=== PATIENT | male | born 1950 | race Caucasian/White ===

== ENCOUNTER 2016-09-13 04:58 | Emergency (ER) | payer OTHER, MEDICARE ==
[2016-09-13 05:02] VITALS: BP 128/96; PULSE 81; TEMP 97.4; BMI 25.8
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
== END 2016-09-13 05:11 | disposition home or self-care (01) ==
LOC: FER 04:58
DX: S61.215A Laceration without foreign body of left ring finger without damage to nail, initial encounter (principal); W26.0XXA Contact with knife, initial encounter; Y93.89 Activity, other specified; Y92.9 Unspecified place or not applicable
CPT/HCPCS: 99282-25

== ENCOUNTER 2017-02-18 16:05 | Emergency (ER) | payer OTHER, MEDICARE ==
--- NOTE | 2017-02-18 16:10 | PDOC ---
Attending Attestation - Resident Resident Name: Sophia Callahan - ED Attending Attestation I have performed the following: I have examined & evaluated the patient, The case was reviewed & discussed with the resident, I agree w/resident's findings & plan, Exceptions are as noted - HPI HPI: The patient is a 66 yo M HTN, HLD, ADHD, recurrent pneumonia, asthma, sciatica, L4 disc herniation, substance abuse (opioids) clean for 8 years who presents with pain radiating from his left lower back down to his L foot. Patient states he was performing side bending exercises with 45 lb resistance on 6 days ago. He states he woke up next morning with pain radiating down his leg to his foot. Patient states the pain is extremely similar to his previous Dx of sciatica. Patient also endorses paresthesias in his legs bilaterally. Patient states he saw a pain management doctor who gave them scripts for a L hip xray and MRI. Patient denies chest pain, palpitations and lightheadedness. Patient denies nausea, vomiting, diarrhea and abdominal pain. Patient denies fevers and chills. Social Hx: Former opioid abuser. Clean for 8 years. - Physicial Exam PE: GENERAL: Well developed, well nourished. Awake and alert. No acute distress. HEENT: Normocephalic, atraumatic. PERRLA, EOMI. No conjunctival pallor. Sclera are non- icteric. Moist mucous membranes. Oropharynx is clear. NECK: Supple. Full ROM. No JVD. Carotid pulses 2+ and symmetric, without bruits. No thyromegaly. No lymphadenopathy. CARDIOVASCULAR: Regular rate and rhythm. No murmurs, rubs, or gallops. Distal pulses are 2+ and symmetric. PULMONARY: No evidence of respiratory distress. Lungs clear to auscultation bilaterally. No wheezing, rales or rhonchi. ABDOMINAL: Soft. Non-tender. Non-distended. No rebound or guarding. No organomegaly. Normoactive bowel sounds. MUSCULOSKELETAL Normal range of motion at all joints. No point tenderness of lumbosacral spine. No inflammatory changes. No demonstrable sensory or motor deficits to LE but there is subjective tingling in the distribution of L4L5. No bony deformities or tenderness. No CVA tenderness. EXTREMITIES: No cyanosis. No clubbing. No edema. No calf tenderness. SKIN: Warm and dry. Normal capillary refill. No rashes. No jaundice. NEUROLOGICAL: No gross focal neurological deficits. PSYCHIATRIC: Cooperative. Good eye contact. Appropriate mood and affect. - Medical Decision Making Documentation prepared by Mary Lim, acting as certified medical assistant for Blake Fu MD/. <Mary Lim - Last Filed: 02/18/17 17:00> - HPI HPI: 02/18/17 17:12 - Medical Decision Making 02/18/17 17:12 Patient with symptoms of recurrent lumbar disc disease L4-L5. No demonstrable neurologic deficits. Prescribed analgesics and muscle relaxants, with follow-up orthopedic community living specialist. Pain is improved after medication, and he is adequately ambulatory with his at discharge to follow-up as directed. <Blake Motta - Last Filed: 02/18/17 17:14>
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
[2017-02-18] MEDS ORDERED: KETOROLAC TROMETHAMINE 60 MG/2 ML VIAL IVPUSH ONE (16:38)
[2017-02-18] MEDS ORDERED: KETOROLAC TROMETHAMINE 60 MG/2 ML VIAL IM ONE (16:39)
[2017-02-18] MEDS ORDERED: CYCLOBENZAPRINE HCL 10 MG TABLET (FP) PO ONE ×2 (16:41)
[2017-02-18] MEDS ORDERED: CYCLOBENZAPRINE HCL 10 MG TABLET (FP) ONE (16:43)
[2017-02-18] MEDS ORDERED: KETOROLAC TROMETHAMINE 60 MG/2 ML VIAL ONE (16:43)
[2017-02-18 17:02] VITALS: BP 116/81; PULSE 75; TEMP 98; BMI 24.7
== END 2017-02-18 17:48 | disposition home or self-care (01) ==
LOC: FER 16:05
PROC: 3E0233Z Introduction of Anti-inflammatory into Muscle, Percutaneous Approach (ICD-10-PCS; principal; 2017-02-18)
PROC: 3E0333Z Introduction of Anti-inflammatory into Peripheral Vein, Percutaneous Approach (ICD-10-PCS; 2017-02-18)
DX: M54.32 Sciatica, left side (principal); F90.9 Attention-deficit hyperactivity disorder, unspecified type; Z87.01 Personal history of pneumonia (recurrent); E78.5 Hyperlipidemia, unspecified; I10 Essential (primary) hypertension
CPT/HCPCS: 96372; 96374; 99283-25

== ENCOUNTER 2017-03-21 22:18 | Emergency (ER) | payer OTHER, MEDICARE ==
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
[2017-03-21 22:26] VITALS: BP 135/85; PULSE 95; TEMP 98.2; BMI 26.6
== END 2017-03-21 22:35 | disposition home or self-care (01) ==
LOC: FER 22:18
DX: Z76.0 Encounter for issue of repeat prescription (principal); J44.9 Chronic obstructive pulmonary disease, unspecified; K21.9 Gastro-esophageal reflux disease without esophagitis; I10 Essential (primary) hypertension; E78.00 Pure hypercholesterolemia, unspecified; F90.9 Attention-deficit hyperactivity disorder, unspecified type; Z87.820 Personal history of traumatic brain injury
CPT/HCPCS: 99281-25

== ENCOUNTER 2017-06-15 14:55 | Emergency (ER) | payer OTHER ==
[2017-06-15 15:06] VITALS: BP 110/76; PULSE 87; BMI 25.2
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
[2017-06-15 15:37] LABS: BASOPHIL 0.5 % (0-2.0); EOSINOPHIL 2.8 % (0-4.5); MCH 29.6 pg (25.7-33.7); MCHC 32.8 g/dl (32.0-35.9); MEAN CELL VOLUME 90.4 fl (80-96); MEAN PLT VOLUME 9.5 fl (7.5-11.1); NEUTROPHILS 73.7 % (42.8-82.8); PLATELET COUNT 262 K/MM3 (134-434); RDW 14.4 % (11.9-15.9); WHITE BLOOD COUNT 10.9 K/mm3 (4.0-10.0)
[2017-06-15 15:45] LABS: ALBUMIN 3.9 g/dl (3.4-5.0); ALK PHOS 86 U/L (45-117); ANION GAP 6 (8-16); BILIRUBIN,TOTAL 0.2 mg/dL (0.2-1.0); CALCIUM 9.5 mg/dL (8.5-10.1); CO2 29 mmol/L (21-32); CREATININE 1.2 mg/dL (0.7-1.3); GLUCOSE,RANDOM 134 mg/dL (74-106); SGOT/AST 30 U/L (15-37); SGPT/ALT 48 U/L (12-78); TOT PROT 7.7 g/dl (6.4-8.2)
[2017-06-15 15:55] LABS: INR 1.07 (0.82-1.09); PROTHROMBIN TIME (PATIENT) 12.1 SEC (9.98-11.88)
[2017-06-15 15:58] LABS: ACTIVATED PTT 33.1 SECONDS (26.9-34.4)
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
== END 2017-06-15 18:53 | disposition home or self-care (01) ==
LOC: JER 14:55
CPT/HCPCS: 36415; 70450-TC; 73070-TC-RT; 80053; 85025; 85610; 85730; 99281-25

== ENCOUNTER 2017-08-19 22:21 | Emergency (ER) | payer OTHER, MEDICARE ==
[2017-08-19 22:27] VITALS: BP 112/58; PULSE 72; TEMP 97.6; BMI 28.0
[2017-08-19] MEDS ORDERED: ACETAMINOPHEN 500 MG TABLET (FP) PO ONE (22:27)
--- NOTE | 2017-08-19 22:28 | PDOC ---
History of Present Illness - General Chief Complaint: Injury Stated Complaint: S/P FALL HIT HEAD Time Seen by Provider: 08/19/17 22:22 History Source: Patient Exam Limitations: No Limitations - History of Present Illness Initial Comments: 08/19/17 22:29 This is a 66-year-old male who has history of chronic back pain, hypertension, high cholesterol, and concussions in the past. Patient said that he was carrying some groceries into his house when he slipped on some wet grass and fell hitting the back of his head on the ground. Patient did not pass out. Patient complaining of headache to the back but said he did take some tramadol for the headache. Patient denies any nausea. Patient said he had some blurry vision at the time immediately after the fall. Patient denies any extremity injuries or pain. PAST MEDICAL HISTORY: no significant history PAST SURGICAL HISTORY: no significant history FAMILY HISTORY: no pertinant history SOCIAL HISTORY: Pt lives with family and is employed. MEDICATIONS: reviewed ALLERGIES: As per nursing notes Review of Systems General: No fevers or chills, no weakness, no weight loss HEENT: No change in vision. No sore throat,. No ear pain CardioVascular: No chest pain or shortness of breath Respiratory:No cough, or wheezing. Gastrointestinal: no nausea, vomitting, diarrhea or constipation, No rectal bleeding Genitourinary: No dysuria, hematuria, or frequency Musculoskeletal: No joint or muscle pain or swelling Neurologic: No headache, vertigo, dizziness or loss of consciousness Psychiatric: nor depression Skin: No rashes or easy bruising Endocrine: no increased thirst or abnormal weight change Allergic: no skin or latex allergy All other systems reviewed and normal Exam: General: Well-nourished well-developed individual, no acute distress HEENT: Throat: Normal, tonsils normal, no erythema or exudate Neck: Supple, no meningeal signs, no lymphadenopathy Head posterior occiput there is no palpable contusion or tenderness Cervical spine: There is no tenderness on palpation of the spinous processes there is full range of motion without pain Eyes::Pupils equal reactive and round, extraocular motion intact Chest: Nontender to palpation Cardiac: S1-S2 normal, regular rate and rhythm, no murmurs rubs or gallops Respiratory: Lungs clear to auscultation bilateral Abdomen: Soft, nondistended, normal bowel sounds, nontender to palpation diffusely Extremities: Warm, dry, no cyanosis, clubbing, or edema Skin: No rashes Neuro: Alert and oriented x3, CN II - XII intact, nonfocal exam with normal strength, normal sensation, normal reflexes, normal gait, Psych: Normal mood and affect Medical decision making this is a 66-year-old male who slipped and fell hitting the back of his head on the ground. Patient did not pass out but does have some nausea and will obtain a CAT scan to rule out any intracranial pathology given his age We'll reassess and follow up on the results of the CAT scan 08/19/17 23:[address] normal no acute pathology, vision remains without complaints, headache is improved and patient expressed that he wants to go home as soon as possible Assessment and plan: This is 66-year-old male who slipped and fell hitting his head. Patient had a head CT that was normal. Patient had no other evidence of any other injuries including no cervical spine injury or extremity injuries. Patient given head injury discharge instructions and discharged home. Past History - Past Medical History Allergies/Adverse Reactions: Allergies Allergy/AdvReac Type Severity Reaction Status Date / Time lamotrigine [From Lamictal] Allergy Intermediate Verified 06/15/17 15:06 nickel Allergy Verified 06/15/17 15:06 trazodone Allergy Verified 06/15/17 15:06 gatifloxacin [From Tequin] AdvReac Intermediate DIARRHEA Verified 06/15/17 15:06 quetiapine fumarate AdvReac Intermediate DIZZINESS, Verified 06/15/17 15:06 [From Seroquel] NIGHTMARES zolpidem tartrate AdvReac Mild DEPRESSION, Verified 06/15/17 15:06 [From Ambien] DISORIENTED Home Medications: Ambulatory Orders Amlodipine Besylate [Norvasc -] 10 mg PO DAILY 12/24/11 Aspirin [Ecotrin] 325 mg PO DAILY 06/07/16 Acetaminophen [Tylenol .Regular Strength -] 650 mg PO Q4H PRN #0 tablet Docusate Sodium [Colace -] 100 mg PO TID capsule 06/10/16 Cyclobenzaprine HCl [Flexeril -] 5 mg PO TID PRN #30 tablet 02/18/17 Ibuprofen 800 mg PO TID #30 tablet 02/18/17 Tramadol HCl 50 mg PO TID PRN #30 tablet MDD 150 MG 02/18/17 Lorazepam [Ativan] 2 mg PO TID #5 tablet MDD 3 03/21/17 Diclofenac Sodium [Voltaren] 2 gm TP QID PRN #100 gel..gram. 06/15/17 Anemia: No Asthma: Yes Cancer: No Cardiac Disorders: No CVA: No COPD: Yes CHF: No Dementia: No Diabetes: No GI Disorders: Yes (GERD) Disorders: No HTN: Yes Hypercholesterolemia: Yes Liver Disease: No Psychiatric Problems: Yes (ADHD, PANIC ATTACKS) Seizures: No Thyroid Disease: No - Surgical History Abdominal Surgery: No Appendectomy: No Cardiac Surgery: No Cholecystectomy: No Lung Surgery: No Neurologic Surgery: No Orthopedic Surgery: Yes (LT SHOULDER SX) - Immunization History Immunization Up to Date: Yes - Suicide/Smoking/Psychosocial Hx Smoking Status: No Smoking History: Unknown if ever smoked Have you smoked in the past 12 months: No Number of Cigarettes Smoked Daily: 0 'Breaking Loose' booklet given: 06/07/16 Hx Alcohol Use: No Drug/Substance Use Hx: No Substance Use Type: None Hx Substance Use Treatment: No *DC/Admit/Observation/Transfer Diagnosis at time of Disposition: Head injury Qualifiers: Encounter type: initial encounter Qualified Code(s): S09.90XA - Unspecified injury of head, initial encounter Fall Qualifiers: Encounter type: initial encounter Qualified Code(s): W19.XXXA - Unspecified fall, initial encounter - Discharge Dispostion Disposition: HOME Condition at time of disposition: Good - Referrals Referrals: Richy Castro MD [Primary Care Provider] - - Patient Instructions Printed Discharge Instructions: DI for Closed Head Injury Additional Instructions: Tylenol as needed for pain 2 extra strength tablets every 4-6 hours Return to the emergency department immediately with ANY new, persistent or worsening symptoms. Continue any medications as previously prescribed by your physician. You should follow up with your primary doctor as soon as possible regarding today's emergency department visit. . Please make sure your doctor reviews the results of your emergency evaluation. Thank you for coming to the Emergency Department today for your care. It was a pleasure to see you today. Please note that your evaluation is INCOMPLETE until you follow-up with your doctor. Someone should check on you once tonight during the night. You should be arousable to your Normal level of arousability for that time of the night. If you have been vomiting, have had a seizure, or you are unable to be aroused or the person checking on you is concerned that there has been a change in your mental status they should call 911 and have you brought back to the emergency department. - Post Discharge Activity
[2017-08-19] MEDS ORDERED: ACETAMINOPHEN 325 MG TABLET (FP) ONE (22:30)
== END 2017-08-19 23:13 | disposition home or self-care (01) ==
LOC: FER 22:21
DX: S09.90XA Unspecified injury of head, initial encounter (principal); W18.39XA Other fall on same level, initial encounter; Y93.89 Activity, other specified; Y92.008 Other place in unspecified non-institutional (private) residence as the place of occurrence of the external cause; F90.9 Attention-deficit hyperactivity disorder, unspecified type; I10 Essential (primary) hypertension; E78.00 Pure hypercholesterolemia, unspecified; K21.9 Gastro-esophageal reflux disease without esophagitis; J45.909 Unspecified asthma, uncomplicated
CPT/HCPCS: 70450-TC; 99282-25

== ENCOUNTER 2017-11-14 15:46 | Emergency (ER) | payer OTHER, MEDICARE ==
[2017-11-14 16:23] VITALS: BP 130/70; PULSE 70; TEMP 98.7; BMI 25.7
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
[2017-11-14 18:18] LABS: BASO % 0.2 % (0-2.0); EOS % 0.1 % (0-4.5); HEMATOCRIT 45.1 % (35.4-49); LYMPH % 9.5 % (8-40); MCH 29.8 pg (25.7-33.7); MCHC 33.3 g/dl (32.0-35.9); MEAN CELL VOLUME 89.6 fl (80-96); MEAN PLT VOLUME 9.6 fl (7.5-11.1); NEUT % 85.2 % (42.8-82.8); PLATELET COUNT 273 K/MM3 (134-434); RBC 5.03 M/mm3 (4.00-5.60); RDW 13.3 % (11.9-15.9)
[2017-11-14 18:19] LABS: ALK PHOS 75 U/L (32-92); ANION GAP 8 (8-16); BLOOD UREA NITROGEN 17 mg/dl (7-18); CALCIUM 9.2 mg/dl (8.4-10.2); CHLORIDE 102 mmol/L (98-107); CO2 26 mmol/L (22-28); GLUCOSE,RANDOM 102 mg/dl (74-106); POTASSIUM 3.7 mmol/L (3.5-5.1); SGOT/AST 35 U/L (10-42); SGPT/ALT 31 U/L (10-40); SODIUM 136 mmol/L (136-145); TOT PROT 7.3 g/dl (6.4-8.3)
[2017-11-14 18:47] LABS: BILIRUBIN,TOTAL < 0.5 mg/dl (0.2-1.0)
[2017-11-14] MEDS ORDERED: AZITHROMYCIN 250 MG TABLET PO ONE (18:51)
[2017-11-14] MEDS ORDERED: AZITHROMYCIN 250 MG TABLET ONE (18:56)
--- NOTE | 2017-11-15 08:36 | EKG ---
Test Reason : Blood Pressure : / mmHG Vent. Rate : 061 BPM Atrial Rate : 061 BPM P-R Int : 144 ms QRS Dur : 096 ms QT Int : 430 ms P-R-T Axes : 069 004 045 degrees QTc Int : 432 ms NORMAL SINUS RHYTHM POSSIBLE LEFT ATRIAL ENLARGEMENT POSSIBLE INFERIOR INFARCT (CITED ON OR BEFORE 07-JUN-2008) ABNORMAL ECG WHEN COMPARED WITH ECG OF 07-JUN-2008 16:20, MINIMAL CRITERIA FOR ANTERIOR INFARCT ARE NO LONGER PRESENT Confirmed by ALPESH DAY, FELICIA ([id number]) on 11/15/2017 8:36:08 AM Referred By: MOE Confirmed By:FELICIA BETTS MD
== END 2017-11-14 19:06 | disposition home or self-care (01) ==
LOC: FER 15:46
DX: J44.9 Chronic obstructive pulmonary disease, unspecified (principal); J20.9 Acute bronchitis, unspecified
CPT/HCPCS: 36415; 71046-TC-FY; 80053; 84484; 85025; 93005; 99282-25

== ENCOUNTER 2018-09-06 12:39 | Inpatient (IN) | payer OTHER ==
--- NOTE | 2018-09-06 13:06 | PDOC ---
History of Present Illness - General Chief Complaint: Shortness of Breath Stated Complaint: SHORT OF BREATH Time Seen by Provider: 09/06/18 12:41 - History of Present Illness Initial Comments: 09/06/18 13:16 67yo M hx HTN, HL, TBI, asthma/bronchiectasis on albuterol and advair p/w 2 days of SOB, lightheadness, rapid breathing, productive cough of yellow sputum, and anxiety. Pt also states he had 1 episode of blood in his sputum today prompting him to come to the ED. Also reports 1 day of fever with tmax of 102. Denies CP, headache, focal weakness/numbness, abd pain, LE edema, N/V/D. Pt concerned he has PNA. Past History - Past Medical History Allergies/Adverse Reactions: Allergies Allergy/AdvReac Type Severity Reaction Status Date / Time lamotrigine [From Lamictal] Allergy Intermediate Verified 11/14/17 16:04 nickel Allergy Verified 11/14/17 16:04 trazodone Allergy Verified 11/14/17 16:04 gatifloxacin [From Tequin] AdvReac Intermediate DIARRHEA Verified 11/14/17 16:04 quetiapine fumarate AdvReac Intermediate DIZZINESS, Verified 11/14/17 16:03 [From Seroquel] NIGHTMARES zolpidem tartrate AdvReac Mild DEPRESSION, Verified 11/14/17 16:03 [From Ambien] DISORIENTED Home Medications: Ambulatory Orders Amlodipine Besylate [Norvasc -] 10 mg PO DAILY 12/24/11 Tramadol HCl 50 mg PO TID PRN #30 tablet MDD 150 MG 02/18/17 Aspirin 81 mg PO DAILY 11/14/17 Aspirin/Acetaminophen/Caffeine [Excedrin Migraine Caplet] 1 each PO PRN Azithromycin [Zithromax 250mg Tablets -] 250 mg PO DAILY #4 tablet 11/14/17 Clonidine HCl 0.2 mg PO QID 11/14/17 Dextroamphetamine/Amphetamine [Adderall 10 mg Tablet] 30 mg PO TID 11/14/17 Lorazepam [Ativan] 4 mg PO TID MDD 3 11/14/17 Anemia: No Asthma: Yes Cancer: No Cardiac Disorders: No CVA: No COPD: Yes CHF: No Dementia: No Diabetes: No GI Disorders: Yes (GERD) Disorders: No HTN: Yes Hypercholesterolemia: Yes Liver Disease: No Psychiatric Problems: Yes (ADD) Seizures: No Thyroid Disease: No - Surgical History Abdominal Surgery: No Appendectomy: No Cardiac Surgery: No Cholecystectomy: No Lung Surgery: No Neurologic Surgery: No Orthopedic Surgery: Yes (LT SHOULDER SX) - Immunization History Immunization Up to Date: Yes - Suicide/Smoking/Psychosocial Hx Smoking Status: No Smoking History: Never smoked Have you smoked in the past 12 months: No Number of Cigarettes Smoked Daily: 0 'Breaking Loose' booklet given: 06/07/16 Hx Alcohol Use: No Drug/Substance Use Hx: No Substance Use Type: None Hx Substance Use Treatment: No Review of Systems - Review of Systems Comments:: 09/06/18 14:03 GENERAL/CONSTITUTIONAL: +fever and chills. No weakness. HEAD, EYES, EARS, NOSE AND THROAT: No change in vision. No ear pain or discharge. No sore throat. GASTROINTESTINAL: No nausea, vomiting, diarrhea or constipation. GENITOURINARY: No dysuria, frequency, or change in urination. CARDIOVASCULAR: No chest pain, +shortness of breath. RESPIRATORY: +cough, hemoptysis. No wheezing MUSCULOSKELETAL: No joint or muscle swelling or pain. No neck or back pain. SKIN: No rash NEUROLOGIC: No headache, vertigo, loss of consciousness, or change in strength/ sensation. ENDOCRINE: No increased thirst. No abnormal weight change. HEMATOLOGIC/LYMPHATIC: No anemia, easy bleeding, or history of blood clots. ALLERGIC/IMMUNOLOGIC: No hives or skin allergy. *Physical Exam - Vital Signs Last Vital Signs Temp Pulse Resp BP Pulse Ox 99.5 F 110 H 40 H 155/76 100 09/06/18 12:40 09/06/18 12:40 09/06/18 12:40 09/06/18 12:40 09/06/18 12:40 - Physical Exam Comments: 09/06/18 14:05 GENERAL: Awake, alert, and fully oriented, in mild respiratory distress speaking in 3-4 word sentences EYES: PERRLA, EOMI, sclera anicteric, conjunctiva clear ENT: Nares patent, oropharynx clear without exudates. Moist mucosa LUNGS: +crackles b/l R>L, +subcostal retractions, tachypneic to 30 HEART: Regular rate and rhythm, normal S1 and S2, no murmurs, rubs or gallops ABDOMEN: Soft, nontender, normoactive bowel sounds. No guarding, no rebound. No masses : rectal temp 101 EXTREMITIES: Normal range of motion, no edema. No cords, erythema, or tenderness NEUROLOGICAL: Normal speech, cranial nerves intact, equal strength and sensation b/l, normal gait SKIN: Warm, Dry, normal turgor, no rashes or lesions noted. Moderate Sedation - Procedure Monitoring Vital Signs: Procedure Monitoring Vital Signs Temperature 99.5 F 09/06/18 12:40 Pulse Rate 110 H 09/06/18 12:40 Respiratory Rate 40 H 09/06/18 12:40 Blood Pressure 155/76 09/06/18 12:40 O2 Sat by Pulse Oximetry (%) 100 09/06/18 12:40 Heart Score/ECG Review #1 09/06/18 14:09 Twelve-lead EKG was performed and reviewed by me. Twelve-lead EKG was performed and reviewed by me. Normal sinus rhythm, rate 96. Normal axis. Wavy baseline but no ARIELA seen ED Treatment Course - LABORATORY CBC & Chemistry Diagram: 09/06/18 01:26 09/06/18 13:54 Medical Decision Making - Critical Care Time Total Critical Care Time (minutes): 60 Critical Care Statement: The care of this patient involved high complexity decision making to prevent further life threatening deterioration of the patient 's condition and/or to evaluate & treat vital organ system(s) failure or risk of failure. - Medical Decision Making 09/06/18 14:10 67yo M w MMP including asthma/bronchiectasis presents to the ED with SOB, hemoptysis, fever. Vitals with fever 101, tachypnea, hypoxia 87%. Exam with fair air movement with minimal wheezing, and b/l R>L crackles. Will put pt on bipap, treat with duonebs, steroids, CAP coverage. Plan to check labs, ABG as well. 09/06/18 17:29 ABG wnl (was done before bipap) Pt much more comfortable after 3 hours on bipap, states SOB improved and requests dinner pt weaned off bipap now to NC O2 sat 90-93%, RR 20 eating dinner Case discussed wtih Dr. Chapin, pt admitted to in tele Case discussed in detail with admitting physician including history, physical exam and ancillary studies. Admitting physician has assumed care for the patient, will follow all pending diagnostics and will complete the evaluation and treatment. *DC/Admit/Observation/Transfer Diagnosis at time of Disposition: Pneumonia, SOB (shortness of breath), Productive cough - Discharge Dispostion Condition at time of disposition: Stable Decision to Admit order: Yes - Referrals Referrals: Bhupinder Gonzalez MD [Staff Physician] - - Patient Instructions - Post Discharge Activity - Attestations Physician Attestion: 09/06/18 17:31 I, Dr. Karolina Yanez MD, attest that this document has been prepared under my direction and personally reviewed by me in its entirety. I further attest, that it accurately reflects all work, treatment, procedures and medical decision -making performed by me.
[2018-09-06] MEDS ORDERED: CEFTRIAXONE 1,000 MG in DEXTROSE 5%-WATER - 50 ML IVPB ONE (13:58)
[2018-09-06] MEDS ORDERED: AZITHROMYCIN IVPB 500 MG in DEXTROSE 5%-WATER - 250 ML IVPB ONE (13:59)
[2018-09-06] MEDS ORDERED: cefTRIAXone SODIUM 1 GM VIAL ONE (14:08)
[2018-09-06] MEDS ORDERED: methylPREDNISolone NA SUCC 125 MG/2 ML VIAL ONE (14:12)
[2018-09-06] MEDS ORDERED: ALBUTEROL SO4 2.5/IPRATROPIUM 0.5 INH SOL 3 ML VIAL.NEB. NEB ONE ×2 (14:13→14:40)
[2018-09-06] MEDS ORDERED: ACETAMINOPHEN 1000 MG/100 ML VIAL (NON FORMULARY) IVPB ONE (14:20)
[2018-09-06] MEDS ORDERED: ACETAMINOPHEN INJECTION 100 ML IVPB ONE (14:27)
[2018-09-06 14:30] LABS: ALBUMIN 3.4 g/dl (3.4-5.0); ALK PHOS 73 U/L (45-117); ANION GAP 12 MMOL/L (8-16); BILIRUBIN,TOTAL 0.9 mg/dl (0.2-1); BLOOD UREA NITROGEN 12 mg/dl (7-18); CALCIUM 8.7 mg/dl (8.5-10); CHLORIDE 105 mmol/L (98-107); CO2 21 mmol/L (21-32); GLUCOSE,RANDOM 120 mg/dl (74-106); POTASSIUM 3.8 mmol/L (3.5-5.1); SGOT/AST 53 U/L (15-37); SGPT/ALT 44 U/L (13-61); SODIUM 138 mmol/L (136-145); TOT PROT 7.1 g/dl (6.4-8.2)
[2018-09-06 14:36] LABS: BASO % 0.4 % (0-2.0); EOS % 1.2 % (0-4.5); HEMOGLOBIN 11.8 GM/dl (11.7-16.9); LYMPH % 9.8 % (8-40); MEAN CELL VOLUME 84.4 fl (80-96); MEAN PLT VOLUME 9.3 fl (7.5-11.1); MONO % 7.8 % (3.8-10.2); NEUT % 80.8 % (42.8-82.8); PLATELET COUNT 272 K/MM3 (134-434); RBC 4.38 M/mm3 (4.00-5.60); RDW 13.3 % (11.9-15.9); WHITE BLOOD COUNT 9.8 K/mm3 (4.0-10.8)
[2018-09-06] MEDS ORDERED: methylPREDNISolone NA SUCC 125 MG/2 ML VIAL IVPB ONE (14:40)
[2018-09-06] MEDS ORDERED: AZITHROMYCIN 500 MG VIAL IVPB ONE (14:47)
[2018-09-06 16:21] LABS: ARTERIAL BLD GAS O2 SATURATION 99.2 % (90-98.9); ARTERIAL BLOOD GAS BASE EXCESS -1.8 meq/l (-2-2); ARTERIAL BLOOD GAS PCO2 29.2 mmHg (35-45); ARTERIAL BLOOD GAS pH 7.47 (7.35-7.45)
[2018-09-06 16:25] LABS: PH,URINE 8.5 (4.5-8); URINE APPEARANCE Clear; URINE BILIRUBIN Negative (NEGATIVE); URINE COLOR Yellow; URINE GLUCOSE (UA) Negative (NEGATIVE); URINE KETONE Negative (NEGATIVE); URINE LEUK ESTERASE Negative (NEGATIVE); URINE NITRITE Negative (NEGATIVE); URINE PROTEIN Negative (NEGATIVE); URINE UROBILINOGEN 0.2 (0.2-1.0)
[2018-09-06 18:28] VITALS: BMI 26.9
[2018-09-06] MEDS: ACETAMINOPHEN 325 MG TABLET (FP) PO PRN (19:10)
[2018-09-06] MEDS ORDERED: ACETAMINOPHEN 325 MG TABLET (FP) PO PRN (19:53)
[2018-09-06] MEDS ORDERED: ACETAMINOPHEN PO PRN (19:57)
[2018-09-06] MEDS ORDERED: traMADol HCL 50 MG TABLET PO PRN (19:57)
[2018-09-06] MEDS ORDERED: ACETAMINOPHEN 325 MG TABLET (FP) ONE (19:59)
[2018-09-06] MEDS ORDERED: DOXEPIN HCL 25 MG CAPSULE PO SCH ×2 (20:00→22:00)
[2018-09-06] MEDS ORDERED: BUDESONIDE/FORMETEROL FUMARATE 160/4.5 mcg INHALER IH SCH (20:00)
[2018-09-06] MEDS: ALBUTEROL SO4 0.083% IH SOL 2.5 MG/3 ML VIAL.NEB. NEB PRN (20:10)
[2018-09-06] MEDS: methylPREDNISolone NA SUCC 40 MG/1 ML VIAL IVPUSH SCH (20:13)
--- NOTE | 2018-09-06 20:25 | HP ---
CHIEF COMPLAINT: worsening shortness of breath and cough for 2 days HISTORY OF PRESENT ILLNESS: This is a 67 year old male with history significant for traumatic brain injury, attention deficit disorder(on adderal), asthma/bronchiectasis (on albuterol and advair), hypertension(on amlodipine) and hyperlipidemia who presents with 2 days of SOB, productive cough of yellow sputum, lightheadedness and anxiety. Pt also reported he had 1 episode of bloody sputum and fever with temperature maximum of 102. He denied chest pain, headache, focal weakness/numbness, abdominal pain ,nausea, vomiting or diarrhea. In the ER he had wheezing and crackles. He was treated with duonebulizers , IV antibiotics with one dosage of IV Azithromycin 500 mg , ceftriaxone 1 gm and methylprednisolone 125 mg. He had a normal ABG, initially was placed on a bipap machine and weaned off. Labs notable for a normal WBC and lactic acid level, BNP 2157. Influenzae A and B were negative. He was admitted for further medical management. Recent Travel:Denies PAST MEDICAL HISTORY: TBI Attention deficit disorder Asthma/bronchiectasis Hypertension Hyperlipidemia Anxiety PAST SURGICAL HISTORY:tonsillectomy, left rotator cuff surgery Social History: Smoking: denies Alcohol:denies Drugs: denies Family History:noncontributory Allergies lamotrigine [From Lamictal] Allergy (Intermediate, Verified 11/14/17 16:04) nickel Allergy (Verified 11/14/17 16:04) trazodone Allergy (Verified 11/14/17 16:04) HALLUCINATIONS gatifloxacin [From Tequin] Adverse Reaction (Intermediate, Verified 11/14/17 16: 04) DIARRHEA quetiapine fumarate [From Seroquel] Adverse Reaction (Intermediate, Verified 16:03) DIZZINESS, NIGHTMARES zolpidem tartrate [From Ambien] Adverse Reaction (Mild, Verified 11/14/17 16:03) DEPRESSION, DISORIENTED HOME MEDICATIONS: Home Medications Medication Instructions Recorded Amlodipine Besylate [Norvasc -] 10 mg PO DAILY 12/24/11 Tramadol HCl 50 mg PO TID PRN #30 tablet MDD 02/18/17 150 MG Aspirin 81 mg PO DAILY 11/14/17 Aspirin/Acetaminophen/Caffeine 1 each PO PRN 11/14/17 [Excedrin Migraine Caplet] Azithromycin [Zithromax 250mg 250 mg PO DAILY #4 tablet 04/21/18 Tablets -] Clonidine HCl 0.2 mg PO QID 11/14/17 Dextroamphetamine/Amphetamine 30 mg PO TID 11/14/17 [Adderall 10 mg Tablet] Lorazepam [Ativan] 4 mg PO TID MDD 3 11/14/17 Acetaminophen 8 Hour 650 mg PO TID PRN 09/06/18 REVIEW OF SYSTEMS CONSTITUTIONAL: Absent: fever, chills, diaphoresis, generalized weakness, malaise, loss of appetite, weight change HEENT: Absent: rhinorrhea, nasal congestion, throat pain, throat swelling, difficulty swallowing, mouth swelling, ear pain, eye pain, visual changes CARDIOVASCULAR: Absent: chest pain, syncope, palpitations, irregular heart rate, lightheadedness , peripheral edema RESPIRATORY: Absent: cough, shortness of breath, dyspnea with exertion, orthopnea, wheezing, stridor, hemoptysis(one episode) GASTROINTESTINAL: Absent: abdominal pain, abdominal distension, nausea, vomiting, diarrhea, constipation, melena, hematochezia GENITOURINARY: Absent: dysuria, frequency, urgency, hesitancy, hematuria, flank pain, genital pain MUSCULOSKELETAL: Absent: myalgia, arthralgia, joint swelling, back pain, neck pain SKIN: Absent: rash, itching, pallor HEMATOLOGIC/IMMUNOLOGIC: Absent: easy bleeding, easy bruising, lymphadenopathy, frequent infections ENDOCRINE: Absent: unexplained weight gain, unexplained weight loss, heat intolerance, cold intolerance NEUROLOGIC: Absent: headache, focal weakness or paresthesias, dizziness, unsteady gait, seizure, mental status changes, bladder or bowel incontinence PSYCHIATRIC: Absent: anxiety, depression, suicidal or homicidal ideation, hallucinations. PHYSICAL EXAMINATION Vital Signs - 24 hr 09/06/18 09/06/18 09/06/18 12:40 13:00 13:50 Temperature 99.5 F 101 F H Pulse Rate 110 H 102 H Pulse Rate [ Apical] Respiratory 40 H Rate Blood Pressure 155/76 Blood Pressure [Arm] O2 Sat by Pulse 100 94 L 87 L Oximetry (%) 09/06/18 09/06/18 09/06/18 14:05 14:51 14:52 Temperature Pulse Rate 89 Pulse Rate [ 91 H Apical] Respiratory 23 H Rate Blood Pressure Blood Pressure 114/84 [Arm] O2 Sat by Pulse 100 100 Oximetry (%) 09/06/18 09/06/18 09/06/18 14:55 15:00 16:03 Temperature Pulse Rate 96 H Pulse Rate [ 86 85 Apical] Respiratory 26 H 22 H Rate Blood Pressure Blood Pressure 134/70 119/73 [Arm] O2 Sat by Pulse 100 100 100 Oximetry (%) 09/06/18 09/06/18 09/06/18 17:15 18:19 18:24 Temperature 98.1 F 97.8 F Pulse Rate 92 H 93 H Pulse Rate [ 94 H Apical] Respiratory 22 H 19 20 Rate Blood Pressure 112/82 128/57 L Blood Pressure 102/86 [Arm] O2 Sat by Pulse 100 88 L Oximetry (%) GENERAL: awake, alert and oriented to person place and time, anxious HEAD: normal with no signs of trauma EYES: pupils equal, round and reactive to light EARS, NOSE, THROAT: ears normal, nares patent NECK: normal range of motion supple LUNGS: breath sounds equal, no wheezing, no rales, no use of accessory muscles HEART: Regular rate and rhythm, normal S1 and S2 without murmur, rub or gallop ABDOMEN: soft, nontender, not distended, normoactive bowel sounds, no guarding, no rebound, no masses MUSCULOSKELETAL: normal range of motion at all joints UPPER EXTREMITIES: 2+ pulses, warm, well-perfused LOWER EXTREMITIES: 2+ pulses, warm, well-perfused 1 + edema present bilaterally NEUROLOGICAL: no neuro focal deficits PSYCHIATRIC: cooperative, anxious, does not give good eye contact SKIN: warm, dry, normal turgor, no rashes or lesions noted, normal capillary refill Laboratory Results - last 24 hr 09/06/18 09/06/18 09/06/18 01:26 01:45 13:54 WBC 9.8 RBC 4.38 Hgb 11.8 Hct 37.0 MCV 84.4 MCH 27.0 MCHC 32.0 RDW 13.3 Plt Count 272 MPV 9.3 Absolute Neuts (auto) 7.9 Neutrophils % 80.8 Lymphocytes % 9.8 D Monocytes % 7.8 Eosinophils % 1.2 Basophils % 0.4 Anticoagulation Therapy Puncture Site ABG pH ABG pCO2 at Pt Temp ABG pO2 at Pt Temp ABG HCO3 ABG O2 Sat (Measured) ABG O2 Content ABG Base Excess Umer Test O2 Delivery Device Oxygen Flow Rate Vent Mode Vent Rate Mechanical Rate Pressure Support Vent Sodium 138 Potassium 3.8 Chloride 105 Carbon Dioxide 21 Anion Gap 12 BUN 12 Creatinine 1.0 Creat Clearance w eGFR > 60 Random Glucose 120 H Lactic Acid Calcium 8.7 Magnesium 2.1 Total Bilirubin 0.9 AST 53 H ALT 44 Alkaline Phosphatase 73 Troponin I B-Natriuretic Peptide Total Protein 7.1 Albumin 3.4 Urine Color Urine Appearance Urine pH Ur Specific [place] Urine Protein Urine Glucose (UA) Urine Ketones Urine Blood Urine Nitrite Urine Bilirubin Urine Urobilinogen Ur Leukocyte Esterase Influenza A (Rapid) Influenza B (Rapid) 09/06/18 09/06/18 09/06/18 13:54 13:54 14:04 WBC RBC Hgb Hct MCV MCH MCHC RDW Plt Count MPV Absolute Neuts (auto) Neutrophils % Lymphocytes % Monocytes % Eosinophils % Basophils % Anticoagulation Therapy Puncture Site ABG pH ABG pCO2 at Pt Temp ABG pO2 at Pt Temp ABG HCO3 ABG O2 Sat (Measured) ABG O2 Content ABG Base Excess Umer Test O2 Delivery Device Oxygen Flow Rate Vent Mode Vent Rate Mechanical Rate Pressure Support Vent Sodium Potassium Chloride Carbon Dioxide Anion Gap BUN Creatinine Creat Clearance w eGFR Random Glucose Lactic Acid 1.2 Calcium Magnesium Total Bilirubin AST ALT Alkaline Phosphatase Troponin I 0.04 B-Natriuretic Peptide 2157.3 H Total Protein Albumin Urine Color Urine Appearance Urine pH Ur Specific [place] Urine Protein Urine Glucose (UA) Urine Ketones Urine Blood Urine Nitrite Urine Bilirubin Urine Urobilinogen Ur Leukocyte Esterase Influenza A (Rapid) Influenza B (Rapid) 09/06/18 09/06/18 09/06/18 14:20 14:20 16:02 WBC RBC Hgb Hct MCV MCH MCHC RDW Plt Count MPV Absolute Neuts (auto) Neutrophils % Lymphocytes % Monocytes % Eosinophils % Basophils % Anticoagulation Therapy No Result Required. Puncture Site No Result Required. ABG pH 7.47 H ABG pCO2 at Pt Temp 29.2 L ABG pO2 at Pt Temp 184.0 H* ABG HCO3 20.7 L ABG O2 Sat (Measured) 99.2 H ABG O2 Content 15.3 ABG Base Excess -1.8 Umer Test No Result Required. O2 Delivery Device No Result Required. Oxygen Flow Rate No Result Required. Vent Mode No Result Required. Vent Rate No Result Required. Mechanical Rate No Result Required. Pressure Support Vent No Result Required. Sodium Potassium Chloride Carbon Dioxide Anion Gap BUN Creatinine Creat Clearance w eGFR Random Glucose Lactic Acid Calcium Magnesium Total Bilirubin AST ALT Alkaline Phosphatase Troponin I B-Natriuretic Peptide Total Protein Albumin Urine Color Yellow Urine Appearance Clear Urine pH 8.5 H D Ur Specific [place] 1.020 Urine Protein Negative Urine Glucose (UA) Negative Urine Ketones Negative Urine Blood Negative Urine Nitrite Negative Urine Bilirubin Negative Urine Urobilinogen 0.2 Ur Leukocyte Esterase Negative Influenza A (Rapid) Negative Influenza B (Rapid) Negative 09/06/18 18:15 WBC RBC Hgb Hct MCV MCH MCHC RDW Plt Count MPV Absolute Neuts (auto) Neutrophils % Lymphocytes % Monocytes % Eosinophils % Basophils % Anticoagulation Therapy Puncture Site ABG pH ABG pCO2 at Pt Temp ABG pO2 at Pt Temp ABG HCO3 ABG O2 Sat (Measured) ABG O2 Content ABG Base Excess [place]mer Test O2 Delivery Device Oxygen Flow Rate Vent Mode Vent Rate Mechanical Rate Pressure Support Vent Sodium Potassium Chloride Carbon Dioxide Anion Gap BUN Creatinine Creat Clearance w eGFR Random Glucose Lactic Acid 1.1 Calcium Magnesium Total Bilirubin AST ALT Alkaline Phosphatase Troponin I B-Natriuretic Peptide Total Protein Albumin Urine Color Urine Appearance Urine pH Ur Specific [place] Urine Protein Urine Glucose (UA) Urine Ketones Urine Blood Urine Nitrite Urine Bilirubin Urine Urobilinogen Ur Leukocyte Esterase Influenza A (Rapid) Influenza B (Rapid) ASSESSMENT/PLAN: Mr. Cowart is a 67 year old male with history significant for traumatic brain injury, attention deficit disorder, asthma/bronchiectasis, hypertension and hyperlipidemia who presents with 2 days of SOB, productive cough of yellow sputum, one episode of hemoptysis, lightheadedness, anxiety and fever. Pneumonia Patient has been febrile. He was treated with one dosage of IV azithromycin and ceftriaxone. WBC and lactic acid are normal. Blood and sputum cultures are pending. Continue with IV Azithromycin. Pulmonary (Dr. Murray) and ID (Dr. Leonardo) are consulted for further evaluation and recommendations. Asthma Exacerbation Patient refusing BIPAP, continue with oxygen therapy by nasal canula 3 L, oxygen saturation at 93%, no tachycardia. Continue with IV methyprednisolone and albuterol nebulaizers q6hr. Pulmonary consulted. Elevated BNP Patient has bilateral lower extremity. On exam he has no JVD or rales. CXR shows no pleural efussion. Will check echocardiogram. Cardiology consulted. Hypertension Controlled.Continue with amlodipine and clonidine. Hyperlipidemia Continue with statin therapy. FEN Low sodium diet, monitor electrolytes. DVT Lovenox ordered. Visit type - Emergency Visit Emergency Visit: Yes ED Registration Date: 09/06/18 Care time: The patient presented to the Emergency Department on the above date and was hospitalized for further evaluation of their emergent condition. - New Patient This patient is new to me today: Yes Date on this admission: 09/07/18 - Critical Care Critical Care patient: No
[2018-09-06] MEDS ORDERED: LORazepam 1 MG TABLET PO PRN (21:33)
[2018-09-06] MEDS ORDERED: LORazepam 0.5 MG TABLET ONE (21:51)
[2018-09-06] MEDS: cloNIDine HCL 0.1 MG TABLET PO SCH (21:54)
[2018-09-06] MEDS: ATORVASTATIN CA 20 MG TABLET (FP) PO SCH (21:55)
[2018-09-06] MEDS ORDERED: HEPARIN NA (PORCINE) 5,000 UNITS/ML 1ML VIAL SQ SCH (22:00)
[2018-09-06] MEDS ORDERED: PATIENT'S OWN MEDICATION (NON-FORMULARY) (Dextroamphetamine/Amphetamine [Adderall 10 Mg Ta PO SCH (22:00)
[2018-09-06] MEDS ORDERED: LORAZEPAM 4 MG PO SCH (22:00)
[2018-09-06] MEDS ORDERED: PATIENT'S OWN MEDICATION (NON-FORMULARY) (Clonidine Hcl [Clonidine Hcl] 0.2 MG) PO SCH (22:00)
--- NOTE | 2018-09-06 22:02 | CON.CARD ---
Consult - History of Present Illness History of Present Illness: 67yo M hx HTN, HL, TBI, asthma/bronchiectasis on albuterol and advair p/w 2 days of SOB, lightheadness, rapid breathing, productive cough of yellow sputum, and anxiety. Pt also states he had 1 episode of blood in his sputum today prompting him to come to the ED. Also reports 1 day of fever with tmax of 102. Denies CP, headache, focal weakness/numbness, abd pain, LE edema, N/V/D. Pt concerned he has PNA. - Alcohol/Substance Use Hx Alcohol Use: No - Smoking History Smoking history: Never smoked Have you smoked in the past 12 months: No Aproximately how many cigarettes per day: 0 Home Medications - Allergies Allergies/Adverse Reactions: Allergies Allergy/AdvReac Type Severity Reaction Status Date / Time lamotrigine [From Lamictal] Allergy Intermediate Verified 11/14/17 16:04 nickel Allergy Verified 11/14/17 16:04 trazodone Allergy Verified 11/14/17 16:04 alprazolam [From Xanax] AdvReac Intermediate Verified 09/07/18 00:34 gatifloxacin [From Tequin] AdvReac Intermediate DIARRHEA Verified 11/14/17 16:04 quetiapine fumarate AdvReac Intermediate DIZZINESS, Verified 11/14/17 16:03 [From Seroquel] NIGHTMARES zolpidem tartrate AdvReac Mild DEPRESSION, Verified 11/14/17 16:03 [From Ambien] DISORIENTED - Home Medications Home Medications: Ambulatory Orders Amlodipine Besylate [Norvasc -] 10 mg PO DAILY 12/24/11 Tramadol HCl 50 mg PO TID PRN #30 tablet MDD 150 MG 02/18/17 Aspirin 81 mg PO DAILY 11/14/17 Aspirin/Acetaminophen/Caffeine [Excedrin Migraine Caplet] 1 each PO PRN Azithromycin [Zithromax 250mg Tablets -] 250 mg PO DAILY #4 tablet 11/14/17 Clonidine HCl 0.2 mg PO QID 11/14/17 Dextroamphetamine/Amphetamine [Adderall 10 mg Tablet] 30 mg PO TID 11/14/17 Lorazepam [Ativan] 4 mg PO TID MDD 3 11/14/17 Acetaminophen 8 Hour 650 mg PO TID PRN 09/06/18 Vital Signs: Vital Signs Temperature 97.8 F 09/06/18 18:24 Pulse Rate 93 H 09/06/18 18:24 Respiratory Rate 20 09/06/18 20:36 Blood Pressure 128/57 L 09/06/18 18:24 O2 Sat by Pulse Oximetry (%) 88 L 09/06/18 18:24 Constitutional: Yes: Well Nourished, No Distress, Calm Eyes: Yes: WNL, Conjunctiva Clear, EOM Intact HENT: Yes: WNL, Atraumatic, Normocephalic Neck: Yes: WNL, Supple, Trachea Midline Respiratory: Yes: WNL, Regular, CTA Bilaterally Gastrointestinal: Yes: WNL, Normal Bowel Sounds Renal/: Yes: WNL Cardiovascular: Yes: WNL, Regular Rate and Rhythm Musculoskeletal: Yes: WNL Extremities: Yes: WNL Integumentary: Yes: WNL Neurological: Yes: WNL, Alert, Oriented ...Motor Strength: WNL Psychiatric: Yes: WNL, Alert, Oriented - Other Data Labs, Other Data: CBC, BMP 09/06/18 01:26 09/06/18 13:54 Troponin, BNP 09/06/18 09/06/18 13:54 13:54 Troponin I 0.04 B-Natriuretic Peptide 2157.3 H Troponin, BNP 09/06/18 09/06/18 13:54 13:54 Troponin I 0.04 B-Natriuretic Peptide 2157.3 H Imaging - Results EKG: Image Reviewed Assessment/Plan Problems (1) Hemoptysis Assessment/Plan: Pt says he noticed blood at times in phlegm. Code(s): R04.2 - HEMOPTYSIS (2) Pneumonia Code(s): J18.9 - PNEUMONIA, UNSPECIFIED ORGANISM Qualifiers: (3) COPD with acute bronchitis Assessment/Plan: f/u with military analyst. Code(s): J44.0 - CHRONIC OBSTRUCTIVE PULMON DISEASE W ACUTE LOWER RESP INFCT (4) Head injury Code(s): S09.90XA - UNSPECIFIED INJURY OF HEAD, INITIAL ENCOUNTER Qualifiers: Encounter type: initial encounter Qualified Code(s): S09.90XA - Unspecified injury of head, initial encounter (5) Adult ADHD (attention deficit hyperactivity disorder) Code(s): F90.0 - ATTN-DEFCT HYPERACTIVITY DISORDER, PREDOM INATTENTIVE TYPE (6) Bronchiectasis Assessment/Plan: by hx; increasing bilateral interstitial changes on CTs f/u with military analyst. Code(s): J47.9 - BRONCHIECTASIS, UNCOMPLICATED (7) Hyperlipidemia Assessment/Plan: f/u lipid profile; presently on atorvastatin 20 mg daily. Code(s): E78.5 - HYPERLIPIDEMIA, UNSPECIFIED (8) Hypertension Assessment/Plan: on clonidine and amlodipine. F/u ECHO for LVF, wall thickness, cavity sizes, valve status. Code(s): I10 - ESSENTIAL (PRIMARY) HYPERTENSION (9) [place] cardiac risk >20% in next 10 years Assessment/Plan: Pt denies ever having had a stress test or coronary angiogram. Coronary artery evaluation when stable (may be done as outpatient). Code(s): Z91.89 - OTH PERSONAL RISK FACTORS, NOT ELSEWHERE CLASSIFIED (10) CHF (congestive heart failure) Assessment/Plan: elevated BNP; continued dyspnea and cough. F/u ECHO for LVEF. Code(s): I50.9 - HEART FAILURE, UNSPECIFIED (11) Hiatal hernia Assessment/Plan: moderate (CT scan). Code(s): K44.9 - DIAPHRAGMATIC HERNIA WITHOUT OBSTRUCTION OR GANGRENE
[2018-09-06] MEDS: BUDESONIDE/FORMETEROL FUMARATE 160/4.5 mcg INHALER IH SCH (22:37)
[2018-09-06] MEDS: traMADol HCL 50 MG TABLET PO PRN (23:09)
[2018-09-06] MEDS ORDERED: ALPRAZolam 0.25 MG TABLET PO PRN (23:16)
[2018-09-07] MEDS ORDERED: LORazepam 0.5 MG TABLET PO PRN (01:19)
[2018-09-07] MEDS ORDERED: TEMAZEPAM 15 MG CAPSULE PO SCH (01:30)
[2018-09-07] MEDS ORDERED: LORazepam 0.5 MG TABLET PO ONE (01:36)
[2018-09-07] MEDS: methylPREDNISolone NA SUCC 40 MG/1 ML VIAL IVPUSH SCH ×4 (02:20→22:04)
[2018-09-07] MEDS: ACETAMINOPHEN 325 MG TABLET (FP) PO PRN ×3 (05:45→18:40)
[2018-09-07] MEDS: traMADol HCL 50 MG TABLET PO PRN (06:47)
[2018-09-07 08:03] LABS: BASO % 0.1 % (0-2.0); HEMATOCRIT 34.4 % (35.4-49); LYMPH % 9.5 % (8-40); MCH 27.1 pg (25.7-33.7); MEAN CELL VOLUME 84.6 fl (80-96); MEAN PLT VOLUME 9.2 fl (7.5-11.1); MONO % 1.6 % (3.8-10.2); NEUT % 88.8 % (42.8-82.8); PLATELET COUNT 257 K/MM3 (134-434); RBC 4.07 M/mm3 (4.00-5.60); RDW 13.3 % (11.9-15.9); WHITE BLOOD COUNT 8.6 K/mm3 (4.0-10.8)
[2018-09-07 08:11] LABS: ANION GAP 9 MMOL/L (8-16); BLOOD UREA NITROGEN 17 mg/dl (7-18); CALCIUM 8.3 mg/dl (8.5-10); CHLORIDE 106 mmol/L (98-107); CO2 22 mmol/L (21-32); CREATININE 0.9 mg/dl (0.55-1.3); GLUCOSE,RANDOM 153 mg/dl (74-106); MAGNESIUM 2.1 mg/dL (1.8-2.4); PHOSPHOROUS 2.7 mg/dl (2.5-4.9); POTASSIUM 3.9 mmol/L (3.5-5.1); SODIUM 137 mmol/L (136-145)
[2018-09-07] MEDS ORDERED: PT OWN MED DRAWER 7, Y5N ONE (09:13)
[2018-09-07] MEDS: cloNIDine HCL 0.1 MG TABLET PO SCH ×4 (09:30→22:08)
[2018-09-07] MEDS: guaiFENesin/D-METHORPHAN HB 10 ML UNIT-DOSE CUPS PO PRN ×3 (09:30→22:41)
[2018-09-07] MEDS: BUDESONIDE/FORMETEROL FUMARATE 160/4.5 mcg INHALER IH SCH ×3 (09:31→22:27)
[2018-09-07] MEDS: ALBUTEROL SO4 0.083% IH SOL 2.5 MG/3 ML VIAL.NEB. NEB PRN (09:52)
[2018-09-07] MEDS ORDERED: PATIENT'S OWN MEDICATION (NON-FORMULARY) (Simvastatin [Simvastatin] 40 MG) PO SCH (10:00)
[2018-09-07] MEDS ORDERED: amLODIPine BESYLATE 10 MG TABLET (FP) PO SCH (10:00)
[2018-09-07] MEDS ORDERED: ENOXAPARIN NA (PORCINE) 40 MG/0.4 ML DISP.SYRIN SQ SCH (10:00)
[2018-09-07] MEDS ORDERED: AZITHROMYCIN IVPB 250 MG in DEXTROSE 5%-WATER - 250 ML IVPB SCH (10:00)
[2018-09-07] MEDS ORDERED: ASPIRIN 81 MG CHEWABLE TABLETS PO SCH (10:00)
--- NOTE | 2018-09-07 10:09 | PN ---
Progress Note (short form) - Note Progress Note: PULMONARY CONSULTATION DICTATED 09/07/18 IMP PNEUMONIA SUPERIMPOSED ON CHRONIC LUNG DISEASE ASTHMA/BRONCHIECTASIS/ILD SUPPLEMENTAL O2 HEMOPTYSIS TRAUMATIC BRAIN INJURY HTN HLD ATTENTION DEFICIT DISORDER PLAN IV ABX INHALED BROCHODILATORS STEROIDS QUANTIFY HEMOPTYSIS CULTURES LEGIONELLA URINARY ANTIGEN F/U CHEST X-RAYS DR SEO Problem List - Problems (1) Hemoptysis Code(s): R04.2 - HEMOPTYSIS (2) Pneumonia Code(s): J18.9 - PNEUMONIA, UNSPECIFIED ORGANISM Qualifiers: (3) Productive cough Code(s): R05 - COUGH (4) SOB (shortness of breath) Code(s): R06.02 - SHORTNESS OF BREATH (5) Head injury Code(s): S09.90XA - UNSPECIFIED INJURY OF HEAD, INITIAL ENCOUNTER Qualifiers: Encounter type: initial encounter Qualified Code(s): S09.90XA - Unspecified injury of head, initial encounter (6) Adult ADHD (attention deficit hyperactivity disorder) Code(s): F90.0 - ATTN-DEFCT HYPERACTIVITY DISORDER, PREDOM INATTENTIVE TYPE (7) Bronchiectasis Code(s): J47.9 - BRONCHIECTASIS, UNCOMPLICATED (8) Hyperlipidemia Code(s): E78.5 - HYPERLIPIDEMIA, UNSPECIFIED (9) Hypertension Code(s): I10 - ESSENTIAL (PRIMARY) HYPERTENSION
--- NOTE | 2018-09-07 11:11 | PN ---
Progress Note, Physician Chief Complaint: Pt A&Ox3; still with paroxysms of cough, dyspnea. History of Present Illness: This is a 67 year old white male with PMHx traumatic brain injury, attention deficit disorder(on adderal), asthma/bronchiectasis (on albuterol and advair), hypertension (on amlodipine) and hyperlipidemia who presents with 2 days of SOB , productive cough of yellow sputum, lightheadedness and anxiety. Pt also reported he had 1 episode of bloody sputum and fever with temperature maximum of 102. He denied chest pain, headache, focal weakness/numbness, abdominal pain ,nausea, vomiting or diarrhea. In the ER he had wheezing and crackles. He was treated with duonebulizers , IV antibiotics with one dosage of IV Azithromycin 500 mg , ceftriaxone 1 gm and methylprednisolone 125 mg. He had a normal ABG, initially was placed on a bipap machine and weaned off. Labs notable for a normal WBC and lactic acid level, BNP 2157. Influenzae A and B were negative. He was admitted for further medical management. Pt denies cigarettes. 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 - Current Medication List Current Medications: Active Medications Acetaminophen (Tylenol -) 650 mg PO Q8H PRN PRN Reason: FEVER Last Admin: 09/07/18 05:45 Dose: 650 mg Albuterol Sulfate (Ventolin 0.083% Nebulizer Soln -) 1 amp NEB Q6H PRN PRN Reason: SHORT OF BREATH/WHEEZING Last Admin: 09/07/18 09:52 Dose: 1 amp Amlodipine Besylate (Norvasc -) 10 mg PO DAILY [facility] Last Admin: 09/07/18 09:30 Dose: 10 mg Aspirin (Asa -) 81 mg PO DAILY [facility] Last Admin: 09/07/18 09:30 Dose: 81 mg Atorvastatin Calcium (Lipitor -) 20 mg PO HS [facility] Last Admin: 09/06/18 21:55 Dose: 20 mg Budesonide/Formoterol Fumarate (Symbicort 160/4.5mcg -) 2 puff IH BID [facility] Last Admin: 09/07/18 09:31 Dose: 2 puff Clonidine (Catapres -) 0.2 mg PO QID [facility] Last Admin: 09/07/18 09:30 Dose: 0.2 mg Doxepin HCl (Sinequan -) 75 mg PO HS [facility] Last Admin: 09/06/18 22:38 Dose: 75 mg Enoxaparin Sodium (Lovenox -) 40 mg SQ DAILY [facility] Last Admin: 09/07/18 09:31 Dose: 40 mg Guaifenesin (Robitussin Dm -) 10 ml PO Q4H PRN PRN Reason: COUGH Last Admin: 09/07/18 09:30 Dose: 10 ml Azithromycin 250 mg/ Dextrose 250 mls @ 250 mls/hr IVPB DAILY [facility] Last Admin: 09/07/18 09:31 Dose: 250 mls/hr Lorazepam (Ativan -) 1 mg PO Q8H PRN PRN Reason: ANXIETY Methylprednisolone Sodium Succinate (Solu-Medrol -) 60 mg IVPUSH Q6H-IV [facility] Last Admin: 09/07/18 09:30 Dose: 60 mg Tramadol HCl (Ultram -) 50 mg PO Q8H PRN PRN Reason: BACK PAIN Last Admin: 09/07/18 06:47 Dose: 50 mg - Objective Vital Signs: Vital Signs Temperature 98.5 F 09/07/18 09:26 Pulse Rate 97 H 09/07/18 09:26 Respiratory Rate 20 09/07/18 09:26 Blood Pressure 137/64 09/07/18 09:26 O2 Sat by Pulse Oximetry (%) 93 L 09/07/18 06:00 Constitutional: Yes: Well Nourished Eyes: Yes: WNL HENT: Yes: WNL Neck: Yes: WNL Cardiovascular: Yes: Regular Rate and Rhythm, S1, S2 Respiratory: Yes: Diminished Gastrointestinal: Yes: Soft ...Rectal Exam: Yes: Deferred Genitourinary: Yes: Anuria Breast(s): Yes: WNL Musculoskeletal: Yes: WNL Extremities: Yes: WNL Edema: No Peripheral Pulses WNL: Yes Integumentary: Yes: Venous Stasis Changes Neurological: Yes: WNL Psychiatric: Yes: WNL Labs: CBC, BMP 09/07/18 07:15 09/07/18 07:15 Abnormal Lab Results 09/07/18 09/07/18 07:15 07:15 Hgb 11.0 L Hct 34.4 L Neutrophils % 88.8 H Monocytes % 1.6 L Random Glucose 153 H Calcium 8.3 L - ....Imaging Chest X-ray: Image Reviewed (IS infiltrates) Cat Scan: Image Reviewed (more extensive bilateral interstitial changes) Ultrasound: Pending EKG: Image Reviewed Problem List - Problems (1) Hemoptysis Assessment/Plan: Pt says he noticed blood at times in phlegm. Code(s): R04.2 - HEMOPTYSIS (2) Pneumonia Code(s): J18.9 - PNEUMONIA, UNSPECIFIED ORGANISM Qualifiers: (3) COPD with acute bronchitis Assessment/Plan: f/u with psychic reader. Code(s): J44.0 - CHRONIC OBSTRUCTIVE PULMON DISEASE W ACUTE LOWER RESP INFCT (4) Head injury Code(s): S09.90XA - UNSPECIFIED INJURY OF HEAD, INITIAL ENCOUNTER Qualifiers: Encounter type: initial encounter Qualified Code(s): S09.90XA - Unspecified injury of head, initial encounter (5) Adult ADHD (attention deficit hyperactivity disorder) Code(s): F90.0 - ATTN-DEFCT HYPERACTIVITY DISORDER, PREDOM INATTENTIVE TYPE (6) Bronchiectasis Assessment/Plan: by hx; increasing bilateral interstitial changes on CTs f/u with psychic reader. Code(s): J47.9 - BRONCHIECTASIS, UNCOMPLICATED (7) Hyperlipidemia Assessment/Plan: f/u lipid profile; presently on atorvastatin 20 mg daily. Code(s): E78.5 - HYPERLIPIDEMIA, UNSPECIFIED (8) Hypertension Assessment/Plan: on clonidine and amlodipine. F/u ECHO for LVF, wall thickness, cavity sizes, valve status. Code(s): I10 - ESSENTIAL (PRIMARY) HYPERTENSION (9) [place] cardiac risk >20% in next 10 years Assessment/Plan: Pt denies ever having had a stress test or coronary angiogram. Coronary artery evaluation when stable (may be done as outpatient). Code(s): Z91.89 - OTH PERSONAL RISK FACTORS, NOT ELSEWHERE CLASSIFIED (10) CHF (congestive heart failure) Assessment/Plan: elevated BNP; continued dyspnea and cough. F/u ECHO for LVEF. Code(s): I50.9 - HEART FAILURE, UNSPECIFIED (11) Hiatal hernia Assessment/Plan: moderate (CT scan). Code(s): K44.9 - DIAPHRAGMATIC HERNIA WITHOUT OBSTRUCTION OR GANGRENE
--- NOTE | 2018-09-07 11:20 | PN ---
"Physical Exam: SUBJECTIVE: Patient seen and examined at bedside. Receiving nebulizer, feels SOB. OBJECTIVE: Vital Signs Period Temp Pulse Resp BP Sys/Walter Pulse Ox Last 24 Hr 97.8 F-101 F 85-110 19-40 102-160/49-86 87-100 GENERAL: The patient is awake, alert, and fully oriented. LUNGS: Coarse breath sounds, scattered expiratory wheezing HEART: Regular rate and rhythm, S1, S2 ABDOMEN: Soft, nontender, nondistended EXTREMITIES: 2+ pulses, warm, well-perfused, no edema. NEUROLOGICAL: Cranial nerves II through XII grossly intact. Normal speech, gait not observed. Laboratory Results - last 24 hr 09/06/18 09/06/18 09/06/18 01:26 01:45 13:54 WBC 9.8 RBC 4.38 Hgb 11.8 Hct 37.0 MCV 84.4 MCH 27.0 MCHC 32.0 RDW 13.3 Plt Count 272 MPV 9.3 Absolute Neuts (auto) 7.9 Neutrophils % 80.8 Lymphocytes % 9.8 D Monocytes % 7.8 Eosinophils % 1.2 Basophils % 0.4 Anticoagulation Therapy Puncture Site ABG pH ABG pCO2 at Pt Temp ABG pO2 at Pt Temp ABG HCO3 ABG O2 Sat (Measured) ABG O2 Content ABG Base Excess Umer Test O2 Delivery Device Oxygen Flow Rate Vent Mode Vent Rate Mechanical Rate Pressure Support Vent Sodium 138 Potassium 3.8 Chloride 105 Carbon Dioxide 21 Anion Gap 12 BUN 12 Creatinine 1.0 Creat Clearance w eGFR > 60 Random Glucose 120 H Lactic Acid Calcium 8.7 Phosphorus Magnesium 2.1 Total Bilirubin 0.9 AST 53 H ALT 44 Alkaline Phosphatase 73 Troponin I B-Natriuretic Peptide Total Protein 7.1 Albumin 3.4 Urine Color Urine Appearance Urine pH Ur Specific Leslie Urine Protein Urine Glucose (UA) Urine Ketones Urine Blood Urine Nitrite Urine Bilirubin Urine Urobilinogen Ur Leukocyte Esterase Influenza A (Rapid) Influenza B (Rapid) 09/06/18 09/06/18 09/06/18 13:54 13:54 14:04 WBC RBC Hgb Hct MCV MCH MCHC RDW Plt Count MPV Absolute Neuts (auto) Neutrophils % Lymphocytes % Monocytes % Eosinophils % Basophils % Anticoagulation Therapy Puncture Site ABG pH ABG pCO2 at Pt Temp ABG pO2 at Pt Temp ABG HCO3 ABG O2 Sat (Measured) ABG O2 Content ABG Base Excess Umer Test O2 Delivery Device Oxygen Flow Rate Vent Mode Vent Rate Mechanical Rate Pressure Support Vent Sodium Potassium Chloride Carbon Dioxide Anion Gap BUN Creatinine Creat Clearance w eGFR Random Glucose Lactic Acid 1.2 Calcium Phosphorus Magnesium Total Bilirubin AST ALT Alkaline Phosphatase Troponin I 0.04 B-Natriuretic Peptide 2157.3 H Total Protein Albumin Urine Color Urine Appearance Urine pH Ur Specific Leslie Urine Protein Urine Glucose (UA) Urine Ketones Urine Blood Urine Nitrite Urine Bilirubin Urine Urobilinogen Ur Leukocyte Esterase Influenza A (Rapid) Influenza B (Rapid) 09/06/18 09/06/18 09/06/18 14:20 14:20 16:02 WBC RBC Hgb Hct MCV MCH MCHC RDW Plt Count MPV Absolute Neuts (auto) Neutrophils % Lymphocytes % Monocytes % Eosinophils % Basophils % Anticoagulation Therapy No Result Required. Puncture Site No Result Required. ABG pH 7.47 H ABG pCO2 at Pt Temp 29.2 L ABG pO2 at Pt Temp 184.0 H* ABG HCO3 20.7 L ABG O2 Sat (Measured) 99.2 H ABG O2 Content 15.3 ABG Base Excess -1.8 Umer Test No Result Required. O2 Delivery Device No Result Required. Oxygen Flow Rate No Result Required. Vent Mode No Result Required. Vent Rate No Result Required. Mechanical Rate No Result Required. Pressure Support Vent No Result Required. Sodium Potassium Chloride Carbon Dioxide Anion Gap BUN Creatinine Creat Clearance w eGFR Random Glucose Lactic Acid Calcium Phosphorus Magnesium Total Bilirubin AST ALT Alkaline Phosphatase Troponin I B-Natriuretic Peptide Total Protein Albumin Urine Color Yellow Urine Appearance Clear Urine pH 8.5 H D Ur Specific Leslie 1.020 Urine Protein Negative Urine Glucose (UA) Negative Urine Ketones Negative Urine Blood Negative Urine Nitrite Negative Urine Bilirubin Negative Urine Urobilinogen 0.2 Ur Leukocyte Esterase Negative Influenza A (Rapid) Negative Influenza B (Rapid) Negative 09/06/18 09/07/18 09/07/18 18:15 07:15 07:15 WBC 8.6 RBC 4.07 Hgb 11.0 L Hct 34.4 L MCV 84.6 MCH 27.1 MCHC 32.0 RDW 13.3 Plt Count 257 MPV 9.2 Absolute Neuts (auto) 7.7 Neutrophils % 88.8 H Lymphocytes % 9.5 Monocytes % 1.6 L Eosinophils % 0.0 D Basophils % 0.1 Anticoagulation Therapy Puncture Site ABG pH ABG pCO2 at Pt Temp ABG pO2 at Pt Temp ABG HCO3 ABG O2 Sat (Measured) ABG O2 Content ABG Base Excess Umer Test O2 Delivery Device Oxygen Flow Rate Vent Mode Vent Rate Mechanical Rate Pressure Support Vent Sodium 137 Potassium 3.9 Chloride 106 Carbon Dioxide 22 Anion Gap 9 BUN 17 Creatinine 0.9 Creat Clearance w eGFR > 60 Random Glucose 153 H Lactic Acid 1.1 Calcium 8.3 L Phosphorus 2.7 Magnesium 2.1 Total Bilirubin AST ALT Alkaline Phosphatase Troponin I B-Natriuretic Peptide Total Protein Albumin Urine Color Urine Appearance Urine pH Ur Specific Leslie Urine Protein Urine Glucose (UA) Urine Ketones Urine Blood Urine Nitrite Urine Bilirubin Urine Urobilinogen Ur Leukocyte Esterase Influenza A (Rapid) Influenza B (Rapid) Active Medications Generic Name Dose Route Start Last Admin Trade Name Freq PRN Reason Stop Dose Admin Acetaminophen 650 mg 09/06/18 21:32 09/07/18 05:45 Tylenol - PO 650 mg Q8H PRN Administration FEVER Albuterol Sulfate 1 amp 09/06/18 20:02 09/07/18 09:52 Ventolin 0.083% Nebulizer Soln - NEB 1 amp Q6H PRN Administration SHORT OF BREATH/WHEEZING Amlodipine Besylate 10 mg 09/07/18 10:00 09/07/18 09:30 Norvasc - PO 10 mg DAILY [facility] Administration Aspirin 81 mg 09/07/18 10:00 09/07/18 09:30 Asa - PO 81 mg DAILY [facility] Administration Atorvastatin Calcium 20 mg 09/06/18 22:00 09/06/18 21:55 Lipitor - PO 20 mg HS [facility] Administration Budesonide/Formoterol Fumarate 2 puff 09/06/18 22:00 09/07/18 09:31 Symbicort 160/4.5mcg - IH 2 puff BID [facility] Administration Clonidine 0.2 mg 09/06/18 22:00 09/07/18 09:30 Catapres - PO 0.2 mg QID [facility] Administration Doxepin HCl 75 mg 09/06/18 22:00 09/06/18 22:38 Sinequan - PO 75 mg HS [facility] Administration Enoxaparin Sodium 40 mg 09/07/18 10:00 09/07/18 09:31 Lovenox - SQ 40 mg DAILY [facility] Administration Guaifenesin 10 ml 09/07/18 08:42 09/07/18 09:30 Robitussin Dm - PO 10 ml Q4H PRN Administration COUGH Azithromycin 250 mg/ Dextrose 250 mls @ 250 mls/hr 09/07/18 10:00 09/07/18 09 :31 IVPB 250 mls/hr DAILY [facility] Administration Lorazepam 1 mg 09/07/18 01:19 Ativan - PO Q8H PRN ANXIETY Methylprednisolone Sodium Succinate 60 mg 09/06/18 21:00 09/07/18 09:30 Solu-Medrol - IVPUSH 60 mg Q6H-IV [facility] Administration Tramadol HCl 50 mg 09/06/18 21:34 09/07/18 06:47 Ultram - PO 50 mg Q8H PRN Administration BACK PAIN ASSESSMENT/PLAN 68 year-old male with a PMH significant for HTN, HLD, TBI, ADD, interstitial lung disease. Admitted for pneumonia. Sepsis secondary to community-acquired pneumonia --Tm 101.0, p110, RR 40, CXR shows interstitial infiltrates --tachypneic --continue azithro (day #2), ceftriaxone (day #2) --IV steroids --duonebs QID scheduled; Symbicort --quantify hemoptysis; collect all sputum --pulmonary following Hypertension --BP stable --continue clonidine, amlodipine Hyperlipidemia --continue Lipitor Traumatic brain injury ADD --continue doxepin, lorazepam The Drug Utilization Report below displays all of the controlled substance prescriptions, if any, that your patient has filled in the last twelve months. The information displayed on this report is compiled from pharmacy submissions to the Department, and accurately reflects the information as submitted by the pharmacies. This report was requested by: Krystina Mobley | Reference #: [id number] Others' Prescriptions Patient Name: Fareed Cowart Date: 1950 Address: [address] [place] [address] [place] [address] Sex: Male Rx Written Rx Dispensed Drug Quantity Days Supply Prescriber Name 05/04/2018 09/01/2018 tramadol hcl 50 mg tablet 69 23 JuanAndi jha 05/04/2018 08/11/2018 tramadol hcl 50 mg tablet 69 23 JuanAndi jones 05/04/2018 07/31/2018 tramadol hcl 50 mg tablet 21 7 Juan, Andi 05/04/2018 07/01/2018 tramadol hcl 50 mg tablet 90 30 Juan, Andi 05/04/2018 06/03/2018 tramadol hcl 50 mg tablet 90 30 Juan, Andi 05/04/2018 05/07/2018 tramadol hcl 50 mg tablet 90 30 Juan, Andi 03/31/2018 04/19/2018 dextroamp-amphetamin 20 mg tab 90 30 Davidson, Wilfredo Latham MD 03/31/2018 04/19/2018 dextroamp-amphetamin 20 mg tab 30 30 Davidson, Wilfredo Latham MD 03/02/2018 03/20/2018 dextroamp-amphetamin 20 mg tab 90 30 Davidson, Wilfredo Latham MD 03/02/2018 03/20/2018 dextroamp-amphetamin 20 mg tab 30 30 Davidson, Wilfredo Latham MD 03/02/2018 03/16/2018 lorazepam 1 mg tablet 60 30 Davidson, Wilfredo Latham MD 03/02/2018 03/16/2018 lorazepam 2 mg tablet 150 30 Davidson, Wilfredo Latham MD 03/02/2018 03/16/2018 lorazepam 2 mg tablet 30 30 Davidson, Wilfredo Latham MD 03/02/2018 03/06/2018 dextroamp-amphetamin 30 mg tab 30 30 Davidson, Wilfredo Latham MD 03/02/2018 03/06/2018 dextroamp-amphetamin 10 mg tab 90 30 Davidson, Wilfredo Latham MD 03/02/2018 03/06/2018 dextroamp-amphetamin 30 mg tab 60 30 Davidson, Wilfredo Latham MD 02/11/2018 03/02/2018 dextroamp-amphet er 30 mg cap 30 30 Davidson, Wilfredo Latham MD 02/11/2018 02/16/2018 lorazepam 2 mg tablet 150 30 Davidson, Wilfredo Latham MD 02/11/2018 02/16/2018 lorazepam 1 mg tablet 60 30 Davidson, Wilfredo Latham MD 02/11/2018 02/16/2018 lorazepam 2 mg tablet 30 30 Davidson, Wilfredo Latham MD 01/18/2018 01/19/2018 dextroamp-amphetamin 30 mg tab 60 30 Davidson, Edrobby Latham MD 01/18/2018 01/19/2018 lorazepam 2 mg tablet 150 30 Davidson, Wilfredo Latham MD 01/18/2018 01/19/2018 lorazepam 1 mg tablet 60 30 Davidson, Wilfredo Latham MD 01/18/2018 01/19/2018 dextroamp-amphetamin 30 mg tab 30 30 Davidson, Wilfredo Latham MD 01/18/2018 01/19/2018 lorazepam 2 mg tablet 30 30 Davidson, Edrobby Latham MD 12/22/2017 01/08/2018 dextroamp-amphetamin 20 mg tab 90 30 Davidson, Wilfredo Latham MD 12/22/2017 01/08/2018 dextroamp-amphetamin 10 mg tab 90 30 Davidson, Wilfredo Latham MD 12/22/2017 01/08/2018 dextroamp-amphetamin 20 mg tab 30 30 Davidson, Wilfredo Latham MD 12/22/2017 01/06/2018 dextroamp-amphet er 30 mg cap 30 30 Davidson, Wilfredo Latham MD 12/22/2017 12/23/2017 dextroamp-amphetamin 15 mg tab 120 30 Davidson, Wilfredo Latham MD 12/22/2017 12/23/2017 lorazepam 2 mg tablet 150 30 Davidson, Wilfredo Latham MD 12/22/2017 12/23/2017 lorazepam 1 mg tablet 60 30 Davidson, Wilfredo Latham MD 12/22/2017 12/23/2017 dextroamp-amphetamin 30 mg tab 60 30 Davidson, Wilfredo Latham MD 12/22/2017 12/23/2017 lorazepam 2 mg tablet 30 30 Davidson, Edrobby Latham MD 12/22/2017 12/23/2017 dextroamp-amphetamin 30 mg tab 30 30 Davidson, Wilfredo Latham MD 11/19/2017 12/04/2017 dextroamp-amphetamin 20 mg tab 90 30 Davidson, Wilfredo Latham MD 11/19/2017 12/04/2017 dextroamp-amphetamin 10 mg tab 90 30 Davidson, Wilfredo Latham MD 11/19/2017 12/04/2017 dextroamp-amphetamin 20 mg tab 30 8 Davidson, Wilfredo Latham MD 10/30/2017 11/04/2017 dextroamp-amphetamin 10 mg tab 90 30 Davidson, Wilfredo Latham MD 10/30/2017 11/04/2017 dextroamp-amphetamin 20 mg tab 120 30 Davidson, Wilfredo Latham MD 10/20/2017 10/31/2017 dextroamp-amphetamin 15 mg tab 120 30 Davidson, Wilfredo Latham MD 10/20/2017 10/31/2017 lorazepam 2 mg tablet 150 30 Davidson, Wilfredo Latham MD 10/20/2017 10/31/2017 lorazepam 1 mg tablet 60 30 Davidson, Wilfredo Latham MD 10/20/2017 10/31/2017 lorazepam 2 mg tablet 30 30 Davidson, Wilfredo Latham MD 10/20/2017 10/23/2017 dextroamp-amphet er 30 mg cap 30 30 Davidson, Wilfredo Latham MD 10/02/2017 10/07/2017 dextroamp-amphetamin 10 mg tab 90 30 Davidson, Wilfredo Latham MD 10/02/2017 10/07/2017 dextroamp-amphetamin 20 mg tab 90 30 Davidson, Wilfredo Latham MD 10/02/2017 10/07/2017 dextroamp-amphetamin 20 mg tab 30 30 Davidson, Wilfredo Latham MD 09/25/2017 09/26/2017 dextroamp-amphet er 30 mg cap 30 30 Davidson, Wilfredo Latham MD 09/08/2017 09/22/2017 dextroamp-amphetamin 20 mg tab 120 30 Davidson, Wilfredo Latham MD 09/08/2017 09/08/2017 dextroamp-amphetamin 10 mg tab 90 30 Davidson, Wilfredo Latham MD 09/08/2017 09/08/2017 lorazepam 2 mg tablet 150 30 Davidson, Wilfredo Latham MD 09/08/2017 09/08/2017 lorazepam 1 mg tablet 60 30 Davidson, Wilfredo Latham MD 09/08/2017 09/08/2017 lorazepam 2 mg tablet 30 30 Davidson, Wilfredo Latham MD Patient Name: Fareed Cowart Date: 1950 Address: [address] [place] [address] [place] [address] Sex: Male Rx Written Rx Dispensed Drug Quantity Days Supply Prescriber Name 06/08/2018 06/19/2018 dextroamp-amphetamin 15 mg tab 120 30 Davidson, Wilfredo Latham MD 05/06/2018 05/24/2018 lorazepam 1 mg tablet 60 30 Davidson, Wilfredo Latham MD 05/06/2018 05/20/2018 dextroamp-amphetamin 15 mg tab 120 30 Davidson, Wilfredo Latham MD 05/06/2018 05/12/2018 lorazepam 2 mg tablet 90 30 Davidson, Wilfredo Latham MD 05/06/2018 05/07/2018 dextroamp-amphetamin 30 mg tab 90 30 Davidson, Wilfredo Latham MD 01/01/2018 01/01/2018 acetaminophen-cod #3 tablet 20 3 Hugh Spaulding (DDS) 09/16/2017 12/21/2017 tramadol hcl 50 mg tablet 90 30 Juan, Andi DO 09/16/2017 11/24/2017 tramadol hcl 50 mg tablet 90 30 Juan, Andi DO 10/22/2017 11/01/2017 dextroamp-amphetamin 20 mg tab 17 8 Outon, Richy 09/16/2017 10/27/2017 tramadol hcl 50 mg tablet 90 30 Juan, Andi DO 09/16/2017 09/26/2017 tramadol hcl 50 mg tablet 90 30 Juan, Andi DO Patient Name: Fareed Cowart Date: 1950 Address: [address] [place] [address] Sex: Male Rx Written Rx Dispensed Drug Quantity Days Supply Prescriber Name 05/06/2018 06/02/2018 dextroamp-amphetamin 20 mg tab 120 30 Lety, Wilfredo Latahm MD Patient Name: Fareed Rachel Date: 1950 Address: [address] [place] [address] [place] [address] Sex: Male Rx Written Rx Dispensed Drug Quantity Days Supply Prescriber Name 02/04/2018 04/03/2018 tramadol hcl 50 mg tablet 90 30 Juan, Andi 02/04/2018 03/04/2018 tramadol hcl 50 mg tablet 90 30 Juan, Andi 02/04/2018 02/04/2018 tramadol hcl 50 mg tablet 90 30 Juan, Andi DO * - Drugs marked with an asterisk are compound drugs. If the compound drug is made up of more than one controlled substance, then each controlled substance will be a separate row in the table. Visit type - Emergency Visit Emergency Visit: Yes ED Registration Date: 09/06/18 Care time: The patient presented to the Emergency Department on the above date and was hospitalized for further evaluation of their emergent condition. - New Patient This patient is new to me today: Yes Date on this admission: 09/07/18 - Critical Care Critical Care patient: No"
[2018-09-07] MEDS ORDERED: CEFTRIAXONE 1 G/50 ML PREMIX 50 ML IVPB SCH (11:45)
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
[2018-09-07] MEDS: ALBUTEROL SO4 0.083% IH SOL 2.5 MG/3 ML VIAL.NEB. NEB SCH ×2 (14:38→18:14)
--- NOTE | 2018-09-07 16:11 | ECHO ---
Name: CHARLES HENDERSON Exam:Adult Echocardiogram Study Date: 09/07/2018 01:02 PM Age: 68 yrs Reason For Study: LEG SWELLING Height: 69 in Weight: 179 lb BSA: 2.0 m2 Doppler Measurements & Calculations MV E max katie: 134.9 cm/sec MV A max katie: 123.2 cm/sec MV dec slope: 1030 cm/sec2 MV E/A: 1.1 TR max katie: 275.3 cm/sec TR max P.2 mmHg Procedure The study was technically limited with all images being suboptimal in quality. Atria Normal left and right atrial size and function. Mitral Valve The mitral valve is grossly normal. There is mild mitral regurgitation. Tricuspid Valve The tricuspid valve is not well visualized, but is grossly normal. Assuming the RA pressure is 10 mmH g. Mildly elevated RA pressure. Aortic Valve The aortic valve is not well visualized. Pericardium/Pleura There is no pericardial effusion. Interpretation Summary Limited study without adequate imaging windows. LV and RV unction are probably normal. Tyrone Greene 09/07/2018 04:10 PM
--- NOTE | 2018-09-07 16:32 | EKG ---
Test Reason : Blood Pressure : / mmHG Vent. Rate : 096 BPM Atrial Rate : 096 BPM P-R Int : 126 ms QRS Dur : 086 ms QT Int : 348 ms P-R-T Axes : 077 025 073 degrees QTc Int : 439 ms POOR DATA QUALITY, INTERPRETATION MAY BE ADVERSELY AFFECTED NORMAL SINUS RHYTHM POSSIBLE LEFT ATRIAL ENLARGEMENT NONSPECIFIC ST ABNORMALITY ABNORMAL ECG WHEN COMPARED WITH ECG OF 14-NOV-2017 18:17, VENT. RATE HAS INCREASED BY 35 BPM BORDERLINE CRITERIA FOR INFERIOR INFARCT ARE NO LONGER PRESENT Confirmed by Tyrone Greene ([id number]) on 09/07/2018 4:32:21 PM Referred By: Confirmed By:Tyrone Greene
[2018-09-07] MEDS ORDERED: ALBUTEROL SO4 0.083% IH SOL 2.5 MG/3 ML VIAL.NEB. NEB PRN (16:40)
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
[2018-09-07 17:25] LABS: CHOLESTEROL 105 mg/dl (50-200); HDL CHOLESTEROL 51 mg/dl (40-60); LDL CHOLESTEROL (ONLY DFH) 38 mg/dl (5-100); TRIGLYCERIDES 78 mg/dl (0-150)
[2018-09-07] MEDS ORDERED: PIPERACILLIN/TAZOB 3.375 GM 3.375 GM in DEXTROSE 5%-WATER - 50 ML IVPB SCH (18:00)
[2018-09-07] MEDS ORDERED: DEXTROSE 5%-WATER - 50 ML IVPB ONE (18:08)
[2018-09-07] MEDS ORDERED: PIPERACILLIN/TAZOBACTAM 3.375 GM VIAL IVPB ONE (18:08)
[2018-09-07] MEDS: ATORVASTATIN CA 20 MG TABLET (FP) PO SCH (22:09)
[2018-09-07] MEDS: LORazepam 1 MG TABLET PO PRN (22:43)
[2018-09-08] MEDS ORDERED: PIPERACILLIN/TAZOBACTAM 3.375 GM VIAL IVPB ONE ×3 (01:24→17:08)
[2018-09-08] MEDS ORDERED: DEXTROSE 5%-WATER - 50 ML IVPB ONE ×3 (01:27→17:08)
[2018-09-08] MEDS: PIPERACILLIN/TAZOB 3.375 GM 3.375 GM in DEXTROSE 5%-WATER - 50 ML IVPB SCH ×3 (01:50→17:12)
[2018-09-08] MEDS: methylPREDNISolone NA SUCC 40 MG/1 ML VIAL IVPUSH SCH ×4 (02:30→21:28)
[2018-09-08] MEDS: ALBUTEROL SO4 0.083% IH SOL 2.5 MG/3 ML VIAL.NEB. NEB PRN (03:28)
[2018-09-08] MEDS: LORazepam 1 MG TABLET PO PRN (05:36)
[2018-09-08] MEDS: ALBUTEROL SO4 0.083% IH SOL 2.5 MG/3 ML VIAL.NEB. NEB SCH ×4 (07:45→20:10)
[2018-09-08] MEDS: cloNIDine HCL 0.1 MG TABLET PO SCH ×3 (09:42→17:11)
[2018-09-08] MEDS: amLODIPine BESYLATE 10 MG TABLET (FP) PO SCH (09:43)
[2018-09-08] MEDS: ASPIRIN 81 MG CHEWABLE TABLETS PO SCH (09:43)
[2018-09-08] MEDS: ENOXAPARIN NA (PORCINE) 40 MG/0.4 ML DISP.SYRIN SQ SCH (09:43)
[2018-09-08] MEDS: BUDESONIDE/FORMETEROL FUMARATE 160/4.5 mcg INHALER IH SCH (09:44)
[2018-09-08] MEDS: AZITHROMYCIN IVPB 250 MG in DEXTROSE 5%-WATER - 250 ML IVPB SCH (10:39)
[2018-09-08 11:09] LABS: HEMOGLOBIN 10.6 GM/dL (11.7-16.9); MCH 27.3 pg (25.7-33.7); MEAN CELL VOLUME 82.9 fl (80-96); MEAN PLT VOLUME 8.6 fl (7.5-11.1); PLATELET COUNT 293 K/MM3 (134-434); RBC 3.86 M/mm3 (4.00-5.60); WHITE BLOOD COUNT 20.7 K/mm3 (4.0-10.0)
[2018-09-08 11:34] LABS: ARTERIAL BLD GAS O2 SATURATION 97.9 % (90-98.9); ARTERIAL BLOOD GAS BASE EXCESS -0.9 meq/l (-2-2); ARTERIAL BLOOD GAS pH 7.46 (7.35-7.45)
[2018-09-08 11:41] LABS: ALLENS TEST POSITIVE
[2018-09-08 11:44] LABS: ALBUMIN 2.5 g/dl (3.4-5.0); ALK PHOS 68 U/L (45-117); ANION GAP 10 MMOL/L (8-16); BILIRUBIN,TOTAL 0.4 mg/dL (0.2-1); BLOOD UREA NITROGEN 21 mg/dL (7-18); CALCIUM 8.2 mg/dL (8.5-10.1); CHLORIDE 108 mmol/L (98-107); CO2 23 mmol/L (21-32); CREATININE 0.9 mg/dL (0.55-1.3); GLUCOSE,RANDOM 195 mg/dL (74-106); MAGNESIUM 2.2 mg/dL (1.8-2.4); PHOSPHOROUS 2.7 mg/dL (2.5-4.9); POTASSIUM 3.6 mmol/L (3.5-5.1); SGOT/AST 51 U/L (15-37); SGPT/ALT 57 U/L (13-61); SODIUM 140 mmol/L (136-145); TOT PROT 6.1 g/dl (6.4-8.2)
--- NOTE | 2018-09-08 12:11 | PN ---
Progress Note, Physician History of Present Illness: 67yo M hx HTN, HL, TBI, asthma/bronchiectasis on albuterol and advair p/w 2 days of SOB, lightheadness, rapid breathing, productive cough of yellow sputum, and anxiety. Pt also states he had 1 episode of blood in his sputum today prompting him to come to the ED. Also reports 1 day of fever with tmax of 102. Denies CP, headache, focal weakness/numbness, abd pain, LE edema, N/V/D. Pt concerned he has PNA. - Current Medication List Current Medications: Active Medications Acetaminophen (Tylenol -) 650 mg PO Q6H PRN PRN Reason: FEVER Albuterol Sulfate (Ventolin 0.083% Nebulizer Soln -) 1 amp NEB Q6H PRN PRN Reason: SHORT OF BREATH/WHEEZING Last Admin: 09/08/18 03:28 Dose: 1 amp Albuterol Sulfate (Ventolin 0.083% Nebulizer Soln -) 1 amp NEB RQID [facility] Last Admin: 09/08/18 07:45 Dose: 1 amp Amlodipine Besylate (Norvasc -) 10 mg PO DAILY [facility] Last Admin: 09/08/18 09:43 Dose: 10 mg Aspirin (Asa -) 81 mg PO DAILY [facility] Last Admin: 09/08/18 09:43 Dose: 81 mg Atorvastatin Calcium (Lipitor -) 20 mg PO HS [facility] Budesonide/Formoterol Fumarate (Symbicort 160/4.5mcg -) 2 puff IH BID [facility] Last Admin: 09/08/18 09:44 Dose: 2 puff Clonidine (Catapres -) 0.2 mg PO QID [facility] Last Admin: 09/08/18 09:42 Dose: 0.2 mg Doxepin HCl (Sinequan -) 75 mg PO HS [facility] Enoxaparin Sodium (Lovenox -) 40 mg SQ DAILY [facility] Last Admin: 09/08/18 09:43 Dose: 40 mg Guaifenesin (Robitussin Dm -) 10 ml PO Q4H PRN PRN Reason: COUGH Last Admin: 09/07/18 22:41 Dose: 10 ml Azithromycin 250 mg/ Dextrose 250 mls @ 250 mls/hr IVPB DAILY [facility] Last Admin: 09/08/18 10:39 Dose: 250 mls/hr Piperacillin Sod/Tazobactam (Sod 3.375 gm/ Dextrose) 50 mls @ 100 mls/hr IVPB Q8H-IV [facility]; Protocol Last Admin: 09/08/18 09:44 Dose: 100 mls/hr Ipratropium [place] (Atrovent 0.02% Nebulizer -) 1 amp NEB Q6H PRN PRN Reason: DYSPEPSIA Stop: 09/15/18 10:39 Lorazepam (Ativan -) 1 mg PO Q8H PRN PRN Reason: ANXIETY Last Admin: 09/08/18 05:36 Dose: 1 mg Methylprednisolone Sodium Succinate (Solu-Medrol -) 60 mg IVPUSH Q6H-IV [facility] Last Admin: 09/08/18 09:43 Dose: 60 mg - Objective Vital Signs: Vital Signs Temperature 97.6 F 09/08/18 07:02 Pulse Rate 94 H 09/08/18 07:02 Respiratory Rate 20 09/08/18 07:02 Blood Pressure 123/64 09/08/18 07:02 O2 Sat by Pulse Oximetry (%) 99 09/08/18 09:00 Eyes: Yes: WNL, Conjunctiva Clear, EOM Intact HENT: Yes: WNL, Atraumatic, Normocephalic Neck: Yes: WNL, Supple, Trachea Midline Cardiovascular: Yes: WNL, Regular Rate and Rhythm Respiratory: Yes: WNL, Regular, CTA Bilaterally Gastrointestinal: Yes: WNL, Normal Bowel Sounds Genitourinary: Yes: WNL Musculoskeletal: Yes: WNL Extremities: Yes: WNL Edema: No Integumentary: Yes: WNL Neurological: Yes: WNL, Alert, Oriented ...Motor Strength: WNL Psychiatric: Yes: WNL Labs: CBC, BMP 09/08/18 10:47 Assessment/Plan - Problems (1) Hemoptysis Assessment/Plan: Pt says he noticed blood at times in phlegm. Code(s): R04.2 - HEMOPTYSIS (2) Pneumonia Code(s): J18.9 - PNEUMONIA, UNSPECIFIED ORGANISM Qualifiers: (3) COPD with acute bronchitis Assessment/Plan: f/u with scheduling clerk. Code(s): J44.0 - CHRONIC OBSTRUCTIVE PULMON DISEASE W ACUTE LOWER RESP INFCT (4) Head injury Code(s): S09.90XA - UNSPECIFIED INJURY OF HEAD, INITIAL ENCOUNTER Qualifiers: Encounter type: initial encounter Qualified Code(s): S09.90XA - Unspecified injury of head, initial encounter (5) Adult ADHD (attention deficit hyperactivity disorder) Code(s): F90.0 - ATTN-DEFCT HYPERACTIVITY DISORDER, PREDOM INATTENTIVE TYPE (6) Bronchiectasis Assessment/Plan: by hx; increasing bilateral interstitial changes on CTs f/u with scheduling clerk. Code(s): J47.9 - BRONCHIECTASIS, UNCOMPLICATED (7) Hyperlipidemia Assessment/Plan: f/u lipid profile; presently on atorvastatin 20 mg daily. Code(s): E78.5 - HYPERLIPIDEMIA, UNSPECIFIED (8) Hypertension Assessment/Plan: on clonidine and amlodipine. F/u ECHO for LVF, wall thickness, cavity sizes, valve status. Code(s): I10 - ESSENTIAL (PRIMARY) HYPERTENSION (9) [place] cardiac risk >20% in next 10 years Assessment/Plan: Pt denies ever having had a stress test or coronary angiogram. Coronary artery evaluation when stable (may be done as outpatient). Code(s): Z91.89 - OTH PERSONAL RISK FACTORS, NOT ELSEWHERE CLASSIFIED (10) CHF (congestive heart failure) Assessment/Plan: elevated BNP; continued dyspnea and cough. F/u ECHO for LVEF. Code(s): I50.9 - HEART FAILURE, UNSPECIFIED (11) Hiatal hernia Assessment/Plan: moderate (CT scan). Code(s): K44.9 - DIAPHRAGMATIC HERNIA WITHOUT OBSTRUCTION OR GANGRENE
--- NOTE | 2018-09-08 12:39 | PN ---
Progress Note, Physician History of Present Illness: patient still very sob on bipap now says now he feels better - Current Medication List Current Medications: Active Medications Acetaminophen (Tylenol -) 650 mg PO Q6H PRN PRN Reason: FEVER Albuterol Sulfate (Ventolin 0.083% Nebulizer Soln -) 1 amp NEB Q6H PRN PRN Reason: SHORT OF BREATH/WHEEZING Last Admin: 09/08/18 03:28 Dose: 1 amp Albuterol Sulfate (Ventolin 0.083% Nebulizer Soln -) 1 amp NEB RQID [facility] Last Admin: 09/08/18 11:50 Dose: 1 amp Amlodipine Besylate (Norvasc -) 10 mg PO DAILY [facility] Last Admin: 09/08/18 09:43 Dose: 10 mg Aspirin (Asa -) 81 mg PO DAILY [facility] Last Admin: 09/08/18 09:43 Dose: 81 mg Atorvastatin Calcium (Lipitor -) 20 mg PO HS [facility] Budesonide/Formoterol Fumarate (Symbicort 160/4.5mcg -) 2 puff IH BID [facility] Last Admin: 09/08/18 09:44 Dose: 2 puff Clonidine (Catapres -) 0.2 mg PO QID [facility] Last Admin: 09/08/18 09:42 Dose: 0.2 mg Doxepin HCl (Sinequan -) 75 mg PO HS [facility] Enoxaparin Sodium (Lovenox -) 40 mg SQ DAILY [facility] Last Admin: 09/08/18 09:43 Dose: 40 mg Guaifenesin (Robitussin Dm -) 10 ml PO Q4H PRN PRN Reason: COUGH Last Admin: 09/07/18 22:41 Dose: 10 ml Azithromycin 250 mg/ Dextrose 250 mls @ 250 mls/hr IVPB DAILY [facility] Last Admin: 09/08/18 10:39 Dose: 250 mls/hr Piperacillin Sod/Tazobactam (Sod 3.375 gm/ Dextrose) 50 mls @ 100 mls/hr IVPB Q8H-IV [facility]; Protocol Last Admin: 09/08/18 09:44 Dose: 100 mls/hr Ipratropium [place] (Atrovent 0.02% Nebulizer -) 1 amp NEB Q6H PRN PRN Reason: DYSPEPSIA Stop: 09/15/18 10:39 Lorazepam (Ativan -) 1 mg PO Q8H PRN PRN Reason: ANXIETY Last Admin: 09/08/18 05:36 Dose: 1 mg Methylprednisolone Sodium Succinate (Solu-Medrol -) 60 mg IVPUSH Q6H-IV [facility] Last Admin: 09/08/18 09:43 Dose: 60 mg - Objective Vital Signs: Vital Signs Temperature 97.6 F 09/08/18 07:02 Pulse Rate 94 H 09/08/18 07:02 Respiratory Rate 20 09/08/18 07:02 Blood Pressure 123/64 09/08/18 07:02 O2 Sat by Pulse Oximetry (%) 99 09/08/18 09:00 Constitutional: Yes: Calm, Mild Distress Cardiovascular: Yes: Regular Rate and Rhythm Respiratory: Yes: On BiPap, Poor Air Entry Gastrointestinal: Yes: Normal Bowel Sounds, Soft Musculoskeletal: Yes: WNL Extremities: Yes: WNL Neurological: Yes: Alert, Oriented Psychiatric: Yes: Alert, Oriented Labs: CBC, BMP 09/08/18 10:47 Assessment/Plan patient is having sever resp effort and is very sob. if he tires out he might need intubation should transfer him to [facility] also i suspect there could be drugs involved though he mentions he does not do any drugs Problem List - Problems (1) Hemoptysis Code(s): R04.2 - HEMOPTYSIS (2) Pneumonia Code(s): J18.9 - PNEUMONIA, UNSPECIFIED ORGANISM Qualifiers: (3) Productive cough Code(s): R05 - COUGH (4) SOB (shortness of breath) Code(s): R06.02 - SHORTNESS OF BREATH (5) Head injury Code(s): S09.90XA - UNSPECIFIED INJURY OF HEAD, INITIAL ENCOUNTER Qualifiers: Encounter type: initial encounter Qualified Code(s): S09.90XA - Unspecified injury of head, initial encounter (6) Adult ADHD (attention deficit hyperactivity disorder) Code(s): F90.0 - ATTN-DEFCT HYPERACTIVITY DISORDER, PREDOM INATTENTIVE TYPE (7) Bronchiectasis Code(s): J47.9 - BRONCHIECTASIS, UNCOMPLICATED (8) Hyperlipidemia Code(s): E78.5 - HYPERLIPIDEMIA, UNSPECIFIED (9) Hypertension Code(s): I10 - ESSENTIAL (PRIMARY) HYPERTENSION plan continue abx resp support cx reports noted ct scan when stable rest as per the team
--- NOTE | 2018-09-08 13:14 | PN ---
Progress Note, Physician History of Present Illness: PULMONARY ALERT FEELING BETTER,LESS DYSPNEIC,HAD INCREASED RESP DISTRESS EARLIER REQUIRING NIPPV EARLIER WITH GOOD RESPONSE. PT STILL C/O HEMOPTYSIS - Current Medication List Current Medications: Active Medications Acetaminophen (Tylenol -) 650 mg PO Q6H PRN PRN Reason: FEVER Albuterol Sulfate (Ventolin 0.083% Nebulizer Soln -) 1 amp NEB Q6H PRN PRN Reason: SHORT OF BREATH/WHEEZING Last Admin: 09/08/18 03:28 Dose: 1 amp Albuterol Sulfate (Ventolin 0.083% Nebulizer Soln -) 1 amp NEB RQID [facility] Last Admin: 09/08/18 11:50 Dose: 1 amp Amlodipine Besylate (Norvasc -) 10 mg PO DAILY [facility] Last Admin: 09/08/18 09:43 Dose: 10 mg Aspirin (Asa -) 81 mg PO DAILY [facility] Last Admin: 09/08/18 09:43 Dose: 81 mg Atorvastatin Calcium (Lipitor -) 20 mg PO [facility] Budesonide/Formoterol Fumarate (Symbicort 160/4.5mcg -) 2 puff IH BID [facility] Last Admin: 09/08/18 09:44 Dose: 2 puff Clonidine (Catapres -) 0.2 mg PO QID [facility] Last Admin: 09/08/18 09:42 Dose: 0.2 mg Doxepin HCl (Sinequan -) 75 mg PO HS [facility] Enoxaparin Sodium (Lovenox -) 40 mg SQ DAILY [facility] Last Admin: 09/08/18 09:43 Dose: 40 mg Guaifenesin (Robitussin Dm -) 10 ml PO Q4H PRN PRN Reason: COUGH Last Admin: 09/07/18 22:41 Dose: 10 ml Azithromycin 250 mg/ Dextrose 250 mls @ 250 mls/hr IVPB DAILY [facility] Last Admin: 09/08/18 10:39 Dose: 250 mls/hr Piperacillin Sod/Tazobactam (Sod 3.375 gm/ Dextrose) 50 mls @ 100 mls/hr IVPB Q8H-IV [facility]; Protocol Last Admin: 09/08/18 09:44 Dose: 100 mls/hr Ipratropium [place] (Atrovent 0.02% Nebulizer -) 1 amp NEB Q6H PRN PRN Reason: DYSPEPSIA Stop: 09/15/18 10:39 Lorazepam (Ativan -) 1 mg PO Q8H PRN PRN Reason: ANXIETY Last Admin: 09/08/18 05:36 Dose: 1 mg Methylprednisolone Sodium Succinate (Solu-Medrol -) 60 mg IVPUSH Q6H-IV [facility] Last Admin: 09/08/18 09:43 Dose: 60 mg - Objective Vital Signs: Vital Signs Temperature 98.4 F 09/08/18 12:44 Pulse Rate 92 H 09/08/18 12:44 Respiratory Rate 20 09/08/18 12:44 Blood Pressure 144/80 09/08/18 12:44 O2 Sat by Pulse Oximetry (%) 99 09/08/18 09:00 Constitutional: Yes: Well Nourished, Calm Eyes: Yes: WNL HENT: Yes: WNL Neck: Yes: WNL Cardiovascular: Yes: Regular Rate and Rhythm, S1, S2 Respiratory: Yes: Rhonchi (SCATTERED DORON RHONCHI AND WHEEZES) Gastrointestinal: Yes: Normal Bowel Sounds, Soft Extremities: Yes: WNL Edema: No Labs: CBC, BMP 09/08/18 10:47 09/08/18 10:47 Problem List - Problems (1) Hemoptysis Code(s): R04.2 - HEMOPTYSIS (2) Pneumonia Code(s): J18.9 - PNEUMONIA, UNSPECIFIED ORGANISM Qualifiers: (3) Productive cough Code(s): R05 - COUGH (4) SOB (shortness of breath) Code(s): R06.02 - SHORTNESS OF BREATH (5) Head injury Code(s): S09.90XA - UNSPECIFIED INJURY OF HEAD, INITIAL ENCOUNTER Qualifiers: Encounter type: initial encounter Qualified Code(s): S09.90XA - Unspecified injury of head, initial encounter (6) Adult ADHD (attention deficit hyperactivity disorder) Code(s): F90.0 - ATTN-DEFCT HYPERACTIVITY DISORDER, PREDOM INATTENTIVE TYPE (7) Bronchiectasis Code(s): J47.9 - BRONCHIECTASIS, UNCOMPLICATED (8) Hyperlipidemia Code(s): E78.5 - HYPERLIPIDEMIA, UNSPECIFIED (9) Hypertension Code(s): I10 - ESSENTIAL (PRIMARY) HYPERTENSION Assessment/Plan IMP PNEUMONIA SUPERIMPOSED ON CHRONIC LUNG DISEASE ASTHMA/BRONCHIECTASIS/ILD SUPPLEMENTAL O2 HEMOPTYSIS TRAUMATIC BRAIN INJURY HTN HLD ATTENTION DEFICIT DISORDER PLAN IV ABX INHALED BROCHODILATORS CONTINUE STEROIDS SAME DOSE QUANTIFY HEMOPTYSIS F/U CHEST X-RAYS TRANSFER TO TELEMETRY FOR CLOSER MONITORING DR SEO Problem List - Problems (1) Hemoptysis Code(s): R04.2 - HEMOPTYSIS (2) Pneumonia Code(s): J18.9 - PNEUMONIA, UNSPECIFIED ORGANISM Qualifiers: (3) Productive cough Code(s): R05 - COUGH (4) SOB (shortness of breath) Code(s): R06.02 - SHORTNESS OF BREATH (5) Head injury Code(s): S09.90XA - UNSPECIFIED INJURY OF HEAD, INITIAL ENCOUNTER Qualifiers: Encounter type: initial encounter Qualified Code(s): S09.90XA - Unspecified injury of head, initial encounter (6) Adult ADHD (attention deficit hyperactivity disorder) Code(s): F90.0 - ATTN-DEFCT HYPERACTIVITY DISORDER, PREDOM INATTENTIVE TYPE (7) Bronchiectasis Code(s): J47.9 - BRONCHIECTASIS, UNCOMPLICATED (8) Hyperlipidemia Code(s): E78.5 - HYPERLIPIDEMIA, UNSPECIFIED (9) Hypertension Code(s): I10 - ESSENTIAL (PRIMARY) HYPERTENSION
[2018-09-08] MEDS: ACETAMINOPHEN 325 MG TABLET (FP) PO PRN (14:14)
--- NOTE | 2018-09-08 15:23 | PN ---
Progress Note, Physician History of Present Illness: 24HR EVENTS: -rise in WBC from 8.6 to 20.7, in the setting of IV steroids. -pt with worsening dyspnea overnight, requiring BIPAP use. 12noon AB.46/31/ 105/22/97.9% -pt with moderate amount of hemoptysis this morning. -pt followed by pulmonology who requests pt be transferred to telemetry bed. - Current Medication List Current Medications: Active Medications Acetaminophen (Tylenol -) 650 mg PO Q6H PRN PRN Reason: FEVER Last Admin: 09/08/18 14:14 Dose: 650 mg Albuterol Sulfate (Ventolin 0.083% Nebulizer Soln -) 1 amp NEB Q6H PRN PRN Reason: SHORT OF BREATH/WHEEZING Last Admin: 09/08/18 03:28 Dose: 1 amp Albuterol Sulfate (Ventolin 0.083% Nebulizer Soln -) 1 amp NEB RQID [facility] Last Admin: 09/08/18 11:50 Dose: 1 amp Amlodipine Besylate (Norvasc -) 10 mg PO DAILY [facility] Last Admin: 09/08/18 09:43 Dose: 10 mg Aspirin (Asa -) 81 mg PO DAILY [facility] Last Admin: 09/08/18 09:43 Dose: 81 mg Atorvastatin Calcium (Lipitor -) 20 mg PO HS [facility] Budesonide/Formoterol Fumarate (Symbicort 160/4.5mcg -) 2 puff IH BID [facility] Last Admin: 09/08/18 09:44 Dose: 2 puff Clonidine (Catapres -) 0.2 mg PO QID [facility] Last Admin: 09/08/18 13:15 Dose: 0.2 mg Doxepin HCl (Sinequan -) 75 mg PO HS [facility] Enoxaparin Sodium (Lovenox -) 40 mg SQ DAILY [facility] Last Admin: 09/08/18 09:43 Dose: 40 mg Guaifenesin (Robitussin Dm -) 10 ml PO Q4H PRN PRN Reason: COUGH Last Admin: 09/07/18 22:41 Dose: 10 ml Azithromycin 250 mg/ Dextrose 250 mls @ 250 mls/hr IVPB DAILY [facility] Last Admin: 09/08/18 10:39 Dose: 250 mls/hr Piperacillin Sod/Tazobactam (Sod 3.375 gm/ Dextrose) 50 mls @ 100 mls/hr IVPB Q8H-IV [facility]; Protocol Last Admin: 09/08/18 09:44 Dose: 100 mls/hr Ipratropium [place] (Atrovent 0.02% Nebulizer -) 1 amp NEB Q6H PRN PRN Reason: DYSPEPSIA Stop: 09/15/18 10:39 Lorazepam (Ativan -) 1 mg PO Q8H PRN PRN Reason: ANXIETY Last Admin: 09/08/18 05:36 Dose: 1 mg Methylprednisolone Sodium Succinate (Solu-Medrol -) 60 mg IVPUSH Q6H-IV [facility] Last Admin: 09/08/18 14:13 Dose: 60 mg - Objective Vital Signs: Vital Signs Temperature 98.4 F 09/08/18 15:19 Pulse Rate 94 H 09/08/18 15:19 Respiratory Rate 18 09/08/18 15:19 Blood Pressure 142/72 09/08/18 15:19 O2 Sat by Pulse Oximetry (%) 99 09/08/18 09:00 Constitutional: Yes: Anxious, Cachectic, Mild Distress Eyes: Yes: Conjunctiva Clear, PERRL HENT: Yes: Atraumatic, Normocephalic Neck: Yes: Supple, Trachea Midline Respiratory: Yes: Accessory Muscle Use, On BiPap, Rales, Rhonchi Gastrointestinal: Yes: Normal Bowel Sounds, Soft ...Rectal Exam: Yes: Deferred Musculoskeletal: Yes: WNL Extremities: Yes: WNL Edema: No Peripheral Pulses WNL: Yes Peripheral Pulses: Left Radial: 2+, Right Radial: 2+, Left Doralis Pedis: 2+, Right Dorsalis Pedis: 2+ Integumentary: Yes: WNL Neurological: Yes: Alert, Oriented ...Motor Strength: WNL Psychiatric: Yes: Alert, Oriented Labs: CBC, BMP 09/08/18 10:47 09/08/18 10:47 Problem List - Problems (1) Bronchiectasis with (acute) exacerbation Assessment/Plan: 6L NC during daytime BIPAP overnight continue methylpred 60mg Q6 pulmonary recommendations appreciated continue Zosyn and Azith trend WBC and temp curve Code(s): J47.1 - BRONCHIECTASIS WITH (ACUTE) EXACERBATION (2) Chronic headache disorder Assessment/Plan: tramadol 50mg 1 tab q8hrs PRN Code(s): R51 - HEADACHE (3) Anxiety disorder Assessment/Plan: Sinequan 75mg at bedtime Ativan 1mg TID PRN Code(s): F41.9 - ANXIETY DISORDER, UNSPECIFIED (4) Prophylactic measure Assessment/Plan: ASA 81mg daily Lovenox 40mg daily Robitussin DM as needed Code(s): Z29.9 - ENCOUNTER FOR PROPHYLACTIC MEASURES, UNSPECIFIED (5) Hemoptysis Assessment/Plan: f/u sputum cx monitor volume of hemoptysis Code(s): R04.2 - HEMOPTYSIS (6) SOB (shortness of breath) Assessment/Plan: PRN albuterol and Atrovent symbicort 160/4.5mcg BID Incentive spirometry OOB to chair Ambulate as tolerated Code(s): R06.02 - SHORTNESS OF BREATH (7) Hyperlipidemia Assessment/Plan: lipitor 20mg qhs Code(s): E78.5 - HYPERLIPIDEMIA, UNSPECIFIED (8) Hypertension Assessment/Plan: clonidine 0.2mg QID norvasc 10mg daily cardiac diet Code(s): I10 - ESSENTIAL (PRIMARY) HYPERTENSION Impression/Plan Impression/Plan: DISPO: Full code Visit type - Emergency Visit Emergency Visit: Yes ED Registration Date: 09/06/18 Care time: The patient presented to the Emergency Department on the above date and was hospitalized for further evaluation of their emergent condition. - New Patient This patient is new to me today: Yes Date on this admission: 09/08/18 - Critical Care Critical Care patient: No - Discharge Referral Referred to [facility] Med P.C.: No
[2018-09-08] MEDS: traMADol HCL 50 MG TABLET PO PRN (16:34)
[2018-09-08] MEDS ORDERED: SENNOSIDES/DOCUSATE COMBO (SENNA PLUS) TABLET (UD) PO PRN (16:36)
[2018-09-08] MEDS ORDERED: DOCUSATE SODIUM 100 MG CAPSULE (FP) PO PRN (16:36)
[2018-09-08] MEDS: IPRATROPIUM BR 0.02% 0.5 MG/2.5 ML VIAL.NEB. NEB PRN (21:27)
[2018-09-08] MEDS: DOXEPIN HCL 25 MG CAPSULE PO SCH (23:59)
[2018-09-09] MEDS: ACETAMINOPHEN 325 MG TABLET (FP) PO PRN (00:20)
[2018-09-09] MEDS ORDERED: PIPERACILLIN/TAZOBACTAM 3.375 GM VIAL IVPB ONE ×3 (01:15→17:16)
[2018-09-09] MEDS ORDERED: DEXTROSE 5%-WATER - 50 ML IVPB ONE ×3 (01:16→17:16)
[2018-09-09] MEDS: ALBUTEROL SO4 0.083% IH SOL 2.5 MG/3 ML VIAL.NEB. NEB PRN ×2 (01:40→06:48)
[2018-09-09] MEDS ORDERED: ZOLPIDEM TARTRATE 5 MG TABLET PO PRN (01:48)
[2018-09-09] MEDS: methylPREDNISolone NA SUCC 40 MG/1 ML VIAL IVPUSH SCH ×4 (02:12→22:50)
[2018-09-09] MEDS: PIPERACILLIN/TAZOB 3.375 GM 3.375 GM in DEXTROSE 5%-WATER - 50 ML IVPB SCH ×3 (02:12→17:30)
[2018-09-09] MEDS: guaiFENesin/D-METHORPHAN HB 10 ML UNIT-DOSE CUPS PO PRN ×2 (02:15→22:46)
[2018-09-09] MEDS: traMADol HCL 50 MG TABLET PO PRN (02:20)
[2018-09-09] MEDS ORDERED: LORazepam 1 MG TABLET PO ONE (03:11)
[2018-09-09] MEDS ORDERED: LORazepam 2 MG/ML SDV VIAL IVPUSH ONE (03:15)
[2018-09-09 06:45] LABS: HEMATOCRIT 32.4 % (35.4-49); HEMOGLOBIN 10.6 GM/dL (11.7-16.9); MCH 27.3 pg (25.7-33.7); MCHC 32.8 g/dl (32.0-35.9); MEAN CELL VOLUME 83.4 fl (80-96); MEAN PLT VOLUME 8.8 fl (7.5-11.1); PLATELET COUNT 307 K/MM3 (134-434); RBC 3.89 M/mm3 (4.00-5.60); RDW 14.4 % (11.9-15.9); WHITE BLOOD COUNT 21.9 K/mm3 (4.0-10.0)
[2018-09-09] MEDS: IPRATROPIUM BR 0.02% 0.5 MG/2.5 ML VIAL.NEB. NEB PRN (06:48)
[2018-09-09 07:14] LABS: ALBUMIN 2.5 g/dl (3.4-5.0); ALK PHOS 68 U/L (45-117); ANION GAP 10 MMOL/L (8-16); BILIRUBIN,TOTAL 0.4 mg/dL (0.2-1); BLOOD UREA NITROGEN 22 mg/dL (7-18); CHLORIDE 106 mmol/L (98-107); CO2 24 mmol/L (21-32); CREATININE 0.8 mg/dL (0.55-1.3); GLUCOSE,RANDOM 132 mg/dL (74-106); MAGNESIUM 2.4 mg/dL (1.8-2.4); PHOSPHOROUS 3.4 mg/dL (2.5-4.9); POTASSIUM 3.5 mmol/L (3.5-5.1); SGOT/AST 43 U/L (15-37); SGPT/ALT 69 U/L (13-61); SODIUM 140 mmol/L (136-145)
[2018-09-09] MEDS: ALBUTEROL SO4 0.083% IH SOL 2.5 MG/3 ML VIAL.NEB. NEB SCH ×4 (07:44→20:45)
[2018-09-09] MEDS: LORazepam 1 MG TABLET PO PRN ×4 (08:19→23:58)
--- NOTE | 2018-09-09 09:01 | PN ---
Progress Note (short form) - Note Progress Note: Pt complaining of severe SALAS which is similar to his migraine HAs. He takes imitrex 50 mg at home for acute migraines. Will give him 50 mg imitrex PO once at this time. Pt in agreement with plan. He would not like more ativan at this time.
[2018-09-09] MEDS: amLODIPine BESYLATE 10 MG TABLET (FP) PO SCH (10:04)
[2018-09-09] MEDS: ENOXAPARIN NA (PORCINE) 40 MG/0.4 ML DISP.SYRIN SQ SCH (10:04)
[2018-09-09] MEDS: cloNIDine HCL 0.1 MG TABLET PO SCH ×5 (10:04→23:57)
[2018-09-09] MEDS: AZITHROMYCIN IVPB 250 MG in DEXTROSE 5%-WATER - 250 ML IVPB SCH (10:04)
[2018-09-09] MEDS: ASPIRIN 81 MG CHEWABLE TABLETS PO SCH (10:04)
[2018-09-09] MEDS ORDERED: SUMAtriptan SUCCINATE 50 MG TABLET PO ONE ×2 (10:15→23:00)
[2018-09-09] MEDS ORDERED: PT OWN MED DRAWER 7, Y5N ONE (10:16)
[2018-09-09] MEDS: BUDESONIDE/FORMETEROL FUMARATE 160/4.5 mcg INHALER IH SCH ×3 (10:20→23:08)
--- NOTE | 2018-09-09 12:13 | PN ---
Physical Exam: SUBJECTIVE: Patient seen and examined. He was complaining of headache this morning. He feels SOB is improving. OBJECTIVE: Vital Signs Period Temp Pulse Resp BP Sys/Walter Pulse Ox Last 24 Hr 96.4 F-98.4 F 71-94 18-26 124-144/60-80 95-100 GENERAL: The patient is awake, alert, and fully oriented, in mild respiratory distress. LUNGS: Breath sounds equal, bilateral rhonchi, no accessory muscle use. HEART: Regular rate and rhythm, S1, S2 without murmur, rub or gallop. ABDOMEN: Soft, nontender, nondistended, normoactive bowel sounds, no guarding, no rebound, no hepatosplenomegaly, no masses. EXTREMITIES: 2+ pulses, warm, well-perfused, no edema. Laboratory Results - last 24 hr 09/08/18 09/09/18 09/09/18 10:47 05:30 05:30 WBC 20.7 H 21.9 H RBC 3.86 L 3.89 L Hgb 10.6 L 10.6 L Hct 32.0 L D 32.4 L MCV 82.9 83.4 MCH 27.3 27.3 MCHC 33.0 32.8 RDW 14.0 14.4 Plt Count 293 307 MPV 8.6 8.8 Sodium 140 Potassium 3.5 Chloride 106 Carbon Dioxide 24 Anion Gap 10 BUN 22 H Creatinine 0.8 Creat Clearance w eGFR > 60 Random Glucose 132 H Calcium 8.0 L Phosphorus 3.4 Magnesium 2.4 Total Bilirubin 0.4 AST 43 H ALT 69 H Alkaline Phosphatase 68 Total Protein 6.0 L Albumin 2.5 L Active Medications Generic Name Dose Route Start Last Admin Trade Name Freq PRN Reason Stop Dose Admin Acetaminophen 650 mg 09/07/18 22:10 09/09/18 00:20 Tylenol - PO 650 mg Q6H PRN Administration FEVER Albuterol Sulfate 1 amp 09/07/18 22:10 09/09/18 06:48 Ventolin 0.083% Nebulizer Soln - NEB 1 amp Q6H PRN Administration SHORT OF BREATH/WHEEZING Albuterol Sulfate 1 amp 09/08/18 08:00 09/09/18 11:54 Ventolin 0.083% Nebulizer Soln - NEB 1 amp RQID [facility] Administration Amlodipine Besylate 10 mg 09/08/18 10:00 09/09/18 10:04 Norvasc - PO 10 mg DAILY [facility] Administration Aspirin 81 mg 09/08/18 10:00 09/09/18 10:04 Asa - PO 81 mg DAILY [facility] Administration Atorvastatin Calcium 20 mg 09/08/18 22:00 09/09/18 00:00 Lipitor - PO 20 mg HS [facility] Administration Budesonide/Formoterol Fumarate 2 puff 09/07/18 22:30 09/09/18 10:20 Symbicort 160/4.5mcg - IH 2 puff BID [facility] Administration Clonidine 0.2 mg 09/08/18 10:00 09/09/18 10:04 Catapres - PO 0.2 mg QID [facility] Administration Docusate Sodium 100 mg 09/08/18 16:36 Colace - PO Q12H PRN CONSTIPATION Doxepin HCl 75 mg 09/08/18 22:00 09/08/18 23:59 Sinequan - PO 75 mg HS [facility] Administration Enoxaparin Sodium 40 mg 09/08/18 10:00 09/09/18 10:04 Lovenox - SQ 40 mg DAILY [facility] Administration Guaifenesin 10 ml 09/07/18 22:10 09/09/18 02:15 Robitussin Dm - PO 10 ml Q4H PRN Administration COUGH Azithromycin 250 mg/ Dextrose 250 mls @ 250 mls/hr 09/08/18 10:00 09/09/18 10 :04 IVPB 250 mls/hr DAILY [facility] Administration Piperacillin Sod/Tazobactam 50 mls @ 100 mls/hr 09/08/18 02:00 09/09/18 10:04 Sod 3.375 gm/ Dextrose IVPB 100 mls/hr Q8H-IV [facility] Administration Protocol Ipratropium [place] 1 amp 09/08/18 10:39 09/09/18 06:48 Atrovent 0.02% Nebulizer - NEB 09/15/18 10:39 1 amp Q6H PRN Administration DYSPEPSIA Lorazepam 1 mg 09/07/18 22:10 09/09/18 08:19 Ativan - PO 1 mg Q8H PRN Administration ANXIETY Methylprednisolone Sodium Succinate 60 mg 09/08/18 03:00 09/09/18 08:20 Solu-Medrol - IVPUSH 60 mg Q6H-IV [facility] Administration Senna/Docusate Sodium 2 tablet 09/08/18 16:36 Pericolace - PO HS PRN [facility] Tramadol HCl 50 mg 09/08/18 16:15 09/09/18 02:20 Ultram - PO 50 mg Q8H PRN Administration PAIN LEVEL 6-10 ASSESSMENT/PLAN: This is a 68 year old man with a history of HTN, hyperlipidemia, asthma, chronic bronchiectasis, ADD, anxiety, TBI who presented to the ED with cough and SOB. 1. Acute hypoxic respiratory failure secondary to exacerbation of chronic bronchiectasis vs asthma - Continue SoluMedrol, Symbicort, albuterol, albuterol/atrovenlt nebs as needed, Robitussin DM as needed - Continue oxygen to maintain saturation >90% - BiPAP as needed 2. Pneumonia - Afebrile - Continue Zosyn, Zithromax 3. Hemoptysis 4. Headache - Given Imitrex 5. Anxiety disorder - Contune Doxepin, Ativan as needed 6. Attention deficit disorder - On Adderall at home 7. History of traumatic brain injury 8. Hypertension - Continue Norvasc, Clonidine 9. Hyperlipidemia -Continue Lipitor Visit type - Emergency Visit Emergency Visit: Yes ED Registration Date: 09/06/18 Care time: The patient presented to the Emergency Department on the above date and was hospitalized for further evaluation of their emergent condition. - New Patient This patient is new to me today: Yes Date on this admission: 09/09/18 - Critical Care Critical Care patient: No - Discharge Referral Referred to [facility] Med P.C.: No
--- NOTE | 2018-09-09 12:20 | PN ---
Progress Note (short form) - Note Progress Note: PULMONARY Remains short of breath but slightly improved. On BiPAP. Vital Signs Period Temp Pulse Resp BP Sys/Walter Pulse Ox Last 24 Hr 96.4 F-98.4 F 71-94 18-26 124-144/60-80 95-100 Gen: mildly tachypneic on BiPAP Heart: RRR Lung: bilateral rhonchi Abd: soft, nontender Ext: no edema CBC, BMP 09/09/18 05:30 09/09/18 05:30 Active Medications Acetaminophen (Tylenol -) 650 mg PO Q6H PRN PRN Reason: FEVER Last Admin: 09/09/18 00:20 Dose: 650 mg Albuterol Sulfate (Ventolin 0.083% Nebulizer Soln -) 1 amp NEB Q6H PRN PRN Reason: SHORT OF BREATH/WHEEZING Last Admin: 09/09/18 06:48 Dose: 1 amp Albuterol Sulfate (Ventolin 0.083% Nebulizer Soln -) 1 amp NEB RQID [facility] Last Admin: 09/09/18 11:54 Dose: 1 amp Amlodipine Besylate (Norvasc -) 10 mg PO DAILY [facility] Last Admin: 09/09/18 10:04 Dose: 10 mg Aspirin (Asa -) 81 mg PO DAILY [facility] Last Admin: 09/09/18 10:04 Dose: 81 mg Atorvastatin Calcium (Lipitor -) 20 mg PO HS [facility] Last Admin: 09/09/18 00:00 Dose: 20 mg Budesonide/Formoterol Fumarate (Symbicort 160/4.5mcg -) 2 puff IH BID [facility] Last Admin: 09/09/18 10:20 Dose: 2 puff Clonidine (Catapres -) 0.2 mg PO QID [facility] Last Admin: 09/09/18 10:04 Dose: 0.2 mg Docusate Sodium (Colace -) 100 mg PO Q12H PRN PRN Reason: CONSTIPATION Doxepin HCl (Sinequan -) 75 mg PO HS [facility] Last Admin: 09/08/18 23:59 Dose: 75 mg Enoxaparin Sodium (Lovenox -) 40 mg SQ DAILY [facility] Last Admin: 09/09/18 10:04 Dose: 40 mg Guaifenesin (Robitussin Dm -) 10 ml PO Q4H PRN PRN Reason: COUGH Last Admin: 09/09/18 02:15 Dose: 10 ml Azithromycin 250 mg/ Dextrose 250 mls @ 250 mls/hr IVPB DAILY [facility] Last Admin: 09/09/18 10:04 Dose: 250 mls/hr Piperacillin Sod/Tazobactam (Sod 3.375 gm/ Dextrose) 50 mls @ 100 mls/hr IVPB Q8H-IV [facility]; Protocol Last Admin: 09/09/18 10:04 Dose: 100 mls/hr Ipratropium [place] (Atrovent 0.02% Nebulizer -) 1 amp NEB Q6H PRN PRN Reason: DYSPEPSIA Stop: 09/15/18 10:39 Last Admin: 09/09/18 06:48 Dose: 1 amp Lorazepam (Ativan -) 1 mg PO Q8H PRN PRN Reason: ANXIETY Last Admin: 09/09/18 08:19 Dose: 1 mg Methylprednisolone Sodium Succinate (Solu-Medrol -) 60 mg IVPUSH Q6H-IV [facility] Last Admin: 09/09/18 08:20 Dose: 60 mg Senna/Docusate Sodium (Pericolace -) 2 tablet PO HS PRN PRN Reason: CONSTIPATION Tramadol HCl (Ultram -) 50 mg PO Q8H PRN PRN Reason: PAIN LEVEL 6-10 Last Admin: 09/09/18 02:20 Dose: 50 mg A/P Pneumonia Acute Asthma vs Bronchiectasis Exacerbation Interstitial Lung Disease Hemoptysis h/o TBI HTN Hyperlipidemia - continue antibiotics - continue medrol at current dose - inhaled bronchodilators standing and PRN - O2 to keep SpO2 >90% - BiPAP as needed to assist in work of breathing - monitor hemoptysis - DVT prophylaxis
--- NOTE | 2018-09-09 14:19 | PN ---
Progress Note, Physician Chief Complaint: Pt A&Ox3; on Bipap; no chest pain; +dyspnea History of Present Illness: This is a 67 year old white male with PMHx traumatic brain injury, attention deficit disorder(on adderal), asthma/bronchiectasis (on albuterol and advair), hypertension (on amlodipine) and hyperlipidemia who presents with 2 days of SOB , productive cough of yellow sputum, lightheadedness and anxiety. Pt also reported he had 1 episode of bloody sputum and fever with temperature maximum of 102. He denied chest pain, headache, focal weakness/numbness, abdominal pain ,nausea, vomiting or diarrhea. In the ER he had wheezing and crackles. He was treated with duonebulizers , IV antibiotics with one dosage of IV Azithromycin 500 mg , ceftriaxone 1 gm and methylprednisolone 125 mg. He had a normal ABG, initially was placed on a bipap machine and weaned off. Labs notable for a normal WBC and lactic acid level, BNP 2157. Influenzae A and B were negative. He was admitted for further medical management. Pt denies cigarettes. 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 - Current Medication List Current Medications: Active Medications Acetaminophen (Tylenol -) 650 mg PO Q6H PRN PRN Reason: FEVER Last Admin: 09/09/18 00:20 Dose: 650 mg Albuterol Sulfate (Ventolin 0.083% Nebulizer Soln -) 1 amp NEB Q6H PRN PRN Reason: SHORT OF BREATH/WHEEZING Last Admin: 09/09/18 06:48 Dose: 1 amp Albuterol Sulfate (Ventolin 0.083% Nebulizer Soln -) 1 amp NEB RQID [facility] Last Admin: 09/09/18 11:54 Dose: 1 amp Amlodipine Besylate (Norvasc -) 10 mg PO DAILY [facility] Last Admin: 09/09/18 10:04 Dose: 10 mg Aspirin (Asa -) 81 mg PO DAILY [facility] Last Admin: 09/09/18 10:04 Dose: 81 mg Atorvastatin Calcium (Lipitor -) 20 mg PO HS [facility] Last Admin: 09/09/18 00:00 Dose: 20 mg Budesonide/Formoterol Fumarate (Symbicort 160/4.5mcg -) 2 puff IH BID [facility] Last Admin: 09/09/18 10:20 Dose: 2 puff Clonidine (Catapres -) 0.2 mg PO QID [facility] Last Admin: 09/09/18 13:44 Dose: 0.2 mg Docusate Sodium (Colace -) 100 mg PO Q12H PRN PRN Reason: CONSTIPATION Last Admin: 09/09/18 13:44 Dose: 100 mg Doxepin HCl (Sinequan -) 75 mg PO HS [facility] Last Admin: 09/08/18 23:59 Dose: 75 mg Enoxaparin Sodium (Lovenox -) 40 mg SQ DAILY [facility] Last Admin: 09/09/18 10:04 Dose: 40 mg Guaifenesin (Robitussin Dm -) 10 ml PO Q4H PRN PRN Reason: COUGH Last Admin: 09/09/18 02:15 Dose: 10 ml Azithromycin 250 mg/ Dextrose 250 mls @ 250 mls/hr IVPB DAILY [facility] Last Admin: 09/09/18 10:04 Dose: 250 mls/hr Piperacillin Sod/Tazobactam (Sod 3.375 gm/ Dextrose) 50 mls @ 100 mls/hr IVPB Q8H-IV [facility]; Protocol Last Admin: 09/09/18 10:04 Dose: 100 mls/hr Ipratropium [place] (Atrovent 0.02% Nebulizer -) 1 amp NEB Q6H PRN PRN Reason: DYSPEPSIA Stop: 09/15/18 10:39 Last Admin: 09/09/18 06:48 Dose: 1 amp Lorazepam (Ativan -) 2 mg PO Q8H PRN PRN Reason: ANXIETY Methylprednisolone Sodium Succinate (Solu-Medrol -) 60 mg IVPUSH Q6H-IV [facility] Last Admin: 09/09/18 08:20 Dose: 60 mg Senna/Docusate Sodium (Pericolace -) 2 tablet PO HS PRN PRN Reason: CONSTIPATION Tramadol HCl (Ultram -) 50 mg PO Q8H PRN PRN Reason: PAIN LEVEL 6-10 Last Admin: 09/09/18 02:20 Dose: 50 mg - Objective Vital Signs: Vital Signs Temperature 98.1 F 09/09/18 13:42 Pulse Rate 77 09/09/18 13:42 Respiratory Rate 25 H 09/09/18 13:42 Blood Pressure 143/71 09/09/18 13:42 O2 Sat by Pulse Oximetry (%) 97 09/09/18 11:54 Constitutional: Yes: Calm Eyes: Yes: WNL HENT: Yes: WNL Neck: Yes: WNL Cardiovascular: Yes: S1, S2, S4 Respiratory: Yes: Diminished Gastrointestinal: Yes: Soft ...Rectal Exam: Yes: Deferred Genitourinary: Yes: Anuria Breast(s): Yes: WNL Musculoskeletal: Yes: WNL Extremities: Yes: WNL Edema: No Peripheral Pulses WNL: Yes Integumentary: Yes: WNL Neurological: Yes: WNL Psychiatric: Yes: WNL Labs: CBC, BMP 09/09/18 05:30 09/09/18 05:30 Abnormal Lab Results 09/09/18 09/09/18 05:30 05:30 WBC 21.9 H RBC 3.89 L Hgb 10.6 L Hct 32.4 L BUN 22 H Random Glucose 132 H Calcium 8.0 L AST 43 H ALT 69 H Total Protein 6.0 L Albumin 2.5 L Abnormal Lab Results 09/10/18 14:33 WBC 19.9 H Hgb 11.3 L Hct 33.9 L - ....Imaging Chest X-ray: Image Reviewed EKG: Image Reviewed Problem List - Problems (1) Hemoptysis Assessment/Plan: Pt says he noticed blood at times in phlegm. + Anemia Code(s): R04.2 - HEMOPTYSIS (2) Pneumonia Assessment/Plan: on antibiotics per ID. Code(s): J18.9 - PNEUMONIA, UNSPECIFIED ORGANISM Qualifiers: (3) COPD with acute bronchitis Assessment/Plan: On BIpap, bronchodilators, steroids IV, antibotics. 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 Code(s): J47.9 - BRONCHIECTASIS, UNCOMPLICATED (7) Hyperlipidemia Assessment/Plan: Total cholesterol 105; LDL cholesterol 38 mg/dL; presently on atorvastatin 20 mg daily. Code(s): E78.5 - HYPERLIPIDEMIA, UNSPECIFIED (8) Hypertension Assessment/Plan: on clonidine and amlodipine. ECHO: limited study (recommend repeat when pt better able to comply with body positioning for potentially better views): probably normal LVEF and RVEF; mildly elevated RA pressure. Code(s): I10 - ESSENTIAL (PRIMARY) HYPERTENSION (9) [place] cardiac risk >20% in next 10 years Assessment/Plan: Pt denies ever having had a stress test or coronary angiogram. Coronary artery evaluation when pulmonary status stable. Code(s): Z91.89 - OTH PERSONAL RISK FACTORS, NOT ELSEWHERE CLASSIFIED (10) Hiatal hernia Assessment/Plan: moderate (by CT scan). Code(s): K44.9 - DIAPHRAGMATIC HERNIA WITHOUT OBSTRUCTION OR GANGRENE (11) Diastolic CHF Assessment/Plan: ECHO: probably normal LVEF. Code(s): I50.30 - UNSPECIFIED DIASTOLIC (CONGESTIVE) HEART FAILURE
--- NOTE | 2018-09-09 17:02 | PN ---
Progress Note, Physician History of Present Illness: stable doing well breathing better - Current Medication List Current Medications: Active Medications Acetaminophen (Tylenol -) 650 mg PO Q6H PRN PRN Reason: FEVER Last Admin: 09/09/18 00:20 Dose: 650 mg Albuterol Sulfate (Ventolin 0.083% Nebulizer Soln -) 1 amp NEB Q6H PRN PRN Reason: SHORT OF BREATH/WHEEZING Last Admin: 09/09/18 06:48 Dose: 1 amp Albuterol Sulfate (Ventolin 0.083% Nebulizer Soln -) 1 amp NEB RQID [facility] Last Admin: 09/09/18 16:06 Dose: 1 amp Amlodipine Besylate (Norvasc -) 10 mg PO DAILY [facility] Last Admin: 09/09/18 10:04 Dose: 10 mg Aspirin (Asa -) 81 mg PO DAILY [facility] Last Admin: 09/09/18 10:04 Dose: 81 mg Atorvastatin Calcium (Lipitor -) 20 mg PO HS [facility] Last Admin: 09/09/18 00:00 Dose: 20 mg Budesonide/Formoterol Fumarate (Symbicort 160/4.5mcg -) 2 puff IH BID [facility] Last Admin: 09/09/18 10:20 Dose: 2 puff Clonidine (Catapres -) 0.2 mg PO QID [facility] Last Admin: 09/09/18 13:44 Dose: 0.2 mg Docusate Sodium (Colace -) 100 mg PO Q12H PRN PRN Reason: CONSTIPATION Last Admin: 09/09/18 13:44 Dose: 100 mg Doxepin HCl (Sinequan -) 75 mg PO HS [facility] Last Admin: 09/08/18 23:59 Dose: 75 mg Enoxaparin Sodium (Lovenox -) 40 mg SQ DAILY [facility] Last Admin: 09/09/18 10:04 Dose: 40 mg Guaifenesin (Robitussin Dm -) 10 ml PO Q4H PRN PRN Reason: COUGH Last Admin: 09/09/18 02:15 Dose: 10 ml Azithromycin 250 mg/ Dextrose 250 mls @ 250 mls/hr IVPB DAILY [facility] Last Admin: 09/09/18 10:04 Dose: 250 mls/hr Piperacillin Sod/Tazobactam (Sod 3.375 gm/ Dextrose) 50 mls @ 100 mls/hr IVPB Q8H-IV [facility]; Protocol Last Admin: 09/09/18 10:04 Dose: 100 mls/hr Ipratropium [place] (Atrovent 0.02% Nebulizer -) 1 amp NEB Q6H PRN PRN Reason: DYSPEPSIA Stop: 09/15/18 10:39 Last Admin: 09/09/18 06:48 Dose: 1 amp Lorazepam (Ativan -) 2 mg PO Q8H PRN PRN Reason: ANXIETY Methylprednisolone Sodium Succinate (Solu-Medrol -) 60 mg IVPUSH Q6H-IV [facility] Last Admin: 09/09/18 15:51 Dose: 60 mg Senna/Docusate Sodium (Pericolace -) 2 tablet PO HS PRN PRN Reason: CONSTIPATION Tramadol HCl (Ultram -) 50 mg PO Q8H PRN PRN Reason: PAIN LEVEL 6-10 Last Admin: 09/09/18 02:20 Dose: 50 mg - Objective Vital Signs: Vital Signs Temperature 98.1 F 09/09/18 13:42 Pulse Rate 77 09/09/18 13:42 Respiratory Rate 25 H 09/09/18 13:42 Blood Pressure 143/71 09/09/18 13:42 O2 Sat by Pulse Oximetry (%) 93 L 09/09/18 16:06 Constitutional: Yes: No Distress, Calm Cardiovascular: Yes: Regular Rate and Rhythm Respiratory: Yes: On BiPap, On Nasal O2, Poor Air Entry Gastrointestinal: Yes: Normal Bowel Sounds, Soft Musculoskeletal: Yes: WNL Extremities: Yes: WNL Neurological: Yes: Alert, Oriented Psychiatric: Yes: Alert, Oriented Labs: CBC, BMP 09/09/18 05:30 09/09/18 05:30 Assessment/Plan patient is having sever resp effort and is very sob. if he tires out he might need intubation should transfer him to [facility] also i suspect there could be drugs involved though he mentions he does not do any drugs Problem List - Problems (1) Hemoptysis Code(s): R04.2 - HEMOPTYSIS (2) Pneumonia Code(s): J18.9 - PNEUMONIA, UNSPECIFIED ORGANISM Qualifiers: (3) Productive cough Code(s): R05 - COUGH (4) SOB (shortness of breath) Code(s): R06.02 - SHORTNESS OF BREATH (5) Head injury Code(s): S09.90XA - UNSPECIFIED INJURY OF HEAD, INITIAL ENCOUNTER Qualifiers: Encounter type: initial encounter Qualified Code(s): S09.90XA - Unspecified injury of head, initial encounter (6) Adult ADHD (attention deficit hyperactivity disorder) Code(s): F90.0 - ATTN-DEFCT HYPERACTIVITY DISORDER, PREDOM INATTENTIVE TYPE (7) Bronchiectasis Code(s): J47.9 - BRONCHIECTASIS, UNCOMPLICATED (8) Hyperlipidemia Code(s): E78.5 - HYPERLIPIDEMIA, UNSPECIFIED (9) Hypertension Code(s): I10 - ESSENTIAL (PRIMARY) HYPERTENSION plan continue abx resp support cx reports noted ct scan when stable rest as per the team will deescalate tomorrow
[2018-09-09] MEDS ORDERED: MAG HYDROX/AL HYDROX/SIMETH 30 ML UNIT-DOSE CUP PO PRN (22:21)
[2018-09-09] MEDS: ATORVASTATIN CA 20 MG TABLET (FP) PO SCH ×2 (23:57)
[2018-09-09] MEDS: DOXEPIN HCL 25 MG CAPSULE PO SCH (23:58)
[2018-09-10] MEDS ORDERED: PIPERACILLIN/TAZOBACTAM 3.375 GM VIAL IVPB ONE ×3 (03:11→17:07)
[2018-09-10] MEDS ORDERED: DEXTROSE 5%-WATER - 50 ML IVPB ONE ×3 (03:11→17:08)
[2018-09-10] MEDS: methylPREDNISolone NA SUCC 40 MG/1 ML VIAL IVPUSH SCH ×4 (03:26→21:55)
[2018-09-10] MEDS: PIPERACILLIN/TAZOB 3.375 GM 3.375 GM in DEXTROSE 5%-WATER - 50 ML IVPB SCH ×3 (03:27→18:20)
[2018-09-10] MEDS: guaiFENesin/D-METHORPHAN HB 10 ML UNIT-DOSE CUPS PO PRN (07:30)
[2018-09-10] MEDS: ALBUTEROL SO4 0.083% IH SOL 2.5 MG/3 ML VIAL.NEB. NEB SCH ×4 (07:42→20:58)
[2018-09-10] MEDS: cloNIDine HCL 0.1 MG TABLET PO SCH ×4 (09:22→21:56)
[2018-09-10] MEDS: ASPIRIN 81 MG CHEWABLE TABLETS PO SCH (09:22)
[2018-09-10] MEDS: ENOXAPARIN NA (PORCINE) 40 MG/0.4 ML DISP.SYRIN SQ SCH (09:23)
[2018-09-10] MEDS: amLODIPine BESYLATE 10 MG TABLET (FP) PO SCH (09:23)
[2018-09-10] MEDS: LORazepam 1 MG TABLET PO PRN ×2 (09:24→21:56)
[2018-09-10] MEDS: BUDESONIDE/FORMETEROL FUMARATE 160/4.5 mcg INHALER IH SCH ×2 (09:26→21:59)
--- NOTE | 2018-09-10 10:22 | PN ---
Progress Note, Physician History of Present Illness: PULMONARY ALERT,LESS DYSPNEIC,+ HEMOPTYSIS - Current Medication List Current Medications: Active Medications Acetaminophen (Tylenol -) 650 mg PO Q6H PRN PRN Reason: FEVER Last Admin: 09/09/18 00:20 Dose: 650 mg Al Hydroxide/Mg Hydroxide (Mylanta Oral Suspension -) 30 ml PO Q6H PRN PRN Reason: DYSPEPSIA Albuterol Sulfate (Ventolin 0.083% Nebulizer Soln -) 1 amp NEB Q6H PRN PRN Reason: SHORT OF BREATH/WHEEZING Last Admin: 09/09/18 06:48 Dose: 1 amp Albuterol Sulfate (Ventolin 0.083% Nebulizer Soln -) 1 amp NEB RQID [facility] Last Admin: 09/10/18 07:42 Dose: 1 amp Amlodipine Besylate (Norvasc -) 10 mg PO DAILY [facility] Last Admin: 09/10/18 09:23 Dose: 10 mg Artificial Tears (Artificial Tears) 1 drop OU Q6H PRN PRN Reason: DRY EYES Aspirin (Asa -) 81 mg PO DAILY [facility] Last Admin: 09/10/18 09:22 Dose: 81 mg Atorvastatin Calcium (Lipitor -) 20 mg PO HS [facility] Last Admin: 09/09/18 23:57 Dose: 20 mg Budesonide/Formoterol Fumarate (Symbicort 160/4.5mcg -) 2 puff IH BID [facility] Last Admin: 09/10/18 09:26 Dose: 2 puff Clonidine (Catapres -) 0.2 mg PO QID [facility] Last Admin: 09/10/18 09:22 Dose: 0.2 mg Docusate Sodium (Colace -) 100 mg PO Q12H PRN PRN Reason: CONSTIPATION Last Admin: 09/09/18 13:44 Dose: 100 mg Doxepin HCl (Sinequan -) 75 mg PO HS [facility] Last Admin: 09/09/18 23:58 Dose: 75 mg Enoxaparin Sodium (Lovenox -) 40 mg SQ DAILY [facility] Last Admin: 09/10/18 09:23 Dose: 40 mg Guaifenesin (Robitussin Dm -) 10 ml PO Q4H PRN PRN Reason: COUGH Last Admin: 09/10/18 07:30 Dose: 10 ml Piperacillin Sod/Tazobactam (Sod 3.375 gm/ Dextrose) 50 mls @ 100 mls/hr IVPB Q8H-IV [facility]; Protocol Last Admin: 09/10/18 09:25 Dose: 100 mls/hr Ipratropium [place] (Atrovent 0.02% Nebulizer -) 1 amp NEB Q6H PRN PRN Reason: DYSPEPSIA Stop: 09/15/18 10:39 Last Admin: 09/09/18 06:48 Dose: 1 amp Lorazepam (Ativan -) 2 mg PO Q8H PRN PRN Reason: ANXIETY Last Admin: 09/10/18 09:24 Dose: 2 mg Methylprednisolone Sodium Succinate (Solu-Medrol -) 60 mg IVPUSH Q6H-IV [facility] Last Admin: 09/10/18 09:23 Dose: 60 mg Senna/Docusate Sodium (Pericolace -) 2 tablet PO HS PRN PRN Reason: CONSTIPATION Tramadol HCl (Ultram -) 50 mg PO Q8H PRN PRN Reason: PAIN LEVEL 6-10 Last Admin: 09/09/18 02:20 Dose: 50 mg - Objective Vital Signs: Vital Signs Temperature 97.9 F 09/10/18 02:35 Pulse Rate 69 09/10/18 06:00 Respiratory Rate 20 09/10/18 06:00 Blood Pressure 131/74 09/10/18 06:00 O2 Sat by Pulse Oximetry (%) 96 09/10/18 01:08 Constitutional: Yes: Well Nourished, Calm Eyes: Yes: WNL HENT: Yes: WNL Neck: Yes: WNL Cardiovascular: Yes: Regular Rate and Rhythm, S1, S2 Respiratory: Yes: Rhonchi (SCATTERED DORON RHONCHI) Gastrointestinal: Yes: Normal Bowel Sounds, Soft Extremities: Yes: WNL Edema: No Labs: CBC, BMP 09/09/18 05:30 09/09/18 05:30 Problem List - Problems (1) Hemoptysis Code(s): R04.2 - HEMOPTYSIS (2) Pneumonia Code(s): J18.9 - PNEUMONIA, UNSPECIFIED ORGANISM Qualifiers: (3) Productive cough Code(s): R05 - COUGH (4) SOB (shortness of breath) Code(s): R06.02 - SHORTNESS OF BREATH (5) Head injury Code(s): S09.90XA - UNSPECIFIED INJURY OF HEAD, INITIAL ENCOUNTER Qualifiers: Encounter type: initial encounter Qualified Code(s): S09.90XA - Unspecified injury of head, initial encounter (6) Adult ADHD (attention deficit hyperactivity disorder) Code(s): F90.0 - ATTN-DEFCT HYPERACTIVITY DISORDER, PREDOM INATTENTIVE TYPE (7) Bronchiectasis Code(s): J47.9 - BRONCHIECTASIS, UNCOMPLICATED (8) Hyperlipidemia Code(s): E78.5 - HYPERLIPIDEMIA, UNSPECIFIED (9) Hypertension Code(s): I10 - ESSENTIAL (PRIMARY) HYPERTENSION Assessment/Plan IMP PNEUMONIA SUPERIMPOSED ON CHRONIC LUNG DISEASE ASTHMA/BRONCHIECTASIS/ILD SUPPLEMENTAL O2 HEMOPTYSIS TRAUMATIC BRAIN INJURY HTN HLD ATTENTION DEFICIT DISORDER PLAN IV ABX INHALED BROCHODILATORS CONTINUE STEROIDS SAME DOSE QUANTIFY HEMOPTYSIS F/U CHEST X-RAYS TRANSFER TO TELEMETRY FOR CLOSER MONITORING DR SEO Problem List - Problems (1) Hemoptysis Code(s): R04.2 - HEMOPTYSIS (2) Pneumonia Code(s): J18.9 - PNEUMONIA, UNSPECIFIED ORGANISM Qualifiers: (3) Productive cough Code(s): R05 - COUGH (4) SOB (shortness of breath) Code(s): R06.02 - SHORTNESS OF BREATH (5) Head injury Code(s): S09.90XA - UNSPECIFIED INJURY OF HEAD, INITIAL ENCOUNTER Qualifiers: Encounter type: initial encounter Qualified Code(s): S09.90XA - Unspecified injury of head, initial encounter (6) Adult ADHD (attention deficit hyperactivity disorder) Code(s): F90.0 - ATTN-DEFCT HYPERACTIVITY DISORDER, PREDOM INATTENTIVE TYPE (7) Bronchiectasis Code(s): J47.9 - BRONCHIECTASIS, UNCOMPLICATED (8) Hyperlipidemia Code(s): E78.5 - HYPERLIPIDEMIA, UNSPECIFIED (9) Hypertension Code(s): I10 - ESSENTIAL (PRIMARY) HYPERTENSION
[2018-09-10] MEDS ORDERED: SUMAtriptan SUCCINATE 50 MG TABLET PO ONE ×2 (11:11→21:45)
--- NOTE | 2018-09-10 11:34 | PN ---
Progress Note (short form) - Note Progress Note: c/o SALAS, states he has SALAS daily and only resolved iwth imitrex. no change in nature from his SALAS. also worsening hemoptysis. denies CP, fever, chills, N/V/C/D , blurred vision Current Medications Generic Name Dose Route Start Last Admin Trade Name Freq PRN Reason Stop Dose Admin Acetaminophen 650 mg 09/07/18 22:10 09/09/18 00:20 Tylenol - PO 650 mg Q6H PRN Administration FEVER Al Hydroxide/Mg Hydroxide 30 ml 09/09/18 22:21 Mylanta Oral Suspension - PO Q6H PRN DYSPEPSIA Albuterol Sulfate 1 amp 09/07/18 22:10 09/09/18 06:48 Ventolin 0.083% Nebulizer Soln - NEB 1 amp Q6H PRN Administration SHORT OF BREATH/WHEEZING Albuterol Sulfate 1 amp 09/08/18 08:00 09/10/18 07:42 Ventolin 0.083% Nebulizer Soln - NEB 1 amp RQID [facility] Administration Amlodipine Besylate 10 mg 09/08/18 10:00 09/10/18 09:23 Norvasc - PO 10 mg DAILY [facility] Administration Artificial Tears 1 drop 09/09/18 22:21 Artificial Tears OU Q6H PRN DRY EYES Aspirin 81 mg 09/08/18 10:00 09/10/18 09:22 Asa - PO 81 mg DAILY [facility] Administration Atorvastatin Calcium 20 mg 09/08/18 22:00 09/09/18 23:57 Lipitor - PO 20 mg HS [facility] Administration Budesonide/Formoterol Fumarate 2 puff 09/07/18 22:30 09/10/18 09:26 Symbicort 160/4.5mcg - IH 2 puff BID [facility] Administration Clonidine 0.2 mg 09/08/18 10:00 09/10/18 09:22 Catapres - PO 0.2 mg QID [facility] Administration Docusate Sodium 100 mg 09/08/18 16:36 09/09/18 13:44 Colace - PO 100 mg Q12H PRN Administration CONSTIPATION Doxepin HCl 75 mg 09/08/18 22:00 09/09/18 23:58 Sinequan - PO 75 mg HS [facility] Administration Enoxaparin Sodium 40 mg 09/08/18 10:00 09/10/18 09:23 Lovenox - SQ 40 mg DAILY [facility] Administration Guaifenesin 10 ml 09/07/18 22:10 09/10/18 07:30 Robitussin Dm - PO 10 ml Q4H PRN Administration COUGH Piperacillin Sod/Tazobactam 50 mls @ 100 mls/hr 09/08/18 02:00 09/10/18 09:25 Sod 3.375 gm/ Dextrose IVPB 100 mls/hr Q8H-IV [facility] Administration Protocol Ipratropium [place] 1 amp 09/08/18 10:39 09/09/18 06:48 Atrovent 0.02% Nebulizer - NEB 09/15/18 10:39 1 amp Q6H PRN Administration DYSPEPSIA Lorazepam 2 mg 09/09/18 12:59 09/10/18 09:24 Ativan - PO 2 mg Q8H PRN Administration ANXIETY Methylprednisolone Sodium Succinate 60 mg 09/08/18 03:00 09/10/18 09:23 Solu-Medrol - IVPUSH 60 mg Q6H-IV [facility] Administration Senna/Docusate Sodium 2 tablet 09/08/18 16:36 Pericolace - PO HS PRN CONSTIPATION Tramadol HCl 50 mg 09/08/18 16:15 09/09/18 02:20 Ultram - PO 50 mg Q8H PRN Administration PAIN LEVEL 6-10 Last Vital Signs Temp Pulse Resp BP Pulse Ox 97.9 F 69 20 131/74 96 09/10/18 02:35 09/10/18 06:00 09/10/18 06:00 09/10/18 06:00 09/10/18 01:08 General anxious, CV S1 S2 RRR no murmur/rub/gallop lungs coarse rhonchi, scattered wheezing Abdomen soft NT/ND Extremities no pedal edema CBCD WBC 21.9 K/mm3 (4.0-10.0) H 09/09/18 05:30 RBC 3.89 M/mm3 (4.00-5.60) L 09/09/18 05:30 Hgb 10.6 GM/dL (11.7-16.9) L 09/09/18 05:30 Hct 32.4 % (35.4-49) L 09/09/18 05:30 MCV 83.4 fl (80-96) 09/09/18 05:30 MCHC 32.8 g/dl (32.0-35.9) 09/09/18 05:30 RDW 14.4 % (11.9-15.9) 09/09/18 05:30 Plt Count 307 K/MM3 (134-434) 09/09/18 05:30 MPV 8.8 fl (7.5-11.1) 09/09/18 05:30 CMP Sodium 140 mmol/L (136-145) 09/09/18 05:30 Potassium 3.5 mmol/L (3.5-5.1) 09/09/18 05:30 Chloride 106 mmol/L (98-107) 09/09/18 05:30 Carbon Dioxide 24 mmol/L (21-32) 09/09/18 05:30 Anion Gap 10 MMOL/L (8-16) 09/09/18 05:30 BUN 22 mg/dL (7-18) H 09/09/18 05:30 Creatinine 0.8 mg/dL (0.55-1.3) 09/09/18 05:30 Creat Clearance w eGFR > 60 (>60) 09/09/18 05:30 Calcium 8.0 mg/dL (8.5-10.1) L 09/09/18 05:30 Total Bilirubin 0.4 mg/dL (0.2-1) 09/09/18 05:30 AST 43 U/L (15-37) H 09/09/18 05:30 ALT 69 U/L (13-61) H 09/09/18 05:30 Alkaline Phosphatase 68 U/L (45-117) 09/09/18 05:30 Total Protein 6.0 g/dl (6.4-8.2) L 09/09/18 05:30 Albumin 2.5 g/dl (3.4-5.0) L 09/09/18 05:30 Assessment and Plan: 68 year old man with a history of HTN, hyperlipidemia, asthma, chronic bronchiectasis, ADD, anxiety, TBI who presented to the ED with cough and SOB and progressively worsening hemoptysis. 1. Acute hypoxic respiratory failure secondary to exacerbation of chronic bronchiectasis vs asthma- saturating 94% on RA. cont solumedrol 60mg Q6H, inhalers, nebs. bipap prn. pulmonar on board 2. Hemopytsis- gross hemoptysis noted. will check CT chest with contrast as malignancy needs to be r/o. CT without noted which was not revealing. denies any TB contact/travel to endemic country/has had neg PPD in past but can not recall when it was last done. 3. PNA- on zosyn day 3. ID on board. will cont abx at this time 4. SALAS- chronic in nature. seeing a specialist at the moment as per pt. should discuss prophylactic measures if he has daily SALAS. imitrex prn 5. Anxiety- ativan prn 6. Dyslipidemia- statin 7. HTN- cont home meds 8. h/o TBI 9. DVT ppx- hep sq Visit type - Emergency Visit Emergency Visit: Yes ED Registration Date: 09/06/18 Care time: The patient presented to the Emergency Department on the above date and was hospitalized for further evaluation of their emergent condition. - New Patient This patient is new to me today: Yes Date on this admission: 09/10/18 - Critical Care Critical Care patient: No - Discharge Referral Referred to [facility] Med P.C.: No
--- NOTE | 2018-09-10 11:45 | PN ---
Progress Note, Physician - Current Medication List Current Medications: Active Medications Acetaminophen (Tylenol -) 650 mg PO Q6H PRN PRN Reason: FEVER Last Admin: 09/09/18 00:20 Dose: 650 mg Al Hydroxide/Mg Hydroxide (Mylanta Oral Suspension -) 30 ml PO Q6H PRN PRN Reason: DYSPEPSIA Albuterol Sulfate (Ventolin 0.083% Nebulizer Soln -) 1 amp NEB Q6H PRN PRN Reason: SHORT OF BREATH/WHEEZING Last Admin: 09/09/18 06:48 Dose: 1 amp Albuterol Sulfate (Ventolin 0.083% Nebulizer Soln -) 1 amp NEB RQID [facility] Last Admin: 09/10/18 07:42 Dose: 1 amp Amlodipine Besylate (Norvasc -) 10 mg PO DAILY [facility] Last Admin: 09/10/18 09:23 Dose: 10 mg Artificial Tears (Artificial Tears) 1 drop OU Q6H PRN PRN Reason: DRY EYES Aspirin (Asa -) 81 mg PO DAILY [facility] Last Admin: 09/10/18 09:22 Dose: 81 mg Atorvastatin Calcium (Lipitor -) 20 mg PO HS [facility] Last Admin: 09/09/18 23:57 Dose: 20 mg Budesonide/Formoterol Fumarate (Symbicort 160/4.5mcg -) 2 puff IH BID [facility] Last Admin: 09/10/18 09:26 Dose: 2 puff Clonidine (Catapres -) 0.2 mg PO QID [facility] Last Admin: 09/10/18 09:22 Dose: 0.2 mg Docusate Sodium (Colace -) 100 mg PO Q12H PRN PRN Reason: CONSTIPATION Last Admin: 09/09/18 13:44 Dose: 100 mg Doxepin HCl (Sinequan -) 75 mg PO HS [facility] Last Admin: 09/09/18 23:58 Dose: 75 mg Enoxaparin Sodium (Lovenox -) 40 mg SQ DAILY [facility] Last Admin: 09/10/18 09:23 Dose: 40 mg Guaifenesin (Robitussin Dm -) 10 ml PO Q4H PRN PRN Reason: COUGH Last Admin: 09/10/18 07:30 Dose: 10 ml Piperacillin Sod/Tazobactam (Sod 3.375 gm/ Dextrose) 50 mls @ 100 mls/hr IVPB Q8H-IV [facility]; Protocol Last Admin: 09/10/18 09:25 Dose: 100 mls/hr Ipratropium [place] (Atrovent 0.02% Nebulizer -) 1 amp NEB Q6H PRN PRN Reason: DYSPEPSIA Stop: 09/15/18 10:39 Last Admin: 09/09/18 06:48 Dose: 1 amp Lorazepam (Ativan -) 2 mg PO Q8H PRN PRN Reason: ANXIETY Last Admin: 09/10/18 09:24 Dose: 2 mg Methylprednisolone Sodium Succinate (Solu-Medrol -) 60 mg IVPUSH Q6H-IV [facility] Last Admin: 09/10/18 09:23 Dose: 60 mg Senna/Docusate Sodium (Pericolace -) 2 tablet PO HS PRN PRN Reason: CONSTIPATION Tramadol HCl (Ultram -) 50 mg PO Q8H PRN PRN Reason: PAIN LEVEL 6-10 Last Admin: 09/09/18 02:20 Dose: 50 mg - Objective Vital Signs: Vital Signs Temperature 97.9 F 09/10/18 02:35 Pulse Rate 69 09/10/18 06:00 Respiratory Rate 20 09/10/18 06:00 Blood Pressure 131/74 09/10/18 06:00 O2 Sat by Pulse Oximetry (%) 96 09/10/18 01:08 Labs: CBC, BMP 09/09/18 05:30 09/09/18 05:30
[2018-09-10 14:49] LABS: HEMATOCRIT 33.9 % (35.4-49); HEMOGLOBIN 11.3 GM/dL (11.7-16.9); MCH 27.5 pg (25.7-33.7); MCHC 33.4 g/dl (32.0-35.9); MEAN CELL VOLUME 82.4 fl (80-96); MEAN PLT VOLUME 8.5 fl (7.5-11.1); PLATELET COUNT 383 K/MM3 (134-434); RBC 4.12 M/mm3 (4.00-5.60); RDW 14.3 % (11.9-15.9); WHITE BLOOD COUNT 19.9 K/mm3 (4.0-10.0)
[2018-09-10] MEDS ORDERED: PT OWN MED DRAWER 7, Y5N ONE (21:54)
[2018-09-10] MEDS: ATORVASTATIN CA 20 MG TABLET (FP) PO SCH (21:56)
[2018-09-10] MEDS: DOXEPIN HCL 25 MG CAPSULE PO SCH (21:56)
[2018-09-10] MEDS: IPRATROPIUM BR 0.02% 0.5 MG/2.5 ML VIAL.NEB. NEB PRN (23:19)
[2018-09-11] MEDS: guaiFENesin/D-METHORPHAN HB 10 ML UNIT-DOSE CUPS PO PRN ×2 (00:34→06:12)
[2018-09-11] MEDS ORDERED: PIPERACILLIN/TAZOBACTAM 3.375 GM VIAL IVPB ONE ×3 (01:32→16:44)
[2018-09-11] MEDS ORDERED: DEXTROSE 5%-WATER - 50 ML IVPB ONE ×3 (01:33→16:44)
[2018-09-11] MEDS: PIPERACILLIN/TAZOB 3.375 GM 3.375 GM in DEXTROSE 5%-WATER - 50 ML IVPB SCH ×3 (01:43→17:25)
[2018-09-11] MEDS: methylPREDNISolone NA SUCC 40 MG/1 ML VIAL IVPUSH SCH ×4 (02:30→21:21)
[2018-09-11] MEDS: ALBUTEROL SO4 0.083% IH SOL 2.5 MG/3 ML VIAL.NEB. NEB PRN (06:24)
[2018-09-11] MEDS: ALBUTEROL SO4 0.083% IH SOL 2.5 MG/3 ML VIAL.NEB. NEB SCH ×4 (07:36→20:38)
--- NOTE | 2018-09-11 08:08 | PN ---
Progress Note, Physician Chief Complaint: Pt A&Ox3; remains on Bipap; no chest pain; +dyspnea on minimal exertion. History of Present Illness: This is a 67 year old white male with PMHx traumatic brain injury, attention deficit disorder(on adderal), asthma/bronchiectasis (on albuterol and advair), hypertension (on amlodipine) and hyperlipidemia who presents with 2 days of SOB , productive cough of yellow sputum, lightheadedness and anxiety. Pt also reported he had 1 episode of bloody sputum and fever with temperature maximum of 102. He denied chest pain, headache, focal weakness/numbness, abdominal pain ,nausea, vomiting or diarrhea. In the ER he had wheezing and crackles. He was treated with duonebulizers , IV antibiotics with one dosage of IV Azithromycin 500 mg , ceftriaxone 1 gm and methylprednisolone 125 mg. He had a normal ABG, initially was placed on a bipap machine and weaned off. Labs notable for a normal WBC and lactic acid level, BNP 2157. Influenzae A and B were negative. He was admitted for further medical management. Pt denies cigarettes. 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 - Current Medication List Current Medications: Active Medications Acetaminophen (Tylenol -) 650 mg PO Q6H PRN PRN Reason: FEVER Last Admin: 09/09/18 00:20 Dose: 650 mg Al Hydroxide/Mg Hydroxide (Mylanta Oral Suspension -) 30 ml PO Q6H PRN PRN Reason: DYSPEPSIA Last Admin: 09/10/18 20:41 Dose: 30 ml Albuterol Sulfate (Ventolin 0.083% Nebulizer Soln -) 1 amp NEB Q6H PRN PRN Reason: SHORT OF BREATH/WHEEZING Last Admin: 09/11/18 06:24 Dose: 1 amp Albuterol Sulfate (Ventolin 0.083% Nebulizer Soln -) 1 amp NEB RQID [facility] Last Admin: 09/11/18 07:36 Dose: 1 amp Amlodipine Besylate (Norvasc -) 10 mg PO DAILY [facility] Last Admin: 02/15/19 09:23 Dose: 10 mg Artificial Tears (Artificial Tears) 1 drop OU Q6H PRN PRN Reason: DRY EYES Aspirin (Asa -) 81 mg PO DAILY [facility] Last Admin: 09/10/18 09:22 Dose: 81 mg Atorvastatin Calcium (Lipitor -) 20 mg PO HS [facility] Last Admin: 09/10/18 21:56 Dose: 20 mg Budesonide/Formoterol Fumarate (Symbicort 160/4.5mcg -) 2 puff IH BID [facility] Last Admin: 09/10/18 21:59 Dose: 2 puff Clonidine (Catapres -) 0.2 mg PO QID [facility] Last Admin: 09/10/18 21:56 Dose: 0.2 mg Docusate Sodium (Colace -) 100 mg PO Q12H PRN PRN Reason: CONSTIPATION Last Admin: 09/09/18 13:44 Dose: 100 mg Doxepin HCl (Sinequan -) 75 mg PO HS [facility] Last Admin: 09/10/18 21:56 Dose: 75 mg Enoxaparin Sodium (Lovenox -) 40 mg SQ DAILY [facility] Last Admin: 09/10/18 09:23 Dose: 40 mg Guaifenesin (Robitussin Dm -) 10 ml PO Q4H PRN PRN Reason: COUGH Last Admin: 09/11/18 06:12 Dose: 10 ml Piperacillin Sod/Tazobactam (Sod 3.375 gm/ Dextrose) 50 mls @ 100 mls/hr IVPB Q8H-IV [facility]; Protocol Last Admin: 09/11/18 01:43 Dose: 100 mls/hr Ipratropium [place] (Atrovent 0.02% Nebulizer -) 1 amp NEB Q6H PRN PRN Reason: DYSPEPSIA Stop: 09/15/18 10:39 Last Admin: 09/10/18 23:19 Dose: 1 amp Lorazepam (Ativan -) 2 mg PO Q8H PRN PRN Reason: ANXIETY Last Admin: 09/10/18 21:56 Dose: 2 mg Methylprednisolone Sodium Succinate (Solu-Medrol -) 60 mg IVPUSH Q6H-IV [facility] Last Admin: 09/11/18 02:30 Dose: 60 mg Senna/Docusate Sodium (Pericolace -) 2 tablet PO HS PRN PRN Reason: CONSTIPATION Tramadol HCl (Ultram -) 50 mg PO Q8H PRN PRN Reason: PAIN LEVEL 6-10 Last Admin: 09/09/18 02:20 Dose: 50 mg - Objective Vital Signs: Vital Signs Temperature 97.5 F L 09/11/18 01:54 Pulse Rate 75 09/11/18 06:00 Respiratory Rate 18 09/11/18 06:00 Blood Pressure 129/62 09/11/18 06:00 O2 Sat by Pulse Oximetry (%) 94 L 09/10/18 21:00 Labs: CBC, BMP 09/10/18 14:33 09/09/18 05:30 Problem List - Problems (1) Hemoptysis Assessment/Plan: Pt says he noticed blood at times in phlegm. Hb 11.8-->10.6-->11.3 since admission several days ago. Code(s): R04.2 - HEMOPTYSIS (2) Pneumonia Assessment/Plan: on antibiotics per ID. Code(s): J18.9 - PNEUMONIA, UNSPECIFIED ORGANISM Qualifiers: (3) COPD with acute bronchitis Assessment/Plan: On BIpap, bronchodilators, steroids IV, antibotics. Code(s): J44.0 - CHRONIC OBSTRUCTIVE PULMON DISEASE W ACUTE LOWER RESP INFCT (4) Head injury Code(s): S09.90XA - UNSPECIFIED INJURY OF HEAD, INITIAL ENCOUNTER Qualifiers: Encounter type: initial encounter Qualified Code(s): S09.90XA - Unspecified injury of head, initial encounter (5) Adult ADHD (attention deficit hyperactivity disorder) Code(s): F90.0 - ATTN-DEFCT HYPERACTIVITY DISORDER, PREDOM INATTENTIVE TYPE (6) Bronchiectasis Assessment/Plan: by hx; increasing bilateral interstitial changes on CTs f/u with metaphysicist. For CT chest. Code(s): J47.9 - BRONCHIECTASIS, UNCOMPLICATED (7) Hyperlipidemia Code(s): E78.5 - HYPERLIPIDEMIA, UNSPECIFIED (8) Hypertension Assessment/Plan: on clonidine and amlodipine. ECHO: limited study (recommend repeat when pt better able to comply with body positioning for potentially better views): probably normal LVEF and RVEF; mildly elevated RA pressure. Code(s): I10 - ESSENTIAL (PRIMARY) HYPERTENSION (9) [place] cardiac risk >20% in next 10 years Assessment/Plan: Pt denies ever having had a stress test or coronary angiogram. Coronary artery evaluation when pulmonary status stable. Code(s): Z91.89 - OTH PERSONAL RISK FACTORS, NOT ELSEWHERE CLASSIFIED (10) Hiatal hernia Assessment/Plan: moderate (by CT scan). Code(s): K44.9 - DIAPHRAGMATIC HERNIA WITHOUT OBSTRUCTION OR GANGRENE (11) Diastolic CHF Assessment/Plan: ECHO: probably normal LVEF. Repeat study once pt's pulmonary status has improved and he is better able to comply with body position changes that may allow better acoustic windows for LVEF, valve evaluation. Code(s): I50.30 - UNSPECIFIED DIASTOLIC (CONGESTIVE) HEART FAILURE
[2018-09-11] MEDS: ACETAMINOPHEN 325 MG TABLET (FP) PO PRN (08:31)
--- NOTE | 2018-09-11 09:44 | PN ---
Progress Note, Physician Chief Complaint: Coverage for [employer] No CP Still coughing No chills - Current Medication List Current Medications: Active Medications Acetaminophen (Tylenol -) 650 mg PO Q6H PRN PRN Reason: FEVER Last Admin: 09/11/18 08:31 Dose: 650 mg Al Hydroxide/Mg Hydroxide (Mylanta Oral Suspension -) 30 ml PO Q6H PRN PRN Reason: DYSPEPSIA Last Admin: 09/10/18 20:41 Dose: 30 ml Albuterol Sulfate (Ventolin 0.083% Nebulizer Soln -) 1 amp NEB Q6H PRN PRN Reason: SHORT OF BREATH/WHEEZING Last Admin: 09/11/18 06:24 Dose: 1 amp Albuterol Sulfate (Ventolin 0.083% Nebulizer Soln -) 1 amp NEB RQID [facility] Last Admin: 09/11/18 07:36 Dose: 1 amp Amlodipine Besylate (Norvasc -) 10 mg PO DAILY [facility] Last Admin: 09/10/18 09:23 Dose: 10 mg Artificial Tears (Artificial Tears) 1 drop OU Q6H PRN PRN Reason: DRY EYES Aspirin (Asa -) 81 mg PO DAILY [facility] Last Admin: 09/10/18 09:22 Dose: 81 mg Atorvastatin Calcium (Lipitor -) 20 mg PO HS [facility] Last Admin: 09/10/18 21:56 Dose: 20 mg Budesonide/Formoterol Fumarate (Symbicort 160/4.5mcg -) 2 puff IH BID [facility] Last Admin: 09/10/18 21:59 Dose: 2 puff Clonidine (Catapres -) 0.2 mg PO QID [facility] Last Admin: 09/10/18 21:56 Dose: 0.2 mg Docusate Sodium (Colace -) 100 mg PO Q12H PRN PRN Reason: CONSTIPATION Last Admin: 09/09/18 13:44 Dose: 100 mg Doxepin HCl (Sinequan -) 75 mg PO HS [facility] Last Admin: 09/10/18 21:56 Dose: 75 mg Enoxaparin Sodium (Lovenox -) 40 mg SQ DAILY [facility] Last Admin: 09/10/18 09:23 Dose: 40 mg Guaifenesin (Robitussin Dm -) 10 ml PO Q4H PRN PRN Reason: COUGH Last Admin: 09/11/18 06:12 Dose: 10 ml Piperacillin Sod/Tazobactam (Sod 3.375 gm/ Dextrose) 50 mls @ 100 mls/hr IVPB Q8H-IV [facility]; Protocol Last Admin: 09/11/18 01:43 Dose: 100 mls/hr Ipratropium [place] (Atrovent 0.02% Nebulizer -) 1 amp NEB Q6H PRN PRN Reason: DYSPEPSIA Stop: 09/15/18 10:39 Last Admin: 09/10/18 23:19 Dose: 1 amp Lorazepam (Ativan -) 2 mg PO Q8H PRN PRN Reason: ANXIETY Last Admin: 09/10/18 21:56 Dose: 2 mg Methylprednisolone Sodium Succinate (Solu-Medrol -) 60 mg IVPUSH Q6H-IV [facility] Last Admin: 09/11/18 02:30 Dose: 60 mg Senna/Docusate Sodium (Pericolace -) 2 tablet PO HS PRN PRN Reason: CONSTIPATION Tramadol HCl (Ultram -) 50 mg PO Q8H PRN PRN Reason: PAIN LEVEL 6-10 Last Admin: 09/09/18 02:20 Dose: 50 mg - Objective Vital Signs: Vital Signs Temperature 97.5 F L 09/11/18 01:54 Pulse Rate 75 09/11/18 06:00 Respiratory Rate 18 09/11/18 06:00 Blood Pressure 129/62 09/11/18 06:00 O2 Sat by Pulse Oximetry (%) 94 L 09/10/18 21:00 Constitutional: Yes: No Distress Cardiovascular: Yes: Regular Rate and Rhythm Respiratory: Yes: Rhonchi Gastrointestinal: Yes: Soft Edema: No Neurological: Yes: Alert, Oriented Labs: CBC, BMP 09/10/18 14:33 09/09/18 05:30 Microbiology 09/06/18 14:20 Blood - Peripheral Venous Blood Culture - Preliminary NO GROWTH OBTAINED AFTER 96 HOURS, INCUBATION TO CONTINUE FOR 1 DAYS. 09/06/18 14:04 Blood - Peripheral Venous Blood Culture - Preliminary NO GROWTH OBTAINED AFTER 96 HOURS, INCUBATION TO CONTINUE FOR 1 DAYS. Laboratory Tests 09/09/18 09/10/18 05:30 14:33 WBC 19.9 H Hgb 11.3 L Plt Count 383 D Sodium 140 Potassium 3.5 BUN 22 H Creatinine 0.8 - ....Imaging EKG: Image Reviewed (NSR) Assessment/Plan IMP: PNA Asthma/ Bronchiectasis REC: 1. Supplimental O2 2. Abx and steroid taper as per Pulm 3. DVT prophylaxis Currently stable from CV standpoint [facility]
[2018-09-11] MEDS: cloNIDine HCL 0.1 MG TABLET PO SCH ×4 (09:46→21:22)
[2018-09-11] MEDS: ENOXAPARIN NA (PORCINE) 40 MG/0.4 ML DISP.SYRIN SQ SCH (09:46)
[2018-09-11] MEDS: amLODIPine BESYLATE 10 MG TABLET (FP) PO SCH (09:46)
[2018-09-11] MEDS: ASPIRIN 81 MG CHEWABLE TABLETS PO SCH (09:46)
[2018-09-11] MEDS: ARTIFICIAL TEARS (POLYVINYL ALCOHOL) OPTH DROPS OU PRN (09:47)
[2018-09-11] MEDS: BUDESONIDE/FORMETEROL FUMARATE 160/4.5 mcg INHALER IH SCH ×2 (09:47→22:00)
[2018-09-11] MEDS: LORazepam 1 MG TABLET PO PRN (09:54)
[2018-09-11] MEDS ORDERED: PT OWN MED DRAWER 7, Y5N ONE (10:11)
--- NOTE | 2018-09-11 13:25 | PN ---
Progress Note, Physician History of Present Illness: Pt seen and examined. Events noted. Pt states he is feeling better overall. Less SOB, hemoptysis improving. Remains afebrile. - Current Medication List Current Medications: Active Medications Acetaminophen (Tylenol -) 650 mg PO Q6H PRN PRN Reason: FEVER Last Admin: 09/11/18 08:31 Dose: 650 mg Al Hydroxide/Mg Hydroxide (Mylanta Oral Suspension -) 30 ml PO Q6H PRN PRN Reason: DYSPEPSIA Last Admin: 09/10/18 20:41 Dose: 30 ml Albuterol Sulfate (Ventolin 0.083% Nebulizer Soln -) 1 amp NEB Q6H PRN PRN Reason: SHORT OF BREATH/WHEEZING Last Admin: 09/11/18 06:24 Dose: 1 amp Albuterol Sulfate (Ventolin 0.083% Nebulizer Soln -) 1 amp NEB RQID [facility] Last Admin: 09/11/18 12:01 Dose: 1 amp Amlodipine Besylate (Norvasc -) 10 mg PO DAILY [facility] Last Admin: 09/11/18 09:46 Dose: 10 mg Artificial Tears (Artificial Tears) 1 drop OU Q6H PRN PRN Reason: DRY EYES Last Admin: 09/11/18 09:47 Dose: 1 drop Aspirin (Asa -) 81 mg PO DAILY [facility] Last Admin: 09/11/18 09:46 Dose: 81 mg Atorvastatin Calcium (Lipitor -) 20 mg PO HS [facility] Last Admin: 09/10/18 21:56 Dose: 20 mg Budesonide/Formoterol Fumarate (Symbicort 160/4.5mcg -) 2 puff IH BID [facility] Last Admin: 09/11/18 09:47 Dose: 2 puff Clonidine (Catapres -) 0.2 mg PO QID [facility] Last Admin: 09/11/18 09:46 Dose: 0.2 mg Docusate Sodium (Colace -) 100 mg PO Q12H PRN PRN Reason: CONSTIPATION Last Admin: 09/09/18 13:44 Dose: 100 mg Doxepin HCl (Sinequan -) 75 mg PO HS [facility] Last Admin: 09/10/18 21:56 Dose: 75 mg Enoxaparin Sodium (Lovenox -) 40 mg SQ DAILY [facility] Last Admin: 09/11/18 09:46 Dose: 40 mg Guaifenesin (Robitussin Dm -) 10 ml PO Q4H PRN PRN Reason: COUGH Last Admin: 09/11/18 06:12 Dose: 10 ml Piperacillin Sod/Tazobactam (Sod 3.375 gm/ Dextrose) 50 mls @ 100 mls/hr IVPB Q8H-IV [facility]; Protocol Last Admin: 09/11/18 09:46 Dose: 100 mls/hr Ipratropium [place] (Atrovent 0.02% Nebulizer -) 1 amp NEB Q6H PRN PRN Reason: DYSPEPSIA Stop: 09/15/18 10:39 Last Admin: 09/10/18 23:19 Dose: 1 amp Lorazepam (Ativan -) 2 mg PO Q8H PRN PRN Reason: ANXIETY Last Admin: 09/11/18 09:54 Dose: 2 mg Methylprednisolone Sodium Succinate (Solu-Medrol -) 60 mg IVPUSH Q6H-IV [facility] Last Admin: 09/11/18 09:45 Dose: 60 mg Senna/Docusate Sodium (Pericolace -) 2 tablet PO HS PRN PRN Reason: CONSTIPATION Tramadol HCl (Ultram -) 50 mg PO Q8H PRN PRN Reason: PAIN LEVEL 6-10 Last Admin: 09/09/18 02:20 Dose: 50 mg - Objective Vital Signs: Vital Signs Temperature 97.6 F 09/11/18 10:00 Pulse Rate 69 09/11/18 10:00 Respiratory Rate 18 09/11/18 10:00 Blood Pressure 140/86 09/11/18 10:00 O2 Sat by Pulse Oximetry (%) 96 09/11/18 10:42 Constitutional: Yes: No Distress, Calm Cardiovascular: Yes: Regular Rate and Rhythm Respiratory: Yes: Wheezes (minimal, bases) Gastrointestinal: Yes: Normal Bowel Sounds, Soft Extremities: Yes: WNL Integumentary: Yes: WNL Neurological: Yes: Alert Labs: CBC, BMP 09/10/18 14:33 09/09/18 05:30 Microbiology 09/06/18 14:04 Blood - Peripheral Venous Blood Culture - Preliminary NO GROWTH OBTAINED AFTER 96 HOURS, INCUBATION TO CONTINUE FOR 1 DAYS. 09/06/18 14:20 Blood - Peripheral Venous Blood Culture - Preliminary NO GROWTH OBTAINED AFTER 96 HOURS, INCUBATION TO CONTINUE FOR 1 DAYS. 09/08/18 17:00 Urine - Urine Clean Catch Urine Culture - Final NO GROWTH OBTAINED 09/06/18 21:35 Sputum - Expectorated Gram Stain - Final 09/06/18 21:35 Sputum - Expectorated Sputum Culture - Final NORMAL RESPIRATORY COLLEEN 09/07/18 15:20 Urine For Antigen Detection Legionella Antigen - Final 09/07/18 15:20 Urine For Antigen Detection Streptococcus pneumoniae Antigen (M - Final 09/06/18 16:02 Urine - Urine Clean Catch Urine Culture - Final NO GROWTH OBTAINED - ....Imaging Chest X-ray: Report Reviewed Cat Scan: Report Reviewed Problem List - Problems (1) Hemoptysis Code(s): R04.2 - HEMOPTYSIS (2) Pneumonia Code(s): J18.9 - PNEUMONIA, UNSPECIFIED ORGANISM Qualifiers: (3) SOB (shortness of breath) Code(s): R06.02 - SHORTNESS OF BREATH (4) Hyperlipidemia Code(s): E78.5 - HYPERLIPIDEMIA, UNSPECIFIED (5) Hypertension Code(s): I10 - ESSENTIAL (PRIMARY) HYPERTENSION Assessment/Plan PNA - new RAOUL opacity Hemoptysis Leukocytosis Chronic lung disease -- wbc elevated, possibly due to steroids but monitor closely. Slightly improved since yesterday. -- continue current antibiotic for now -- repeat cbc continue monitor closely
--- NOTE | 2018-09-11 14:17 | PN ---
Progress Note (short form) - Note Progress Note: PULMONARY Breathing better today. Off BiPAP. Vital Signs Period Temp Pulse Resp BP Sys/Walter Pulse Ox Last 24 Hr 97.5 F-98.3 F 62-80 18-20 116-140/62-86 94-96 Gen: less tachypneic Heart: RRR Lung: bilateral rhonchi Abd: soft, nontender Ext: no edema CBC, BMP 09/10/18 14:33 09/09/18 05:30 Active Medications Acetaminophen (Tylenol -) 650 mg PO Q6H PRN PRN Reason: FEVER Last Admin: 09/11/18 08:31 Dose: 650 mg Al Hydroxide/Mg Hydroxide (Mylanta Oral Suspension -) 30 ml PO Q6H PRN PRN Reason: DYSPEPSIA Last Admin: 09/10/18 20:41 Dose: 30 ml Albuterol Sulfate (Ventolin 0.083% Nebulizer Soln -) 1 amp NEB Q6H PRN PRN Reason: SHORT OF BREATH/WHEEZING Last Admin: 09/11/18 06:24 Dose: 1 amp Albuterol Sulfate (Ventolin 0.083% Nebulizer Soln -) 1 amp NEB RQID [facility] Last Admin: 09/11/18 12:01 Dose: 1 amp Amlodipine Besylate (Norvasc -) 10 mg PO DAILY [facility] Last Admin: 09/11/18 09:46 Dose: 10 mg Artificial Tears (Artificial Tears) 1 drop OU Q6H PRN PRN Reason: DRY EYES Last Admin: 09/11/18 09:47 Dose: 1 drop Aspirin (Asa -) 81 mg PO DAILY [facility] Last Admin: 09/11/18 09:46 Dose: 81 mg Atorvastatin Calcium (Lipitor -) 20 mg PO HS [facility] Last Admin: 09/10/18 21:56 Dose: 20 mg Budesonide/Formoterol Fumarate (Symbicort 160/4.5mcg -) 2 puff IH BID [facility] Last Admin: 09/11/18 09:47 Dose: 2 puff Clonidine (Catapres -) 0.2 mg PO QID [facility] Last Admin: 09/11/18 13:40 Dose: 0.2 mg Docusate Sodium (Colace -) 100 mg PO Q12H PRN PRN Reason: CONSTIPATION Last Admin: 09/09/18 13:44 Dose: 100 mg Doxepin HCl (Sinequan -) 75 mg PO HS [facility] Last Admin: 09/10/18 21:56 Dose: 75 mg Enoxaparin Sodium (Lovenox -) 40 mg SQ DAILY [facility] Last Admin: 09/11/18 09:46 Dose: 40 mg Guaifenesin (Robitussin Dm -) 10 ml PO Q4H PRN PRN Reason: COUGH Last Admin: 09/11/18 06:12 Dose: 10 ml Piperacillin Sod/Tazobactam (Sod 3.375 gm/ Dextrose) 50 mls @ 100 mls/hr IVPB Q8H-IV [facility]; Protocol Last Admin: 09/11/18 09:46 Dose: 100 mls/hr Ipratropium [place] (Atrovent 0.02% Nebulizer -) 1 amp NEB Q6H PRN PRN Reason: DYSPEPSIA Stop: 09/15/18 10:39 Last Admin: 09/10/18 23:19 Dose: 1 amp Lorazepam (Ativan -) 2 mg PO Q8H PRN PRN Reason: ANXIETY Last Admin: 09/11/18 09:54 Dose: 2 mg Methylprednisolone Sodium Succinate (Solu-Medrol -) 60 mg IVPUSH Q6H-IV [facility] Last Admin: 09/11/18 09:45 Dose: 60 mg Senna/Docusate Sodium (Pericolace -) 2 tablet PO HS PRN PRN Reason: CONSTIPATION Tramadol HCl (Ultram -) 50 mg PO Q8H PRN PRN Reason: PAIN LEVEL 6-10 Last Admin: 09/09/18 02:20 Dose: 50 mg A/P Pneumonia Acute Asthma vs Bronchiectasis Exacerbation Interstitial Lung Disease Hemoptysis h/o TBI HTN Hyperlipidemia - continue antibiotics - will decrease medrol to 40mg q6h - inhaled bronchodilators standing and PRN - O2 to keep SpO2 >90% - BiPAP as needed to assist in work of breathing - monitor hemoptysis - DVT prophylaxis
--- NOTE | 2018-09-11 18:20 | PN ---
Physical Exam: SUBJECTIVE: Patient seen and examined patient has no headache now he is feeling better He wanted his adderal and hospital pharmacy doesn't have it advised pt to get his home medications and will administer to him. OBJECTIVE: Vital Signs Period Temp Pulse Resp BP Sys/Walter Pulse Ox Last 24 Hr 97.5 F-98.3 F 62-89 18-20 116-141/62-86 94-96 GENERAL: The patient is awake, alert, and fully oriented, in no acute distress. HEAD: Normal with no signs of trauma. EYES: PERRL, extraocular movements intact, sclera anicteric, conjunctiva clear. No ptosis. ENT: Ears normal, nares patent, oropharynx clear without exudates, moist mucous membranes. NECK: Trachea midline, full range of motion, supple. LUNGS: Breath sounds equal, clear to auscultation bilaterally, no wheezes, no crackles, no accessory muscle use. HEART: Regular rate and rhythm, S1, S2 without murmur, rub or gallop. ABDOMEN: Soft, nontender, nondistended, normoactive bowel sounds, no guarding, no rebound, no hepatosplenomegaly, no masses. EXTREMITIES: 2+ pulses, warm, well-perfused, no edema. NEUROLOGICAL: Cranial nerves II through XII grossly intact. Normal speech, gait not observed. PSYCH: Normal mood, normal affect. SKIN: Warm, dry, normal turgor, no rashes or lesions noted Active Medications Generic Name Dose Route Start Last Admin Trade Name Freq PRN Reason Stop Dose Admin Acetaminophen 650 mg 09/07/18 22:10 09/11/18 08:31 Tylenol - PO 650 mg Q6H PRN Administration FEVER Al Hydroxide/Mg Hydroxide 30 ml 09/09/18 22:21 09/10/18 20:41 Mylanta Oral Suspension - PO 30 ml Q6H PRN Administration DYSPEPSIA Albuterol Sulfate 1 amp 09/07/18 22:10 09/11/18 06:24 Ventolin 0.083% Nebulizer Soln - NEB 1 amp Q6H PRN Administration SHORT OF BREATH/WHEEZING Albuterol Sulfate 1 amp 09/08/18 08:00 09/11/18 15:51 Ventolin 0.083% Nebulizer Soln - NEB 1 amp RQID [facility] Administration Amlodipine Besylate 10 mg 09/08/18 10:00 09/11/18 09:46 Norvasc - PO 10 mg DAILY [facility] Administration Artificial Tears 1 drop 09/09/18 22:21 09/11/18 09:47 Artificial Tears OU 1 drop Q6H PRN Administration DRY EYES Aspirin 81 mg 09/08/18 10:00 09/11/18 09:46 Asa - PO 81 mg DAILY [facility] Administration Atorvastatin Calcium 20 mg 09/08/18 22:00 09/10/18 21:56 Lipitor - PO 20 mg HS [facility] Administration Budesonide/Formoterol Fumarate 2 puff 09/07/18 22:30 09/11/18 09:47 Symbicort 160/4.5mcg - IH 2 puff BID [facility] Administration Clonidine 0.2 mg 09/08/18 10:00 09/11/18 17:25 Catapres - PO 0.2 mg QID [facility] Administration Docusate Sodium 100 mg 09/08/18 16:36 09/09/18 13:44 Colace - PO 100 mg Q12H PRN Administration CONSTIPATION Doxepin HCl 75 mg 09/08/18 22:00 09/10/18 21:56 Sinequan - PO 75 mg HS [facility] Administration Enoxaparin Sodium 40 mg 09/08/18 10:00 09/11/18 09:46 Lovenox - SQ 40 mg DAILY [facility] Administration Guaifenesin 10 ml 09/07/18 22:10 09/11/18 06:12 Robitussin Dm - PO 10 ml Q4H PRN Administration COUGH Piperacillin Sod/Tazobactam 50 mls @ 100 mls/hr 09/08/18 02:00 09/11/18 17:25 Sod 3.375 gm/ Dextrose IVPB 100 mls/hr Q8H-IV [facility] Administration Protocol Ipratropium [place] 1 amp 09/08/18 10:39 09/10/18 23:19 Atrovent 0.02% Nebulizer - NEB 09/15/18 10:39 1 amp Q6H PRN Administration DYSPEPSIA Lorazepam 2 mg 09/09/18 12:59 09/11/18 09:54 Ativan - PO 2 mg Q8H PRN Administration ANXIETY Methylprednisolone Sodium Succinate 40 mg 09/11/18 14:18 09/11/18 14:29 Solu-Medrol - IVPUSH 40 mg Q6H-IV [facility] Administration Senna/Docusate Sodium 2 tablet 09/08/18 16:36 Pericolace - PO HS PRN CONSTIPATION Tramadol HCl 50 mg 09/08/18 16:15 09/09/18 02:20 Ultram - PO 50 mg Q8H PRN Administration PAIN LEVEL 6-10 ASSESSMENT/PLAN: 68 year old man with a history of HTN, hyperlipidemia, asthma, chronic bronchiectasis, ADD, anxiety, TBI who presented to the ED with cough and SOB and progressively worsening hemoptysis. 1. Acute hypoxic respiratory failure secondary to exacerbation of chronic bronchiectasis vs asthma- saturating 94% on RA. cont solumedrol 60mg Q6H, inhalers, nebs. bipap prn. pulmonar f/u 2. Hemopytsis- today he is better , ct chest shows no mass but pna 3. PNA- on zosyn , will cont abx at this time 4. SALAS- chronic in nature. . imitrex prn 5. Anxiety- ativan prn 6. Dyslipidemia- statin 7. HTN- cont home meds\ Visit type - Emergency Visit Emergency Visit: Yes ED Registration Date: 09/06/18 Care time: The patient presented to the Emergency Department on the above date and was hospitalized for further evaluation of their emergent condition. - New Patient This patient is new to me today: Yes Date on this admission: 09/11/18 - Critical Care Critical Care patient: No - Discharge Referral Referred to [facility] Med P.C.: No
[2018-09-11] MEDS: ATORVASTATIN CA 20 MG TABLET (FP) PO SCH (21:22)
[2018-09-11] MEDS: DOXEPIN HCL 25 MG CAPSULE PO SCH (21:22)
[2018-09-12] MEDS: LORazepam 1 MG TABLET PO PRN ×2 (00:34→09:14)
[2018-09-12] MEDS ORDERED: PIPERACILLIN/TAZOBACTAM 3.375 GM VIAL IVPB ONE ×3 (01:47→16:49)
[2018-09-12] MEDS ORDERED: DEXTROSE 5%-WATER - 50 ML IVPB ONE ×3 (01:47→16:49)
[2018-09-12] MEDS: methylPREDNISolone NA SUCC 40 MG/1 ML VIAL IVPUSH SCH ×3 (01:59→17:43)
[2018-09-12] MEDS: ACETAMINOPHEN 325 MG TABLET (FP) PO PRN (02:01)
[2018-09-12] MEDS: PIPERACILLIN/TAZOB 3.375 GM 3.375 GM in DEXTROSE 5%-WATER - 50 ML IVPB SCH ×3 (02:03→17:43)
[2018-09-12] MEDS: ALBUTEROL SO4 0.083% IH SOL 2.5 MG/3 ML VIAL.NEB. NEB SCH ×4 (07:46→20:48)
[2018-09-12] MEDS: traMADol HCL 50 MG TABLET PO PRN (09:11)
[2018-09-12] MEDS: cloNIDine HCL 0.1 MG TABLET PO SCH ×4 (09:11→21:40)
[2018-09-12] MEDS: ASPIRIN 81 MG CHEWABLE TABLETS PO SCH (09:11)
[2018-09-12] MEDS: amLODIPine BESYLATE 10 MG TABLET (FP) PO SCH (09:11)
[2018-09-12] MEDS: ENOXAPARIN NA (PORCINE) 40 MG/0.4 ML DISP.SYRIN SQ SCH (09:15)
[2018-09-12] MEDS: ARTIFICIAL TEARS (POLYVINYL ALCOHOL) OPTH DROPS OU PRN (09:19)
[2018-09-12] MEDS: BUDESONIDE/FORMETEROL FUMARATE 160/4.5 mcg INHALER IH SCH ×2 (09:23→21:56)
--- NOTE | 2018-09-12 11:23 | PN ---
Progress Note, Physician Chief Complaint: feeling well History of Present Illness: BP well controlled - Current Medication List Current Medications: Active Medications Acetaminophen (Tylenol -) 650 mg PO Q6H PRN PRN Reason: FEVER Last Admin: 09/12/18 02:01 Dose: 650 mg Al Hydroxide/Mg Hydroxide (Mylanta Oral Suspension -) 30 ml PO Q6H PRN PRN Reason: DYSPEPSIA Last Admin: 09/10/18 20:41 Dose: 30 ml Albuterol Sulfate (Ventolin 0.083% Nebulizer Soln -) 1 amp NEB Q6H PRN PRN Reason: SHORT OF BREATH/WHEEZING Last Admin: 09/11/18 06:24 Dose: 1 amp Albuterol Sulfate (Ventolin 0.083% Nebulizer Soln -) 1 amp NEB RQID [facility] Last Admin: 09/12/18 07:46 Dose: 1 amp Amlodipine Besylate (Norvasc -) 10 mg PO DAILY [facility] Last Admin: 09/12/18 09:11 Dose: 10 mg Artificial Tears (Artificial Tears) 1 drop OU Q6H PRN PRN Reason: DRY EYES Last Admin: 09/12/18 09:19 Dose: 1 drop Aspirin (Asa -) 81 mg PO DAILY [facility] Last Admin: 09/12/18 09:11 Dose: 81 mg Atorvastatin Calcium (Lipitor -) 20 mg PO HS [facility] Last Admin: 09/11/18 21:22 Dose: 20 mg Budesonide/Formoterol Fumarate (Symbicort 160/4.5mcg -) 2 puff IH BID [facility] Last Admin: 09/12/18 09:23 Dose: 2 puff Clonidine (Catapres -) 0.2 mg PO QID [facility] Last Admin: 09/12/18 09:11 Dose: 0.2 mg Docusate Sodium (Colace -) 100 mg PO Q12H PRN PRN Reason: CONSTIPATION Last Admin: 09/09/18 13:44 Dose: 100 mg Doxepin HCl (Sinequan -) 75 mg PO HS [facility] Last Admin: 09/11/18 21:22 Dose: 75 mg Enoxaparin Sodium (Lovenox -) 40 mg SQ DAILY [facility] Last Admin: 09/12/18 09:15 Dose: 40 mg Guaifenesin (Robitussin Dm -) 10 ml PO Q4H PRN PRN Reason: COUGH Last Admin: 02/16/19 06:12 Dose: 10 ml Piperacillin Sod/Tazobactam (Sod 3.375 gm/ Dextrose) 50 mls @ 100 mls/hr IVPB Q8H-IV [facility]; Protocol Last Admin: 09/12/18 09:10 Dose: 100 mls/hr Ipratropium [place] (Atrovent 0.02% Nebulizer -) 1 amp NEB Q6H PRN PRN Reason: DYSPEPSIA Stop: 09/15/18 10:39 Last Admin: 09/10/18 23:19 Dose: 1 amp Lorazepam (Ativan -) 4 mg PO TID [facility] Methylprednisolone Sodium Succinate (Solu-Medrol -) 40 mg IVPUSH Q6H-IV [facility] Last Admin: 09/12/18 09:10 Dose: 40 mg Non-Formulary Medication (Patient's Own Med) 1 each PO TID [facility] Senna/Docusate Sodium (Pericolace -) 2 tablet PO HS PRN PRN Reason: CONSTIPATION Tramadol HCl (Ultram -) 50 mg PO Q8H PRN PRN Reason: PAIN LEVEL 6-10 Last Admin: 09/12/18 09:11 Dose: 50 mg - Objective Vital Signs: Vital Signs Temperature 98.6 F 09/11/18 22:00 Pulse Rate 78 09/12/18 08:37 Respiratory Rate 22 H 09/12/18 08:41 Blood Pressure 141/75 09/12/18 08:37 O2 Sat by Pulse Oximetry (%) 94 L 09/12/18 08:41 Constitutional: Yes: No Distress Cardiovascular: Yes: Regular Rate and Rhythm Respiratory: Yes: Rhonchi Gastrointestinal: Yes: Soft Edema: No Neurological: Yes: Alert Labs: CBC, BMP 09/10/18 14:33 09/09/18 05:30 - ....Imaging EKG: Image Reviewed (NSR) Assessment/Plan IMP: PNA Asthma/ Bronchiectasis HTN REC: 1. Supplimental O2 2. Abx and steroid taper as per Pulm 3. BP controlled 4. DVT prophylaxis Currently stable from CV standpoint Coverage for [employer]
[2018-09-12] MEDS: LORazepam 1 MG TABLET PO SCH ×3 (12:19→21:39)
--- NOTE | 2018-09-12 12:19 | PN ---
Progress Note (short form) - Note Progress Note: PULMONARY Breathing continues to improve. Off BiPAP. Vital Signs Period Temp Pulse Resp BP Sys/Walter Pulse Ox Last 24 Hr 98.1 F-98.6 F 78-89 20-23 139-151/71-79 93-95 Gen: less tachypneic Heart: RRR Lung: less rhonchi Abd: soft, nontender Ext: no edema CBC, BMP 09/10/18 14:33 09/09/18 05:30 Active Medications Acetaminophen (Tylenol -) 650 mg PO Q6H PRN PRN Reason: FEVER Last Admin: 09/12/18 02:01 Dose: 650 mg Al Hydroxide/Mg Hydroxide (Mylanta Oral Suspension -) 30 ml PO Q6H PRN PRN Reason: DYSPEPSIA Last Admin: 09/10/18 20:41 Dose: 30 ml Albuterol Sulfate (Ventolin 0.083% Nebulizer Soln -) 1 amp NEB Q6H PRN PRN Reason: SHORT OF BREATH/WHEEZING Last Admin: 09/11/18 06:24 Dose: 1 amp Albuterol Sulfate (Ventolin 0.083% Nebulizer Soln -) 1 amp NEB RQID [facility] Last Admin: 09/12/18 07:46 Dose: 1 amp Amlodipine Besylate (Norvasc -) 10 mg PO DAILY [facility] Last Admin: 09/12/18 09:11 Dose: 10 mg Artificial Tears (Artificial Tears) 1 drop OU Q6H PRN PRN Reason: DRY EYES Last Admin: 09/12/18 09:19 Dose: 1 drop Aspirin (Asa -) 81 mg PO DAILY [facility] Last Admin: 09/12/18 09:11 Dose: 81 mg Atorvastatin Calcium (Lipitor -) 20 mg PO HS [facility] Last Admin: 09/11/18 21:22 Dose: 20 mg Budesonide/Formoterol Fumarate (Symbicort 160/4.5mcg -) 2 puff IH BID [facility] Last Admin: 09/12/18 09:23 Dose: 2 puff Clonidine (Catapres -) 0.2 mg PO QID [facility] Last Admin: 09/12/18 09:11 Dose: 0.2 mg Docusate Sodium (Colace -) 100 mg PO Q12H PRN PRN Reason: CONSTIPATION Last Admin: 09/09/18 13:44 Dose: 100 mg Doxepin HCl (Sinequan -) 75 mg PO HS [facility] Last Admin: 09/11/18 21:22 Dose: 75 mg Enoxaparin Sodium (Lovenox -) 40 mg SQ DAILY [facility] Last Admin: 09/12/18 09:15 Dose: 40 mg Guaifenesin (Robitussin Dm -) 10 ml PO Q4H PRN PRN Reason: COUGH Last Admin: 09/11/18 06:12 Dose: 10 ml Piperacillin Sod/Tazobactam (Sod 3.375 gm/ Dextrose) 50 mls @ 100 mls/hr IVPB Q8H-IV [facility]; Protocol Last Admin: 09/12/18 09:10 Dose: 100 mls/hr Ipratropium [place] (Atrovent 0.02% Nebulizer -) 1 amp NEB Q6H PRN PRN Reason: DYSPEPSIA Stop: 09/15/18 10:39 Last Admin: 09/10/18 23:19 Dose: 1 amp Lorazepam (Ativan -) 4 mg PO TID [facility] Methylprednisolone Sodium Succinate (Solu-Medrol -) 40 mg IVPUSH Q6H-IV [facility] Last Admin: 09/12/18 09:10 Dose: 40 mg Non-Formulary Medication (Patient's Own Med) 1 each PO TID [facility] Senna/Docusate Sodium (Pericolace -) 2 tablet PO HS PRN PRN Reason: CONSTIPATION Tramadol HCl (Ultram -) 50 mg PO Q8H PRN PRN Reason: PAIN LEVEL 6-10 Last Admin: 09/12/18 09:11 Dose: 50 mg A/P Pneumonia Acute Asthma vs Bronchiectasis Exacerbation Interstitial Lung Disease Hemoptysis h/o TBI HTN Hyperlipidemia - continue antibiotics - will decrease medrol to 40mg q8h - inhaled bronchodilators standing and PRN - O2 to keep SpO2 >90% - BiPAP as needed to assist in work of breathing - monitor hemoptysis - DVT prophylaxis
[2018-09-12 12:55] LABS: HEMATOCRIT 36.8 % (35.4-49); HEMOGLOBIN 12.4 GM/dL (11.7-16.9); LYMPH % 4.8 % (8-40); MCHC 33.6 g/dl (32.0-35.9); MEAN CELL VOLUME 83.2 fl (80-96); MEAN PLT VOLUME 8.4 fl (7.5-11.1); MONO % 3.6 % (3.8-10.2); NEUT % 91.6 % (42.8-82.8); PLATELET COUNT 464 K/MM3 (134-434); RBC 4.43 M/mm3 (4.00-5.60); RDW 14.2 % (11.9-15.9); WHITE BLOOD COUNT 23.4 K/mm3 (4.0-10.0)
--- NOTE | 2018-09-12 13:28 | PN ---
Progress Note, Physician History of Present Illness: Pt states he feels well. Less sputum production. Remains afebrile however wbc trending up. Has no specific complaints. - Current Medication List Current Medications: Active Medications Acetaminophen (Tylenol -) 650 mg PO Q6H PRN PRN Reason: FEVER Last Admin: 09/12/18 02:01 Dose: 650 mg Al Hydroxide/Mg Hydroxide (Mylanta Oral Suspension -) 30 ml PO Q6H PRN PRN Reason: DYSPEPSIA Last Admin: 09/10/18 20:41 Dose: 30 ml Albuterol Sulfate (Ventolin 0.083% Nebulizer Soln -) 1 amp NEB Q6H PRN PRN Reason: SHORT OF BREATH/WHEEZING Last Admin: 09/11/18 06:24 Dose: 1 amp Albuterol Sulfate (Ventolin 0.083% Nebulizer Soln -) 1 amp NEB RQID [facility] Last Admin: 09/12/18 12:22 Dose: 1 amp Amlodipine Besylate (Norvasc -) 10 mg PO DAILY [facility] Last Admin: 09/12/18 09:11 Dose: 10 mg Artificial Tears (Artificial Tears) 1 drop OU Q6H PRN PRN Reason: DRY EYES Last Admin: 09/12/18 09:19 Dose: 1 drop Aspirin (Asa -) 81 mg PO DAILY [facility] Last Admin: 09/12/18 09:11 Dose: 81 mg Atorvastatin Calcium (Lipitor -) 20 mg PO HS [facility] Last Admin: 09/11/18 21:22 Dose: 20 mg Budesonide/Formoterol Fumarate (Symbicort 160/4.5mcg -) 2 puff IH BID [facility] Last Admin: 09/12/18 09:23 Dose: 2 puff Clonidine (Catapres -) 0.2 mg PO QID [facility] Last Admin: 09/12/18 09:11 Dose: 0.2 mg Docusate Sodium (Colace -) 100 mg PO Q12H PRN PRN Reason: CONSTIPATION Last Admin: 09/09/18 13:44 Dose: 100 mg Doxepin HCl (Sinequan -) 75 mg PO HS [facility] Last Admin: 09/11/18 21:22 Dose: 75 mg Enoxaparin Sodium (Lovenox -) 40 mg SQ DAILY [facility] Last Admin: 09/12/18 09:15 Dose: 40 mg Guaifenesin (Robitussin Dm -) 10 ml PO Q4H PRN PRN Reason: COUGH Last Admin: 09/11/18 06:12 Dose: 10 ml Piperacillin Sod/Tazobactam (Sod 3.375 gm/ Dextrose) 50 mls @ 100 mls/hr IVPB Q8H-IV [facility]; Protocol Last Admin: 09/12/18 09:10 Dose: 100 mls/hr Ipratropium [place] (Atrovent 0.02% Nebulizer -) 1 amp NEB Q6H PRN PRN Reason: DYSPEPSIA Stop: 09/15/18 10:39 Last Admin: 09/10/18 23:19 Dose: 1 amp Lorazepam (Ativan -) 4 mg PO TID [facility] Last Admin: 09/12/18 12:19 Dose: Not Given Methylprednisolone Sodium Succinate (Solu-Medrol -) 40 mg IVPUSH Q8H [facility] Non-Formulary Medication (Patient's Own Med) 1 each PO TID [facility] Senna/Docusate Sodium (Pericolace -) 2 tablet PO HS PRN PRN Reason: CONSTIPATION Tramadol HCl (Ultram -) 50 mg PO Q8H PRN PRN Reason: PAIN LEVEL 6-10 Last Admin: 09/12/18 09:11 Dose: 50 mg - Objective Vital Signs: Vital Signs Temperature 98.6 F 09/11/18 22:00 Pulse Rate 78 09/12/18 08:37 Respiratory Rate 22 H 09/12/18 08:41 Blood Pressure 141/75 09/12/18 08:37 O2 Sat by Pulse Oximetry (%) 94 L 09/12/18 08:41 Constitutional: Yes: No Distress, Calm Cardiovascular: Yes: Regular Rate and Rhythm Respiratory: Yes: Diminished (slightly RUL) Gastrointestinal: Yes: Normal Bowel Sounds, Soft Genitourinary: Yes: WNL Extremities: Yes: WNL Integumentary: Yes: WNL Neurological: Yes: Alert Labs: CBC, BMP 09/12/18 12:30 09/09/18 05:30 - ....Imaging Cat Scan: Report Reviewed Problem List - Problems (1) Hemoptysis Code(s): R04.2 - HEMOPTYSIS (2) Pneumonia Code(s): J18.9 - PNEUMONIA, UNSPECIFIED ORGANISM Qualifiers: (3) SOB (shortness of breath) Code(s): R06.02 - SHORTNESS OF BREATH (4) Hyperlipidemia Code(s): E78.5 - HYPERLIPIDEMIA, UNSPECIFIED (5) Hypertension Code(s): I10 - ESSENTIAL (PRIMARY) HYPERTENSION Assessment/Plan PNA - ? new RUL infiltrate Hemoptysis- improving Leukocytosis Chronic lung disease -- wbc trending up, questionable whether this is due to high dose steroids vs. new infectious process -- continue Zosyn for now -- steroid dose being decreased -- repeat cbc in a.m - if wbc continues to be elevated will broaden antibiotic coverage Pt appears to be otherwise improving Continue monitor closely
[2018-09-12] MEDS: AMPHETAMINE PO SCH ×2 (14:01→21:41)
[2018-09-12] MEDS: DEXTROAMPHETAMINE PO SCH ×2 (14:01→21:41)
--- NOTE | 2018-09-12 14:53 | PN ---
Physical Exam: SUBJECTIVE: Patient seen and examined He is better no distress on abx and taking his abx OBJECTIVE: Vital Signs Period Temp Pulse Resp BP Sys/Walter Pulse Ox Last 24 Hr 98.1 F-98.6 F 78-85 20-23 139-151/72-79 93-95 GENERAL: The patient is awake, alert, and fully oriented, in no acute distress. HEAD: Normal with no signs of trauma. EYES: PERRL, extraocular movements intact, sclera anicteric, conjunctiva clear. No ptosis. ENT: Ears normal, nares patent, oropharynx clear without exudates, moist mucous membranes. NECK: Trachea midline, full range of motion, supple. LUNGS: bilateral bs coarse . HEART: Regular rate and rhythm, S1, S2 without murmur, rub or gallop. ABDOMEN: Soft, nontender, nondistended, normoactive bowel sounds, no guarding, no rebound, no hepatosplenomegaly, no masses. EXTREMITIES: 2+ pulses, warm, well-perfused, no edema. NEUROLOGICAL: Cranial nerves II through XII grossly intact. Normal speech, gait not observed. PSYCH: Normal mood, normal affect. SKIN: Warm, dry, normal turgor, no rashes or lesions noted Laboratory Results - last 24 hr 09/12/18 12:30 WBC 23.4 H RBC 4.43 Hgb 12.4 Hct 36.8 MCV 83.2 MCH 28.0 MCHC 33.6 RDW 14.2 Plt Count 464 H D MPV 8.4 Absolute Neuts (auto) 21.4 H Neutrophils % 91.6 H D Lymphocytes % 4.8 L D Monocytes % 3.6 L Eosinophils % 0.0 D Basophils % 0.0 Nucleated RBC % 0 Active Medications Generic Name Dose Route Start Last Admin Trade Name Freq PRN Reason Stop Dose Admin Acetaminophen 650 mg 09/07/18 22:10 09/12/18 02:01 Tylenol - PO 650 mg Q6H PRN Administration FEVER Al Hydroxide/Mg Hydroxide 30 ml 09/09/18 22:21 09/10/18 20:41 Mylanta Oral Suspension - PO 30 ml Q6H PRN Administration DYSPEPSIA Albuterol Sulfate 1 amp 09/07/18 22:10 09/11/18 06:24 Ventolin 0.083% Nebulizer Soln - NEB 1 amp Q6H PRN Administration SHORT OF BREATH/WHEEZING Albuterol Sulfate 1 amp 09/08/18 08:00 09/12/18 12:22 Ventolin 0.083% Nebulizer Soln - NEB 1 amp RQID [facility]UCK Administration Amlodipine Besylate 10 mg 09/08/18 10:00 09/12/18 09:11 Norvasc - PO 10 mg DAILY [facility]UCK Administration Artificial Tears 1 drop 09/09/18 22:21 09/12/18 09:19 Artificial Tears OU 1 drop Q6H PRN Administration DRY EYES Aspirin 81 mg 09/08/18 10:00 09/12/18 09:11 Asa - PO 81 mg DAILY [facility]UCK Administration Atorvastatin Calcium 20 mg 09/08/18 22:00 09/11/18 21:22 Lipitor - PO 20 mg HS [facility]UCK Administration Budesonide/Formoterol Fumarate 2 puff 09/07/18 22:30 09/12/18 09:23 Symbicort 160/4.5mcg - IH 2 puff BID [facility]UCK Administration Clonidine 0.2 mg 09/08/18 10:00 09/12/18 13:58 Catapres - PO 0.2 mg QID [facility]UCK Administration Docusate Sodium 100 mg 09/08/18 16:36 09/09/18 13:44 Colace - PO 100 mg Q12H PRN Administration CONSTIPATION Doxepin HCl 75 mg 09/08/18 22:00 09/11/18 21:22 Sinequan - PO 75 mg HS [facility]UCK Administration Enoxaparin Sodium 40 mg 09/08/18 10:00 09/12/18 09:15 Lovenox - SQ 40 mg DAILY [facility] Administration Guaifenesin 10 ml 09/07/18 22:10 09/11/18 06:12 Robitussin Dm - PO 10 ml Q4H PRN Administration COUGH Piperacillin Sod/Tazobactam 50 mls @ 100 mls/hr 09/08/18 02:00 09/12/18 09:10 Sod 3.375 gm/ Dextrose IVPB 100 mls/hr Q8H-IV [facility]UCK Administration Protocol Ipratropium [place] 1 amp 09/08/18 10:39 09/10/18 23:19 Atrovent 0.02% Nebulizer - NEB 09/15/18 10:39 1 amp Q6H PRN Administration DYSPEPSIA Lorazepam 4 mg 09/12/18 10:15 09/12/18 13:58 Ativan - PO 4 mg TID [facility]UCK Administration Methylprednisolone Sodium Succinate 40 mg 09/12/18 18:00 Solu-Medrol - IVPUSH Q8H-IV CHUCK Non-Formulary Medication 1 each 09/12/18 14:00 09/12/18 14:01 Patient's Own Med PO 1 each TID [facility]UCK Administration Senna/Docusate Sodium 2 tablet 09/08/18 16:36 Pericolace - PO HS PRN CONSTIPATION Tramadol HCl 50 mg 09/08/18 16:15 09/12/18 09:11 Ultram - PO 50 mg Q8H PRN Administration PAIN LEVEL 6-10 ASSESSMENT/PLAN: 68 year old man with a history of HTN, hyperlipidemia, asthma, chronic bronchiectasis, ADD, anxiety, TBI who presented to the ED with cough and SOB and progressively worsening hemoptysis. 1. Acute hypoxic respiratory failure secondary to exacerbation of chronic bronchiectasis vs asthma- saturating 94% on RA. lower solumedrol 40 mg Q6H, inhalers, nebs. bipap prn. pulmonar f/u appreciated his wbc count is slightly elevated and he has no fever so it is probably due to steroids 2. Hemopytsis- is better , ct chest shows no mass but pna 3. PNA- on zosyn , will cont abx at this time 4. SALAS- better today 5. Anxiety- ativan prn and will adjust the dose or 4 mg tid according to his home dose 6. Dyslipidemia- statin 7. HTN- cont home meds
[2018-09-12 18:22] LABS: ANISOCYTOSIS 0; MACROCYTOSIS 0; PLATELET ESTIMATE NORMAL
[2018-09-12] MEDS: ATORVASTATIN CA 20 MG TABLET (FP) PO SCH (21:41)
[2018-09-12] MEDS: guaiFENesin/D-METHORPHAN HB 10 ML UNIT-DOSE CUPS PO PRN (21:47)
[2018-09-12] MEDS: DOXEPIN HCL 25 MG CAPSULE PO SCH (22:09)
[2018-09-13] MEDS ORDERED: DEXTROSE 5%-WATER - 50 ML IVPB ONE ×3 (01:00→17:36)
[2018-09-13] MEDS ORDERED: PIPERACILLIN/TAZOBACTAM 3.375 GM VIAL IVPB ONE ×3 (01:00→17:35)
[2018-09-13] MEDS: methylPREDNISolone NA SUCC 40 MG/1 ML VIAL IVPUSH SCH ×3 (01:02→17:41)
[2018-09-13] MEDS: PIPERACILLIN/TAZOB 3.375 GM 3.375 GM in DEXTROSE 5%-WATER - 50 ML IVPB SCH ×3 (01:02→17:42)
[2018-09-13] MEDS: DEXTROAMPHETAMINE PO SCH ×3 (06:21→23:35)
[2018-09-13] MEDS: LORazepam 1 MG TABLET PO SCH ×3 (06:21→23:36)
[2018-09-13] MEDS: AMPHETAMINE PO SCH ×3 (06:21→23:35)
[2018-09-13] MEDS: IPRATROPIUM BR 0.02% 0.5 MG/2.5 ML VIAL.NEB. NEB PRN (06:31)
[2018-09-13 07:42] LABS: BASO % 0.2 % (0-2.0); HEMOGLOBIN 11.2 GM/dL (11.7-16.9); LYMPH % 4.3 % (8-40); MCH 27.1 pg (25.7-33.7); MCHC 33.1 g/dl (32.0-35.9); MEAN PLT VOLUME 8.4 fl (7.5-11.1); MONO % 2.6 % (3.8-10.2); NEUT % 92.9 % (42.8-82.8); PLATELET COUNT 410 K/MM3 (134-434); RBC 4.14 M/mm3 (4.00-5.60); RDW 14.2 % (11.9-15.9); WHITE BLOOD COUNT 19.2 K/mm3 (4.0-10.0)
[2018-09-13] MEDS: ALBUTEROL SO4 0.083% IH SOL 2.5 MG/3 ML VIAL.NEB. NEB SCH ×4 (07:57→20:05)
--- NOTE | 2018-09-13 09:51 | PN ---
Progress Note, Physician Chief Complaint: Seen and examined TELE: reviewed. Over weekend, had self limited episode of PAF w/ aberrancy 09/11 No recurrence 09/12 and in NSR now. He was asx at the time. - Current Medication List Current Medications: Active Medications Acetaminophen (Tylenol -) 650 mg PO Q6H PRN PRN Reason: FEVER Last Admin: 09/12/18 02:01 Dose: 650 mg Al Hydroxide/Mg Hydroxide (Mylanta Oral Suspension -) 30 ml PO Q6H PRN PRN Reason: DYSPEPSIA Last Admin: 09/10/18 20:41 Dose: 30 ml Albuterol Sulfate (Ventolin 0.083% Nebulizer Soln -) 1 amp NEB Q6H PRN PRN Reason: SHORT OF BREATH/WHEEZING Last Admin: 09/11/18 06:24 Dose: 1 amp Albuterol Sulfate (Ventolin 0.083% Nebulizer Soln -) 1 amp NEB RQID [facility] Last Admin: 09/13/18 07:57 Dose: 1 amp Amlodipine Besylate (Norvasc -) 10 mg PO DAILY [facility] Last Admin: 09/12/18 09:11 Dose: 10 mg Artificial Tears (Artificial Tears) 1 drop OU Q6H PRN PRN Reason: DRY EYES Last Admin: 09/12/18 09:19 Dose: 1 drop Aspirin (Asa -) 81 mg PO DAILY [facility] Last Admin: 09/12/18 09:11 Dose: 81 mg Atorvastatin Calcium (Lipitor -) 20 mg PO HS [facility] Last Admin: 09/12/18 21:41 Dose: 20 mg Budesonide/Formoterol Fumarate (Symbicort 160/4.5mcg -) 2 puff IH BID [facility] Last Admin: 09/12/18 21:56 Dose: 2 puff Clonidine (Catapres -) 0.2 mg PO QID [facility] Last Admin: 09/12/18 21:40 Dose: 0.2 mg Docusate Sodium (Colace -) 100 mg PO Q12H PRN PRN Reason: CONSTIPATION Last Admin: 09/09/18 13:44 Dose: 100 mg Doxepin HCl (Sinequan -) 75 mg PO HS [facility] Last Admin: 09/12/18 22:09 Dose: 75 mg Enoxaparin Sodium (Lovenox -) 40 mg SQ DAILY [facility] Last Admin: 09/12/18 09:15 Dose: 40 mg Guaifenesin (Robitussin Dm -) 10 ml PO Q4H PRN PRN Reason: COUGH Last Admin: 09/12/18 21:47 Dose: 10 ml Piperacillin Sod/Tazobactam (Sod 3.375 gm/ Dextrose) 50 mls @ 100 mls/hr IVPB Q8H-IV [facility]; Protocol Last Admin: 09/13/18 01:02 Dose: 100 mls/hr Ipratropium [place] (Atrovent 0.02% Nebulizer -) 1 amp NEB Q6H PRN PRN Reason: DYSPEPSIA Stop: 09/15/18 10:39 Last Admin: 09/13/18 06:31 Dose: 1 amp Lorazepam (Ativan -) 4 mg PO TID [facility] Last Admin: 09/13/18 06:21 Dose: 4 mg Methylprednisolone Sodium Succinate (Solu-Medrol -) 40 mg IVPUSH Q8H-IV [facility] Last Admin: 09/13/18 01:02 Dose: 40 mg Dextroamphetamine/Amphetamine ( Adderall) 30 Mg Tab (Pt's Own) 1 each PO TID [facility] Last Admin: 09/13/18 06:21 Dose: 1 each Senna/Docusate Sodium (Pericolace -) 2 tablet PO HS PRN PRN Reason: CONSTIPATION Tramadol HCl (Ultram -) 50 mg PO Q8H PRN PRN Reason: PAIN LEVEL 6-10 Last Admin: 09/12/18 09:11 Dose: 50 mg - Objective Vital Signs: Vital Signs Temperature 98.0 F 09/13/18 08:55 Pulse Rate 86 09/13/18 08:55 Respiratory Rate 18 09/13/18 08:55 Blood Pressure 144/65 09/13/18 08:55 O2 Sat by Pulse Oximetry (%) 97 09/13/18 08:55 Constitutional: Yes: No Distress Cardiovascular: Yes: Regular Rate and Rhythm Respiratory: Yes: Other (scattered rhonchi, no rales) Gastrointestinal: Yes: Soft Edema: Yes Edema: LLE: 2+, RLE: Trace Neurological: Yes: Alert, Oriented ...Motor Strength: WNL Labs: CBC, BMP 09/13/18 05:25 09/09/18 05:30 - ....Imaging EKG: Other (Tele again reviewed from weekend. Episode of wider complex irregular tachycardia noted from 09/11, no recurrence. Self limited) Assessment/Plan MP: PNA Asthma/ Bronchiectasis HTN Episode of PAF w/ aberrancy REC: 1. Supplimental O2 2. Abx and steroid taper as per Pulm 3. BP controlled 4. PAF vs isolated episode: [id number] score 2 (age and HTN): merits full AC Lengthy discussion with patient about PAF, [id number] score, stroke risk and therapies available to reduce stroke risk. In his case, full AC would be recommended. There are no absolute contraindications to AC by history. Have discussed risks/benefits of treatment w/ Coumadin vs NOAC vs ASA alone. He has opted for Eliquis. Time for questions was given. Will d/c ASA and Lovenox (Prophylaxis dose). He will need serial monitoring as outpatient with periodic ECGs and Holters to see if this was an isolated episode. 5. LE Venous duplex to r/o DVT as there is now asymmetric LE edema noted on exam Coverage for Juliane
[2018-09-13] MEDS: cloNIDine HCL 0.1 MG TABLET PO SCH ×4 (10:04→23:06)
[2018-09-13] MEDS: BUDESONIDE/FORMETEROL FUMARATE 160/4.5 mcg INHALER IH SCH ×2 (10:04→23:38)
[2018-09-13] MEDS: amLODIPine BESYLATE 10 MG TABLET (FP) PO SCH (10:05)
[2018-09-13] MEDS: traMADol HCL 50 MG TABLET PO PRN ×2 (10:08→23:36)
[2018-09-13] MEDS: APIXABAN 5 MG TABLET PO SCH ×2 (10:44→23:06)
--- NOTE | 2018-09-13 10:54 | PN ---
Progress Note, Physician History of Present Illness: pulmonary alert,feeling better dyspnea improving,- hemoptysis,last episode yesterday dark heme - Current Medication List Current Medications: Active Medications Acetaminophen (Tylenol -) 650 mg PO Q6H PRN PRN Reason: FEVER Last Admin: 09/12/18 02:01 Dose: 650 mg Al Hydroxide/Mg Hydroxide (Mylanta Oral Suspension -) 30 ml PO Q6H PRN PRN Reason: DYSPEPSIA Last Admin: 09/10/18 20:41 Dose: 30 ml Albuterol Sulfate (Ventolin 0.083% Nebulizer Soln -) 1 amp NEB Q6H PRN PRN Reason: SHORT OF BREATH/WHEEZING Last Admin: 09/11/18 06:24 Dose: 1 amp Albuterol Sulfate (Ventolin 0.083% Nebulizer Soln -) 1 amp NEB RQID [facility] Last Admin: 09/13/18 07:57 Dose: 1 amp Amlodipine Besylate (Norvasc -) 10 mg PO DAILY [facility] Last Admin: 09/13/18 10:05 Dose: 10 mg Apixaban (Eliquis -) 5 mg PO BID [facility] Last Admin: 09/13/18 10:44 Dose: 5 mg Artificial Tears (Artificial Tears) 1 drop OU Q6H PRN PRN Reason: DRY EYES Last Admin: 09/12/18 09:19 Dose: 1 drop Atorvastatin Calcium (Lipitor -) 20 mg PO [facility] Last Admin: 09/12/18 21:41 Dose: 20 mg Budesonide/Formoterol Fumarate (Symbicort 160/4.5mcg -) 2 puff IH BID [facility] Last Admin: 09/13/18 10:04 Dose: 2 puff Clonidine (Catapres -) 0.2 mg PO QID [facility] Last Admin: 09/13/18 10:04 Dose: 0.2 mg Docusate Sodium (Colace -) 100 mg PO Q12H PRN PRN Reason: CONSTIPATION Last Admin: 09/09/18 13:44 Dose: 100 mg Doxepin HCl (Sinequan -) 75 mg PO HS [facility] Last Admin: 09/12/18 22:09 Dose: 75 mg Guaifenesin (Robitussin Dm -) 10 ml PO Q4H PRN PRN Reason: COUGH Last Admin: 09/12/18 21:47 Dose: 10 ml Piperacillin Sod/Tazobactam (Sod 3.375 gm/ Dextrose) 50 mls @ 100 mls/hr IVPB Q8H-IV [facility]; Protocol Last Admin: 09/13/18 10:05 Dose: 100 mls/hr Ipratropium [place] (Atrovent 0.02% Nebulizer -) 1 amp NEB Q6H PRN PRN Reason: DYSPEPSIA Stop: 09/15/18 10:39 Last Admin: 09/13/18 06:31 Dose: 1 amp Lorazepam (Ativan -) 4 mg PO TID [facility] Last Admin: 09/13/18 06:21 Dose: 4 mg Methylprednisolone Sodium Succinate (Solu-Medrol -) 40 mg IVPUSH Q8H-IV [facility] Last Admin: 09/13/18 10:04 Dose: 40 mg Dextroamphetamine/Amphetamine ( Adderall) 30 Mg Tab (Pt's Own) 1 each PO TID [facility] Last Admin: 09/13/18 06:21 Dose: 1 each Senna/Docusate Sodium (Pericolace -) 2 tablet PO HS PRN PRN Reason: CONSTIPATION Tramadol HCl (Ultram -) 50 mg PO Q8H PRN PRN Reason: PAIN LEVEL 6-10 Last Admin: 09/13/18 10:08 Dose: 50 mg - Objective Vital Signs: Vital Signs Temperature 98.0 F 09/13/18 08:55 Pulse Rate 86 09/13/18 08:55 Respiratory Rate 18 09/13/18 08:55 Blood Pressure 144/65 09/13/18 08:55 O2 Sat by Pulse Oximetry (%) 97 09/13/18 08:55 Constitutional: Yes: Well Nourished, Calm Eyes: Yes: WNL HENT: Yes: WNL Neck: Yes: WNL Cardiovascular: Yes: Regular Rate and Rhythm, S1, S2 Respiratory: Yes: Rhonchi (few scattered rhonchi) Gastrointestinal: Yes: Normal Bowel Sounds, Soft Extremities: Yes: WNL Edema: No Labs: CBC, BMP 09/13/18 05:25 Problem List - Problems (1) Hemoptysis Code(s): R04.2 - HEMOPTYSIS (2) Pneumonia Code(s): J18.9 - PNEUMONIA, UNSPECIFIED ORGANISM Qualifiers: (3) Productive cough Code(s): R05 - COUGH (4) SOB (shortness of breath) Code(s): R06.02 - SHORTNESS OF BREATH (5) Head injury Code(s): S09.90XA - UNSPECIFIED INJURY OF HEAD, INITIAL ENCOUNTER Qualifiers: Encounter type: initial encounter Qualified Code(s): S09.90XA - Unspecified injury of head, initial encounter (6) Adult ADHD (attention deficit hyperactivity disorder) Code(s): F90.0 - ATTN-DEFCT HYPERACTIVITY DISORDER, PREDOM INATTENTIVE TYPE (7) Bronchiectasis Code(s): J47.9 - BRONCHIECTASIS, UNCOMPLICATED (8) Hyperlipidemia Code(s): E78.5 - HYPERLIPIDEMIA, UNSPECIFIED (9) Hypertension Code(s): I10 - ESSENTIAL (PRIMARY) HYPERTENSION Assessment/Plan IMP PNEUMONIA SUPERIMPOSED ON CHRONIC LUNG DISEASE ASTHMA/BRONCHIECTASIS/ILD SUPPLEMENTAL O2 HEMOPTYSIS IMPROVED TRAUMATIC BRAIN INJURY HTN HLD ATTENTION DEFICIT DISORDER PLAN IV ABX INHALED BROCHODILATORS CONTINUE STEROID TAPER QUANTIFY HEMOPTYSIS F/U CHEST X-RAYS DR SEO Problem List - Problems (1) Hemoptysis Code(s): R04.2 - HEMOPTYSIS (2) Pneumonia Code(s): J18.9 - PNEUMONIA, UNSPECIFIED ORGANISM Qualifiers: (3) Productive cough Code(s): R05 - COUGH (4) SOB (shortness of breath) Code(s): R06.02 - SHORTNESS OF BREATH (5) Head injury Code(s): S09.90XA - UNSPECIFIED INJURY OF HEAD, INITIAL ENCOUNTER Qualifiers: Encounter type: initial encounter Qualified Code(s): S09.90XA - Unspecified injury of head, initial encounter (6) Adult ADHD (attention deficit hyperactivity disorder) Code(s): F90.0 - ATTN-DEFCT HYPERACTIVITY DISORDER, PREDOM INATTENTIVE TYPE (7) Bronchiectasis Code(s): J47.9 - BRONCHIECTASIS, UNCOMPLICATED (8) Hyperlipidemia Code(s): E78.5 - HYPERLIPIDEMIA, UNSPECIFIED (9) Hypertension Code(s): I10 - ESSENTIAL (PRIMARY) HYPERTENSION
[2018-09-13 10:55] LABS: ANISOCYTOSIS 0; MACROCYTOSIS 0; PLATELET ESTIMATE NORMAL
--- NOTE | 2018-09-13 11:24 | PN ---
Progress Note, Physician - Current Medication List Current Medications: Active Medications Acetaminophen (Tylenol -) 650 mg PO Q6H PRN PRN Reason: FEVER Last Admin: 09/12/18 02:01 Dose: 650 mg Al Hydroxide/Mg Hydroxide (Mylanta Oral Suspension -) 30 ml PO Q6H PRN PRN Reason: DYSPEPSIA Last Admin: 09/10/18 20:41 Dose: 30 ml Albuterol Sulfate (Ventolin 0.083% Nebulizer Soln -) 1 amp NEB Q6H PRN PRN Reason: SHORT OF BREATH/WHEEZING Last Admin: 09/11/18 06:24 Dose: 1 amp Albuterol Sulfate (Ventolin 0.083% Nebulizer Soln -) 1 amp NEB RQID [facility] Last Admin: 09/13/18 07:57 Dose: 1 amp Amlodipine Besylate (Norvasc -) 10 mg PO DAILY [facility] Last Admin: 09/13/18 10:05 Dose: 10 mg Apixaban (Eliquis -) 5 mg PO BID [facility] Last Admin: 09/13/18 10:44 Dose: 5 mg Artificial Tears (Artificial Tears) 1 drop OU Q6H PRN PRN Reason: DRY EYES Last Admin: 09/12/18 09:19 Dose: 1 drop Atorvastatin Calcium (Lipitor -) 20 mg PO [facility] Last Admin: 09/12/18 21:41 Dose: 20 mg Budesonide/Formoterol Fumarate (Symbicort 160/4.5mcg -) 2 puff IH BID [facility] Last Admin: 09/13/18 10:04 Dose: 2 puff Clonidine (Catapres -) 0.2 mg PO QID [facility] Last Admin: 09/13/18 10:04 Dose: 0.2 mg Docusate Sodium (Colace -) 100 mg PO Q12H PRN PRN Reason: CONSTIPATION Last Admin: 09/09/18 13:44 Dose: 100 mg Doxepin HCl (Sinequan -) 75 mg PO HS [facility] Last Admin: 09/12/18 22:09 Dose: 75 mg Guaifenesin (Robitussin Dm -) 10 ml PO Q4H PRN PRN Reason: COUGH Last Admin: 09/12/18 21:47 Dose: 10 ml Piperacillin Sod/Tazobactam (Sod 3.375 gm/ Dextrose) 50 mls @ 100 mls/hr IVPB Q8H-IV [facility]; Protocol Last Admin: 09/13/18 10:05 Dose: 100 mls/hr Ipratropium [place] (Atrovent 0.02% Nebulizer -) 1 amp NEB Q6H PRN PRN Reason: DYSPEPSIA Stop: 09/15/18 10:39 Last Admin: 09/13/18 06:31 Dose: 1 amp Lorazepam (Ativan -) 4 mg PO TID [facility] Last Admin: 09/13/18 06:21 Dose: 4 mg Methylprednisolone Sodium Succinate (Solu-Medrol -) 40 mg IVPUSH Q8H-IV [facility] Stop: 09/14/18 02:00 Last Admin: 09/13/18 10:04 Dose: 40 mg Methylprednisolone Sodium Succinate (Solu-Medrol -) 40 mg IVPUSH Q12H [facility] Dextroamphetamine/Amphetamine ( Adderall) 30 Mg Tab (Pt's Own) 1 each PO TID [facility] Last Admin: 09/13/18 06:21 Dose: 1 each Senna/Docusate Sodium (Pericolace -) 2 tablet PO HS PRN PRN Reason: CONSTIPATION Tramadol HCl (Ultram -) 50 mg PO Q8H PRN PRN Reason: PAIN LEVEL 6-10 Last Admin: 09/13/18 10:08 Dose: 50 mg - Objective Vital Signs: Vital Signs Temperature 98.0 F 09/13/18 08:55 Pulse Rate 86 09/13/18 08:55 Respiratory Rate 18 09/13/18 08:55 Blood Pressure 144/65 09/13/18 08:55 O2 Sat by Pulse Oximetry (%) 97 09/13/18 08:55 Labs: CBC, BMP 09/13/18 05:25 09/09/18 05:30
--- NOTE | 2018-09-13 15:43 | PN ---
Physical Exam: SUBJECTIVE: Patient seen and examined. He is in no distress at this time, has had multiple paroxysmal Afib. OBJECTIVE: Vital Signs Period Temp Pulse Resp BP Sys/Walter Pulse Ox Last 24 Hr 98.0 F-98.9 F 72-90 18-18 127-148/60-79 96-98 GENERAL: The patient is awake, alert, and fully oriented, in no acute distress. HEAD: Normal with no signs of trauma. EYES: PERRL, extraocular movements intact, sclera anicteric, conjunctiva clear. No ptosis. ENT: Ears normal, nares patent, oropharynx clear without exudates, moist mucous membranes. NECK: Trachea midline, full range of motion, supple. LUNGS: Breath sounds equal, clear to auscultation bilaterally, no wheezes, no crackles, no accessory muscle use. HEART: Regular rate and rhythm, S1, S2 without murmur, rub or gallop. ABDOMEN: Soft, nontender, nondistended, normoactive bowel sounds, no guarding, no rebound, no hepatosplenomegaly, no masses. EXTREMITIES: 2+ pulses, warm, well-perfused, no edema. NEUROLOGICAL: Cranial nerves II through XII grossly intact. Normal speech, gait not observed. PSYCH: Normal mood, normal affect. SKIN: Warm, dry, normal turgor, no rashes or lesions noted Laboratory Results - last 24 hr 09/12/18 09/13/18 12:30 05:25 WBC 19.2 H RBC 4.14 Hgb 11.2 L Hct 34.0 L MCV 82.0 MCH 27.1 MCHC 33.1 RDW 14.2 Plt Count 410 MPV 8.4 Absolute Neuts (auto) 17.9 H Neutrophils % 92.9 H Neutrophils % (Manual) 92.9 H 93.1 H Band Neutrophils % 0.0 0.0 Lymphocytes % 4.3 L Lymphocytes % (Manual) 5.1 L 2.9 L D Monocytes % 2.6 L Monocytes % (Manual) 2 L 2 L Eosinophils % 0.0 Eosinophils % (Manual) 0.0 0.0 Basophils % 0.2 D Basophils % (Manual) 0.0 0.0 Myelocytes % (Man) 0 1 D Promyelocytes % (Man) 0 0 Blast Cells % (Manual) 0 0 Nucleated RBC % 0 0 Metamyelocytes 0 0 Hypochromia 0 0 Platelet Estimate Normal Normal Platelet Comment Present Polychromasia 0 1+ Poikilocytosis 0 0 Anisocytosis 0 0 Microcytosis 0 0 Macrocytosis 0 0 Active Medications Generic Name Dose Route Start Last Admin Trade Name Freq PRN Reason Stop Dose Admin Acetaminophen 650 mg 09/07/18 22:10 09/12/18 02:01 Tylenol - PO 650 mg Q6H PRN Administration FEVER Al Hydroxide/Mg Hydroxide 30 ml 09/09/18 22:21 09/10/18 20:41 Mylanta Oral Suspension - PO 30 ml Q6H PRN Administration DYSPEPSIA Albuterol Sulfate 1 amp 09/07/18 22:10 09/11/18 06:24 Ventolin 0.083% Nebulizer Soln - NEB 1 amp Q6H PRN Administration SHORT OF BREATH/WHEEZING Albuterol Sulfate 1 amp 09/08/18 08:00 09/13/18 15:30 Ventolin 0.083% Nebulizer Soln - NEB 1 amp RQID [facility] Administration Amlodipine Besylate 10 mg 09/08/18 10:00 09/13/18 10:05 Norvasc - PO 10 mg DAILY [facility] Administration Apixaban 5 mg 09/13/18 10:00 09/13/18 10:44 Eliquis - PO 5 mg BID [facility] Administration Artificial Tears 1 drop 09/09/18 22:21 09/12/18 09:19 Artificial Tears OU 1 drop Q6H PRN Administration DRY EYES Atorvastatin Calcium 20 mg 09/08/18 22:00 09/12/18 21:41 Lipitor - PO 20 mg HS [facility] Administration Budesonide/Formoterol Fumarate 2 puff 09/07/18 22:30 09/13/18 10:04 Symbicort 160/4.5mcg - IH 2 puff BID [facility] Administration Clonidine 0.2 mg 09/08/18 10:00 09/13/18 14:28 Catapres - PO 0.2 mg QID [facility] Administration Docusate Sodium 100 mg 09/08/18 16:36 09/09/18 13:44 Colace - PO 100 mg Q12H PRN Administration CONSTIPATION Doxepin HCl 75 mg 09/08/18 22:00 09/12/18 22:09 Sinequan - PO 75 mg HS [facility] Administration Guaifenesin 10 ml 09/07/18 22:10 09/12/18 21:47 Robitussin Dm - PO 10 ml Q4H PRN Administration COUGH Piperacillin Sod/Tazobactam 50 mls @ 100 mls/hr 09/08/18 02:00 09/13/18 10:05 Sod 3.375 gm/ Dextrose IVPB 100 mls/hr Q8H-IV CHUCK Administration Protocol Ipratropium [place] 1 amp 09/08/18 10:39 09/13/18 06:31 Atrovent 0.02% Nebulizer - NEB 09/15/18 10:39 1 amp Q6H PRN Administration DYSPEPSIA Lorazepam 4 mg 09/12/18 10:15 09/13/18 14:29 Ativan - PO 4 mg TID [facility] Administration Methylprednisolone Sodium Succinate 40 mg 09/12/18 18:00 09/13/18 10:04 Solu-Medrol - IVPUSH 09/14/18 02:00 40 mg Q8H-IV [facility]UCK Administration Methylprednisolone Sodium Succinate 40 mg 09/14/18 11:00 Solu-Medrol - IVPUSH Q12H [facility]UCK Dextroamphetamine/ 1 each 09/12/18 14:00 09/13/18 14:29 Amphetamine ( PO 1 each Adderall) 30 Mg Tab TID [facility] Administration (Pt's Own) Senna/Docusate Sodium 2 tablet 09/08/18 16:36 Pericolace - PO HS PRN CONSTIPATION Tramadol HCl 50 mg 09/08/18 16:15 09/13/18 10:08 Ultram - PO 50 mg Q8H PRN Administration PAIN LEVEL 6-10 ASSESSMENT/PLAN: 68 Y/O M W HTN, hyperlipidemia, asthma, chronic bronchiectasis, ADD, anxiety, TBI who p/w cough and SOB and progressively worsening hemoptysis. 1. Acute hypoxic respiratory failure secondary to exacerbation of chronic bronchiectasis vs asthma- saturating 94% on RA. lower solumedrol 40 mg Q12H, inhalers, nebs. bipap prn. pulmonary f/u appreciated 2. new DX of Paroxismal Afib: cardiology service evaluated the patient and patient was initiated on AC, with monitoring for hemoptysis. will get an Echo and evaluation of the right heart 2. Hemopytsis- is better , ct chest shows no mass but pna: no more episodes since last night 3. PNA- on zosyn , will cont abx at this time 4. Anxiety- ativan prn and will adjust the dose or 4 mg tid according to his home dose 5. Dyslipidemia- statin and aspirin 6. HTN- cont home meds 7) Dispo: likely to be DCed in 2 days with better control of COPD exacerbation Visit type - Emergency Visit Emergency Visit: Yes ED Registration Date: 09/06/18 Care time: The patient presented to the Emergency Department on the above date and was hospitalized for further evaluation of their emergent condition. - New Patient This patient is new to me today: No - Critical Care Critical Care patient: No - Discharge Referral Referred to [facility] Med [facility] No
[2018-09-13] MEDS ORDERED: ASPIRIN 81 MG CHEWABLE TABLETS PO SCH (15:45)
[2018-09-13] MEDS: ALBUTEROL SO4 0.083% IH SOL 2.5 MG/3 ML VIAL.NEB. NEB PRN (22:36)
[2018-09-13] MEDS ORDERED: PT OWN MED DRAWER 7, Y5N ONE (22:36)
[2018-09-13] MEDS: DOXEPIN HCL 25 MG CAPSULE PO SCH (23:06)
[2018-09-13] MEDS: ATORVASTATIN CA 20 MG TABLET (FP) PO SCH (23:06)
[2018-09-13] MEDS: guaiFENesin/D-METHORPHAN HB 10 ML UNIT-DOSE CUPS PO PRN (23:14)
[2018-09-14] MEDS ORDERED: DEXTROSE 5%-WATER - 50 ML IVPB ONE ×2 (01:24→09:12)
[2018-09-14] MEDS ORDERED: PIPERACILLIN/TAZOBACTAM 3.375 GM VIAL IVPB ONE ×2 (01:24→09:12)
[2018-09-14] MEDS: PIPERACILLIN/TAZOB 3.375 GM 3.375 GM in DEXTROSE 5%-WATER - 50 ML IVPB SCH ×2 (01:26→09:45)
[2018-09-14] MEDS: methylPREDNISolone NA SUCC 40 MG/1 ML VIAL IVPUSH SCH (01:27)
[2018-09-14] MEDS: guaiFENesin/D-METHORPHAN HB 10 ML UNIT-DOSE CUPS PO PRN (05:43)
[2018-09-14] MEDS: LORazepam 1 MG TABLET PO SCH ×2 (05:44→13:32)
[2018-09-14] MEDS: AMPHETAMINE PO SCH ×2 (06:31→13:33)
[2018-09-14] MEDS: DEXTROAMPHETAMINE PO SCH ×2 (06:31→13:33)
[2018-09-14] MEDS: ALBUTEROL SO4 0.083% IH SOL 2.5 MG/3 ML VIAL.NEB. NEB SCH ×3 (08:40→15:28)
[2018-09-14] MEDS: cloNIDine HCL 0.1 MG TABLET PO SCH ×2 (09:46→13:32)
[2018-09-14] MEDS: APIXABAN 5 MG TABLET PO SCH (09:46)
[2018-09-14] MEDS: amLODIPine BESYLATE 10 MG TABLET (FP) PO SCH (09:46)
[2018-09-14] MEDS: BUDESONIDE/FORMETEROL FUMARATE 160/4.5 mcg INHALER IH SCH (09:47)
--- NOTE | 2018-09-14 09:47 | PN ---
Physical Exam: SUBJECTIVE: Patient seen and examined at the bedside. reports feeling better, wants to go home. OBJECTIVE: tolerating room air Vital Signs Period Temp Pulse Resp BP Sys/Walter Pulse Ox Last 24 Hr 98.1 F-98.7 F 72-82 18-18 115-134/60-82 94-97 GENERAL: The patient is awake, alert, and fully oriented, in no acute distress. HEAD: Normal with no signs of trauma. EYES: PERRL, extraocular movements intact, sclera anicteric, conjunctiva clear. No ptosis. ENT: Ears normal, nares patent, oropharynx clear without exudates, moist mucous membranes. NECK: Trachea midline, full range of motion, supple. LUNGS: clear to auscultation HEART: afib ABDOMEN: Soft, nontender, nondistended, normoactive bowel sounds, no guarding, no rebound, no hepatosplenomegaly, no masses. EXTREMITIES: +1 bilateral lower ext edema NEUROLOGICAL: Normal speech, gait not observed. PSYCH: Normal mood, normal affect. SKIN: Warm, dry, normal turgor, no rashes or lesions noted Laboratory Results - last 24 hr 09/13/18 05:25 Neutrophils % (Manual) 93.1 H Band Neutrophils % 0.0 Lymphocytes % (Manual) 2.9 L D Monocytes % (Manual) 2 L Eosinophils % (Manual) 0.0 Basophils % (Manual) 0.0 Myelocytes % (Man) 1 D Promyelocytes % (Man) 0 Blast Cells % (Manual) 0 Nucleated RBC % 0 Metamyelocytes 0 Hypochromia 0 Platelet Estimate Normal Platelet Comment Present Polychromasia 1+ Poikilocytosis 0 Anisocytosis 0 Microcytosis 0 Macrocytosis 0 Active Medications Generic Name Dose Route Start Last Admin Trade Name Freq PRN Reason Stop Dose Admin Acetaminophen 650 mg 09/07/18 22:10 09/12/18 02:01 Tylenol - PO 650 mg Q6H PRN Administration FEVER Al Hydroxide/Mg Hydroxide 30 ml 09/09/18 22:21 09/10/18 20:41 Mylanta Oral Suspension - PO 30 ml Q6H PRN Administration DYSPEPSIA Albuterol Sulfate 1 amp 09/07/18 22:10 09/13/18 22:36 Ventolin 0.083% Nebulizer Soln - NEB 1 amp Q6H PRN Administration SHORT OF BREATH/WHEEZING Albuterol Sulfate 1 amp 09/08/18 08:00 09/13/18 20:05 Ventolin 0.083% Nebulizer Soln - NEB 1 amp RQID CHUCK Administration Amlodipine Besylate 10 mg 09/08/18 10:00 09/13/18 10:05 Norvasc - PO 10 mg DAILY CHUCK Administration Apixaban 5 mg 09/13/18 10:00 09/13/18 23:06 Eliquis - PO 5 mg BID CHUCK Administration Artificial Tears 1 drop 09/09/18 22:21 09/12/18 09:19 Artificial Tears OU 1 drop Q6H PRN Administration DRY EYES Atorvastatin Calcium 20 mg 09/08/18 22:00 09/13/18 23:06 Lipitor - PO 20 mg HS CHUCK Administration Budesonide/Formoterol Fumarate 2 puff 09/07/18 22:30 09/13/18 23:38 Symbicort 160/4.5mcg - IH 2 puff BID CHUCK Administration Clonidine 0.2 mg 09/08/18 10:00 09/13/18 23:06 Catapres - PO 0.2 mg QID CHUCK Administration Docusate Sodium 100 mg 09/08/18 16:36 09/09/18 13:44 Colace - PO 100 mg Q12H PRN Administration CONSTIPATION Doxepin HCl 75 mg 09/08/18 22:00 09/13/18 23:06 Sinequan - PO 75 mg HS CHUCK Administration Guaifenesin 10 ml 09/07/18 22:10 09/14/18 05:43 Robitussin Dm - PO 10 ml Q4H PRN Administration COUGH Piperacillin Sod/Tazobactam 50 mls @ 100 mls/hr 09/08/18 02:00 09/14/18 01:26 Sod 3.375 gm/ Dextrose IVPB 100 mls/hr Q8H-IV CHUCK Administration Protocol Ipratropium [place] 1 amp 09/08/18 10:39 09/13/18 06:31 Atrovent 0.02% Nebulizer - NEB 09/15/18 10:39 1 amp Q6H PRN Administration DYSPEPSIA Lorazepam 4 mg 09/12/18 10:15 09/14/18 05:44 Ativan - PO 4 mg TID CHUCK Administration Methylprednisolone Sodium Succinate 40 mg 09/14/18 11:00 Solu-Medrol - IVPUSH Q12H CHUCK Dextroamphetamine/ 1 each 09/12/18 14:00 09/14/18 06:31 Amphetamine ( PO 1 each Adderall) 30 Mg Tab TID CHUCK Administration (Pt's Own) Senna/Docusate Sodium 2 tablet 09/08/18 16:36 Pericolace - PO HS PRN CONSTIPATION Tramadol HCl 50 mg 09/08/18 16:15 09/13/18 23:36 Ultram - PO 50 mg Q8H PRN Administration PAIN LEVEL 6-10 ASSESSMENT/PLAN:
--- NOTE | 2018-09-14 10:13 | PN ---
Progress Note, Physician History of Present Illness: pulmonary alert,no distress,-sob,-cough,-hemoptysis - Current Medication List Current Medications: Active Medications Acetaminophen (Tylenol -) 650 mg PO Q6H PRN PRN Reason: FEVER Last Admin: 09/12/18 02:01 Dose: 650 mg Al Hydroxide/Mg Hydroxide (Mylanta Oral Suspension -) 30 ml PO Q6H PRN PRN Reason: DYSPEPSIA Last Admin: 09/10/18 20:41 Dose: 30 ml Albuterol Sulfate (Ventolin 0.083% Nebulizer Soln -) 1 amp NEB Q6H PRN PRN Reason: SHORT OF BREATH/WHEEZING Last Admin: 09/13/18 22:36 Dose: 1 amp Albuterol Sulfate (Ventolin 0.083% Nebulizer Soln -) 1 amp NEB RQID [facility] Last Admin: 09/13/18 20:05 Dose: 1 amp Amlodipine Besylate (Norvasc -) 10 mg PO DAILY [facility] Last Admin: 09/14/18 09:46 Dose: 10 mg Apixaban (Eliquis -) 5 mg PO BID [facility] Last Admin: 09/14/18 09:46 Dose: 5 mg Artificial Tears (Artificial Tears) 1 drop OU Q6H PRN PRN Reason: DRY EYES Last Admin: 09/12/18 09:19 Dose: 1 drop Atorvastatin Calcium (Lipitor -) 20 mg PO [facility] Last Admin: 09/13/18 23:06 Dose: 20 mg Budesonide/Formoterol Fumarate (Symbicort 160/4.5mcg -) 2 puff IH BID [facility] Last Admin: 09/14/18 09:47 Dose: 2 puff Clonidine (Catapres -) 0.2 mg PO QID [facility] Last Admin: 09/14/18 09:46 Dose: 0.2 mg Docusate Sodium (Colace -) 100 mg PO Q12H PRN PRN Reason: CONSTIPATION Last Admin: 09/09/18 13:44 Dose: 100 mg Doxepin HCl (Sinequan -) 75 mg PO HS [facility] Last Admin: 09/13/18 23:06 Dose: 75 mg Guaifenesin (Robitussin Dm -) 10 ml PO Q4H PRN PRN Reason: COUGH Last Admin: 09/14/18 05:43 Dose: 10 ml Piperacillin Sod/Tazobactam (Sod 3.375 gm/ Dextrose) 50 mls @ 100 mls/hr IVPB Q8H-IV CHUCK; Protocol Last Admin: 09/14/18 09:45 Dose: 100 mls/hr Ipratropium [place] (Atrovent 0.02% Nebulizer -) 1 amp NEB Q6H PRN PRN Reason: DYSPEPSIA Stop: 09/15/18 10:39 Last Admin: 09/13/18 06:31 Dose: 1 amp Lorazepam (Ativan -) 4 mg PO TID CHUCK Last Admin: 09/14/18 05:44 Dose: 4 mg Methylprednisolone Sodium Succinate (Solu-Medrol -) 40 mg IVPUSH Q12H CHUCK Dextroamphetamine/Amphetamine ( Adderall) 30 Mg Tab (Pt's Own) 1 each PO TID CHUCK Last Admin: 09/14/18 06:31 Dose: 1 each Senna/Docusate Sodium (Pericolace -) 2 tablet PO HS PRN PRN Reason: CONSTIPATION Tramadol HCl (Ultram -) 50 mg PO Q8H PRN PRN Reason: PAIN LEVEL 6-10 Last Admin: 09/13/18 23:36 Dose: 50 mg - Objective Vital Signs: Vital Signs Temperature 98.7 F 09/14/18 09:02 Pulse Rate 76 09/14/18 09:02 Respiratory Rate 18 09/14/18 09:02 Blood Pressure 125/71 09/14/18 09:02 O2 Sat by Pulse Oximetry (%) 97 09/14/18 09:02 Constitutional: Yes: Well Nourished, Calm Eyes: Yes: WNL HENT: Yes: WNL Neck: Yes: WNL Cardiovascular: Yes: Regular Rate and Rhythm, S1, S2 Respiratory: Yes: Rales (few crackles on r) Gastrointestinal: Yes: Normal Bowel Sounds, Soft Extremities: Yes: WNL Edema: Yes Labs: CBC, BMP Problem List - Problems (1) Hemoptysis Code(s): R04.2 - HEMOPTYSIS (2) Pneumonia Code(s): J18.9 - PNEUMONIA, UNSPECIFIED ORGANISM Qualifiers: (3) Productive cough Code(s): R05 - COUGH (4) SOB (shortness of breath) Code(s): R06.02 - SHORTNESS OF BREATH (5) Head injury Code(s): S09.90XA - UNSPECIFIED INJURY OF HEAD, INITIAL ENCOUNTER Qualifiers: Encounter type: initial encounter Qualified Code(s): S09.90XA - Unspecified injury of head, initial encounter (6) Adult ADHD (attention deficit hyperactivity disorder) Code(s): F90.0 - ATTN-DEFCT HYPERACTIVITY DISORDER, PREDOM INATTENTIVE TYPE (7) Bronchiectasis Code(s): J47.9 - BRONCHIECTASIS, UNCOMPLICATED (8) Hyperlipidemia Code(s): E78.5 - HYPERLIPIDEMIA, UNSPECIFIED (9) Hypertension Code(s): I10 - ESSENTIAL (PRIMARY) HYPERTENSION Assessment/Plan IMP PNEUMONIA SUPERIMPOSED ON CHRONIC LUNG DISEASE ASTHMA/BRONCHIECTASIS/ILD IMPROVED SUPPLEMENTAL O2 HEMOPTYSIS RESOLVED TRAUMATIC BRAIN INJURY HTN HLD ATTENTION DEFICIT DISORDER PLAN ABX PER ID INHALED BROCHODILATORS PREDNISONE NO OBJECTION TO DISCHARGE FROM PULMONARY STANDPOINT CHEST X-RAY AMBULATORY O2 SAT DR SEO Problem List - Problems (1) Hemoptysis Code(s): R04.2 - HEMOPTYSIS (2) Pneumonia Code(s): J18.9 - PNEUMONIA, UNSPECIFIED ORGANISM Qualifiers: (3) Productive cough Code(s): R05 - COUGH (4) SOB (shortness of breath) Code(s): R06.02 - SHORTNESS OF BREATH (5) Head injury Code(s): S09.90XA - UNSPECIFIED INJURY OF HEAD, INITIAL ENCOUNTER Qualifiers: Encounter type: initial encounter Qualified Code(s): S09.90XA - Unspecified injury of head, initial encounter (6) Adult ADHD (attention deficit hyperactivity disorder) Code(s): F90.0 - ATTN-DEFCT HYPERACTIVITY DISORDER, PREDOM INATTENTIVE TYPE (7) Bronchiectasis Code(s): J47.9 - BRONCHIECTASIS, UNCOMPLICATED (8) Hyperlipidemia Code(s): E78.5 - HYPERLIPIDEMIA, UNSPECIFIED (9) Hypertension Code(s): I10 - ESSENTIAL (PRIMARY) HYPERTENSION
[2018-09-14] MEDS ORDERED: methylPREDNISolone NA SUCC 40 MG/1 ML VIAL IVPUSH SCH (11:00)
[2018-09-14] MEDS: traMADol HCL 50 MG TABLET PO PRN (13:32)
[2018-09-14] MEDS ORDERED: NYSTATIN 500,000 UNITS/5 ML SUSPENSION PO SCH (13:36)
[2018-09-14] MEDS ORDERED: PIPERACILLIN/TAZOB 2.25 GM 2.25 GM in DEXTROSE 5%-WATER - 50 ML IVPB SCH (14:00)
[2018-09-14 14:42] VITALS: PULSE 99
--- NOTE | 2018-09-14 15:13 | DS ---
Physical Exam: SUBJECTIVE: Patient seen and examined at the bedside. present. discharge instructions reviewed with both and patient. stressed importance of follow up with cardiology. OBJECTIVE: Vital Signs Period Temp Pulse Resp BP Sys/Walter Pulse Ox Last 24 Hr 98.1 F-98.7 F 76-99 18-18 115-134/60-82 92-97 PHYSICAL EXAM GENERAL: The patient is awake, alert, and fully oriented, in no acute distress. HEAD: Normal with no signs of trauma. EYES: PERRL, extraocular movements intact, sclera anicteric, conjunctiva clear. ENT: Ears normal, nares patent, oropharynx clear without exudates, moist mucous membranes. NECK: Trachea midline, full range of motion, supple. LUNGS: Breath sounds equal, clear to auscultation bilaterally, no wheezes, no crackles HEART: Regular rate and rhythm ABDOMEN: Soft, nontender, nondistended, normoactive bowel sounds, no guarding, no rebound, no hepatosplenomegaly, no masses. EXTREMITIES: bilateral lower ext edema +1 NEUROLOGICAL: Normal speech, gait not observed. PSYCH: Normal mood, normal affect. SKIN: Warm, dry, normal turgor, no rashes or lesions noted. PRE HOSPITAL COURSE: Patient is a 67 year old male with history significant for traumatic brain injury, attention deficit disorder(on adderal), asthma/bronchiectasis (on albuterol and advair), hypertension(on amlodipine) and hyperlipidemia who presents with 2 days of SOB, productive cough of yellow sputum, lightheadedness and anxiety. Pt also reported he had 1 episode of bloody sputum and fever with temperature maximum of 102. In the ER he had wheezing and crackles. He was treated with duonebulizers, IV antibiotics with one dosage of IV Azithromycin 500 mg, ceftriaxone 1 gm and methylprednisolone 125 mg. He had a normal ABG, initially was placed on a bipap machine and weaned off. Labs notable for a normal WBC and lactic acid level, BNP 2157. Influenzae A and B were negative. He was admitted for further medical management. HOSPITALIZATION BY PROBLEM LIST: Pulm: Acute hypoxic respiratory failure secondary to exacerbation of chronic bronchiectasis vs asthma - resolved. saturating 94% on RA. treated with solumdedrol and transitioned to Prednisone PO. pulmonary f/u as an outpatient. Hemopytsis - Resolved. No further hemoptysis Pneumonia - resolved. Completed a full course of Zosyn. Afebrile, normal WBC. No further antibiotics per ID. Cardiology: New diagnosis of Paroxysmal Afib: cardiology service evaluated the patient and patient was initiated on Eliquis BId.. Echo reviewed. Patient to follow up with cardiology outpatient. Will need EKGs and possible longer term halter monitoring. Dyslipidemia. chronic On statin therapy Hypertension. controlled. continue home medications. Psyche: Anxiety: continue home ativan. DISCHARGE: Discharge home with outpatient follow up with cardiology and pulmonary. Referrals given and all medications called in to patient's home pharmacy. Date of Admission:09/06/18 Date of Discharge: 09/14/18 Minutes to complete discharge: 60 Discharge Summary Reason For Visit: PNEUMONIA Current Active Problems Anxiety disorder (Acute) Bronchiectasis with (acute) exacerbation (Acute) Chronic headache disorder (Acute) Diastolic CHF (Acute) [place] cardiac risk >20% in next 10 years (Acute) Hemoptysis (Acute) Hiatal hernia (Acute) Pneumonia (Acute) Prophylactic measure (Acute) SOB (shortness of breath) (Acute) Condition: Improved - Instructions Diet, Activity, Other Instructions: Mr. Cowart: You were admitted for COPD exacerbation. During hour hospitalization you were seen by the asic engineer and by the laborer/grade check. You were found to have new onset atrial fibrillation. Atrial fibrillation is an irregular heart rate that can increase your risk of strokes. Therefore, in order to prevent that from happening wer have started you on Eliquis 5mg twice daily. We recommend the following: PULMONARY: COPD Exacerbation Your oxygen saturations are stable and we have treated you with IV antibiotics and Solumderol. You have completed the antibiotics and will not be sending you home without any further antibiotics. We will be sending you home with Prednisone as follows: Prednisone 40mg DAILY for three days (two pills of the 20mg), take on 09/15/2018 , 09/16/2018 and 09/17/2018 Prednisone 20mg DAILY for three days (one pill of the 20mg), take on 09/18/2018, 09/19/2018 and 09/20/2018 (last dose) CARDIAC: NEW ONSET ATRIAL FIBRILLATION Atrial fibrillation is an irregular heart rate that puts you at an increase risk of stroke. Please continue this medication and follow with your asic engineer. you were seen by the asic engineer service and we initiated you on anticoagulation. please continue to monitor for any bleeding and report it immediately to your primary care doctor. Please follow up with your asic engineer. If you do not have a asic engineer, we have included contact information with the asic engineer that saw you while you were hospitalized. You will need serial monitoring as outpatient with periodic ECGs and Holters. Thank you for allowing us to care for you. If you have questions, concerns or issues, please call me: Cristy Chen [facility] [phone] Referrals: Bhupinder Gonzalez MD [Staff Physician] - 1 Week Kuldip Huston MD [Staff Physician] - 1 Week Disposition: HOME - Home Medications Comprehensive Discharge Medication List: Ambulatory Orders Amlodipine Besylate [Norvasc -] 10 mg PO DAILY 12/24/11 Tramadol HCl 50 mg PO TID PRN #30 tablet MDD 150 MG 02/18/17 Clonidine HCl 0.2 mg PO QID 11/14/17 Dextroamphetamine/Amphetamine [Adderall 10 mg Tablet] 30 mg PO TID 11/14/17 Lorazepam [Ativan] 4 mg PO TID MDD 3 11/14/17 Acetaminophen 8 Hour 650 mg PO TID PRN 09/06/18 Apixaban [Eliquis -] 5 mg PO BID #60 tablet 09/14/18 Nystatin Oral Suspension - [Nystatin Oral Susp 678954 Units/5 ML -] 500,000 units PO Q6HPO #10 cup 09/14/18 predniSONE [Deltasone -] 40 mg PO DAILY #15 tablet 09/14/18 This patient is new to me today: Yes Date on this admission: 09/14/18 Emergency Visit: Yes ED Registration Date: 09/06/18 Care time: The patient presented to the Emergency Department on the above date and was hospitalized for further evaluation of their emergent condition. Critical Care patient: No - Discharge Referral Referred to [facility] Med [facility] No
[2018-09-14 15:18] VITALS: BP 118/62; TEMP 98
[2018-09-15] MEDS ORDERED: predniSONE 20 MG TABLET (UD) PO SCH (10:00)
== END 2018-09-14 17:37 | disposition home health service (06) | DRG 193 ==
LOC: FER 12:39 → FM/S 14:47 → J8W 09-07 21:56 → J4W 09-08 20:48
PROVIDERS: ADMIT Internal Medicine; ATTEND Nurse Practitioner Family
PROC: 5A09457 Assistance with Respiratory Ventilation, 24-96 Consecutive Hours, Continuous Positive Airway Pressure (ICD-10-PCS; principal; 2018-09-06)
DX: J18.9 Pneumonia, unspecified organism (principal); J96.01 Acute respiratory failure with hypoxia; I50.30 Unspecified diastolic (congestive) heart failure; J45.901 Unspecified asthma with (acute) exacerbation; J44.0 Chronic obstructive pulmonary disease with (acute) lower respiratory infection; J44.1 Chronic obstructive pulmonary disease with (acute) exacerbation; E78.5 Hyperlipidemia, unspecified; I48.0 Paroxysmal atrial fibrillation; I11.0 Hypertensive heart disease with heart failure; F41.9 Anxiety disorder, unspecified; F98.8 Other specified behavioral and emotional disorders with onset usually occurring in childhood and adolescence; F90.0 Attention-deficit hyperactivity disorder, predominantly inattentive type; K44.9 Diaphragmatic hernia without obstruction or gangrene; R05 Cough; Z29.9 Encounter for prophylactic measures, unspecified; G43.909 Migraine, unspecified, not intractable, without status migrainosus; D72.829 Elevated white blood cell count, unspecified
CPT/HCPCS: 36415; 36600; 71045-TC-FY; 71046-TC-FY; 71260-TC; 80048; 80053; 80061; 81003; 82552; 82803; 83605; 83615; 83625; 83735; 83880; 84100; 84484; 85025; 85027; 87040; 87070; 87086; 87205; 87804; 87899; 93005; 93306-TC; 93970-TC; 94640; 94660; 94761; 97116-GP; 97161-GP; 99285-25; J0131; J0735; J1644

== ENCOUNTER 2018-11-12 13:43 | Emergency (ER) | payer OTHER ==
[2018-11-12 13:49] VITALS: BP 137/82; PULSE 95; TEMP 99; BMI 27.0
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
== END 2018-11-12 14:48 | disposition home or self-care (01) ==
LOC: FER 13:43
PROC: 2W3CX1Z Immobilization of Right Lower Arm using Splint (ICD-10-PCS; principal; 2018-11-12)
DX: S63.501A Unspecified sprain of right wrist, initial encounter (principal); X50.9XXA Other and unspecified overexertion or strenuous movements or postures, initial encounter; Y93.64 Activity, baseball; Y92.320 Baseball field as the place of occurrence of the external cause; Y99.8 Other external cause status; I10 Essential (primary) hypertension; E78.5 Hyperlipidemia, unspecified; I48.91 Unspecified atrial fibrillation; Z79.01 Long term (current) use of anticoagulants; Z87.820 Personal history of traumatic brain injury
CPT/HCPCS: 73110-TC-RT-FY; 99282-25

== ENCOUNTER 2019-01-15 20:52 | Emergency (ER) | payer OTHER ==
[2019-01-15 21:00] VITALS: BP 123/76; PULSE 85; TEMP 98.4; BMI 25.8
--- NOTE | 2019-01-15 22:20 | PDOC ---
Documentation entered by Nellie Benjamin SCRIBE, acting as scribe for Estefania Dixon MD. Estefania Dixon MD: This documentation has been prepared by the fritzibe, Nellie Benjamin SCRIBE, under my direction and personally reviewed by me in its entirety. I confirm that the documentation accurately reflects all work, treatment, procedures, and medical decision making performed by me. History of Present Illness - General Chief Complaint: Urinary Catheter Problem Stated Complaint: URINARY PROBLEM Time Seen by Provider: 01/15/19 21:04 - History of Present Illness Initial Comments: This 68-year-old man with a history of BPH/"mild" hypospadias presents with urinary retention. He had a urinary catheter placed in his urologist's office ( ) 3 days ago. Patient states that this was performed because he had "inadequate urinary stream". He did well until today when he developed abdominal distention and discomfort with sensation of not being able to empty his bladder. He denies fever/chills, nausea/vomiting or back pain. Patient states that he is scheduled for urological procedure in 3 days (Thursday, January 18) Past History - Past Medical History Allergies/Adverse Reactions: Allergies Allergy/AdvReac Type Severity Reaction Status Date / Time lamotrigine [From Lamictal] Allergy Intermediate Verified 11/14/17 16:04 nickel Allergy Verified 11/14/17 16:04 trazodone Allergy Verified 11/14/17 16:04 alprazolam [From Xanax] AdvReac Intermediate Verified 09/07/18 00:34 gatifloxacin [From Tequin] AdvReac Intermediate DIARRHEA Verified 11/14/17 16:04 quetiapine fumarate AdvReac Intermediate DIZZINESS, Verified 11/14/17 16:03 [From Seroquel] NIGHTMARES zolpidem tartrate AdvReac Mild DEPRESSION, Verified 11/14/17 16:03 [From Ambien] DISORIENTED Home Medications: Ambulatory Orders Amlodipine Besylate [Norvasc -] 10 mg PO DAILY 12/24/11 Clonidine HCl 0.2 mg PO QID 11/14/17 Lorazepam [Ativan] 4 mg PO TID MDD 3 11/14/17 Apixaban [Eliquis -] 5 mg PO BID #60 tablet 09/14/18 Anemia: No Asthma: Yes Cancer: No Cardiac Disorders: No CVA: No COPD: Yes CHF: No Dementia: No Diabetes: No GI Disorders: Yes (GERD) Disorders: Yes (MILD HYPOSPADIUS) HTN: Yes Hypercholesterolemia: Yes Liver Disease: No Psychiatric Problems: Yes (ADD) Seizures: No Thyroid Disease: No - Surgical History Abdominal Surgery: No Appendectomy: No Cardiac Surgery: No Cholecystectomy: No Lung Surgery: No Neurologic Surgery: No Orthopedic Surgery: Yes (LT SHOULDER SX) - Immunization History Immunization Up to Date: Yes - Suicide/Smoking/Psychosocial Hx Smoking Status: No Smoking History: Never smoked Have you smoked in the past 12 months: No Number of Cigarettes Smoked Daily: 0 'Breaking Loose' booklet given: 06/07/16 Hx Alcohol Use: No Drug/Substance Use Hx: No Substance Use Type: None Hx Substance Use Treatment: No Review of Systems - Review of Systems Able to Perform ROS?: Yes Comments:: 12 point review of systems is negative except for what is noted in the history of present illness *Physical Exam - Vital Signs Last Vital Signs Temp Pulse Resp BP Pulse Ox 98.4 F 85 18 123/76 97 01/15/19 20:54 01/15/19 20:54 01/15/19 20:54 01/15/19 20:54 01/15/19 20:54 - Physical Exam Comments: GENERAL:exam performed after patient had urinary catheter flushed with resumption of urine flow: Alert and oriented3, no distress HEAD: Normal with no signs of trauma. EYES: PERRLA, EOMI, sclera anicteric, conjunctiva clear. ABDOMEN:.normal bowel sounds No guarding,tenderness or rebound.No masses No distention. EXTREMITIES: Normal range of motion, no edema. No clubbing or cyanosis. No erythema, or tenderness. NEUROLOGICAL: Cranial nerves II through XII grossly intact. Normal speech. No focal neurological deficits. MUSCULOSKELETAL: Back non-tender to palpation, no CVA tenderness SKIN: Warm, Dry, normal turgor, no rashes or lesions noted. Medical Decision Making - Medical Decision Making This 68-year-old man with BPH/hypospadias, awaiting urologic procedure in 3 days , presents with urinary retention few days after placement of urinary catheter. Under sterile conditions, catheter was flushed by nursing staff with sterile normal saline. After this, patient had resumption of urinary flow with approximately 300 mL urine collected. All symptoms of urinary retention resolved. Patient will be discharged with urinary catheter and leg bag in place. He will contact his urologist on Thursday, January 17 to confirm procedure on the (on questioning, patient was unsure where and when he was to report for his procedure). He should return to the emergency room if he has any further abdominal distention/discomfort/inability to empty his bladder *DC/Admit/Observation/Transfer Diagnosis at time of Disposition: Urinary retention - Discharge Dispostion Disposition: HOME Condition at time of disposition: Stable - Referrals Referrals: Deacon Lujan MD [Primary Care Provider] - Toan Haro MD [Staff Physician] - - Patient Instructions Printed Discharge Instructions: DI for Urinary Retention in Men Additional Instructions: keep catheter and leg bag in place as previously follow-up on Thursday for procedure by Dr Haro Return to ER if you have any further problems with urinaryretention - Post Discharge Activity
== END 2019-01-15 22:23 | disposition home or self-care (01) ==
LOC: FER 20:52
DX: R33.9 Retention of urine, unspecified (principal); Z46.6 Encounter for fitting and adjustment of urinary device; Q54.9 Hypospadias, unspecified; N40.0 Benign prostatic hyperplasia without lower urinary tract symptoms; J45.909 Unspecified asthma, uncomplicated; J44.9 Chronic obstructive pulmonary disease, unspecified; K21.9 Gastro-esophageal reflux disease without esophagitis; I10 Essential (primary) hypertension; E78.00 Pure hypercholesterolemia, unspecified; F98.8 Other specified behavioral and emotional disorders with onset usually occurring in childhood and adolescence
CPT/HCPCS: 99282-25

== ENCOUNTER 2019-01-20 15:18 | Inpatient (IN) | payer OTHER ==
--- NOTE | 2019-01-20 15:55 | PDOC ---
History of Present Illness - General Chief Complaint: Shortness of Breath Stated Complaint: SHORTNESS OF BREATH Time Seen by Provider: 01/20/19 15:47 - History of Present Illness Initial Comments: 01/20/19 16:25 The patient is a 68 year old male with a history of HTN, HLD, Chronic Consolidations, Bronchiectasis, COPD who presents for evaluation of shortness of breath. The patient reports a several day history of worsening shortness of breath with associated increased sputum production. He was being evaluated by his can handler Dr. Murray who referred the patient to the ED for admission. The patient reports fevers to 100.5 at home as well but otherwise denies chest pain, nausea, vomiting, abdominal pain, or changes with urination or bowel movements. Past History - Past Medical History Allergies/Adverse Reactions: Allergies Allergy/AdvReac Type Severity Reaction Status Date / Time alprazolam [From Xanax] AdvReac Intermediate Verified 01/20/19 15:51 gatifloxacin [From Tequin] AdvReac Intermediate DIARRHEA Verified 01/20/19 15:51 lamotrigine [From Lamictal] AdvReac Intermediate Verified 01/20/19 15:51 quetiapine fumarate AdvReac Intermediate DIZZINESS, Verified 01/20/19 15:51 [From Seroquel] NIGHTMARES zolpidem tartrate AdvReac Mild DEPRESSION, Verified 01/20/19 15:51 [From Ambien] DISORIENTED nickel AdvReac Verified 01/20/19 15:51 trazodone AdvReac Verified 01/20/19 16:05 Home Medications: Ambulatory Orders Amlodipine Besylate [Norvasc -] 10 mg PO DAILY 12/24/11 Clonidine HCl 0.2 mg PO QID 11/14/17 Lorazepam [Ativan] 4 mg PO TID MDD 3 11/14/17 Apixaban [Eliquis -] 5 mg PO BID #60 tablet 09/14/18 Anemia: No Asthma: Yes Cancer: No Cardiac Disorders: No CVA: No COPD: No CHF: No Dementia: No Diabetes: No GI Disorders: Yes (GERD) Disorders: No HTN: Yes Hypercholesterolemia: Yes Liver Disease: No Psychiatric Problems: Yes (ADD) Seizures: No Thyroid Disease: No - Surgical History Abdominal Surgery: No Appendectomy: No Cardiac Surgery: No Cholecystectomy: No Lung Surgery: No Neurologic Surgery: No Orthopedic Surgery: Yes (LT SHOULDER SX) - Immunization History Immunization Up to Date: Yes - Suicide/Smoking/Psychosocial Hx Smoking Status: No Smoking History: Former smoker Have you smoked in the past 12 months: No Number of Cigarettes Smoked Daily: 0 Information on smoking cessation initiated: No 'Breaking Loose' booklet given: 06/07/16 Hx Alcohol Use: No Drug/Substance Use Hx: No Substance Use Type: None Hx Substance Use Treatment: No Review of Systems - Review of Systems Comments:: 01/20/19 16:29 Constitutional: Fevers, Fatigue. No chills, malaise HEENT: No Rhinorrhea, nasal congestion, visual changes Cardiovascular: No chest pain, syncope, palpitations, lightheadedness Respiratory: Cough, SOB. Increased sputum production. No Hemoptysis, Gastrointestinal: No Abdominal pain, Nausea, Vomiting, Constipation, Diarrhea, Melena Genitourinary: No Dysuria, Frequency, Urgency, Hesitancy, Hematuria, Flank pain Musculoskeletal: No Myalgia, arthralgia Skin: No rashes, itching, bruising, pallor Neurologic: No Headache, Dizziness, Numbness, Weakness, or Tingling Psychiatric: No Hallucinations. No SI or HI *Physical Exam - Vital Signs Last Vital Signs Temp Pulse Resp BP Pulse Ox 98.8 F 80 22 H 126/75 88 L 01/20/19 15:20 01/20/19 15:20 01/20/19 15:20 01/20/19 15:20 01/20/19 15:20 - Physical Exam Comments: 01/20/19 16:30 General Appearance: Nourished. No Apparent Distress HEENT: No Pharyngeal Erythema, Tonsillar Exudate, Tonsillar Erythema Neck: No Cervical Lymphadenopathy Respiratory/Chest: Poor air movement with inspirtory and expiratory wheezing noted on exam. Bilateral rhonchi and bibasilar ralse. Cardiovascular: Regular Rhythm, Regular Rate. No Murmur, Gallops, Rubs Gastrointestinal/Abdominal: Normal Bowel Sounds, Soft. No Guarding, Rebound, Tenderness Musculoskeletal: No CVA Tenderness Extremity: Normal Capillary Refill Integumentary: Normal Color, Dry, Warm Neurologic: Fully Oriented, Alert, Normal Mood/Affect, Normal Response, Heart Score/ECG Review #1 ECG reviewed & interpreted by me at: 18:16 General ECG Interpretation: Sinus Rhythm, Normal Rate, Normal Intervals, No acute ischemic changes ED Treatment Course - LABORATORY CBC & Chemistry Diagram: 01/20/19 16:49 01/20/19 16:49 Medical Decision Making - Medical Decision Making 01/20/19 16:32 The patient is a 68 year old male with a history of HTN, HLD, Chronic Consolidations, Bronchiectasis, COPD who presents for evaluation of shortness of breath. Differential includes but is not limited to: COPD exacerbation, Pneumonia, CHF, Infectious, Metabolic Derangement. Given the patient's history and physical exam, we will obtain a cbc, cmp, troponin, bnp, ekg, blood cultures , abg, chest plain film to evaluate further. We will treat with duonebs, solumedrol, ceftriaxone, Azithromycin and continue to monitor and reassess while here in the ED. 01/20/19 18:08 CBC, cmp, troponin, bnp are unremarkable. Chest plain film demonstrates a new right lower lobe consolidation. The patient will require admission for further monitoring and management. We discussed the case with the admitting team who accepted the patient for admission. *DC/Admit/Observation/Transfer Diagnosis at time of Disposition: COPD with acute bronchitis Pneumonia Qualifiers: Pneumonia type: due to unspecified organism Laterality: unspecified laterality Lung location: unspecified part of lung Qualified Code(s): J18.9 - Pneumonia, unspecified organism - Discharge Dispostion Condition at time of disposition: Stable Decision to Admit order: Yes - Referrals - Patient Instructions - Post Discharge Activity
[2019-01-20] MEDS ORDERED: methylPREDNISolone NA SUCC 125 MG/2 ML VIAL IVPUSH ONE (16:07)
[2019-01-20] MEDS ORDERED: ALBUTEROL SO4 2.5/IPRATROPIUM 0.5 INH SOL 3 ML VIAL.NEB. NEB ONE ×2 (16:07→16:55)
[2019-01-20] MEDS ORDERED: SODIUM CHLORIDE 1,000 ML IV STA (16:15)
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
[2019-01-20] MEDS ORDERED: CEFTRIAXONE 1 GM in DEXTROSE 5%-WATER - 100 ML IVPB ONE (16:39)
[2019-01-20] MEDS ORDERED: AZITHROMYCIN IVPB 500 MG in DEXTROSE 5%-WATER - 250 ML IVPB ONE (16:39)
[2019-01-20] MEDS ORDERED: AZITHROMYCIN IVPB 500 MG/250 ML BAG IVPB ONE (16:56)
[2019-01-20] MEDS ORDERED: CEFTRIAXONE 1 GM/50 ML BAG ONE (16:56)
[2019-01-20] MEDS ORDERED: methylPREDNISolone NA SUCC 125 MG/2 ML VIAL ONE (16:56)
[2019-01-20 17:19] LABS: BASO % 0.7 % (0-2.0); EOS % 3.8 % (0-4.5); HEMATOCRIT 32.6 % (35.4-49); HEMOGLOBIN 10.3 GM/dL (11.7-16.9); LYMPH % 17.1 % (8-40); MCH 22.7 pg (25.7-33.7); MCHC 31.5 g/dl (32.0-35.9); MEAN CELL VOLUME 72.1 fl (80-96); MEAN PLT VOLUME 8.4 fl (7.5-11.1); MONO % 9.5 % (3.8-10.2); NEUT % 68.9 % (42.8-82.8); PLATELET COUNT 339 K/MM3 (134-434); RBC 4.52 M/mm3 (4.00-5.60); RDW 16.5 % (11.9-15.9); WHITE BLOOD COUNT 8.5 K/mm3 (4.0-10.0)
[2019-01-20 17:27] LABS: INR 1.13 (0.83-1.09); PROTHROMBIN TIME (PATIENT) 13.3 SEC (9.7-13.0)
[2019-01-20 17:30] LABS: ACTIVATED PTT 33.5 SECONDS (25.2-36.5)
[2019-01-20 17:30] LABS: ARTERIAL BLD GAS O2 SATURATION 94.4 % (95-98); ARTERIAL BLOOD GAS BASE EXCESS -0.8 meq/l (-2-2); ARTERIAL BLOOD GAS PCO2 33.3 mmHg (35-45); ARTERIAL BLOOD GAS PO2 74.5 mmHg (80-105); ARTERIAL BLOOD GAS pH 7.44 (7.35-7.45); CARBOXYHEMOGLOBIN 0.8 % (0-2)
[2019-01-20 17:33] LABS: ALLENS TEST POSITIVE
[2019-01-20 17:40] LABS: ALBUMIN 3.5 g/dl (3.4-5.0); ALK PHOS 80 U/L (45-117); ANION GAP 6 MMOL/L (8-16); BILIRUBIN,TOTAL 0.1 mg/dL (0.2-1); BLOOD UREA NITROGEN 17.5 mg/dL (7-18); CALCIUM 8.6 mg/dL (8.5-10.1); CHLORIDE 108 mmol/L (98-107); CO2 25 mmol/L (21-32); CREATININE 1.1 mg/dL (0.55-1.3); GLUCOSE,RANDOM 84 mg/dL (74-106); N-TERMINAL BNP 114.1 pg/ml (5-125); POTASSIUM 4.1 mmol/L (3.5-5.1); SGOT/AST 37 U/L (15-37); SGPT/ALT 39 U/L (13-61); SODIUM 138 mmol/L (136-145); TOT PROT 7.3 g/dl (6.4-8.2)
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
--- NOTE | 2019-01-20 18:45 | HP ---
CHIEF COMPLAINT: SOB PCP: Dr. Lujan HISTORY OF PRESENT ILLNESS: The patient is a 68 yo m w/ PMH HTN, HLD, Recurrent PNA w/ chronic infiltrates, bronchiectasis, COPD, Afib? who was sent to the ED from his manager of global's office (Dr. Murray) for progressive SOB for the past 2 days. The patient states that he has been feeling weaker since his episode of PNA in februrary, but began to feel more short of breath starting 2 days ago. In addition to this, the patient also endorses a cough productive of yellow sputum as well as a low grade fever measured to 100.5 at home. The patient stats that his was sick with a cough recently. The patient denies chest pain, abdominal pain, chills, orthopnea, exertional dyspnea. In the ED, the patient was noted to be hypoxic on room air to 88%. This normalized with 3L O2 by NC. a CXR showed a new infiltrate on the right. An ABG showed hypoxemia and a low CO2. The patient was treated with Azithromycin, nebulizers, 125mg solu-medrol. Dr. Murray and Dr. Simpson were consulted from the ED. Patient states that he was diagnosed with a "one second" of Afib during his last admission and was discharged on eliquis. Patient states that he has not been taking it because he believes he does not need it. Of note, the patient states that he has been having trouble urinating recently. Approx 1 week ago, the patient went to see a urologist, who inserted a Gomez catheter and leg bag. Recent Travel: none PAST MEDICAL HISTORY: see HPI PAST SURGICAL HISTORY: orthopedic shoulder injury Social History: Smoking: smoked only one year when he was 17 y/o Alcohol: denies Drugs: remote use of hallucinogens. 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 Family History: non-contributory Allergies alprazolam [From Xanax] Adverse Reaction (Intermediate, Verified 01/20/19 15:51) nightmares gatifloxacin [From Tequin] Adverse Reaction (Intermediate, Verified 01/20/19 15: 51) DIARRHEA lamotrigine [From Lamictal] Adverse Reaction (Intermediate, Verified 01/20/19 15 :51) quetiapine fumarate [From Seroquel] Adverse Reaction (Intermediate, Verified 15:51) DIZZINESS, NIGHTMARES zolpidem tartrate [From Ambien] Adverse Reaction (Mild, Verified 01/20/19 15:51) DEPRESSION, DISORIENTED nickel Adverse Reaction (Verified 01/20/19 15:51) trazodone Adverse Reaction (Verified 01/20/19 16:05) HALLUCINATIONS HOME MEDICATIONS: Home Medications Medication Instructions Recorded Amlodipine Besylate [Norvasc -] 10 mg PO DAILY 12/24/11 Clonidine HCl 0.2 mg PO QID 11/14/17 Lorazepam [Ativan] 4 mg PO TID MDD 3 11/14/17 Apixaban [Eliquis -] 5 mg PO BID #60 tablet 09/14/18 REVIEW OF SYSTEMS CONSTITUTIONAL: Absent: fever, chills, diaphoresis, generalized weakness, malaise, loss of appetite, weight change HEENT: Absent: rhinorrhea, nasal congestion, throat pain, throat swelling, difficulty swallowing, mouth swelling, ear pain, eye pain, visual changes CARDIOVASCULAR: Absent: chest pain, syncope, palpitations, irregular heart rate, lightheadedness , peripheral edema RESPIRATORY: Absent: dyspnea with exertion, orthopnea, wheezing, stridor, hemoptysis GASTROINTESTINAL: Absent: abdominal pain, abdominal distension, nausea, vomiting, diarrhea, constipation, melena, hematochezia GENITOURINARY: Absent: dysuria, frequency, urgency, hesitancy, hematuria, flank pain, genital pain MUSCULOSKELETAL: Absent: myalgia, arthralgia, joint swelling, back pain, neck pain SKIN: Absent: rash, itching, pallor HEMATOLOGIC/IMMUNOLOGIC: Absent: easy bleeding, easy bruising, lymphadenopathy, frequent infections ENDOCRINE: Absent: unexplained weight gain, unexplained weight loss, heat intolerance, cold intolerance NEUROLOGIC: Absent: headache, focal weakness or paresthesias, dizziness, unsteady gait, seizure, mental status changes, bladder or bowel incontinence PSYCHIATRIC: Absent: anxiety, depression, suicidal or homicidal ideation, hallucinations. PHYSICAL EXAMINATION Vital Signs - 24 hr 01/20/19 15:20 Temperature 98.8 F Pulse Rate 80 Respiratory 22 H Rate Blood Pressure 126/75 O2 Sat by Pulse 88 L Oximetry (%) GENERAL: Awake, alert, and fully oriented, in no acute distress. HEAD: Normal with no signs of trauma. EYES: Pupils equal, round and reactive to light, extraocular movements intact, sclera anicteric, conjunctiva clear. No lid lag. EARS, NOSE, THROAT: Ears normal, nares patent, oropharynx clear without exudates. Moist mucous membranes. NECK: Normal range of motion, supple without lymphadenopathy, JVD, or masses. LUNGS: Breath sounds equal, Coarse crackles heard b/l down to the bases. HEART: Regular rate and rhythm, normal S1 and S2 without murmur, rub or gallop. ABDOMEN: Soft, nontender, not distended, normoactive bowel sounds, no guarding, no rebound, no masses. No hepatomegaly or splenomegaly. Gomez catheter in place with leg bag. LOWER EXTREMITIES: 2+ pulses, warm, well-perfused. No calf tenderness. No peripheral edema. NEUROLOGICAL: Cranial nerves II-X intact. Normal speech. PSYCHIATRIC: Cooperative. Good eye contact. Appropriate mood and affect. SKIN: Warm, dry, normal turgor, no rashes or lesions noted, normal capillary refill. Laboratory Results - last 24 hr 01/20/19 01/20/19 01/20/19 16:49 16:49 16:49 WBC 8.5 RBC 4.52 Hgb 10.3 L Hct 32.6 L MCV 72.1 L MCH 22.7 L MCHC 31.5 L RDW 16.5 H Plt Count 339 MPV 8.4 Absolute Neuts (auto) 5.9 Neutrophils % 68.9 D Lymphocytes % 17.1 D Monocytes % 9.5 D Eosinophils % 3.8 D Basophils % 0.7 D Nucleated RBC % 0 PT with INR 13.30 H INR 1.13 H PTT (Actin FS) 33.5 Anticoagulation Therapy Puncture Site ABG pH ABG pCO2 at Pt Temp ABG pO2 at Pt Temp ABG HCO3 ABG O2 Sat (Measured) ABG O2 Content ABG Base Excess Umer Test Carboxyhemoglobin Methemoglobin O2 Delivery Device Oxygen Flow Rate Vent Mode Vent Rate Mechanical Rate Pressure Support Vent Sodium 138 Potassium 4.1 Chloride 108 H Carbon Dioxide 25 Anion Gap 6 L BUN 17.5 Creatinine 1.1 Est GFR (CKD-EPI)AfAm 78.97 Est GFR (CKD-EPI)NonAf 68.13 Random Glucose 84 Calcium 8.6 Total Bilirubin 0.1 L AST 37 ALT 39 Alkaline Phosphatase 80 Creatine Kinase 128 Troponin I < 0.02 B-Natriuretic Peptide 114.1 Total Protein 7.3 Albumin 3.5 01/20/19 17:15 WBC RBC Hgb Hct MCV MCH MCHC RDW Plt Count MPV Absolute Neuts (auto) Neutrophils % Lymphocytes % Monocytes % Eosinophils % Basophils % Nucleated RBC % PT with INR INR PTT (Actin FS) Anticoagulation Therapy No Result Required. Puncture Site Right radial ABG pH 7.44 ABG pCO2 at Pt Temp 33.3 L ABG pO2 at Pt Temp 74.5 L ABG HCO3 22.4 ABG O2 Sat (Measured) 94.4 L ABG O2 Content 12.5 L ABG Base Excess -0.8 Umer Test Positive Carboxyhemoglobin 0.8 Methemoglobin 0.3 O2 Delivery Device No Result Required. Oxygen Flow Rate 6l Vent Mode Aerosol mask Vent Rate No Result Required. Mechanical Rate No Result Required. Pressure Support Vent No Result Required. Sodium Potassium Chloride Carbon Dioxide Anion Gap BUN Creatinine Est GFR (CKD-EPI)AfAm Est GFR (CKD-EPI)NonAf Random Glucose Calcium Total Bilirubin AST ALT Alkaline Phosphatase Creatine Kinase Troponin I B-Natriuretic Peptide Total Protein Albumin ASSESSMENT/PLAN: The patient is a 68 yo m w/ PMH HTN, HLD, Recurrent PNA w/ chronic infiltrates, bronchiectasis, COPD, Afib? who was sent to the ED from his manager of global's office (Dr. Murray) for progressive SOB for the past 2 days. CXR showed PNA. #progressive SOB, cough and low grade fevers 2/2 Pneumonia. -CXR shows new infiltrate -afebrile in the ED -s/p ceftriaxone and azithromycin in ed -will continue above ABX -s/p 125mg solu-medrol in ED -medrol 60mg q6h IV -Duonebs q6h standing -albuterol q4h PRN -will resume home symbicort. -sputum cultures -Pulm consult: Dr. Murray -ID consult: Dr. Simpson #HTN -home norvasc, clonidine verified with the patient. will restart #HLD -will resume home statin #Afib -patient NOT taking eliquis at home and refuses to take it. -explained risks of not taking this medication to the patient, he verbalized understanding and still declines. #FEN -no fluids indicated -lytes WNL -sodium controlled diet #Prophy -Lovenox 40mg SQ daily #Dispo -med surg Visit type - Emergency Visit Emergency Visit: Yes ED Registration Date: 01/20/19 Care time: The patient presented to the Emergency Department on the above date and was hospitalized for further evaluation of their emergent condition. - New Patient This patient is new to me today: Yes Date on this admission: 01/20/19 - Critical Care Critical Care patient: No
[2019-01-20] MEDS: ALBUTEROL SO4 2.5/IPRATROPIUM 0.5 INH SOL 3 ML VIAL.NEB. NEB SCH (18:47)
[2019-01-20] MEDS: methylPREDNISolone NA SUCC 125 MG/2 ML VIAL IVPUSH SCH (21:38)
[2019-01-20] MEDS: LORazepam 1 MG TABLET PO SCH (21:39)
[2019-01-20] MEDS: cloNIDine HCL 0.1 MG TABLET PO SCH (21:40)
[2019-01-20] MEDS ORDERED: PATIENT'S OWN MEDICATION (NON-FORMULARY) (Clonidine Hcl [Clonidine Hcl] 0.2 MG) PO SCH (22:00)
[2019-01-20] MEDS ORDERED: DOXEPIN HCL 25 MG CAPSULE PO SCH (23:00)
[2019-01-20] MEDS ORDERED: MELATONIN 5 MG TABLETS PO ONE (23:42)
[2019-01-21 00:04] VITALS: BMI 19.9
[2019-01-21] MEDS ORDERED: LORazepam 2 MG/ML SDV VIAL IVPUSH ONE (00:24)
[2019-01-21] MEDS ORDERED: ACETAMINOPHEN 325 MG TABLET (FP) PO ONE (00:51)
[2019-01-21] MEDS ORDERED: HALOPERIDOL LACTATE 5 MG/ML IM ONE (01:05)
[2019-01-21] MEDS: methylPREDNISolone NA SUCC 125 MG/2 ML VIAL IVPUSH SCH ×4 (03:50→21:09)
[2019-01-21] MEDS: LORazepam 1 MG TABLET PO SCH ×3 (06:14→21:10)
[2019-01-21] MEDS: ALBUTEROL SO4 2.5/IPRATROPIUM 0.5 INH SOL 3 ML VIAL.NEB. NEB SCH ×4 (06:45→20:10)
[2019-01-21 07:52] LABS: HEMATOCRIT 29.9 % (35.4-49); HEMOGLOBIN 9.5 GM/dL (11.7-16.9); MCH 22.8 pg (25.7-33.7); MCHC 31.7 g/dl (32.0-35.9); MEAN CELL VOLUME 71.9 fl (80-96); MEAN PLT VOLUME 8.5 fl (7.5-11.1); RBC 4.16 M/mm3 (4.00-5.60); RDW 15.8 % (11.9-15.9); WHITE BLOOD COUNT 7.2 K/mm3 (4.0-10.0)
[2019-01-21 08:17] LABS: INR 1.14 (0.83-1.09); PROTHROMBIN TIME (PATIENT) 13.5 SEC (9.7-13.0)
[2019-01-21 08:20] LABS: ACTIVATED PTT 30.7 SECONDS (25.2-36.5); PLATELET COUNT 295 K/MM3 (134-434)
[2019-01-21 08:25] LABS: ALBUMIN 2.9 g/dl (3.4-5.0); BILIRUBIN,TOTAL 0.2 mg/dL (0.2-1); BLOOD UREA NITROGEN 16.8 mg/dL (7-18); MAGNESIUM 2.3 mg/dL (1.8-2.4); PHOSPHOROUS 2.6 mg/dL (2.5-4.9); POTASSIUM 4.1 mmol/L (3.5-5.1); TOT PROT 6.6 g/dl (6.4-8.2)
[2019-01-21] MEDS ORDERED: cefTRIAXone SODIUM 1 GM VIAL ONE (08:43)
[2019-01-21] MEDS ORDERED: DEXTROSE 5%-WATER - 50 ML IVPB ONE (08:44)
[2019-01-21] MEDS: cloNIDine HCL 0.1 MG TABLET PO SCH ×3 (09:44→21:11)
[2019-01-21] MEDS: PANTOPRAZOLE 40 MG TABLET (FP) PO SCH ×2 (09:45→10:01)
[2019-01-21] MEDS: CEFTRIAXONE 1 GM in DEXTROSE 5%-WATER - 50 ML IVPB SCH (09:45)
[2019-01-21] MEDS: ENOXAPARIN NA (PORCINE) 40 MG/0.4 ML DISP.SYRIN SQ SCH (09:45)
[2019-01-21] MEDS: AZITHROMYCIN IVPB 250 MG in DEXTROSE 5%-WATER - 250 ML IVPB SCH (10:15)
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
--- NOTE | 2019-01-21 11:55 | EKG ---
Test Reason : Blood Pressure : / mmHG Vent. Rate : 078 BPM Atrial Rate : 078 BPM P-R Int : 116 ms QRS Dur : 098 ms QT Int : 392 ms P-R-T Axes : -28 015 052 degrees QTc Int : 446 ms ECTOPIC ATRIAL RHYTHM Confirmed by TIFFANIE FELDMAN MD ([id number]) on 01/21/2019 11:55:17 AM Referred By: Confirmed By:TIFFANIE FELDMAN MD
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
[2019-01-21] MEDS: traMADol HCL 50 MG TABLET PO PRN ×2 (14:27→22:58)
--- NOTE | 2019-01-21 15:57 | PN ---
Progress Note (short form) - Note Progress Note: PULMONARY CONSULTATION DICTATED 01/21/19 IMP ACUTE HYPOXEMIC RESPIRATORY FAILURE PNEUMONIA COPD BRONCHIECTASIS H/O TRAUMATIC BRAIN INJURY ANEMIA PLAN IV STEROIDS INHALED BRONCHODILATORS O2 TO MAINTAIN O2 SAT 90% OR GREATED ABX PER ID CHEST CT CHEST PT DR SEO Problem List - Problems (1) Acute hypoxemic respiratory failure Code(s): J96.01 - ACUTE RESPIRATORY FAILURE WITH HYPOXIA (2) COPD with acute bronchitis Code(s): J44.0 - CHRONIC OBSTRUCTIVE PULMON DISEASE W ACUTE LOWER RESP INFCT (3) Pneumonia Code(s): J18.9 - PNEUMONIA, UNSPECIFIED ORGANISM Qualifiers: Pneumonia type: due to unspecified organism Laterality: unspecified laterality Lung location: unspecified part of lung Qualified Code(s): J18.9 - Pneumonia, unspecified organism (4) Anxiety disorder Code(s): F41.9 - ANXIETY DISORDER, UNSPECIFIED (5) Bronchiectasis with (acute) exacerbation Code(s): J47.1 - BRONCHIECTASIS WITH (ACUTE) EXACERBATION (6) Diastolic CHF Code(s): I50.30 - UNSPECIFIED DIASTOLIC (CONGESTIVE) HEART FAILURE (7) Head injury Code(s): S09.90XA - UNSPECIFIED INJURY OF HEAD, INITIAL ENCOUNTER Qualifiers: Encounter type: initial encounter Qualified Code(s): S09.90XA - Unspecified injury of head, initial encounter (8) SOB (shortness of breath) Code(s): R06.02 - SHORTNESS OF BREATH (9) Bronchiectasis Code(s): J47.9 - BRONCHIECTASIS, UNCOMPLICATED (10) Hyperlipidemia Code(s): E78.5 - HYPERLIPIDEMIA, UNSPECIFIED (11) Adult ADHD (attention deficit hyperactivity disorder) Code(s): F90.0 - ATTN-DEFCT HYPERACTIVITY DISORDER, PREDOM INATTENTIVE TYPE
[2019-01-21] MEDS: INSULIN SLIDING SCALE (NOVOLOG) 1 VIAL SQ SCH ×2 (17:19→21:29)
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
[2019-01-21] MEDS: ACETAMINOPHEN 325 MG TABLET (FP) PO PRN (21:09)
[2019-01-21] MEDS: ATORVASTATIN CA 20 MG TABLET (FP) PO SCH (21:11)
[2019-01-21] MEDS ORDERED: PT OWN MED DRAWER 7, Y5N ONE (21:12)
[2019-01-21] MEDS: DOXEPIN HCL 25 MG CAPSULE PO SCH (21:13)
[2019-01-21] MEDS: BUDESONIDE/FORMETEROL FUMARATE 160/4.5 mcg INHALER IH SCH (21:23)
[2019-01-22] MEDS: methylPREDNISolone NA SUCC 125 MG/2 ML VIAL IVPUSH SCH ×2 (03:03→09:14)
[2019-01-22] MEDS ORDERED: PT OWN MED DRAWER 7, Y5N ONE ×3 (05:27→20:11)
[2019-01-22] MEDS: LORazepam 1 MG TABLET PO SCH ×3 (05:32→23:43)
[2019-01-22] MEDS: traMADol HCL 50 MG TABLET PO PRN ×2 (06:11→23:43)
[2019-01-22] MEDS: INSULIN SLIDING SCALE (NOVOLOG) 1 VIAL SQ SCH ×4 (07:08→22:32)
[2019-01-22] MEDS ORDERED: INSULIN (NOVOLOG) ASPART 100 UNITS/ML 10ML VIAL ONE (07:11)
[2019-01-22] MEDS ORDERED: INSULIN (LEVEMIR) 100 UNITS/ML UNITS SQ ONE (07:11)
[2019-01-22 07:33] LABS: HEMATOCRIT 29.3 % (35.4-49); HEMOGLOBIN 9.1 GM/dL (11.7-16.9); LYMPH % 7.1 % (8-40); MCH 22.3 pg (25.7-33.7); MCHC 31.2 g/dl (32.0-35.9); MEAN CELL VOLUME 71.5 fl (80-96); MEAN PLT VOLUME 8.6 fl (7.5-11.1); MONO % 1.6 % (3.8-10.2); NEUT % 91.3 % (42.8-82.8); PLATELET COUNT 299 K/MM3 (134-434); RDW 16.1 % (11.9-15.9); WHITE BLOOD COUNT 17.8 K/mm3 (4.0-10.0)
[2019-01-22 07:42] LABS: ALBUMIN 2.8 g/dl (3.4-5.0); BILIRUBIN,TOTAL 0.4 mg/dL (0.2-1); CALCIUM 8.3 mg/dL (8.5-10.1); CREATININE 0.9 mg/dL (0.55-1.3); MAGNESIUM 2.4 mg/dL (1.8-2.4); PHOSPHOROUS 4.2 mg/dL (2.5-4.9); TOT PROT 6.4 g/dl (6.4-8.2)
[2019-01-22] MEDS: ALBUTEROL SO4 2.5/IPRATROPIUM 0.5 INH SOL 3 ML VIAL.NEB. NEB SCH ×4 (08:00→20:10)
[2019-01-22] MEDS ORDERED: cefTRIAXone SODIUM 1 GM VIAL ONE (08:52)
[2019-01-22] MEDS ORDERED: DEXTROSE 5%-WATER - 50 ML IVPB ONE (08:52)
[2019-01-22] MEDS: CEFTRIAXONE 1 GM in DEXTROSE 5%-WATER - 50 ML IVPB SCH (09:13)
[2019-01-22] MEDS: cloNIDine HCL 0.1 MG TABLET PO SCH ×2 (09:14→23:01)
[2019-01-22] MEDS: amLODIPine BESYLATE 10 MG TABLET (FP) PO SCH (09:14)
[2019-01-22] MEDS: ENOXAPARIN NA (PORCINE) 40 MG/0.4 ML DISP.SYRIN SQ SCH (09:14)
[2019-01-22] MEDS: DOXEPIN HCL 25 MG CAPSULE PO SCH ×2 (09:15→22:32)
[2019-01-22] MEDS: PANTOPRAZOLE 40 MG TABLET (FP) PO SCH (09:15)
--- NOTE | 2019-01-22 10:26 | PN ---
Progress Note (short form) - Note Progress Note: More alert still coughing Vital Signs Period Temp Pulse Resp BP Sys/Walter Pulse Ox Last 24 Hr 97.5 F-98.1 F 56-76 20-20 104-113/59-63 95 cor-rrr lungs -bilateral rhonchi abd soft, nt ext no edema CBC, BMP 01/22/19 05:46 01/22/19 05:46 Microbiology 01/20/19 16:49 Blood - Peripheral Venous Blood Culture - Preliminary NO GROWTH OBTAINED AFTER 24 HOURS, INCUBATION TO CONTINUE FOR 4 DAYS. 01/20/19 16:49 Blood - Peripheral Venous Blood Culture - Preliminary NO GROWTH OBTAINED AFTER 24 HOURS, INCUBATION TO CONTINUE FOR 4 DAYS. 01/20/19 19:11 Sputum - Expectorated Gram Stain - Final 01/20/19 19:35 Urine For Antigen Detection Legionella Antigen - Final 01/20/19 19:35 Urine For Antigen Detection Streptococcus pneumoniae Antigen (M - Final a/p pneumonia bronchiectasis continue rocephin/zith f/u cultures f/u chest ct Problem List - Problems (1) COPD with acute bronchitis Code(s): J44.0 - CHRONIC OBSTRUCTIVE PULMON DISEASE W ACUTE LOWER RESP INFCT (2) Pneumonia Code(s): J18.9 - PNEUMONIA, UNSPECIFIED ORGANISM Qualifiers: Pneumonia type: due to unspecified organism Laterality: unspecified laterality Lung location: unspecified part of lung Qualified Code(s): J18.9 - Pneumonia, unspecified organism (3) Bronchiectasis Code(s): J47.9 - BRONCHIECTASIS, UNCOMPLICATED
[2019-01-22] MEDS: AZITHROMYCIN IVPB 250 MG in DEXTROSE 5%-WATER - 250 ML IVPB SCH (11:09)
[2019-01-22 11:25] LABS: ANISOCYTOSIS 1+; MACROCYTOSIS 0; PLATELET ESTIMATE NORMAL
--- NOTE | 2019-01-22 12:05 | PN ---
Progress Note, Physician History of Present Illness: pulmonary alert,feeling better,less congested ,less cough - Current Medication List Current Medications: Active Medications Acetaminophen (Tylenol -) 650 mg PO Q6H PRN PRN Reason: PAIN LEVEL 1-5 Last Admin: 01/21/19 21:09 Dose: 650 mg Albuterol Sulfate (Ventolin 0.083% Nebulizer Soln -) 1 amp NEB Q4H PRN PRN Reason: SHORT OF BREATH/WHEEZING Albuterol/Ipratropium (Duoneb -) 1 amp NEB RQID [facility] Last Admin: 01/22/19 08:00 Dose: 1 amp Amlodipine Besylate (Norvasc -) 10 mg PO DAILY [facility] Last Admin: 01/22/19 09:14 Dose: 10 mg Atorvastatin Calcium (Lipitor -) 20 mg PO HS [facility] Last Admin: 01/21/19 21:11 Dose: 20 mg Budesonide/Formoterol Fumarate (Symbicort 160/4.5mcg -) 2 puff IH BID [facility] Last Admin: 01/21/19 21:23 Dose: 2 puff Clonidine (Catapres -) 0.3 mg PO BID [facility] Last Admin: 01/22/19 09:14 Dose: 0.3 mg Doxepin HCl (Sinequan -) 75 mg PO BID [facility] Last Admin: 01/22/19 09:15 Dose: 75 mg Enoxaparin Sodium (Lovenox -) 40 mg SQ DAILY [facility] Last Admin: 01/22/19 09:14 Dose: 40 mg Azithromycin 250 mg/ Dextrose 250 mls @ 250 mls/hr IVPB DAILY [facility] Last Admin: 01/22/19 11:09 Dose: 250 mls/hr Ceftriaxone Sodium 1 gm/ (Dextrose) 50 mls @ 100 mls/hr IVPB DAILY [facility] Last Admin: 01/22/19 09:13 Dose: 100 mls/hr Insulin Aspart (Novolog Vial Sliding Scale -) 1 vial SQ ACHS [facility]; Protocol Last Admin: 01/22/19 07:08 Dose: Not Given Lorazepam (Ativan -) 4 mg PO TID [facility] Last Admin: 01/22/19 05:32 Dose: 4 mg Methylprednisolone Sodium Succinate (Solu-Medrol -) 60 mg IVPUSH Q6H-IV [facility] Last Admin: 01/22/19 09:14 Dose: 60 mg Pantoprazole Sodium (Protonix -) 40 mg PO DAILY [facility] Last Admin: 01/22/19 09:15 Dose: 40 mg Tramadol HCl (Ultram -) 50 mg PO Q8H PRN PRN Reason: PAIN LEVEL 7 - 10 Last Admin: 01/22/19 06:11 Dose: 50 mg - Objective Vital Signs: Vital Signs Temperature 97.6 F 01/22/19 06:00 Pulse Rate 56 L 01/22/19 06:00 Respiratory Rate 20 01/22/19 06:00 Blood Pressure 104/63 01/22/19 06:00 O2 Sat by Pulse Oximetry (%) 95 01/21/19 21:00 Constitutional: Yes: Well Nourished, Calm Eyes: Yes: WNL HENT: Yes: WNL Neck: Yes: WNL Cardiovascular: Yes: Regular Rate and Rhythm, S1, S2 Respiratory: Yes: Rhonchi (less rhonchi andwhhezes bilaterally) Gastrointestinal: Yes: Normal Bowel Sounds, Soft Extremities: Yes: WNL Edema: No Labs: CBC, BMP 01/22/19 05:46 01/22/19 05:46 INR, PTT INR 1.14 (0.83-1.09) H 01/21/19 06:36 - ....Imaging Cat Scan: Image Reviewed (? NEW SMALL RUL INFILTRATE) Problem List - Problems (1) Acute hypoxemic respiratory failure Code(s): J96.01 - ACUTE RESPIRATORY FAILURE WITH HYPOXIA (2) COPD with acute bronchitis Code(s): J44.0 - CHRONIC OBSTRUCTIVE PULMON DISEASE W ACUTE LOWER RESP INFCT (3) Pneumonia Code(s): J18.9 - PNEUMONIA, UNSPECIFIED ORGANISM Qualifiers: Pneumonia type: due to unspecified organism Laterality: unspecified laterality Lung location: unspecified part of lung Qualified Code(s): J18.9 - Pneumonia, unspecified organism (4) Anxiety disorder Code(s): F41.9 - ANXIETY DISORDER, UNSPECIFIED (5) Bronchiectasis with (acute) exacerbation Code(s): J47.1 - BRONCHIECTASIS WITH (ACUTE) EXACERBATION (6) Diastolic CHF Code(s): I50.30 - UNSPECIFIED DIASTOLIC (CONGESTIVE) HEART FAILURE (7) Head injury Code(s): S09.90XA - UNSPECIFIED INJURY OF HEAD, INITIAL ENCOUNTER Qualifiers: Encounter type: initial encounter Qualified Code(s): S09.90XA - Unspecified injury of head, initial encounter (8) SOB (shortness of breath) Code(s): R06.02 - SHORTNESS OF BREATH (9) Bronchiectasis Code(s): J47.9 - BRONCHIECTASIS, UNCOMPLICATED (10) Hyperlipidemia Code(s): E78.5 - HYPERLIPIDEMIA, UNSPECIFIED (11) Adult ADHD (attention deficit hyperactivity disorder) Code(s): F90.0 - ATTN-DEFCT HYPERACTIVITY DISORDER, PREDOM INATTENTIVE TYPE Assessment/Plan IMP ACUTE HYPOXEMIC RESPIRATORY FAILURE improvving PNEUMONIA COPD BRONCHIECTASIS H/O TRAUMATIC BRAIN INJURY ANEMIA PLAN IV STEROIDS SAME DOSE INHALED BRONCHODILATORS O2 TO MAINTAIN O2 SAT 90% OR GREATED ABX PER ID CHEST PT DR SEO Problem List - Problems (1) Acute hypoxemic respiratory failure Code(s): J96.01 - ACUTE RESPIRATORY FAILURE WITH HYPOXIA (2) COPD with acute bronchitis Code(s): J44.0 - CHRONIC OBSTRUCTIVE PULMON DISEASE W ACUTE LOWER RESP INFCT (3) Pneumonia Code(s): J18.9 - PNEUMONIA, UNSPECIFIED ORGANISM Qualifiers: Pneumonia type: due to unspecified organism Laterality: unspecified laterality Lung location: unspecified part of lung Qualified Code(s): J18.9 - Pneumonia, unspecified organism (4) Anxiety disorder Code(s): F41.9 - ANXIETY DISORDER, UNSPECIFIED (5) Bronchiectasis with (acute) exacerbation Code(s): J47.1 - BRONCHIECTASIS WITH (ACUTE) EXACERBATION (6) Diastolic CHF Code(s): I50.30 - UNSPECIFIED DIASTOLIC (CONGESTIVE) HEART FAILURE (7) Head injury Code(s): S09.90XA - UNSPECIFIED INJURY OF HEAD, INITIAL ENCOUNTER Qualifiers: Encounter type: initial encounter Qualified Code(s): S09.90XA - Unspecified injury of head, initial encounter (8) SOB (shortness of breath) Code(s): R06.02 - SHORTNESS OF BREATH (9) Bronchiectasis Code(s): J47.9 - BRONCHIECTASIS, UNCOMPLICATED (10) Hyperlipidemia Code(s): E78.5 - HYPERLIPIDEMIA, UNSPECIFIED (11) Adult ADHD (attention deficit hyperactivity disorder) Code(s): F90.0 - ATTN-DEFCT HYPERACTIVITY DISORDER, PREDOM INATTENTIVE TYPE
[2019-01-22] MEDS: BUDESONIDE/FORMETEROL FUMARATE 160/4.5 mcg INHALER IH SCH ×2 (12:14→22:33)
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
[2019-01-22] MEDS: methylPREDNISolone NA SUCC 40 MG/1 ML VIAL IVPUSH SCH ×2 (17:55→22:32)
[2019-01-22] MEDS: ACETAMINOPHEN 325 MG TABLET (FP) PO PRN (21:05)
[2019-01-22] MEDS: ATORVASTATIN CA 20 MG TABLET (FP) PO SCH (23:01)
[2019-01-22] MEDS ORDERED: guaiFENesin/D-METHORPHAN HB 10 ML UNIT-DOSE CUPS PO ONE (23:20)
[2019-01-22] MEDS ORDERED: guaiFENesin/D-METHORPHAN TAB.ER.12H PO ONE (23:21)
[2019-01-23] MEDS: ALBUTEROL SO4 0.083% IH SOL 2.5 MG/3 ML VIAL.NEB. NEB PRN ×2 (00:15→06:00)
[2019-01-23] MEDS: methylPREDNISolone NA SUCC 40 MG/1 ML VIAL IVPUSH SCH ×3 (04:07→22:04)
[2019-01-23] MEDS: LORazepam 1 MG TABLET PO SCH ×3 (05:46→22:03)
[2019-01-23] MEDS ORDERED: guaiFENesin 200 MG/10 ML 10 ML UNIT-DOSE CUPS PO ONE (06:30)
[2019-01-23] MEDS: INSULIN SLIDING SCALE (NOVOLOG) 1 VIAL SQ SCH ×4 (06:55→22:05)
[2019-01-23 07:41] LABS: HEMATOCRIT 31.8 % (35.4-49); HEMOGLOBIN 9.9 GM/dL (11.7-16.9); LYMPH % 4.8 % (8-40); MCH 22.2 pg (25.7-33.7); MEAN CELL VOLUME 71.5 fl (80-96); MEAN PLT VOLUME 8.6 fl (7.5-11.1); MONO % 2.2 % (3.8-10.2); RBC 4.45 M/mm3 (4.00-5.60); RDW 16.1 % (11.9-15.9); WHITE BLOOD COUNT 19.7 K/mm3 (4.0-10.0)
[2019-01-23] MEDS: ALBUTEROL SO4 2.5/IPRATROPIUM 0.5 INH SOL 3 ML VIAL.NEB. NEB SCH ×4 (07:43→19:50)
[2019-01-23 08:50] LABS: PLATELET COUNT 363 K/MM3 (134-434)
[2019-01-23] MEDS ORDERED: DEXTROSE 5%-WATER - 50 ML IVPB ONE (09:01)
[2019-01-23] MEDS ORDERED: cefTRIAXone SODIUM 1 GM VIAL ONE (09:01)
[2019-01-23] MEDS: traMADol HCL 50 MG TABLET PO PRN ×2 (10:06→22:04)
[2019-01-23] MEDS: PANTOPRAZOLE 40 MG TABLET (FP) PO SCH (10:07)
[2019-01-23] MEDS: cloNIDine HCL 0.1 MG TABLET PO SCH ×2 (10:07→22:04)
[2019-01-23] MEDS: amLODIPine BESYLATE 10 MG TABLET (FP) PO SCH (10:07)
[2019-01-23] MEDS: CEFTRIAXONE 1 GM in DEXTROSE 5%-WATER - 50 ML IVPB SCH (10:07)
[2019-01-23] MEDS: ENOXAPARIN NA (PORCINE) 40 MG/0.4 ML DISP.SYRIN SQ SCH (10:08)
[2019-01-23] MEDS: BUDESONIDE/FORMETEROL FUMARATE 160/4.5 mcg INHALER IH SCH ×2 (10:12→22:05)
[2019-01-23 11:27] LABS: ANISOCYTOSIS 1+; MACROCYTOSIS 0; PLATELET ESTIMATE NORMAL
--- NOTE | 2019-01-23 11:40 | PN ---
Progress Note, Physician History of Present Illness: pulmonary alert,feeling better,less congested ,less dyspneic. O2 sat 91% on ra - Current Medication List Current Medications: Active Medications Acetaminophen (Tylenol -) 650 mg PO Q6H PRN PRN Reason: PAIN LEVEL 1-5 Last Admin: 01/22/19 21:05 Dose: 650 mg Albuterol Sulfate (Ventolin 0.083% Nebulizer Soln -) 1 amp NEB Q4H PRN PRN Reason: SHORT OF BREATH/WHEEZING Last Admin: 01/23/19 06:00 Dose: 1 amp Albuterol/Ipratropium (Duoneb -) 1 amp NEB RQID [facility] Last Admin: 01/23/19 11:10 Dose: 1 amp Amlodipine Besylate (Norvasc -) 10 mg PO DAILY [facility] Last Admin: 01/23/19 10:07 Dose: 10 mg Atorvastatin Calcium (Lipitor -) 20 mg PO HS [facility] Last Admin: 01/22/19 23:01 Dose: 20 mg Budesonide/Formoterol Fumarate (Symbicort 160/4.5mcg -) 2 puff IH BID [facility] Last Admin: 01/23/19 10:12 Dose: 2 puff Clonidine (Catapres -) 0.3 mg PO BID [facility] Last Admin: 01/23/19 10:07 Dose: 0.3 mg Doxepin HCl (Sinequan -) 75 mg PO BID [facility] Last Admin: 01/22/19 22:32 Dose: 75 mg Enoxaparin Sodium (Lovenox -) 40 mg SQ DAILY [facility] Last Admin: 01/23/19 10:08 Dose: 40 mg Azithromycin 250 mg/ Dextrose 250 mls @ 250 mls/hr IVPB DAILY [facility] Last Admin: 01/22/19 11:09 Dose: 250 mls/hr Ceftriaxone Sodium 1 gm/ (Dextrose) 50 mls @ 100 mls/hr IVPB DAILY [facility] Last Admin: 01/23/19 10:07 Dose: 100 mls/hr Insulin Aspart (Novolog Vial Sliding Scale -) 1 vial SQ ACHS [facility]; Protocol Last Admin: 01/23/19 06:55 Dose: Not Given Lorazepam (Ativan -) 4 mg PO TID [facility] Last Admin: 01/23/19 05:46 Dose: 4 mg Methylprednisolone Sodium Succinate (Solu-Medrol -) 40 mg IVPUSH Q12H [facility] Pantoprazole Sodium (Protonix -) 40 mg PO DAILY [facility] Last Admin: 01/23/19 10:07 Dose: 40 mg Tramadol HCl (Ultram -) 50 mg PO Q8H PRN PRN Reason: PAIN LEVEL 7 - 10 Last Admin: 01/23/19 10:06 Dose: 50 mg - Objective Vital Signs: Vital Signs Temperature 98.1 F 01/23/19 06:41 Pulse Rate 84 01/23/19 06:41 Respiratory Rate 20 01/23/19 06:41 Blood Pressure 141/83 01/23/19 06:41 O2 Sat by Pulse Oximetry (%) 96 01/22/19 21:00 Constitutional: Yes: Well Nourished, Calm Eyes: Yes: WNL HENT: Yes: WNL Neck: Yes: WNL Cardiovascular: Yes: Regular Rate and Rhythm, S1, S2 Respiratory: Yes: Rhonchi, Wheezes (less wheezes and rhonchi bilateally) Gastrointestinal: Yes: Normal Bowel Sounds, Soft Extremities: Yes: WNL Edema: No Labs: CBC, BMP 01/23/19 05:43 INR, PTT INR 1.14 (0.83-1.09) H 01/21/19 06:36 Problem List - Problems (1) Acute hypoxemic respiratory failure Code(s): J96.01 - ACUTE RESPIRATORY FAILURE WITH HYPOXIA (2) COPD with acute bronchitis Code(s): J44.0 - CHRONIC OBSTRUCTIVE PULMON DISEASE W ACUTE LOWER RESP INFCT (3) Pneumonia Code(s): J18.9 - PNEUMONIA, UNSPECIFIED ORGANISM Qualifiers: Pneumonia type: due to unspecified organism Laterality: unspecified laterality Lung location: unspecified part of lung Qualified Code(s): J18.9 - Pneumonia, unspecified organism (4) Anxiety disorder Code(s): F41.9 - ANXIETY DISORDER, UNSPECIFIED (5) Bronchiectasis with (acute) exacerbation Code(s): J47.1 - BRONCHIECTASIS WITH (ACUTE) EXACERBATION (6) Diastolic CHF Code(s): I50.30 - UNSPECIFIED DIASTOLIC (CONGESTIVE) HEART FAILURE (7) Head injury Code(s): S09.90XA - UNSPECIFIED INJURY OF HEAD, INITIAL ENCOUNTER Qualifiers: Encounter type: initial encounter Qualified Code(s): S09.90XA - Unspecified injury of head, initial encounter (8) SOB (shortness of breath) Code(s): R06.02 - SHORTNESS OF BREATH (9) Bronchiectasis Code(s): J47.9 - BRONCHIECTASIS, UNCOMPLICATED (10) Hyperlipidemia Code(s): E78.5 - HYPERLIPIDEMIA, UNSPECIFIED (11) Adult ADHD (attention deficit hyperactivity disorder) Code(s): F90.0 - ATTN-DEFCT HYPERACTIVITY DISORDER, PREDOM INATTENTIVE TYPE Assessment/Plan IMP ACUTE HYPOXEMIC RESPIRATORY FAILURE improvving PNEUMONIA COPD BRONCHIECTASIS H/O TRAUMATIC BRAIN INJURY ANEMIA PLAN IV STEROIDS INHALED BRONCHODILATORS O2 TO MAINTAIN O2 SAT 90% OR GREATED ABX PER ID CHEST PT DR SEO Problem List - Problems (1) Acute hypoxemic respiratory failure Code(s): J96.01 - ACUTE RESPIRATORY FAILURE WITH HYPOXIA (2) COPD with acute bronchitis Code(s): J44.0 - CHRONIC OBSTRUCTIVE PULMON DISEASE W ACUTE LOWER RESP INFCT (3) Pneumonia Code(s): J18.9 - PNEUMONIA, UNSPECIFIED ORGANISM Qualifiers: Pneumonia type: due to unspecified organism Laterality: unspecified laterality Lung location: unspecified part of lung Qualified Code(s): J18.9 - Pneumonia, unspecified organism (4) Anxiety disorder Code(s): F41.9 - ANXIETY DISORDER, UNSPECIFIED (5) Bronchiectasis with (acute) exacerbation Code(s): J47.1 - BRONCHIECTASIS WITH (ACUTE) EXACERBATION (6) Diastolic CHF Code(s): I50.30 - UNSPECIFIED DIASTOLIC (CONGESTIVE) HEART FAILURE (7) Head injury Code(s): S09.90XA - UNSPECIFIED INJURY OF HEAD, INITIAL ENCOUNTER Qualifiers: Encounter type: initial encounter Qualified Code(s): S09.90XA - Unspecified injury of head, initial encounter (8) SOB (shortness of breath) Code(s): R06.02 - SHORTNESS OF BREATH (9) Bronchiectasis Code(s): J47.9 - BRONCHIECTASIS, UNCOMPLICATED (10) Hyperlipidemia Code(s): E78.5 - HYPERLIPIDEMIA, UNSPECIFIED (11) Adult ADHD (attention deficit hyperactivity disorder) Code(s): F90.0 - ATTN-DEFCT HYPERACTIVITY DISORDER, PREDOM INATTENTIVE TYPE
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
[2019-01-23] MEDS: DOXEPIN HCL 25 MG CAPSULE PO SCH ×2 (12:34→22:03)
[2019-01-23] MEDS: AZITHROMYCIN IVPB 250 MG in DEXTROSE 5%-WATER - 250 ML IVPB SCH (12:34)
[2019-01-23 12:46] LABS: HEMATOCRIT 35.3 % (35.4-49); HEMOGLOBIN 10.8 GM/dL (11.7-16.9); LYMPH % 4.8 % (8-40); MCH 22.2 pg (25.7-33.7); MCHC 30.7 g/dl (32.0-35.9); MEAN CELL VOLUME 72.2 fl (80-96); MEAN PLT VOLUME 8.3 fl (7.5-11.1); MONO % 2.4 % (3.8-10.2); NEUT % 92.8 % (42.8-82.8); RBC 4.89 M/mm3 (4.00-5.60); RDW 16.4 % (11.9-15.9)
[2019-01-23 12:57] LABS: BLOOD UREA NITROGEN 20.1 mg/dL (7-18); CALCIUM 8.8 mg/dL (8.5-10.1); POTASSIUM 4.1 mmol/L (3.5-5.1)
[2019-01-23 13:03] LABS: PLATELET COUNT 408 K/MM3 (134-434)
[2019-01-23 14:29] LABS: ANISOCYTOSIS 1+; MACROCYTOSIS 0; PLATELET ESTIMATE NORMAL
[2019-01-23] MEDS ORDERED: ARTIFICIAL TEARS (POLYVINYL ALCOHOL) OPTH DROPS OU PRN (14:43)
[2019-01-23] MEDS: ATORVASTATIN CA 20 MG TABLET (FP) PO SCH (22:02)
[2019-01-23] MEDS ORDERED: HALOPERIDOL LACTATE 5 MG/ML IM ONE (22:24)
[2019-01-24] MEDS: LORazepam 1 MG TABLET PO SCH (05:49)
[2019-01-24] MEDS: INSULIN SLIDING SCALE (NOVOLOG) 1 VIAL SQ SCH ×2 (06:02→12:09)
[2019-01-24] MEDS: ALBUTEROL SO4 2.5/IPRATROPIUM 0.5 INH SOL 3 ML VIAL.NEB. NEB SCH ×2 (07:31→11:07)
[2019-01-24 07:56] LABS: BASO % 0.1 % (0-2.0); HEMATOCRIT 31.8 % (35.4-49); HEMOGLOBIN 9.9 GM/dL (11.7-16.9); LYMPH % 8.4 % (8-40); MCH 22.2 pg (25.7-33.7); MEAN CELL VOLUME 71.8 fl (80-96); MEAN PLT VOLUME 8.4 fl (7.5-11.1); NEUT % 88.5 % (42.8-82.8); PLATELET COUNT 370 K/MM3 (134-434); RBC 4.43 M/mm3 (4.00-5.60); RDW 16.1 % (11.9-15.9); WHITE BLOOD COUNT 17.6 K/mm3 (4.0-10.0)
[2019-01-24 08:12] LABS: BLOOD UREA NITROGEN 22.2 mg/dL (7-18); CALCIUM 8.3 mg/dL (8.5-10.1); CREATININE 0.8 mg/dL (0.55-1.3); MAGNESIUM 2.6 mg/dL (1.8-2.4); PHOSPHOROUS 4.5 mg/dL (2.5-4.9); POTASSIUM 4.2 mmol/L (3.5-5.1)
[2019-01-24] MEDS ORDERED: PT OWN MED DRAWER 7, Y5N ONE (09:11)
[2019-01-24] MEDS ORDERED: cefTRIAXone SODIUM 1 GM VIAL ONE (09:11)
[2019-01-24] MEDS ORDERED: DEXTROSE 5%-WATER - 50 ML IVPB ONE (09:11)
[2019-01-24 09:18] VITALS: BP 118/85; TEMP 98.2
[2019-01-24] MEDS: methylPREDNISolone NA SUCC 40 MG/1 ML VIAL IVPUSH SCH (09:23)
[2019-01-24] MEDS: CEFTRIAXONE 1 GM in DEXTROSE 5%-WATER - 50 ML IVPB SCH (09:23)
[2019-01-24] MEDS: PANTOPRAZOLE 40 MG TABLET (FP) PO SCH ×2 (09:24→09:39)
[2019-01-24] MEDS: AZITHROMYCIN IVPB 250 MG in DEXTROSE 5%-WATER - 250 ML IVPB SCH (09:24)
[2019-01-24] MEDS: cloNIDine HCL 0.1 MG TABLET PO SCH (09:24)
[2019-01-24] MEDS: amLODIPine BESYLATE 10 MG TABLET (FP) PO SCH (09:25)
[2019-01-24] MEDS: ENOXAPARIN NA (PORCINE) 40 MG/0.4 ML DISP.SYRIN SQ SCH ×2 (09:25→09:38)
[2019-01-24] MEDS: BUDESONIDE/FORMETEROL FUMARATE 160/4.5 mcg INHALER IH SCH (09:26)
[2019-01-24] MEDS: DOXEPIN HCL 25 MG CAPSULE PO SCH (09:26)
[2019-01-24 10:20] VITALS: PULSE 88
--- NOTE | 2019-01-24 10:26 | PN ---
Progress Note (short form) - Note Progress Note: PULMONARY States breathing better today. No cough or wheezing. No fevers or chills. Vital Signs Period Temp Pulse Resp BP Sys/Walter Pulse Ox Last 24 Hr 97.6 F-98.2 F 69-88 18-20 118-138/66-85 93-98 Gen: NAD at rest Heart: RRR Lung: scattered rhonchi Abd: soft, nontender Ext: no edema CBC, BMP 01/24/19 07:00 01/24/19 07:00 Active Medications Acetaminophen (Tylenol -) 650 mg PO Q6H PRN PRN Reason: PAIN LEVEL 1-5 Last Admin: 01/22/19 21:05 Dose: 650 mg Albuterol Sulfate (Ventolin 0.083% Nebulizer Soln -) 1 amp NEB Q4H PRN PRN Reason: SHORT OF BREATH/WHEEZING Last Admin: 01/23/19 06:00 Dose: 1 amp Albuterol/Ipratropium (Duoneb -) 1 amp NEB RQID [facility] Last Admin: 01/24/19 07:31 Dose: 1 amp Amlodipine Besylate (Norvasc -) 10 mg PO DAILY [facility] Last Admin: 01/24/19 09:25 Dose: 10 mg Artificial Tears (Artificial Tears) 1 drop OU QID PRN PRN Reason: DRY EYES Last Admin: 01/23/19 18:14 Dose: 1 drop Atorvastatin Calcium (Lipitor -) 20 mg PO HS [facility] Last Admin: 01/23/19 22:02 Dose: 20 mg Budesonide/Formoterol Fumarate (Symbicort 160/4.5mcg -) 2 puff IH BID [facility] Last Admin: 01/24/19 09:26 Dose: 2 puff Clonidine (Catapres -) 0.3 mg PO BID [facility] Last Admin: 01/24/19 09:24 Dose: 0.3 mg Doxepin HCl (Sinequan -) 75 mg PO BID [facility] Last Admin: 01/24/19 09:26 Dose: Not Given Enoxaparin Sodium (Lovenox -) 40 mg SQ DAILY [facility] Last Admin: 01/24/19 09:38 Dose: Not Given Azithromycin 250 mg/ Dextrose 250 mls @ 250 mls/hr IVPB DAILY [facility] Last Admin: 01/24/19 09:24 Dose: 250 mls/hr Ceftriaxone Sodium 1 gm/ (Dextrose) 50 mls @ 100 mls/hr IVPB DAILY [facility] Last Admin: 01/24/19 09:23 Dose: 100 mls/hr Insulin Aspart (Novolog Vial Sliding Scale -) 1 vial SQ ACHS [facility]; Protocol Last Admin: 01/24/19 06:02 Dose: Not Given Lorazepam (Ativan -) 4 mg PO TID [facility] Last Admin: 01/24/19 05:49 Dose: 4 mg Methylprednisolone Sodium Succinate (Solu-Medrol -) 40 mg IVPUSH Q12H [facility] Last Admin: 01/24/19 09:23 Dose: 40 mg Pantoprazole Sodium (Protonix -) 40 mg PO DAILY [facility] Last Admin: 01/24/19 09:39 Dose: Not Given Tramadol HCl (Ultram -) 50 mg PO Q8H PRN PRN Reason: PAIN LEVEL 7 - 10 Last Admin: 01/23/19 22:04 Dose: 50 mg A/P Acute Hypoxic Respiratory Failure improving Pneumonia Acute COPD Exacerbation Bronchiectasis Anemia - complete antibiotics - can change steroids to PO prednisone and taper as outpt - inhaled bronchodilators - outpt f/u of chest imaging - DVT prophylaxis - can be discharged from pulmonary standpoint
--- NOTE | 2019-01-24 10:45 | PN ---
Progress Note (short form) - Note Progress Note: f/u if patient is clinically stable can reschedule prostate procedure under local as outpatient.
--- NOTE | 2019-01-24 11:28 | PN ---
Progress Note (short form) - Note Progress Note: More alert cough improved Vital Signs Period Temp Pulse Resp BP Sys/Walter Pulse Ox Last 24 Hr 97.6 F-98.2 F 69-88 18-20 118-138/66-85 93-98 cor-rrr lungs decreased bs at bases abd soft,nt ext no edema CBC, BMP 01/24/19 07:00 01/24/19 07:00 Microbiology 01/20/19 16:49 Blood - Peripheral Venous Blood Culture - Preliminary NO GROWTH OBTAINED AFTER 72 HOURS, INCUBATION TO CONTINUE FOR 2 DAYS. 01/20/19 16:49 Blood - Peripheral Venous Blood Culture - Preliminary NO GROWTH OBTAINED AFTER 72 HOURS, INCUBATION TO CONTINUE FOR 2 DAYS. 01/20/19 19:11 Sputum - Expectorated Gram Stain - Final 01/20/19 19:11 Sputum - Expectorated Sputum Culture - Final NORMAL RESPIRATORY COLLEEN 01/20/19 19:35 Urine For Antigen Detection Legionella Antigen - Final 01/20/19 19:35 Urine For Antigen Detection Streptococcus pneumoniae Antigen (M - Final Current Medications Acetaminophen (Tylenol -) 650 mg PO Q6H PRN PRN Reason: PAIN LEVEL 1-5 Last Admin: 01/22/19 21:05 Dose: 650 mg Albuterol Sulfate (Ventolin 0.083% Nebulizer Soln -) 1 amp NEB Q4H PRN PRN Reason: SHORT OF BREATH/WHEEZING Last Admin: 01/23/19 06:00 Dose: 1 amp Albuterol/Ipratropium (Duoneb -) 1 amp NEB RQID [facility] Last Admin: 01/24/19 11:07 Dose: 1 amp Amlodipine Besylate (Norvasc -) 10 mg PO DAILY [facility] Last Admin: 01/24/19 09:25 Dose: 10 mg Artificial Tears (Artificial Tears) 1 drop OU QID PRN PRN Reason: DRY EYES Last Admin: 01/23/19 18:14 Dose: 1 drop Atorvastatin Calcium (Lipitor -) 20 mg PO HS [facility] Last Admin: 01/23/19 22:02 Dose: 20 mg Budesonide/Formoterol Fumarate (Symbicort 160/4.5mcg -) 2 puff IH BID [facility] Last Admin: 01/24/19 09:26 Dose: 2 puff Clonidine (Catapres -) 0.3 mg PO BID [facility] Last Admin: 01/24/19 09:24 Dose: 0.3 mg Doxepin HCl (Sinequan -) 75 mg PO BID [facility] Last Admin: 01/24/19 09:26 Dose: Not Given Enoxaparin Sodium (Lovenox -) 40 mg SQ DAILY [facility] Last Admin: 01/24/19 09:38 Dose: Not Given Azithromycin 250 mg/ Dextrose 250 mls @ 250 mls/hr IVPB DAILY [facility] Last Admin: 01/24/19 09:24 Dose: 250 mls/hr Ceftriaxone Sodium 1 gm/ (Dextrose) 50 mls @ 100 mls/hr IVPB DAILY [facility] Last Admin: 01/24/19 09:23 Dose: 100 mls/hr Insulin Aspart (Novolog Vial Sliding Scale -) 1 vial SQ ACHS [facility]; Protocol Last Admin: 01/24/19 06:02 Dose: Not Given Lorazepam (Ativan -) 4 mg PO TID [facility] Last Admin: 01/24/19 05:49 Dose: 4 mg Pantoprazole Sodium (Protonix -) 40 mg PO DAILY [facility] Last Admin: 01/24/19 09:39 Dose: Not Given Prednisone (Deltasone -) 40 mg PO DAILY [facility] Tramadol HCl (Ultram -) 50 mg PO Q8H PRN PRN Reason: PAIN LEVEL 7 - 10 Last Admin: 01/23/19 22:04 Dose: 50 mg a/p pneumonia-day #5 rocephin/zithromax bronchiectasis suspect leukocytosis secondary to steroids feels improved no objection to switch to po augmentin for 5 days Problem List - Problems (1) COPD with acute bronchitis Code(s): J44.0 - CHRONIC OBSTRUCTIVE PULMON DISEASE W ACUTE LOWER RESP INFCT (2) Pneumonia Code(s): J18.9 - PNEUMONIA, UNSPECIFIED ORGANISM Qualifiers: Pneumonia type: due to unspecified organism Laterality: unspecified laterality Lung location: unspecified part of lung Qualified Code(s): J18.9 - Pneumonia, unspecified organism (3) Bronchiectasis Code(s): J47.9 - BRONCHIECTASIS, UNCOMPLICATED
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
[2019-01-25] MEDS ORDERED: predniSONE 20 MG TABLET (UD) PO SCH (10:00)
--- NOTE | 2019-01-25 14:57 | EKG ---
Test Reason : Blood Pressure : / mmHG Vent. Rate : 071 BPM Atrial Rate : 071 BPM P-R Int : 114 ms QRS Dur : 096 ms QT Int : 436 ms P-R-T Axes : -21 012 031 degrees QTc Int : 473 ms NORMAL SINUS RHYTHM NORMAL ECG WHEN COMPARED WITH ECG OF 20-JAN-2019 15:24, SINUS RHYTHM HAS REPLACED ECTOPIC ATRIAL RHYTHM Confirmed by MD KECIA, NIRMAL ([id number]) on 01/25/2019 2:57:13 PM Referred By: Confirmed By:NIRMAL MCDONNELL MD
== END 2019-01-24 13:46 | disposition home or self-care (01) | DRG 193 ==
LOC: JER 15:18 → JERBED 17:55 → J7W 20:00
PROVIDERS: ADMIT Hospitalist; ATTEND Hospitalist
DX: J18.1 Lobar pneumonia, unspecified organism (principal); J96.01 Acute respiratory failure with hypoxia; J44.0 Chronic obstructive pulmonary disease with (acute) lower respiratory infection; J44.1 Chronic obstructive pulmonary disease with (acute) exacerbation; G93.40 Encephalopathy, unspecified; J45.901 Unspecified asthma with (acute) exacerbation; N40.0 Benign prostatic hyperplasia without lower urinary tract symptoms; R33.9 Retention of urine, unspecified; D64.9 Anemia, unspecified; I48.0 Paroxysmal atrial fibrillation; E78.5 Hyperlipidemia, unspecified
CPT/HCPCS: 36415; 36600; 71045-TC-FY; 71250-TC; 80048; 80053; 82375; 82550; 82803; 82962; 83050; 83735; 83880; 84100; 84484; 85025; 85027; 85610; 85730; 87040; 87070; 87205; 87899; 93005; 93010; 94640; 94761; 97116-GP; 97161-GP; 99284-25; J0735; J7030

== ENCOUNTER 2019-02-05 05:03 | Emergency (ER) | payer OTHER ==
--- NOTE | 2019-02-05 05:58 | PDOC ---
History of Present Illness - General Chief Complaint: Urinary Problem Stated Complaint: URINARY PROBLEM History Source: Patient Exam Limitations: No Limitations - History of Present Illness Initial Comments: 02/05/19 05:56 This is a 68-year-old male who comes in complaining of unable to urinate. Patient had a catheter removed yesterday. Patient otherwise denies any fevers chills nausea vomiting or any other complaints. Allergies: as per nursing notes Past Medical History: none Social history: Lives with family. No smoking. No alcohol. No illicit drugs. Surgical history: None General: No fevers or chills, no weakness, no weight loss HEENT: No change in vision. No sore throat,. No ear pain CardioVascular: no chest discomfort. No shortness of breath Respiratory:No cough, or wheezing. Gastrointestinal: no nausea, vomiting, diarrhea or constipation, No rectal bleeding Genitourinary: No dysuria, hematuria, or frequency, unable to urinate Musculoskeletal: No joint or muscle pain or swelling Neurologic: No headache, vertigo, dizziness or loss of consciousness Psychiatric: nor depression Skin: No rashes or easy bruising Endocrine: no increased thirst or abnormal weight change Allergic: no skin or latex allergy All other systems reviewed and normal GENERAL: The patient is awake, alert, and fully oriented, in no acute distress. HEAD: Normal with no signs of trauma. EYES: Pupils equal, round and reactive to light, extraocular movements intact, sclera anicteric, conjunctiva clear. EXTREMITIES:atraumatic, Normal range of motion, no edema. NEUROLOGICAL: Normal speech, normal gait. PSYCH: Normal mood, normal affect. SKIN: Warm, Dry, normal turgor, no rashes or lesions noted. Assessment and plan: This is a 15-year-old male with a catheter that was placed with good blood sugar was unable to urinate. Patient discharged with catheter and this urologist patient already on Bactrim Past History - Past Medical History Allergies/Adverse Reactions: Allergies Allergy/AdvReac Type Severity Reaction Status Date / Time alprazolam [From Xanax] AdvReac Intermediate Verified 01/20/19 15:51 gatifloxacin [From Tequin] AdvReac Intermediate DIARRHEA Verified 01/20/19 15:51 lamotrigine [From Lamictal] AdvReac Intermediate Verified 01/20/19 15:51 quetiapine fumarate AdvReac Intermediate DIZZINESS, Verified 01/20/19 15:51 [From Seroquel] NIGHTMARES zolpidem tartrate AdvReac Mild DEPRESSION, Verified 01/20/19 15:51 [From Ambien] DISORIENTED nickel AdvReac Verified 01/20/19 15:51 trazodone AdvReac Verified 01/20/19 16:05 Home Medications: Ambulatory Orders Amlodipine Besylate [Norvasc -] 10 mg PO DAILY 12/24/11 Lorazepam [Ativan] 4 mg PO TID MDD 3 11/14/17 Budesonide/Formeterol Fumarate [SYMBICORT 80/4.5mcg -] 1 inh PO BID 01/21/19 Clonidine HCl 0.3 mg PO BID 01/21/19 Dextroamphetamine/Amphetamine [Adderall Xr 30 mg Capsule] 60 mg PO TID 01/21/19 Doxepin HCl 50 mg PO BID 01/21/19 Doxepin HCl [Sinequan -] 25 mg PO TID 01/21/19 Tramadol HCl 50 mg PO TID PRN 01/21/19 predniSONE [Deltasone -] See Taper PO ASDIR #20 tab 01/24/19 Sulfamethoxazole/Trimethoprim [Bactrim Ds -] 1 tab PO BID 02/05/19 Anemia: No Asthma: Yes Cancer: No Cardiac Disorders: Yes (AFIB) CVA: No COPD: No CHF: No Dementia: No Diabetes: No GI Disorders: Yes (GERD) Disorders: No HTN: Yes Hypercholesterolemia: Yes Liver Disease: No Psychiatric Problems: Yes (ADD) Seizures: No Thyroid Disease: No - Surgical History Abdominal Surgery: No Appendectomy: No Cardiac Surgery: No Cholecystectomy: No Lung Surgery: No Neurologic Surgery: No Orthopedic Surgery: Yes (LT SHOULDER SX) - Immunization History Immunization Up to Date: Yes - Suicide/Smoking/Psychosocial Hx Smoking Status: No Smoking History: Former smoker Have you smoked in the past 12 months: No Number of Cigarettes Smoked Daily: 0 'Breaking Loose' booklet given: 06/07/16 Hx Alcohol Use: No Drug/Substance Use Hx: No Substance Use Type: None Hx Substance Use Treatment: No *DC/Admit/Observation/Transfer Diagnosis at time of Disposition: Urinary retention - Discharge Dispostion Disposition: HOME Condition at time of disposition: Stable Decision to Admit order: No - Referrals Referrals: Deacon Lujan MD [Primary Care Provider] - - Patient Instructions Additional Instructions: Wear the leg bag had follow-up with your urologist. Continue to take the antibiotic Return to the emergency department immediately with ANY new, persistent or worsening symptoms. Continue any medications as previously prescribed by your physician. You should follow up with your primary doctor as soon as possible regarding today's emergency department visit. . Please make sure your doctor reviews the results of your emergency evaluation. Thank you for coming to the Emergency Department today for your care. It was a pleasure to see you today. Please note that your evaluation is INCOMPLETE until you follow-up with your doctor. - Post Discharge Activity
[2019-02-05 06:00] VITALS: BP 120/71; PULSE 86; TEMP 98.5; BMI 19.9
== END 2019-02-05 06:10 | disposition home or self-care (01) ==
LOC: FER 05:03
PROC: 0T9B70Z Drainage of Bladder with Drainage Device, Via Natural or Artificial Opening (ICD-10-PCS; principal; 2019-02-05)
DX: R33.9 Retention of urine, unspecified (principal); I48.91 Unspecified atrial fibrillation; K21.9 Gastro-esophageal reflux disease without esophagitis; I10 Essential (primary) hypertension; F98.8 Other specified behavioral and emotional disorders with onset usually occurring in childhood and adolescence; Z87.891 Personal history of nicotine dependence
CPT/HCPCS: 99282-25

== ENCOUNTER 2019-02-05 23:07 | Emergency (ER) | payer OTHER ==
[2019-02-05 23:24] VITALS: BP 129/76; PULSE 90; TEMP 99.3; BMI 25.8
--- NOTE | 2019-02-06 00:22 | PDOC ---
Documentation entered by Jamaica Priutt SCRIBE, acting as scribe for Estefania Dixon MD. Estefania Dixon MD: This documentation has been prepared by the Edmond dodge Mackenzie, SCRIBE, under my direction and personally reviewed by me in its entirety. I confirm that the documentation accurately reflects all work , treatment, procedures, and medical decision making performed by me. History of Present Illness - General Chief Complaint: Injury Stated Complaint: TRIP AND FALL Time Seen by Provider: 02/05/19 23:10 - History of Present Illness Initial Comments: This 68-year-old man with a history of HTN/A. fib/BPH/GERD/ADD is brought in by ambulance with a history of a fall while playing softball in a park just prior to presentation. The patient is accompanied by his . Patient states that he recalls slipping and falling into bushes as he was retrieving a ball. Either thorns or branches of the shrubbery cut his lips causing some bleeding which resolved prior to presentation. He denies LOC, head or neck trauma. He denies shortness of breath,chest pain,palpitations Recent history notable for urologic procedure performed approximately 36 hours prior to presentation. Neither patient nor his can recall what procedure was performed except that it was an outpatient procedure in Dr. Haro's office. Urinary catheter was removed prior to the patient's discharge. Patient subsequently return to the ER overnight for urinary retention and catheter was placed with resolution of symptoms. According to his , he was unable to sleep at all after the ER visit. During the day today, he slept according to his "about an hour". He has been able to eat and drink normally during the day. This evening, he decided to go to a local park to play softball Past History - Past Medical History Allergies/Adverse Reactions: Allergies Allergy/AdvReac Type Severity Reaction Status Date / Time alprazolam [From Xanax] AdvReac Intermediate Verified 01/20/19 15:51 gatifloxacin [From Tequin] AdvReac Intermediate DIARRHEA Verified 01/20/19 15:51 lamotrigine [From Lamictal] AdvReac Intermediate Verified 01/20/19 15:51 quetiapine fumarate AdvReac Intermediate DIZZINESS, Verified 01/20/19 15:51 [From Seroquel] NIGHTMARES zolpidem tartrate AdvReac Mild DEPRESSION, Verified 01/20/19 15:51 [From Ambien] DISORIENTED nickel AdvReac Verified 01/20/19 15:51 trazodone AdvReac Verified 01/20/19 16:05 Home Medications: Ambulatory Orders Amlodipine Besylate [Norvasc -] 10 mg PO DAILY 12/24/11 Lorazepam [Ativan] 4 mg PO TID MDD 3 11/14/17 Budesonide/Formeterol Fumarate [SYMBICORT 80/4.5mcg -] 1 inh PO BID 01/21/19 Clonidine HCl 0.3 mg PO BID 01/21/19 Dextroamphetamine/Amphetamine [Adderall Xr 30 mg Capsule] 60 mg PO TID 01/21/19 Doxepin HCl 50 mg PO BID 01/21/19 Doxepin HCl [Sinequan -] 25 mg PO TID 01/21/19 Tramadol HCl 50 mg PO TID PRN 01/21/19 predniSONE [Deltasone -] See Taper PO ASDIR #20 tab 01/24/19 Sulfamethoxazole/Trimethoprim [Bactrim Ds -] 1 tab PO BID 02/05/19 Anemia: No Asthma: Yes Cancer: No Cardiac Disorders: Yes (AFIB) CVA: No COPD: No CHF: No Dementia: No Diabetes: No GI Disorders: Yes (GERD) Disorders: No HTN: Yes Hypercholesterolemia: Yes Liver Disease: No Psychiatric Problems: Yes (ADD) Seizures: No Thyroid Disease: No - Surgical History Abdominal Surgery: No Appendectomy: No Cardiac Surgery: No Cholecystectomy: No Lung Surgery: No Neurologic Surgery: No Orthopedic Surgery: Yes (LT SHOULDER SX) - Immunization History Immunization Up to Date: Yes - Suicide/Smoking/Psychosocial Hx Smoking Status: No Smoking History: Unknown if ever smoked Have you smoked in the past 12 months: No Number of Cigarettes Smoked Daily: 0 Information on smoking cessation initiated: No 'Breaking Loose' booklet given: 06/07/16 Hx Alcohol Use: No Drug/Substance Use Hx: No Substance Use Type: None Hx Substance Use Treatment: No Review of Systems - Review of Systems Able to Perform ROS?: Yes Comments:: 12 point review of systems is negative except for what is noted in the history of present illness *Physical Exam - Vital Signs Last Vital Signs Temp Pulse Resp BP Pulse Ox 99.3 F 90 18 129/76 96 02/05/19 23:14 02/05/19 23:14 02/05/19 23:14 02/05/19 23:14 02/05/19 23:14 - Physical Exam Comments: GENERAL:Adult male alert and oriented X 3, in no acute distress HEAD: Normal with no signs of trauma. EYES: PERRLA, EOMI, sclera anicteric, conjunctiva clear. ENT: Ears normal, nares patent, oropharynx clear without exudates. Dry mucous membranes. Moderate amount of dried blood on upper and lower lips No tongue/gingival or buccal wounds evident NECK: Normal range of motion, supple without lymphadenopathy, JVD, or masses. LUNGS: Breath sounds equal, clear to auscultation bilaterally. No wheezes, and no crackles. HEART:Regular rate and rhythm, normal S1 and S2 without murmur, rub or gallop. ABDOMEN:.normal bowel sounds Mild suprapubic tenderness .No masses No distention. EXTREMITIES: Normal range of motion, no edema. No clubbing or cyanosis. No erythema, or tenderness. NEUROLOGICAL: Cranial nerves II through XII grossly intact. Normal speech. No focal neurological deficits. MUSCULOSKELETAL: Back non-tender to palpation, no CVA tenderness SKIN: Warm, Dry, normal turgor, no rashes or lesions noted. Medical Decision Making - Medical Decision Making Patient still had urinary catheter in place with attached leg bag. Bag was filled with light brown urine. Urinary catheter bag removed and catheter reattached. Bladder ultrasound revealed residual urine at approximately 300 mL. Catheter gently flushed under sterile technique using normal saline flush. Moderate amount of small clots obtained. Catheter easily irrigated and urine easily withdrawn from the bladder using syringe. Urinary catheter appears to be functioning well and there is no point in removing it at this time. Patient has not yet had his evening dose of Bactrim DS; he was given this dose here in the emergency room Patient has been urged not to engage in strenuous activity over the next 48 hours (until he is being seen by his urologist). He should drink plenty of fluids and make sure he has adequate rest. He should follow-up with on Thursday,February 07. He should return to the ER if he has severe pain/distention/vomiting/fever *DC/Admit/Observation/Transfer Diagnosis at time of Disposition: History of urologic surgery - Discharge Dispostion Disposition: HOME Condition at time of disposition: Stable - Referrals Referrals: Toan Haro MD [Staff Physician] - - Patient Instructions Printed Discharge Instructions: DI for Dehydration -- Adult Additional Instructions: rest ; avoid strenuous activity for the next 2 days drink plenty of fluids get regular sleep continue medications as prescribed call Dr Haro's office on February 07 the to arrange followup withn 24 hours return to ER if you have worsening pain/abdominal distention/fever - Post Discharge Activity
[2019-02-06] MEDS ORDERED: SULFAMETHOXAZOLE/TRIMETHOPRIM 800MG/160MG D.S. TABLET ONE (00:36)
== END 2019-02-06 01:01 | disposition home or self-care (01) ==
LOC: FER 23:07
DX: Z98.890 Other specified postprocedural states (principal); Z48.03 Encounter for change or removal of drains; I48.91 Unspecified atrial fibrillation; K21.9 Gastro-esophageal reflux disease without esophagitis; I10 Essential (primary) hypertension; F98.8 Other specified behavioral and emotional disorders with onset usually occurring in childhood and adolescence; E78.00 Pure hypercholesterolemia, unspecified; W01.0XXA Fall on same level from slipping, tripping and stumbling without subsequent striking against object, initial encounter; Y93.64 Activity, baseball; Y92.830 Public park as the place of occurrence of the external cause; Z96.0 Presence of urogenital implants
CPT/HCPCS: 99282-25

== ENCOUNTER 2019-03-21 17:30 | Emergency (ER) | payer OTHER ==
[2019-03-21 18:18] VITALS: BP 136/87; PULSE 84; TEMP 98.2; BMI 26.1
--- NOTE | 2019-03-21 18:26 | PDOC ---
Documentation entered by Donna Beach SCRIBE, acting as scribe for Connie Davis MD. Connie Davis MD: This documentation has been prepared by the Baylee dodge Sammi, SCRIBE, under my direction and personally reviewed by me in its entirety. I confirm that the documentation accurately reflects all work, treatment, procedures, and medical decision making performed by me. Attending Attestation - Resident Resident Name: AllisonMyesha - ED Attending Attestation I have performed the following: I have examined & evaluated the patient, The case was reviewed & discussed with the resident, I agree w/resident's findings & plan, Exceptions are as noted - HPI HPI: 03/21/19 18:22 The patient is a 68 year old male, with a significant PMH of HTN, Afib, BPH, GERD, who presents to the emergency department for evaluation s/p mechanical fall this past Thursday night. The patient states he was in the shower when his foot slipped from under him. He states he grabbed the shower curtain which broke some of the impact but reports landing directly on his right shoulder. Denies LOC. The patietn recalls entire incident. PCP: Tai - Physicial Exam PE: 03/21/19 18:24 awake alert lungs clear bilat heart rrr no mrg right shoulder ttp over lateralposterior shoulder no deformity. from pain at abduction to 90 degress. elbow wrist nt nfrom. - Medical Decision Making 03/21/19 18:25 89 yo male s/p right shoulder injury plan xray meds. xray negative. dc home ortho fu.
--- NOTE | 2019-03-21 18:33 | PDOC ---
History of Present Illness - General Chief Complaint: Injury Stated Complaint: RIGHT SHOULDER PAIN Time Seen by Provider: 03/21/19 18:33 - History of Present Illness Initial Comments: Fareed Cowart is a 68yo man with a PMH of HTN, a-fib, BPH who presents with right shoulder pain following a mechanical fall. He reports that he was taking a shower on Thursday night and slipped getting out of the bathtub. He grabbed the shower curtain to help break his fall but landed directly on the right shoulder. He hit his head lightly but denies any LOC. He has had right shoulder pain with arm movement since falling. He tried taking ibuprpofen at home with minimal relief, and he was afraid that he tore his rotator cuff or had a fracture so came for evaluation. Mr Cowart denies any excessive sleepiness, confusion, one-sided weakness, nausea/vomiting or other neurological symptoms since falling. Past History - Past Medical History Allergies/Adverse Reactions: Allergies Allergy/AdvReac Type Severity Reaction Status Date / Time alprazolam [From Xanax] AdvReac Intermediate Verified 01/20/19 15:51 gatifloxacin [From Tequin] AdvReac Intermediate DIARRHEA Verified 01/20/19 15:51 lamotrigine [From Lamictal] AdvReac Intermediate Verified 01/20/19 15:51 quetiapine fumarate AdvReac Intermediate DIZZINESS, Verified 01/20/19 15:51 [From Seroquel] NIGHTMARES zolpidem tartrate AdvReac Mild DEPRESSION, Verified 01/20/19 15:51 [From Ambien] DISORIENTED nickel AdvReac Verified 01/20/19 15:51 trazodone AdvReac Verified 01/20/19 16:05 Home Medications: Ambulatory Orders Amlodipine Besylate [Norvasc -] 10 mg PO DAILY 12/24/11 Lorazepam [Ativan] 4 mg PO TID PRN MDD 3 11/14/17 Budesonide/Formeterol Fumarate [SYMBICORT 80/4.5mcg -] 1 inh PO BID 01/21/19 Clonidine HCl 0.3 mg PO BID 01/21/19 Dextroamphetamine/Amphetamine [Adderall Xr 30 mg Capsule] 60 mg PO TID 01/21/19 Doxepin HCl 50 mg PO BID 01/21/19 Doxepin HCl [Sinequan -] 25 mg PO TID 01/21/19 Tramadol HCl 50 mg PO TID PRN 01/21/19 Anemia: No Asthma: Yes Cancer: No Cardiac Disorders: Yes (AFIB) CVA: No COPD: No CHF: No Dementia: No Diabetes: No GI Disorders: Yes (GERD) Disorders: No HTN: Yes Hypercholesterolemia: Yes Liver Disease: No Psychiatric Problems: Yes (ADD) Seizures: No Thyroid Disease: No - Surgical History Abdominal Surgery: No Appendectomy: No Cardiac Surgery: No Cholecystectomy: No Lung Surgery: No Neurologic Surgery: No Orthopedic Surgery: Yes (LT SHOULDER SX) - Immunization History Immunization Up to Date: Yes - Suicide/Smoking/Psychosocial Hx Smoking Status: No Smoking History: Never smoked Have you smoked in the past 12 months: No Number of Cigarettes Smoked Daily: 0 'Breaking Loose' booklet given: 06/07/16 Hx Alcohol Use: No Drug/Substance Use Hx: No Substance Use Type: None Hx Substance Use Treatment: No Review of Systems - Review of Systems Comments:: General: No fevers, no chills, no weight or appetite change, no malaise HEENT: No changes in vision, no changes in hearing, no congestion, no sore throat CV: No chest pain, no palpitations, no LE edema Pulm: No SOB, no cough, no wheezing GI: No nausea or vomiting, no change in bowel habits, no melena : No frequency, no urgency, no dysuria Musc: See HPI Skin: No rash, no lesions, no erythema Endo: No excessive thirst, no heat/cold intolerance Heme: No unusual bruising or bleeding, no swollen glands Neuro: No syncope, no numbness/tingling, no focal weakness Vasc: No claudication Psych: No recent change in mood, no SI or HI *Physical Exam - Vital Signs Last Vital Signs Temp Pulse Resp BP Pulse Ox 98.2 F 84 16 136/87 98 03/21/19 17:48 03/21/19 17:48 03/21/19 17:48 03/21/19 17:48 03/21/19 17:48 - Physical Exam Comments: General: Comfortable, no acute distress HEENT: Atraumatic, PERRL, EOMI, MMM, voice normal, normal neck ROM Cards: RRR, no murmur appreciated Pulm: Comfortable on room air Abd: Soft, nontender, nondistended Ext: Rt shoulder with diffuse swelling, slightly warm to touch. No deformity or focal injury noted. RUE ROM intact, equal to LUE. No LE edema. Extremities WWP Skin: Normal color, no rashes or lesions Neuro: A&Ox3, CN grossly intact, normal speech, motor/sensory grossly intact and symmetric Psych: Mood appropriate to situation Medical Decision Making - Medical Decision Making 03/21/19 18:33 Fareed Cowart is a 68yo man with a PMH of HTN, a-fib, BPH who presents with right shoulder pain following a mechanical fall 2 days ago. - No visible injury but swelling to right shoulder; xray ordered on arrival - Xray right shoulder completed, no acute fracture or other injury noted - Pt recently took ibuprofen, declines acetaminophen at this time - Will d/c home with ortho follow up Discussed with Dr Davis. Myesha Cooper PGY2 *DC/Admit/Observation/Transfer Diagnosis at time of Disposition: Shoulder sprain Qualifiers: Encounter type: initial encounter Shoulder sprain type: unspecified sprain Laterality: right Qualified Code(s): S43.401A - Unspecified sprain of right shoulder joint, initial encounter - Discharge Dispostion Disposition: HOME Condition at time of disposition: Good - Referrals Referrals: Deacon Lujan MD [Primary Care Provider] - Darin Jones [Non Staff, Medical] - - Patient Instructions Printed Discharge Instructions: Contusion, Shoulder Sprain Additional Instructions: you can ice your shoulder. take ibuprofen 600 mg every 8 hrs as needed for pain. follow up with your orthopedist dr jones. call to schedule. return for any problems or concerns. your xray are negative for fracture. - Post Discharge Activity
== END 2019-03-21 18:33 | disposition home or self-care (01) ==
LOC: FER 17:30
DX: S43.401A Unspecified sprain of right shoulder joint, initial encounter (principal); W18.39XA Other fall on same level, initial encounter; Y93.E1 Activity, personal bathing and showering; Y92.002 Bathroom of unspecified non-institutional (private) residence as the place of occurrence of the external cause; I10 Essential (primary) hypertension; I48.91 Unspecified atrial fibrillation; N40.0 Benign prostatic hyperplasia without lower urinary tract symptoms; E78.00 Pure hypercholesterolemia, unspecified; K21.9 Gastro-esophageal reflux disease without esophagitis
CPT/HCPCS: 73030-TC-RT-FY; 99281-25

== ENCOUNTER 2019-04-22 14:04 | Inpatient (IN) | payer OTHER ==
--- NOTE | 2019-04-22 14:18 | PDOC ---
Rapid Medical Evaluation Chief Complaint: Injury Time Seen by Provider: 04/22/19 14:16 Medical Evaluation: Allergies Allergy/AdvReac Type Severity Reaction Status Date / Time alprazolam [From Xanax] AdvReac Intermediate Verified 01/20/19 15:51 gatifloxacin [From Tequin] AdvReac Intermediate DIARRHEA Verified 01/20/19 15:51 lamotrigine [From Lamictal] AdvReac Intermediate Verified 01/20/19 15:51 quetiapine fumarate AdvReac Intermediate DIZZINESS, Verified 01/20/19 15:51 [From Seroquel] NIGHTMARES zolpidem tartrate AdvReac Mild DEPRESSION, Verified 01/20/19 15:51 [From Ambien] DISORIENTED nickel AdvReac Verified 01/20/19 15:51 trazodone AdvReac Verified 01/20/19 16:05 Vital Signs Temp Pulse Resp BP Pulse Ox 97.6 F 74 16 135/76 98 04/22/19 14:11 04/22/19 14:11 04/22/19 14:11 04/22/19 14:11 04/22/19 14:11 04/22/19 14:17 I performed a brief in-person evaluation of this patient. 68-year-old male with a history of psychiatric disorder who started Tegretol about 1.5 wks ago and has since had multiple falls. He fell today (witnessed by his ) and denies head trauma or LOC. His notes change in mental status , confusion, forgetfulness, and slurred speech for several days, which she attributes to the new medication. Alert to person, place. Speech is mildly slurred. No signs of head trauma or focal deficits other than speech. Appears confused when recounting today's events, angry/confrontational towards . I have ordered the following: head CT, basic labs, tox. Patient to proceed to the ED for further evaluation. Discharge Disposition - Diagnosis Altered mental status - Discharge Dispostion Condition at time of disposition: Stable - Referrals - Patient Instructions - Post Discharge Activity
--- NOTE | 2019-04-22 14:58 | PDOC ---
Attending Attestation - Resident Resident Name: Perez Pitts - ED Attending Attestation I have performed the following: I have examined & evaluated the patient, The case was reviewed & discussed with the resident, I agree w/resident's findings & plan, Exceptions are as noted - HPI HPI: 68yo man with a PMH of HTN, a-fib, BPH, anxiety, depression, presents with AMS and falls - Physicial Exam PE: 04/22/19 18:46 Reviewed Residents PE - Medical Decision Making 04/22/19 18:46 68 years old with multiple medical problems on multiple medications presents ED with altered mental status and multiple falls Case discussed with patient's neurologist we'll admit for altered mental status and further evaluation Admission criteria for inpatient care indicated secondary to delirium of uncertain etiology that has not responded to appropriate treatment in the emergency department setting. Heart Score/ECG Review - ECG Impressions Comment:: 04/22/19 18:48 EKG performed at 1533 demonstrates normal sinus rhythm no ST elevations incomplete right bundle-branch block interpreted by me
[2019-04-22] MEDS ORDERED: SODIUM CHLORIDE 1,000 ML IV ONE (15:10)
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
[2019-04-22 15:19] LABS: EOS % 2.7 % (0-4.5); HEMATOCRIT 28.9 % (35.4-49); HEMOGLOBIN 8.8 GM/dL (11.7-16.9); LYMPH % 15.1 % (8-40); MCH 20.2 pg (25.7-33.7); MCHC 30.3 g/dl (32.0-35.9); MEAN CELL VOLUME 66.8 fl (80-96); MONO % 5.6 % (3.8-10.2); NEUT % 75.6 % (42.8-82.8); PLATELET COUNT 375 K/MM3 (134-434); RBC 4.33 M/mm3 (4.00-5.60); RDW 16.9 % (11.9-15.9)
[2019-04-22 15:55] LABS: ALBUMIN 3.9 g/dl (3.4-5.0); ALK PHOS 91 U/L (45-117); ANION GAP 8 MMOL/L (8-16); BILIRUBIN,TOTAL 0.2 mg/dL (0.2-1); BLOOD UREA NITROGEN 16.6 mg/dL (7-18); CHLORIDE 107 mmol/L (98-107); CO2 25 mmol/L (21-32); CREATININE 1.3 mg/dL (0.55-1.3); GLUCOSE,RANDOM 90 mg/dL (74-106); SGOT/AST 44 U/L (15-37); SGPT/ALT 38 U/L (13-61); SODIUM 139 mmol/L (136-145)
[2019-04-22 16:07] LABS: INR 1.18 (0.83-1.09); PROTHROMBIN TIME (PATIENT) 13.9 SEC (9.7-13.0)
[2019-04-22 16:18] LABS: ANISOCYTOSIS 1+; PLATELET ESTIMATE ADEQUATE
[2019-04-22 16:43] LABS: COCAINE, UR NEGATIVE ng/ml (CUTOFF=300); METHADONE, UR NEGATIVE ng/ml (CUTOFF=300); OPIATES, URI NEGATIVE ng/ml (CUTOFF=300); PHENCYCLIDINE,URINE NEGATIVE ng/ml (CUTOFF=25); URINE BARBITURATES NEGATIVE ng/ml (CUTOFF=200); URINE BENZODIAZEPINES NEGATIVE ng/ml (CUTOFF=200)
[2019-04-22 16:45] LABS: URINE AMPHETAMINES POSITIVE ng/ml (CUTOFF=500)
[2019-04-22 16:49] LABS: EPI CELLS 10.2 /HPF (0-5/HPF); HYALINE CASTS 14 /lpf (0-8); URINE APPEARANCE CLEAR; URINE BACTERIA 6.8 /hpf (NEGATIVE); URINE BILIRUBIN NEGATIVE (NEGATIVE); URINE COLOR YELLOW; URINE GLUCOSE (UA) NEGATIVE (NEGATIVE); URINE KETONE NEGATIVE (NEGATIVE); URINE LEUK ESTERASE 2+ (NEGATIVE); URINE NITRITE NEGATIVE (NEGATIVE); URINE PROTEIN TRACE (NEGATIVE); URINE RBC 4 /hpf (0-4); URINE UROBILINOGEN 0.2 mg/dL (0.2-1.0); URINE WBC 25 /hpf (0-5)
[2019-04-22 17:14] LABS: YEAST POSITIVE (NEGATIVE)
[2019-04-22] MEDS ORDERED: CEFTRIAXONE 1,000 MG in DEXTROSE 5%-WATER - 50 ML IVPB ONE (17:30)
[2019-04-22] MEDS ORDERED: CEFTRIAXONE 1 GM/50 ML BAG ONE (17:40)
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
[2019-04-22 20:58] VITALS: BMI 28.4
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
[2019-04-22] MEDS: HEPARIN NA (PORCINE) 5,000 UNITS/ML 1ML VIAL SQ SCH (22:41)
[2019-04-23] MEDS ORDERED: LORAZEPAM 4 MG PO PRN (01:03)
[2019-04-23] MEDS ORDERED: ALBUTEROL SO4 8 GM HFA INHALER IH PRN (01:03)
[2019-04-23] MEDS ORDERED: PATIENT'S OWN MEDICATION (NON-FORMULARY) (Dextroamphetamine/Amphetamine [Adderall Xr 30 Mg PO SCH ×2 (06:00→18:14)
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
[2019-04-23 08:37] LABS: EOS % 4.2 % (0-4.5); HEMATOCRIT 27.2 % (35.4-49); HEMOGLOBIN 8.3 GM/dL (11.7-16.9); LYMPH % 18.4 % (8-40); MCH 20.3 pg (25.7-33.7); MCHC 30.4 g/dl (32.0-35.9); MEAN CELL VOLUME 66.8 fl (80-96); MEAN PLT VOLUME 8.3 fl (7.5-11.1); MONO % 6.4 % (3.8-10.2); PLATELET COUNT 336 K/MM3 (134-434); RBC 4.08 M/mm3 (4.00-5.60); RDW 16.8 % (11.9-15.9); WHITE BLOOD COUNT 9.5 K/mm3 (4.0-10.0)
[2019-04-23 08:51] LABS: BLOOD UREA NITROGEN 11.8 mg/dL (7-18); CALCIUM 8.3 mg/dL (8.5-10.1); MAGNESIUM 2.3 mg/dL (1.8-2.4); PHOSPHOROUS 3.1 mg/dL (2.5-4.9)
[2019-04-23 09:05] LABS: INR 1.19 (0.83-1.09); PROTHROMBIN TIME (PATIENT) 14.1 SEC (9.7-13.0)
[2019-04-23] MEDS ORDERED: PATIENT'S OWN MEDICATION (NON-FORMULARY) (Simvastatin [Simvastatin] 40 MG) PO SCH (10:00)
[2019-04-23] MEDS: HEPARIN NA (PORCINE) 5,000 UNITS/ML 1ML VIAL SQ SCH ×3 (10:21→21:47)
[2019-04-23] MEDS ORDERED: DEXTROSE 5%-WATER - 50 ML IVPB ONE (10:42)
[2019-04-23] MEDS ORDERED: cefTRIAXone SODIUM 1 GM VIAL ONE (10:42)
[2019-04-23] MEDS: CEFTRIAXONE 1 GM in DEXTROSE 5%-WATER - 50 ML IVPB SCH (11:01)
[2019-04-23] MEDS: LORazepam 1 MG TABLET PO PRN ×2 (11:01→21:45)
[2019-04-23] MEDS: cloNIDine HCL 0.1 MG TABLET PO SCH ×2 (11:01→21:46)
[2019-04-23] MEDS: amLODIPine BESYLATE 10 MG TABLET (FP) PO SCH (11:02)
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
[2019-04-23] MEDS ORDERED: PT OWN MED DRAWER 7, Y5N ONE ×2 (12:19→14:33)
--- NOTE | 2019-04-23 12:43 | PN ---
KETTY Salguero Note Chief Complaint: UTI urinaary retention History of Present Illness: mendoza to sd clear Currently afebrile - Objective Vital Signs: Vital Signs Temperature 98.4 F 04/23/19 05:20 Pulse Rate 74 04/23/19 05:20 Respiratory Rate 20 04/23/19 05:20 Blood Pressure 118/52 L 04/23/19 05:20 O2 Sat by Pulse Oximetry (%) 98 04/22/19 14:11 Labs/Additional Data: CBC, BMP 04/23/19 07:58 04/23/19 07:58 INR, PTT INR 1.19 (0.83-1.09) H 04/23/19 07:58 Problem List - Problems (1) UTI (urinary tract infection) Assessment/Plan: Cont mendoza to SD Restart Flomax 0.4 daily and Bethecol 50 mg daily if not medically contraindicated Plan for voiding trial Thursday Code(s): N39.0 - URINARY TRACT INFECTION, SITE NOT SPECIFIED Qualifiers: Urinary tract infection type: site unspecified Hematuria presence: without hematuria Qualified Code(s): N39.0 - Urinary tract infection, site not specified
[2019-04-23] MEDS: BUDESONIDE/FORMETEROL FUMARATE 80/4.5 mcg INHALER IH SCH ×2 (14:38→21:46)
[2019-04-23] MEDS: BETHANECHOL CHLORIDE 10 MG TABLET PO SCH ×2 (14:39→21:44)
[2019-04-23 14:55] LABS: RETICULOCYTES 1.58 % (0.5-1.5)
--- NOTE | 2019-04-23 16:16 | CONS ---
GASTROINTESTINAL CONSULTATION DATE OF CONSULTATION: DATE OF DICTATION: 04/23/2019 HISTORY OF PRESENT ILLNESS: The patient is a 68-year-old man with a past medical history of BPH, Gomez placement 4 days prior to arrival by his outpatient urologist, anxiety, hypertension, hyperlipidemia, recurrent pneumonia, atrial fibrillation, COPD, sinus surgery and shoulder surgery, who presented to his urologist's office with altered mental status. As per the , it was thought to be secondary to too many outpatient medications. Apparently, he has been more fatigued and a questionable low-grade temperature at home. He is a very poor historian. States that he does not have any abdominal pain, nausea, vomiting, melena, hematochezia, heartburn, constipation or diarrhea. States he had a colonoscopy and upper endoscopy which were done at [facility]. He states that his first colonoscopy revealed polyps; the second one was clean. During this hospitalization, he was noted to have anemia. PAST MEDICAL AND SURGICAL HISTORY: As listed in the HPI. ALLERGIES: ALPRAZOLAM; GATIFLOXACIN; LAMOTRIGINE; QUETIAPINE FUMARATE. SOCIAL HISTORY: Does not smoke, drink or use drugs. He is an ex-smoker in the past. HOME MEDICATIONS: Include amlodipine, Ativan, Symbicort, clonidine, Adderall, doxepin, and Tegretol. REVIEW OF SYSTEMS: Limited, as per the HPI. PHYSICAL EXAMINATION: Vital Signs: Temperature 98, pulse 77, blood pressure 125/56, pulse oximetry 95% on room air, respiratory rate 12. General: In no acute distress. HEENT: Anicteric sclera. Cardiovascular: S1, S2. Regular rate and rhythm. Lungs: Bilaterally clear to auscultation. Abdomen: Soft and nontender with normal bowel sounds. Extremities: No edema. LABORATORIES: White blood cell count 9.5, hemoglobin 8.3 and hematocrit 27 (on admission, it was 8.8 over 28), MCV 66, platelet count 336. INR 1.19. Sodium 140, potassium 4, BUN 11, creatinine 1, lactic acid 0.9, iron 11, iron saturation 2, ferritin 9.3, AST 44, ALT 38, total bilirubin 0.2, alkaline phosphatase 91. Troponin is negative. Urine: Leukocyte esterase 2+. Toxicology screen is positive for amphetamines. IMAGING: He had a head CT which revealed no intracranial pathology. IMPRESSION: Microcytic anemia. Gastrointestinal blood loss cannot be excluded at this time secondary to peptic ulcer disease, angiectasias, colon polyps or adenocarcinoma. RECOMMENDATIONS: Stool for occult blood x3. For further evaluation of his anemia, he would benefit from a diagnostic upper endoscopy as well as colonoscopy. Once the acute process has resolved, his diet should be advanced as tolerated. He should be treated for acute metabolic encephalopathy, as well as urinary tract infection, as per the primary medical team. Patient will be followed by the GI service. DO MICHELLE MATAMOROS/[id number]
[2019-04-23] MEDS: ACETAMINOPHEN 325 MG TABLET (FP) PO PRN (17:25)
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
[2019-04-23] MEDS: DOXEPIN HCL PO SCH (21:44)
[2019-04-23] MEDS: carBAMazepine 100 MG TAB.CHEW PO SCH (21:46)
[2019-04-23] MEDS: TAMSULOSIN HCL 0.4 MG CAP PO SCH (21:46)
[2019-04-23] MEDS: ATORVASTATIN CA 20 MG TABLET (FP) PO SCH (21:46)
[2019-04-23] MEDS ORDERED: DOXEPIN HCL 25 MG CAPSULE PO SCH (22:00)
[2019-04-24] MEDS: BETHANECHOL CHLORIDE 10 MG TABLET PO SCH ×3 (05:33→21:43)
--- NOTE | 2019-04-24 07:43 | PN.GI ---
GI Progress Note Subjective: no new complaints - denies abdominal pain / nausea/ vomiting or blood in the stool - Objective Vital Signs: Vital Signs Temperature 97.8 F 04/24/19 04:50 Pulse Rate 86 04/24/19 04:50 Respiratory Rate 20 04/24/19 04:50 Blood Pressure 122/66 04/24/19 04:50 O2 Sat by Pulse Oximetry (%) 98 04/22/19 14:11 Constitutional: Well Nourished, No Distress, Calm Eyes: Yes: WNL HENT: Yes: WNL Neck: Yes: WNL Cardiovascular: Yes: WNL Respiratory: Yes: WNL, Regular, CTA Bilaterally Gastrointestinal Inspection: Yes: WNL ...Auscultate: Yes: Normoactive Bowel Sounds Extremities: Yes: WNL Edema: No Labs: CBC, BMP 04/23/19 07:58 04/23/19 07:58 INR, PTT INR 1.19 (0.83-1.09) H 04/23/19 07:58 Problem List - Problems (1) Anemia Assessment/Plan: stool for occult blood ppi therapy once acute process has resolved he would benefit from a diagnostic egd / colonoscopy( may be done outpt) psych f/u Code(s): D64.9 - ANEMIA, UNSPECIFIED (2) Altered mental status Code(s): R41.82 - ALTERED MENTAL STATUS, UNSPECIFIED Qualifiers: Altered mental status type: unspecified Qualified Code(s): R41.82 - Altered mental status, unspecified (3) UTI (urinary tract infection) Code(s): N39.0 - URINARY TRACT INFECTION, SITE NOT SPECIFIED Qualifiers: Urinary tract infection type: site unspecified Hematuria presence: without hematuria Qualified Code(s): N39.0 - Urinary tract infection, site not specified (4) Anxiety disorder Code(s): F41.9 - ANXIETY DISORDER, UNSPECIFIED
[2019-04-24] MEDS ORDERED: carBAMazepine 200 MG TABLET PO SCH (08:00)
[2019-04-24] MEDS ORDERED: DEXTROSE 5%-WATER - 50 ML IVPB ONE (08:37)
[2019-04-24] MEDS ORDERED: cefTRIAXone SODIUM 1 GM VIAL ONE (08:37)
[2019-04-24] MEDS ORDERED: PT OWN MED DRAWER 7, Y5N ONE ×3 (08:38→23:40)
[2019-04-24 09:02] LABS: BASO % 1.1 % (0-2.0); EOS % 5.1 % (0-4.5); HEMATOCRIT 27.3 % (35.4-49); HEMOGLOBIN 8.3 GM/dL (11.7-16.9); LYMPH % 23.5 % (8-40); MCH 20.3 pg (25.7-33.7); MCHC 30.3 g/dl (32.0-35.9); MEAN PLT VOLUME 8.4 fl (7.5-11.1); MONO % 7.2 % (3.8-10.2); NEUT % 63.1 % (42.8-82.8); PLATELET COUNT 332 K/MM3 (134-434); RBC 4.08 M/mm3 (4.00-5.60); RDW 17.4 % (11.9-15.9); WHITE BLOOD COUNT 8.3 K/mm3 (4.0-10.0)
[2019-04-24] MEDS: HEPARIN NA (PORCINE) 5,000 UNITS/ML 1ML VIAL SQ SCH ×3 (09:02→21:54)
[2019-04-24] MEDS: amLODIPine BESYLATE 10 MG TABLET (FP) PO SCH (09:03)
[2019-04-24] MEDS: cloNIDine HCL 0.1 MG TABLET PO SCH ×2 (09:03→21:43)
[2019-04-24] MEDS: CEFTRIAXONE 1 GM in DEXTROSE 5%-WATER - 50 ML IVPB SCH (09:05)
[2019-04-24] MEDS: BUDESONIDE/FORMETEROL FUMARATE 80/4.5 mcg INHALER IH SCH ×2 (09:05→21:58)
[2019-04-24 09:14] LABS: BILIRUBIN,TOTAL 0.2 mg/dL (0.2-1); BLOOD UREA NITROGEN 11.8 mg/dL (7-18); CALCIUM 8.2 mg/dL (8.5-10.1); CREATININE 0.9 mg/dL (0.55-1.3); MAGNESIUM 2.2 mg/dL (1.8-2.4); POTASSIUM 4.3 mmol/L (3.5-5.1); TOT PROT 6.4 g/dl (6.4-8.2)
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
--- NOTE | 2019-04-24 12:55 | CON.PSY ---
Psychiatry Consult Chief Complaint: Casev discussed with Dr. Bishop and patient seen for Psych evaluation. ^8 renée old with a long Hiostory of BiPOlar Disorder . mixed type , ADHD, anxiety Disorder who appears to be refractory to various Psychotropic medications and combinations over the yeras. Dr. Bishop has been treating him. Patient admitted with ACute AMS , being treated for UTI. Reports indicate that he has been displaying mixed affect. Patient has some manic like thinking , I was running back wards at home. Symptoms: reports: Impaired Concentration, Racing Thoughts, Impulsivity, Disorganized/Disruptive Thoughts - Previous Psychiatric Treatment Outpatient: Less than 6 mos ago Inpatient: One prior admission - Previous Substance Abuse Treatment Outpatient: None - Reason for Previous Treatment Reason for Previous Treatment: Biploar Illness, Anxiety or Panic Disorder - Current Medications Current Medications: Active Medications Acetaminophen (Tylenol -) 650 mg PO Q4H PRN PRN Reason: PAIN LEVEL 1-5 Last Admin: 04/23/19 17:25 Dose: 650 mg Albuterol Sulfate (Ventolin Hfa Inhaler -) 2 puff IH Q4H PRN PRN Reason: ASTHMA Amlodipine Besylate (Norvasc -) 10 mg PO DAILY [facility] Last Admin: 04/24/19 09:03 Dose: 10 mg Aripiprazole (Abilify) 5 mg PO [facility] Atorvastatin Calcium (Lipitor -) 20 mg PO [facility] Last Admin: 04/23/19 21:46 Dose: 20 mg Bethanechol Chloride (Urecholine -) 10 mg PO TID [facility] Last Admin: 04/24/19 05:33 Dose: 10 mg Budesonide/Formoterol Fumarate (Symbicort 80/4.5mcg -) 1 puff IH BID [facility] Last Admin: 04/24/19 09:05 Dose: 1 puff Carbamazepine (Tegretol -) 200 mg PO DAILY@0800 [facility] Last Admin: 04/24/19 09:02 Dose: 200 mg Carbamazepine (Tegretol -) 300 mg PO [facility] Last Admin: 04/23/19 21:46 Dose: 300 mg Clonidine (Catapres -) 0.2 mg PO BID [facility] Last Admin: 04/24/19 09:03 Dose: 0.2 mg Doxepin HCl 150 mg/ Doxepin (HCl 25 mg) 175 mg PO [facility] Last Admin: 04/23/19 21:44 Dose: 175 mg Heparin Sodium (Porcine) (Heparin -) 5,000 unit SQ BID [facility] Last Admin: 04/24/19 09:02 Dose: Not Given Ceftriaxone Sodium 1 gm/ (Dextrose) 50 mls @ 100 mls/hr IVPB DAILY [facility]; Protocol Last Admin: 04/24/19 09:05 Dose: 100 mls/hr Lorazepam (Ativan -) 4 mg PO TID PRN PRN Reason: ANXIETY Last Admin: 04/23/19 21:45 Dose: 4 mg Tamsulosin HCl (Flomax -) 0.4 mg PO HS [facility] Last Admin: 04/23/19 21:46 Dose: 0.4 mg - Allergies Allergies: Allergies Allergy/AdvReac Type Severity Reaction Status Date / Time alprazolam [From Xanax] AdvReac Intermediate Verified 01/20/19 15:51 gatifloxacin [From Tequin] AdvReac Intermediate DIARRHEA Verified 01/20/19 15:51 lamotrigine [From Lamictal] AdvReac Intermediate Verified 01/20/19 15:51 quetiapine fumarate AdvReac Intermediate DIZZINESS, Verified 01/20/19 15:51 [From Seroquel] NIGHTMARES zolpidem tartrate AdvReac Mild DEPRESSION, Verified 01/20/19 15:51 [From Ambien] DISORIENTED nickel AdvReac Verified 01/20/19 15:51 trazodone AdvReac Verified 01/20/19 16:05 - Current Living Status Usual Living Arrangement: With Spouse - Current Mental Status Evaluation Appearance: Disheveled Attitude: Guarded - Affect Affect: Labile Appropriateness: Appropriate to Content - Mood Mood: Euphoric - Speech/Language Expressive: Coherent - Psychomotor Activity Psychomotor Activity: Slowed - Thought Process Thought Process: Circumstantial - Thought Content Hallucinations: Absent Delusions: Present Type: Grandiose - Self Perception Self Perception: No Impairment - Cognition Attention: Alert Orientation: Time Memory, Immediate Recall: Intact Memory, Short Term: 2/3 Memory, Remote with Promptin/3 - Concentration Serial Sevens Intact: No Simple Calculations Intact: Yes - Abstraction Proverb Interpretation: Intact Judgement: Minimally Impaired - Insight Insight: Intact - Suicidal Ideation Suicidal Ideation: No - Homicidal Ideation Homicidal Ideation: No Assessment/Plan 1) Continue with Abilify for Manic symptoms. 2) ? d/c Tegretol. 3) Can go to In Patient Psych Voluntarily to stabilize mental status after medically stable.
[2019-04-24] MEDS: LORazepam 1 MG TABLET PO PRN ×2 (13:06→22:45)
--- NOTE | 2019-04-24 14:53 | PN ---
Progress Note (short form) - Note Progress Note: Psychiatry consultation greatly appreciated-will reduce than d/c tegretol Pt. remains with labile with limited insight/judgement. D/w pt/ and 2 children his condition-pt.and family are agreeing for him to be tx. to psychiatry Plan: Reduce tegretol to 300mg hs Will request med.to consider changing [id number] HTN) to other meds [facility] [phone]-[email or web address], insurance information, current admission notes, psychiatrists consdultation note. He will have to sign in voluntarily, pt. is agreeing to it.
--- NOTE | 2019-04-24 16:56 | EKG ---
Test Reason : Blood Pressure : / mmHG Vent. Rate : 067 BPM Atrial Rate : 067 BPM P-R Int : 126 ms QRS Dur : 096 ms QT Int : 416 ms P-R-T Axes : -45 -03 033 degrees QTc Int : 439 ms UNUSUAL P AXIS, POSSIBLE ECTOPIC ATRIAL RHYTHM NONSPECIFIC ST ABNORMALITY ABNORMAL ECG WHEN COMPARED WITH ECG OF 23-JAN-2019 23:21, LIKELY NO SIGNIFICANT CHANGES Confirmed by FERDINAND DAY, AMADA ([id number]) on 04/24/2019 4:56:27 PM Referred By: Confirmed By:AMADA STREETER MD
[2019-04-24] MEDS: TAMSULOSIN HCL 0.4 MG CAP PO SCH (21:43)
[2019-04-24] MEDS: ATORVASTATIN CA 20 MG TABLET (FP) PO SCH (21:43)
[2019-04-24] MEDS: ARIPiprazole 5 MG TABLET (FP) PO SCH (21:43)
[2019-04-24] MEDS: DOXEPIN HCL PO SCH (21:44)
[2019-04-24] MEDS: carBAMazepine 100 MG TAB.CHEW PO SCH (21:45)
[2019-04-24] MEDS ORDERED: MAG HYDROX/AL HYDROX/SIMETH -MYLANTA- ORAL SUSPENSION PO ONE ×2 (23:01→23:45)
[2019-04-24] MEDS: ACETAMINOPHEN 325 MG TABLET (FP) PO PRN (23:10)
[2019-04-25] MEDS ORDERED: PT OWN MED DRAWER 7, Y5N ONE (06:00)
[2019-04-25] MEDS: BETHANECHOL CHLORIDE 10 MG TABLET PO SCH ×3 (06:18→21:28)
[2019-04-25] MEDS: amLODIPine BESYLATE 10 MG TABLET (FP) PO SCH (10:15)
[2019-04-25] MEDS: LORazepam 1 MG TABLET PO PRN ×3 (10:15→21:27)
[2019-04-25] MEDS: cloNIDine HCL 0.1 MG TABLET PO SCH ×2 (10:15→21:29)
[2019-04-25] MEDS: BUDESONIDE/FORMETEROL FUMARATE 80/4.5 mcg INHALER IH SCH ×2 (10:15→21:32)
[2019-04-25] MEDS: HEPARIN NA (PORCINE) 5,000 UNITS/ML 1ML VIAL SQ SCH ×2 (10:15→21:29)
--- NOTE | 2019-04-25 11:52 | PN ---
Progress Note, Physician History of Present Illness: no new issues agrees for placement to [facility] - Current Medication List Current Medications: Active Medications Acetaminophen (Tylenol -) 650 mg PO Q4H PRN PRN Reason: PAIN LEVEL 1-5 Last Admin: 04/24/19 23:10 Dose: 650 mg Albuterol Sulfate (Ventolin Hfa Inhaler -) 2 puff IH Q4H PRN PRN Reason: ASTHMA Amlodipine Besylate (Norvasc -) 10 mg PO DAILY [facility] Last Admin: 04/25/19 10:15 Dose: 10 mg Aripiprazole (Abilify) 5 mg PO [facility] Last Admin: 04/24/19 21:43 Dose: 5 mg Atorvastatin Calcium (Lipitor -) 20 mg PO [facility] Last Admin: 04/24/19 21:43 Dose: 20 mg Bethanechol Chloride (Urecholine -) 10 mg PO TID [facility] Last Admin: 04/25/19 06:18 Dose: 10 mg Budesonide/Formoterol Fumarate (Symbicort 80/4.5mcg -) 1 puff IH BID [facility] Last Admin: 04/25/19 10:15 Dose: 1 puff Carbamazepine (Tegretol -) 300 mg PO [facility] Last Admin: 04/24/19 21:45 Dose: 300 mg Clonidine (Catapres -) 0.2 mg PO BID [facility] Last Admin: 04/25/19 10:15 Dose: 0.2 mg Doxepin HCl 150 mg/ Doxepin (HCl 25 mg) 175 mg PO [facility] Last Admin: 04/24/19 21:44 Dose: 175 mg Heparin Sodium (Porcine) (Heparin -) 5,000 unit SQ BID [facility] Last Admin: 04/25/19 10:15 Dose: Not Given Lorazepam (Ativan -) 4 mg PO TID PRN PRN Reason: ANXIETY Last Admin: 04/25/19 10:15 Dose: 4 mg Tamsulosin HCl (Flomax -) 0.4 mg PO [facility] Last Admin: 04/24/19 21:43 Dose: 0.4 mg - Objective Vital Signs: Vital Signs Temperature 98.2 F 04/25/19 10:20 Pulse Rate 78 04/25/19 10:20 Respiratory Rate 17 04/25/19 10:20 Blood Pressure 116/60 04/25/19 10:20 O2 Sat by Pulse Oximetry (%) 98 09/27/19 14:11 Labs: CBC, BMP 04/24/19 08:03 04/24/19 08:03 INR, PTT INR 1.19 (0.83-1.09) H 04/23/19 07:58 Problem List - Problems (2) Altered mental status Code(s): R41.82 - ALTERED MENTAL STATUS, UNSPECIFIED Qualifiers: Altered mental status type: unspecified Qualified Code(s): R41.82 - Altered mental status, unspecified Assessment/Plan Bipolar manic mixed, with progressive emotional instability agrees for PSYCH inpatient admission at [facility], await transfer neurolgically stable DR KIRBY
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
[2019-04-25] MEDS ORDERED: SENNOSIDES 8.6MG TABLET (FP) PO PRN (12:20)
[2019-04-25] MEDS ORDERED: DOCUSATE SODIUM 100 MG CAPSULE (FP) PO PRN (12:20)
[2019-04-25] MEDS ORDERED: POLYETHYLENE GLYCOL 3350 119 GM BTL PO PRN (12:20)
--- NOTE | 2019-04-25 13:11 | EKG ---
Test Reason : Blood Pressure : / mmHG Vent. Rate : 075 BPM Atrial Rate : 075 BPM P-R Int : 128 ms QRS Dur : 098 ms QT Int : 374 ms P-R-T Axes : 064 006 063 degrees QTc Int : 417 ms NORMAL SINUS RHYTHM NONSPECIFIC ST ABNORMALITY ABNORMAL ECG WHEN COMPARED WITH ECG OF 22-APR-2019 15:33, SINUS RHYTHM HAS REPLACED ECTOPIC ATRIAL RHYTHM Confirmed by SHARRI NIETO MD ([id number]) on 04/25/2019 1:11:23 PM Referred By: CHAD SANDERS Confirmed By:SHARRI NIETO MD
--- NOTE | 2019-04-25 13:31 | PN ---
Progress Note (short form) - Note Progress Note: Patient seen for Psych follow up. Case discussed with and further history obtained. 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 unable to manage him and he is non compliant with his Psych meds and continues to display manic and grandiosed [id number]. Patient reports he runs backwards because he can. Has [id number] delusionla nad irrational thoughts at this time. Not suicidal or Homicidal at this time. Displaying poor Judgment. REC: 1) Continue with Abilify. 2) Will do 2 PC for In Patient Psych admission.
[2019-04-25] MEDS: FERROUS SO4 325 MG TABLET (FP) PO SCH (15:24)
--- NOTE | 2019-04-25 15:45 | PN ---
Progress Note (short form) - Note Progress Note: HPI: No acute events noted overnight. Pt reports he has chest pain with worsening movement without radiation at this time. Denies shortness of breath, lightheadedness, palpitations, abdominal pain. Pt denies any jaw claudication or diaphoresis. Vital Signs Temperature 98.2 F 04/25/19 13:40 Pulse Rate 79 04/25/19 13:40 Respiratory Rate 18 04/25/19 13:40 Blood Pressure 131/69 04/25/19 13:40 O2 Sat by Pulse Oximetry (%) 98 04/22/19 14:11 PE: Gen: NAD, awake, alert, laying in bed HEENT: NC/AT, LOUIE, MMM Neck: No JVD Lungs: CTA b/l without any wheezes. On RA without accessory muscle use CHEST: Reproducible cheat pain over L chest wall upon palpation CARD: RRR no murmurs apprecited ABD: Soft, NT/ND, normoactive BS EXT: No edema : Mendoza noted Neuro: Nonfocal exam. Strength 5/5 throughout. Sensation grossly intact CBC, BMP 04/24/19 08:03 04/24/19 08:03 Hepatic Panel Total Bilirubin 0.2 mg/dL (0.2-1) 04/24/19 08:03 AST 25 U/L (15-37) 04/24/19 08:03 ALT 26 U/L (13-61) 04/24/19 08:03 Alkaline Phosphatase 72 U/L (45-117) 04/24/19 08:03 Albumin 3.0 g/dl (3.4-5.0) L 04/24/19 08:03 Active Medications Acetaminophen (Tylenol -) 650 mg PO Q4H PRN PRN Reason: PAIN LEVEL 1-5 Last Admin: 04/24/19 23:10 Dose: 650 mg Albuterol Sulfate (Ventolin Hfa Inhaler -) 2 puff IH Q4H PRN PRN Reason: ASTHMA Amlodipine Besylate (Norvasc -) 10 mg PO DAILY [facility] Last Admin: 04/25/19 10:15 Dose: 10 mg Aripiprazole (Abilify) 5 mg PO HS [facility] Last Admin: 04/24/19 21:43 Dose: 5 mg Atorvastatin Calcium (Lipitor -) 20 mg PO HS [facility] Last Admin: 04/24/19 21:43 Dose: 20 mg Bethanechol Chloride (Urecholine -) 10 mg PO TID [facility] Last Admin: 04/25/19 15:25 Dose: 10 mg Budesonide/Formoterol Fumarate (Symbicort 80/4.5mcg -) 1 puff IH BID [facility] Last Admin: 04/25/19 10:15 Dose: 1 puff Carbamazepine (Tegretol -) 300 mg PO HS [facility] Last Admin: 04/24/19 21:45 Dose: 300 mg Clonidine (Catapres -) 0.2 mg PO BID [facility] Last Admin: 04/25/19 10:15 Dose: 0.2 mg Docusate Sodium (Colace -) 100 mg PO BID PRN PRN Reason: CONSTIPATION Doxepin HCl 150 mg/ Doxepin (HCl 25 mg) [address] [facility] Last Admin: 04/24/19 21:44 Dose: 175 mg Ferrous Sulfate (Feosol -) 325 mg PO DAILY [facility] Last Admin: 04/25/19 15:24 Dose: 325 mg Heparin Sodium (Porcine) (Heparin -) 5,000 unit SQ BID [facility] Last Admin: 04/25/19 10:15 Dose: Not Given Lorazepam (Ativan -) 4 mg PO TID PRN PRN Reason: ANXIETY Last Admin: 04/25/19 15:24 Dose: 4 mg Polyethylene Glycol (Miralax (For Daily Use) -) 17 gm PO DAILY PRN PRN Reason: CONSTIPATION Senna (Senna -) 2 tab PO HS PRN PRN Reason: CONSTIPATION Tamsulosin HCl (Flomax -) 0.[address] [facility] Last Admin: 04/24/19 21:43 Dose: 0.4 mg A/P Acute metabolic encephalopathy 2/2 to polypharmacy vs. psychotic process Atypical chest pain likely MSK-related Bipolar with danette and psychosis Atrial fibrillation (controlled; not on AC 2/2 to refusal) ADHD HTN HLD Microcytic anemia --ECG ordered; NSR without any ARIELA/STD, QTc 411ms --Trop pending however low suspicion for ACS --Pt to transfer to [place] for psychiatric inpatient care as recommended by psychiatry and neurology --Discontinue mendoza and ToV to ascertain post-void bladder residuals --H/H stable with high RDW suggesting iron-deficiency anemia --Started iron supplementation (325mg qdaily) and Miralax qdaily PRN and Senna 2 tab HS PRN for constipation --Continue psychiatric medications as above (Ativan/Doxepin/Adderall) --Norvasc 10mg qdaily PO to continue --Clonidine 0.2mg BID PO to continue; however recommend long-term wean off medication --Continue seizure medication: Carbamazepine 300mg HS PO FEN: Fluids: Can discontinue IVF and PO only Electrolyte abnormalities: None Nutrition: Regular diet PPX: DVT - Heparin TID SQ Dispo: Once voiding trial is passed pt is medically optimized to continue psychiatric care at [facility] Case discussed with Dr. Marquise Boston, DO - IM PGy-3
[2019-04-25] MEDS: DOXEPIN HCL PO SCH (21:26)
[2019-04-25] MEDS: TAMSULOSIN HCL 0.4 MG CAP PO SCH (21:27)
[2019-04-25] MEDS: ARIPiprazole 5 MG TABLET (FP) PO SCH (21:28)
[2019-04-25] MEDS: ATORVASTATIN CA 20 MG TABLET (FP) PO SCH (21:28)
[2019-04-25] MEDS: carBAMazepine 100 MG TAB.CHEW PO SCH (21:28)
[2019-04-25] MEDS: ACETAMINOPHEN 325 MG TABLET (FP) PO PRN (21:29)
[2019-04-26] MEDS: BETHANECHOL CHLORIDE 10 MG TABLET PO SCH ×3 (06:26→21:38)
[2019-04-26 08:23] LABS: HEMATOCRIT 28.9 % (35.4-49); HEMOGLOBIN 8.7 GM/dL (11.7-16.9); MCH 20.2 pg (25.7-33.7); MCHC 30.2 g/dl (32.0-35.9); MEAN CELL VOLUME 67.1 fl (80-96); MEAN PLT VOLUME 8.3 fl (7.5-11.1); PLATELET COUNT 300 K/MM3 (134-434); RBC 4.32 M/mm3 (4.00-5.60); RDW 17.1 % (11.9-15.9); WHITE BLOOD COUNT 8.7 K/mm3 (4.0-10.0)
[2019-04-26 08:43] LABS: BLOOD UREA NITROGEN 11.4 mg/dL (7-18); CALCIUM 8.6 mg/dL (8.5-10.1); CREATININE 0.9 mg/dL (0.55-1.3); POTASSIUM 4.1 mmol/L (3.5-5.1)
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
[2019-04-26] MEDS: FERROUS SO4 325 MG TABLET (FP) PO SCH (10:39)
[2019-04-26] MEDS: BUDESONIDE/FORMETEROL FUMARATE 80/4.5 mcg INHALER IH SCH ×2 (10:39→21:47)
[2019-04-26] MEDS: HEPARIN NA (PORCINE) 5,000 UNITS/ML 1ML VIAL SQ SCH ×3 (10:39→21:39)
[2019-04-26] MEDS: amLODIPine BESYLATE 10 MG TABLET (FP) PO SCH (10:39)
[2019-04-26] MEDS: cloNIDine HCL 0.1 MG TABLET PO SCH ×2 (10:39→21:38)
[2019-04-26] MEDS: LORazepam 1 MG TABLET PO PRN ×2 (11:11→21:47)
--- NOTE | 2019-04-26 12:54 | PN ---
Progress Note (short form) - Note Progress Note: HPI: No acute events noted overnight. Pt slightly anxious today. No chest pain or palpitations today. Vital Signs Temperature 97.9 F 04/26/19 07:10 Pulse Rate 71 04/26/19 07:10 Respiratory Rate 17 04/26/19 07:10 Blood Pressure 139/75 04/26/19 07:10 O2 Sat by Pulse Oximetry (%) 98 04/22/19 14:11 PE: Gen: NAD, awake, alert, laying in bed HEENT: NC/AT, LOUIE, MMM Neck: No JVD Lungs: CTA b/l without any wheezes. On RA without accessory muscle use CARD: RRR no murmurs apprecited ABD: Soft, NT/ND, normoactive BS EXT: No edema Neuro: Nonfocal exam. Strength 5/5 throughout. Sensation grossly intact CBC, BMP 04/26/19 07:40 04/26/19 07:40 Hepatic Panel Total Bilirubin 0.2 mg/dL (0.2-1) 04/24/19 08:03 AST 25 U/L (15-37) 04/24/19 08:03 ALT 26 U/L (13-61) 04/24/19 08:03 Alkaline Phosphatase 72 U/L (45-117) 04/24/19 08:03 Albumin 3.0 g/dl (3.4-5.0) L 04/24/19 08:03 Active Medications Acetaminophen (Tylenol -) 650 mg PO Q4H PRN PRN Reason: PAIN LEVEL 1-5 Last Admin: 04/25/19 21:29 Dose: 650 mg Albuterol Sulfate (Ventolin Hfa Inhaler -) 2 puff IH Q4H PRN PRN Reason: ASTHMA Amlodipine Besylate (Norvasc -) 10 mg PO DAILY [facility] Last Admin: 04/26/19 10:39 Dose: 10 mg Aripiprazole (Abilify) 5 mg PO HS [facility] Last Admin: 04/25/19 21:28 Dose: 5 mg Atorvastatin Calcium (Lipitor -) 20 mg PO HS [facility] Last Admin: 04/25/19 21:28 Dose: 20 mg Bethanechol Chloride (Urecholine -) 10 mg PO TID [facility] Last Admin: 04/26/19 06:26 Dose: 10 mg Budesonide/Formoterol Fumarate (Symbicort 80/4.5mcg -) 1 puff IH BID [facility] Last Admin: 04/26/19 10:39 Dose: 1 puff Carbamazepine (Tegretol -) 300 mg PO HS [facility] Last Admin: 04/25/19 21:28 Dose: 300 mg Clonidine (Catapres -) 0.2 mg PO BID [facility] Last Admin: 04/26/19 10:39 Dose: 0.2 mg Docusate Sodium (Colace -) 100 mg PO BID PRN PRN Reason: CONSTIPATION Doxepin HCl 150 mg/ Doxepin (HCl 25 mg) 175 mg PO HS [facility] Last Admin: 04/25/19 21:26 Dose: 175 mg Ferrous Sulfate (Feosol -) 325 mg PO DAILY [facility] Last Admin: 04/26/19 10:39 Dose: 325 mg Heparin Sodium (Porcine) (Heparin -) 5,000 unit SQ BID [facility] Last Admin: 04/26/19 10:43 Dose: Not Given Lorazepam (Ativan -) 4 mg PO TID PRN PRN Reason: ANXIETY Last Admin: 04/26/19 11:11 Dose: 4 mg Polyethylene Glycol (Miralax (For Daily Use) -) 17 gm PO DAILY PRN PRN Reason: CONSTIPATION Senna (Senna -) 2 tab PO HS PRN PRN Reason: CONSTIPATION Tamsulosin HCl (Flomax -) 0.4 mg PO HS [facility] Last Admin: 04/25/19 21:27 Dose: 0.4 mg A/P Acute metabolic encephalopathy 2/2 to polypharmacy vs. psychotic process Atypical chest pain likely MSK-related Bipolar with danette and psychosis Atrial fibrillation (controlled; not on AC 2/2 to refusal) ADHD HTN HLD Microcytic anemia --Pt to transfer to psychiatric inpatient care as recommended by psychiatry and neurology --H/H stable with high RDW suggesting iron-deficiency anemia --Started iron supplementation (325mg qdaily) and Miralax qdaily PRN and Senna 2 tab HS PRN for constipation --Continue psychiatric medications as above (Ativan/Doxepin/Adderall) --Norvasc 10mg qdaily PO to continue --Clonidine 0.2mg BID PO to continue; however recommend long-term wean off medication --Continue seizure medication: Carbamazepine 300mg HS PO FEN: Fluids: PO Electrolyte abnormalities: None Nutrition: Regular diet Dispo: medically optimized to continue psychiatric care Case discussed with Dr. Marquise Boston, DO - IM PGy-3
--- NOTE | 2019-04-26 16:21 | PN ---
Progress Note, Physician History of Present Illness: no new issues, 1:1 , awaiting transfer - Current Medication List Current Medications: Active Medications Acetaminophen (Tylenol -) 650 mg PO Q4H PRN PRN Reason: PAIN LEVEL 1-5 Last Admin: 04/25/19 21:29 Dose: 650 mg Albuterol Sulfate (Ventolin Hfa Inhaler -) 2 puff IH Q4H PRN PRN Reason: ASTHMA Amlodipine Besylate (Norvasc -) 10 mg PO DAILY [facility] Last Admin: 04/26/19 10:39 Dose: 10 mg Aripiprazole (Abilify) 5 mg PO [facility] Last Admin: 04/25/19 21:28 Dose: 5 mg Atorvastatin Calcium (Lipitor -) 20 mg PO [facility] Last Admin: 04/25/19 21:28 Dose: 20 mg Bethanechol Chloride (Urecholine -) 10 mg PO TID [facility] Last Admin: 04/26/19 06:26 Dose: 10 mg Budesonide/Formoterol Fumarate (Symbicort 80/4.5mcg -) 1 puff IH BID [facility] Last Admin: 04/26/19 10:39 Dose: 1 puff Carbamazepine (Tegretol -) 300 mg PO [facility] Last Admin: 04/25/19 21:28 Dose: 300 mg Clonidine (Catapres -) 0.2 mg PO BID [facility] Last Admin: 04/26/19 10:39 Dose: 0.2 mg Docusate Sodium (Colace -) 100 mg PO BID PRN PRN Reason: CONSTIPATION Doxepin HCl 150 mg/ Doxepin (HCl 25 mg) 175 mg PO [facility] Last Admin: 04/25/19 21:26 Dose: 175 mg Ferrous Sulfate (Feosol -) 325 mg PO DAILY [facility] Last Admin: 04/26/19 10:39 Dose: 325 mg Heparin Sodium (Porcine) (Heparin -) 5,000 unit SQ BID [facility] Last Admin: 04/26/19 10:43 Dose: Not Given Lorazepam (Ativan -) 4 mg PO TID PRN PRN Reason: ANXIETY Last Admin: 04/26/19 11:11 Dose: 4 mg Polyethylene Glycol (Miralax (For Daily Use) -) 17 gm PO DAILY PRN PRN Reason: CONSTIPATION Senna (Senna -) 2 tab PO HS PRN PRN Reason: CONSTIPATION Tamsulosin HCl (Flomax -) 0.4 mg PO HS [facility] Last Admin: 04/25/19 21:27 Dose: 0.4 mg - Objective Vital Signs: Vital Signs Temperature 98.6 F 04/26/19 14:50 Pulse Rate 78 04/26/19 14:50 Respiratory Rate 18 04/26/19 14:50 Blood Pressure 126/60 04/26/19 14:50 O2 Sat by Pulse Oximetry (%) 98 04/22/19 14:11 Labs: CBC, BMP 04/26/19 07:40 04/26/19 07:40 INR, PTT INR 1.19 (0.83-1.09) H 04/23/19 07:58 Problem List - Problems (2) Altered mental status Code(s): R41.82 - ALTERED MENTAL STATUS, UNSPECIFIED Qualifiers: Altered mental status type: unspecified Qualified Code(s): R41.82 - Altered mental status, unspecified Assessment/Plan Bipolar with mixed danette , delusions, + agitation awaiting transfer to PSYCH facility neurologically stable DR KIRBY
[2019-04-26] MEDS ORDERED: PT OWN MED DRAWER 7, Y5N ONE ×2 (17:37→21:36)
[2019-04-26] MEDS ORDERED: ARIPiprazole 5 MG TABLET (FP) ONE (21:36)
[2019-04-26] MEDS: TAMSULOSIN HCL 0.4 MG CAP PO SCH (21:38)
[2019-04-26] MEDS: carBAMazepine 100 MG TAB.CHEW PO SCH (21:39)
[2019-04-26] MEDS: ARIPiprazole 10 MG TABLET PO SCH (21:39)
[2019-04-26] MEDS: DOXEPIN HCL PO SCH (21:40)
[2019-04-26] MEDS: ATORVASTATIN CA 20 MG TABLET (FP) PO SCH (21:51)
[2019-04-27] MEDS ORDERED: MELATONIN 1 MG TABLET PO SCH (03:15)
[2019-04-27] MEDS ORDERED: PT OWN MED DRAWER 7, Y5N ONE ×2 (05:36→21:50)
[2019-04-27] MEDS: BETHANECHOL CHLORIDE 10 MG TABLET PO SCH ×3 (05:56→21:53)
[2019-04-27 07:35] LABS: HEMATOCRIT 28.9 % (35.4-49); HEMOGLOBIN 8.6 GM/dL (11.7-16.9); MCHC 29.7 g/dl (32.0-35.9); MEAN PLT VOLUME 8.5 fl (7.5-11.1); PLATELET COUNT 288 K/MM3 (134-434); RBC 4.31 M/mm3 (4.00-5.60); RDW 17.1 % (11.9-15.9); WHITE BLOOD COUNT 11.6 K/mm3 (4.0-10.0)
[2019-04-27] MEDS ORDERED: LORazepam 0.5 MG TABLET ONE (08:09)
[2019-04-27] MEDS: LORazepam 1 MG TABLET PO PRN ×2 (08:15→21:53)
[2019-04-27 08:27] LABS: MCH 19.9 pg (25.7-33.7)
[2019-04-27] MEDS: FERROUS SO4 325 MG TABLET (FP) PO SCH (09:20)
[2019-04-27] MEDS: HEPARIN NA (PORCINE) 5,000 UNITS/ML 1ML VIAL SQ SCH ×2 (09:20→21:54)
[2019-04-27] MEDS: amLODIPine BESYLATE 10 MG TABLET (FP) PO SCH (09:20)
[2019-04-27] MEDS: cloNIDine HCL 0.1 MG TABLET PO SCH ×2 (09:20→21:53)
[2019-04-27] MEDS: BUDESONIDE/FORMETEROL FUMARATE 80/4.5 mcg INHALER IH SCH ×2 (09:21→21:55)
--- NOTE | 2019-04-27 11:43 | PN ---
Progress Note, Physician History of Present Illness: pt awake, conversive, appears more stable, spoke to sister who lives in [place] tried calling , she was NA wa able to walk with assist - Current Medication List Current Medications: Active Medications Acetaminophen (Tylenol -) 650 mg PO Q4H PRN PRN Reason: PAIN LEVEL 1-5 Last Admin: 04/25/19 21:29 Dose: 650 mg Albuterol Sulfate (Ventolin Hfa Inhaler -) 2 puff IH Q4H PRN PRN Reason: ASTHMA Amlodipine Besylate (Norvasc -) 10 mg PO DAILY [facility] Last Admin: 04/27/19 09:20 Dose: 10 mg Aripiprazole (Abilify) 10 mg PO [facility] Last Admin: 04/26/19 21:39 Dose: 10 mg Atorvastatin Calcium (Lipitor -) 20 mg PO [facility] Last Admin: 04/26/19 21:51 Dose: 20 mg Bethanechol Chloride (Urecholine -) 10 mg PO TID [facility] Last Admin: 04/27/19 05:56 Dose: 10 mg Budesonide/Formoterol Fumarate (Symbicort 80/4.5mcg -) 1 puff IH BID [facility] Last Admin: 04/27/19 09:21 Dose: 1 puff Carbamazepine (Tegretol -) 300 mg PO [facility] Last Admin: 04/26/19 21:39 Dose: 300 mg Clonidine (Catapres -) 0.2 mg PO BID [facility] Last Admin: 04/27/19 09:20 Dose: 0.2 mg Docusate Sodium (Colace -) 100 mg PO BID PRN PRN Reason: CONSTIPATION Doxepin HCl 150 mg/ Doxepin (HCl 25 mg) 175 mg PO [facility] Last Admin: 04/26/19 21:40 Dose: 175 mg Ferrous Sulfate (Feosol -) 325 mg PO DAILY [facility] Last Admin: 04/27/19 09:20 Dose: 325 mg Heparin Sodium (Porcine) (Heparin -) 5,000 unit SQ BID [facility] Last Admin: 04/27/19 09:20 Dose: Not Given Lorazepam (Ativan -) 4 mg PO TID PRN PRN Reason: ANXIETY Last Admin: 04/27/19 08:15 Dose: 4 mg Polyethylene Glycol (Miralax (For Daily Use) -) 17 gm PO DAILY PRN PRN Reason: CONSTIPATION Senna (Senna -) 2 tab PO HS PRN PRN Reason: CONSTIPATION Tamsulosin HCl (Flomax -) 0.4 mg PO HS [facility] Last Admin: 04/26/19 21:38 Dose: 0.4 mg - Objective Vital Signs: Vital Signs Temperature 98.4 F 04/27/19 06:08 Pulse Rate 71 04/27/19 06:08 Respiratory Rate 20 04/27/19 06:08 Blood Pressure 112/72 04/27/19 06:08 O2 Sat by Pulse Oximetry (%) 98 04/22/19 14:11 Labs: CBC, BMP 04/27/19 07:10 04/26/19 07:40 INR, PTT INR 1.19 (0.83-1.09) H 04/23/19 07:58 Problem List - Problems (2) Altered mental status Code(s): R41.82 - ALTERED MENTAL STATUS, UNSPECIFIED Qualifiers: Altered mental status type: unspecified Qualified Code(s): R41.82 - Altered mental status, unspecified Assessment/Plan Mixed Bipolar with danette, appaers more stable, though ideally needs assistance and supervision, is currently hospitalized, so will need to coordinate outpt care if will not be transferred called today--RAISSA KIRBY
--- NOTE | 2019-04-27 19:39 | PN ---
Teaching Attending Note Name of Resident: Jamshid Boston ATTENDING PHYSICIAN STATEMENT I saw and evaluated the patient. I reviewed the resident's note and discussed the case with the resident. I agree with the resident's findings and plan as documented. SUBJECTIVE: Pending placement in psych facility; no events overnight. He will not require adderall as inquired by nursing as this will worsen his psychiatric symptoms with likely psychosis and overall will defer to psych as pending xfer 10 sys ROS done and negative aside from HPI PMH, PSH, FH, SH reviewed All prior diagnostics, etc. reviewed alongside consults OBJECTIVE: VS, labs, imaging reviewed NAD, AAO, resting in bed RRR s1/2 Was sleeping when I came back, in AM more interactive, poor insight No FND, CN exam wnl ASSESSMENT AND PLAN: Continues to pend psychiatric transfer. Continue current medications, continue 1:1. N deleterious effects of current meds noted. Please see resident note for full discussion and problem list; agree with findings and personally verified all historical and PE findings.
--- NOTE | 2019-04-27 19:50 | PN ---
Progress Note (short form) - Note Progress Note: HPI: No acute events noted overnight. Did not sleep well and wants adderall to help sleep. Melatonin did not do anything he reports. Vital Signs Temperature 99.0 F 04/27/19 14:53 Pulse Rate 71 04/27/19 14:53 Respiratory Rate 20 04/27/19 14:53 Blood Pressure 109/55 L 04/27/19 14:53 O2 Sat by Pulse Oximetry (%) 98 04/22/19 14:11 PE: Gen: NAD, awake, alert, laying in bed HEENT: NC/AT, LOUIE, MMM Neck: No JVD Lungs: CTA b/l without any wheezes. On RA without accessory muscle use CARD: RRR no murmurs apprecited ABD: Soft, NT/ND, normoactive BS EXT: No edema Neuro: Nonfocal exam. Strength 5/5 throughout. Sensation grossly intact PSYCH: Anxious, restless, unfocused CBC, BMP 04/27/19 07:10 04/26/19 07:40 Active Medications Acetaminophen (Tylenol -) 650 mg PO Q4H PRN PRN Reason: PAIN LEVEL 1-5 Last Admin: 04/25/19 21:29 Dose: 650 mg Albuterol Sulfate (Ventolin Hfa Inhaler -) 2 puff IH Q4H PRN PRN Reason: ASTHMA Amlodipine Besylate (Norvasc -) 10 mg PO DAILY [facility] Last Admin: 04/27/19 09:20 Dose: 10 mg Aripiprazole (Abilify) 10 mg PO HS [facility] Last Admin: 04/26/19 21:39 Dose: 10 mg Atorvastatin Calcium (Lipitor -) 20 mg PO HS [facility] Last Admin: 04/26/19 21:51 Dose: 20 mg Bethanechol Chloride (Urecholine -) 10 mg PO TID [facility] Last Admin: 04/27/19 13:55 Dose: 10 mg Budesonide/Formoterol Fumarate (Symbicort 80/4.5mcg -) 1 puff IH BID [facility] Last Admin: 04/27/19 09:21 Dose: 1 puff Carbamazepine (Tegretol -) 300 mg PO HS [facility] Last Admin: 04/26/19 21:39 Dose: 300 mg Clonidine (Catapres -) 0.2 mg PO BID [facility] Last Admin: 04/27/19 09:20 Dose: 0.2 mg Docusate Sodium (Colace -) 100 mg PO BID PRN PRN Reason: CONSTIPATION Doxepin HCl 150 mg/ Doxepin (HCl 25 mg) 175 mg PO HS [facility] Last Admin: 04/26/19 21:40 Dose: 175 mg Ferrous Sulfate (Feosol -) 325 mg PO DAILY [facility] Last Admin: 04/27/19 09:20 Dose: 325 mg Heparin Sodium (Porcine) (Heparin -) 5,000 unit SQ BID [facility] Last Admin: 04/27/19 09:20 Dose: Not Given Lorazepam (Ativan -) 4 mg PO TID PRN PRN Reason: ANXIETY Last Admin: 04/27/19 08:15 Dose: 4 mg Polyethylene Glycol (Miralax (For Daily Use) -) 17 gm PO DAILY PRN PRN Reason: CONSTIPATION Senna (Senna -) 2 tab PO HS PRN PRN Reason: CONSTIPATION Tamsulosin HCl (Flomax -) 0.4 mg PO HS [facility] Last Admin: 04/26/19 21:38 Dose: 0.4 mg A/P Acute metabolic encephalopathy 2/2 to polypharmacy vs. psychotic process Atypical chest pain likely MSK-related Bipolar with danette and psychosis Atrial fibrillation (controlled; not on AC 2/2 to refusal) ADHD HTN HLD Microcytic anemia --Explained to patient that he cannot receive adderall as this will worsen his bipolar disease and make him even more restless --Pt to transfer to psychiatric inpatient care as recommended by psychiatry and neurology --H/H stable with high RDW suggesting iron-deficiency anemia --Continue iron supplementation (325mg qdaily) and Miralax qdaily PRN and Senna 2 tab HS PRN for constipation --Continue psychiatric medications as above (Ativan/Doxepin/Adderall) --Norvasc 10mg qdaily PO to continue --Clonidine 0.2mg BID PO to continue; however recommend long-term wean off medication --Continue seizure medication: Carbamazepine 300mg HS PO FEN: Fluids: PO Electrolyte abnormalities: None Nutrition: Regular diet Dispo: medically optimized to continue psychiatric care Case discussed with Dr. Rosanne Boston, DO - IM PGy-3
[2019-04-27] MEDS ORDERED: ARIPiprazole 5 MG TABLET (FP) ONE (21:50)
[2019-04-27] MEDS: carBAMazepine 100 MG TAB.CHEW PO SCH (21:53)
[2019-04-27] MEDS: ATORVASTATIN CA 20 MG TABLET (FP) PO SCH (21:53)
[2019-04-27] MEDS: TAMSULOSIN HCL 0.4 MG CAP PO SCH (21:53)
[2019-04-27] MEDS: ARIPiprazole 10 MG TABLET PO SCH (21:54)
[2019-04-27] MEDS: DOXEPIN HCL PO SCH (21:54)
[2019-04-28] MEDS ORDERED: PT OWN MED DRAWER 7, Y5N ONE (05:49)
[2019-04-28] MEDS: BETHANECHOL CHLORIDE 10 MG TABLET PO SCH (06:04)
[2019-04-28 09:08] VITALS: BP 133/51; PULSE 76; TEMP 97.7
[2019-04-28] MEDS: FERROUS SO4 325 MG TABLET (FP) PO SCH (09:11)
[2019-04-28] MEDS: amLODIPine BESYLATE 10 MG TABLET (FP) PO SCH (09:11)
[2019-04-28] MEDS: cloNIDine HCL 0.1 MG TABLET PO SCH (09:11)
[2019-04-28] MEDS: HEPARIN NA (PORCINE) 5,000 UNITS/ML 1ML VIAL SQ SCH (09:11)
[2019-04-28] MEDS: BUDESONIDE/FORMETEROL FUMARATE 80/4.5 mcg INHALER IH SCH (09:13)
[2019-04-28] MEDS ORDERED: HEPARIN NA (PORCINE) 5,000 UNITS/ML 1ML VIAL ONE (09:27)
--- NOTE | 2019-04-28 12:11 | PN ---
Mental Health Exam - Mental Status Exam Alert and Oriented to: Time, Place, Person Cognitive Function: Grossly Intact Patient Appearance: Well Groomed Mood: Anxious, Hopeful, Happy Affect: Appropriate Patient Behavior: Cooperative Speech Pattern: Clear Voice Loudness: Normal Thought Process: Intact Hallucinations: None Suicidal Ideation: None Homicidal Ideation: None Insight/Judgement: Good Sleep: Well Appetite: Good (eating full lunch cdurrently. ) Muscle strength/Tone: Normal Gait/Station: Ataxic (Client met at bedside. Spoke with Dr Duong, who have evaluated client on previous occassions. Client is in good behavioural control, improved insight.Client is adherent with treatment regieme. Family will assist in the community.) Additional Comments: Dx Bipolar disorder in remission, stable. Plan. Discharge home,. May Follow up with own therapist and MD Trejo. Continue current medications. denies SI, HI ,AH or VH. he is cleared psychiatric to be returned home. Spoke with staff on the floor.
--- NOTE | 2019-04-28 12:22 | DS ---
Physical Exam: SUBJECTIVE: Pt calmer today. Pt seen sleeping in bed, but wonders when he can go home. OBJECTIVE: Vital Signs Period Temp Pulse Resp BP Sys/Walter Pulse Ox Last 24 Hr 97.7 F-99.0 F 61-76 17-20 109-133/48-55 PHYSICAL EXAM PE: Gen: NAD, awake, alert, laying in bed HEENT: NC/AT, LOUIE, MMM Neck: No JVD Lungs: CTA b/l without any wheezes. On RA without accessory muscle use CARD: RRR no murmurs apprecited ABD: Soft, NT/ND, normoactive BS EXT: No edema PSYCH: focused today, minimal anxiety LABS CBC, BMP 04/27/19 07:10 04/26/19 07:40 Microbiology 04/22/19 16:34 Urine - Urine Gomez Urine Culture - Final Normal Urogenital Sera Active Medications Acetaminophen (Tylenol -) 650 mg PO Q4H PRN PRN Reason: PAIN LEVEL 1-5 Last Admin: 04/25/19 21:29 Dose: 650 mg Albuterol Sulfate (Ventolin Hfa Inhaler -) 2 puff IH Q4H PRN PRN Reason: ASTHMA Amlodipine Besylate (Norvasc -) 10 mg PO DAILY [facility] Last Admin: 04/28/19 09:11 Dose: 10 mg Aripiprazole (Abilify) 10 mg PO [facility] Last Admin: 04/27/19 21:54 Dose: 10 mg Atorvastatin Calcium (Lipitor -) 20 mg PO HS [facility] Last Admin: 04/27/19 21:53 Dose: 20 mg Bethanechol Chloride (Urecholine -) 10 mg PO TID [facility] Last Admin: 04/28/19 06:04 Dose: 10 mg Budesonide/Formoterol Fumarate (Symbicort 80/4.5mcg -) 1 puff IH BID [facility] Last Admin: 04/28/19 09:13 Dose: 1 puff Carbamazepine (Tegretol -) 300 mg PO [facility] Last Admin: 04/27/19 21:53 Dose: 300 mg Clonidine (Catapres -) 0.2 mg PO BID [facility] Last Admin: 04/28/19 09:11 Dose: 0.2 mg Docusate Sodium (Colace -) 100 mg PO BID PRN PRN Reason: CONSTIPATION Doxepin HCl 150 mg/ Doxepin (HCl 25 mg) 175 mg PO HS [facility] Last Admin: 04/27/19 21:54 Dose: 175 mg Ferrous Sulfate (Feosol -) 325 mg PO DAILY [facility] Last Admin: 04/28/19 09:11 Dose: 325 mg Heparin Sodium (Porcine) (Heparin -) 5,000 unit SQ BID [facility] Last Admin: 04/28/19 09:11 Dose: Not Given Lorazepam (Ativan -) 4 mg PO TID PRN PRN Reason: ANXIETY Last Admin: 04/27/19 21:53 Dose: 3 mg Polyethylene Glycol (Miralax (For Daily Use) -) 17 gm PO DAILY PRN PRN Reason: CONSTIPATION Senna (Senna -) 2 tab PO HS PRN PRN Reason: CONSTIPATION Tamsulosin HCl (Flomax -) 0.4 mg PO HS [facility] Last Admin: 04/27/19 21:53 Dose: 0.4 mg HOSPITAL COURSE: Date of Admission:04/22/19 Date of Discharge: 04/28/19 Pt was admitted on 04/22/19 to the general medical floors due to altered status secondary to suspected polypharmacy. During his stay he was noted to be in a manic episode and evaluated by psychiatry who reported he needed to be treated at a psychiatric inpatient facility. In addition we increased his Abilify to 10mg qdaily and decreased his Clonidine to 0.2mg. Awaiting pt's transfer to inpatient psychiatry he remained manic, however for the past 2 days he was noted to be calmer with the increased medications. He was re-evaluated by psychiatry and was deemed fit to be discharged home and cleared from a psychiatric perspective. He is being discharged home in assistance with his family. He is to follow with his psychiatrist Dr. Trejo within 1 week and to continue Abilify 10mg qdaily and Ativan 4mg PRN for anxiety up to three times per day. Pt is being picked up by family today. Minutes to complete discharge: 35 <Jamshid Boston - Last Filed: 04/28/19 12:33> Physical Exam: SUBJECTIVE: Patient seen and examined OBJECTIVE: Vital Signs Period Temp Pulse Resp BP Sys/Walter Pulse Ox Last 24 Hr 97.7 F-98.0 F 61-76 20-20 117-133/51-54 PHYSICAL EXAM GENERAL: The patient is awake, alert, and fully oriented, in no acute distress. HEAD: Normal with no signs of trauma. EYES: PERRL, extraocular movements intact, sclera anicteric, conjunctiva clear. ENT: Ears normal, nares patent, oropharynx clear without exudates, moist mucous membranes. NECK: Trachea midline, full range of motion, supple. LUNGS: Breath sounds equal, clear to auscultation bilaterally, no wheezes, no crackles, no accessory muscle use. HEART: Regular rate and rhythm, S1, S2 without murmur, rub or gallop. ABDOMEN: Soft, nontender, nondistended, normoactive bowel sounds, no guarding, no rebound, no hepatosplenomegaly, no masses. EXTREMITIES: 2+ pulses, warm, well-perfused, no edema. NEUROLOGICAL: Cranial nerves II through XII grossly intact. Normal speech, gait not observed. PSYCH: Normal mood, normal affect. SKIN: Warm, dry, normal turgor, no rashes or lesions noted. LABS HOSPITAL COURSE: Date of Admission:04/22/19 Date of Discharge: 04/29/19 Seen and examined; no SI/HI. Spoke with him at length prior to DC. Limited but improved insight. Will be able to be DC home. Cleared with psychiatry. Discussed with CM. FOLLOWUP WITH [facility] 3-[address] Trejo (psych) <Cayden Lay - Last Filed: 04/29/19 00:22> Discharge Summary Problems reviewed: Yes Reason For Visit: UTI Current Active Problems Altered mental status (Acute) Anemia (Acute) Bipolar 1 disorder, manic, moderate (Acute) Polypharmacy (Acute) UTI (urinary tract infection) (Acute) - Home Medications Comprehensive Discharge Medication List: Ambulatory Orders Amlodipine Besylate [Norvasc -] 10 mg PO DAILY 12/24/11 Lorazepam [Ativan] 4 mg PO TID PRN MDD 3 11/14/17 Budesonide/Formeterol Fumarate [SYMBICORT 80/4.5mcg -] 1 inh PO BID 01/21/19 Cariprazine HCl [Vraylar] 30 mg PO HS 04/23/19 Duloxetine HCl [Cymbalta] 20 mg PO DAILY 04/23/19 Aripiprazole [Abilify -] 10 mg PO HS tablet 04/27/19 Atorvastatin Ca [Lipitor] 20 mg PO HS tablet 04/27/19 Bethanechol Chloride [Bethanechol Chloride -] 10 mg PO TID tablet 04/27/19 Carbamazepine [Tegretol -] 300 mg PO HS tab.chew 04/27/19 Docusate Sodium [Colace -] 100 mg PO BID PRN capsule 04/27/19 Doxepin HCl [Sinequan -] 175 mg PO HS capsule 04/27/19 Ferrous Sulfate [Feosol] 325 mg PO DAILY ud 04/27/19 Polyethylene Glycol 3350 [Miralax 119 gm Btl -] 17 gm PO DAILY PRN bottle 04/27 Sennosides [Senna -] 2 tab PO HS PRN tablet 04/27/19 Tamsulosin HCl [Flomax -] 0.4 mg PO HS cap.er.24h 04/27/19 cloNIDine HCL [Catapres -] 0.2 mg PO BID tablet 04/27/19 <Jamshid Boston - Last Filed: 04/28/19 12:33> - Home Medications Comprehensive Discharge Medication List: Ambulatory Orders Amlodipine Besylate [Norvasc -] 10 mg PO DAILY 12/24/11 Lorazepam [Ativan] 4 mg PO TID PRN MDD 3 11/14/17 Budesonide/Formeterol Fumarate [SYMBICORT 80/4.5mcg -] 1 inh PO BID 01/21/19 Cariprazine HCl [Vraylar] 30 mg PO HS 04/23/19 Duloxetine HCl [Cymbalta] 20 mg PO DAILY 04/23/19 Aripiprazole [Abilify -] 10 mg PO HS tablet 04/27/19 Atorvastatin Ca [Lipitor] 20 mg PO HS tablet 04/27/19 Bethanechol Chloride [Bethanechol Chloride -] 10 mg PO TID tablet 04/27/19 Carbamazepine [Tegretol -] 300 mg PO HS tab.chew 04/27/19 Docusate Sodium [Colace -] 100 mg PO BID PRN capsule 04/27/19 Doxepin HCl [Sinequan -] 175 mg PO HS capsule 04/27/19 Ferrous Sulfate [Feosol] 325 mg PO DAILY ud 04/27/19 Polyethylene Glycol 3350 [Miralax 119 gm Btl -] 17 gm PO DAILY PRN bottle 04/27 Sennosides [Senna -] 2 tab PO HS PRN tablet 04/27/19 Tamsulosin HCl [Flomax -] 0.4 mg PO HS cap.er.24h 04/27/19 cloNIDine HCL [Catapres -] 0.2 mg PO BID tablet 04/27/19 <Cayden Lay - Last Filed: 04/29/19 00:22> Condition: Stable - Instructions Diet, Activity, Other Instructions: You were seen due to your danette episode from your bipolar disease. You were seen by psychiatry and had your Abilify increased. You were re-evaluated by psychiatry who approved of you to go home. MEDICATIONS: Please continue your psychiatric medications until further advised by your psychiatrist: We increasd your Abilify to 10mg nightly Ativan 4mg THREE TIME DAILY. Please do not drive or operate heavy machinery while taking these medications Carbamazepin 300mg nightly Continue the following home medications: Clonidine 0.2mg TWICE daily Doxepin 175mg nightly Iron 325mg daily Flomax 0.4mg nightly Lipitor 20mg nightly Norvasc 10mg daily Senna 2mg nightly FOLLOW-UP: Please follow-up with Dr. Lujan Please follow-up with Dr. Duong or your psychiatrist (Dr. Trejo) within 1 week Referrals: Alex Duong MD [Staff Physician] - Deacon Lujan MD [Staff Physician] - Disposition: HOME This patient is new to me today: No Emergency Visit: Yes ED Registration Date: 04/22/19 Care time: The patient presented to the Emergency Department on the above date and was hospitalized for further evaluation of their emergent condition. Critical Care patient: No - Discharge Referral Referred to [facility] Med P.C[facility] No <Jamshid Boston - Last Filed: 04/28/19 12:33> ATTENDING PHYSICIAN STATEMENT I saw and evaluated the patient. I reviewed the resident's note and discussed the case with the resident. I agree with the resident's findings and plan as documented. SUBJECTIVE: OBJECTIVE: ASSESSMENT AND PLAN: <Cayden Lay - Last Filed: 04/29/19 00:22>
== END 2019-04-28 13:09 | disposition home or self-care (01) | DRG 885 ==
LOC: JER 14:04 → JERBED 18:34 → J6S 20:19
PROVIDERS: ADMIT Internal Medicine; ATTEND Internal Medicine
DX: F31.60 Bipolar disorder, current episode mixed, unspecified (principal); G93.41 Metabolic encephalopathy; N39.0 Urinary tract infection, site not specified; R41.82 Altered mental status, unspecified; N40.0 Benign prostatic hyperplasia without lower urinary tract symptoms; E78.5 Hyperlipidemia, unspecified; I10 Essential (primary) hypertension; J44.9 Chronic obstructive pulmonary disease, unspecified; I48.91 Unspecified atrial fibrillation; F90.9 Attention-deficit hyperactivity disorder, unspecified type; F41.9 Anxiety disorder, unspecified; D64.9 Anemia, unspecified; T50.915A Adverse effect of multiple unspecified drugs, medicaments and biological substances, initial encounter; N40.1 Benign prostatic hyperplasia with lower urinary tract symptoms; R33.8 Other retention of urine; F22 Delusional disorders
CPT/HCPCS: 36415; 70450-TC; 71045-TC-FY; 76775-TC; 80048; 80053; 80307; 81003; 82550; 82553; 82728; 83540; 83550; 83605; 83735; 84100; 84443; 84484; 85025; 85027; 85044; 85610; 87086; 93005; 93010; 97116-GP; 97161-GP; 99283-25; J0735; J1644; J7030

== ENCOUNTER 2019-05-21 17:34 | Emergency (ER) | payer OTHER ==
[2019-05-21 17:49] VITALS: TEMP 98.6; BMI 28.0
--- NOTE | 2019-05-21 18:30 | PDOC ---
History of Present Illness - General Chief Complaint: Cold Symptoms Stated Complaint: PROD COUGH Time Seen by Provider: 05/21/19 17:37 Past History - Past Medical History Allergies/Adverse Reactions: Allergies Allergy/AdvReac Type Severity Reaction Status Date / Time alprazolam [From Xanax] AdvReac Intermediate Verified 05/21/19 17:35 gatifloxacin [From Tequin] AdvReac Intermediate DIARRHEA Verified 05/21/19 17:35 lamotrigine [From Lamictal] AdvReac Intermediate Verified 05/21/19 17:35 quetiapine fumarate AdvReac Intermediate DIZZINESS, Verified 05/21/19 17:35 [From Seroquel] NIGHTMARES zolpidem tartrate AdvReac Mild DEPRESSION, Verified 05/21/19 17:35 [From Ambien] DISORIENTED nickel AdvReac Verified 05/21/19 17:35 trazodone AdvReac Verified 05/21/19 17:35 Home Medications: Ambulatory Orders Amlodipine Besylate [Norvasc -] 10 mg PO DAILY 12/24/11 Lorazepam [Ativan] 4 mg PO TID PRN MDD 3 11/14/17 Budesonide/Formeterol Fumarate [SYMBICORT 80/4.5mcg -] 1 inh PO BID 01/21/19 Cariprazine HCl [Vraylar] 30 mg PO HS 04/23/19 Duloxetine HCl [Cymbalta] 20 mg PO DAILY 04/23/19 Aripiprazole [Abilify -] 10 mg PO HS tablet 04/27/19 Atorvastatin Ca [Lipitor] 20 mg PO HS tablet 04/27/19 Bethanechol Chloride [Bethanechol Chloride -] 10 mg PO TID tablet 04/27/19 Carbamazepine [Tegretol -] 300 mg PO HS tab.chew 04/27/19 Docusate Sodium [Colace -] 100 mg PO BID PRN capsule 04/27/19 Doxepin HCl [Sinequan -] 175 mg PO HS capsule 04/27/19 Ferrous Sulfate [Feosol] 325 mg PO DAILY ud 04/27/19 Polyethylene Glycol 3350 [Miralax 119 gm Btl -] 17 gm PO DAILY PRN bottle 04/27 Sennosides [Senna -] 2 tab PO HS PRN tablet 04/27/19 Tamsulosin HCl [Flomax -] 0.4 mg PO HS cap.er.24h 04/27/19 cloNIDine HCL [Catapres -] 0.2 mg PO BID tablet 04/27/19 Azithromycin [Zithromax 250mg Tablets -] 250 mg PO DAILY #4 tab 05/21/19 Anemia: No Asthma: Yes Cancer: No Cardiac Disorders: Yes (AFIB) CVA: No COPD: No CHF: No Dementia: No Diabetes: No GI Disorders: Yes (GERD) Disorders: No HTN: Yes Hypercholesterolemia: Yes Liver Disease: No Psychiatric Problems: Yes (ADD) Seizures: No Thyroid Disease: No - Surgical History Abdominal Surgery: No Appendectomy: No Cardiac Surgery: No Cholecystectomy: No Lung Surgery: No Neurologic Surgery: No Orthopedic Surgery: Yes (LT SHOULDER SX) - Immunization History Immunization Up to Date: Yes - Psycho Social/Smoking Cessation Hx Smoking Status: No Smoking History: Former smoker Have you smoked in the past 12 months: No Number of Cigarettes Smoked Daily: 0 If you are a former smoker, when did you quit?: [employer] Information on smoking cessation initiated: No 'Breaking Loose' booklet given: 06/07/16 Hx Alcohol Use: No Drug/Substance Use Hx: No Substance Use Type: None Hx Substance Use Treatment: No *Physical Exam - Vital Signs Last Vital Signs Temp Pulse Resp BP Pulse Ox 98.6 F 92 H 19 156/73 97 05/21/19 17:35 05/21/19 17:35 05/21/19 17:35 05/21/19 17:35 05/21/19 17:35 Discharge - Discharge Information Problems reviewed: Yes Clinical Impression/Diagnosis: COPD with acute bronchitis Condition: Stable Disposition: HOME - Admission No - Additional Discharge Information Prescriptions: Azithromycin [Zithromax 250mg Tablets -] 250 mg PO DAILY #4 tab - Follow up/Referral Referrals: Deacon Lujan MD [Primary Care Provider] - 2 Days - Patient Discharge Instructions Patient Printed Discharge Instructions: DI for Acute Bronchitis Additional Instructions: Rest, fluids, medication as directed Check flu test, results will be available later tonight or tomorrow, and obtain additional medication if positive Return to ER if there is high fever, increased shortness of breath, chest pain, or other serious symptoms that develop. Otherwise follow-up with Dr. Lujan in 2 days. - Post Discharge Activity
[2019-05-21] MEDS ORDERED: AZITHROMYCIN 250 MG TABLET PO ONE (19:24)
[2019-05-21] MEDS ORDERED: AZITHROMYCIN 250 MG TABLET ONE (19:28)
--- NOTE | 2019-05-21 19:36 | PDOC ---
*Physical Exam - Vital Signs Last Vital Signs Temp Pulse Resp BP Pulse Ox 98.6 F 92 H 18 156/73 97 05/21/19 17:35 05/21/19 17:35 05/21/19 18:56 05/21/19 17:35 05/21/19 17:35 ED Treatment Course - Medications Given in the ED: ED Medications Discontinued Medications Generic Name Dose Route Start Last Admin Trade Name Cheyanne PRN Reason Stop Dose Admin Azithromycin 500 mg 05/21/19 19:24 05/21/19 19:29 Zithromax - PO 05/21/19 19:25 500 mg ONCE ONE Administration ED Progress Note - Progress Note Progress Note: Influenza A and influenza B nasopharyngeal swab tests negative. Discharge - Discharge Information Problems reviewed: Yes Clinical Impression/Diagnosis: COPD with acute bronchitis Condition: Stable Disposition: HOME - Additional Discharge Information Prescriptions: Azithromycin 250 mg PO DAILY #4 tablet Azithromycin [Zithromax 250mg Tablets -] 250 mg PO DAILY #4 tab - Follow up/Referral Referrals: Deacon Lujan MD [Primary Care Provider] - 2 Days - Patient Discharge Instructions Patient Printed Discharge Instructions: DI for Acute Bronchitis Additional Instructions: Rest, fluids, medication as directed Check flu test, results will be available later tonight or tomorrow, and obtain additional medication if positive Return to ER if there is high fever, increased shortness of breath, chest pain, or other serious symptoms that develop. Otherwise follow-up with Dr. Lujan in 2 days. - Post Discharge Activity
== END 2019-05-21 19:36 | disposition home or self-care (01) ==
LOC: FER 17:34
DX: J44.9 Chronic obstructive pulmonary disease, unspecified (principal); J40 Bronchitis, not specified as acute or chronic; F98.8 Other specified behavioral and emotional disorders with onset usually occurring in childhood and adolescence; K21.9 Gastro-esophageal reflux disease without esophagitis; I10 Essential (primary) hypertension; E78.00 Pure hypercholesterolemia, unspecified; I48.91 Unspecified atrial fibrillation; Z87.891 Personal history of nicotine dependence; Z88.8 Allergy status to other drugs, medicaments and biological substances
CPT/HCPCS: 71046-TC-FY; 87804; 99282-25

== ENCOUNTER 2019-08-13 18:30 | Inpatient (IN) | payer OTHER, MEDICARE ==
[2019-08-13] MEDS ORDERED: ALBUTEROL SO4 2.5/IPRATROPIUM 0.5 INH SOL 3 ML VIAL.NEB. NEB ONE ×3 (18:47→20:38)
[2019-08-13] MEDS ORDERED: SODIUM CHLORIDE 1,000 ML IV STA (19:08)
[2019-08-13] MEDS ORDERED: AZITHROMYCIN IVPB 500 MG in DEXTROSE 5%-WATER - 250 ML IVPB ONE (19:09)
[2019-08-13] MEDS ORDERED: CEFTRIAXONE 1,000 MG in DEXTROSE 5%-WATER - 50 ML IVPB ONE (19:09)
--- NOTE | 2019-08-13 19:12 | PDOC ---
Documentation entered by Justin Rodarte SCRIBE, acting as scribe for Blake Motta MD. Blake Motta MD: This documentation has been prepared by the [employer] Andrys, SCRIBE, under my direction and personally reviewed by me in its entirety. I confirm that the documentation accurately reflects all work, treatment, procedures, and medical decision making performed by me. History of Present Illness - General Chief Complaint: Respiratory Stated Complaint: SOB, DIFF BREATHING, COUGH History Source: Patient, EMS Exam Limitations: No Limitations - History of Present Illness Initial Comments: 08/13/19 19:03 The patient is a 68 year old male with a significant past medical history of COPD, recurrent pneumonia, HTN and HLD who presents to the ED, via EMS, with fever and cough since last night. As per EMS, patient had a fever of 101F and a progressively worsening shortness of breath and cough since last night. Patient also reports wheezing associated with present symptoms. Patient took albuterol at home with no relief of present symptoms. Denies any other symptoms. 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 Denies tobacco, drug or alcohol use. Surgical hx: Orthopedic shoulder surgery, sinus surgery Physical exam: Patient is in acute respiratory distress with elevated respiratory rate, decreased oxygen saturation on room air, tachypnea and dyspnea. Fever. Mucous members are dry. Otherwise ENT clear PERRLA Neck supple without bruit mass or nodes Decreased breath sounds bilaterally, rales at both bases posteriorly, tachypneic and dyspneic. CV regular without murmur rub or gallop pulses full and symmetric no JVD or edema no bruits Abdomen soft nontender without mass organomegaly. Mildly distended but with normal bowel sounds Extremities no CCE No unusual rashes. Turgor is adequate. Neurological intact Impression: Cough, fever, underlying COPD, rule out pneumonia Plan: CBC and chemistries, blood cultures, lactic acid, venous blood gas, chest x-ray, EKG, empiric antibiotics and admission for further evaluation and treatment. Signed out to Dr. Dixon at 7 PM, pending results of laboratory studies. Antibiotics have been administered. Patient's breathing is much improved and respiratory rate has declined, oxygen saturation improved. Is this a multiple visit Asthma Patient?: No Past History - Past Medical History Allergies/Adverse Reactions: Allergies Allergy/AdvReac Type Severity Reaction Status Date / Time alprazolam [From Xanax] AdvReac Intermediate Verified 05/21/19 17:35 gatifloxacin [From Tequin] AdvReac Intermediate DIARRHEA Verified 05/21/19 17:35 lamotrigine [From Lamictal] AdvReac Intermediate Verified 05/21/19 17:35 quetiapine fumarate AdvReac Intermediate DIZZINESS, Verified 05/21/19 17:35 [From Seroquel] NIGHTMARES zolpidem tartrate AdvReac Mild DEPRESSION, Verified 05/21/19 17:35 [From Ambien] DISORIENTED nickel AdvReac Verified 05/21/19 17:35 trazodone AdvReac Verified 05/21/19 17:35 Home Medications: Ambulatory Orders Amlodipine Besylate [Norvasc -] 10 mg PO DAILY 12/24/11 Budesonide/Formeterol Fumarate [SYMBICORT 80/4.5mcg -] 1 inh PO BID 01/21/19 Sennosides [Senna -] 2 tab PO HS PRN tablet 04/27/19 Tamsulosin HCl [Flomax -] 0.4 mg PO HS cap.er.24h 04/27/19 Simvastatin 20 mg PO HS 08/13/19 Aspirin [Aspirin EC] 81 mg PO DAILY 08/14/19 Dextroamphetamine/Amphetamine [Adderall Xr 20 mg Capsule] 20 mg PO TID 08/14/19 Doxepin HCl [Sinequan -] 150 mg PO HS 08/14/19 LORazepam [Lorazepam] 2 mg PO TID 08/14/19 cloNIDine HCL [Catapres -] 0.3 mg PO BID 08/14/19 Anemia: No Asthma: Yes Cancer: No Cardiac Disorders: Yes (AFIB) CVA: No COPD: No CHF: No Dementia: No Diabetes: No GI Disorders: Yes (GERD) Disorders: No HTN: Yes Hypercholesterolemia: Yes Liver Disease: No Psychiatric Problems: Yes (ADD) Seizures: No Thyroid Disease: No - Surgical History Abdominal Surgery: No Appendectomy: No Cardiac Surgery: No Cholecystectomy: No Lung Surgery: No Neurologic Surgery: No Orthopedic Surgery: Yes (LT SHOULDER SX) - Immunization History Immunization Up to Date: Yes - Psycho Social/Smoking Cessation Hx Smoking Status: No Smoking History: Former smoker Have you smoked in the past 12 months: No Number of Cigarettes Smoked Daily: 0 If you are a former smoker, when did you quit?: [employer] 'Breaking Loose' booklet given: 06/07/16 Hx Alcohol Use: No Drug/Substance Use Hx: No Substance Use Type: None Hx Substance Use Treatment: No Review of Systems - Review of Systems Able to Perform ROS?: Yes Comments:: 08/13/19 19:04 CONSTITUTIONAL: + fever Absent: diaphoresis, generalized weakness, malaise, loss of appetite HEENT: Absent: rhinorrhea, nasal congestion, throat pain, throat swelling, difficulty swallowing, mouth swelling, ear pain, eye pain, visual Changes CARDIOVASCULAR: Absent: chest pain, syncope, palpitations, irregular heart rate, lightheadedness , peripheral edema RESPIRATORY: + cough, shortness of breath, wheezing Absent: dyspnea with exertion, orthopnea, stridor, hemoptysis GASTROINTESTINAL: Absent: abdominal pain, abdominal distension, nausea, vomiting, diarrhea, constipation, melena, hematochezia GENITOURINARY: Absent: dysuria, frequency, urgency, hesitancy, hematuria, flank pain, genital pain MUSCULOSKELETAL: Absent: myalgia, arthralgia, joint swelling SKIN: Absent: rash, itching, pallor HEMATOLOGIC/IMMUNOLOGIC: Absent: easy bleeding, easy bruising, lymphadenopathy, frequent infections ENDOCRINE: Absent: unexplained weight gain, unexplained weight loss, heat intolerance, cold intolerance NEUROLOGIC: Absent: headache, focal weakness or paresthesias, dizziness, unsteady gait, seizure, mental status changes, bladder or bowel incontinence PSYCHIATRIC: Absent: anxiety, depression, suicidal or homicidal ideation, hallucinations. All Other Systems: Reviewed and Negative *Physical Exam - Physical Exam 08/13/19 19:04 GENERAL: + lethargic but arousable. Alert and Oriented x 3. Cooperative HEENT: + dry mucous membranes/ Normocephalic, atraumatic. PERRLA, EOMI. No conjunctival pallor. Sclera are non- icteric. Oropharynx is clear. NECK: Supple. Full ROM. No JVD. Carotid pulses 2+ and symmetric, without bruits. No thyromegaly. No lymphadenopathy. CARDIOVASCULAR: + CV 2/6. systolic ejection murmur left sternal border. 100 per minute, regular. PULMONARY: + Decreased breath sounds bilaterally. Rales at the left base No wheezing or rhonchi. ABDOMINAL: + mildly distended. Soft. Non-tender. No rebound or guarding. No organomegaly. Normoactive bowel sounds. MUSCULOSKELETAL Normal range of motion at all joints. No bony deformities or tenderness. No CVA tenderness. EXTREMITIES: No cyanosis. No clubbing. No edema. No calf tenderness. SKIN: Warm and dry. Normal capillary refill. No rashes. No jaundice. NEUROLOGICAL: + generalized weakness. Alert, awake, appropriate. Cranial nerves 2-12 intact. No deficits to light touch and temperature in face, upper extremities and lower extremities. No motor deficits in the in face, upper extremities and lower extremities. Normoreflexic in the upper and lower extremities. Normal speech. Toes are down- going bilaterally. Gait is normal without ataxia. PSYCHIATRIC: Cooperative. Good eye contact. Appropriate mood and affect. ED Treatment Course - LABORATORY CBC & Chemistry Diagram: 08/16/19 07:00 08/17/19 07:20 - RADIOLOGY Radiology Studies Ordered: Category Date Time Status CHEST X-RAY PORTABLE* [RAD] Stat Radiology 08/13/19 18:40 Ordered Medical Decision Making - Medical Decision Making 08/13/19 18:41 Brought in by ambulance from home. Worsening shortness of breath today. Fever to 101 degrees. Received 2 DuoNeb treatments in the ambulance as well as 10 mg of Decadron IV. According to paramedics, much more respiratory distress initially, seemed to improve with treatment. 08/13/19 19:01 Chest x-ray with bibasilar infiltrates. Thinks rales at the left base with decreased breath sounds throughout. EKG normal sinus rhythm 93/min. Normal axes and intervals. Nonspecific ST-T wave changes, primarily in the inferolateral leads. No ST elevations. Discharge - Discharge Information Problems reviewed: Yes Clinical Impression/Diagnosis: COPD exacerbation Anemia Qualifiers: Anemia type: unspecified type Qualified Code(s): D64.9 - Anemia, unspecified Pneumonia Qualifiers: Pneumonia type: due to unspecified organism Laterality: unspecified laterality Lung location: unspecified part of lung Qualified Code(s): J18.9 - Pneumonia, unspecified organism Condition: Guarded - Admission Yes - Follow up/Referral - Patient Discharge Instructions - Post Discharge Activity
[2019-08-13] MEDS ORDERED: AZITHROMYCIN 500 MG VIAL IVPB ONE (19:15)
[2019-08-13] MEDS ORDERED: cefTRIAXone SODIUM 1 GM VIAL ONE (19:15)
[2019-08-13 19:21] LABS: BASO % 0.4 % (0-2.0); EOS % 1.9 % (0-4.5); LYMPH % 7.2 % (8-40); MCHC 27.7 g/dl (32.0-35.9); MEAN CELL VOLUME 61.9 fl (80-96); MEAN PLT VOLUME 8.3 fl (7.5-11.1); MONO % 6.9 % (3.8-10.2); NEUT % 83.6 % (42.8-82.8); PLATELET COUNT 349 K/MM3 (134-434); RBC 3.23 M/mm3 (4.00-5.60); WHITE BLOOD COUNT 13.8 K/mm3 (4.0-10.8)
[2019-08-13 19:23] LABS: MCH 17.1 pg (25.7-33.7)
[2019-08-13 19:26] LABS: HEMOGLOBIN 5.5 GM/dl (11.7-16.9)
[2019-08-13 19:27] LABS: ADD RBC MORPHOLOGY YES
--- NOTE | 2019-08-13 19:28 | PDOC ---
*Physical Exam - Vital Signs Last Vital Signs Temp Pulse Resp BP Pulse Ox 99.5 F 101 H 26 H 128/65 97 08/13/19 18:30 08/13/19 18:42 08/13/19 18:30 08/13/19 18:30 08/13/19 18:42 ED Treatment Course - LABORATORY CBC & Chemistry Diagram: 08/13/19 19:07 08/13/19 19:14 - Medications Given in the ED: ED Medications Discontinued Medications Generic Name Dose Route Start Last Admin Trade Name Cheyanne PRN Reason Stop Dose Admin Albuterol/Ipratropium 1 amp 08/13/19 18:47 08/13/19 19:00 Duoneb - NEB 08/13/19 18:48 1 amp ONCE ONE Administration Medical Decision Making - Medical Decision Making 08/13/19 19:26 pt signed out from Dr Delgado at 7pm pending workup and reeval in summary, 68 YOM with PMH COPD, recurrent pneumonia, HTN and HLD who presents to the ED, via EMS, with cough, fever and SOB Vital Signs Temp Pulse Resp BP Pulse Ox 99.5 F 101 H 26 H 128/65 97 08/13/19 18:30 08/13/19 18:42 08/13/19 18:30 08/13/19 18:30 08/13/19 18:42 vitals reviewed, tachypneic, LGF and tachycardia. on supp O2 2L for o2 support, improved to 97% on NC labs and lytes noted for +anemia, Hb/hct 5/20 txs, transfuse 2 units guaiac neg cxr with b/l infiltrates, treating as PNA. s/p ceftriaxone and azithromycin for CAP coverage duonebs and steroids (dexamethasone with EMS) feels improved with the duonebs/abx and supp O2 remainder of labs unremarkable, notable for wbc ct, anemia and neg trop, ECG unremarkable VBG normal, no acidosis or alkalosis flu neg consented for blood discussed risks and benefits, agreeable to blood transfusion for symptomatic anemia admit to Dr Nuñez, s/o [employer] [facility] surg bed at [place] 08/13/19 20:30 08/13/19 20:36 08/13/19 20:49 Discharge - Discharge Information Problems reviewed: Yes Clinical Impression/Diagnosis: COPD exacerbation Anemia Qualifiers: Anemia type: unspecified type Qualified Code(s): D64.9 - Anemia, unspecified Pneumonia Qualifiers: Pneumonia type: due to unspecified organism Laterality: unspecified laterality Lung location: unspecified part of lung Qualified Code(s): J18.9 - Pneumonia, unspecified organism Condition: Guarded - Admission Yes - Follow up/Referral - Patient Discharge Instructions - Post Discharge Activity
[2019-08-13 19:29] LABS: ALBUMIN 3.2 g/dl (3.4-5.0); BILIRUBIN,TOTAL 0.3 mg/dl (0.2-1); CALCIUM 8.1 mg/dl (8.5-10); CREATININE 0.9 mg/dl (0.55-1.3); POTASSIUM 3.9 mmol/L (3.5-5.1); TOT PROT 6.6 g/dl (6.4-8.2)
[2019-08-13 19:37] LABS: INR 1.43 (0.82-1.09); PROTHROMBIN TIME (PATIENT) 15.9 SEC (10.2-13.0)
[2019-08-13 20:02] LABS: ANISOCYTOSIS 1+
[2019-08-13 20:03] LABS: PLATELET ESTIMATE ADEQUATE
[2019-08-13 20:28] LABS: VENOUS PC02 36.9 mmHg (38-52); VENOUS PO2 < 49 mmHg (28-48)
[2019-08-13] MEDS ORDERED: SODIUM CHLORIDE 500 ML IV STA (21:55)
[2019-08-13 22:56] VITALS: BMI 30.6
[2019-08-13] MEDS: HEPARIN NA (PORCINE) 5,000 UNITS/ML 1ML VIAL SQ SCH (22:57)
[2019-08-14] MEDS ORDERED: DOXEPIN HCL 50 MG CAPSULE PO ONE (01:54)
[2019-08-14] MEDS ORDERED: MELATONIN 5 MG TABLETS PO ONE (02:04)
[2019-08-14] MEDS: ALBUTEROL SO4 2.5/IPRATROPIUM 0.5 INH SOL 3 ML VIAL.NEB. NEB PRN ×3 (02:20→12:15)
[2019-08-14] MEDS: ACETAMINOPHEN 325 MG TABLET (FP) PO PRN ×2 (02:20→17:25)
[2019-08-14] MEDS ORDERED: FUROSEMIDE 40 MG/4 ML INJECTABLE VIAL IVPUSH ONE ×2 (05:00→14:41)
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
[2019-08-14 09:11] LABS: CALCIUM 8.2 mg/dl (8.5-10)
[2019-08-14 09:12] LABS: EOS % 0.1 % (0-4.5); HEMATOCRIT 25.1 % (35.4-49); HEMOGLOBIN 7.2 GM/dl (11.7-16.9); LYMPH % 5.9 % (8-40); MCH 18.9 pg (25.7-33.7); MCHC 28.5 g/dl (32.0-35.9); MEAN CELL VOLUME 66.3 fl (80-96); MEAN PLT VOLUME 8.7 fl (7.5-11.1); MONO % 1.3 % (3.8-10.2); NEUT % 92.7 % (42.8-82.8); PLATELET COUNT 317 K/MM3 (134-434); RBC 3.78 M/mm3 (4.00-5.60); RDW 22.3 % (11.9-15.9); WHITE BLOOD COUNT 16.6 K/mm3 (4.0-10.8)
[2019-08-14] MEDS ORDERED: SENNOSIDES 8.6MG TABLET (FP) PO PRN (09:13)
[2019-08-14] MEDS: CEFTRIAXONE 1 G/50 ML PREMIX 50 ML IVPB SCH (09:43)
[2019-08-14] MEDS: HEPARIN NA (PORCINE) 5,000 UNITS/ML 1ML VIAL SQ SCH ×2 (09:43→21:57)
[2019-08-14] MEDS: cloNIDine HCL 0.1 MG TABLET PO SCH ×2 (09:45→21:56)
[2019-08-14] MEDS: amLODIPine BESYLATE 10 MG TABLET (FP) PO SCH (09:45)
[2019-08-14] MEDS: BUDESONIDE/FORMETEROL FUMARATE 160/4.5 mcg INHALER IH SCH ×2 (10:15→21:57)
[2019-08-14] MEDS ORDERED: ARTIFICIAL TEARS (POLYVINYL ALCOHOL) OPTH DROPS OU PRN (10:36)
[2019-08-14] MEDS: AZITHROMYCIN IVPB 500 MG/250 ML BAG IVPB SCH (10:55)
--- NOTE | 2019-08-14 11:03 | EKG ---
Test Reason : Blood Pressure : / mmHG Vent. Rate : 093 BPM Atrial Rate : 093 BPM P-R Int : 122 ms QRS Dur : 088 ms QT Int : 368 ms P-R-T Axes : 052 -03 071 degrees QTc Int : 457 ms NORMAL SINUS RHYTHM NONSPECIFIC ST AND T WAVE ABNORMALITY ABNORMAL ECG WHEN COMPARED WITH ECG OF 25-APR-2019 11:11, NO SIGNIFICANT CHANGE WAS FOUND Confirmed by GAURAV DAY, LINO ([id number]) on 08/14/2019 11:03:03 AM Referred By: JUAN MANUEL NAIR Confirmed By:LINO NOLASCO MD
[2019-08-14] MEDS ORDERED: SODIUM CHLORIDE 1,000 ML IV STA (11:30)
[2019-08-14] MEDS ORDERED: IRON SUCROSE INJECTION 100 MG in SODIUM CHLORIDE 95 ML IVPB ONE (11:45)
[2019-08-14 14:16] LABS: HEMATOCRIT 24.1 % (35.4-49); MCHC 29.2 g/dl (32.0-35.9); MEAN CELL VOLUME 65.9 fl (80-96); MEAN PLT VOLUME 8.5 fl (7.5-11.1); PLATELET COUNT 292 K/MM3 (134-434); RBC 3.66 M/mm3 (4.00-5.60); RDW 23.6 % (11.9-15.9); WHITE BLOOD COUNT 18.7 K/mm3 (4.0-10.8)
[2019-08-14 14:17] LABS: MCH 19.2 pg (25.7-33.7)
[2019-08-14] MEDS: methylPREDNISolone NA SUCC 40 MG/1 ML VIAL IVPUSH SCH ×2 (14:19→17:26)
[2019-08-14] MEDS: LORazepam 1 MG TABLET PO SCH ×2 (14:19→21:52)
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
[2019-08-14] MEDS ORDERED: diphenhydrAMINE HCL 25 MG CAPSULE (FP) PO ONE (19:15)
[2019-08-14] MEDS ORDERED: PT OWN MED DRAWER 7, Y5N ONE (21:49)
[2019-08-14] MEDS: TAMSULOSIN HCL 0.4 MG CAP PO SCH (21:56)
[2019-08-14] MEDS: DOXEPIN HCL 25 MG CAPSULE PO SCH (21:56)
[2019-08-14] MEDS: ATORVASTATIN CA 20 MG TABLET (FP) PO SCH (21:56)
[2019-08-14] MEDS: ALBUTEROL SO4 2.5/IPRATROPIUM 0.5 INH SOL 3 ML VIAL.NEB. NEB SCH (21:56)
[2019-08-14] MEDS ORDERED: ATORVASTATIN CA 10 MG TABLET (FP) PO SCH (22:00)
[2019-08-14] MEDS: FLUTICASONE PROP 0.05% 16 GM NASAL SPRAY NS SCH (22:00)
[2019-08-14] MEDS: traMADol HCL 50 MG TABLET PO PRN (22:30)
[2019-08-15] MEDS: methylPREDNISolone NA SUCC 40 MG/1 ML VIAL IVPUSH SCH ×3 (02:00→19:07)
[2019-08-15] MEDS: LORazepam 1 MG TABLET PO SCH ×3 (06:30→22:44)
[2019-08-15 08:36] LABS: HEMATOCRIT 26.3 % (35.4-49); HEMOGLOBIN 7.9 GM/dl (11.7-16.9); MCH 20.8 pg (25.7-33.7); MCHC 30.3 g/dl (32.0-35.9); MEAN CELL VOLUME 68.5 fl (80-96); MEAN PLT VOLUME 8.7 fl (7.5-11.1); PLATELET COUNT 253 K/MM3 (134-434); RBC 3.83 M/mm3 (4.00-5.60); RDW 24.4 % (11.9-15.9); WHITE BLOOD COUNT 20.6 K/mm3 (4.0-10.8)
[2019-08-15 08:50] LABS: CALCIUM 8.2 mg/dl (8.5-10); CREATININE 0.7 mg/dl (0.55-1.3); POTASSIUM 4.2 mmol/L (3.5-5.1)
[2019-08-15 09:07] LABS: ADD RBC MORPHOLOGY YES
[2019-08-15] MEDS: CEFTRIAXONE 1 G/50 ML PREMIX 50 ML IVPB SCH (09:38)
[2019-08-15] MEDS: ALBUTEROL SO4 2.5/IPRATROPIUM 0.5 INH SOL 3 ML VIAL.NEB. NEB SCH ×4 (09:38→20:39)
[2019-08-15] MEDS: cloNIDine HCL 0.1 MG TABLET PO SCH ×2 (09:38→22:44)
[2019-08-15] MEDS: BUDESONIDE/FORMETEROL FUMARATE 160/4.5 mcg INHALER IH SCH ×2 (09:39→22:52)
[2019-08-15] MEDS: amLODIPine BESYLATE 10 MG TABLET (FP) PO SCH (09:39)
[2019-08-15] MEDS: AZITHROMYCIN IVPB 500 MG/250 ML BAG IVPB SCH (09:39)
[2019-08-15] MEDS: HEPARIN NA (PORCINE) 5,000 UNITS/ML 1ML VIAL SQ SCH (09:39)
[2019-08-15] MEDS: FLUTICASONE PROP 0.05% 16 GM NASAL SPRAY NS SCH ×2 (09:39→22:52)
[2019-08-15 12:05] LABS: ANISOCYTOSIS 2+; MACROCYTOSIS 1+; OVALOCYTE 2+; PLATELET ESTIMATE ADEQUATE; TEAR DROP CELLS 1+
--- NOTE | 2019-08-15 13:37 | PN ---
Progress Note (short form) - Note Progress Note: PULMONARY OFFERS NO RESP COMPLAINTS SUBJECTIVELY IMPROVED VSS/AFEBRILE Constitutional: Yes: Mild Distress Eyes: Yes: Conjunctiva Clear, EOM Intact HENT: Yes: Atraumatic, Normocephalic Neck: Yes: Supple, Trachea Midline Cardiovascular: Yes: Regular Rate and Rhythm Respiratory: Yes: Rhonchi, Wheezes ...Clubbing: No Gastrointestinal: Yes: Normal Bowel Sounds, Soft. No: Tenderness Edema: No Neurological: Yes: Alert, Oriented Labs: 7.9 HGB Imaging - Results Chest X-ray: Report Reviewed, Image Reviewed (bibasilar infiltrates) Problem List - Problems (1) Acute hypoxemic respiratory failure Code(s): J96.01 - ACUTE RESPIRATORY FAILURE WITH HYPOXIA (2) Anemia Code(s): D64.9 - ANEMIA, UNSPECIFIED Qualifiers: Anemia type: unspecified type Qualified Code(s): D64.9 - Anemia, unspecified (3) COPD exacerbation Code(s): J44.1 - CHRONIC OBSTRUCTIVE PULMONARY DISEASE W (ACUTE) EXACERBATION (4) Pneumonia Code(s): J18.9 - PNEUMONIA, UNSPECIFIED ORGANISM Qualifiers: Pneumonia type: due to unspecified organism Laterality: unspecified laterality Lung location: unspecified part of lung Qualified Code(s): J18.9 - Pneumonia, unspecified organism Assessment/Plan Acute Hypoxic Respiratory Failure Acute COPD Exacerbation Bronchiectasis Anemia Sepsis Lactic Acidosis Atrial Fibrillation CAD Anxiety h/o TBI BPH - IV antibiotics - f/u cultures, urinary antigens - IV medrol for now - inhaled bronchodilators standing and PRN - O2 to keep SpO2 >90% - IVF - rate control - monitor H/H - when ready for discharge, check ambulatory SpO2 on room air to assess for home O2 - DVT prophylaxis - Would re-consult Dr Singh ( saw patient in 03/2019) - Keep hgb greater than 7gms Cristian OLIVIA MD
[2019-08-15] MEDS: ALBUTEROL SO4 0.083% IH SOL 2.5 MG/3 ML VIAL.NEB. NEB PRN (14:16)
[2019-08-15] MEDS: INSULIN SLIDING SCALE (NOVOLOG) 1 VIAL SQ SCH ×2 (18:39→22:46)
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
[2019-08-15] MEDS: traMADol HCL 50 MG TABLET PO PRN (22:44)
[2019-08-15] MEDS: ATORVASTATIN CA 20 MG TABLET (FP) PO SCH (22:44)
[2019-08-15] MEDS: ASCORBIC ACID 500 MG TABLET (FP) PO SCH (22:44)
[2019-08-15] MEDS: DOXEPIN HCL 25 MG CAPSULE PO SCH (22:45)
[2019-08-15] MEDS: FERROUS SO4 325 MG TABLET (FP) PO SCH (22:46)
[2019-08-15] MEDS: TAMSULOSIN HCL 0.4 MG CAP PO SCH (22:53)
[2019-08-16] MEDS: methylPREDNISolone NA SUCC 40 MG/1 ML VIAL IVPUSH SCH ×3 (01:01→17:37)
[2019-08-16] MEDS: LORazepam 1 MG TABLET PO SCH ×3 (07:10→21:48)
[2019-08-16] MEDS: INSULIN SLIDING SCALE (NOVOLOG) 1 VIAL SQ SCH ×4 (07:11→21:50)
[2019-08-16] MEDS ORDERED: PT OWN MED DRAWER 7, Y5N ONE (09:27)
[2019-08-16 09:28] LABS: BASO % 0.3 % (0-2.0); HEMATOCRIT 27.9 % (35.4-49); LYMPH % 8.2 % (8-40); MCH 21.1 pg (25.7-33.7); MCHC 30.1 g/dl (32.0-35.9); MEAN PLT VOLUME 9.6 fl (7.5-11.1); MONO % 2.4 % (3.8-10.2); NEUT % 89.1 % (42.8-82.8); PLATELET COUNT 347 K/MM3 (134-434); RBC 3.99 M/mm3 (4.00-5.60); RDW 24.6 % (11.9-15.9); WHITE BLOOD COUNT 25.2 K/mm3 (4.0-10.8)
[2019-08-16 09:40] LABS: HEMOGLOBIN 8.4 GM/dl (11.7-16.9)
[2019-08-16] MEDS: CEFTRIAXONE 1 G/50 ML PREMIX 50 ML IVPB SCH (09:50)
[2019-08-16] MEDS: ALBUTEROL SO4 2.5/IPRATROPIUM 0.5 INH SOL 3 ML VIAL.NEB. NEB SCH ×4 (09:50→20:20)
[2019-08-16] MEDS: FERROUS SO4 325 MG TABLET (FP) PO SCH ×2 (09:50→21:49)
[2019-08-16] MEDS: ASCORBIC ACID 500 MG TABLET (FP) PO SCH ×2 (09:51→21:49)
[2019-08-16] MEDS: cloNIDine HCL 0.1 MG TABLET PO SCH ×2 (09:52→21:48)
[2019-08-16] MEDS: PANTOPRAZOLE 40 MG TABLET PO SCH (09:52)
[2019-08-16] MEDS: AZITHROMYCIN IVPB 500 MG/250 ML BAG IVPB SCH (09:53)
[2019-08-16] MEDS: amLODIPine BESYLATE 10 MG TABLET (FP) PO SCH (09:53)
[2019-08-16] MEDS: FLUTICASONE PROP 0.05% 16 GM NASAL SPRAY NS SCH ×2 (09:53→21:48)
[2019-08-16] MEDS: BUDESONIDE/FORMETEROL FUMARATE 160/4.5 mcg INHALER IH SCH ×2 (09:53→21:48)
--- NOTE | 2019-08-16 12:06 | PN ---
Progress Note (short form) - Note Progress Note: Patient seen and chart reviewed, including prior GI consult (04/14, Dr. Singh) Consult dictated. Patient is a 68 yo male with microcytic anemia and low iron studies but guaiac negative stool and no specific GI complaints. Has hx of colon polyps in past but reports negative colonoscopy (and EGD) 4 years ago @ [facility]. non- smoker/denies ETOH. Denies hx of anemia/Thallasemia. Reports eating a regular diet (and ?has been on iron supplements). Received PRBC transfusions since admission. Rec Heme evaluation Consider EGD/colonoscopy after pneumonia resolved (if patient agreeable - currently reluctant) Monitor CBC Will follow as needed
--- NOTE | 2019-08-16 14:04 | PN ---
Documentation entered by Mary Wright SCRIBE, acting as scribe for Krystina Mobley NP. Physical Exam: SUBJECTIVE: Patient seen and examined at bedside. Pt reports breathing better prior to arrival. Denies h/o bleeding ulcers, rectal bleeding, or ever been told he was anemic. OBJECTIVE: Vital Signs Period Temp Pulse Resp BP Sys/Walter Pulse Ox Last 24 Hr 98.0 F-98.7 F 87-93 18-20 115-123/59-65 90-93 GENERAL: The patient is awake, alert, and fully oriented, in no acute distress. LUNGS: Diffuse wheezing and rhonchi; no accessory muscle use HEART: Regular rate and rhythm, S1, S2 ABDOMEN: Soft, nontender, nondistended EXTREMITIES: 2+ pulses, warm, well-perfused, no edema. NEUROLOGICAL: Cranial nerves II through XII grossly intact. Normal speech, self- positions easily Laboratory Results - last 24 hr 08/15/19 08/15/19 08/15/19 06:55 07:15 07:15 WBC 20.6 H RBC 3.83 L Hgb 7.9 L Hct 26.3 L MCV 68.5 L MCH 20.8 L MCHC 30.3 L RDW 24.4 H Plt Count 253 MPV 8.7 Absolute Neuts (auto) 18.8 Neutrophils % No Result Required. Neutrophils % (Manual) 91.0 H* Band Neutrophils % 1.0 Lymphocytes % No Result Required. Lymphocytes % (Manual) 6.0 L Monocytes % (Manual) 2 L Hypochromia 2+ Platelet Estimate Adequate Platelet Comment Moderate large plts Polychromasia 1+ Anisocytosis 2+ Microcytosis 2+ Macrocytosis 1+ Tear Drop Cells 1+ Ovalocytes 2+ Sodium 137 Potassium 4.2 Chloride 108 H Carbon Dioxide 21 Anion Gap 8 BUN 15.0 Creatinine 0.7 Est GFR (CKD-EPI)AfAm 111.60 Est GFR (CKD-EPI)NonAf 96.29 POC Glucometer Random Glucose 148 H Hemoglobin A1c % 5.6 Lactic Acid Calcium 8.2 L 08/15/19 08/15/19 08/15/19 07:15 18:37 21:01 WBC RBC Hgb Hct MCV MCH MCHC RDW Plt Count MPV Absolute Neuts (auto) Neutrophils % Neutrophils % (Manual) Band Neutrophils % Lymphocytes % Lymphocytes % (Manual) Monocytes % (Manual) Hypochromia Platelet Estimate Platelet Comment Polychromasia Anisocytosis Microcytosis Macrocytosis Tear Drop Cells Ovalocytes Sodium Potassium Chloride Carbon Dioxide Anion Gap BUN Creatinine Est GFR (CKD-EPI)AfAm Est GFR (CKD-EPI)NonAf POC Glucometer 239 178 Random Glucose Hemoglobin A1c % Lactic Acid 2.3 H* Calcium 08/16/19 08/16/19 07:00 07:05 WBC RBC Hgb Hct MCV MCH MCHC RDW Plt Count MPV Absolute Neuts (auto) Neutrophils % Neutrophils % (Manual) Band Neutrophils % Lymphocytes % Lymphocytes % (Manual) Monocytes % (Manual) Hypochromia Platelet Estimate Platelet Comment Polychromasia Anisocytosis Microcytosis Macrocytosis Tear Drop Cells Ovalocytes Sodium 138 Potassium 4.0 Chloride 111 H Carbon Dioxide 19 L Anion Gap 8 BUN 20.0 H Creatinine 1.0 Est GFR (CKD-EPI)AfAm 88.61 Est GFR (CKD-EPI)NonAf 76.45 POC Glucometer 137 Random Glucose 137 H Hemoglobin A1c % Lactic Acid Calcium 8.0 L Active Medications Generic Name Dose Route Start Last Admin Trade Name Freq PRN Reason Stop Dose Admin Acetaminophen 650 mg 08/14/19 01:53 08/14/19 17:25 Tylenol - PO 650 mg Q6H PRN Administration PAIN LEVEL 6-10 Albuterol Sulfate 1 amp 08/14/19 16:24 08/15/19 14:16 Ventolin 0.083% Nebulizer Soln - NEB 1 amp Q4H PRN Administration SHORT OF BREATH/WHEEZING Albuterol/Ipratropium 1 amp 08/14/19 20:00 08/15/19 20:39 Duoneb - NEB 1 amp RQID CHUCK Administration Amlodipine Besylate 10 mg 08/14/19 10:00 08/15/19 09:39 Norvasc - PO 10 mg DAILY CHUCK Administration Artificial Tears 1 drop 08/14/19 10:36 08/14/19 15:04 Artificial Tears OU 1 drop BID PRN Administration DRY EYES Ascorbic Acid 500 mg 08/15/19 22:00 08/15/19 22:44 Vitamin C - PO 500 mg BID CHUCK Administration Atorvastatin Calcium 20 mg 08/14/19 22:00 08/15/19 22:44 Lipitor - PO 20 mg HS CHUCK Administration Budesonide/Formoterol Fumarate 2 puff 08/14/19 10:00 08/15/19 22:52 Symbicort 160/4.5mcg - IH 2 puff BID CHUCK Administration Clonidine 0.2 mg 08/14/19 10:00 08/15/19 22:44 Catapres - PO 0.2 mg BID CHUCK Administration Doxepin HCl 175 mg 08/14/19 22:00 08/15/19 22:45 Sinequan - PO 175 mg HS CHUCK Administration Ferrous Sulfate 325 mg 08/15/19 22:00 08/15/19 22:46 Feosol - PO 325 mg BID CHUCK Administration Fluticasone Propionate 2 spray 08/14/19 22:00 08/15/19 22:52 Flonase - NS 2 spray BID CHUCK Administration Azithromycin 500 mg in 250 mls @ 250 mls/hr 08/14/19 10:00 08/15/19 09:39 Zithromax 500mg Ivpb (Pre-Docked) IVPB 250 mls/hr DAILY CHUCK Administration Ceftriaxone Sodium 50 mls @ 100 mls/hr 08/14/19 10:00 08/15/19 09:38 Ceftriaxone 1 Gm-D5w Bag IVPB 100 mls/hr DAILY CHUCK Administration Protocol Insulin Aspart 1 vial 08/15/19 16:30 08/16/19 07:11 Novolog Vial Sliding Scale - SQ Not Given ACHS [facility] Protocol Lorazepam 2 mg 08/14/19 14:00 08/16/19 07:10 Ativan - PO 2 mg TID CHUCK Administration Methylprednisolone Sodium Succinate 40 mg 08/14/19 14:00 08/16/19 01:01 Solu-Medrol - IVPUSH 40 mg Q8H-IV CHUCK Administration Pantoprazole Sodium 40 mg 08/15/19 18:30 Protonix - PO DAILY CHUCK Senna 2 tab 08/14/19 09:13 Senna - PO HS PRN CONSTIPATION Tamsulosin HCl 0.4 mg 08/14/19 22:00 08/15/19 22:53 Flomax - PO 0.4 mg HS CHUCK Administration Tramadol HCl 50 mg 08/14/19 19:03 08/15/19 22:44 Ultram - PO 50 mg Q8H PRN Administration PAIN LEVEL 6-10 ASSESSMENT/PLAN 68 year-old male with a PMH significant for HTN, HLD, COPD, recurrent pneumoina , TBI and bipolar disorder. Admitted for pneumonia and severe anemia. 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 --pre post ordered --continue ceftriaxone (day #3) and azithro (day #3) Microcytic anemia --Hgb 5.5 on admission, transfused 3U, now 8.4, less than robust response --has been on iron supplements at home, no previous transfusions --occult stool negative --seen and evaluated by GI, recommends EGD/colon when more stable --hemolysis labs --if h/h stable tomorrow, will start venofer Hypertension --BP stable --continue clonidine, amlodipine Hyperlipidemia --continue Lipitor Bipolar disorder --continue doxepin, lorazepam FEN Fluids: PO intake adequate Electrolytes: replete as indicated Nutrition: low sodium DVT prophylaxis: hold chemical prophylaxis due to anemia; SCDs Visit type - Emergency Visit Emergency Visit: Yes ED Registration Date: 08/13/19 Care time: The patient presented to the Emergency Department on the above date and was hospitalized for further evaluation of their emergent condition. - New Patient This patient is new to me today: Yes Date on this admission: 08/18/19 - Critical Care Critical Care patient: No Krystina Mobley, ELECTRICAL DESIGNER: This documentation has been prepared by the Kyle dodge Maria, SCRIBE, under my direction and personally reviewed by me in its entirety. I confirm that the documentation accurately reflects all work, treatment, procedures, and medical decision making performed by me.
--- NOTE | 2019-08-16 14:59 | CONS ---
DATE OF CONSULTATION: 08/16/2019 REQUESTED BY: Consult at the request of hospitalist, Krystina Mobley NP. REASON FOR CONSULTATION: Asked to evaluate this 68-year-old gentleman, admitted with a severe anemia with microcytic indices and a low serum iron. HISTORY OF PRESENT ILLNESS: The patient is a 68-year-old gentleman with a history of COPD, recurrent pneumonias, hypertension, hyperlipidemia, and a possible history of some medication abuse ? opiates in the past. The patient has a history of microcytic anemia and possible occult-GI blood loss. He apparently was seen by another vinyl dipper, Dr. Singh, in March 2019 for similar complaints. At the time, Dr. Singh suggested outpatient GI evaluation, as there was no evidence of active GI bleeding. The patient believes he had a colonoscopy 8 years ago with a precancerous polyp removed and a subsequent colonoscopy 4 years ago which was unremarkable. He also believes he had an upper endoscopy. These studies apparently were done at [facility]. On this occasion, the patient was admitted with a hemoglobin of 5.5, hematocrit 28%, with an MCV of 61.9, and he received multiple blood transfusions, with his most hematocrit of 27.9. His INR was 1.43 and his chemistry is notable for a BUN and creatinine of 20 and 1.0. Prior iron studies were consistent with an iron deficiency. The patient has a Hemoccult-negative stool. He denies any nausea, vomiting or abdominal pain. His appetite has been stable. He believes he has lost some weight over the last year, but believes this is in part due to dietary issues. He has been on iron supplements. PHYSICAL EXAMINATION: General: On exam, he is a well-developed, well-nourished gentleman, mildly short of breath, using a nasal cannula. His appetite, however, is good and he continues to eat his meal, in spite of questioning, and does not appear to have any swallowing issues. Abdomen: Soft, flat, and nontender. There is no obvious hepatosplenomegaly. The patient is a nonsmoker and nondrinker. Patient with microcytic anemia and evidence of iron deficiency with guaiac-negative stools. He has a history of benign colonic polyps, but reports having had colonoscopy and upper endoscopy within the past 5 years. He has not followed through with his prior request for GI endoscopy by Dr. Singh several months ago and does not appear interested at the present time. His hematocrit has improved, status post transfusion. In view of patient's iron deficiency, and guaiac-negative stool, a Hematology evaluation might be suggested. The patient denies having thalassemia, and states that he does not normally have anemia, although from his records, this is not easily discerned. At the present time, there is no need for acute GI intervention, and as mentioned, the patient has an acute pneumonia, and is reluctant to undergo repeat endoscopy. Will follow as needed, and agree with the prior GI evaluation for semi-elective upper and lower GI endoscopy, as well as Hematology evaluation. DENNY CONTRERAS M.D. [id number]
--- NOTE | 2019-08-16 15:51 | ECHO ---
Name: CHARLES HENDERSON Exam:Adult Echocardiogram Study Date: 08/16/2019 01:42 PM Age: 68 yrs Reason For Study: MALDONADO Height: 68 in Weight: 201 lb BSA: 2.0 m2 MMode/2D Measurements & Calculations IVSd: 1.1 cm Ao root diam: 2.7 cm LVIDd: 4.7 cm LA dimension: 2.9 cm LVIDs: 2.7 cm LVPWd: 1.1 cm EDV(Teich): 101.7 ml LVOT diam: 2.0 cm ESV(Teich): 26.7 ml Doppler Measurements & Calculations MV E max katie: 148.1 cm/sec MV A max katie: 187.5 cm/sec MV dec slope: 676.9 cm/sec2 MV E/A: 0.79 Ao V2 max: 258.0 cm/sec LV V1 max P.9 mmHg Ao max P.6 mmHg LV V1 max: 199.6 cm/sec Ao V2 mean: 171.8 cm/sec Ao mean P.8 mmHg Ao V2 VTI: 47.9 cm YENY(V,D): 2.5 cm2 MR max katie: 502.5 cm/sec TR max katie: 272.2 cm/sec MR max P.0 mmHg TR max P.6 mmHg PA V2 max: 130.9 cm/sec PA max P.8 mmHg Procedure A two-dimensional transthoracic echocardiogram with color flow and Doppler was performed. Left Ventricle The left ventricular size, thickness and function are normal. Ejection Fraction = 55%. Grade I diasto lic dysfunction, (abnormal relaxation pattern). Right Ventricle The right ventricle is normal in size and function. Atria Normal left and right atrial size and function. Mitral Valve There is mild mitral annular calcification. There is trace mitral regurgitation. Tricuspid Valve The tricuspid valve is normal in structure and function. Doppler findings do not suggest pulmonary hypertension. Aortic Valve The aortic valve is not well visualized. No hemodynamically significant valvular aortic stenosis. Pulmonic Valve The pulmonic valve leaflets are thin and pliable; valve motion is normal. Great Vessels The aortic root is normal size. Pericardium/Pleura There is no pericardial effusion. Interpretation Summary The left ventricular size, thickness and function are normal The right ventricle is normal in size and function. No hemodynamically significant valvular aortic stenosis. There is no pericardial effusion. Tyrone Greene 08/16/2019 03:51 PM
--- NOTE | 2019-08-16 17:26 | PN ---
Progress Note (short form) - Note Progress Note: PULMONARY OFFERS NO RESP COMPLAINTS SUBJECTIVELY IMPROVED WANTS TO GO HOME HAD BLOOD STREAKED SPUTUM YESTERDAY/NONE TODAY VSS/AFEBRILE Constitutional: Yes: Mild Distress Eyes: Yes: Conjunctiva Clear, EOM Intact HENT: Yes: Atraumatic, Normocephalic Neck: Yes: Supple, Trachea Midline Cardiovascular: Yes: Regular Rate and Rhythm Respiratory: Yes: Rhonchi, Wheezes ...Clubbing: No Gastrointestinal: Yes: Normal Bowel Sounds, Soft. No: Tenderness Edema: No Neurological: Yes: Alert, Oriented Labs: 8.4gms CT CHEST NOTED Acute Hypoxic Respiratory Failure Acute COPD Exacerbation Bronchiectasis Anemia Sepsis Lactic Acidosis Atrial Fibrillation CAD Anxiety h/o TBI BPH - IV antibiotics - IV medrol - inhaled bronchodilators standing and PRN - O2 to keep SpO2 >90% - IVF - rate control - monitor H/H - check ambulatory SpO2 on room air to assess for home O2 - DVT prophylaxis - Would re-consult Dr Singh ( saw patient in 03/2019) - Keep hgb greater than 8gms Cristian OLIVIA MD
[2019-08-16] MEDS: guaiFENesin/D-METHORPHAN HB 10 ML UNIT-DOSE CUPS PO PRN (20:20)
[2019-08-16] MEDS: TAMSULOSIN HCL 0.4 MG CAP PO SCH (21:49)
[2019-08-16] MEDS: ATORVASTATIN CA 20 MG TABLET (FP) PO SCH (21:49)
[2019-08-16] MEDS: traMADol HCL 50 MG TABLET PO PRN (21:49)
[2019-08-16] MEDS: DOXEPIN HCL 25 MG CAPSULE PO SCH (21:50)
[2019-08-16] MEDS: ALBUTEROL SO4 0.083% IH SOL 2.5 MG/3 ML VIAL.NEB. NEB PRN (22:08)
[2019-08-17] MEDS: methylPREDNISolone NA SUCC 40 MG/1 ML VIAL IVPUSH SCH ×3 (02:10→17:52)
[2019-08-17] MEDS: LORazepam 1 MG TABLET PO SCH ×3 (06:49→21:14)
[2019-08-17] MEDS: INSULIN SLIDING SCALE (NOVOLOG) 1 VIAL SQ SCH ×4 (06:50→21:15)
[2019-08-17 08:09] LABS: ALBUMIN 2.6 g/dl (3.4-5.0); BILIRUBIN,TOTAL 0.6 mg/dl (0.2-1); CALCIUM 7.8 mg/dl (8.5-10); CREATININE 0.8 mg/dl (0.55-1.3); MAGNESIUM 2.3 mg/dL (1.8-2.4); POTASSIUM 4.2 mmol/L (3.5-5.1); TOT PROT 5.7 g/dl (6.4-8.2)
[2019-08-17 09:22] LABS: BASO % 0.1 % (0-2.0); HEMATOCRIT 28.3 % (35.4-49); LYMPH % 7.7 % (8-40); MCH 21.3 pg (25.7-33.7); MCHC 30.1 g/dl (32.0-35.9); MEAN CELL VOLUME 70.8 fl (80-96); MEAN PLT VOLUME 9.3 fl (7.5-11.1); MONO % 2.6 % (3.8-10.2); NEUT % 89.6 % (42.8-82.8); PLATELET COUNT 410 K/MM3 (134-434); RDW 25.9 % (11.9-15.9)
[2019-08-17 09:29] LABS: HEMOGLOBIN 8.5 GM/dl (11.7-16.9)
[2019-08-17] MEDS: ALBUTEROL SO4 2.5/IPRATROPIUM 0.5 INH SOL 3 ML VIAL.NEB. NEB SCH ×4 (09:51→21:13)
[2019-08-17] MEDS: ASCORBIC ACID 500 MG TABLET (FP) PO SCH ×2 (09:55→21:14)
[2019-08-17] MEDS: amLODIPine BESYLATE 10 MG TABLET (FP) PO SCH (09:56)
[2019-08-17] MEDS: cloNIDine HCL 0.1 MG TABLET PO SCH ×2 (09:56→21:14)
[2019-08-17] MEDS: PANTOPRAZOLE 40 MG TABLET PO SCH (09:56)
[2019-08-17] MEDS: CEFTRIAXONE 1 G/50 ML PREMIX 50 ML IVPB SCH (09:56)
[2019-08-17] MEDS: BUDESONIDE/FORMETEROL FUMARATE 160/4.5 mcg INHALER IH SCH ×2 (09:57→21:16)
[2019-08-17] MEDS: FERROUS SO4 325 MG TABLET (FP) PO SCH ×2 (09:57→21:14)
[2019-08-17] MEDS: FLUTICASONE PROP 0.05% 16 GM NASAL SPRAY NS SCH ×2 (09:57→21:15)
[2019-08-17] MEDS: AZITHROMYCIN IVPB 500 MG/250 ML BAG IVPB SCH (09:58)
[2019-08-17] MEDS: FUROSEMIDE 40 MG/4 ML INJECTABLE VIAL IVPUSH SCH (10:02)
[2019-08-17] MEDS: guaiFENesin/D-METHORPHAN HB 10 ML UNIT-DOSE CUPS PO PRN ×2 (14:23→22:25)
[2019-08-17] MEDS: traMADol HCL 50 MG TABLET PO PRN (14:23)
--- NOTE | 2019-08-17 18:09 | PN ---
Documentation entered by Mary Wright SCRIBE, acting as scribe for Krystina Mobley NP. Physical Exam: SUBJECTIVE: Patient seen and examined at bedside. Pt c/o persistent non- productive cough. OBJECTIVE: Vital Signs Period Temp Pulse Resp BP Sys/Walter Pulse Ox Last 24 Hr 97.4 F-98.2 F 81-92 18-20 116-129/49-62 90-94 GENERAL: The patient is awake, alert, and fully oriented, in no acute distress. LUNGS:Mild bibasilar wheezing, no ronchi, improved; persistent cough HEART: Regular rate and rhythm, S1, S2 ABDOMEN: Soft, nontender, nondistended EXTREMITIES: 2+ pulses, warm, well-perfused, no edema. NEUROLOGICAL: Cranial nerves II through XII grossly intact. Normal speech, self- positions easily PSYCH: agitated, raised voice toward , hostile Laboratory Results - last 24 hr 08/13/19 08/16/19 08/16/19 19:44 07:00 11:12 WBC 25.2 H RBC 3.99 L Hgb 8.4 L Hct 27.9 L MCV 70.0 L MCH 21.1 L MCHC 30.1 L RDW 24.6 H Plt Count 347 D MPV 9.6 D Absolute Neuts (auto) 22.4 Neutrophils % 89.1 H Lymphocytes % 8.2 D Monocytes % 2.4 L D Eosinophils % 0.0 D Basophils % 0.3 D Sodium Potassium Chloride Carbon Dioxide Anion Gap BUN Creatinine Est GFR (CKD-EPI)AfAm Est GFR (CKD-EPI)NonAf POC Glucometer 262 Random Glucose Calcium Magnesium Total Bilirubin AST ALT Alkaline Phosphatase Total Protein Albumin Blood Type B POSITIVE Antibody Screen Negative Crossmatch See Detail 08/16/19 08/16/19 08/17/19 17:01 20:39 06:46 WBC RBC Hgb Hct MCV MCH MCHC RDW Plt Count MPV Absolute Neuts (auto) Neutrophils % Lymphocytes % Monocytes % Eosinophils % Basophils % Sodium Potassium Chloride Carbon Dioxide Anion Gap BUN Creatinine Est GFR (CKD-EPI)AfAm Est GFR (CKD-EPI)NonAf POC Glucometer 148 210 142 Random Glucose Calcium Magnesium Total Bilirubin AST ALT Alkaline Phosphatase Total Protein Albumin Blood Type Antibody Screen Crossmatch 08/17/19 07:20 WBC RBC Hgb Hct MCV MCH MCHC RDW Plt Count MPV Absolute Neuts (auto) Neutrophils % Lymphocytes % Monocytes % Eosinophils % Basophils % Sodium 131 L Potassium 4.2 Chloride 103 Carbon Dioxide 23 Anion Gap 5 L BUN 19.0 H Creatinine 0.8 Est GFR (CKD-EPI)AfAm 105.64 Est GFR (CKD-EPI)NonAf 91.15 POC Glucometer Random Glucose 129 H Calcium 7.8 L Magnesium 2.3 Total Bilirubin 0.6 AST 31 ALT 43 Alkaline Phosphatase 56 Total Protein 5.7 L Albumin 2.6 L Blood Type Antibody Screen Crossmatch Active Medications Generic Name Dose Route Start Last Admin Trade Name Freq PRN Reason Stop Dose Admin Acetaminophen 650 mg 08/14/19 01:53 08/14/19 17:25 Tylenol - PO 650 mg Q6H PRN Administration PAIN LEVEL 6-10 Albuterol Sulfate 1 amp 08/14/19 16:24 08/16/19 22:08 Ventolin 0.083% Nebulizer Soln - NEB 1 amp Q4H PRN Administration SHORT OF BREATH/WHEEZING Albuterol/Ipratropium 1 amp 08/14/19 20:00 08/16/19 20:20 Duoneb - NEB 1 amp RQID CHUCK Administration Amlodipine Besylate 10 mg 08/14/19 10:00 08/16/19 09:53 Norvasc - PO 10 mg DAILY CHUCK Administration Artificial Tears 1 drop 08/14/19 10:36 08/14/19 15:04 Artificial Tears OU 1 drop BID PRN Administration DRY EYES Ascorbic Acid 500 mg 08/15/19 22:00 08/16/19 21:49 Vitamin C - PO 500 mg BID CHUCK Administration Atorvastatin Calcium 20 mg 08/14/19 22:00 08/16/19 21:49 Lipitor - PO 20 mg HS CHUCK Administration Budesonide/Formoterol Fumarate 2 puff 08/14/19 10:00 08/16/19 21:48 Symbicort 160/4.5mcg - IH 2 puff BID CHUCK Administration Clonidine 0.2 mg 08/14/19 10:00 08/16/19 21:48 Catapres - PO 0.2 mg BID CHUCK Administration Doxepin HCl 175 mg 08/14/19 22:00 08/16/19 21:50 Sinequan - PO 175 mg HS CHUCK Administration Ferrous Sulfate 325 mg 08/15/19 22:00 08/16/19 21:49 Feosol - PO 325 mg BID CHUCK Administration Fluticasone Propionate 2 spray 08/14/19 22:00 08/16/19 21:48 Flonase - NS 2 spray BID CHUCK Administration Guaifenesin 10 ml 08/16/19 20:04 08/16/19 20:20 Robitussin Dm - PO 10 ml Q4H PRN Administration COUGH Azithromycin 500 mg in 250 mls @ 250 mls/hr 08/14/19 10:00 08/16/19 09:53 Zithromax 500mg Ivpb (Pre-Docked) IVPB 250 mls/hr DAILY CHUCK Administration Ceftriaxone Sodium 50 mls @ 100 mls/hr 08/14/19 10:00 08/16/19 09:50 Ceftriaxone 1 Gm-D5w Bag IVPB 100 mls/hr DAILY CHUCK Administration Protocol Insulin Aspart 1 vial 08/15/19 16:30 08/17/19 06:50 Novolog Vial Sliding Scale - SQ Not Given ACHS [facility] Protocol Lorazepam 2 mg 08/14/19 14:00 08/17/19 06:49 Ativan - PO 2 mg TID CHUCK Administration Methylprednisolone Sodium Succinate 40 mg 08/14/19 14:00 08/17/19 02:10 Solu-Medrol - IVPUSH 40 mg Q8H-IV CHUCK Administration Pantoprazole Sodium 40 mg 08/15/19 18:30 08/16/19 09:52 Protonix - PO 40 mg DAILY CHUCK Administration Senna 2 tab 08/14/19 09:13 Senna - PO HS PRN CONSTIPATION Tamsulosin HCl 0.4 mg 08/14/19 22:00 08/16/19 21:49 Flomax - PO 0.4 mg HS CHUCK Administration Tramadol HCl 50 mg 08/14/19 19:03 08/16/19 21:49 Ultram - PO 50 mg Q8H PRN Administration PAIN LEVEL 6-10 Microbiology 08/13/19 19:14 Blood - Peripheral Venous Blood Culture - Preliminary NO GROWTH OBTAINED AFTER 96 HOURS, INCUBATION TO CONTINUE FOR 1 DAYS. 08/13/19 19:07 Blood - Peripheral Venous Blood Culture - Preliminary NO GROWTH OBTAINED AFTER 96 HOURS, INCUBATION TO CONTINUE FOR 1 DAYS. 08/13/19 22:07 Urine - Urine Clean Catch Urine Culture - Final NO GROWTH OBTAINED 08/13/19 22:07 Urine For Antigen Detection Legionella Antigen - Final 08/13/19 22:07 Urine For Antigen Detection Streptococcus pneumoniae Antigen (M - Final ASSESSMENT/PLAN: 68 year-old male with a PMH significant for HTN, HLD, COPD, recurrent pneumoina , TBI, and bipolar disorder. Admitted for pneumonia and severe anemia. Now with newly diagnosed diastolic dysfunction. Sepsis secondary to community-acquired pneumonia --WBC 13.8K, p102, bibasilar infiltrates on CXR, lactic acid 2.4 on admission --rapid flu negative; urine pneumonia Ag negative; blood cultures NGTD; resp virus panel BUSINESS INTELLIGENCE ARCHITECT pending --lung exam improved --start to taper IV steroids; discharge on slow PO taper --continue duonebs --pre post in am --continue ceftriaxone (day #4) and azithro (day #4) Microcytic anemia --Hgb 5.5 on admission, transfused 3U, now 8.5 --has been on iron supplements at home, no previous transfusions --occult stool negative --seen and evaluated by GI, recommends EGD/colon when more stable --start venofer injections --will need outpatient follow up with GI and heme Hypertension --BP stable --continue clonidine, amlodipine Hyperlipidemia --continue Lipitor Bipolar disorder --continue doxepin, lorazepam FEN Fluids: PO intake adequate Electrolytes: replete as indicated Nutrition: low sodium DVT prophylaxis: hold chemical prophylaxis due to anemia; SCDs Dispo: continues to require inpatient care. Full code. Visit type - Emergency Visit Emergency Visit: Yes ED Registration Date: 08/13/19 Care time: The patient presented to the Emergency Department on the above date and was hospitalized for further evaluation of their emergent condition. - New Patient This patient is new to me today: No - Critical Care Critical Care patient: No - Discharge Referral Referred to [facility] No Krystina Mobley NP: This documentation has been prepared by the Kyle dodge Maria, SCRIBE, under my direction and personally reviewed by me in its entirety. I confirm that the documentation accurately reflects all work, treatment, procedures, and medical decision making performed by me.
[2019-08-17] MEDS ORDERED: IRON SUCROSE INJECTION 200 MG in SODIUM CHLORIDE 90 ML IVPB ONE (18:11)
[2019-08-17] MEDS: DOXEPIN HCL 25 MG CAPSULE PO SCH (21:14)
[2019-08-17] MEDS: TAMSULOSIN HCL 0.4 MG CAP PO SCH (21:14)
[2019-08-17] MEDS: ATORVASTATIN CA 20 MG TABLET (FP) PO SCH (21:14)
[2019-08-18] MEDS: LORazepam 1 MG TABLET PO SCH ×2 (06:07→13:35)
[2019-08-18] MEDS: INSULIN SLIDING SCALE (NOVOLOG) 1 VIAL SQ SCH ×2 (06:34→11:22)
[2019-08-18] MEDS: FERROUS SO4 325 MG TABLET (FP) PO SCH (09:18)
[2019-08-18] MEDS: ASCORBIC ACID 500 MG TABLET (FP) PO SCH (09:18)
[2019-08-18] MEDS: cloNIDine HCL 0.1 MG TABLET PO SCH (09:18)
[2019-08-18] MEDS: FUROSEMIDE 40 MG/4 ML INJECTABLE VIAL IVPUSH SCH (09:18)
[2019-08-18] MEDS: BUDESONIDE/FORMETEROL FUMARATE 160/4.5 mcg INHALER IH SCH (09:19)
[2019-08-18] MEDS: FLUTICASONE PROP 0.05% 16 GM NASAL SPRAY NS SCH (09:19)
[2019-08-18] MEDS: amLODIPine BESYLATE 10 MG TABLET (FP) PO SCH (09:19)
[2019-08-18] MEDS: CEFTRIAXONE 1 G/50 ML PREMIX 50 ML IVPB SCH (09:19)
[2019-08-18] MEDS: PANTOPRAZOLE 40 MG TABLET PO SCH (09:20)
[2019-08-18] MEDS: ALBUTEROL SO4 2.5/IPRATROPIUM 0.5 INH SOL 3 ML VIAL.NEB. NEB SCH ×2 (09:25→12:15)
[2019-08-18] MEDS: guaiFENesin/D-METHORPHAN HB 10 ML UNIT-DOSE CUPS PO PRN (09:46)
[2019-08-18] MEDS ORDERED: methylPREDNISolone NA SUCC 40 MG/1 ML VIAL IVPUSH SCH (10:00)
[2019-08-18] MEDS: AZITHROMYCIN IVPB 500 MG/250 ML BAG IVPB SCH (10:12)
--- NOTE | 2019-08-18 13:52 | DS ---
Documentation entered by Mary Wright SCRIBE, acting as scribe for Krystina Mobley NP. Physical Exam: SUBJECTIVE: Patient seen and examined at bedside. OBJECTIVE: Vital Signs Period Temp Pulse Resp BP Sys/Walter Pulse Ox Last 24 Hr 97.4 F-99.3 F 79-92 16-19 115-125/52-59 91-98 PHYSICAL EXAM GENERAL: The patient is awake, alert, and fully oriented, in no acute distress. LUNGS: Scattered wheezes, no ronchi, improved; cough improved HEART: Regular rate and rhythm, S1, S2 ABDOMEN: Soft, nontender, nondistended EXTREMITIES: 2+ pulses, warm, well-perfused, no edema. NEUROLOGICAL: Cranial nerves II through XII grossly intact. Normal speech, self- positions easily PSYCH: agitated when is in room LABS Laboratory Results - last 24 hr 08/13/19 08/17/19 08/17/19 19:44 07:20 07:20 WBC 24.0 H RBC 4.00 Hgb 8.5 L Hct 28.3 L MCV 70.8 L MCH 21.3 L MCHC 30.1 L RDW 25.9 H Plt Count 410 MPV 9.3 Absolute Neuts (auto) 21.6 Neutrophils % 89.6 H Lymphocytes % 7.7 L Monocytes % 2.6 L Eosinophils % 0.0 Basophils % 0.1 Sodium 131 L Potassium 4.2 Chloride 103 Carbon Dioxide 23 Anion Gap 5 L BUN 19.0 H Creatinine 0.8 Est GFR (CKD-EPI)AfAm 105.64 Est GFR (CKD-EPI)NonAf 91.15 POC Glucometer Random Glucose 129 H Calcium 7.8 L Magnesium 2.3 Total Bilirubin 0.6 AST 31 ALT 43 Alkaline Phosphatase 56 Total Protein 5.7 L Albumin 2.6 L Blood Type B POSITIVE Antibody Screen Negative Crossmatch See Detail 08/17/19 08/17/19 08/18/19 11:38 16:59 06:15 WBC RBC Hgb Hct MCV MCH MCHC RDW Plt Count MPV Absolute Neuts (auto) Neutrophils % Lymphocytes % Monocytes % Eosinophils % Basophils % Sodium Potassium Chloride Carbon Dioxide Anion Gap BUN Creatinine Est GFR (CKD-EPI)AfAm Est GFR (CKD-EPI)NonAf POC Glucometer 224 112 149 Random Glucose Calcium Magnesium Total Bilirubin AST ALT Alkaline Phosphatase Total Protein Albumin Blood Type Antibody Screen Crossmatch HOSPITAL COURSE: Date of Admission:08/13/19 Date of Discharge: 08/18/19 Pre-Hospital Course 68 year-old male with a PMH significant for HTN, HLD, COPD, recurrent pneumoina , TBI and bipolar disorder. Admitted for pneumonia and severe anemia. BIBA from home c/o worsening sob with fever and cough x 1 day. Albuterol provided no relief, temp of 101 reported. EMS administered 2 duonebs and IV decadron. ED Course ER course was notable for: (1) WBC 13.8, lactic acid 2.4 (2) Hgb 5.5/20, PLT 349, Stool OB negative (3) Influenza negative (4) CXR: bibasilar infiltrates Subsequent Hospital Course 68 year-old male with a PMH significant for HTN, HLD, COPD, recurrent pneumoina , TBI, and bipolar disorder. Admitted for pneumonia and severe anemia. Now with newly diagnosed diastolic dysfunction. Severe sepsis secondary to community-acquired pneumonia --WBC 13.8K, p102, bibasilar infiltrates on CXR, lactic acid 2.4 on admission --rapid flu negative --treated with ceftriaxone x 5 days, azithro x 5 days; continue augmentin for an additional 5 days upon discharge --treated with IV steroids, discharged on slow PO taper Iron-deficiency anemia --Hgb 5.5 on admission, transfused 3U, now 8.5 --had previously been on iron supplements at home, non-compliant; no previous transfusions --occult stool negative --seen and evaluated by GI, recommends EGD/colon when more stable --gave one dose venofer on 08/17, patient refused second dose on 08/18 --will need outpatient follow up with GI and heme Hypertension --BP stable --continued clonidine, amlodipine Hyperlipidemia --continued Lipitor Bipolar disorder --continued doxepin, lorazepam Minutes to complete discharge: 35 Discharge Summary Problems reviewed: Yes Reason For Visit: ACUTE BRONCHITIS WITH COPD Current Active Problems Anemia (Acute) COPD exacerbation (Acute) Pneumonia (Acute) Condition: Guarded - Instructions - Home Medications Comprehensive Discharge Medication List: Ambulatory Orders Amlodipine Besylate [Norvasc -] 10 mg PO DAILY 12/24/11 Budesonide/Formeterol Fumarate [SYMBICORT 80/4.5mcg -] 1 inh PO BID 01/21/19 Sennosides [Senna -] 2 tab PO HS PRN tablet 04/27/19 Tamsulosin HCl [Flomax -] 0.4 mg PO HS cap.er.24h 04/27/19 Simvastatin 20 mg PO HS 08/13/19 Aspirin [Aspirin EC] 81 mg PO DAILY 08/14/19 Dextroamphetamine/Amphetamine [Adderall Xr 20 mg Capsule] 20 mg PO TID 08/14/19 Doxepin HCl [Sinequan -] 150 mg PO HS 08/14/19 LORazepam [Lorazepam] 2 mg PO TID 08/14/19 cloNIDine HCL [Catapres -] 0.3 mg PO BID 08/14/19 This patient is new to me today: No Emergency Visit: Yes ED Registration Date: 08/13/19 Care time: The patient presented to the Emergency Department on the above date and was hospitalized for further evaluation of their emergent condition. Critical Care patient: No - Discharge Referral Referred to [facility].: Krystina Keys, FOOD SERVICE HELPER: This documentation has been prepared by the Kyle dodge Maria, SCRIBE, under my direction and personally reviewed by me in its entirety. I confirm that the documentation accurately reflects all work, treatment, procedures, and medical decision making performed by me.
[2019-08-18] MEDS ORDERED: IRON SUCROSE INJECTION 200 MG in SODIUM CHLORIDE 90 ML IVPB ONE (14:00)
[2019-08-18 14:21] VITALS: BP 122/54; PULSE 83; TEMP 97.7
== END 2019-08-18 14:27 | disposition home or self-care (01) | DRG 871 ==
LOC: FER 18:30 → FM/S 20:20
PROVIDERS: ADMIT Internal Medicine; ATTEND Nurse Practitioner Acute Care
PROC: 30233N1 Transfusion of Nonautologous Red Blood Cells into Peripheral Vein, Percutaneous Approach (ICD-10-PCS; principal; 2019-08-13)
DX: A41.9 Sepsis, unspecified organism (principal); J18.9 Pneumonia, unspecified organism; J96.01 Acute respiratory failure with hypoxia; E87.2 Acidosis; J44.1 Chronic obstructive pulmonary disease with (acute) exacerbation; I10 Essential (primary) hypertension; F98.8 Other specified behavioral and emotional disorders with onset usually occurring in childhood and adolescence; Z87.820 Personal history of traumatic brain injury; E78.5 Hyperlipidemia, unspecified; D50.9 Iron deficiency anemia, unspecified; F31.9 Bipolar disorder, unspecified; J20.9 Acute bronchitis, unspecified; I48.91 Unspecified atrial fibrillation; I25.10 Atherosclerotic heart disease of native coronary artery without angina pectoris; N40.0 Benign prostatic hyperplasia without lower urinary tract symptoms; F41.8 Other specified anxiety disorders
CPT/HCPCS: 36415; 36430; 36511; 71045-TC-FY; 80048; 80053; 82272; 82550; 82728; 82803; 82962; 83036; 83540; 83550; 83605; 83735; 84443; 84484; 85025; 85027; 85610; 86850; 86900; 86901; 86922; 87040; 87070; 87086; 87205; 87633; 87804; 87899; 93005; 93306-TC; 94640; 99285-25; J0735; J1644; J1756; J7030; P9038; P9058

== ENCOUNTER 2019-08-22 19:37 | Inpatient (IN) | payer OTHER, MEDICARE ==
[2019-08-22] MEDS ORDERED: ACETAMINOPHEN 1000 MG/100 ML VIAL (NON FORMULARY) IVPB ONE (20:28)
[2019-08-22] MEDS ORDERED: SODIUM CHLORIDE IV ONE (20:32)
--- NOTE | 2019-08-22 20:45 | PDOC ---
History of Present Illness - General Chief Complaint: Chest Pain Stated Complaint: FEVER Time Seen by Provider: 08/22/19 20:15 - History of Present Illness Initial Comments: 08/22/19 21:04 Pt is a 68y/o male with COPD (not on home O2), recurrent PNA (recent visit 08/13- 08/18), a-fib, HTN, bipolar disorder, and TBI who presents with cough and body aches. He was sent home with Augmentin on 08/18. He reports productive cough but is unsure what color sputum is. He reports being able to eat and drink. Last admission pt was anemic at 5.4 and improved after 3 units PRBCs. Past History - Past Medical History Allergies/Adverse Reactions: Allergies Allergy/AdvReac Type Severity Reaction Status Date / Time alprazolam [From Xanax] AdvReac Intermediate Verified 05/21/19 17:35 gatifloxacin [From Tequin] AdvReac Intermediate DIARRHEA Verified 05/21/19 17:35 lamotrigine [From Lamictal] AdvReac Intermediate Verified 05/21/19 17:35 quetiapine fumarate AdvReac Intermediate DIZZINESS, Verified 05/21/19 17:35 [From Seroquel] NIGHTMARES zolpidem tartrate AdvReac Mild DEPRESSION, Verified 05/21/19 17:35 [From Ambien] DISORIENTED nickel AdvReac Verified 05/21/19 17:35 trazodone AdvReac Verified 05/21/19 17:35 Home Medications: Ambulatory Orders Amlodipine Besylate [Norvasc -] 10 mg PO DAILY 12/24/11 Budesonide/Formeterol Fumarate [SYMBICORT 80/4.5mcg -] 1 inh PO BID 01/21/19 Sennosides [Senna -] 2 tab PO HS PRN tablet 04/27/19 Tamsulosin HCl [Flomax -] 0.4 mg PO HS cap.er.24h 04/27/19 Simvastatin 20 mg PO HS 08/13/19 Aspirin [Aspirin EC] 81 mg PO DAILY 08/14/19 Dextroamphetamine/Amphetamine [Adderall Xr 20 mg Capsule] 20 mg PO TID 08/14/19 Doxepin HCl [Sinequan -] 150 mg PO HS 08/14/19 LORazepam [Lorazepam] 2 mg PO TID 08/14/19 cloNIDine HCL [Catapres -] 0.3 mg PO BID 08/14/19 Amoxicillin/Potassium Clav [Augmentin 875-125 Tablet] 1 each PO BID #10 tablet 08/18/19 Doxepin HCl [Sinequan -] 175 mg PO HS capsule 08/18/19 predniSONE [Deltasone -] 10 mg PO ASDIR #42 tablet 08/18/19 Anemia: No Asthma: Yes Cancer: No Cardiac Disorders: Yes (AFIB) CVA: No COPD: No CHF: No Dementia: No Diabetes: No GI Disorders: Yes (GERD) Disorders: No HTN: Yes Hypercholesterolemia: Yes Liver Disease: No Psychiatric Problems: Yes (ADD) Seizures: No Thyroid Disease: No - Surgical History Abdominal Surgery: No Appendectomy: No Cardiac Surgery: No Cholecystectomy: No Lung Surgery: No Neurologic Surgery: No Orthopedic Surgery: Yes (LT SHOULDER SX) - Immunization History Immunization Up to Date: Yes - Psycho Social/Smoking Cessation Hx Smoking Status: No Smoking History: Never smoked Have you smoked in the past 12 months: No Number of Cigarettes Smoked Daily: 0 If you are a former smoker, when did you quit?: [employer] Information on smoking cessation initiated: No 'Breaking Loose' booklet given: 06/07/16 Hx Alcohol Use: No Drug/Substance Use Hx: No Substance Use Type: None Hx Substance Use Treatment: No Review of Systems - Review of Systems Constitutional: Yes: Chills, Fever Respiratory: Yes: Cough, Shortness of Breath. No: Wheezing Cardiac (ROS): Yes: Chest Pain ABD/GI: No: Symptoms Reported, Nausea, Vomiting Musculoskeletal: Yes: Muscle Pain Neurological: Yes: Headache *Physical Exam - Vital Signs Last Vital Signs Temp Pulse Resp BP Pulse Ox 103.7 F H 100 H 20 159/81 94 L 08/22/19 19:59 08/22/19 19:59 08/22/19 19:59 08/22/19 19:59 08/22/19 19:59 - Physical Exam General Appearance: Yes: Nourished, Mild Distress HEENT: positive: EOMI, SEGUNDO Neck: positive: Trachea midline Respiratory/Chest: positive: Labored Respiration, Wheezing (left lower lobe,) Cardiovascular: positive: Regular Rhythm, Regular Rate. negative: Murmur Gastrointestinal/Abdominal: positive: Normal Bowel Sounds. negative: Tender Neurologic: positive: Alert, Normal Mood/Affect ED Treatment Course - LABORATORY CBC & Chemistry Diagram: 08/22/19 21:49 08/22/19 21:49 - RADIOLOGY Radiology Studies Ordered: Category Date Time Status CXRPORT [CHEST X-RAY PORTABLE*] [RAD] Stat Radiology 08/22/19 20:29 Ordered Medical Decision Making - Medical Decision Making 08/23/19 00:56 Pt is a 68y/o male with COPD (not on home O2), recurrent PNA (recent visit 08/13- 08/18), a-fib, HTN, bipolar disorder, and TBI who presents with cough and body aches. He was sent home with Augmentin on 08/18 after completing 5 days of ceftriaxone and azithromycin. flu A positive leukocytosis 18.2 Hb improved 11 CXR- Diffuse infiltrates b/l bases less prominent compared to 08/13/19 temp 103 IV Ofirmev temp repeat 98.1 O2 89-94 RA, labored breathing Ativan 2mg x1 for agitation recurrent PNA with influenza A refused EKG Discharge - Discharge Information Problems reviewed: Yes Clinical Impression/Diagnosis: Influenza A, COPD with acute bronchitis - Admission Yes - Follow up/Referral - Patient Discharge Instructions - Post Discharge Activity
[2019-08-22] MEDS ORDERED: ALBUTEROL SO4 2.5/IPRATROPIUM 0.5 INH SOL 3 ML VIAL.NEB. NEB ONE ×2 (20:54→21:55)
--- NOTE | 2019-08-22 21:15 | PDOC ---
Documentation entered by Partha Lozano SCRIBE, acting as scribe for Danyell Joya MD. Danyell Joya MD: This documentation has been prepared by the Marta dodge Xhesika, SCRIBE, under my direction and personally reviewed by me in its entirety. I confirm that the documentation accurately reflects all work, treatment, procedures, and medical decision making performed by me. Attending Attestation - Resident Resident Name: Blanche Irizarry - ED Attending Attestation I have performed the following: I have examined & evaluated the patient, The case was reviewed & discussed with the resident, I agree w/resident's findings & plan, Exceptions are as noted - HPI HPI: 08/22/19 21:05 The patient is a 68 year old male with a significant past medical history of COPD, recurrent pneumonia, HTN and HLD who presents to the ED, via EMS, with 5 days of body aches, fever and productive cough. Pt was seen here on 08/13/2019 treated for PNA and d/c home on 08/18/2019. Pt states he is currently on Augmentin and symptoms are progressively getting worse, prompting his arrival to the ED. Surgical hx: Orthopedic shoulder surgery, sinus surgery PCP: Vale Beatty - Physicial Exam PE: 08/22/19 21:06 GENERAL: Awake, alert, and conversant with cough and fever HEAD: No signs of trauma ENT: +dry mucosa membranes NECK: no nuchal rigidity LUNGS: +wheezing HEART: +tachy. ABDOMEN: Soft, nontender, normoactive bowel sounds. No guarding, no rebound. No masses EXTREMITIES: no edema NEUROLOGICAL: conversant and moving extremties SKIN: Warm, Dry 08/22/19 21:12 08/22/19 21:12 - Medical Decision Making 08/23/19 00:23 Influenza swab positive for influenza This 68-year-old male has been admitted to our hospital from August 13 August 18 for COPD exacerbation Past medical history TBI, coronary artery disease, A. fib, BPH, anemia, COPD He has been diagnosed with pneumonia on his last admission and was discharged on antibiotics On presentation CVS tachycardic, with a temperature of 103.7 impression influenza A, requiring oxygen supplementation 08/23/19 00:25
[2019-08-22] MEDS ORDERED: ACETAMINOPHEN INJECTION 100 ML IVPB ONE (21:56)
[2019-08-22 22:09] LABS: VENOUS PC02 32.3 mmHg (38-52); VENOUS PH 7.51 (7.31-7.41); VENOUS PO2 63.9 mmHg (28-48)
[2019-08-22 22:28] LABS: INR 1.11 (0.83-1.09); PROTHROMBIN TIME (PATIENT) 13.1 SEC (9.7-13.0)
[2019-08-22 22:31] LABS: ACTIVATED PTT 25.2 SECONDS (25.2-36.5)
[2019-08-22 22:43] LABS: ALBUMIN 3.1 g/dl (3.4-5.0); ALK PHOS 93 U/L (45-117); ANION GAP 9 MMOL/L (8-16); BASO % 0.6 % (0-2.0); BILIRUBIN,TOTAL 0.5 mg/dL (0.2-1); BLOOD UREA NITROGEN 15.3 mg/dL (7-18); CALCIUM 8.5 mg/dL (8.5-10.1); CHLORIDE 102 mmol/L (98-107); CO2 25 mmol/L (21-32); EOS % 1.3 % (0-4.5); GLUCOSE,RANDOM 98 mg/dL (74-106); HEMATOCRIT 40.3 % (35.4-49); HEMOGLOBIN 11.9 GM/dL (11.7-16.9); LYMPH % 11.9 % (8-40); MCH 20.6 pg (25.7-33.7); MCHC 29.4 g/dl (32.0-35.9); MEAN CELL VOLUME 70.1 fl (80-96); MEAN PLT VOLUME 9.1 fl (7.5-11.1); MONO % 8.6 % (3.8-10.2); NEUT % 77.6 % (42.8-82.8); PLATELET COUNT 376 K/MM3 (134-434); POTASSIUM 5.1 mmol/L (3.5-5.1); RBC 5.76 M/mm3 (4.00-5.60); RDW 31.6 % (11.9-15.9); SGOT/AST 72 U/L (15-37); SGPT/ALT 112 U/L (13-61); SODIUM 135 mmol/L (136-145); WHITE BLOOD COUNT 18.2 K/mm3 (4.0-10.0)
[2019-08-22 23:20] LABS: ANISOCYTOSIS 3+; OVALOCYTE FEW
[2019-08-23] MEDS ORDERED: LORazepam 2 MG TABLET PO ONE (01:23)
--- NOTE | 2019-08-23 01:47 | HP ---
CHIEF COMPLAINT: SOB and a productive cough, along with left sided back/flank pain for the past 4 days PCP: Dr. Lujan HISTORY OF PRESENT ILLNESS: This is a 68 year old male with PMH significant for COPD, AFib, HTN, traumatic brain injury (TBI), and Bipolar disorder. He was AOx2 during examination and appeared to be somnolent, and struggled to answer questions in detail. He presented to the ER with complaints of SOB and a productive cough, along with left sided back/flank pain for the past 4 days. He states that the pain was sudden in onset, with no identifiable inciting events, 9/10 in intensity, constant in nature, sharp in quality, non-radiating, with no aggravating or alleviating factors. He was unable to describe his sputum, and states that he has had SOB for the past several days. Most recently he was admitted to [facility] from 08/13 to 08/18 for pneumonia and anemia (H/H of 5.5/20). He was treated with Ceftriaxone, Azithromycin, and Solu- Medrol, and was discharged on Augmentin and a Prednisone taper. He was also administered 3 Units PRBC and Venofer once for his anemia. His FOBT was negative , and GI recommended outpatient F/U for EGD/Colonoscopy. His echo at the time showed normal LVEF and RV function with no hemodynamically significant . ER course was notable for: (1) WBC 18.2 (2) Flu A positive, Tamiflu started (3) CXR: B/L multifocal infiltration Recent Travel: denies PAST MEDICAL HISTORY: As stated in HPI PAST SURGICAL HISTORY: Social History: Smoking: denies Alcohol: denies Drugs: denies Allergies alprazolam [From Xanax] Adverse Reaction (Intermediate, Verified 05/21/19 17:35) nightmares gatifloxacin [From Tequin] Adverse Reaction (Intermediate, Verified 05/21/19 17: 35) DIARRHEA lamotrigine [From Lamictal] Adverse Reaction (Intermediate, Verified 05/21/19 17 :35) quetiapine fumarate [From Seroquel] Adverse Reaction (Intermediate, Verified 17:35) DIZZINESS, NIGHTMARES zolpidem tartrate [From Ambien] Adverse Reaction (Mild, Verified 05/21/19 17:35) DEPRESSION, DISORIENTED nickel Adverse Reaction (Verified 05/21/19 17:35) trazodone Adverse Reaction (Verified 05/21/19 17:35) HALLUCINATIONS HOME MEDICATIONS: Home Medications Medication Instructions Recorded Amlodipine Besylate [Norvasc -] 10 mg PO DAILY 12/24/11 Budesonide/Formeterol Fumarate 1 inh PO BID 01/21/19 [SYMBICORT 80/4.5mcg -] Sennosides [Senna -] 2 tab PO HS PRN tablet 04/27/19 Tamsulosin HCl [Flomax -] 0.4 mg PO HS cap.er.24h 04/27/19 Simvastatin 20 mg PO HS 08/13/19 Aspirin [Aspirin EC] 81 mg PO DAILY 08/14/19 Dextroamphetamine/Amphetamine 20 mg PO TID 08/14/19 [Adderall Xr 20 mg Capsule] Doxepin HCl [Sinequan -] 150 mg PO HS 08/14/19 LORazepam [Lorazepam] 2 mg PO TID 08/14/19 cloNIDine HCL [Catapres -] 0.3 mg PO BID 08/14/19 Amoxicillin/Potassium Clav 1 each PO BID #10 tablet 08/18/19 [Augmentin 875-125 Tablet] Doxepin HCl [Sinequan -] 175 mg PO HS capsule 08/18/19 predniSONE [Deltasone -] 10 mg PO ASDIR #42 tablet 08/18/19 REVIEW OF SYSTEMS CONSTITUTIONAL: Absent: fever, chills, diaphoresis, generalized weakness, malaise, loss of appetite, weight change HEENT: Absent: rhinorrhea, nasal congestion, throat pain, throat swelling, difficulty swallowing, mouth swelling, ear pain, eye pain, visual changes CARDIOVASCULAR: Absent: chest pain, syncope, palpitations, irregular heart rate, lightheadedness , peripheral edema RESPIRATORY: SOB, cough Absent: cough, shortness of breath, dyspnea with exertion, orthopnea, wheezing, stridor, hemoptysis GASTROINTESTINAL: Absent: abdominal pain, abdominal distension, nausea, vomiting, diarrhea, constipation, melena, hematochezia GENITOURINARY: flank pain Absent: dysuria, frequency, urgency, hesitancy, hematuria, flank pain, genital pain MUSCULOSKELETAL: Absent: myalgia, arthralgia, joint swelling, back pain, neck pain SKIN: Absent: rash, itching, pallor HEMATOLOGIC/IMMUNOLOGIC: Absent: easy bleeding, easy bruising, lymphadenopathy, frequent infections ENDOCRINE: Absent: unexplained weight gain, unexplained weight loss, heat intolerance, cold intolerance NEUROLOGIC: Headache Absent: headache, focal weakness or paresthesias, dizziness, unsteady gait, seizure, mental status changes, bladder or bowel incontinence PSYCHIATRIC: Absent: anxiety, depression, suicidal or homicidal ideation, hallucinations. PHYSICAL EXAMINATION Vital Signs - 24 hr 08/22/19 19:59 Temperature 103.7 F H Pulse Rate 100 H Respiratory 20 Rate Blood Pressure 159/81 O2 Sat by Pulse 94 L Oximetry (%) GENERAL: AOx2 HEAD: Normal with no signs of trauma. EYES: Pupils equal, round and reactive to light, extraocular movements intact, sclera anicteric, conjunctiva clear. No lid lag. EARS, NOSE, THROAT: Ears normal, nares patent, oropharynx clear without exudates. DRY tongue and mucous membranes. NECK: Normal range of motion, supple without lymphadenopathy, JVD, or masses. LUNGS: Coarse crackles B/L HEART: Tachycardic, regular rhythm, normal S1 and S2 without murmur, rub or gallop ABDOMEN: Soft, nontender, not distended, normoactive bowel sounds, no guarding, Left sided CVA tenderness. Refuses digital rectal exam MUSCULOSKELETAL: Normal range of motion at all joints. No bony deformities or tenderness. No CVA tenderness. UPPER EXTREMITIES: 2+ pulses, warm, well-perfused. No cyanosis. No clubbing. No peripheral edema. LOWER EXTREMITIES: 2+ pulses, warm, well-perfused. No calf tenderness. No peripheral edema. NEUROLOGICAL: Motor 5/5, sensations intact PSYCHIATRIC: Somnolent but cooperative Laboratory Results - last 24 hr 08/22/19 08/22/19 08/22/19 21:49 21:49 21:49 WBC RBC Hgb Hct MCV MCH MCHC RDW Plt Count MPV Absolute Neuts (auto) Neutrophils % Lymphocytes % Monocytes % Eosinophils % Basophils % Nucleated RBC % Hypochromia Anisocytosis Ovalocytes PT with INR 13.10 H INR 1.11 H PTT (Actin FS) 25.2 VBG pH 7.51 H POC VBG pCO2 32.3 L POC VBG pO2 63.9 H VBG HCO3 25.7 VBG O2 Sat (Laura) 93.2 H VBG Base Excess 3.3 H Sodium Potassium Chloride Carbon Dioxide Anion Gap BUN Creatinine Est GFR (CKD-EPI)AfAm Est GFR (CKD-EPI)NonAf Random Glucose Lactic Acid 2.0 Calcium Total Bilirubin AST ALT Alkaline Phosphatase Troponin I Total Protein Albumin Influenza A (Rapid) Influenza B (Rapid) 08/22/19 08/22/19 08/22/19 21:49 21:49 22:12 WBC 18.2 H RBC 5.76 H Hgb 11.9 Hct 40.3 D MCV 70.1 L MCH 20.6 L MCHC 29.4 L RDW 31.6 H Plt Count 376 D MPV 9.1 Absolute Neuts (auto) 14.1 H Neutrophils % 77.6 D Lymphocytes % 11.9 D Monocytes % 8.6 Eosinophils % 1.3 Basophils % 0.6 Nucleated RBC % 0 Hypochromia 2+ Anisocytosis 3+ Ovalocytes Few PT with INR INR PTT (Actin FS) VBG pH POC VBG pCO2 POC VBG pO2 VBG HCO3 VBG O2 Sat (Laura) VBG Base Excess Sodium 135 L Potassium 5.1 Chloride 102 Carbon Dioxide 25 Anion Gap 9 BUN 15.3 Creatinine 1.0 Est GFR (CKD-EPI)AfAm 88.61 Est GFR (CKD-EPI)NonAf 76.45 Random Glucose 98 Lactic Acid Calcium 8.5 Total Bilirubin 0.5 AST 72 H ALT 112 H Alkaline Phosphatase 93 Troponin I < 0.02 Total Protein 7.0 Albumin 3.1 L Influenza A (Rapid) Positive A Influenza B (Rapid) Negative ASSESSMENT/PLAN: 68M with PMH of COPD, AFib, HTN, traumatic brain injury (TBI), and Bipolar disorder presented to the ER with SOB and a productive cough, along with left sided back/flank pain for the past 4 days #Sepsis 2/2 HAP with Influenza A - WBC 18.2, Temp 103.7 - CXR: B/L multifocal infiltration - CT Chest with contrast ordered to check for abscess - Started on Cefepime 1g Q8H and Vanco 1g Q12 - Started on Tamiflu 75mg BID for positive Influenza A - Toradol 30mg Q6H for pain - Venti Mask @ 40% - Blood, sputum cx, Urine for Legionella antige ordered and respiratory panel ordered - VBG: pH 7.51, CO2 32, O2 64, Bicarb 25.7, ABG ordered on Venti - N/S 2.5L given in ER, 1L bolus given again and started on N/S @ 125 - Droplet isolation precaution - ID consulted (Dr. Montanez) #Suspected UTI - Patient complaining of back/flank pain with CVA tenderness on examination, but no c/o dysuria, hematuria - UA pending, UCx ordered - Renal US ordered #Hx of anemia - Last admission from Aug 13 to : H/H was 5.5/20, 3xPRBC, Venoferx1, FOBT -, GI recommended outpatient F/U for EGD/Colonoscopy - Current H/H 11.9/40.3 with MCV 70, borderline anemic, will monitor H/H - Oral Iron home med continued #Transaminitis - AST 72, ALT 112 - Liver US ordered #Hx of AFib - As per chart review from previous visit, pt refused AC #Hx of COPD - Resumed home meds Symbicort and Ventolin inhaler for now, need to be confirmed by pharmacy #Hx of HTN - Resumed home meds Amlodipine and Clonidine for now, need to be confirmed by pharmacy #Hx of HLD - Resumed home med Lipitor for now, need to be confirmed by pharmacy #Hx of BPH - Restarted on Flomax for now, needs to be confirmed by pharmacy #Hx of psychiatric illness (Bipolar disorder) - Resumed home meds Doxepin and Lorazepam for now and holding Adderall (as per chart review from previous visit, pt was advised to stop since it may worsen bipolar disorder), need to be confirmed by pharmacy #FEN - N/S 2.5L given in ER, 1L bolus given again and started on N/S @ 125 - Low albumin, dietary consult placed #DVT - SCDs for now, will monitor H/H to make sure pt not bleeding Visit type - Emergency Visit Emergency Visit: Yes ED Registration Date: 08/23/19 Care time: The patient presented to the Emergency Department on the above date and was hospitalized for further evaluation of their emergent condition. - New Patient This patient is new to me today: Yes Date on this admission: 08/25/19 - Critical Care Critical Care patient: No ATTENDING PHYSICIAN STATEMENT I saw and evaluated the patient. I reviewed the resident's note and discussed the case with the resident. I agree with the resident's findings and plan as documented. SUBJECTIVE: OBJECTIVE: ASSESSMENT AND PLAN:
[2019-08-23] MEDS ORDERED: LORazepam 0.5 MG TABLET ONE (02:09)
[2019-08-23] MEDS ORDERED: OSELTAMIVIR PHOSPHATE 75 MG CAPSULE ONE (02:09)
[2019-08-23] MEDS ORDERED: KETOROLAC TROMETHAMINE 30 MG/1 ML VIAL IVPUSH ONE (02:09)
[2019-08-23] MEDS ORDERED: KETOROLAC TROMETHAMINE 30 MG/1 ML VIAL ONE (02:09)
[2019-08-23] MEDS ORDERED: SODIUM CHLORIDE 1,000 ML IV STA (02:12)
[2019-08-23] MEDS: OSELTAMIVIR PHOSPHATE 75 MG CAPSULE PO SCH ×3 (02:21→21:58)
[2019-08-23] MEDS ORDERED: SENNOSIDES 8.6MG TABLET (FP) PO PRN (02:33)
[2019-08-23] MEDS ORDERED: ALBUTEROL SO4 8 GM HFA INHALER IH PRN (02:33)
[2019-08-23] MEDS ORDERED: KETOROLAC TROMETHAMINE 30 MG/1 ML VIAL IVPUSH PRN (02:46)
[2019-08-23] MEDS ORDERED: SODIUM CHLORIDE 1,000 ML IV SCH (03:00)
[2019-08-23] MEDS ORDERED: VANCOMYCIN 1 GRAM (PRE-DOCKED) 1,000 MG/250 ML BAG IVPB ONE ×2 (03:00→03:51)
[2019-08-23] MEDS ORDERED: VANCOMYCIN 1 GM PREMIX - 1 GM/200 ML BAG IVPB SCH ×2 (03:00→06:30)
[2019-08-23] MEDS ORDERED: CEFEPIME 1 GM in DEXTROSE 5%-WATER - 50 ML IVPB ONE (03:00)
[2019-08-23] MEDS ORDERED: CEFEPIME 1 GM/100 ML BAG IVPB ONE (03:52)
--- NOTE | 2019-08-23 04:42 | PN ---
Teaching Attending Note Name of Resident: Ayo Horta ATTENDING PHYSICIAN STATEMENT I saw and evaluated the patient. I reviewed the resident's note and discussed the case with the resident. I agree with the resident's findings and plan as documented. SUBJECTIVE: 68yo male with h/o HTN, hyperlipidemia, COPD, bronchiectasis, CAD, atrial fibrillation, BPH, anxiety, h/o TBI Presents with fever, cough, shortness of breath, lower back pain for about 1 to 2 days. Patient recently treated for pneumonia, hospitalized 08/13 to 08/18, discharged on 08/18 with Augmentin to complete his course of treatment. Here in the emergency room he was found to have flu a positive on flu swab OBJECTIVE: Last Vital Signs Temp Pulse Resp BP Pulse Ox 103.7 F H 78 18 117/66 93 L 08/22/19 19:59 08/23/19 04:07 08/23/19 04:07 08/23/19 04:07 08/23/19 04:07 GENERAL: Well developed, Appears in distress, complaining of severe lumbar pain HEENT: Normocephalic, atraumatic. PERRLA, EOMI. No conjunctival pallor. Sclera are non- icteric. Dry mucous membranesr. NECK: Supple. Full ROM. No JVD. Carotid pulses 2+ and symmetric, without bruits. No thyromegaly. No lymphadenopathy. CARDIOVASCULAR: Regular rate and rhythm. No murmurs, rubs, or gallops. Distal pulses are 2+ and symmetric. PULMONARY: No evidence of respiratory distress. Lungs clear to auscultation bilaterally. Rhonchi appreciated bilaterally, Bibasilar rales ABDOMINAL: Soft. Non-tender. Non-distended. No rebound or guarding. No organomegaly. Normoactive bowel sounds. MUSCULOSKELETAL Normal range of motion at all joints. Perispinal Lumbar tenderness appreciated on palpation, no midline spine tenderness EXTREMITIES: No cyanosis. No clubbing. No edema. No calf tenderness. SKIN: Warm and dry. Normal capillary refill. No rashes. No jaundice. PSYCHIATRIC: Cooperative. Good eye contact. Appropriate mood and affect. Abnormal Lab Results 08/22/19 08/22/19 08/22/19 21:49 21:49 21:49 WBC RBC MCV MCH MCHC RDW Absolute Neuts (auto) PT with INR 13.10 H INR 1.11 H VBG pH 7.51 H POC VBG pCO2 32.3 L POC VBG pO2 63.9 H VBG O2 Sat (Laura) 93.2 H VBG Base Excess 3.3 H Sodium 135 L AST 72 H ALT 112 H Albumin 3.1 L Influenza A (Rapid) 08/22/19 08/22/19 21:49 22:12 WBC 18.2 H RBC 5.76 H MCV 70.1 L MCH 20.6 L MCHC 29.4 L RDW 31.6 H Absolute Neuts (auto) 14.1 H PT with INR INR VBG pH POC VBG pCO2 POC VBG pO2 VBG O2 Sat (Laura) VBG Base Excess Sodium AST ALT Albumin Influenza A (Rapid) Positive A Imaging studies reviewed Chest x-ray positive for multifocal infiltrates ASSESSMENT AND PLAN: 68-year-old male with Severesepsis likely secondary to hospital-acquired pneumonia, chest x-ray positive for multifocal infiltrates.High fever, leukocytosis, tachycardia Acute influenza A infection. Possible superimposed bacterial pneumonia. Acute respiratory failure requiring oxygen supplementation. Found to be desaturating to 93 on 3 L nasal cannula. Admit to MedSurg Venturi mask 40% FiO2 Sputum culture Blood cultures Urine Legionella antigen Would obtain chest CT to rule out any loculated fluid collections, abscess Obtain ABG while on Venturi mask Cefepime 1 g IV every 8 hours, vancomycin 1 g every 12 Tamiflu 75 mg p.o. Infectious disease consultation Droplet precautions IV fluid hydration Ibuprofen as needed for musculoskeletal pain, likely secondary to underlying influenza Strict handwashing precautions single room #Transaminitis Liver sonogram #Hypoalbuminemia #Hypertension Continue with home dose clonidine, amlodipine #Hyperlipidemia Continue with home dose Lipitor #Bipolar disorder Continue doxepin, lorazepam #Iron deficiency anemiarequired transfusion on previous admission. Received Venofer on 08/17, 08/18 EGD/colonoscopy with GI as an outpatient Continue iron supplement
[2019-08-23] MEDS ORDERED: HALOPERIDOL LACTATE 5 MG/ML ONE (05:53)
[2019-08-23] MEDS ORDERED: PATIENT'S OWN MEDICATION (NON-FORMULARY) (Dextroamphetamine/Amphetamine [Adderall Xr 20 Mg PO SCH (06:00)
[2019-08-23] MEDS ORDERED: HALOPERIDOL LACTATE 5 MG/ML IM ONE (06:19)
--- NOTE | 2019-08-23 06:50 | PDOC ---
*Physical Exam - Vital Signs Last Vital Signs Temp Pulse Resp BP Pulse Ox 103.7 F H 78 18 117/66 93 L 08/22/19 19:59 08/23/19 04:07 08/23/19 04:07 08/23/19 04:07 08/23/19 04:07 ED Treatment Course - LABORATORY CBC & Chemistry Diagram: 08/22/19 21:49 08/22/19 21:49 - ADDITIONAL ORDERS Additional order review: Laboratory Results 08/22/19 08/22/19 08/22/19 21:49 21:49 21:49 PT with INR INR PTT (Actin FS) VBG pH 7.51 H POC VBG pCO2 32.3 L POC VBG pO2 63.9 H VBG HCO3 25.7 VBG O2 Sat (Laura) 93.2 H VBG Base Excess 3.3 H Sodium 135 L Potassium 5.1 Chloride 102 Carbon Dioxide 25 Anion Gap 9 BUN 15.3 Creatinine 1.0 Est GFR (CKD-EPI)AfAm 88.61 Est GFR (CKD-EPI)NonAf 76.45 Random Glucose 98 Lactic Acid 2.0 Calcium 8.5 Total Bilirubin 0.5 AST 72 H ALT 112 H Alkaline Phosphatase 93 Troponin I < 0.02 Total Protein 7.0 Albumin 3.1 L 08/22/19 21:49 PT with INR 13.10 H INR 1.11 H PTT (Actin FS) 25.2 VBG pH POC VBG pCO2 POC VBG pO2 VBG HCO3 VBG O2 Sat (Laura) VBG Base Excess Sodium Potassium Chloride Carbon Dioxide Anion Gap BUN Creatinine Est GFR (CKD-EPI)AfAm Est GFR (CKD-EPI)NonAf Random Glucose Lactic Acid Calcium Total Bilirubin AST ALT Alkaline Phosphatase Troponin I Total Protein Albumin 08/22/19 21:49 RBC 5.76 H MCV 70.1 L MCHC 29.4 L RDW 31.6 H MPV 9.1 Neutrophils % 77.6 D Lymphocytes % 11.9 D Monocytes % 8.6 Eosinophils % 1.3 Basophils % 0.6 - Medications Given in the ED: ED Medications Discontinued Medications Generic Name Dose Route Start Last Admin Trade Name Freq PRN Reason Stop Dose Admin Acetaminophen 1,000 mg 08/22/19 20:28 08/22/19 22:00 Ofirmev Injection - IVPB 08/22/19 20:29 1,000 mg ONCE ONE Administration Albuterol/Ipratropium 1 amp 08/22/19 20:54 08/22/19 22:00 Duoneb - NEB 08/22/19 20:55 1 amp ONCE ONE Administration Diphenhydramine HCl 50 mg 08/23/19 06:19 08/23/19 06:00 Benadryl Injection - IM 08/23/19 06:20 50 mg ONCE ONE Administration Haloperidol 5 mg 08/23/19 06:19 08/23/19 06:00 Haldol Injection (Fast Acting) - IM 08/23/19 06:20 5 mg ONCE ONE Administration Sodium Chloride 2,572 mls @ 1,286 mls/hr 08/22/19 20:32 08/22/19 21:52 Normal Saline - 30 ml/kg infuse over 2 hr (2572 ml) 08/22/19 22:31 1,286 mls/hr IV Administration ONCE ONE Sodium Chloride 1,000 mls @ 1,000 mls/hr 08/23/19 02:12 08/23/19 02:21 Normal Saline - IV 08/23/19 03:11 1,000 mls/hr ASDIR STA Administration Cefepime HCl 1 gm/ Dextrose 50 mls @ 100 mls/hr 08/23/19 03:00 08/23/19 03:04 IVPB 08/23/19 03:29 100 mls/hr ONCE ONE Administration Protocol Vancomycin HCl 1,000 mg in 250 mls @ 166.667 mls/hr 08/23/19 03:00 08/23/19 04:04 Vancomycin (Pre-Docked) IVPB 08/23/19 04:29 166.667 mls/hr ONCE ONE Administration Ketorolac Tromethamine 30 mg 08/23/19 02:09 08/23/19 02:21 Toradol Injection - IVPUSH 08/23/19 02:10 30 mg ONCE ONE Administration Lorazepam 2 mg 08/23/19 01:23 08/23/19 02:21 Ativan PO 08/23/19 01:24 2 mg ONCE ONE Administration Medical Decision Making - Medical Decision Making 08/23/19 06:48 Advised by admitting attending that patient who was still housed in the emergency department was becoming agitated, asked to intervene Security called for staff safety as patient was escalating demanding to make phone calls yet aggressive towards staff Patient given Haldol 5 mg and Benadryl 50 mg IM He is currently sleeping comfortably, on 2 L nasal cannula to maintain oxygen saturation above 90% Admitting team messaged to advise No injuries occurred Discharge - Discharge Information Problems reviewed: Yes Clinical Impression/Diagnosis: Influenza A, COPD with acute bronchitis - Follow up/Referral - Patient Discharge Instructions - Post Discharge Activity
[2019-08-23 06:53] LABS: ALLENS TEST POSITIVE
[2019-08-23 06:56] LABS: ARTERIAL BLD GAS O2 SATURATION 86.1 % (95-98); ARTERIAL BLOOD GAS BASE EXCESS 0.6 meq/l (-2-2); ARTERIAL BLOOD GAS PCO2 35.5 mmHg (35-45); ARTERIAL BLOOD GAS PO2 53.8 mmHg (80-100); ARTERIAL BLOOD GAS pH 7.45 (7.35-7.45)
[2019-08-23] MEDS: LORazepam 1 MG TABLET PO SCH ×3 (06:57→21:57)
[2019-08-23] MEDS ORDERED: CEFEPIME HCL/D5W 1 GM/50 ML BAG IVPB SCH (10:00)
[2019-08-23] MEDS ORDERED: BUDESONIDE/FORMETEROL FUMARATE 80/4.5 mcg INHALER IH SCH (10:00)
[2019-08-23] MEDS ORDERED: DEXTROSE 5%-WATER - 50 ML IVPB ONE (10:52)
[2019-08-23] MEDS ORDERED: CEFEPIME HCL 1 GM VIAL (RESTRICTED TO ID) ONE ×3 (10:52→17:35)
[2019-08-23] MEDS ORDERED: PT OWN MED DRAWER 7, Y5N ONE ×2 (10:52→21:19)
[2019-08-23] MEDS ORDERED: methylPREDNISolone NA SUCC 40 MG/1 ML VIAL IVPUSH SCH (11:00)
[2019-08-23] MEDS: cloNIDine HCL 0.1 MG TABLET PO SCH ×2 (11:02→21:50)
[2019-08-23] MEDS: TAMSULOSIN HCL 0.4 MG CAP PO SCH (11:02)
[2019-08-23] MEDS: ASPIRIN COATED 81 MG TABLET.EC PO SCH (11:03)
[2019-08-23] MEDS: FERROUS SO4 325 MG TABLET (FP) PO SCH (11:03)
[2019-08-23] MEDS: amLODIPine BESYLATE 10 MG TABLET (FP) PO SCH (11:03)
--- NOTE | 2019-08-23 11:28 | PN ---
Progress Note (short form) - Note Progress Note: ID CONSULT DICTATED INFLUENZA A R/O HOSP ACQUIRED PNEUMONIA COPD EXACERBATION LEUKOCYTOSIS ? STEROID INDUCED AWAIT C/S CT CHEST EMPIRIC VANCOMYCIN/ CEFEPIME TAMIFLU
[2019-08-23] MEDS: CEFEPIME 1 GM in DEXTROSE 5%-WATER - 50 ML IVPB SCH ×2 (11:47→19:17)
--- NOTE | 2019-08-23 11:57 | EKG ---
Test Reason : Blood Pressure : / mmHG Vent. Rate : 085 BPM Atrial Rate : 085 BPM P-R Int : 118 ms QRS Dur : 088 ms QT Int : 366 ms P-R-T Axes : 062 -08 051 degrees QTc Int : 435 ms NORMAL SINUS RHYTHM BIATRIAL ENLARGEMENT NONSPECIFIC ST ABNORMALITY ABNORMAL ECG Confirmed by MD XOCHITL, HEATHER ([id number]) on 08/23/2019 11:57:18 AM Referred By: Confirmed By:HEATHER LEUNG MD
[2019-08-23] MEDS: SODIUM CHLORIDE 1,000 ML IV SCH (12:30)
[2019-08-23] MEDS: ALBUTEROL SO4 2.5/IPRATROPIUM 0.5 INH SOL 3 ML VIAL.NEB. NEB SCH ×3 (12:34→21:33)
[2019-08-23 13:14] LABS: BASO % 0.5 % (0-2.0); EOS % 2.6 % (0-4.5); HEMATOCRIT 36.3 % (35.4-49); HEMOGLOBIN 10.8 GM/dL (11.7-16.9); LYMPH % 9.4 % (8-40); MCH 21.1 pg (25.7-33.7); MCHC 29.7 g/dl (32.0-35.9); MEAN PLT VOLUME 9.1 fl (7.5-11.1); NEUT % 80.5 % (42.8-82.8); PLATELET COUNT 317 K/MM3 (134-434); RBC 5.11 M/mm3 (4.00-5.60); RDW 31.1 % (11.9-15.9); WHITE BLOOD COUNT 11.9 K/mm3 (4.0-10.0)
--- NOTE | 2019-08-23 14:57 | PN ---
Teaching Attending Note Name of Resident: Delfino Watters ATTENDING PHYSICIAN STATEMENT I saw and evaluated the patient. I reviewed the resident's note and discussed the case with the resident. I agree with the resident's findings and plan as documented. SUBJECTIVE: seen at 10:30 am He has SOB, has no PC . has lower back pain. fever started 1-2 days prior to admission . was still on prednisone taper and Augmentin at time pf presentation denies diearrhea . has aches all over his body and SALAS . no visual changes. non productive cough . OBJECTIVE: NAD. dry MM. no JVD. erythematous oropharynx with no exudate CV; RRR, no MRg lungs: b/l wheezes. no crackles . decreased breath sounds at bases Abd: soft, NT, Nd , nl BS Ext : No edema or erythema . MS: TTP over thighs, legs , arms, and R lumbar paraspinal muscls ASSESSMENT AND PLAN: 68 y/o man with h/o HTN, hyperlipidemia, COPD, CAD, atrial fibrillation, BPH, anxiety, h/o TBI, and recent hospitalization at [facility] for PNA. he was diagnosed with sepsis . 1- Sepsis: due to flu A, and PNA . cxray shows b/l infiltrates which is slightly better compared to cxray few days ago. - cont Abx - follow blood cx - tamiflu da 07/31 - send sputum cx - CT of chest with IV contrast was ordered last night. change to CT w/o contrast . r/o effusions - add IVF . looks volume depleted 2- Acute hypoxic resp failure: due to Flu, PNA, and Copd exacerbation - start IV steroids - NEbs - BIPAP if needed - PNA and flu treatment 3- HTN: cont clonidine and norvasc 4- H/o bipolar, TBI, ? ADHD : - has to bring Adderall frm home . cont ativan 5- H/o A fib: per records, he had refused to be on AC DVT PX
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
[2019-08-23] MEDS: VANCOMYCIN 1 GRAM (PRE-DOCKED) 1,000 MG/250 ML BAG IVPB SCH (15:56)
[2019-08-23 16:19] VITALS: BMI 28.0
--- NOTE | 2019-08-23 16:48 | CONS ---
INFECTIOUS DISEASE CONSULTATION DATE OF CONSULTATION: DATE OF DICTATION: 08/23/2019 HISTORY: The patient is a 68-year-old male with a history of COPD with a recent hospitalization for pneumonia evaluated for acute influenza. History was obtained primarily from the chart as he cannot give a reliable history. According to the notes, he had been hospitalized from August 13 through August 18, 2019, for pneumonia. He was treated with Zithromax and ceftriaxone and ultimately switched to Augmentin to be treated as an outpatient. He was also on tapering doses of prednisone. His hospital course at that time was complicated by anemia requiring blood transfusions. He now returns with complaints of worsening cough, shortness of breath, diffuse arthralgias, and myalgias. In the emergency room, the patient's temperature was 103.7. He was noted to have a white blood cell count of 18,000. A rapid flu swab was performed and was positive for influenza A. He was started on Tamiflu. In addition, he was started on vancomycin and cefepime for possible superimposed pneumonia. Chest x-ray on admission appears improved from his chest x-ray from his recent admission. He is awake and alert; however, he appears slightly confused. He is somnolent. He answers simple questions. His course has been complicated by hypoxemia. PAST MEDICAL HISTORY: Positive for COPD, history of atrial fibrillation, hypertension, hyperlipidemia, bipolar disorder, traumatic brain injury, BPH. ALLERGIES: ALPRAZOLAM, GATIFLOXACIN, LAMOTRIGINE, AMBIEN, TRAZODONE, and QUETIAPINE. MEDICATIONS: Norvasc, Symbicort, Flomax, simvastatin, aspirin, prednisone. SOCIAL HISTORY: Resides in the community. No active tobacco or alcohol use. SYSTEMS REVIEW: Neurologic: No loss of consciousness, seizure activity, or focal weakness. Cardiac: Negative chest pain or palpitations. Respiratory: As per HPI. Gastrointestinal: Negative vomiting or diarrhea. Genitourinary: Negative for urinary tract infection. LABORATORY DATA: White count 18.2, 77 neutrophils, 11 lymphocytes, 8 monocytes, hematocrit 40.3, platelets 376, creatinine 1.0, total bilirubin 0.5, alkaline phosphatase 93, AST 72. PHYSICAL EXAMINATION: General: He is awake; however, he is somnolent and answers simple questions. Vital Signs: Temperature 97.3, maximum temperature 103.7, blood pressure 154/74, pulse 81 regular, respirations 18 per minute. HEENT: Sclerae anicteric. Heart: Sounds S1, S2. Lungs: Bilateral rhonchi. Abdomen: Soft. No tenderness elicited. No mass, rebound, or rigidity. Extremities: Negative for edema. IMPRESSION: 1. Influenza A. 2. Rule out hospital-acquired pneumonia. 3. Chronic obstructive pulmonary disease exacerbation. 4. Leukocytosis, possibly steroid induced. 5. History of bipolar disorder. PLAN: Await sepsis workup. Continue Tamiflu. Droplet precautions for flu. Empiric coverage for possible secondary bacterial pneumonia possibly with hospital-acquired pathogens with vancomycin and cefepime. Agree with CAT scan of the chest. We will follow. Thank you for the kind referral. TIFFANIE KU M.D. [id number]
[2019-08-23] MEDS ORDERED: DEXTROSE 5%-WATER 100 ML IVPB ONE (17:16)
[2019-08-23 17:24] LABS: URINE APPEARANCE CLEAR; URINE BILIRUBIN NEGATIVE (NEGATIVE); URINE COLOR YELLOW; URINE GLUCOSE (UA) NEGATIVE (NEGATIVE); URINE KETONE NEGATIVE (NEGATIVE); URINE LEUK ESTERASE NEGATIVE (NEGATIVE); URINE NITRITE NEGATIVE (NEGATIVE); URINE PROTEIN TRACE (NEGATIVE); URINE UROBILINOGEN 0.2 mg/dL (0.2-1.0)
[2019-08-23] MEDS: CEFEPIME 1 GM in DEXTROSE 5%-WATER 100 ML IVPB SCH (17:33)
[2019-08-23] MEDS ORDERED: ALBUTEROL SO4 0.083% IH SOL 2.5 MG/3 ML VIAL.NEB. NEB PRN (18:02)
[2019-08-23] MEDS: methylPREDNISolone NA SUCC 40 MG/1 ML VIAL IVPUSH SCH (18:53)
--- NOTE | 2019-08-23 19:40 | PN ---
Physical Exam: SUBJECTIVE: Patient seen and examined O/N: had Condition 10 d/t beligerence, received ativan/Haldol/benadryl OBJECTIVE: Vital Signs Period Temp Pulse Resp BP Sys/Walter Pulse Ox Last 24 Hr 97.3 F-103.7 F 75-100 18-22 109-159/49-81 90-99 GENERAL: The patient is somonolent. Agitated HEAD: Normal with no signs of trauma. EYES: sclera anicteric, conjunctiva clear. No ptosis. ENT: Ears normal, nares patent, oropharynx clear without exudates, moist mucous membranes. NECK: Trachea midline, full range of motion, supple. Neg cervical LAD LUNGS: b/l coarse BS, diffuse wheezes, no accessory muscle use. NC ~3L HEART: Regular rate and rhythm, S1, S2 without murmur, rub or gallop. ABDOMEN: Soft, nontender, nondistended, normoactive bowel sounds, no guarding, no rebound. Lower back paraspinal tenderness EXTREMITIES: 2+ pulses, warm, well-perfused, no edema. NEUROLOGICAL: agitated speech PSYCH: agitated, anxious SKIN: Warm, dry, normal turgor, no rashes or lesions noted Laboratory Results - last 24 hr 08/22/19 08/22/19 08/22/19 21:49 21:49 21:49 WBC RBC Hgb Hct MCV MCH MCHC RDW Plt Count MPV Absolute Neuts (auto) Neutrophils % Lymphocytes % Monocytes % Eosinophils % Basophils % Nucleated RBC % Hypochromia Anisocytosis Ovalocytes PT with INR 13.10 H INR 1.11 H PTT (Actin FS) 25.2 Anticoagulation Therapy Puncture Site ABG pH ABG pCO2 at Pt Temp ABG pO2 at Pt Temp ABG HCO3 ABG O2 Sat (Measured) ABG O2 Content ABG Base Excess Umer Test VBG pH 7.51 H POC VBG pCO2 32.3 L POC VBG pO2 63.9 H VBG HCO3 25.7 VBG O2 Sat (Laura) 93.2 H VBG Base Excess 3.3 H O2 Delivery Device Oxygen Flow Rate Vent Mode Vent Rate Mechanical Rate Pressure Support Vent Sodium Potassium Chloride Carbon Dioxide Anion Gap BUN Creatinine Est GFR (CKD-EPI)AfAm Est GFR (CKD-EPI)NonAf Random Glucose Lactic Acid 2.0 Calcium Total Bilirubin AST ALT Alkaline Phosphatase Troponin I Total Protein Albumin Urine Color Urine Appearance Urine pH Ur Specific [place] Urine Protein Urine Glucose (UA) Urine Ketones Urine Blood Urine Nitrite Urine Bilirubin Urine Urobilinogen Ur Leukocyte Esterase Influenza A (Rapid) Influenza B (Rapid) 08/22/19 08/22/19 08/22/19 21:49 21:49 22:12 WBC 18.2 H RBC 5.76 H Hgb 11.9 Hct 40.3 D MCV 70.1 L MCH 20.6 L MCHC 29.4 L RDW 31.6 H Plt Count 376 D MPV 9.1 Absolute Neuts (auto) 14.1 H Neutrophils % 77.6 D Lymphocytes % 11.9 D Monocytes % 8.6 Eosinophils % 1.3 Basophils % 0.6 Nucleated RBC % 0 Hypochromia 2+ Anisocytosis 3+ Ovalocytes Few PT with INR INR PTT (Actin FS) Anticoagulation Therapy Puncture Site ABG pH ABG pCO2 at Pt Temp ABG pO2 at Pt Temp ABG HCO3 ABG O2 Sat (Measured) ABG O2 Content ABG Base Excess Umer Test VBG pH POC VBG pCO2 POC VBG pO2 VBG HCO3 VBG O2 Sat (Laura) VBG Base Excess O2 Delivery Device Oxygen Flow Rate Vent Mode Vent Rate Mechanical Rate Pressure Support Vent Sodium 135 L Potassium 5.1 Chloride 102 Carbon Dioxide 25 Anion Gap 9 BUN 15.3 Creatinine 1.0 Est GFR (CKD-EPI)AfAm 88.61 Est GFR (CKD-EPI)NonAf 76.45 Random Glucose 98 Lactic Acid Calcium 8.5 Total Bilirubin 0.5 AST 72 H ALT 112 H Alkaline Phosphatase 93 Troponin I < 0.02 Total Protein 7.0 Albumin 3.1 L Urine Color Urine Appearance Urine pH Ur Specific [place] Urine Protein Urine Glucose (UA) Urine Ketones Urine Blood Urine Nitrite Urine Bilirubin Urine Urobilinogen Ur Leukocyte Esterase Influenza A (Rapid) Positive A Influenza B (Rapid) Negative 08/23/19 08/23/19 08/23/19 06:40 12:28 16:00 WBC 11.9 H RBC 5.11 Hgb 10.8 L Hct 36.3 MCV 71.0 L MCH 21.1 L MCHC 29.7 L RDW 31.1 H Plt Count 317 MPV 9.1 Absolute Neuts (auto) 9.6 H Neutrophils % 80.5 Lymphocytes % 9.4 D Monocytes % 7.0 Eosinophils % 2.6 D Basophils % 0.5 Nucleated RBC % 0 Hypochromia Anisocytosis Ovalocytes PT with INR INR PTT (Actin FS) Anticoagulation Therapy No Result Required. Puncture Site Right radial ABG pH 7.45 ABG pCO2 at Pt Temp 35.5 ABG pO2 at Pt Temp 53.8 L ABG HCO3 24.0 ABG O2 Sat (Measured) 86.1 L ABG O2 Content 12.2 ABG Base Excess 0.6 Umer Test Positive VBG pH POC VBG pCO2 POC VBG pO2 VBG HCO3 VBG O2 Sat (Laura) VBG Base Excess O2 Delivery Device N/c Oxygen Flow Rate 2l Vent Mode No Result Required. Vent Rate No Result Required. Mechanical Rate No Result Required. Pressure Support Vent No Result Required. Sodium Potassium Chloride Carbon Dioxide Anion Gap BUN Creatinine Est GFR (CKD-EPI)AfAm Est GFR (CKD-EPI)NonAf Random Glucose Lactic Acid Calcium Total Bilirubin AST ALT Alkaline Phosphatase Troponin I Total Protein Albumin Urine Color Yellow Urine Appearance Clear Urine pH 6.0 Ur Specific [place] 1.020 Urine Protein Trace Urine Glucose (UA) Negative Urine Ketones Negative Urine Blood Negative Urine Nitrite Negative Urine Bilirubin Negative Urine Urobilinogen 0.2 Ur Leukocyte Esterase Negative Influenza A (Rapid) Influenza B (Rapid) Active Medications Generic Name Dose Route Start Last Admin Trade Name Freq PRN Reason Stop Dose Admin Albuterol Sulfate 1 amp 08/23/19 18:02 Ventolin 0.083% Nebulizer Soln - NEB Q4H PRN SHORT OF BREATH/WHEEZING Albuterol/Ipratropium 1 amp 08/23/19 12:00 08/23/19 15:27 Duoneb - NEB 1 amp RQID CHUCK Administration Amlodipine Besylate 10 mg 08/23/19 10:00 08/23/19 11:03 Norvasc - PO 10 mg DAILY CHUCK Administration Aspirin 81 mg 08/23/19 10:08/23/19 11:03 Ecotrin - PO 81 mg DAILY CHUCK Administration Atorvastatin Calcium 10 mg 08/23/19 22:00 Lipitor - PO HS CHUCK Clonidine 0.3 mg 08/23/19 10:00 08/23/19 11:02 Catapres - PO 0.3 mg BID CHUCK Administration Doxepin HCl 150 mg 08/23/19 22:00 Sinequan - PO HS CHUCK Ferrous Sulfate 325 mg 08/23/19 10:00 08/23/19 11:03 Feosol - PO 325 mg DAILY CHUCK Administration Sodium Chloride 1,000 mls @ 100 mls/hr 08/23/19 11:00 08/23/19 12:30 Normal Saline - IV 100 mls/hr ASDIR CHUCK Administration Vancomycin HCl 1,000 mg in 250 mls @ 166.667 mls/hr 08/23/19 16:00 08/23/19 15:56 Vancomycin (Pre-Docked) IVPB 166.667 mls/hr Q12H CHUCK Administration Protocol Cefepime HCl 1 gm/ Dextrose 100 mls @ 200 mls/hr 08/23/19 18:00 08/23/19 17: 33 IVPB 200 mls/hr Q8H-IV CHUCK Administration Protocol Ketorolac Tromethamine 30 mg 08/23/19 02:46 Toradol Injection - IVPUSH 08/28/19 02:45 Q6H PRN PAIN LEVEL 6-10 Lorazepam 2 mg 08/23/19 06:00 08/23/19 13:02 Ativan - PO 2 mg TID CHUCK Administration Methylprednisolone Sodium Succinate 40 mg 08/23/19 18:15 08/23/19 18:53 Solu-Medrol - IVPUSH 40 mg Q8H-IV CHUCK Administration Non-Formulary Medication 1 each 08/24/19 10:00 Patient's Own Med PO DAILY CHUCK Oseltamivir Phosphate 75 mg 08/23/19 00:30 08/23/19 11:05 Tamiflu - PO 08/28/19 00:29 75 mg BID CHUCK Administration Senna 2 tab 08/23/19 02:33 Senna - PO HS PRN CONSTIPATION Tamsulosin HCl 0.4 mg 08/23/19 08:30 08/23/19 11:02 Flomax - PO 0.4 mg DAILY@0830 CHUCK Administration ASSESSMENT/PLAN: 68M with PMH of COPD, AFib, HTN, traumatic brain injury (TBI), and Bipolar disorder presented to the ER with SOB and a productive cough, along with left sided back/flank pain for the past 4 days. Admitted for respiratory distress and sepsis 2/2 viral PNA vs influenza. #Sepsis 2/2 bacteria PNA vs viral PNA vs Influenza A > WBC 18.2, Temp 103.7 > Influenza A: positive > CXR: B/L multifocal infiltration > CT Chest: mild-mod COPD w/ atelectasis w/in RLL, diffuse interstitial infiltrates > BCX --pending > UCX --pending > UA: neg nitrite, neg LE > US renal: neg hydronephrosis, neg renal stones - Abx regimen: --Cefepime 1g Q8H and Vanco 1g Q12 - Tamiflu 75mg BID for positive Influenza A --day 2 - pain regimen: Toradol 30mg Q6H for pain - supplemental O2, PRN - VBG: pH 7.51, CO2 32, O2 64, Bicarb 25.7, ABG ordered on Venti - Droplet isolation precaution - ID consulted (Dr. Montanez) #Hx of anemia - Last admission from Aug 13 to : H/H was 5.5/20, 3xPRBC, Venoferx1, FOBT -, GI recommended outpatient F/U for EGD/Colonoscopy - Current H/H 11.9/40.3 with MCV 70, borderline anemic, will monitor H/H - Oral Iron home med continued #Transaminitis - AST 72, ALT 112 > US RUQ: hepatomegaly suggestive of fatty infiltration, neg Gallstones #Hx of AFib - As per chart review from previous visit, pt refused AC #Hx of COPD - Duoneg QID - solumedrol 40mg QD #Hx of HTN - norvasc 10mg, clonidine 0.3 BID #Hx of HLD - atorvastatin 10mg #Hx of BPH - tamsulosin #Hx of psychiatric illness (Bipolar disorder) - Doxepin and Lorazepam; Adderall #FEN - NS @100 - sodium-controlled diet #DVT - SCDs for now, will monitor H/H to make sure pt not bleeding Visit type - Emergency Visit Emergency Visit: No - New Patient This patient is new to me today: No - Critical Care Critical Care patient: No ATTENDING PHYSICIAN STATEMENT I saw and evaluated the patient. I reviewed the resident's note and discussed the case with the resident. I agree with the resident's findings and plan as documented. SUBJECTIVE: OBJECTIVE: ASSESSMENT AND PLAN:
[2019-08-23] MEDS: DOXEPIN HCL 50 MG CAPSULE PO SCH (21:58)
[2019-08-23] MEDS: ATORVASTATIN CA 10 MG TABLET (FP) PO SCH (21:58)
[2019-08-23] MEDS ORDERED: BUDESONIDE/FORMETEROL FUMARATE 160/4.5 mcg INHALER IH SCH (22:00)
[2019-08-23] MEDS ORDERED: PATIENT'S OWN MEDICATION (NON-FORMULARY) (Simvastatin [Simvastatin] 20 MG) PO SCH (22:00)
[2019-08-23] MEDS: guaiFENesin 200 MG/10 ML 10 ML UNIT-DOSE CUPS PO PRN (22:10)
[2019-08-24] MEDS ORDERED: DEXTROSE 5%-WATER 100 ML IVPB ONE ×3 (01:16→17:19)
[2019-08-24] MEDS ORDERED: CEFEPIME HCL 1 GM VIAL (RESTRICTED TO ID) ONE ×3 (01:16→17:19)
[2019-08-24] MEDS: CEFEPIME 1 GM in DEXTROSE 5%-WATER 100 ML IVPB SCH ×3 (01:56→18:11)
[2019-08-24] MEDS: SODIUM CHLORIDE 1,000 ML IV SCH ×2 (01:56→16:02)
[2019-08-24] MEDS: methylPREDNISolone NA SUCC 40 MG/1 ML VIAL IVPUSH SCH ×3 (01:56→18:11)
[2019-08-24] MEDS ORDERED: VANCOMYCIN 1 GRAM (PRE-DOCKED) 1,000 MG/250 ML BAG IVPB ONE (03:00)
[2019-08-24] MEDS: VANCOMYCIN 1 GRAM (PRE-DOCKED) 1,000 MG/250 ML BAG IVPB SCH ×2 (04:12→16:07)
[2019-08-24] MEDS: LORazepam 1 MG TABLET PO SCH ×3 (05:09→22:24)
[2019-08-24] MEDS: guaiFENesin 200 MG/10 ML 10 ML UNIT-DOSE CUPS PO PRN ×2 (05:09→11:11)
[2019-08-24] MEDS: ALBUTEROL SO4 2.5/IPRATROPIUM 0.5 INH SOL 3 ML VIAL.NEB. NEB SCH ×4 (08:06→20:25)
[2019-08-24] MEDS: TAMSULOSIN HCL 0.4 MG CAP PO SCH (08:17)
[2019-08-24] MEDS ORDERED: PT OWN MED DRAWER 7, Y5N ONE ×3 (09:11→22:34)
--- NOTE | 2019-08-24 09:25 | PN ---
Teaching Attending Note Name of Resident: Delfino Nevarezung ATTENDING PHYSICIAN STATEMENT I saw and evaluated the patient. I reviewed the resident's note and discussed the case with the resident. I agree with the resident's findings and plan as documented. SUBJECTIVE: Patient is comfortable, no fever or chills. no shortness of breath. OBJECTIVE: Vital Signs Temperature 97.8 F 08/24/19 09:13 Pulse Rate 83 08/24/19 09:13 Respiratory Rate 20 08/24/19 09:13 Blood Pressure 121/56 L 08/24/19 09:13 O2 Sat by Pulse Oximetry (%) 97 08/23/19 22:00 GENERAL: The patient is awake, alert, and fully oriented, in no acute distress. HEAD: Normal with no signs of trauma. EYES: PERRL, extraocular movements intact, sclera anicteric, conjunctiva clear. ENT: Ears normal, oropharynx clear without exudates, moist mucous membranes. NECK: Trachea midline, full range of motion, supple. LUNGS: Breath sounds equal, clear to auscultation bilaterally, no wheezes, no crackles, no accessory muscle use. HEART: Regular rate and rhythm, S1, S2 without murmur, rub or gallop. ABDOMEN: Soft, nontender, nondistended, normoactive bowel sounds, no guarding, no rebound, no hepatosplenomegaly, no masses. EXTREMITIES: 2+ pulses, warm, well-perfused, no edema. NEUROLOGICAL: Cranial nerves II through XII grossly intact. Normal speech, gait not observed. PSYCH: Normal mood, normal affect. SKIN: Warm, dry, normal turgor, no rashes or lesions noted CBCD WBC 11.9 K/mm3 (4.0-10.0) H 08/23/19 12:28 RBC 5.11 M/mm3 (4.00-5.60) 08/23/19 12:28 Hgb 10.8 GM/dL (11.7-16.9) L 08/23/19 12: Hct 36.3 % (35.4-49) 08/23/19 12:28 MCV 71.0 fl (80-96) L 08/23/19 12:28 MCHC 29.7 g/dl (32.0-35.9) L 08/23/19 12: RDW 31.1 % (11.9-15.9) H 08/23/19 12:28 Plt Count 317 K/MM3 (134-434) 08/23/19 12:28 MPV 9.1 fl (7.5-11.1) 08/23/19 12:28 CMP Sodium 135 mmol/L (136-145) L 08/22/19 21:49 Potassium 5.1 mmol/L (3.5-5.1) 08/22/19 21:49 Chloride 102 mmol/L (98-107) 08/22/19 21:49 Carbon Dioxide 25 mmol/L (21-32) 08/22/19 21:49 Anion Gap 9 MMOL/L (8-16) 08/22/19 21:49 BUN 15.3 mg/dL (7-18) 08/22/19 21:49 Creatinine 1.0 mg/dL (0.55-1.3) 08/22/19 21:49 Random Glucose 98 mg/dL (74-106) 08/22/19 21:49 Calcium 8.5 mg/dL (8.5-10.1) 08/22/19 21:49 Total Bilirubin 0.5 mg/dL (0.2-1) 08/22/19 21:49 AST 72 U/L (15-37) H 08/22/19 21:49 ALT 112 U/L (13-61) H 08/22/19 21:49 Alkaline Phosphatase 93 U/L (45-117) 08/22/19 21:49 Total Protein 7.0 g/dl (6.4-8.2) 08/22/19 21:49 Albumin 3.1 g/dl (3.4-5.0) L 08/22/19 21:49 CARDIAC ENZYMES Troponin I < 0.02 ng/ml (0.00-0.05) 08/22/19 21:49 Current Medications Generic Name Dose Route Start Last Admin Trade Name Freq PRN Reason Stop Dose Admin Albuterol Sulfate 1 amp 08/23/19 18:02 08/24/19 05:29 Ventolin 0.083% Nebulizer Soln - NEB 1 amp Q4H PRN Administration SHORT OF BREATH/WHEEZING Albuterol/Ipratropium 1 amp 08/23/19 12:00 08/23/19 21:33 Duoneb - NEB 1 amp RQID CHUCK Administration Amlodipine Besylate 10 mg 08/23/19 10:00 08/23/19 11:03 Norvasc - PO 10 mg DAILY CHUCK Administration Aspirin 81 mg 08/23/19 10:00 08/23/19 11:03 Ecotrin - PO 81 mg DAILY CHUCK Administration Atorvastatin Calcium 10 mg 08/23/19 22:00 08/23/19 21:58 Lipitor - PO 10 mg HS CHUCK Administration Clonidine 0.3 mg 08/23/19 10:00 08/23/19 21:50 Catapres - PO 0.3 mg BID CHUCK Administration Doxepin HCl 150 mg 08/23/19 22:00 08/23/19 21:58 Sinequan - PO 150 mg HS CHUCK Administration Ferrous Sulfate 325 mg 08/23/19 10:00 08/23/19 11:03 Feosol - PO 325 mg DAILY CHUCK Administration Guaifenesin 10 ml 08/23/19 22:04 08/24/19 05:09 Robitussin - PO 10 ml Q6H PRN Administration COUGH Sodium Chloride 1,000 mls @ 100 mls/hr 08/23/19 11:00 08/24/19 01:56 Normal Saline - IV 100 mls/hr ASDIR CHUCK Administration Vancomycin HCl 1,000 mg in 250 mls @ 166.667 mls/hr 08/23/19 16:00 08/24/19 04:12 Vancomycin (Pre-Docked) IVPB 166.667 mls/hr Q12H CHUCK Administration Protocol Cefepime HCl 1 gm/ Dextrose 100 mls @ 200 mls/hr 08/23/19 18:00 08/24/19 01: 56 IVPB 200 mls/hr Q8H-IV CHUCK Administration Protocol Ketorolac Tromethamine 30 mg 08/23/19 02:46 Toradol Injection - IVPUSH 08/28/19 02:45 Q6H PRN PAIN LEVEL 6-10 Lorazepam 2 mg 08/23/19 06:00 08/24/19 05:09 Ativan - PO 2 mg TID CHUCK Administration Methylprednisolone Sodium Succinate 40 mg 08/23/19 18:15 08/24/19 01:56 Solu-Medrol - IVPUSH 40 mg Q8H-IV CHUCK Administration Non-Formulary Medication 1 each 08/24/19 10:00 Patient's Own Med PO DAILY CHUCK Oseltamivir Phosphate 75 mg 08/23/19 00:30 08/23/19 21:58 Tamiflu - PO 08/28/19 00:29 75 mg BID CHUCK Administration Senna 2 tab 08/23/19 02:33 Senna - PO HS PRN CONSTIPATION Tamsulosin HCl 0.4 mg 08/23/19 08:30 08/24/19 08:17 Flomax - PO 0.4 mg DAILY@0830 CHUCK Administration Home Medications Medication Instructions Recorded Amlodipine Besylate [Norvasc -] 10 mg PO DAILY 12/24/11 Budesonide/Formeterol Fumarate 1 inh PO BID 01/21/19 [SYMBICORT 80/4.5mcg -] Sennosides [Senna -] 2 tab PO HS PRN tablet 04/27/19 Tamsulosin HCl [Flomax -] 0.4 mg PO HS cap.er.24h 04/27/19 Simvastatin 40 mg PO DAILY 08/13/19 Aspirin [Aspirin EC] 81 mg PO DAILY 08/14/19 Dextroamphetamine/Amphetamine 20 mg PO DAILY 08/14/19 [Adderall Xr 20 mg Capsule] Doxepin HCl [Sinequan -] 150 mg PO HS 08/14/19 LORazepam [Lorazepam] 2 mg PO TID 08/14/19 cloNIDine HCL [Catapres -] 0.3 mg PO BID 08/14/19 Amoxicillin/Potassium Clav 1 each PO BID #10 tablet 08/18/19 [Augmentin 875-125 Tablet] Doxepin HCl [Sinequan -] 175 mg PO HS capsule 08/18/19 predniSONE [Deltasone -] 10 mg PO ASDIR #42 tablet 08/18/19 Microbiology 08/22/19 21:49 Blood - Peripheral Venous Blood Culture - Preliminary NO GROWTH OBTAINED AFTER 24 HOURS, INCUBATION TO CONTINUE FOR 4 DAYS. 08/22/19 21:49 Blood - Peripheral Venous Blood Culture - Preliminary NO GROWTH OBTAINED AFTER 24 HOURS, INCUBATION TO CONTINUE FOR 4 DAYS. ASSESSMENT AND PLAN: Patient is a 68yom with PMhx of HTN, hyperlipidemia, COPD, CAD, atrial fibrillation, BPH, anxiety, h/o TBI, and recent hospitalization at [place] for PNA. is admitted for having sepsis # Sepsis: due to flu A, and PNA . continue cefepime #Influ. A continue tamiflu day 2/5 # Acute hypoxic resp failure: due to Flu, PNA, and Copd exacerbation , continue steroid, NEbs , BIPAP if needed # HTN: cont clonidine and norvasc # H/o bipolar, TBI, possible ADHD : has to bring Adderall frm home . cont ativan # H/o A fib: per records, he had refused to be on AC DVT PX: SCDs, patient refused AC
[2019-08-24] MEDS: cloNIDine HCL 0.1 MG TABLET PO SCH ×2 (09:29→22:24)
[2019-08-24] MEDS: ASPIRIN COATED 81 MG TABLET.EC PO SCH (09:30)
[2019-08-24] MEDS: FERROUS SO4 325 MG TABLET (FP) PO SCH (09:30)
[2019-08-24] MEDS: amLODIPine BESYLATE 10 MG TABLET (FP) PO SCH (09:31)
[2019-08-24 09:54] LABS: HEMATOCRIT 34.1 % (35.4-49); HEMOGLOBIN 10.3 GM/dL (11.7-16.9); MCH 21.2 pg (25.7-33.7); MCHC 30.1 g/dl (32.0-35.9); MEAN CELL VOLUME 70.5 fl (80-96); MEAN PLT VOLUME 8.4 fl (7.5-11.1); PLATELET COUNT 317 K/MM3 (134-434); RBC 4.84 M/mm3 (4.00-5.60); RDW 30.6 % (11.9-15.9); WHITE BLOOD COUNT 9.1 K/mm3 (4.0-10.0)
[2019-08-24 10:32] LABS: BLOOD UREA NITROGEN 18.6 mg/dL (7-18); CALCIUM 7.9 mg/dL (8.5-10.1); CREATININE 0.9 mg/dL (0.55-1.3); MAGNESIUM 2.5 mg/dL (1.8-2.4); PHOSPHOROUS 2.9 mg/dL (2.5-4.9); POTASSIUM 3.7 mmol/L (3.5-5.1)
[2019-08-24] MEDS: OSELTAMIVIR PHOSPHATE 75 MG CAPSULE PO SCH ×2 (11:04→22:25)
--- NOTE | 2019-08-24 14:33 | PN ---
Progress Note (short form) - Note Progress Note: PULMONARY Breathing slightly improved but still with nonproductive cough and wheezing. Vital Signs Period Temp Pulse Resp BP Sys/Walter Pulse Ox Last 24 Hr 97.1 F-99.8 F 67-83 18-20 106-128/48-69 95-98 Gen: less tachypneic Heart: RRR Lung: scattered rhonchi, wheezes Abd: soft, nontender Ext: no edema CBC, BMP 08/24/19 09:12 08/24/19 09:12 Active Medications Albuterol Sulfate (Ventolin 0.083% Nebulizer Soln -) 1 amp NEB Q4H PRN PRN Reason: SHORT OF BREATH/WHEEZING Last Admin: 08/24/19 05:29 Dose: 1 amp Albuterol/Ipratropium (Duoneb -) 1 amp NEB RQID [facility] Last Admin: 08/24/19 11:59 Dose: 1 amp Amlodipine Besylate (Norvasc -) 10 mg PO DAILY [facility] Last Admin: 08/24/19 09:31 Dose: 10 mg Aspirin (Ecotrin -) 81 mg PO DAILY [facility] Last Admin: 08/24/19 09:30 Dose: 81 mg Atorvastatin Calcium (Lipitor -) 10 mg PO HS [facility] Last Admin: 08/23/19 21:58 Dose: 10 mg Clonidine (Catapres -) 0.3 mg PO BID [facility] Last Admin: 08/24/19 09:29 Dose: 0.3 mg Doxepin HCl (Sinequan -) 150 mg PO HS [facility] Last Admin: 08/23/19 21:58 Dose: 150 mg Ferrous Sulfate (Feosol -) 325 mg PO DAILY [facility] Last Admin: 08/24/19 09:30 Dose: 325 mg Guaifenesin (Robitussin -) 10 ml PO Q6H PRN PRN Reason: COUGH Last Admin: 08/24/19 11:11 Dose: 10 ml Sodium Chloride (Normal Saline -) 1,000 mls @ 100 mls/hr IV ASDIR [facility] Last Admin: 08/24/19 01:56 Dose: 100 mls/hr Vancomycin HCl (Vancomycin (Pre-Docked)) 1,000 mg in 250 mls @ 166.667 mls/hr IVPB Q12H [facility]; Protocol Last Admin: 08/24/19 04:12 Dose: 166.667 mls/hr Cefepime HCl 1 gm/ Dextrose 100 mls @ 200 mls/hr IVPB Q8H-IV [facility]; Protocol Last Admin: 08/24/19 09:30 Dose: 200 mls/hr Ketorolac Tromethamine (Toradol Injection -) 30 mg IVPUSH Q6H PRN PRN Reason: PAIN LEVEL 6-10 Stop: 08/28/19 02:45 Lorazepam (Ativan -) 2 mg PO TID [facility] Last Admin: 08/24/19 05:09 Dose: 2 mg Methylprednisolone Sodium Succinate (Solu-Medrol -) 40 mg IVPUSH Q8H-IV [facility] Last Admin: 08/24/19 09:31 Dose: 40 mg Non-Formulary Medication (Patient's Own Med) 1 each PO DAILY [facility] Oseltamivir Phosphate (Tamiflu -) 75 mg PO BID [facility] Stop: 08/28/19 00:29 Last Admin: 08/24/19 11:04 Dose: 75 mg Senna (Senna -) 2 tab PO HS PRN PRN Reason: CONSTIPATION Last Admin: 08/24/19 09:30 Dose: 2 tab Tamsulosin HCl (Flomax -) 0.4 mg PO DAILY@0830 [facility] Last Admin: 08/24/19 08:17 Dose: 0.4 mg A/P Influenza A Pneumonia Acute COPD/Bronchiectasis Exacerbation Atrial Fibrillation HTN h/o TBI Bipolar Disorder - tamiflu BID x 5 days - IV antibiotics - f/u cultures - continue medrol at current dose - inhaled bronchodilators standing and PRN - O2 to keep SpO2 90% - rate control - continue anticoagulation Problem List - Problems (1) Influenza A Code(s): J10.1 - FLU DUE TO OTH IDENT INFLUENZA VIRUS W OTH RESP MANIFEST (2) Pneumonia Code(s): J18.9 - PNEUMONIA, UNSPECIFIED ORGANISM Qualifiers: Pneumonia type: due to unspecified organism Laterality: unspecified laterality Lung location: unspecified part of lung Qualified Code(s): J18.9 - Pneumonia, unspecified organism (3) Bronchiectasis with (acute) exacerbation Code(s): J47.1 - BRONCHIECTASIS WITH (ACUTE) EXACERBATION (4) COPD exacerbation Code(s): J44.1 - CHRONIC OBSTRUCTIVE PULMONARY DISEASE W (ACUTE) EXACERBATION
--- NOTE | 2019-08-24 15:09 | PN ---
Physical Exam: SUBJECTIVE: Patient seen and examined NAEON Endorses improvement in SOB. Denies having home O2 OBJECTIVE: Vital Signs Period Temp Pulse Resp BP Sys/Walter Pulse Ox Last 24 Hr 97.1 F-98.4 F 67-83 18-20 106-128/48-69 97-98 GENERAL: The patient is alert. Mild agitated HEAD: Normal with no signs of trauma. EYES: sclera anicteric, conjunctiva clear. No ptosis. ENT: Ears normal, nares patent, oropharynx clear without exudates, moist mucous membranes. NECK: Trachea midline, full range of motion, supple. Neg cervical LAD LUNGS: b/l coarse BS, diffuse wheezes, no accessory muscle use. NC ~3L HEART: Regular rate and rhythm, S1, S2 without murmur, rub or gallop. ABDOMEN: Soft, nontender, nondistended, normoactive bowel sounds, no guarding, no rebound EXTREMITIES: 2+ pulses, warm, well-perfused, no edema. NEUROLOGICAL: mildly agitated speech PSYCH: agitated, anxious SKIN: Warm, dry, normal turgor, no rashes or lesions noted Laboratory Results - last 24 hr 08/23/19 08/24/19 08/24/19 16:00 09:12 09:12 WBC 9.1 RBC 4.84 Hgb 10.3 L Hct 34.1 L MCV 70.5 L MCH 21.2 L MCHC 30.1 L RDW 30.6 H Plt Count 317 MPV 8.4 Sodium 136 Potassium 3.7 Chloride 105 Carbon Dioxide 20 L Anion Gap 11 BUN 18.6 H Creatinine 0.9 Est GFR (CKD-EPI)AfAm 100.65 Est GFR (CKD-EPI)NonAf 86.84 Random Glucose 244 H Calcium 7.9 L Phosphorus 2.9 Magnesium 2.5 H Urine Color Yellow Urine Appearance Clear Urine pH 6.0 Ur Specific [place] 1.020 Urine Protein Trace Urine Glucose (UA) Negative Urine Ketones Negative Urine Blood Negative Urine Nitrite Negative Urine Bilirubin Negative Urine Urobilinogen 0.2 Ur Leukocyte Esterase Negative Active Medications Generic Name Dose Route Start Last Admin Trade Name Freq PRN Reason Stop Dose Admin Albuterol Sulfate 1 amp 08/23/19 18:02 08/24/19 05:29 Ventolin 0.083% Nebulizer Soln - NEB 1 amp Q4H PRN Administration SHORT OF BREATH/WHEEZING Albuterol/Ipratropium 1 amp 08/23/19 12:00 08/24/19 11:59 Duoneb - NEB 1 amp RQID [facility] Administration Amlodipine Besylate 10 mg 08/23/19 10:00 08/24/19 09:31 Norvasc - PO 10 mg DAILY [facility] Administration Aspirin 81 mg 08/23/19 10:00 08/24/19 09:30 Ecotrin - PO 81 mg DAILY [facility] Administration Atorvastatin Calcium 10 mg 08/23/19 22:00 08/23/19 21:58 Lipitor - PO 10 mg HS [facility] Administration Clonidine 0.3 mg 08/23/19 10:00 08/24/19 09:29 Catapres - PO 0.3 mg BID [facility] Administration Doxepin HCl 150 mg 08/23/19 22:00 08/23/19 21:58 Sinequan - PO 150 mg HS [facility] Administration Ferrous Sulfate 325 mg 08/23/19 10:00 08/24/19 09:30 Feosol - PO 325 mg DAILY [facility] Administration Guaifenesin 10 ml 08/23/19 22:04 08/24/19 11:11 Robitussin - PO 10 ml Q6H PRN Administration COUGH Sodium Chloride 1,000 mls @ 100 mls/hr 08/23/19 11:00 08/24/19 01:56 Normal Saline - IV 100 mls/hr ASDIR [facility] Administration Vancomycin HCl 1,000 mg in 250 mls @ 166.667 mls/hr 08/23/19 16:00 08/24/19 04:12 Vancomycin (Pre-Docked) IVPB 166.667 mls/hr Q12H [facility] Administration Protocol Cefepime HCl 1 gm/ Dextrose 100 mls @ 200 mls/hr 08/23/19 18:00 08/24/19 09: 30 IVPB 200 mls/hr Q8H-IV [facility] Administration Protocol Ketorolac Tromethamine 30 mg 08/23/19 02:46 Toradol Injection - IVPUSH 08/28/19 02:45 Q6H PRN PAIN LEVEL 6-10 Lorazepam 2 mg 08/23/19 06:00 08/24/19 14:35 Ativan - PO 2 mg TID [facility] Administration Methylprednisolone Sodium Succinate 40 mg 08/23/19 18:15 08/24/19 09:31 Solu-Medrol - IVPUSH 40 mg Q8H-IV [facility] Administration Non-Formulary Medication 1 each 08/24/19 10:00 Patient's Own Med PO DAILY [facility] Oseltamivir Phosphate 75 mg 08/23/19 00:30 08/24/19 11:04 Tamiflu - PO 08/28/19 00:29 75 mg BID [facility] Administration Senna 2 tab 08/23/19 02:33 08/24/19 09:30 Senna - PO 2 tab HS PRN Administration CONSTIPATION Tamsulosin HCl 0.4 mg 08/23/19 08:30 08/24/19 08:17 Flomax - PO 0.4 mg DAILY@0830 [facility] Administration ASSESSMENT/PLAN: 68M with PMH of COPD, AFib, HTN, traumatic brain injury (TBI), and Bipolar disorder presented to the ER with SOB and a productive cough, along with left sided back/flank pain for the past 4 days. Admitted for respiratory distress and sepsis 2/2 viral PNA vs influenza. #Sepsis 2/2 bacteria PNA vs viral PNA vs Influenza A > WBC 18.2, Temp 103.7 > Influenza A: positive > CXR: B/L multifocal infiltration > CT Chest: mild-mod COPD w/ atelectasis w/in RLL, diffuse interstitial infiltrates > BCX: NGTD > UCX: staph coag-neg > UA: neg nitrite, neg LE > US renal: neg hydronephrosis, neg renal stones - Abx regimen: --Cefepime 1g Q8H and Vanco 1g Q12 - Tamiflu 75mg BID for positive Influenza A --day 3 - pain regimen: Toradol 30mg Q6H for pain - supplemental O2, PRN - VBG: pH 7.51, CO2 32, O2 64, Bicarb 25.7, ABG ordered on Venti - Droplet isolation precaution - ID consulted (Dr. Montanez) #Hx of COPD - Duoneg QID - solumedrol 40mg q8h #Hx of anemia - Last admission from Aug 13 to : H/H was 5.5/20, 3xPRBC, Venoferx1, FOBT -, GI recommended outpatient F/U for EGD/Colonoscopy - Current H/H 11.9/40.3 with MCV 70, borderline anemic, will monitor H/H - cw home FeSO4 #Transaminitis - AST 72, ALT 112 > US RUQ: hepatomegaly suggestive of fatty infiltration, neg Gallstones #Hx of AFib - As per chart review from previous visit, pt refused AC #Hx of HTN - norvasc 10mg, clonidine 0.3 BID #Hx of HLD - atorvastatin 10mg #Hx of BPH - tamsulosin #Hx of psychiatric illness (Bipolar disorder) - Doxepin and Lorazepam; Adderall #FEN - NS @100 - sodium-controlled diet #DVT - SCDs for now, will monitor H/H to make sure pt not bleeding Visit type - Emergency Visit Emergency Visit: No - New Patient This patient is new to me today: No - Critical Care Critical Care patient: No ATTENDING PHYSICIAN STATEMENT I saw and evaluated the patient. I reviewed the resident's note and discussed the case with the resident. I agree with the resident's findings and plan as documented. SUBJECTIVE: OBJECTIVE: ASSESSMENT AND PLAN:
[2019-08-24] MEDS: DOCUSATE SODIUM 100 MG CAPSULE (FP) PO SCH (16:03)
[2019-08-24] MEDS ORDERED: traMADol HCL 50 MG TABLET PO ONE (21:15)
[2019-08-24] MEDS ORDERED: SENNOSIDES 8.6MG TABLET (FP) PO SCH (22:00)
[2019-08-24] MEDS: ATORVASTATIN CA 10 MG TABLET (FP) PO SCH (22:24)
[2019-08-24] MEDS: BUDESONIDE/FORMETEROL FUMARATE 80/4.5 mcg INHALER IH SCH (22:24)
[2019-08-24] MEDS: ALBUTEROL SO4 8 GM HFA INHALER IH PRN (23:09)
[2019-08-24] MEDS: DOXEPIN HCL 50 MG CAPSULE PO SCH (23:10)
[2019-08-24] MEDS ORDERED: guaiFENesin/D-METHORPHAN HB 10 ML UNIT-DOSE CUPS PO ONE (23:42)
[2019-08-24] MEDS ORDERED: MAG HYDROX/AL HYDROX/SIMETH 30 ML UNIT-DOSE CUP PO ONE (23:42)
[2019-08-25] MEDS ORDERED: CEFEPIME HCL 1 GM VIAL (RESTRICTED TO ID) ONE ×3 (01:12→16:55)
[2019-08-25] MEDS ORDERED: DEXTROSE 5%-WATER 100 ML IVPB ONE ×3 (01:12→16:55)
[2019-08-25] MEDS: CEFEPIME 1 GM in DEXTROSE 5%-WATER 100 ML IVPB SCH ×2 (01:43→09:12)
[2019-08-25] MEDS: methylPREDNISolone NA SUCC 40 MG/1 ML VIAL IVPUSH SCH ×2 (01:43→09:12)
[2019-08-25] MEDS: VANCOMYCIN 1 GRAM (PRE-DOCKED) 1,000 MG/250 ML BAG IVPB SCH (03:38)
[2019-08-25] MEDS: SODIUM CHLORIDE 1,000 ML IV SCH ×2 (03:38→13:51)
[2019-08-25] MEDS: LORazepam 1 MG TABLET PO SCH ×2 (06:56→13:46)
[2019-08-25 07:14] LABS: HEMATOCRIT 31.2 % (35.4-49); HEMOGLOBIN 9.2 GM/dL (11.7-16.9); MCH 20.9 pg (25.7-33.7); MCHC 29.6 g/dl (32.0-35.9); MEAN CELL VOLUME 70.7 fl (80-96); MEAN PLT VOLUME 8.8 fl (7.5-11.1); PLATELET COUNT 306 K/MM3 (134-434); RBC 4.41 M/mm3 (4.00-5.60); RDW 30.6 % (11.9-15.9); WHITE BLOOD COUNT 20.6 K/mm3 (4.0-10.0)
[2019-08-25 07:46] LABS: BLOOD UREA NITROGEN 17.5 mg/dL (7-18); CALCIUM 8.2 mg/dL (8.5-10.1); CREATININE 0.7 mg/dL (0.55-1.3); MAGNESIUM 2.5 mg/dL (1.8-2.4); PHOSPHOROUS 3.4 mg/dL (2.5-4.9); POTASSIUM 4.3 mmol/L (3.5-5.1)
[2019-08-25] MEDS: ALBUTEROL SO4 2.5/IPRATROPIUM 0.5 INH SOL 3 ML VIAL.NEB. NEB SCH ×3 (08:45→17:28)
--- NOTE | 2019-08-25 08:48 | PN ---
Teaching Attending Note Name of Resident: Delfino Watters ATTENDING PHYSICIAN STATEMENT I saw and evaluated the patient. I reviewed the resident's note and discussed the case with the resident. I agree with the resident's findings and plan as documented. SUBJECTIVE: Patient is feeling better wants to go home. Vital Signs Temperature 97.5 F L 08/25/19 06:00 Pulse Rate 74 08/25/19 06:00 Respiratory Rate 18 08/25/19 06:00 Blood Pressure 110/57 L 08/25/19 06:00 O2 Sat by Pulse Oximetry (%) 97 08/24/19 22:00 GENERAL: The patient is awake, alert, and fully oriented, in no acute distress. HEAD: Normal with no signs of trauma. EYES: PERRL, extraocular movements intact, sclera anicteric, conjunctiva clear. ENT: Ears normal, oropharynx clear without exudates, moist mucous membranes. NECK: Trachea midline, full range of motion, supple. LUNGS: mild wheeze bl otherwise CTA BL , no crackles, no accessory muscle use. HEART: Regular rate and rhythm, S1, S2 without murmur, rub or gallop. ABDOMEN: Soft, nontender, nondistended, normoactive bowel sounds, no guarding, no rebound, no hepatosplenomegaly, no masses. EXTREMITIES: 2+ pulses, warm, well-perfused, no edema. NEUROLOGICAL: Cranial nerves II through XII grossly intact. Normal speech, gait not observed. PSYCH: Normal mood, normal affect. SKIN: Warm, dry, normal turgor, no rashes or lesions noted CBCD WBC 20.6 K/mm3 (4.0-10.0) H 08/25/19 06:05 RBC 4.41 M/mm3 (4.00-5.60) 08/25/19 06:05 Hgb 9.2 GM/dL (11.7-16.9) L 08/25/19 06:05 Hct 31.2 % (35.4-49) L 08/25/19 06:05 MCV 70.7 fl (80-96) L 08/25/19 06:05 MCHC 29.6 g/dl (32.0-35.9) L 08/25/19 06:05 RDW 30.6 % (11.9-15.9) H 08/25/19 06:05 Plt Count 306 K/MM3 (134-434) 08/25/19 06:05 MPV 8.8 fl (7.5-11.1) 08/25/19 06:05 CMP Sodium 140 mmol/L (136-145) 08/25/19 06:05 Potassium 4.3 mmol/L (3.5-5.1) 08/25/19 06:05 Chloride 107 mmol/L (98-107) 08/25/19 06:05 Carbon Dioxide 25 mmol/L (21-32) 08/25/19 06:05 Anion Gap 8 MMOL/L (8-16) 08/25/19 06:05 BUN 17.5 mg/dL (7-18) 08/25/19 06:05 Creatinine 0.7 mg/dL (0.55-1.3) 08/25/19 06:05 Random Glucose 133 mg/dL (74-106) H 08/25/19 06:05 Calcium 8.2 mg/dL (8.5-10.1) L 08/25/19 06:05 Total Bilirubin 0.5 mg/dL (0.2-1) 08/22/19 21:49 AST 72 U/L (15-37) H 08/22/19 21:49 ALT 112 U/L (13-61) H 08/22/19 21:49 Alkaline Phosphatase 93 U/L (45-117) 08/22/19 21:49 Total Protein 7.0 g/dl (6.4-8.2) 08/22/19 21:49 Albumin 3.1 g/dl (3.4-5.0) L 08/22/19 21:49 CARDIAC ENZYMES Troponin I < 0.02 ng/ml (0.00-0.05) 08/22/19 21:49 Current Medications Generic Name Dose Route Start Last Admin Trade Name Freq PRN Reason Stop Dose Admin Albuterol Sulfate 1 amp 08/23/19 18:02 08/24/19 05:29 Ventolin 0.083% Nebulizer Soln - NEB 1 amp Q4H PRN Administration SHORT OF BREATH/WHEEZING Albuterol Sulfate 2 puff 08/24/19 22:38 08/24/19 23:09 Ventolin Hfa Inhaler - IH 2 inh Q4H PRN Administration SHORT OF BREATH/WHEEZING Albuterol/Ipratropium 1 amp 08/23/19 12:00 08/24/19 20:25 Duoneb - NEB 1 amp RQID [facility] Administration Amlodipine Besylate 10 mg 08/23/19 10:00 08/24/19 09:31 Norvasc - PO 10 mg DAILY [facility] Administration Aspirin 81 mg 08/23/19 10:00 08/24/19 09:30 Ecotrin - PO 81 mg DAILY [facility] Administration Atorvastatin Calcium 10 mg 08/23/19 22:00 08/24/19 22:24 Lipitor - PO 10 mg HS [facility] Administration Budesonide/Formoterol Fumarate 1 puff 08/24/19 22:00 08/24/19 22:24 Symbicort 80/4.5mcg - IH 2 inh BID [facility] Administration Clonidine 0.3 mg 08/23/19 10:00 08/24/19 22:24 Catapres - PO 0.3 mg BID [facility] Administration Docusate Sodium 200 mg 08/24/19 15:15 08/24/19 16:03 Colace - PO 200 mg DAILY [facility] Administration Doxepin HCl 150 mg 08/23/19 22:00 08/24/19 23:10 Sinequan - PO 150 mg HS [facility] Administration Ferrous Sulfate 325 mg 08/23/19 10:00 08/24/19 09:30 Feosol - PO 325 mg DAILY [facility] Administration Guaifenesin 10 ml 08/23/19 22:04 08/24/19 11:11 Robitussin - PO 10 ml Q6H PRN Administration COUGH Sodium Chloride 1,000 mls @ 100 mls/hr 08/23/19 11:00 08/25/19 03:38 Normal Saline - IV 100 mls/hr ASDIR [facility] Administration Vancomycin HCl 1,000 mg in 250 mls @ 166.667 mls/hr 08/23/19 16:00 08/25/19 03:38 Vancomycin (Pre-Docked) IVPB 166.667 mls/hr Q12H [facility] Administration Protocol Cefepime HCl 1 gm/ Dextrose 100 mls @ 200 mls/hr 08/23/19 18:00 08/25/19 01: 43 IVPB 200 mls/hr Q8H-IV [facility] Administration Protocol Lorazepam 2 mg 08/23/19 06:00 08/25/19 06:56 Ativan - PO 2 mg TID [facility] Administration Methylprednisolone Sodium Succinate 40 mg 08/23/19 18:15 08/25/19 01:43 Solu-Medrol - IVPUSH 40 mg Q8H-IV [facility] Administration Non-Formulary Medication 1 each 08/24/19 10:00 Patient's Own Med PO DAILY [facility] Oseltamivir Phosphate 75 mg 08/23/19 00:30 08/24/19 22:25 Tamiflu - PO 08/28/19 00:29 75 mg BID [facility] Administration Senna 2 tab 08/24/19 22:00 08/24/19 22:23 Senna - PO Not Given HS [facility] Tamsulosin HCl 0.4 mg 08/23/19 08:30 08/24/19 08:17 Flomax - PO 0.4 mg DAILY@0830 [facility] Administration Home Medications Medication Instructions Recorded Amlodipine Besylate [Norvasc -] 10 mg PO DAILY 12/24/11 Budesonide/Formeterol Fumarate 1 inh PO BID 01/21/19 [SYMBICORT 80/4.5mcg -] Sennosides [Senna -] 2 tab PO HS PRN tablet 04/27/19 Tamsulosin HCl [Flomax -] 0.4 mg PO HS cap.er.24h 04/27/19 Simvastatin 40 mg PO DAILY 08/13/19 Aspirin [Aspirin EC] 81 mg PO DAILY 08/14/19 Dextroamphetamine/Amphetamine 20 mg PO DAILY 08/14/19 [Adderall Xr 20 mg Capsule] Doxepin HCl [Sinequan -] 150 mg PO HS 08/14/19 LORazepam [Lorazepam] 2 mg PO TID 08/14/19 cloNIDine HCL [Catapres -] 0.3 mg PO BID 08/14/19 Amoxicillin/Potassium Clav 1 each PO BID #10 tablet 08/18/19 [Augmentin 875-125 Tablet] Doxepin HCl [Sinequan -] 175 mg PO HS capsule 08/18/19 predniSONE [Deltasone -] 10 mg PO ASDIR #42 tablet 08/18/19 Microbiology 08/22/19 21:49 Blood - Peripheral Venous Blood Culture - Preliminary NO GROWTH OBTAINED AFTER 24 HOURS, INCUBATION TO CONTINUE FOR 4 DAYS. 08/22/19 21:49 Blood - Peripheral Venous Blood Culture - Preliminary NO GROWTH OBTAINED AFTER 24 HOURS, INCUBATION TO CONTINUE FOR 4 DAYS. ASSESSMENT AND PLAN: Patient is a 68yom with PMhx of HTN, hyperlipidemia, COPD, CAD, atrial fibrillation, BPH, anxiety, h/o TBI, and recent hospitalization at [facility] for PNA. is admitted for having sepsis # Sepsis: due to flu A, and PNA . s/p cefepime, continue with ceftin for 5 days as per ID #Influ. A continue tamiflu day 3/5 continue total of 5 days # Acute hypoxic resp failure: due to Flu, PNA, and Copd exacerbation , continue steroid on po taper dose , NEbs , BIPAP if needed # HTN: cont clonidine and norvasc # H/o bipolar, TBI, possible ADHD : has to bring Adderall frm home . cont ativan # H/o A fib: per records, he had refused to be on AC DVT PX: SCDs, patient refused AC
[2019-08-25] MEDS ORDERED: PT OWN MED DRAWER 7, Y5N ONE ×2 (09:00→16:55)
[2019-08-25] MEDS: cloNIDine HCL 0.1 MG TABLET PO SCH (09:10)
[2019-08-25] MEDS: ASPIRIN COATED 81 MG TABLET.EC PO SCH (09:10)
[2019-08-25] MEDS: amLODIPine BESYLATE 10 MG TABLET (FP) PO SCH (09:10)
[2019-08-25] MEDS: FERROUS SO4 325 MG TABLET (FP) PO SCH (09:10)
[2019-08-25] MEDS: TAMSULOSIN HCL 0.4 MG CAP PO SCH (09:11)
[2019-08-25] MEDS: DOCUSATE SODIUM 100 MG CAPSULE (FP) PO SCH (09:12)
[2019-08-25] MEDS: BUDESONIDE/FORMETEROL FUMARATE 80/4.5 mcg INHALER IH SCH (09:13)
[2019-08-25] MEDS: ALBUTEROL SO4 8 GM HFA INHALER IH PRN (09:24)
[2019-08-25] MEDS: OSELTAMIVIR PHOSPHATE 75 MG CAPSULE PO SCH (11:37)
--- NOTE | 2019-08-25 12:31 | PN ---
Progress Note (short form) - Note Progress Note: PULMONARY Breathing better, feels close to baseline. Wants to go home. Vital Signs Period Temp Pulse Resp BP Sys/Walter Pulse Ox Last 24 Hr 97.2 F-98.3 F 74-90 18-20 105-128/51-65 96-97 Gen: less tachypneic Heart: RRR Lung: scattered rhonchi, wheezes Abd: soft, nontender Ext: no edema CBC, BMP 08/25/19 06:05 08/25/19 06:05 Active Medications Albuterol Sulfate (Ventolin 0.083% Nebulizer Soln -) 1 amp NEB Q4H PRN PRN Reason: SHORT OF BREATH/WHEEZING Last Admin: 08/24/19 05:29 Dose: 1 amp Albuterol Sulfate (Ventolin Hfa Inhaler -) 2 puff IH Q4H PRN PRN Reason: SHORT OF BREATH/WHEEZING Last Admin: 08/25/19 09:24 Dose: 2 inh Albuterol/Ipratropium (Duoneb -) 1 amp NEB RQID [facility] Last Admin: 08/25/19 12:00 Dose: Not Given Amlodipine Besylate (Norvasc -) 10 mg PO DAILY [facility] Last Admin: 08/25/19 09:10 Dose: 10 mg Aspirin (Ecotrin -) 81 mg PO DAILY [facility] Last Admin: 08/25/19 09:10 Dose: 81 mg Atorvastatin Calcium (Lipitor -) 10 mg PO HS [facility] Last Admin: 08/24/19 22:24 Dose: 10 mg Budesonide/Formoterol Fumarate (Symbicort 80/4.5mcg -) 1 puff IH BID [facility] Last Admin: 08/25/19 09:13 Dose: 1 inh Clonidine (Catapres -) 0.3 mg PO BID [facility] Last Admin: 08/25/19 09:10 Dose: 0.3 mg Docusate Sodium (Colace -) 200 mg PO DAILY [facility] Last Admin: 08/25/19 09:12 Dose: Not Given Doxepin HCl (Sinequan -) 150 mg PO HS [facility] Last Admin: 08/24/19 23:10 Dose: 150 mg Ferrous Sulfate (Feosol -) 325 mg PO DAILY [facility] Last Admin: 08/25/19 09:10 Dose: 325 mg Guaifenesin (Robitussin -) 10 ml PO Q6H PRN PRN Reason: COUGH Last Admin: 08/24/19 11:11 Dose: 10 ml Sodium Chloride (Normal Saline -) 1,000 mls @ 100 mls/hr IV ASDIR [facility] Last Admin: 08/25/19 03:38 Dose: 100 mls/hr Vancomycin HCl (Vancomycin (Pre-Docked)) 1,000 mg in 250 mls @ 166.667 mls/hr IVPB Q12H [facility]; Protocol Last Admin: 08/25/19 03:38 Dose: 166.667 mls/hr Cefepime HCl 1 gm/ Dextrose 100 mls @ 200 mls/hr IVPB Q8H-IV [facility]; Protocol Last Admin: 08/25/19 09:12 Dose: 200 mls/hr Lorazepam (Ativan -) 2 mg PO TID [facility] Last Admin: 08/25/19 06:56 Dose: 2 mg Methylprednisolone Sodium Succinate (Solu-Medrol -) 40 mg IVPUSH Q8H-IV [facility] Last Admin: 08/25/19 09:12 Dose: 40 mg Non-Formulary Medication (Patient's Own Med) 1 each PO DAILY [facility] Oseltamivir Phosphate (Tamiflu -) 75 mg PO BID [facility] Stop: 08/28/19 00:29 Last Admin: 08/25/19 11:37 Dose: 75 mg Senna (Senna -) 2 tab PO HS [facility] Last Admin: 08/24/19 22:23 Dose: Not Given Tamsulosin HCl (Flomax -) 0.4 mg PO DAILY@0830 [facility] Last Admin: 08/25/19 09:11 Dose: Not Given A/P Influenza A Pneumonia Acute COPD/Bronchiectasis Exacerbation Atrial Fibrillation HTN h/o TBI Bipolar Disorder - tamiflu BID x 5 days - continue antibiotics - if going home, would change steroids to PO prednisone 40mg BID and taper slowly - inhaled bronchodilators standing and PRN - O2 to keep SpO2 90% - rate control - continue anticoagulation Problem List - Problems (1) Influenza A Code(s): J10.1 - FLU DUE TO OTH IDENT INFLUENZA VIRUS W OTH RESP MANIFEST (2) Pneumonia Code(s): J18.9 - PNEUMONIA, UNSPECIFIED ORGANISM Qualifiers: Pneumonia type: due to unspecified organism Laterality: unspecified laterality Lung location: unspecified part of lung Qualified Code(s): J18.9 - Pneumonia, unspecified organism (3) Bronchiectasis with (acute) exacerbation Code(s): J47.1 - BRONCHIECTASIS WITH (ACUTE) EXACERBATION (4) COPD exacerbation Code(s): J44.1 - CHRONIC OBSTRUCTIVE PULMONARY DISEASE W (ACUTE) EXACERBATION
[2019-08-25] MEDS: guaiFENesin 200 MG/10 ML 10 ML UNIT-DOSE CUPS PO PRN (13:46)
[2019-08-25 14:54] VITALS: BP 120/56; PULSE 92; TEMP 99.1
--- NOTE | 2019-08-25 16:44 | DS ---
Physical Exam: SUBJECTIVE: Patient seen and examined OBJECTIVE: Vital Signs Period Temp Pulse Resp BP Sys/Walter Pulse Ox Last 24 Hr 97.2 F-99.1 F 74-92 18-20 105-128/52-65 96-97 PHYSICAL EXAM GENERAL: The patient is alert. Mild agitated HEAD: Normal with no signs of trauma. EYES: sclera anicteric, conjunctiva clear. No ptosis. ENT: Ears normal, nares patent, oropharynx clear without exudates, moist mucous membranes. NECK: Trachea midline, full range of motion, supple. Neg cervical LAD LUNGS: b/l coarse BS, diffuse wheezes, no accessory muscle use. NC ~3L HEART: Regular rate and rhythm, S1, S2 without murmur, rub or gallop. ABDOMEN: Soft, nontender, nondistended, normoactive bowel sounds, no guarding, no rebound EXTREMITIES: 2+ pulses, warm, well-perfused, no edema. NEUROLOGICAL: mildly agitated speech PSYCH: agitated, anxious SKIN: Warm, dry, normal turgor, no rashes or lesions noted LABS Laboratory Results - last 24 hr 08/25/19 08/25/19 06:05 06:05 WBC 20.6 H RBC 4.41 Hgb 9.2 L Hct 31.2 L MCV 70.7 L MCH 20.9 L MCHC 29.6 L RDW 30.6 H Plt Count 306 MPV 8.8 Sodium 140 Potassium 4.3 Chloride 107 Carbon Dioxide 25 Anion Gap 8 BUN 17.5 Creatinine 0.7 Est GFR (CKD-EPI)AfAm 111.60 Est GFR (CKD-EPI)NonAf 96.29 Random Glucose 133 H Calcium 8.2 L Phosphorus 3.4 Magnesium 2.5 H HOSPITAL COURSE: Date of Admission:08/23/19 Date of Discharge: 08/25/19 68M with PMH of COPD, AFib, HTN, traumatic brain injury (TBI), and Bipolar disorder presented to the ER with SOB and a productive cough, along with left sided back/flank pain for the past 4 days. Admitted for respiratory distress and sepsis 2/2 viral PNA vs influenza. Influenza A positive. Started Tamiflu. CXR and CT chest showing multifocal b/l infiltrates. Initially given cefepime + vanco then Ceftin 500 BID x5d as outpatient. Pulm(Ernesto) evaluated. Given solumedrol then transitioned to Prednisone, slow taper. Anemia, to be w/u as outpt via GI. Stable for dc home. Minutes to complete discharge: 33 Discharge Summary Problems reviewed: Yes Reason For Visit: ACUTE BRONCHITIS WITH CHRONIC OBSTRUCTIVE Current Active Problems COPD with acute bronchitis (Acute) Influenza A (Acute) Condition: Stable - Instructions Diet, Activity, Other Instructions: You were evaluated in the hospital for fever and shortness of breath. Imaging had findings suggestive of diffuse pneumonia. Labwork showed that you were Influenza positive. You were started on intravenous antibiotics, and Tamiflu. Your breathing improved with inhaled breathing treatments and steroids. Your condition improved. MEDICATIONS: - New Medications: --Albuterol/Ipratropium[DUONEB] 1 ampule, every 6 hours, as needed for shortness of breath --Oseltamivir Phosphate[TAMIFLU] 75mg twice a day to be continued tonight, and completed 08/27/19 morning --Cefuroxime[CEFTIN] 500mg twice a day, for 5days --Prednisone[DELTASONE] with tapering dosages ---40mg twice a day x 2 days: 08/26/19 -- 08/27/19 ---30mg twice a day x 2 days: 08/28/19 -- 08/29/19 ---20mg twice a day x 2 days: 08/30/19 -- 08/31/19 ---10mg twice a day x 2 days: 09/01/19 -- 09/02/19 ---5mg twice a day x 2 days: 09/03/19 -- 09/04/19 ---5mg daily x 2 days: 09/05/19 -- 09/06/19 - continue your other previously prescribed medications Please follow-up with the physicians below: - Primary Care Physician: to discuss your recent hospitalization and chronic anemia - Garage Door Opener Installer(Ernesto): to discuss your COPD - Medical Accounting Clerk(Francisco): for outpatient upper and endoscopy, colonoscopy; to workup your chronic anemia Please seek immediate medical evaluation if you experience: - severe fever, chills - trouble breathing - confusion Referrals: Vale Beatty NP [Primary Care Provider] - Mary Singh DO [Staff Physician] - Biju Orozco MD, MD [Staff Physician] - Disposition: HOME - Home Medications Comprehensive Discharge Medication List: Ambulatory Orders Amlodipine Besylate [Norvasc -] 10 mg PO DAILY 12/24/11 Budesonide/Formeterol Fumarate [SYMBICORT 80/4.5mcg -] 1 inh PO BID 01/21/19 Tamsulosin HCl [Flomax -] 0.4 mg PO HS cap.er.24h 04/27/19 Simvastatin 40 mg PO DAILY 08/13/19 Dextroamphetamine/Amphetamine [Adderall Xr 20 mg Capsule] 20 mg PO DAILY Doxepin HCl [Sinequan -] 150 mg PO HS 08/14/19 LORazepam [Lorazepam] 2 mg PO TID 08/14/19 cloNIDine HCL [Catapres -] 0.3 mg PO BID 08/14/19 Albuterol 2.5/Ipratropium 0.5 [Duoneb -] 1 amp NEB RQID #30 amp 08/25/19 Cefuroxime Axetil [Cefuroxime] 500 mg PO Q12H #10 tablet 08/25/19 Nebulizer and Compressor [[place] Choice Nebulizer] 1 each MC ASDIR #1 each 08/25 Oseltamivir Phosphate [Tamiflu -] 75 mg PO BID #4 capsule 08/25/19 predniSONE [Deltasone -] See Taper PO ASDIR #42 tablet 08/25/19 This patient is new to me today: No Emergency Visit: No Critical Care patient: No - Discharge Referral Referred to [facility] No ATTENDING PHYSICIAN STATEMENT I saw and evaluated the patient. I reviewed the resident's note and discussed the case with the resident. I agree with the resident's findings and plan as documented. SUBJECTIVE: OBJECTIVE: ASSESSMENT AND PLAN:
== END 2019-08-25 18:18 | disposition home or self-care (01) | DRG 871 ==
LOC: JER 19:37 → JERBED 08-23 01:43 → J4S 08-23 09:47
PROVIDERS: ADMIT Internal Medicine; ATTEND Internal Medicine
DX: A41.89 Other specified sepsis (principal); J11.00 Influenza due to unidentified influenza virus with unspecified type of pneumonia; J96.01 Acute respiratory failure with hypoxia; J44.1 Chronic obstructive pulmonary disease with (acute) exacerbation; J98.11 Atelectasis; I48.91 Unspecified atrial fibrillation; F31.9 Bipolar disorder, unspecified; E78.5 Hyperlipidemia, unspecified; R00.0 Tachycardia, unspecified; I25.10 Atherosclerotic heart disease of native coronary artery without angina pectoris; N40.0 Benign prostatic hyperplasia without lower urinary tract symptoms; D72.829 Elevated white blood cell count, unspecified; E88.09 Other disorders of plasma-protein metabolism, not elsewhere classified; F90.9 Attention-deficit hyperactivity disorder, unspecified type; D64.9 Anemia, unspecified; Z87.820 Personal history of traumatic brain injury; Z99.81 Dependence on supplemental oxygen
CPT/HCPCS: 36415; 36600; 71045-TC-FY; 71250-TC; 76705-TC; 76775-TC; 80048; 80053; 81003; 82803; 83605; 83735; 84100; 84484; 85025; 85027; 85610; 85730; 87040; 87086; 87804; 93005; 93010; 94640; 97116-GP; 97161-GP; 99284-25; J0131; J0735; J7030

== ENCOUNTER 2019-08-26 06:15 | Inpatient (IN) | payer OTHER, MEDICARE ==
[2019-08-26] MEDS: ALBUTEROL SO4 2.5/IPRATROPIUM 0.5 INH SOL 3 ML VIAL.NEB. NEB SCH ×2 (06:30→23:30)
--- NOTE | 2019-08-26 06:45 | PDOC ---
Rapid Medical Evaluation Chief Complaint: SIRS, Suspected/Possible Time Seen by Provider: 08/26/19 06:42 Medical Evaluation: Allergies Allergy/AdvReac Type Severity Reaction Status Date / Time ketorolac [From Toradol] Allergy Verified 08/24/19 20:47 alprazolam [From Xanax] AdvReac Intermediate Verified 05/21/19 17:35 gatifloxacin [From Tequin] AdvReac Intermediate DIARRHEA Verified 05/21/19 17:35 lamotrigine [From Lamictal] AdvReac Intermediate Verified 05/21/19 17:35 quetiapine fumarate AdvReac Intermediate DIZZINESS, Verified 05/21/19 17:35 [From Seroquel] NIGHTMARES zolpidem tartrate AdvReac Mild DEPRESSION, Verified 05/21/19 17:35 [From Ambien] DISORIENTED nickel AdvReac Verified 05/21/19 17:35 trazodone AdvReac Verified 05/21/19 17:35 Vital Signs Temp Pulse Resp BP Pulse Ox 102.8 F H 116 H 22 H 112/71 95 08/26/19 06:35 08/26/19 06:20 08/26/19 06:20 08/26/19 06:20 08/26/19 06:35 08/26/19 06:42 Patient is 68M with history of COPD, AFib, HTN, traumatic brain injury (TBI), and Bipolar disorder, recently admitted for flu and multifocal pneumonia. Discharged yesterday on ceftin, prednisone taper. Patient states he felt better , then worse. PE: Patient is febrile, tachycardic, wheezing bilaterally, worse on right. BPs stable. Oxygen saturation stable. Receiving duoneb. Septic workup initiated. Discharge Disposition - Diagnosis Sepsis - Discharge Dispostion Condition at time of disposition: Stable - Referrals - Patient Instructions - Post Discharge Activity
[2019-08-26 07:01] LABS: VENOUS PC02 34.5 mmHg (38-52); VENOUS PH 7.53 (7.31-7.41)
[2019-08-26 07:03] LABS: VENOUS PO2 < 49 mmHg (28-48)
--- NOTE | 2019-08-26 07:08 | PDOC ---
History of Present Illness - General Chief Complaint: SIRS, Suspected/Possible Stated Complaint: FEVER Time Seen by Provider: 08/26/19 06:42 History Source: Patient Exam Limitations: No Limitations - History of Present Illness Initial Comments: 08/26/19 07:08 68yM with history of COPD, AFib, HTN, traumatic brain injury (TBI), anemia, and Bipolar disorder, presenting w fevers, poor appetite, wheezing, cough. Recently admitted to hospital for flu and multifocal pneumonia, sent home yesterday with cefuroxime, prednisone, tamiflu. Also admitted to [facility] from 08/13 to 08/18 for pneumonia and anemia (Hgb 5.5) with negative FOBT, normal echo, recommendeded outpatient GI f/u. Patient states he felt better, then worse. Denies nausea/ vomiting, chest pain, urinary/bowel mvmt changes. Past History - Past Medical History Allergies/Adverse Reactions: Allergies Allergy/AdvReac Type Severity Reaction Status Date / Time ketorolac [From Toradol] Allergy Verified 08/24/19 20:47 alprazolam [From Xanax] AdvReac Intermediate Verified 05/21/19 17:35 gatifloxacin [From Tequin] AdvReac Intermediate DIARRHEA Verified 05/21/19 17:35 lamotrigine [From Lamictal] AdvReac Intermediate Verified 05/21/19 17:35 quetiapine fumarate AdvReac Intermediate DIZZINESS, Verified 05/21/19 17:35 [From Seroquel] NIGHTMARES zolpidem tartrate AdvReac Mild DEPRESSION, Verified 05/21/19 17:35 [From Ambien] DISORIENTED nickel AdvReac Verified 05/21/19 17:35 trazodone AdvReac Verified 05/21/19 17:35 Home Medications: Ambulatory Orders Amlodipine Besylate [Norvasc -] 10 mg PO DAILY 12/24/11 Budesonide/Formeterol Fumarate [SYMBICORT 80/4.5mcg -] 1 inh PO BID 01/21/19 Tamsulosin HCl [Flomax -] 0.4 mg PO HS cap.er.24h 04/27/19 Simvastatin 40 mg PO DAILY 08/13/19 Dextroamphetamine/Amphetamine [Adderall Xr 20 mg Capsule] 20 mg PO DAILY Doxepin HCl [Sinequan -] 150 mg PO HS 08/14/19 LORazepam [Lorazepam] 2 mg PO TID 08/14/19 cloNIDine HCL [Catapres -] 0.3 mg PO BID 08/14/19 Albuterol 2.5/Ipratropium 0.5 [Duoneb -] 1 amp NEB RQID #30 amp 08/25/19 Cefuroxime Axetil [Cefuroxime] 500 mg PO Q12H #10 tablet 08/25/19 Nebulizer and Compressor [[place] Choice Nebulizer] 1 each MC ASDIR #1 each 08/25 Oseltamivir Phosphate [Tamiflu -] 75 mg PO BID #4 capsule 08/25/19 predniSONE [Deltasone -] See Taper PO ASDIR #42 tablet 08/25/19 Anemia: Yes Asthma: Yes Cancer: No Cardiac Disorders: Yes (AFIB) CVA: No COPD: Yes CHF: No Dementia: No Diabetes: No GI Disorders: Yes (GERD) Disorders: No HTN: Yes Hypercholesterolemia: Yes Liver Disease: Yes (BPH) Psychiatric Problems: Yes (ADD) Seizures: No Thyroid Disease: No - Surgical History Abdominal Surgery: No Appendectomy: No Cardiac Surgery: No Cholecystectomy: No Lung Surgery: No Neurologic Surgery: No Orthopedic Surgery: Yes (LT SHOULDER SX) - Immunization History Immunization Up to Date: Yes - Psycho Social/Smoking Cessation Hx Smoking Status: No Smoking History: Former smoker Have you smoked in the past 12 months: No Number of Cigarettes Smoked Daily: 0 If you are a former smoker, when did you quit?: [employer] Information on smoking cessation initiated: No 'Breaking Loose' booklet given: 06/07/16 Hx Alcohol Use: No Drug/Substance Use Hx: No Substance Use Type: None Hx Substance Use Treatment: No Review of Systems - Review of Systems Constitutional: Yes: Fever. No: Chills HEENTM: No: Eye Pain, Nose Pain, Throat Pain Respiratory: Yes: Cough, Wheezing Cardiac (ROS): No: Chest Pain, Palpitations ABD/GI: Yes: Poor Appetite. No: Abdominal Distended, Constipated, Diarrhea, Nausea, Vomiting : No: Burning, Dysuria Musculoskeletal: No: Back Pain, Joint Pain Integumentary: No: Bruising, Flushing Neurological: No: Headache, Seizure, Tingling Psychiatric: No: Anxiety, Depression Endocrine: No: Intolerance to Cold, Intolerance to Heat Hematologic/Lymphatic: No: Blood Clots, Easy Bleeding *Physical Exam - Vital Signs Last Vital Signs Temp Pulse Resp BP Pulse Ox 102.8 F H 116 H 22 H 112/71 95 08/26/19 06:35 08/26/19 06:20 08/26/19 06:20 08/26/19 06:20 08/26/19 06:55 - Physical Exam General Appearance: Yes: Nourished, Appropriately Dressed, Moderate Distress HEENT: positive: EOMI, SEGUNDO, Normal Voice, Hearing Grossly Normal. negative: Scleral Icterus (R), Scleral Icterus (L) Respiratory/Chest: positive: Rapid RR, Wheezing (liz). negative: Chest Tender, Accessory Muscle Use, Labored Respiration, Crackles, Rales, Rhonchi, Stridor Cardiovascular: positive: Regular Rhythm, S1, S2, Tachycardia. negative: Murmur Extremity: positive: Delayed Capillary Refill Integumentary: positive: Normal Color, Dry, Warm Neurologic: positive: special effects artist II-XII NML intact, Fully Oriented, Alert, Normal Mood/ Affect, Normal Response, Responsive. negative: Sensory Deficit, Confused, Disoriented ED Treatment Course - LABORATORY CBC & Chemistry Diagram: 08/26/19 06:45 08/26/19 06:45 - ADDITIONAL ORDERS Additional order review: Laboratory Results 08/26/19 06:45 VBG pH 7.53 H POC VBG pCO2 34.5 L POC VBG pO2 < 49 H VBG HCO3 28.8 VBG O2 Sat (Laura) 82.0 H VBG Base Excess 6.2 H Medical Decision Making - Medical Decision Making 08/26/19 07:21 EKG shows sinus tachycardia, HR 121, QTc 434, no ST changes chest CT - worsening chronic intersitial lung disease w honeycombing, increased consolidation/atelectasis w calcifications in RLL and consolidation in RUL/ posterior suggestive of PNA, stable 5mm nodule in RML WBC 14, Hgb 10 (baseline), pH 7.53 hypoxic hypocapnic respiratory alkalosis --- 68yM with history of COPD, AFib, HTN, traumatic brain injury (TBI), anemia, and Bipolar disorder, presenting w fevers, poor appetite, wheezing, cough. Has fever 102, tachcardic, tachypnic, hypoxic Sepsis 2/2 flu and RLL/RUL PNA (on chest CT). Also has COPD exacerbation requiring supplemental O2 (wheezing). Low concern for UTI (clean) vs ACS (no chest pain/SOB, neg trop, no ST changes) Given 30mL/kg NS, vanc, cefepime, duonebx4, solumedrol. Sat 95 on 5L NC Admitted m/s Dr Jimenez for sepsis 2/2 HCAP and flu, COPD exacerbation, on supplemental O2 Discharge - Discharge Information Problems reviewed: Yes Clinical Impression/Diagnosis: COPD exacerbation, Acute hypoxemic respiratory failure Sepsis Qualifiers: Sepsis type: sepsis due to unspecified organism Sepsis acute organ dysfunction status: with acute organ dysfunction Severe sepsis acute organ dysfunction type : acute respiratory failure Acute respiratory failure type: with hypoxia Severe sepsis shock status: without septic shock Qualified Code(s): A41.9 - Sepsis, unspecified organism Pneumonia Qualifiers: Pneumonia type: due to unspecified organism Laterality: right Lung location: lower lobe of lung Qualified Code(s): J18.9 - Pneumonia, unspecified organism Condition: Improved - Follow up/Referral Referrals: Deacon Lujan MD [Primary Care Provider] - - Patient Discharge Instructions - Post Discharge Activity
[2019-08-26 07:10] LABS: BASO % 0.3 % (0-2.0); HEMATOCRIT 33.4 % (35.4-49); HEMOGLOBIN 10.4 GM/dL (11.7-16.9); MCH 21.6 pg (25.7-33.7); MCHC 31.2 g/dl (32.0-35.9); MEAN CELL VOLUME 69.2 fl (80-96); MEAN PLT VOLUME 8.5 fl (7.5-11.1); MONO % 3.8 % (3.8-10.2); NEUT % 81.9 % (42.8-82.8); PLATELET COUNT 318 K/MM3 (134-434); RBC 4.82 M/mm3 (4.00-5.60); RDW 31.7 % (11.9-15.9); WHITE BLOOD COUNT 14.7 K/mm3 (4.0-10.0)
[2019-08-26] MEDS ORDERED: methylPREDNISolone NA SUCC 125 MG/2 ML VIAL IVPB ONE (07:12)
[2019-08-26] MEDS ORDERED: VANCOMYCIN 1 GM in D5W (PRE-DOCKED) 1,000 MG/250 ML IVPB ONE (07:12)
[2019-08-26] MEDS ORDERED: SODIUM CHLORIDE 2,722 ML IV ONE (07:13)
[2019-08-26 07:14] LABS: URINE APPEARANCE CLEAR; URINE BILIRUBIN NEGATIVE (NEGATIVE); URINE COLOR YELLOW; URINE GLUCOSE (UA) NEGATIVE (NEGATIVE); URINE KETONE NEGATIVE (NEGATIVE); URINE LEUK ESTERASE NEGATIVE (NEGATIVE); URINE NITRITE NEGATIVE (NEGATIVE); URINE PROTEIN NEGATIVE (NEGATIVE); URINE UROBILINOGEN 0.2 mg/dL (0.2-1.0)
[2019-08-26] MEDS ORDERED: CEFTRIAXONE 1 GM in DEXTROSE 5%-WATER - 100 ML IVPB ONE (07:18)
[2019-08-26] MEDS ORDERED: AZITHROMYCIN IVPB 500 MG in DEXTROSE 5%-WATER - 250 ML IVPB ONE (07:18)
[2019-08-26 07:26] LABS: INR 1.28 (0.83-1.09); PROTHROMBIN TIME (PATIENT) 15.2 SEC (9.7-13.0)
[2019-08-26 07:28] LABS: ACTIVATED PTT 27.7 SECONDS (25.2-36.5)
[2019-08-26] MEDS ORDERED: ACETAMINOPHEN 1000 MG/100 ML VIAL (NON FORMULARY) IVPB ONE (07:29)
[2019-08-26 07:35] LABS: ALBUMIN 2.6 g/dl (3.4-5.0); BILIRUBIN,TOTAL 0.4 mg/dL (0.2-1); BLOOD UREA NITROGEN 17.8 mg/dL (7-18); CALCIUM 8.4 mg/dL (8.5-10.1); POTASSIUM 4.1 mmol/L (3.5-5.1); TOT PROT 6.3 g/dl (6.4-8.2)
[2019-08-26] MEDS ORDERED: CEFEPIME HCL/D5W 1 GM/50 ML BAG IVPB ONE (07:46)
[2019-08-26] MEDS ORDERED: VANCOMYCIN HCL 1,500 MG in DEXTROSE 5%-WATER - 500 ML IVPB ONE (07:47)
--- NOTE | 2019-08-26 08:11 | PDOC ---
Attending Attestation - Resident Resident Name: Gibran Hernandez - ED Attending Attestation I have performed the following: I have examined & evaluated the patient, The case was reviewed & discussed with the resident, I agree w/resident's findings & plan - HPI HPI: 08/26/19 07:49 68yM with history of COPD, AFib, HTN, traumatic brain injury (TBI), anemia, and Bipolar disorder, presenting w fevers, poor appetite, wheezing, cough. Patient was admitted from 08/13 to 08/18/2019 for COPD exacerbation at [place] , negative FOBT, normal echo, recommendeded outpatient GI f/u.as well as from to 08/25/2023 influenza and multifocal pneumonia, at that time treated with Tamiflu and broad-spectrum antibiotics discharged on Ceftin twice daily for 5 more days as outpatient as well as a prednisone taper for his COPD and tamiflu - Physicial Exam PE: 08/26/19 07:52 Agree with the resident's HPI and PE as documented in the electronic medical record. Malaised appearing EOMI, PERRL, nl conjunctiva, anicteric; dry mucous membranes neck supple. Bilateral inspiratory and expiratory wheezing, tachycardia, no murmurs abdomen soft nontender. no rebound, guarding. Back nontender. JAVED x4, no focal neuro deficits. No peripheral edema. normal color for ethnicity, WWP. - Medical Decision Making 08/26/19 07:53 Vital Signs Temp Pulse Resp BP Pulse Ox 102.8 F H 116 H 22 H 112/71 95 08/26/19 06:35 08/26/19 06:20 08/26/19 06:20 08/26/19 06:20 08/26/19 06:55 Differential diagnosis includes pneumonia, influenza, possible complications, viral syndrome, abscess, effusion, dehydration, anemia, electrolyte/metabolic derangements VS reviewed, +fever, tachy and hypoxia initially 88%, placed on supp O2 and improved to 95%. tylenol, IVF IV abx Vancomycin and cefepime to cover for broad spec organisms, pseudomonas and mrsa risk with recent hospitalization and medical comorbidities. cultures pending CT chest to eval for pulmonary complications Sinus tachycardia 121 bpm, no ST changes, unremarkable EKG otherwise 08/26/19 08:40 Laboratory results notable for leukocytosis 14 point 7K, baseline anemia 10.4/ 33.4, coags are normal, VBG is unremarkable with mildly elevated pH at 7.53 likely a chronic retainer with COPD history and no significant derangements otherwise, UA is negative preliminarily for infection. Lactic acid is also normal reassuring at 1.9 VS improving, fever down, no long tachy on COPD for his O2, and comfort. 08/26/19 11:37 CT chest with chronic interstitial lung disease and honeycombing, worse than previous, increased consolidation with tiny calcifications in the right lower lobe, stable pulmonary nodule in the right middle lobe. Findings are suggestive of pneumonia Patient admitted to hospitalist team, Dr Jimenez hospitalist team at bedside and had discussion with patient, see documentation dispo: admit to medical unit, hospitalist service, abx, supportive care, O2 08/26/19 11:37 08/26/19 11:38 08/26/19 12:21 Heart Score/ECG Review #1 ECG reviewed & interpreted by me at: 07:00 General ECG Interpretation: Sinus Rhythm, Normal Intervals Compared to previous ECG there are: Changes noted 08/26/19 08:37 EKG sinus tachycardia 121 bpm, no interval abnormalities, narrow QRS, ST and T wave segments and morphology normal
[2019-08-26] MEDS ORDERED: VANCOMYCIN 1 GRAM (PRE-DOCKED) 1,000 MG/250 ML BAG IVPB ONE (08:51)
[2019-08-26] MEDS ORDERED: VANCOMYCIN 500 MG VIAL (RESTRICTED TO ID ONLY) ONE (08:51)
[2019-08-26] MEDS ORDERED: methylPREDNISolone NA SUCC 125 MG/2 ML VIAL ONE (08:51)
[2019-08-26] MEDS ORDERED: ACETAMINOPHEN INJECTION 100 ML IVPB ONE (08:51)
[2019-08-26] MEDS ORDERED: CEFEPIME 1 GM/100 ML BAG IVPB ONE (09:24)
[2019-08-26 10:14] LABS: ANISOCYTOSIS 1+; MACROCYTOSIS 0; PLATELET ESTIMATE NORMAL
[2019-08-26] MEDS ORDERED: ALBUTEROL SO4 2.5/IPRATROPIUM 0.5 INH SOL 3 ML VIAL.NEB. NEB ONE ×2 (10:49→14:16)
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
[2019-08-26] MEDS ORDERED: VANCOMYCIN HCL 1,500 MG in DEXTROSE 5%-WATER - 250 ML IVPB SCH (12:00)
[2019-08-26] MEDS ORDERED: SODIUM CHLORIDE FOR INHALATION 3 ML VIAL.NEB IH PRN (12:03)
[2019-08-26] MEDS: ENOXAPARIN NA (PORCINE) 40 MG/0.4 ML DISP.SYRIN SQ SCH (12:11)
[2019-08-26] MEDS ORDERED: PIPERACILLIN/TAZOB 4.5 GM 4.5 GM/100 ML BAG IVPB ONE (12:19)
[2019-08-26] MEDS: PIPERACILLIN/TAZOB 4.5 GM 4.5 GM in DEXTROSE 5%-WATER 100 ML IVPB SCH (12:22)
[2019-08-26 12:49] LABS: ARTERIAL BLD GAS O2 SATURATION 93.7 % (95-98); ARTERIAL BLOOD GAS BASE EXCESS 2.3 meq/l (-2-2); ARTERIAL BLOOD GAS PCO2 31.4 mmHg (35-45); ARTERIAL BLOOD GAS PO2 65.9 mmHg (80-100); ARTERIAL BLOOD GAS pH 7.51 (7.35-7.45)
[2019-08-26 12:54] LABS: ALLENS TEST POSITIVE
--- NOTE | 2019-08-26 14:11 | PN ---
Teaching Attending Note Name of Resident: Fareed Estes ATTENDING PHYSICIAN STATEMENT I saw and evaluated the patient. I reviewed the resident's note and discussed the case with the resident. I agree with the resident's findings and plan as documented. SUBJECTIVE: Patient is a 68yom with Pmhx of HTN, COPD, bronchiectasis, chronic hypoxic respiratory failure, atrial fibrillation, h/o TBI, BPH, bipolar disorder who was just discharged after hospitalization for influenza/pneumonia/with COPD exacerbation. Today comes back to ED. for having worsening shortness of breath and fevers. Reports fevers of 103, c/o having nonproductive cough, wheezing with generalized malaise. OBJECTIVE: Vital Signs Temperature 98 F 08/26/19 10:51 Pulse Rate 95 H 08/26/19 10:51 Respiratory Rate 26 H 08/26/19 10:51 Blood Pressure 125/71 08/26/19 10:51 O2 Sat by Pulse Oximetry (%) 94 L 08/26/19 10:51 GENERAL: The patient is awake, alert, oriented, with mild distress on exertion HEAD: Normal with no signs of trauma. EYES: PERRL, extraocular movements intact, sclera anicteric, conjunctiva clear. ENT: Ears normal, oropharynx clear without exudates, moist mucous membranes. NECK: Trachea midline, full range of motion, supple. LUNGS: decreased BS BL, + wheezes/Rhonchi. HEART: Regular rate and rhythm, S1, S2 without murmur, rub or gallop. ABDOMEN: Soft, NT,ND, no guarding, no rebound, no hepatosplenomegaly, no masses. EXTREMITIES: 2+ pulses, warm, well-perfused, no edema. NEUROLOGICAL: Cranial nerves II through XII grossly intact. Normal speech, gait not observed. PSYCH: Normal mood, normal affect. SKIN: Warm, dry, normal turgor, no rashes or lesions noted CBCD WBC 14.7 K/mm3 (4.0-10.0) H 08/26/19 06:45 RBC 4.82 M/mm3 (4.00-5.60) 08/26/19 06:45 Hgb 10.4 GM/dL (11.7-16.9) L 08/26/19 06:45 Hct 33.4 % (35.4-49) L 08/26/19 06:45 MCV 69.2 fl (80-96) L 08/26/19 06:45 MCHC 31.2 g/dl (32.0-35.9) L 08/26/19 06:45 RDW 31.7 % (11.9-15.9) H 08/26/19 06:45 Plt Count 318 K/MM3 (134-434) 08/26/19 06:45 MPV 8.5 fl (7.5-11.1) 08/26/19 06:45 CMP Sodium 135 mmol/L (136-145) L 08/26/19 06:45 Potassium 4.1 mmol/L (3.5-5.1) 08/26/19 06:45 Chloride 99 mmol/L (98-107) 08/26/19 06:45 Carbon Dioxide 27 mmol/L (21-32) 08/26/19 06:45 Anion Gap 10 MMOL/L (8-16) 08/26/19 06:45 BUN 17.8 mg/dL (7-18) 08/26/19 06:45 Creatinine 1.0 mg/dL (0.55-1.3) 08/26/19 06:45 Random Glucose 107 mg/dL (74-106) H 08/26/19 06:45 Calcium 8.4 mg/dL (8.5-10.1) L 08/26/19 06:45 Total Bilirubin 0.4 mg/dL (0.2-1) 08/26/19 06:45 AST 71 U/L (15-37) H 08/26/19 06:45 ALT 122 U/L (13-61) H 08/26/19 06:45 Alkaline Phosphatase 81 U/L (45-117) 08/26/19 06:45 Total Protein 6.3 g/dl (6.4-8.2) L 08/26/19 06:45 Albumin 2.6 g/dl (3.4-5.0) L 08/26/19 06:45 CARDIAC ENZYMES Troponin I < 0.02 ng/ml (0.00-0.05) 08/26/19 06:45 Current Medications Generic Name Dose Route Start Last Admin Trade Name Freq PRN Reason Stop Dose Admin Enoxaparin Sodium 40 mg 08/26/19 12:00 08/26/19 12:11 Lovenox - SQ 40 mg DAILY CHUCK Administration Azithromycin 500 mg in 250 mls @ 250 mls/hr 08/27/19 10:00 Zithromax 500mg Ivpb (Pre-Docked) IVPB DAILY CHUCK Vancomycin HCl 1,500 mg/ 250 mls @ 125 mls/hr 08/26/19 12:00 08/26/19 12:10 Dextrose IVPB Not Given Q12H CHUCK Protocol Piperacillin Sod/Tazobactam 100 mls @ 200 mls/hr 08/26/19 12:15 08/26/19 12: 22 Sod 4.5 gm/ Dextrose IVPB 200 mls/hr Q6H-IV CHUCK Administration Protocol Piperacillin Sod/Tazobactam 100 mls @ 200 mls/hr 08/26/19 16:00 Sod 4.5 gm/ Dextrose IVPB 08/27/19 03:29 Q6H-IV CHUCK Protocol Methylprednisolone Sodium Succinate 60 mg 08/26/19 15:00 Solu-Medrol - IVPUSH Q6H-IV CHUCK Sodium Chloride 3 ml 08/26/19 12:03 Normal Saline For Inhalation - IH Q6H PRN Dyspnea Home Medications Medication Instructions Recorded Amlodipine Besylate [Norvasc -] 10 mg PO DAILY 12/24/11 Budesonide/Formeterol Fumarate 1 inh PO BID 01/21/19 [SYMBICORT 80/4.5mcg -] Tamsulosin HCl [Flomax -] 0.4 mg PO HS cap.er.24h 04/27/19 Simvastatin 40 mg PO DAILY 08/13/19 Dextroamphetamine/Amphetamine 20 mg PO DAILY 08/14/19 [Adderall Xr 20 mg Capsule] Doxepin HCl [Sinequan -] 150 mg PO HS 08/14/19 LORazepam [Lorazepam] 2 mg PO TID 08/14/19 cloNIDine HCL [Catapres -] 0.3 mg PO BID 08/14/19 Albuterol 2.5/Ipratropium 0.5 1 amp NEB RQID #30 amp 08/25/19 [Duoneb -] Cefuroxime Axetil [Cefuroxime] 500 mg PO Q12H #10 tablet 08/25/19 Nebulizer and Compressor [[place] 1 each ASDIR #1 each 08/25/19 Choice Nebulizer] Oseltamivir Phosphate [Tamiflu -] 75 mg PO BID #4 capsule 08/25/19 predniSONE [Deltasone -] See Taper PO ASDIR #42 tablet 08/25/19 CT of the chest: chronic interstitial lung disease with honey combing ,worsened since the prior examination. increased consolidation/atelectasis with multiple tiny calcification in the right lobe 5mm pulmonary nodule in the right middle lobe , 6mm interval consolidation in the right upper lobe post.suggestive of pneumonia. close follow up needed. ASSESSMENT AND PLAN: Patient is a 68yom with PMhx of HTN, HLD, COPD, CAD, atrial fibrillation, BPH, anxiety, h/o TBI, and recent hospitalization at [facility] for PNA. is admitted for having acute shortness of breath and subjective fever of 103 at home. # Acute on Chronic Hypoxic Respiratory Failure: cannot r/o HCAP since was admitted recently for influ A, Pna willcontinue with EMPIRIC ZOSYN/ VANCOMYCIN as per ID , follow c/s . on solumedrol IV , nebs,f/u with cs ,O2 to keep SpO2>90 % # s/p Influenza A completed tamiflu ,total of 5 days #Acute Copd exacerbation , continue steroid on po taper dose , NEbs , BIPAP if needed # HTN: cont clonidine and norvasc # H/o bipolar, TBI, possible ADHD : has to bring Adderall from home . cont ativan # H/o A fib: per records, he had refused to be on AC outpt f/u of chest imaging to ensure resolution of infiltrates DVT Px: Lovenox
[2019-08-26] MEDS: methylPREDNISolone NA SUCC 40 MG/1 ML VIAL IVPUSH SCH ×2 (15:40→21:48)
[2019-08-26] MEDS ORDERED: PIPERACILLIN/TAZOB 4.5 GM 4.5 GM in DEXTROSE 5%-WATER 100 ML IVPB SCH (16:00)
--- NOTE | 2019-08-26 16:12 | PN ---
Progress Note (short form) - Note Progress Note: ID CONSULT DICTATED ACUTE EXACERBATION COPD R/O HCAP RECENT INFLUENZA AWAIT C/S EMPIRIC ZOSYN/ VANCOMYCIN
[2019-08-26] MEDS ORDERED: guaiFENesin 200 MG/10 ML 10 ML UNIT-DOSE CUPS PO PRN (16:40)
[2019-08-26] MEDS ORDERED: PIPERACILLIN/TAZOBACTAM 3.375 GM VIAL IVPB ONE (16:49)
[2019-08-26] MEDS ORDERED: DEXTROSE 5%-WATER - 50 ML IVPB ONE (16:49)
[2019-08-26] MEDS: ACETAMINOPHEN 325 MG TABLET (FP) PO PRN (16:52)
--- NOTE | 2019-08-26 16:53 | CONS ---
INFECTIOUS DISEASE CONSULTATION DATE OF CONSULTATION: 08/26/2019 HISTORY: The patient is a 68-year-old with 2 recent hospital admissions now re-admitted with shortness of breath, wheezing, and fever. The patient was hospitalized at [facility] from August 13 through August 18 for pneumonia. He was treated empirically with Zithromax and ceftriaxone and was switched to Augmentin to be completed as an outpatient. He was also on tapering doses of prednisone. He returned to the ER, however, after he developed worsening cough, shortness of breath, arthralgias, myalgias, and high-grade fever. A rapid flu swab was performed and was positive for influenza A. The patient was started on Tamiflu and was empirically treated with vancomycin and cefepime for possible superimposed pneumonia. At the present time, he is awake. He complains of high-grade fever, wheezing, and cough. He states he was adherent to his outpatient medications. CAT scan of the chest now shows worsening consolidations in the right lung field. PAST MEDICAL HISTORY: Positive for COPD, atrial fibrillation, hypertension, hyperlipidemia, bipolar disorder, traumatic brain injury, BPH. ALLERGIES: To multiple medications including ALPRAZOLAM, GATIFLOXACIN, AMBIEN, TRAZODONE, LAMOTRIGINE, and QUETIAPINE. SOCIAL HISTORY: Resides in the community. No active tobacco use. SYSTEMS REVIEW: Neurologic: Positive for bipolar disorder and history of traumatic brain injury. Cardiac: History of atrial fibrillation. Apparently not on anticoagulation. Respiratory: As per HPI. Gastrointestinal: Negative vomiting or diarrhea. Genitourinary: Negative for urinary tract infection. LABORATORY DATA: White count 14.7, hematocrit 33.4, platelet count 318, creatinine 1.0. Urinalysis negative. PHYSICAL EXAMINATION: General: He is awake. He is seated on the stretcher in the emergency room. He appears slightly short of breath at rest on nasal cannula. Patient is weak appearing. Vital Signs: Temperature 98.8, blood pressure 117/95, pulse 95 regular, respirations 24 per minute, maximum temperature 102.8. HEENT: Sclerae anicteric. Heart: Sounds S1, S2. Lungs: Bilateral rhonchi. Abdomen: Soft. Nontender. Extremities: Negative for edema. Negative Homans sign. No evidence of catheter-related phlebitis in the upper extremities. IMPRESSION: 1. Acute exacerbation of chronic obstructive pulmonary disease. 2. Healthcare-acquired pneumonia. 3. Recent influenza A. 4. History of bipolar disorder. 5. History of traumatic brain injury. PLAN: Obtain sputum culture, urine Legionella, and pneumococcal antigens. Empiric antibiotic coverage for suspected hospital-acquired pneumonia with vancomycin and Zosyn. Complete course of Tamiflu. Pulmonary evaluation. We will follow. Thank you for the kind referral. TIFFANIE KU M.D. [id number]
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
[2019-08-26 18:32] VITALS: BMI 27.6
[2019-08-26] MEDS: PIPERACILLIN/TAZOB 3.375 GM 3.375 GM in DEXTROSE 5%-WATER - 50 ML IVPB SCH (18:50)
[2019-08-26] MEDS: guaiFENesin/D-M SUGAR-FREE/ACLHOL-FREE 118 ML BOTTLE PO PRN (18:51)
[2019-08-26] MEDS: OSELTAMIVIR PHOSPHATE 75 MG CAPSULE PO SCH (21:47)
[2019-08-26] MEDS: VANCOMYCIN 1 GRAM (PRE-DOCKED) 1,000 MG/250 ML BAG IVPB SCH (21:47)
[2019-08-26] MEDS ORDERED: MAG HYDROX/AL HYDROX/SIMETH 30 ML UNIT-DOSE CUP PO ONE (23:20)
[2019-08-27] MEDS ORDERED: ALBUTEROL SO4 2.5/IPRATROPIUM 0.5 INH SOL 3 ML VIAL.NEB. NEB ONE (00:15)
[2019-08-27] MEDS ORDERED: PIPERACILLIN/TAZOBACTAM 3.375 GM VIAL IVPB ONE ×3 (00:24→17:02)
[2019-08-27] MEDS ORDERED: DEXTROSE 5%-WATER - 50 ML IVPB ONE ×3 (00:24→17:02)
[2019-08-27] MEDS: LORazepam 1 MG TABLET PO PRN ×4 (00:52→21:41)
[2019-08-27] MEDS: guaiFENesin/D-M SUGAR-FREE/ACLHOL-FREE 118 ML BOTTLE PO PRN ×3 (01:08→21:41)
[2019-08-27] MEDS: PIPERACILLIN/TAZOB 3.375 GM 3.375 GM in DEXTROSE 5%-WATER - 50 ML IVPB SCH ×3 (01:29→17:05)
[2019-08-27] MEDS: ACETAMINOPHEN 325 MG TABLET (FP) PO PRN ×2 (02:20→17:04)
[2019-08-27] MEDS: BUDESONIDE/FORMETEROL FUMARATE 80/4.5 mcg INHALER IH SCH ×5 (02:23→21:24)
[2019-08-27] MEDS: methylPREDNISolone NA SUCC 40 MG/1 ML VIAL IVPUSH SCH ×3 (02:30→17:06)
[2019-08-27] MEDS: PIPERACILLIN/TAZOB 4.5 GM 4.5 GM in DEXTROSE 5%-WATER 100 ML IVPB SCH (04:56)
[2019-08-27] MEDS: ALBUTEROL SO4 0.083% IH SOL 2.5 MG/3 ML VIAL.NEB. NEB PRN (06:35)
[2019-08-27 08:49] LABS: BASO % 0.3 % (0-2.0); HEMOGLOBIN 9.3 GM/dL (11.7-16.9); LYMPH % 2.4 % (8-40); MCH 20.9 pg (25.7-33.7); MCHC 29.9 g/dl (32.0-35.9); MEAN PLT VOLUME 9.1 fl (7.5-11.1); MONO % 3.2 % (3.8-10.2); NEUT % 94.1 % (42.8-82.8); PLATELET COUNT 265 K/MM3 (134-434); RBC 4.43 M/mm3 (4.00-5.60); RDW 31.6 % (11.9-15.9); WHITE BLOOD COUNT 11.3 K/mm3 (4.0-10.0)
[2019-08-27 08:59] LABS: INR 1.28 (0.83-1.09); PROTHROMBIN TIME (PATIENT) 15.1 SEC (9.7-13.0)
[2019-08-27] MEDS: ALBUTEROL SO4 2.5/IPRATROPIUM 0.5 INH SOL 3 ML VIAL.NEB. NEB SCH ×4 (09:10→20:27)
[2019-08-27 09:12] LABS: BLOOD UREA NITROGEN 17.4 mg/dL (7-18); CALCIUM 8.1 mg/dL (8.5-10.1); CREATININE 0.7 mg/dL (0.55-1.3); MAGNESIUM 2.6 mg/dL (1.8-2.4); PHOSPHOROUS 2.8 mg/dL (2.5-4.9); POTASSIUM 3.5 mmol/L (3.5-5.1)
[2019-08-27] MEDS ORDERED: PT OWN MED DRAWER 7, Y5N ONE ×3 (09:23→20:57)
[2019-08-27] MEDS: OSELTAMIVIR PHOSPHATE 75 MG CAPSULE PO SCH ×2 (09:27→21:25)
[2019-08-27] MEDS: ENOXAPARIN NA (PORCINE) 40 MG/0.4 ML DISP.SYRIN SQ SCH (09:29)
[2019-08-27] MEDS ORDERED: AZITHROMYCIN IVPB 500 MG/250 ML BAG IVPB SCH (10:00)
[2019-08-27] MEDS: VANCOMYCIN 1 GRAM (PRE-DOCKED) 1,000 MG/250 ML BAG IVPB SCH ×2 (10:07→21:25)
[2019-08-27 11:48] LABS: ANISOCYTOSIS 1+; MACROCYTOSIS 0; OVALOCYTE 1+; PLATELET ESTIMATE NORMAL; TEAR DROP CELLS 1+
--- NOTE | 2019-08-27 12:32 | PN ---
Progress Note (short form) - Note Progress Note: PULMONARY States he feels better today. Less congestion. No fevers. Vital Signs Period Temp Pulse Resp BP Sys/Walter Pulse Ox Last 24 Hr 98.6 F-99.1 F 86-95 20-26 117-127/58-95 93-95 Gen: NAD at rest Heart: RRR Lung: distant breath sounds Abd: soft, nontender Ext: no edema CBC, BMP 08/27/19 07:10 08/27/19 07:10 Active Medications Acetaminophen (Tylenol -) 650 mg PO Q6H PRN PRN Reason: Fever Or Pain Last Admin: 08/27/19 02:20 Dose: 650 mg Albuterol Sulfate (Ventolin 0.083% Nebulizer Soln -) 1 amp NEB Q4H PRN PRN Reason: SHORT OF BREATH/WHEEZING Last Admin: 08/27/19 06:35 Dose: 1 amp Albuterol/Ipratropium (Duoneb -) 1 amp NEB RQID [facility]UCK Last Admin: 08/27/19 09:10 Dose: 1 amp Budesonide/Formoterol Fumarate (Symbicort 80/4.5mcg -) 2 puff IH BID CHUCK Last Admin: 08/27/19 09:28 Dose: 2 puff Enoxaparin Sodium (Lovenox -) 40 mg SQ DAILY [facility]UCK Last Admin: 08/27/19 09:29 Dose: 40 mg Guaifenesin (Diabetic Tussin Dm -) 10 ml PO Q4H PRN PRN Reason: COUGH Last Admin: 08/27/19 11:56 Dose: 10 ml Piperacillin Sod/Tazobactam (Sod 3.375 gm/ Dextrose) 50 mls @ 100 mls/hr IVPB Q8H-IV CHUCK; Protocol Last Admin: 08/27/19 09:27 Dose: 100 mls/hr Vancomycin HCl (Vancomycin (Pre-Docked)) 1,000 mg in 250 mls @ 166.667 mls/hr IVPB BID CHUCK; Protocol Last Admin: 08/27/19 10:07 Dose: 166.667 mls/hr Lorazepam (Ativan -) 2 mg PO TID PRN PRN Reason: ANXIETY Last Admin: 08/27/19 09:45 Dose: 2 mg Methylprednisolone Sodium Succinate (Solu-Medrol -) 60 mg IVPUSH Q6H-IV CHUCK Last Admin: 08/27/19 08:49 Dose: 60 mg Oseltamivir Phosphate (Tamiflu -) 75 mg PO BID CHUCK Stop: 08/31/19 21:59 Last Admin: 08/27/19 09:27 Dose: 75 mg Sodium Chloride (Normal Saline For Inhalation -) 3 ml IH Q6H PRN PRN Reason: Dyspnea A/P Acute on Chronic Hypoxic Respiratory Failure Pneumonia Acute COPD/Bronchiectasis Exacerbation Atrial Fibrillation HTN BPH h/o TBI Bipolar Disorder - continue antibiotics - f/u cultures - will decrease medrol to 40mg q8h - inhaled bronchodilators standing and PRN - O2 to keep SpO2>90% - rate control - DVT prophylaxis - outpt f/u of chest imaging to ensure resolution of infiltrates
--- NOTE | 2019-08-27 13:03 | PN ---
Progress Note (short form) - Note Progress Note: Patient is feeling better , no fever or chills, shortness of breath on exertion Vital Signs Temperature 98.7 F 08/27/19 06:17 Pulse Rate 94 H 08/27/19 06:17 Respiratory Rate 24 H 08/27/19 06:17 Blood Pressure 126/58 L 08/27/19 06:17 O2 Sat by Pulse Oximetry (%) 93 L 08/26/19 22:00 GENERAL: The patient is awake, alert, oriented, with mild distress on exertion HEAD: Normal with no signs of trauma. EYES: PERRL, extraocular movements intact, sclera anicteric, conjunctiva clear. ENT: Ears normal, oropharynx clear without exudates, moist mucous membranes. NECK: Trachea midline, full range of motion, supple. LUNGS: decreased BS BL, + wheezes/Rhonchi. HEART: Regular rate and rhythm, S1, S2 without murmur, rub or gallop. ABDOMEN: Soft, NT,ND, no guarding, no rebound, no hepatosplenomegaly, no masses. EXTREMITIES: 2+ pulses, warm, well-perfused, no edema. NEUROLOGICAL: Cranial nerves II through XII grossly intact. Normal speech, gait not observed. PSYCH: Normal mood, normal affect. SKIN: Warm, dry, normal turgor, no rashes or lesions noted CBCD WBC 11.3 K/mm3 (4.0-10.0) H 08/27/19 07:10 RBC 4.43 M/mm3 (4.00-5.60) 08/27/19 07:10 Hgb 9.3 GM/dL (11.7-16.9) L 08/27/19 07:10 Hct 31.0 % (35.4-49) L 08/27/19 07:10 MCV 70.0 fl (80-96) L 08/27/19 07:10 MCHC 29.9 g/dl (32.0-35.9) L 08/27/19 07:10 RDW 31.6 % (11.9-15.9) H 08/27/19 07:10 Plt Count 265 K/MM3 (134-434) 08/27/19 07:10 MPV 9.1 fl (7.5-11.1) 08/27/19 07:10 CMP Sodium 135 mmol/L (136-145) L 08/27/19 07:10 Potassium 3.5 mmol/L (3.5-5.1) 08/27/19 07:10 Chloride 101 mmol/L (98-107) 08/27/19 07:10 Carbon Dioxide 25 mmol/L (21-32) 08/27/19 07:10 Anion Gap 9 MMOL/L (8-16) 08/27/19 07:10 BUN 17.4 mg/dL (7-18) 08/27/19 07:10 Creatinine 0.7 mg/dL (0.55-1.3) 08/27/19 07:10 Random Glucose 161 mg/dL (74-106) H 08/27/19 07:10 Calcium 8.1 mg/dL (8.5-10.1) L 08/27/19 07:10 Total Bilirubin 0.4 mg/dL (0.2-1) 08/26/19 06:45 AST 71 U/L (15-37) H 08/26/19 06:45 ALT 122 U/L (13-61) H 08/26/19 06:45 Alkaline Phosphatase 81 U/L (45-117) 08/26/19 06:45 Total Protein 6.3 g/dl (6.4-8.2) L 08/26/19 06:45 Albumin 2.6 g/dl (3.4-5.0) L 08/26/19 06:45 CARDIAC ENZYMES Troponin I < 0.02 ng/ml (0.00-0.05) 08/26/19 14:00 Current Medications Generic Name Dose Route Start Last Admin Trade Name Freq PRN Reason Stop Dose Admin Acetaminophen 650 mg 08/26/19 16:40 08/27/19 02:20 Tylenol - PO 650 mg Q6H PRN Administration Fever Or Pain Albuterol Sulfate 1 amp 08/26/19 17:20 08/27/19 06:35 Ventolin 0.083% Nebulizer Soln - NEB 1 amp Q4H PRN Administration SHORT OF BREATH/WHEEZING Albuterol/Ipratropium 1 amp 08/26/19 20:00 08/27/19 09:10 Duoneb - NEB 1 amp RQID CHUCK Administration Budesonide/Formoterol Fumarate 2 puff 08/26/19 00:15 08/27/19 09:28 Symbicort 80/4.5mcg - IH 2 puff BID CHUCK Administration Enoxaparin Sodium 40 mg 08/26/19 12:00 08/27/19 09:29 Lovenox - SQ 40 mg DAILY CHUCK Administration Guaifenesin 10 ml 08/26/19 17:20 08/27/19 11:56 Diabetic Tussin Dm - PO 10 ml Q4H PRN Administration COUGH Piperacillin Sod/Tazobactam 50 mls @ 100 mls/hr 08/26/19 18:00 08/27/19 09:27 Sod 3.375 gm/ Dextrose IVPB 100 mls/hr Q8H-IV CHUCK Administration Protocol Vancomycin HCl 1,000 mg in 250 mls @ 166.667 mls/hr 08/26/19 22:00 08/27/19 10:07 Vancomycin (Pre-Docked) IVPB 166.667 mls/hr BID CHUCK Administration Protocol Lorazepam 2 mg 08/27/19 00:41 08/27/19 09:45 Ativan - PO 2 mg TID PRN Administration ANXIETY Methylprednisolone Sodium Succinate 40 mg 08/27/19 18:00 Solu-Medrol - IVPUSH Q8H-IV CHUCK Oseltamivir Phosphate 75 mg 08/26/19 22:00 08/27/19 09:27 Tamiflu - PO 08/31/19 21:59 75 mg BID CHUCK Administration Sodium Chloride 3 ml 08/26/19 12:03 Normal Saline For Inhalation - IH Q6H PRN Dyspnea Home Medications Medication Instructions Recorded Amlodipine Besylate [Norvasc -] 10 mg PO DAILY 12/24/11 Budesonide/Formeterol Fumarate 1 inh PO BID 01/21/19 [SYMBICORT 80/4.5mcg -] Sennosides [Senna -] 2 tab PO HS PRN tablet 04/27/19 Tamsulosin HCl [Flomax -] 0.4 mg PO HS cap.er.24h 04/27/19 Simvastatin 40 mg PO DAILY 08/13/19 Aspirin [Aspirin EC] 81 mg PO DAILY 08/14/19 Dextroamphetamine/Amphetamine 20 mg PO DAILY 08/14/19 [Adderall Xr 20 mg Capsule] Doxepin HCl [Sinequan -] 150 mg PO HS 01/19/20 LORazepam [Lorazepam] 2 mg PO TID 08/14/19 cloNIDine HCL [Catapres -] 0.3 mg PO BID 08/14/19 Amoxicillin/Potassium Clav 1 each PO BID #10 tablet 08/18/19 [Augmentin 875-125 Tablet] Doxepin HCl [Sinequan -] 175 mg PO HS capsule 08/18/19 predniSONE [Deltasone -] 10 mg PO ASDIR #42 tablet 08/18/19 Microbiology 08/27/19 11:11 Urine For Antigen Detection Legionella Antigen - Final 08/27/19 11:11 Urine For Antigen Detection Streptococcus pneumoniae Antigen (M - Final 08/26/19 06:45 Urine - Urine Clean Catch Urine Culture - Final Yeast Like Organism 08/26/19 06:45 Blood - Peripheral Venous Blood Culture - Preliminary NO GROWTH OBTAINED AFTER 24 HOURS, INCUBATION TO CONTINUE FOR 4 DAYS. 08/26/19 06:45 Blood - Peripheral Venous Blood Culture - Preliminary NO GROWTH OBTAINED AFTER 24 HOURS, INCUBATION TO CONTINUE FOR [address] of the chest: chronic interstitial lung disease with honey combing ,worsened since the prior examination. increased consolidation/atelectasis with multiple tiny calcification in the right lobe 5mm pulmonary nodule in the right middle lobe , 6mm interval consolidation in the right upper lobe post.suggestive of pneumonia. close follow up needed. ASSESSMENT AND PLAN: Patient is a 68yom with PMhx of HTN, HLD, COPD, CAD, atrial fibrillation, BPH, anxiety, h/o TBI, and recent hospitalization at [place] for PNA. is admitted for having acute shortness of breath and subjective fever of 103 at home. # Acute on Chronic Hypoxic Respiratory Failure: due to ILD chronic with consolidation with diagnosis of influ A, Pna on last admission .continue IV ZOSYN/ VANCOMYCIN as per ID , conitnue solumedrol IV , nebs, O2 to keep SpO2> 90%, legionella and Pneumonia antigen are negative # s/p Influenza A continue Tamiflu #Acute Copd exacerbation , continue steroid on po taper dose , NEbs , BIPAP if needed # HTN: cont clonidine and norvasc # H/o bipolar, TBI, possible ADHD : has to bring Adderall from home . cont ativan # H/o A fib: per records, he had refused to be on AC outpt f/u of chest imaging to ensure resolution of infiltrates, 5mm pulmonary nodule in the right middle lobe , 6mm interval consolidation in the right upper lobe post.suggestive of pneumonia DVT Px: Lovenox Visit type - Emergency Visit Emergency Visit: Yes ED Registration Date: 08/26/19 Care time: The patient presented to the Emergency Department on the above date and was hospitalized for further evaluation of their emergent condition. - New Patient This patient is new to me today: No - Critical Care Critical Care patient: No - Discharge Referral Referred to [facility] Med P.C.: No
[2019-08-27] MEDS: cloNIDine HCL 0.1 MG TABLET PO SCH ×2 (13:10→21:24)
[2019-08-27] MEDS ORDERED: BUDESONIDE/FORMETEROL FUMARATE 80/4.5 mcg INHALER IH SCH (13:15)
[2019-08-27] MEDS ORDERED: ALBUTEROL SO4 HFA INHALER IH PRN (19:19)
[2019-08-27] MEDS: TAMSULOSIN HCL 0.4 MG CAP PO SCH (21:24)
[2019-08-27] MEDS: DOXEPIN HCL 25 MG CAPSULE PO SCH (21:24)
[2019-08-28] MEDS ORDERED: DEXTROSE 5%-WATER - 50 ML IVPB ONE ×3 (00:57→17:09)
[2019-08-28] MEDS ORDERED: PIPERACILLIN/TAZOBACTAM 3.375 GM VIAL IVPB ONE ×3 (00:57→17:09)
[2019-08-28] MEDS: PIPERACILLIN/TAZOB 3.375 GM 3.375 GM in DEXTROSE 5%-WATER - 50 ML IVPB SCH ×3 (01:00→17:13)
[2019-08-28] MEDS: methylPREDNISolone NA SUCC 40 MG/1 ML VIAL IVPUSH SCH ×3 (01:01→17:13)
[2019-08-28] MEDS: ACETAMINOPHEN 325 MG TABLET (FP) PO PRN ×2 (01:01→07:33)
[2019-08-28] MEDS: ALBUTEROL SO4 2.5/IPRATROPIUM 0.5 INH SOL 3 ML VIAL.NEB. NEB SCH ×4 (08:25→20:15)
[2019-08-28] MEDS ORDERED: PATIENT'S OWN MEDICATION (NON-FORMULARY) (Dextroamphetamine/Amphetamine [Adderall Xr 20 Mg PO SCH (10:00)
[2019-08-28] MEDS ORDERED: PT OWN MED DRAWER 7, Y5N ONE ×3 (10:07→21:22)
[2019-08-28] MEDS: cloNIDine HCL 0.1 MG TABLET PO SCH ×2 (10:10→22:17)
[2019-08-28] MEDS: OSELTAMIVIR PHOSPHATE 75 MG CAPSULE PO SCH ×2 (10:11→22:17)
[2019-08-28] MEDS: amLODIPine BESYLATE 10 MG TABLET (FP) PO SCH (10:11)
[2019-08-28] MEDS: ENOXAPARIN NA (PORCINE) 40 MG/0.4 ML DISP.SYRIN SQ SCH (10:15)
[2019-08-28] MEDS: LORazepam 1 MG TABLET PO PRN ×3 (10:32→22:17)
[2019-08-28] MEDS: VANCOMYCIN 1 GRAM (PRE-DOCKED) 1,000 MG/250 ML BAG IVPB SCH ×2 (10:50→22:17)
--- NOTE | 2019-08-28 12:29 | PN ---
Physical Exam: SUBJECTIVE: Patient seen and examined at bedside. Endorses improvement in his breathing. Denies acute complaints. OBJECTIVE: Vital Signs Period Temp Pulse Resp BP Sys/Walter Pulse Ox Last 24 Hr 97.8 F-98.5 F 69-100 20-24 103-141/55-78 89-89 GENERAL: The patient is awake, alert, and fully oriented, in no acute distress. HEAD: Normal with no signs of trauma. EYES: PERRL, extraocular movements intact, sclera anicteric, conjunctiva clear. ENT: Oropharynx clear without exudates, moist mucous membranes. NECK: Trachea midline, supple without lymphadnopathy LUNGS: Poor air entry bilaterally. Expiratory wheezing, auscultated bilaterally. No accessory muscle use. HEART: Regular rate and rhythm, S1, S2 without murmur, rub or gallop. ABDOMEN: Soft, nontender, nondistended, normoactive bowel sounds. No hepatosplenomegaly, no masses. EXTREMITIES: 2+ radial, dorsalis pedis pulses bilaterally, warm, well-perfused. No edema. NEUROLOGICAL: Cranial nerves II through XII grossly intact. No gross focal deficits. PSYCH: Normal mood, normal affect upon my encounter. SKIN: Warm, dry. Active Medications Generic Name Dose Route Start Last Admin Trade Name Freq PRN Reason Stop Dose Admin Acetaminophen 650 mg 08/26/19 16:40 08/28/19 07:33 Tylenol - PO 650 mg Q6H PRN Administration Fever Or Pain Albuterol Sulfate 1 amp 08/26/19 17:20 08/27/19 06:35 Ventolin 0.083% Nebulizer Soln - NEB 1 amp Q4H PRN Administration SHORT OF BREATH/WHEEZING Albuterol Sulfate 2 puff 08/27/19 19:19 Ventolin Hfa Inhaler - IH Q6H PRN SHORT OF BREATH/WHEEZING Albuterol/Ipratropium 1 amp 08/26/19 20:00 08/28/19 08:25 Duoneb - NEB 1 amp RQID CHUCK Administration Amlodipine Besylate 10 mg 08/28/19 10:00 08/28/19 10:11 Norvasc - PO 10 mg DAILY CHUCK Administration Budesonide/Formoterol Fumarate 2 puff 08/26/19 00:15 08/27/19 21:24 Symbicort 80/4.5mcg - IH 2 puff BID CHUCK Administration Clonidine 0.3 mg 08/27/19 13:03 08/28/19 10:10 Catapres - PO 0.3 mg BID CHUCK Administration Doxepin HCl 150 mg 08/27/19 22:00 08/27/19 21:24 Sinequan - PO 150 mg HS CHUCK Administration Enoxaparin Sodium 40 mg 08/26/19 12:00 08/28/19 10:15 Lovenox - SQ 40 mg DAILY CHUCK Administration Guaifenesin 10 ml 08/26/19 17:20 08/27/19 21:41 Diabetic Tussin Dm - PO 10 ml Q4H PRN Administration COUGH Piperacillin Sod/Tazobactam 50 mls @ 100 mls/hr 08/26/19 18:00 08/28/19 10:12 Sod 3.375 gm/ Dextrose IVPB 100 mls/hr Q8H-IV CHUCK Administration Protocol Vancomycin HCl 1,000 mg in 250 mls @ 166.667 mls/hr 08/26/19 22:00 08/28/19 10:50 Vancomycin (Pre-Docked) IVPB 166.667 mls/hr BID CHUCK Administration Protocol Lorazepam 2 mg 08/27/19 00:41 08/28/19 10:32 Ativan - PO 2 mg TID PRN Administration ANXIETY Methylprednisolone Sodium Succinate 40 mg 08/27/19 18:00 08/28/19 10:13 Solu-Medrol - IVPUSH 40 mg Q8H-IV CHUKC Administration Non-Formulary Medication 20 mg 08/28/19 10:00 Dextroamphetamine/Amphetamine [Adderall Xr 20 Mg Capsule] PO DAILY CHUCK Oseltamivir Phosphate 75 mg 08/26/19 22:00 08/28/19 10:11 Tamiflu - PO 08/31/19 21:59 75 mg BID CHUCK Administration Sodium Chloride 3 ml 08/26/19 12:03 08/28/19 02:55 Normal Saline For Inhalation - IH 3 ml Q6H PRN Administration Dyspnea Tamsulosin HCl 0.4 mg 08/27/19 22:00 08/27/19 21:24 Flomax - PO 0.4 mg HS CHUCK Administration ASSESSMENT/PLAN: Patient is a 68 year old male with history of COPD (on home oxygen), Afib (not on AC), hypertension, traumatic brain injury, benign prostatic hyperplasia presents to hospital with complaint of shortness of breath. Hospital acquired pneumonia, COPD excerbation -CT chest reveals worsening chronic interstitial lung disease. Right upper and lower lobe consolidation vs infiltrate. 5mm pulmonary nodule noted. -Medrol 40mg IV Q8 hours -Tamiflu 75mg PO BID -Duonebs standing, Albuterol nebulizer PRN -Symbicort 80/4.5 2 puff IH BID -Urine for legionella, pneumonia -Vancomycin, Zosyn -ID consult appreciated. AFib -Patient refuses anticoagulation in past. -Currently rate controlled. Continue Cardizem 300mg PO daily Hypertension -Norvasc 10mg -Clonidine 0.3 BID Hyperlipidemia -Atorvastatin 10mg Benign prostatic hyperplasia -Tamsulosin 0.4mg PO daily Bipolar disorder -Doxepin and Lorazepam; Adderall FEN -No IV fluids indicated -Follow BMP -Sodium-controlled diet Prophylaxis -Lovenox 40mg subq daily Disposition -Continue care in medical surgical floor Visit type - Emergency Visit Emergency Visit: Yes ED Registration Date: 08/26/19 Care time: The patient presented to the Emergency Department on the above date and was hospitalized for further evaluation of their emergent condition. - New Patient This patient is new to me today: No - Critical Care Critical Care patient: No - Discharge Referral Referred to [facility] Med P.C.: No ATTENDING PHYSICIAN STATEMENT I saw and evaluated the patient. I reviewed the resident's note and discussed the case with the resident. I agree with the resident's findings and plan as documented. SUBJECTIVE: OBJECTIVE: ASSESSMENT AND PLAN:
--- NOTE | 2019-08-28 13:07 | PN ---
Progress Note (short form) - Note Progress Note: PULMONARY Breathing better today. Less congestion. No fevers. Vital Signs Period Temp Pulse Resp BP Sys/Walter Pulse Ox Last 24 Hr 97.8 F-98.5 F 69-100 20-24 103-141/55-78 86-89 Gen: NAD at rest Heart: RRR Lung: distant breath sounds Abd: soft, nontender Ext: no edema CBC, BMP 08/27/19 07:10 08/27/19 07:10 Active Medications Acetaminophen (Tylenol -) 650 mg PO Q6H PRN PRN Reason: Fever Or Pain Last Admin: 08/28/19 07:33 Dose: 650 mg Albuterol Sulfate (Ventolin 0.083% Nebulizer Soln -) 1 amp NEB Q4H PRN PRN Reason: SHORT OF BREATH/WHEEZING Last Admin: 08/27/19 06:35 Dose: 1 amp Albuterol Sulfate (Ventolin Hfa Inhaler -) 2 puff IH Q6H PRN PRN Reason: SHORT OF BREATH/WHEEZING Albuterol/Ipratropium (Duoneb -) 1 amp NEB RQID [facility] Last Admin: 08/28/19 13:01 Dose: 1 amp Amlodipine Besylate (Norvasc -) 10 mg PO DAILY [facility] Last Admin: 08/28/19 10:11 Dose: 10 mg Budesonide/Formoterol Fumarate (Symbicort 80/4.5mcg -) 2 puff IH BID [facility] Last Admin: 08/27/19 21:24 Dose: 2 puff Clonidine (Catapres -) 0.3 mg PO BID [facility] Last Admin: 08/28/19 10:10 Dose: 0.3 mg Doxepin HCl (Sinequan -) 150 mg PO HS [facility] Last Admin: 08/27/19 21:24 Dose: 150 mg Enoxaparin Sodium (Lovenox -) 40 mg SQ DAILY [facility] Last Admin: 08/28/19 10:15 Dose: 40 mg Guaifenesin (Diabetic Tussin Dm -) 10 ml PO Q4H PRN PRN Reason: COUGH Last Admin: 08/27/19 21:41 Dose: 10 ml Piperacillin Sod/Tazobactam (Sod 3.375 gm/ Dextrose) 50 mls @ 100 mls/hr IVPB Q8H-IV CHUCK; Protocol Last Admin: 08/28/19 10:12 Dose: 100 mls/hr Vancomycin HCl (Vancomycin (Pre-Docked)) 1,000 mg in 250 mls @ 166.667 mls/hr IVPB BID CHUCK; Protocol Last Admin: 08/28/19 10:50 Dose: 166.667 mls/hr Lorazepam (Ativan -) 2 mg PO TID PRN PRN Reason: ANXIETY Last Admin: 08/28/19 10:32 Dose: 2 mg Methylprednisolone Sodium Succinate (Solu-Medrol -) 40 mg IVPUSH Q8H-IV CHUCK Last Admin: 08/28/19 10:13 Dose: 40 mg Non-Formulary Medication (Dextroamphetamine/Amphetamine [Adderall Xr 20 Mg Capsule]) 20 mg PO DAILY CHUCK Oseltamivir Phosphate (Tamiflu -) 75 mg PO BID CHUCK Stop: 08/31/19 21:59 Last Admin: 08/28/19 10:11 Dose: 75 mg Sodium Chloride (Normal Saline For Inhalation -) 3 ml IH Q6H PRN PRN Reason: Dyspnea Last Admin: 08/28/19 02:55 Dose: 3 ml Tamsulosin HCl (Flomax -) 0.4 mg PO HS CHUCK Last Admin: 08/27/19 21:24 Dose: 0.4 mg A/P Acute on Chronic Hypoxic Respiratory Failure Pneumonia Acute COPD/Bronchiectasis Exacerbation Atrial Fibrillation HTN BPH h/o TBI Bipolar Disorder Anemia - continue antibiotics - f/u cultures - continue medrol 40mg q8h - inhaled bronchodilators standing and PRN - O2 to keep SpO2>90% - rate control - DVT prophylaxis - outpt f/u of chest imaging to ensure resolution of infiltrates
[2019-08-28] MEDS: BUDESONIDE/FORMETEROL FUMARATE 80/4.5 mcg INHALER IH SCH ×2 (13:41→22:18)
--- NOTE | 2019-08-28 19:29 | PN ---
Teaching Attending Note Name of Resident: Castillo Morrow ATTENDING PHYSICIAN STATEMENT I saw and evaluated the patient. I reviewed the resident's note and discussed the case with the resident. I agree with the resident's findings and plan as documented. SUBJECTIVE: Patient is feeling better. Vital Signs Temperature 98.6 F 08/28/19 17:16 Pulse Rate 78 08/28/19 17:16 Respiratory Rate 20 08/28/19 17:16 Blood Pressure 114/64 08/28/19 17:16 O2 Sat by Pulse Oximetry (%) 86 L 08/28/19 09:00 GENERAL: The patient is awake, alert, oriented, with mild distress on exertion HEAD: Normal with no signs of trauma. EYES: PERRL, extraocular movements intact, sclera anicteric, conjunctiva clear. ENT: Ears normal, oropharynx clear without exudates, moist mucous membranes. NECK: Trachea midline, full range of motion, supple. LUNGS: decreased BS BL, + wheezes/Rhonchi. HEART: Regular rate and rhythm, S1, S2 without murmur, rub or gallop. ABDOMEN: Soft, NT,ND, no guarding, no rebound, no hepatosplenomegaly, no masses. EXTREMITIES: 2+ pulses, warm, well-perfused, no edema. NEUROLOGICAL: Cranial nerves II through XII grossly intact. Normal speech, gait not observed. PSYCH: Normal mood, normal affect. SKIN: Warm, dry, normal turgor, no rashes or lesions noted CBCD WBC 11.3 K/mm3 (4.0-10.0) H 08/27/19 07:10 RBC 4.43 M/mm3 (4.00-5.60) 08/27/19 07:10 Hgb 9.3 GM/dL (11.7-16.9) L 08/27/19 07:10 Hct 31.0 % (35.4-49) L 08/27/19 07:10 MCV 70.0 fl (80-96) L 08/27/19 07:10 MCHC 29.9 g/dl (32.0-35.9) L 08/27/19 07:10 RDW 31.6 % (11.9-15.9) H 08/27/19 07:10 Plt Count 265 K/MM3 (134-434) 08/27/19 07:10 MPV 9.1 fl (7.5-11.1) 08/27/19 07:10 CMP Sodium 135 mmol/L (136-145) L 08/27/19 07:10 Potassium 3.5 mmol/L (3.5-5.1) 08/27/19 07:10 Chloride 101 mmol/L (98-107) 08/27/19 07:10 Carbon Dioxide 25 mmol/L (21-32) 08/27/19 07:10 Anion Gap 9 MMOL/L (8-16) 08/27/19 07:10 BUN 17.4 mg/dL (7-18) 08/27/19 07:10 Creatinine 0.7 mg/dL (0.55-1.3) 08/27/19 07:10 Random Glucose 161 mg/dL (74-106) H 08/27/19 07:10 Calcium 8.1 mg/dL (8.5-10.1) L 08/27/19 07:10 Total Bilirubin 0.4 mg/dL (0.2-1) 08/26/19 06:45 AST 71 U/L (15-37) H 08/26/19 06:45 ALT 122 U/L (13-61) H 08/26/19 06:45 Alkaline Phosphatase 81 U/L (45-117) 08/26/19 06:45 Total Protein 6.3 g/dl (6.4-8.2) L 08/26/19 06:45 Albumin 2.6 g/dl (3.4-5.0) L 08/26/19 06:45 CARDIAC ENZYMES Troponin I < 0.02 ng/ml (0.00-0.05) 08/26/19 14:00 Current Medications Generic Name Dose Route Start Last Admin Trade Name Freq PRN Reason Stop Dose Admin Acetaminophen 650 mg 08/26/19 16:40 08/28/19 07:33 Tylenol - PO 650 mg Q6H PRN Administration Fever Or Pain Albuterol Sulfate 1 amp 08/26/19 17:20 08/27/19 06:35 Ventolin 0.083% Nebulizer Soln - NEB 1 amp Q4H PRN Administration SHORT OF BREATH/WHEEZING Albuterol Sulfate 2 puff 08/27/19 19:19 Ventolin Hfa Inhaler - IH Q6H PRN SHORT OF BREATH/WHEEZING Albuterol/Ipratropium 1 amp 08/26/19 20:00 08/28/19 13:01 Duoneb - NEB 1 amp RQID CHUCK Administration Amlodipine Besylate 10 mg 08/28/19 10:00 08/28/19 10:11 Norvasc - PO 10 mg DAILY CHUCK Administration Budesonide/Formoterol Fumarate 2 puff 08/26/19 00:15 08/28/19 13:41 Symbicort 80/4.5mcg - IH 2 puff BID CHUCK Administration Clonidine 0.3 mg 08/27/19 13:03 08/28/19 10:10 Catapres - PO 0.3 mg BID CHUCK Administration Doxepin HCl 150 mg 08/27/19 22:00 08/27/19 21:24 Sinequan - PO 150 mg HS CHUCK Administration Enoxaparin Sodium 40 mg 08/26/19 12:00 08/28/19 10:15 Lovenox - SQ 40 mg DAILY CHUCK Administration Guaifenesin 10 ml 08/26/19 17:20 08/27/19 21:41 Diabetic Tussin Dm - PO 10 ml Q4H PRN Administration COUGH Piperacillin Sod/Tazobactam 50 mls @ 100 mls/hr 08/26/19 18:00 08/28/19 17:13 Sod 3.375 gm/ Dextrose IVPB 100 mls/hr Q8H-IV CHUCK Administration Protocol Vancomycin HCl 1,000 mg in 250 mls @ 166.667 mls/hr 08/26/19 22:00 08/28/19 10:50 Vancomycin (Pre-Docked) IVPB 166.667 mls/hr BID CHUCK Administration Protocol Lorazepam 2 mg 08/27/19 00:41 08/28/19 17:24 Ativan - PO 2 mg TID PRN Administration ANXIETY Methylprednisolone Sodium Succinate 40 mg 08/27/19 18:00 08/28/19 17:13 Solu-Medrol - IVPUSH 40 mg Q8H-IV CHUCK Administration Non-Formulary Medication 20 mg 08/28/19 10:00 Dextroamphetamine/Amphetamine [Adderall Xr 20 Mg Capsule] PO DAILY CHUCK Oseltamivir Phosphate 75 mg 08/26/19 22:00 08/28/19 10:11 Tamiflu - PO 08/31/19 21:59 75 mg BID CHUCK Administration Sodium Chloride 3 ml 08/26/19 12:03 08/28/19 02:55 Normal Saline For Inhalation - IH 3 ml Q6H PRN Administration Dyspnea Tamsulosin HCl 0.4 mg 08/27/19 22:00 08/27/19 21:24 Flomax - PO 0.4 mg HS CHUCK Administration Home Medications Medication Instructions Recorded Amlodipine Besylate [Norvasc -] 10 mg PO DAILY 12/24/11 Budesonide/Formeterol Fumarate 1 inh PO BID 01/21/19 [SYMBICORT 80/4.5mcg -] Sennosides [Senna -] 2 tab PO HS PRN tablet 04/27/19 Tamsulosin HCl [Flomax -] 0.4 mg PO HS cap.er.24h 04/27/19 Simvastatin 40 mg PO DAILY 08/13/19 Aspirin [Aspirin EC] 81 mg PO DAILY 08/14/19 Dextroamphetamine/Amphetamine 20 mg PO DAILY 08/14/19 [Adderall Xr 20 mg Capsule] Doxepin HCl [Sinequan -] 150 mg PO HS 08/14/19 LORazepam [Lorazepam] 2 mg PO TID 08/14/19 cloNIDine HCL [Catapres -] 0.3 mg PO BID 08/14/19 Amoxicillin/Potassium Clav 1 each PO BID #10 tablet 08/18/19 [Augmentin 875-125 Tablet] Doxepin HCl [Sinequan -] 175 mg PO HS capsule 08/18/19 predniSONE [Deltasone -] 10 mg PO ASDIR #42 tablet 08/18/19 Microbiology 08/27/19 11:11 Urine For Antigen Detection Legionella Antigen - Final 08/27/19 11:11 Urine For Antigen Detection Streptococcus pneumoniae Antigen (M - Final 08/26/19 06:45 Urine - Urine Clean Catch Urine Culture - Final Yeast Like Organism 08/26/19 06:45 Blood - Peripheral Venous Blood Culture - Preliminary NO GROWTH OBTAINED AFTER 24 HOURS, INCUBATION TO CONTINUE FOR 4 DAYS. 08/26/19 06:45 Blood - Peripheral Venous Blood Culture - Preliminary NO GROWTH OBTAINED AFTER 24 HOURS, INCUBATION TO CONTINUE FOR [address] of the chest: chronic interstitial lung disease with honey combing ,worsened since the prior examination. increased consolidation/atelectasis with multiple tiny calcification in the right lobe 5mm pulmonary nodule in the right middle lobe , 6mm interval consolidation in the right upper lobe post.suggestive of pneumonia. close follow up needed. ASSESSMENT AND PLAN: Patient is a 68yom with PMhx of HTN, HLD, COPD, CAD, atrial fibrillation, BPH, anxiety, h/o TBI, and recent hospitalization at [place] for PNA. is admitted for having acute shortness of breath and subjective fever of 103 at home. # Acute on Chronic Hypoxic Respiratory Failure: due to ILD chronic with consolidation with diagnosis of influ A, Pna on last admission improving, continue IV ZOSYN/ VANCOMYCIN as per ID , conitnue solumedrol IV , nebs, O2 to keep SpO2>90%, legionella and Pneumonia antigen are negative # s/p Influenza A continue Tamiflu the last day in am #Acute Copd exacerbation , continue steroid on po taper dose , NEbs , BIPAP if needed # HTN: cont clonidine and norvasc # H/o bipolar, TBI, possible ADHD : has to bring Adderall from home . cont ativan # H/o A fib: per records, he had refused to be on AC outpt f/u of chest imaging to ensure resolution of infiltrates, 5mm pulmonary nodule in the right middle lobe , 6mm interval consolidation in the right upper lobe post.suggestive of pneumonia DVT Px: Lovenox
[2019-08-28] MEDS: TAMSULOSIN HCL 0.4 MG CAP PO SCH (22:17)
[2019-08-28] MEDS: guaiFENesin/D-M SUGAR-FREE/ACLHOL-FREE 118 ML BOTTLE PO PRN (22:17)
[2019-08-28] MEDS: DOXEPIN HCL 25 MG CAPSULE PO SCH (22:17)
[2019-08-28] MEDS ORDERED: MAG HYDROX/AL HYDROX/SIMETH 30 ML UNIT-DOSE CUP PO ONE (23:32)
[2019-08-28] MEDS: ALBUTEROL SO4 0.083% IH SOL 2.5 MG/3 ML VIAL.NEB. NEB PRN (23:50)
[2019-08-29] MEDS ORDERED: DEXTROSE 5%-WATER - 50 ML IVPB ONE ×3 (01:05→17:14)
[2019-08-29] MEDS ORDERED: PIPERACILLIN/TAZOBACTAM 3.375 GM VIAL IVPB ONE ×3 (01:05→17:14)
[2019-08-29] MEDS: methylPREDNISolone NA SUCC 40 MG/1 ML VIAL IVPUSH SCH ×3 (01:20→17:22)
[2019-08-29] MEDS: PIPERACILLIN/TAZOB 3.375 GM 3.375 GM in DEXTROSE 5%-WATER - 50 ML IVPB SCH ×3 (01:20→17:21)
[2019-08-29] MEDS: ALBUTEROL SO4 2.5/IPRATROPIUM 0.5 INH SOL 3 ML VIAL.NEB. NEB SCH ×4 (07:05→20:45)
[2019-08-29 08:48] LABS: HEMATOCRIT 28.5 % (35.4-49); HEMOGLOBIN 8.6 GM/dL (11.7-16.9); MCH 21.4 pg (25.7-33.7); MCHC 30.1 g/dl (32.0-35.9); MEAN CELL VOLUME 71.1 fl (80-96); MEAN PLT VOLUME 9.4 fl (7.5-11.1); PLATELET COUNT 227 K/MM3 (134-434); RBC 4.01 M/mm3 (4.00-5.60); RDW 31.8 % (11.9-15.9); WHITE BLOOD COUNT 8.5 K/mm3 (4.0-10.0)
[2019-08-29 09:13] LABS: ALBUMIN 1.9 g/dl (3.4-5.0); BILIRUBIN,TOTAL 0.3 mg/dL (0.2-1); BLOOD UREA NITROGEN 17.6 mg/dL (7-18); CALCIUM 7.9 mg/dL (8.5-10.1); CREATININE 0.8 mg/dL (0.55-1.3); MAGNESIUM 2.5 mg/dL (1.8-2.4); PHOSPHOROUS 3.3 mg/dL (2.5-4.9); POTASSIUM 3.5 mmol/L (3.5-5.1); TOT PROT 5.5 g/dl (6.4-8.2)
--- NOTE | 2019-08-29 09:52 | PN ---
Progress Note (short form) - Note Progress Note: Reports feeling much better today. Some dry cough. No hemoptysis. No fever. Intake & Output 08/26/19 08/27/19 08/28/19 08/29/19 23:59 23:59 23:59 23:59 Intake Total 2950 1100 1550 250 Output Total 1400 Balance 1550 1100 1550 250 Weight 187 lb 183 lb 6.4 oz 183 lb Last Vital Signs Temp Pulse Resp BP Pulse Ox 97.8 F 88 20 134/75 97 08/29/19 06:00 08/29/19 06:00 08/29/19 06:00 08/29/19 06:00 08/28/19 22:00 Active Medications Acetaminophen (Tylenol -) 650 mg PO Q6H PRN PRN Reason: Fever Or Pain Last Admin: 08/28/19 07:33 Dose: 650 mg Albuterol Sulfate (Ventolin 0.083% Nebulizer Soln -) 1 amp NEB Q4H PRN PRN Reason: SHORT OF BREATH/WHEEZING Last Admin: 08/28/19 23:50 Dose: 1 amp Albuterol Sulfate (Ventolin Hfa Inhaler -) 2 puff IH Q6H PRN PRN Reason: SHORT OF BREATH/WHEEZING Albuterol/Ipratropium (Duoneb -) 1 amp NEB RQID [facility] Last Admin: 08/29/19 07:05 Dose: 1 amp Amlodipine Besylate (Norvasc -) 10 mg PO DAILY [facility] Last Admin: 08/28/19 10:11 Dose: 10 mg Budesonide/Formoterol Fumarate (Symbicort 80/4.5mcg -) 2 puff IH BID [facility] Last Admin: 08/28/19 22:18 Dose: 2 puff Clonidine (Catapres -) 0.3 mg PO BID [facility] Last Admin: 08/28/19 22:17 Dose: 0.3 mg Doxepin HCl (Sinequan -) 150 mg PO HS [facility] Last Admin: 08/28/19 22:17 Dose: 150 mg Enoxaparin Sodium (Lovenox -) 40 mg SQ DAILY [facility] Last Admin: 08/28/19 10:15 Dose: 40 mg Guaifenesin (Diabetic Tussin Dm -) 10 ml PO Q4H PRN PRN Reason: COUGH Last Admin: 08/28/19 22:17 Dose: 10 ml Piperacillin Sod/Tazobactam (Sod 3.375 gm/ Dextrose) 50 mls @ 100 mls/hr IVPB Q8H-IV CHUCK; Protocol Last Admin: 08/29/19 01:20 Dose: 100 mls/hr Vancomycin HCl (Vancomycin (Pre-Docked)) 1,000 mg in 250 mls @ 166.667 mls/hr IVPB BID CHUCK; Protocol Last Admin: 08/28/19 22:17 Dose: 166.667 mls/hr Lorazepam (Ativan -) 2 mg PO TID PRN PRN Reason: ANXIETY Last Admin: 08/28/19 22:17 Dose: 2 mg Methylprednisolone Sodium Succinate (Solu-Medrol -) 40 mg IVPUSH Q8H-IV CHUCK Last Admin: 08/29/19 01:20 Dose: 40 mg Non-Formulary Medication (Dextroamphetamine/Amphetamine [Adderall Xr 20 Mg Capsule]) 20 mg PO DAILY [facility]UCK Oseltamivir Phosphate (Tamiflu -) 75 mg PO BID CHUCK Stop: 08/31/19 21:59 Last Admin: 08/28/19 22:17 Dose: 75 mg Sodium Chloride (Normal Saline For Inhalation -) 3 ml IH Q6H PRN PRN Reason: Dyspnea Last Admin: 08/28/19 02:55 Dose: 3 ml Tamsulosin HCl (Flomax -) 0.4 mg PO HS [facility]UCK Last Admin: 08/28/19 22:17 Dose: 0.4 mg Gen: NAD at rest Heart: RRR Lung: few rhonchi, diminished throughout, no wheeze Abd: soft, nontender Ext: no edema Laboratory Results - last 24 hr 08/29/19 08/29/19 07:25 07:25 WBC 8.5 RBC 4.01 Hgb 8.6 L Hct 28.5 L MCV 71.1 L MCH 21.4 L MCHC 30.1 L RDW 31.8 H Plt Count 227 MPV 9.4 Sodium 137 Potassium 3.5 Chloride 104 Carbon Dioxide 25 Anion Gap 9 BUN 17.6 Creatinine 0.8 Est GFR (CKD-EPI)AfAm 105.64 Est GFR (CKD-EPI)NonAf 91.15 Random Glucose 167 H Calcium 7.9 L Phosphorus 3.3 Magnesium 2.5 H Total Bilirubin 0.3 AST 56 H ALT 112 H Alkaline Phosphatase 70 Total Protein 5.5 L Albumin 1.9 L A/P Acute on Chronic Hypoxic Respiratory Failure Pneumonia Acute COPD/Bronchiectasis Exacerbation Atrial Fibrillation HTN BPH h/o TBI Bipolar Disorder Anemia - ABX Per ID - CAn likely change to Prednisone in AM - inhaled bronchodilators standing and PRN - O2 to keep SpO2>90% - rate control - DVT prophylaxis - outpt f/u of chest imaging to ensure resolution of infiltrates Dr Brown
[2019-08-29] MEDS: amLODIPine BESYLATE 10 MG TABLET (FP) PO SCH (10:47)
[2019-08-29] MEDS: BUDESONIDE/FORMETEROL FUMARATE 80/4.5 mcg INHALER IH SCH ×2 (10:53→22:34)
[2019-08-29] MEDS: ENOXAPARIN NA (PORCINE) 40 MG/0.4 ML DISP.SYRIN SQ SCH ×2 (10:54→10:57)
[2019-08-29] MEDS: LORazepam 1 MG TABLET PO PRN ×2 (11:01→21:56)
[2019-08-29] MEDS: cloNIDine HCL 0.1 MG TABLET PO SCH ×2 (11:01→21:48)
[2019-08-29] MEDS: OSELTAMIVIR PHOSPHATE 75 MG CAPSULE PO SCH (11:03)
[2019-08-29] MEDS: VANCOMYCIN 1 GRAM (PRE-DOCKED) 1,000 MG/250 ML BAG IVPB SCH ×2 (11:33→21:49)
[2019-08-29] MEDS: ACETAMINOPHEN 325 MG TABLET (FP) PO PRN ×2 (16:47→21:57)
--- NOTE | 2019-08-29 17:10 | PN ---
Teaching Attending Note Name of Resident: Delfino Watters ATTENDING PHYSICIAN STATEMENT I saw and evaluated the patient. I reviewed the resident's note and discussed the case with the resident. I agree with the resident's findings and plan as documented. SUBJECTIVE: Patient is better today. no fever or chills. Vital Signs Temperature 98 F 08/29/19 15:11 Pulse Rate 82 08/29/19 15:11 Respiratory Rate 20 08/29/19 15:11 Blood Pressure 124/75 08/29/19 15:11 O2 Sat by Pulse Oximetry (%) 86 L 08/29/19 12:17 GENERAL: The patient is awake, alert, oriented, with mild distress on exertion HEAD: Normal with no signs of trauma. EYES: PERRL, extraocular movements intact, sclera anicteric, conjunctiva clear. ENT: Ears normal, oropharynx clear without exudates, moist mucous membranes. NECK: Trachea midline, full range of motion, supple. LUNGS: decreased BS BL, + wheezes/Rhonchi. HEART: Regular rate and rhythm, S1, S2 without murmur, rub or gallop. ABDOMEN: Soft, NT,ND, no guarding, no rebound, no hepatosplenomegaly, no masses. EXTREMITIES: 2+ pulses, warm, well-perfused, no edema. NEUROLOGICAL: Cranial nerves II through XII grossly intact. Normal speech, gait not observed. PSYCH: Normal mood, normal affect. SKIN: Warm, dry, normal turgor, no rashes or lesions noted CBCD WBC 8.5 K/mm3 (4.0-10.0) 08/29/19 07:25 RBC 4.01 M/mm3 (4.00-5.60) 08/29/19 07:25 Hgb 8.6 GM/dL (11.7-16.9) L 08/29/19 07:25 Hct 28.5 % (35.4-49) L 08/29/19 07:25 MCV 71.1 fl (80-96) L 08/29/19 07:25 MCHC 30.1 g/dl (32.0-35.9) L 08/29/19 07:25 RDW 31.8 % (11.9-15.9) H 08/29/19 07:25 Plt Count 227 K/MM3 (134-434) 08/29/19 07:25 MPV 9.4 fl (7.5-11.1) 08/29/19 07:25 CMP Sodium 137 mmol/L (136-145) 08/29/19 07:25 Potassium 3.5 mmol/L (3.5-5.1) 08/29/19 07:25 Chloride 104 mmol/L (98-107) 08/29/19 07:25 Carbon Dioxide 25 mmol/L (21-32) 08/29/19 07:25 Anion Gap 9 MMOL/L (8-16) 08/29/19 07:25 BUN 17.6 mg/dL (7-18) 08/29/19 07:25 Creatinine 0.8 mg/dL (0.55-1.3) 08/29/19 07:25 Random Glucose 167 mg/dL (74-106) H 08/29/19 07:25 Calcium 7.9 mg/dL (8.5-10.1) L 08/29/19 07:25 Total Bilirubin 0.3 mg/dL (0.2-1) 08/29/19 07:25 AST 56 U/L (15-37) H 08/29/19 07:25 ALT 112 U/L (13-61) H 08/29/19 07:25 Alkaline Phosphatase 70 U/L (45-117) 08/29/19 07:25 Total Protein 5.5 g/dl (6.4-8.2) L 08/29/19 07:25 Albumin 1.9 g/dl (3.4-5.0) L 08/29/19 07:25 CARDIAC ENZYMES Troponin I < 0.02 ng/ml (0.00-0.05) 08/26/19 14:00 Current Medications Generic Name Dose Route Start Last Admin Trade Name Freq PRN Reason Stop Dose Admin Acetaminophen 650 mg 08/26/19 16:40 08/29/19 16:47 Tylenol - PO 650 mg Q6H PRN Administration Fever Or Pain Albuterol Sulfate 1 amp 08/26/19 17:20 08/28/19 23:50 Ventolin 0.083% Nebulizer Soln - NEB 1 amp Q4H PRN Administration SHORT OF BREATH/WHEEZING Albuterol Sulfate 2 puff 08/27/19 19:19 Ventolin Hfa Inhaler - IH Q6H PRN SHORT OF BREATH/WHEEZING Albuterol/Ipratropium 1 amp 08/26/19 20:00 08/29/19 16:14 Duoneb - NEB 1 amp RQID CHUCK Administration Amlodipine Besylate 10 mg 08/28/19 10:00 08/29/19 10:47 Norvasc - PO 10 mg DAILY CHUCK Administration Budesonide/Formoterol Fumarate 2 puff 08/26/19 00:15 08/29/19 10:53 Symbicort 80/4.5mcg - IH 2 puff BID CHUCK Administration Clonidine 0.3 mg 08/27/19 13:03 08/29/19 11:01 Catapres - PO 0.3 mg BID CHUCK Administration Doxepin HCl 150 mg 08/27/19 22:00 08/28/19 22:17 Sinequan - PO 150 mg HS CHUCK Administration Enoxaparin Sodium 40 mg 08/26/19 12:00 08/29/19 10:57 Lovenox - SQ Not Given DAILY CHUCK Guaifenesin 10 ml 08/26/19 17:20 08/28/19 22:17 Diabetic Tussin Dm - PO 10 ml Q4H PRN Administration COUGH Piperacillin Sod/Tazobactam 50 mls @ 100 mls/hr 08/26/19 18:00 08/29/19 10:47 Sod 3.375 gm/ Dextrose IVPB 100 mls/hr Q8H-IV CHUCK Administration Protocol Vancomycin HCl 1,000 mg in 250 mls @ 166.667 mls/hr 08/26/19 22:00 08/29/19 11:33 Vancomycin (Pre-Docked) IVPB 166.667 mls/hr BID CHUCK Administration Protocol Lorazepam 2 mg 08/27/19 00:41 08/29/19 11:01 Ativan - PO 2 mg TID PRN Administration ANXIETY Methylprednisolone Sodium Succinate 40 mg 08/27/19 18:00 08/29/19 10:48 Solu-Medrol - IVPUSH 40 mg Q8H-IV CHUCK Administration Non-Formulary Medication 20 mg 08/28/19 10:00 Dextroamphetamine/Amphetamine [Adderall Xr 20 Mg Capsule] PO DAILY CHUCK Sodium Chloride 3 ml 08/26/19 12:03 08/28/19 02:55 Normal Saline For Inhalation - IH 3 ml Q6H PRN Administration Dyspnea Tamsulosin HCl 0.4 mg 08/27/19 22:00 08/28/19 22:17 Flomax - PO 0.4 mg HS CHUCK Administration Home Medications Medication Instructions Recorded Amlodipine Besylate [Norvasc -] 10 mg PO DAILY 12/24/11 Budesonide/Formeterol Fumarate 1 inh PO BID 01/21/19 [SYMBICORT 80/4.5mcg -] Sennosides [Senna -] 2 tab PO HS PRN tablet 04/27/19 Tamsulosin HCl [Flomax -] 0.4 mg PO HS cap.er.24h 04/27/19 Simvastatin 40 mg PO DAILY 08/13/19 Aspirin [Aspirin EC] 81 mg PO DAILY 08/14/19 Dextroamphetamine/Amphetamine 20 mg PO DAILY 08/14/19 [Adderall Xr 20 mg Capsule] Doxepin HCl [Sinequan -] 150 mg PO HS 08/14/19 LORazepam [Lorazepam] 2 mg PO TID 08/14/19 cloNIDine HCL [Catapres -] 0.3 mg PO BID 08/14/19 Amoxicillin/Potassium Clav 1 each PO BID #10 tablet 08/18/19 [Augmentin 875-125 Tablet] Doxepin HCl [Sinequan -] 175 mg PO HS capsule 08/18/19 predniSONE [Deltasone -] 10 mg PO ASDIR #42 tablet 08/18/19 Microbiology 08/27/19 11:11 Urine For Antigen Detection Legionella Antigen - Final 08/27/19 11:11 Urine For Antigen Detection Streptococcus pneumoniae Antigen (M - Final 08/26/19 06:45 Urine - Urine Clean Catch Urine Culture - Final Yeast Like Organism 08/26/19 06:45 Blood - Peripheral Venous Blood Culture - Preliminary NO GROWTH OBTAINED AFTER 24 HOURS, INCUBATION TO CONTINUE FOR 4 DAYS. 08/26/19 06:45 Blood - Peripheral Venous Blood Culture - Preliminary NO GROWTH OBTAINED AFTER 24 HOURS, INCUBATION TO CONTINUE FOR [address] of the chest: chronic interstitial lung disease with honey combing ,worsened since the prior examination. increased consolidation/atelectasis with multiple tiny calcification in the right lobe 5mm pulmonary nodule in the right middle lobe , 6mm interval consolidation in the right upper lobe post.suggestive of pneumonia. close follow up needed. ASSESSMENT AND PLAN: Patient is a 68yom with PMhx of HTN, HLD, COPD, CAD, atrial fibrillation, BPH, anxiety, h/o TBI, and recent hospitalization at [place] for PNA. is admitted for having acute shortness of breath and subjective fever of 103 at home. # Acute on Chronic Hypoxic Respiratory Failure: improving , due to ILD chronic with consolidation with diagnosis of influ A, Pna on last admission .continue IV ZOSYN/ VANCOMYCIN as per ID , conitnue solumedrol IV , nebs, O2 to keep SpO2>90%, legionella and Pneumonia antigen are negative # s/p Influenza A continue Tamiflu #Acute Copd exacerbation , continue steroid on po taper dose , NEbs , BIPAP if needed # HTN: cont clonidine and norvasc # H/o bipolar, TBI, possible ADHD : has to bring Adderall from home . cont ativan # H/o A fib: per records, he had refused to be on AC outpt f/u of chest imaging to ensure resolution of infiltrates, 5mm pulmonary nodule in the right middle lobe , 6mm interval consolidation in the right upper lobe post.suggestive of pneumonia DVT Px: Lovenox PT evaluation will check with pulm. regarding dc planning pre and post O2
[2019-08-29] MEDS ORDERED: PT OWN MED DRAWER 7, Y5N ONE (17:16)
--- NOTE | 2019-08-29 17:16 | PN ---
Physical Exam: SUBJECTIVE: Patient seen and examined O/N: having abdominal pain, got mylanta Stating that he thinks his management is grossly mismanaged. Claims that he feels better and stating that he wants to go home OBJECTIVE: Vital Signs Period Temp Pulse Resp BP Sys/Walter Pulse Ox Last 24 Hr 97.8 F-98.6 F 72-107 20-22 114-134/54-75 86-97 GENERAL: The patient is alert. Mild agitated HEAD: Normal with no signs of trauma. EYES: sclera anicteric, conjunctiva clear. No ptosis. ENT: Ears normal, nares patent, oropharynx clear without exudates, moist mucous membranes. NECK: Trachea midline, full range of motion, supple. Neg cervical LAD LUNGS: b/l coarse BS, diffuse wheezes, no accessory muscle use. HEART: Regular rate and rhythm, S1, S2 without murmur, rub or gallop. ABDOMEN: Soft, nontender, nondistended, normoactive bowel sounds, no guarding, no rebound EXTREMITIES: 2+ pulses, warm, well-perfused, no edema. NEUROLOGICAL: mildly agitated speech PSYCH: agitated, anxious SKIN: Warm, dry, normal turgor, no rashes or lesions noted Laboratory Results - last 24 hr 08/29/19 08/29/19 07:25 07:25 WBC 8.5 RBC 4.01 Hgb 8.6 L Hct 28.5 L MCV 71.1 L MCH 21.4 L MCHC 30.1 L RDW 31.8 H Plt Count 227 MPV 9.4 Sodium 137 Potassium 3.5 Chloride 104 Carbon Dioxide 25 Anion Gap 9 BUN 17.6 Creatinine 0.8 Est GFR (CKD-EPI)AfAm 105.64 Est GFR (CKD-EPI)NonAf 91.15 Random Glucose 167 H Calcium 7.9 L Phosphorus 3.3 Magnesium 2.5 H Total Bilirubin 0.3 AST 56 H ALT 112 H Alkaline Phosphatase 70 Total Protein 5.5 L Albumin 1.9 L Active Medications Generic Name Dose Route Start Last Admin Trade Name Freq PRN Reason Stop Dose Admin Acetaminophen 650 mg 08/26/19 16:40 08/29/19 16:47 Tylenol - PO 650 mg Q6H PRN Administration Fever Or Pain Albuterol Sulfate 1 amp 08/26/19 17:20 08/28/19 23:50 Ventolin 0.083% Nebulizer Soln - NEB 1 amp Q4H PRN Administration SHORT OF BREATH/WHEEZING Albuterol Sulfate 2 puff 08/27/19 19:19 Ventolin Hfa Inhaler - IH Q6H PRN SHORT OF BREATH/WHEEZING Albuterol/Ipratropium 1 amp 08/26/19 20:00 08/29/19 16:14 Duoneb - NEB 1 amp RQID CHUCK Administration Amlodipine Besylate 10 mg 08/28/19 10:00 08/29/19 10:47 Norvasc - PO 10 mg DAILY [facility] Administration Budesonide/Formoterol Fumarate 2 puff 08/26/19 00:15 08/29/19 10:53 Symbicort 80/4.5mcg - IH 2 puff BID [facility]UCK Administration Clonidine 0.3 mg 08/27/19 13:03 08/29/19 11:01 Catapres - PO 0.3 mg BID CHUCK Administration Doxepin HCl 150 mg 08/27/19 22:00 08/28/19 22:17 Sinequan - PO 150 mg HS CHUCK Administration Enoxaparin Sodium 40 mg 08/26/19 12:00 08/29/19 10:57 Lovenox - SQ Not Given DAILY [facility] Guaifenesin 10 ml 08/26/19 17:20 08/28/19 22:17 Diabetic Tussin Dm - PO 10 ml Q4H PRN Administration COUGH Piperacillin Sod/Tazobactam 50 mls @ 100 mls/hr 08/26/19 18:00 08/29/19 10:47 Sod 3.375 gm/ Dextrose IVPB 100 mls/hr Q8H-IV CHUCK Administration Protocol Vancomycin HCl 1,000 mg in 250 mls @ 166.667 mls/hr 08/26/19 22:00 08/29/19 11:33 Vancomycin (Pre-Docked) IVPB 166.667 mls/hr BID CHUCK Administration Protocol Lorazepam 2 mg 08/27/19 00:41 08/29/19 11:01 Ativan - PO 2 mg TID PRN Administration ANXIETY Methylprednisolone Sodium Succinate 40 mg 08/27/19 18:00 08/29/19 10:48 Solu-Medrol - IVPUSH 40 mg Q8H-IV CHUCK Administration Non-Formulary Medication 20 mg 08/28/19 10:00 Dextroamphetamine/Amphetamine [Adderall Xr 20 Mg Capsule] PO DAILY [facility]UCK Sodium Chloride 3 ml 08/26/19 12:03 08/28/19 02:55 Normal Saline For Inhalation - IH 3 ml Q6H PRN Administration Dyspnea Tamsulosin HCl 0.4 mg 08/27/19 22:00 08/28/19 22:17 Flomax - PO 0.4 mg HS CHUCK Administration ASSESSMENT/PLAN: 68M with PMH of COPD, AFib, HTN, traumatic brain injury (TBI), and Bipolar disorder presented to the ER with SOB, productive cough, home fever; symptoms < 24hs after discharge from recent sepsis 2/2 flu admission. #Sepsis 2/2 bacteria PNA vs viral PNA vs Influenza A > WBC 14.7, tachypnea > Influenza A: positive > CT Chest: chronic interstitial lung disease, w/ honeycombing(worsened); increased consolidation/atelectasis of RLL. RML lobe w/ stable 6mm nodule. RUL consolidation, new interval change > BCX(08/26/19): NGTD > UCX(08/26/19): yeast-like > UA: neg nitrite, neg LE - Abx regimen: --zosyn + vanco --day 3 - Tamiflu 75mg BID for positive Influenza A --day 3 ---stopped dt received 4d prior - supplemental O2, PRN - Droplet isolation precaution - ID consulted (Dr. Montanez) #Hx of COPD - Duoneb QID - solumedrol 40mg q8h - symbicort 80/4.5mcg - Guaifenesin #Hx of anemia - Last admission from Aug 13 to : H/H was 5.5/20, 3xPRBC, Venoferx1, FOBT -, GI recommended outpatient F/U for EGD/Colonoscopy > H/H: 10.4/33.4 --> 8.6/28.5 #Transaminitis --likely fatty liver - AST 56, ALT 112 #Hx of AFib - pt refused AC #Hx of HTN - norvasc 10mg, clonidine 0.3 BID #Hx of HLD - atorvastatin 10mg #Hx of BPH - tamsulosin #Hx of psychiatric illness (Bipolar disorder) - Doxepin and Lorazepam; Adderall #FEN - sodium-controlled diet #DVT - SCDs for now, will monitor H/H to make sure pt not bleeding Visit type - Emergency Visit Emergency Visit: No - New Patient This patient is new to me today: No - Critical Care Critical Care patient: No ATTENDING PHYSICIAN STATEMENT I saw and evaluated the patient. I reviewed the resident's note and discussed the case with the resident. I agree with the resident's findings and plan as documented. SUBJECTIVE: OBJECTIVE: ASSESSMENT AND PLAN:
[2019-08-29] MEDS: DOXEPIN HCL 25 MG CAPSULE PO SCH (21:48)
[2019-08-29] MEDS: TAMSULOSIN HCL 0.4 MG CAP PO SCH (21:49)
[2019-08-30] MEDS ORDERED: PIPERACILLIN/TAZOBACTAM 3.375 GM VIAL IVPB ONE ×2 (00:24→16:59)
[2019-08-30] MEDS ORDERED: DEXTROSE 5%-WATER - 50 ML IVPB ONE ×2 (00:25→16:59)
[2019-08-30] MEDS: methylPREDNISolone NA SUCC 40 MG/1 ML VIAL IVPUSH SCH ×3 (01:23→17:19)
[2019-08-30] MEDS: PIPERACILLIN/TAZOB 3.375 GM 3.375 GM in DEXTROSE 5%-WATER - 50 ML IVPB SCH ×3 (01:23→17:17)
[2019-08-30 07:35] LABS: HEMATOCRIT 29.3 % (35.4-49); HEMOGLOBIN 8.9 GM/dL (11.7-16.9); MCH 21.4 pg (25.7-33.7); MCHC 30.3 g/dl (32.0-35.9); MEAN CELL VOLUME 70.4 fl (80-96); MEAN PLT VOLUME 8.7 fl (7.5-11.1); PLATELET COUNT 247 K/MM3 (134-434); RBC 4.16 M/mm3 (4.00-5.60); RDW 31.5 % (11.9-15.9); WHITE BLOOD COUNT 11.9 K/mm3 (4.0-10.0)
[2019-08-30 08:03] LABS: BLOOD UREA NITROGEN 19.5 mg/dL (7-18); CALCIUM 8.2 mg/dL (8.5-10.1); CREATININE 0.8 mg/dL (0.55-1.3); MAGNESIUM 2.5 mg/dL (1.8-2.4); PHOSPHOROUS 3.3 mg/dL (2.5-4.9); POTASSIUM 4.1 mmol/L (3.5-5.1)
--- NOTE | 2019-08-30 09:48 | PN ---
Progress Note (short form) - Note Progress Note: Reports feeling much better today. Wants to leave. Some dry cough. No hemoptysis. No fever. Intake & Output 08/27/19 08/28/19 08/29/19 08/30/19 23:59 23:59 23:59 23:59 Intake Total 1100 1550 1300 50 Balance 1100 1550 1300 50 Weight 183 lb 6.4 oz 183 lb 181 lb 8 oz Last Vital Signs Temp Pulse Resp BP Pulse Ox 97.9 F 63 20 123/73 92 L 08/30/19 06:00 08/30/19 06:00 08/30/19 06:00 08/30/19 06:00 08/29/19 22:00 Active Medications Acetaminophen (Tylenol -) 650 mg PO Q6H PRN PRN Reason: Fever Or Pain Last Admin: 08/29/19 21:57 Dose: 650 mg Albuterol Sulfate (Ventolin 0.083% Nebulizer Soln -) 1 amp NEB Q4H PRN PRN Reason: SHORT OF BREATH/WHEEZING Last Admin: 08/28/19 23:50 Dose: 1 amp Albuterol Sulfate (Ventolin Hfa Inhaler -) 2 puff IH Q6H PRN PRN Reason: SHORT OF BREATH/WHEEZING Albuterol/Ipratropium (Duoneb -) 1 amp NEB RQID [facility] Last Admin: 08/29/19 20:45 Dose: 1 amp Amlodipine Besylate (Norvasc -) 10 mg PO DAILY [facility] Last Admin: 08/29/19 10:47 Dose: 10 mg Budesonide/Formoterol Fumarate (Symbicort 80/4.5mcg -) 2 puff IH BID [facility] Last Admin: 08/29/19 22:34 Dose: 2 puff Clonidine (Catapres -) 0.3 mg PO BID [facility] Last Admin: 08/29/19 21:48 Dose: 0.3 mg Doxepin HCl (Sinequan -) 150 mg PO HS [facility] Last Admin: 08/29/19 21:48 Dose: 150 mg Enoxaparin Sodium (Lovenox -) 40 mg SQ DAILY [facility] Last Admin: 08/29/19 10:57 Dose: Not Given Guaifenesin (Diabetic Tussin Dm -) 10 ml PO Q4H PRN PRN Reason: COUGH Last Admin: 08/28/19 22:17 Dose: 10 ml Piperacillin Sod/Tazobactam (Sod 3.375 gm/ Dextrose) 50 mls @ 100 mls/hr IVPB Q8H-IV [facility]; Protocol Last Admin: 08/30/19 01:23 Dose: 100 mls/hr Vancomycin HCl (Vancomycin (Pre-Docked)) 1,000 mg in 250 mls @ 166.667 mls/hr IVPB BID [facility]; Protocol Last Admin: 08/29/19 21:49 Dose: 166.667 mls/hr Lorazepam (Ativan -) 2 mg PO TID PRN PRN Reason: ANXIETY Last Admin: 08/29/19 21:56 Dose: 2 mg Methylprednisolone Sodium Succinate (Solu-Medrol -) 40 mg IVPUSH Q8H-IV [facility] Last Admin: 08/30/19 01:23 Dose: 40 mg Non-Formulary Medication (Dextroamphetamine/Amphetamine [Adderall Xr 20 Mg Capsule]) 20 mg PO DAILY [facility] Sodium Chloride (Normal Saline For Inhalation -) 3 ml IH Q6H PRN PRN Reason: Dyspnea Last Admin: 08/28/19 02:55 Dose: 3 ml Tamsulosin HCl (Flomax -) 0.4 mg PO HS [facility] Last Admin: 08/29/19 21:49 Dose: 0.4 mg Gen: NAD at rest Heart: RRR Lung: few rhonchi, diminished throughout, no wheeze Abd: soft, nontender Ext: no edema Laboratory Results - last 24 hr 08/30/19 08/30/19 06:30 06:30 WBC 11.9 H RBC 4.16 Hgb 8.9 L Hct 29.3 L MCV 70.4 L MCH 21.4 L MCHC 30.3 L RDW 31.5 H Plt Count 247 MPV 8.7 Sodium 138 Potassium 4.1 Chloride 106 Carbon Dioxide 24 Anion Gap 8 BUN 19.5 H Creatinine 0.8 Est GFR (CKD-EPI)AfAm 105.64 Est GFR (CKD-EPI)NonAf 91.15 Random Glucose 169 H Calcium 8.2 L Phosphorus 3.3 Magnesium 2.5 H A/P Acute on Chronic Hypoxic Respiratory Failure Pneumonia Acute COPD/Bronchiectasis Exacerbation Atrial Fibrillation HTN BPH h/o TBI Bipolar Disorder Anemia - ABX Per ID - Can change to Prednisone in discharge is anticipated - inhaled bronchodilators standing and PRN - O2 to keep SpO2>90% - rate control - DVT prophylaxis - outpt f/u of chest imaging to ensure resolution of infiltrates - Due to high supplemental O2 requirement patient is a very high risk for readmission and would benefit from inpatient Pulmonary Rehab Dr Brown
[2019-08-30] MEDS: amLODIPine BESYLATE 10 MG TABLET (FP) PO SCH (10:01)
[2019-08-30] MEDS: VANCOMYCIN 1 GRAM (PRE-DOCKED) 1,000 MG/250 ML BAG IVPB SCH ×2 (10:02→21:39)
[2019-08-30] MEDS: cloNIDine HCL 0.1 MG TABLET PO SCH ×2 (10:13→21:39)
[2019-08-30] MEDS: BUDESONIDE/FORMETEROL FUMARATE 80/4.5 mcg INHALER IH SCH ×2 (10:15→21:41)
[2019-08-30] MEDS: ALBUTEROL SO4 2.5/IPRATROPIUM 0.5 INH SOL 3 ML VIAL.NEB. NEB SCH ×3 (12:50→20:40)
[2019-08-30] MEDS: ALBUTEROL SO4 0.083% IH SOL 2.5 MG/3 ML VIAL.NEB. NEB PRN (15:00)
[2019-08-30] MEDS: ACETAMINOPHEN 325 MG TABLET (FP) PO PRN (15:02)
[2019-08-30] MEDS: LORazepam 1 MG TABLET PO PRN ×2 (15:03→23:45)
--- NOTE | 2019-08-30 17:38 | PN ---
Teaching Attending Note Name of Resident: Delfino Watters ATTENDING PHYSICIAN STATEMENT I saw and evaluated the patient. I reviewed the resident's note and discussed the case with the resident. I agree with the resident's findings and plan as documented. SUBJECTIVE: Patient is feeling better but continues to have low saturation without O2. Vital Signs Temperature 97.9 F 08/30/19 17:16 Pulse Rate 74 08/30/19 17:16 Respiratory Rate 20 08/30/19 17:16 Blood Pressure 120/70 08/30/19 17:16 O2 Sat by Pulse Oximetry (%) 87 L 08/30/19 15:50 GENERAL: The patient is awake, alert, oriented, with mild distress on exertion HEAD: Normal with no signs of trauma. EYES: PERRL, extraocular movements intact, sclera anicteric, conjunctiva clear. ENT: Ears normal, oropharynx clear without exudates, moist mucous membranes. NECK: Trachea midline, full range of motion, supple. LUNGS: decreased BS BL, + wheezes/Rhonchi. HEART: Regular rate and rhythm, S1, S2 without murmur, rub or gallop. ABDOMEN: Soft, NT,ND, no guarding, no rebound, no hepatosplenomegaly, no masses. EXTREMITIES: 2+ pulses, warm, well-perfused, no edema. NEUROLOGICAL: Cranial nerves II through XII grossly intact. Normal speech, gait not observed. PSYCH: Normal mood, normal affect. SKIN: Warm, dry, normal turgor, no rashes or lesions noted CBCD WBC 11.9 K/mm3 (4.0-10.0) H 08/30/19 06:30 RBC 4.16 M/mm3 (4.00-5.60) 08/30/19 06:30 Hgb 8.9 GM/dL (11.7-16.9) L 08/30/19 06:30 Hct 29.3 % (35.4-49) L 08/30/19 06:30 MCV 70.4 fl (80-96) L 08/30/19 06:30 MCHC 30.3 g/dl (32.0-35.9) L 08/30/19 06:30 RDW 31.5 % (11.9-15.9) H 08/30/19 06:30 Plt Count 247 K/MM3 (134-434) 08/30/19 06:30 MPV 8.7 fl (7.5-11.1) 08/30/19 06:30 CMP Sodium 138 mmol/L (136-145) 08/30/19 06:30 Potassium 4.1 mmol/L (3.5-5.1) 08/30/19 06:30 Chloride 106 mmol/L (98-107) 08/30/19 06:30 Carbon Dioxide 24 mmol/L (21-32) 08/30/19 06:30 Anion Gap 8 MMOL/L (8-16) 08/30/19 06:30 BUN 19.5 mg/dL (7-18) H 08/30/19 06:30 Creatinine 0.8 mg/dL (0.55-1.3) 08/30/19 06:30 Random Glucose 169 mg/dL (74-106) H 08/30/19 06:30 Calcium 8.2 mg/dL (8.5-10.1) L 08/30/19 06:30 Total Bilirubin 0.3 mg/dL (0.2-1) 08/29/19 07:25 AST 56 U/L (15-37) H 08/29/19 07:25 ALT 112 U/L (13-61) H 08/29/19 07:25 Alkaline Phosphatase 70 U/L (45-117) 08/29/19 07:25 Total Protein 5.5 g/dl (6.4-8.2) L 08/29/19 07:25 Albumin 1.9 g/dl (3.4-5.0) L 08/29/19 07:25 CARDIAC ENZYMES Troponin I < 0.02 ng/ml (0.00-0.05) 08/26/19 14:00 Current Medications Generic Name Dose Route Start Last Admin Trade Name Freq PRN Reason Stop Dose Admin Acetaminophen 650 mg 08/26/19 16:40 08/30/19 15:02 Tylenol - PO 650 mg Q6H PRN Administration Fever Or Pain Albuterol Sulfate 1 amp 08/26/19 17:20 08/30/19 15:00 Ventolin 0.083% Nebulizer Soln - NEB 1 amp Q4H PRN Administration SHORT OF BREATH/WHEEZING Albuterol Sulfate 2 puff 08/27/19 19:19 Ventolin Hfa Inhaler - IH Q6H PRN SHORT OF BREATH/WHEEZING Albuterol/Ipratropium 1 amp 08/26/19 20:00 08/30/19 12:50 Duoneb - NEB 1 amp RQID [facility] Administration Amlodipine Besylate 10 mg 08/28/19 10:00 08/30/19 10:01 Norvasc - PO 10 mg DAILY [facility] Administration Budesonide/Formoterol Fumarate 2 puff 08/26/19 00:15 08/30/19 10:15 Symbicort 80/4.5mcg - IH 2 puff BID [facility] Administration Clonidine 0.3 mg 08/27/19 13:03 08/30/19 10:13 Catapres - PO 0.3 mg BID [facility] Administration Doxepin HCl 150 mg 08/27/19 22:00 08/29/19 21:48 Sinequan - PO 150 mg HS [facility] Administration Enoxaparin Sodium 40 mg 08/26/19 12:00 08/29/19 10:57 Lovenox - SQ Not Given DAILY [facility] Guaifenesin 10 ml 08/26/19 17:20 08/28/19 22:17 Diabetic Tussin Dm - PO 10 ml Q4H PRN Administration COUGH Piperacillin Sod/Tazobactam 50 mls @ 100 mls/hr 08/26/19 18:00 08/30/19 17:17 Sod 3.375 gm/ Dextrose IVPB 100 mls/hr Q8H-IV [facility] Administration Protocol Vancomycin HCl 1,000 mg in 250 mls @ 166.667 mls/hr 08/26/19 22:00 08/30/19 10:02 Vancomycin (Pre-Docked) IVPB 166.667 mls/hr BID [facility] Administration Protocol Lorazepam 2 mg 08/27/19 00:41 08/30/19 15:03 Ativan - PO 2 mg TID PRN Administration ANXIETY Methylprednisolone Sodium Succinate 40 mg 08/27/19 18:00 08/30/19 17:19 Solu-Medrol - IVPUSH 40 mg Q8H-IV [facility] Administration Non-Formulary Medication 20 mg 08/28/19 10:00 Dextroamphetamine/Amphetamine [Adderall Xr 20 Mg Capsule] PO DAILY [facility] Sodium Chloride 3 ml 08/26/19 12:03 08/28/19 02:55 Normal Saline For Inhalation - IH 3 ml Q6H PRN Administration Dyspnea Tamsulosin HCl 0.4 mg 08/27/19 22:00 08/29/19 21:49 Flomax - PO 0.4 mg HS [facility] Administration Home Medications Medication Instructions Recorded Amlodipine Besylate [Norvasc -] 10 mg PO DAILY 12/24/11 Budesonide/Formeterol Fumarate 1 inh PO BID 01/21/19 [SYMBICORT 80/4.5mcg -] Tamsulosin HCl [Flomax -] 0.4 mg PO HS cap.er.24h 04/27/19 Simvastatin 40 mg PO DAILY 08/13/19 Dextroamphetamine/Amphetamine 20 mg PO DAILY 08/14/19 [Adderall Xr 20 mg Capsule] Doxepin HCl [Sinequan -] 150 mg PO HS 08/14/19 LORazepam [Lorazepam] 2 mg PO TID 08/14/19 cloNIDine HCL [Catapres -] 0.3 mg PO BID 08/14/19 Albuterol 2.5/Ipratropium 0.5 1 amp NEB RQID #30 amp 08/25/19 [Duoneb -] Cefuroxime Axetil [Cefuroxime] 500 mg PO Q12H #10 tablet 08/25/19 Nebulizer and Compressor [[place]ton 1 each ASDIR #1 each 08/25/19 Choice Nebulizer] Oseltamivir Phosphate [Tamiflu -] 75 mg PO BID #4 capsule 08/25/19 predniSONE [Deltasone -] See Taper PO ASDIR #42 tablet 08/25/19 Home Medications Medication Instructions Recorded Amlodipine Besylate [Norvasc -] 10 mg PO DAILY 12/24/11 Budesonide/Formeterol Fumarate 1 inh PO BID 01/21/19 [SYMBICORT 80/4.5mcg -] Sennosides [Senna -] 2 tab PO HS PRN tablet 04/27/19 Tamsulosin HCl [Flomax -] 0.4 mg PO HS cap.er.24h 04/27/19 Simvastatin 40 mg PO DAILY 08/13/19 Aspirin [Aspirin EC] 81 mg PO DAILY 08/14/19 Dextroamphetamine/Amphetamine 20 mg PO DAILY 08/14/19 [Adderall Xr 20 mg Capsule] Doxepin HCl [Sinequan -] 150 mg PO HS 08/14/19 LORazepam [Lorazepam] 2 mg PO TID 08/14/19 cloNIDine HCL [Catapres -] 0.3 mg PO BID 08/14/19 Amoxicillin/Potassium Clav 1 each PO BID #10 tablet 08/18/19 [Augmentin 875-125 Tablet] Doxepin HCl [Sinequan -] 175 mg PO HS capsule 08/18/19 predniSONE [Deltasone -] 10 mg PO ASDIR #42 tablet 08/18/19 Microbiology 08/27/19 11:11 Urine For Antigen Detection Legionella Antigen - Final 08/27/19 11:11 Urine For Antigen Detection Streptococcus pneumoniae Antigen (M - Final 08/26/19 06:45 Urine - Urine Clean Catch Urine Culture - Final Yeast Like Organism 08/26/19 06:45 Blood - Peripheral Venous Blood Culture - Preliminary NO GROWTH OBTAINED AFTER 24 HOURS, INCUBATION TO CONTINUE FOR 4 DAYS. 08/26/19 06:45 Blood - Peripheral Venous Blood Culture - Preliminary NO GROWTH OBTAINED AFTER 24 HOURS, INCUBATION TO CONTINUE FOR [address] of the chest: chronic interstitial lung disease with honey combing ,worsened since the prior examination. increased consolidation/atelectasis with multiple tiny calcification in the right lobe 5mm pulmonary nodule in the right middle lobe , 6mm interval consolidation in the right upper lobe post.suggestive of pneumonia. close follow up needed. ASSESSMENT AND PLAN: Patient is a 68yom with PMhx of HTN, HLD, COPD, CAD, atrial fibrillation, BPH, anxiety, h/o TBI, and recent hospitalization at [facility] for PNA. is admitted for having acute shortness of breath and subjective fever of 103 at home. # Acute on Chronic Hypoxic Respiratory Failure: improving , due to ILD chronic with consolidation with diagnosis of influ A, Pna on last admission .continue IV ZOSYN/ VANCOMYCIN as per ID , conitnue solumedrol IV , nebs, O2 to keep SpO2>90%, legionella and Pneumonia antigen are negative , check with ID the length of IV antibiotic # s/p Influenza A continue Tamiflu completed #Acute Copd exacerbation , continue steroid IV on po taper dose , NEbs , BIPAP if needed # HTN: cont clonidine and norvasc # H/o bipolar, TBI, possible ADHD : has to bring Adderall from home . cont ativan # H/o A fib: per records, he had refused to be on AC outpt f/u of chest imaging to ensure resolution of infiltrates, 5mm pulmonary nodule in the right middle lobe , 6mm interval consolidation in the right upper lobe post.suggestive of pneumonia DVT Px: Lovenox PT evaluation will check with pulm. regarding dc planning pre and post O2 86% on 6liter, oxygen tank needed pulmonary rehab if patient agrees
[2019-08-30] MEDS ORDERED: PT OWN MED DRAWER 7, Y5N ONE ×2 (18:57→20:18)
--- NOTE | 2019-08-30 18:58 | PN ---
Physical Exam: SUBJECTIVE: Patient seen and examined NAEON Denies feeling better, instead stating "I'm GOOD!". OBJECTIVE: Vital Signs Period Temp Pulse Resp BP Sys/Walter Pulse Ox Last 24 Hr 97.7 F-98.0 F 63-117 20-20 107-153/58-73 87-94 GENERAL: The patient is alert. Mod agitated HEAD: Normal with no signs of trauma. EYES: sclera anicteric, conjunctiva clear. No ptosis. ENT: Ears normal, nares patent, oropharynx clear without exudates, moist mucous membranes. NECK: Trachea midline, full range of motion, supple. Neg cervical LAD LUNGS: b/l coarse BS, diffuse wheezes, no accessory muscle use. 4L NC HEART: Regular rate and rhythm, S1, S2 without murmur, rub or gallop. ABDOMEN: Soft, nontender, nondistended, normoactive bowel sounds, no guarding, no rebound EXTREMITIES: 2+ pulses, warm, well-perfused, no edema. NEUROLOGICAL: mildly agitated speech PSYCH: agitated, anxious SKIN: Warm, dry, normal turgor, no rashes or lesions noted Laboratory Results - last 24 hr 08/30/19 08/30/19 06:30 06:30 WBC 11.9 H RBC 4.16 Hgb 8.9 L Hct 29.3 L MCV 70.4 L MCH 21.4 L MCHC 30.3 L RDW 31.5 H Plt Count 247 MPV 8.7 Sodium 138 Potassium 4.1 Chloride 106 Carbon Dioxide 24 Anion Gap 8 BUN 19.5 H Creatinine 0.8 Est GFR (CKD-EPI)AfAm 105.64 Est GFR (CKD-EPI)NonAf 91.15 Random Glucose 169 H Calcium 8.2 L Phosphorus 3.3 Magnesium 2.5 H Active Medications Generic Name Dose Route Start Last Admin Trade Name Freq PRN Reason Stop Dose Admin Acetaminophen 650 mg 08/26/19 16:40 08/30/19 15:02 Tylenol - PO 650 mg Q6H PRN Administration Fever Or Pain Albuterol Sulfate 1 amp 08/26/19 17:20 08/30/19 15:00 Ventolin 0.083% Nebulizer Soln - NEB 1 amp Q4H PRN Administration SHORT OF BREATH/WHEEZING Albuterol Sulfate 2 puff 08/27/19 19:19 Ventolin Hfa Inhaler - IH Q6H PRN SHORT OF BREATH/WHEEZING Albuterol/Ipratropium 1 amp 08/26/19 20:00 08/30/19 17:46 Duoneb - NEB 1 amp RQID [facility] Administration Amlodipine Besylate 10 mg 08/28/19 10:00 08/30/19 10:01 Norvasc - PO 10 mg DAILY [facility] Administration Budesonide/Formoterol Fumarate 2 puff 08/26/19 00:15 08/30/19 10:15 Symbicort 80/4.5mcg - IH 2 puff BID [facility] Administration Clonidine 0.3 mg 08/27/19 13:03 08/30/19 10:13 Catapres - PO 0.3 mg BID [facility] Administration Doxepin HCl 150 mg 08/27/19 22:00 08/29/19 21:48 Sinequan - PO 150 mg HS [facility] Administration Enoxaparin Sodium 40 mg 08/26/19 12:00 08/29/19 10:57 Lovenox - SQ Not Given DAILY [facility] Guaifenesin 10 ml 08/26/19 17:20 08/28/19 22:17 Diabetic Tussin Dm - PO 10 ml Q4H PRN Administration COUGH Piperacillin Sod/Tazobactam 50 mls @ 100 mls/hr 08/26/19 18:00 08/30/19 17:17 Sod 3.375 gm/ Dextrose IVPB 100 mls/hr Q8H-IV [facility] Administration Protocol Vancomycin HCl 1,000 mg in 250 mls @ 166.667 mls/hr 08/26/19 22:00 08/30/19 10:02 Vancomycin (Pre-Docked) IVPB 166.667 mls/hr BID [facility] Administration Protocol Lorazepam 2 mg 08/27/19 00:41 08/30/19 15:03 Ativan - PO 2 mg TID PRN Administration ANXIETY Methylprednisolone Sodium Succinate 40 mg 08/27/19 18:00 08/30/19 17:19 Solu-Medrol - IVPUSH 40 mg Q8H-IV [facility] Administration Non-Formulary Medication 20 mg 08/28/19 10:00 Dextroamphetamine/Amphetamine [Adderall Xr 20 Mg Capsule] PO DAILY [facility] Sodium Chloride 3 ml 08/26/19 12:03 08/28/19 02:55 Normal Saline For Inhalation - IH 3 ml Q6H PRN Administration Dyspnea Tamsulosin HCl 0.4 mg 08/27/19 22:00 08/29/19 21:49 Flomax - PO 0.4 mg HS [facility] Administration ASSESSMENT/PLAN: 68M with PMH of COPD, AFib, HTN, traumatic brain injury (TBI), and Bipolar disorder presented to the ER with SOB, productive cough, home fever; symptoms < 24hs after discharge from recent sepsis 2/2 flu admission. [place] #Sepsis 2/2 bacteria PNA vs viral PNA vs Influenza A > WBC 14.7, tachypnea > Influenza A: positive > CT Chest: chronic interstitial lung disease, w/ honeycombing(worsened); increased consolidation/atelectasis of RLL. RML lobe w/ stable 6mm nodule. RUL consolidation, new interval change > BCX(08/26/19): NGTD > UCX(08/26/19): yeast-like > UA: neg nitrite, neg LE - Abx regimen: --zosyn + vanco --day 3 - Tamiflu 75mg BID for positive Influenza A --day 3 ---stopped dt received 4d prior - supplemental O2, PRN - Droplet isolation precaution - ID consulted (Dr. Montanez) #Hx of COPD - Duoneb QID - solumedrol 40mg q8h - symbicort 80/4.5mcg - Guaifenesin - Pulm(Hattie) recs --can change to Prednisone upon d/c --oupt chest imaging to eval for infiltrate resolution --rec inpt Pulm Rehab - Pre/Post: --RA: 86% Rest, HR 102 --Walking w/ NC 6L: 87%, HR 117 #Hx of anemia - Last admission from Aug 13 to : H/H was 5.5/20, 3xPRBC, Venoferx1, FOBT -, GI recommended outpatient F/U for EGD/Colonoscopy > H/H: 10.4/33.4 --> 8.6/28.5 #Transaminitis --likely fatty liver - AST 56, ALT 112 #Hx of AFib - pt refused AC #Hx of HTN - norvasc 10mg, clonidine 0.3 BID #Hx of HLD - atorvastatin 10mg #Hx of BPH - tamsulosin #Hx of psychiatric illness (Bipolar disorder) - Doxepin and Lorazepam; Adderall #FEN - sodium-controlled diet #DVT - SCDs for now, will monitor H/H to make sure pt not bleeding Visit type - Emergency Visit Emergency Visit: No - New Patient This patient is new to me today: No - Critical Care Critical Care patient: No ATTENDING PHYSICIAN STATEMENT I saw and evaluated the patient. I reviewed the resident's note and discussed the case with the resident. I agree with the resident's findings and plan as documented. SUBJECTIVE: OBJECTIVE: ASSESSMENT AND PLAN:
[2019-08-30] MEDS: guaiFENesin/D-M SUGAR-FREE/ACLHOL-FREE 118 ML BOTTLE PO PRN (18:59)
[2019-08-30] MEDS: ARTIFICIAL TEARS (POLYVINYL ALCOHOL) OPTH DROPS OU PRN (19:24)
[2019-08-30] MEDS: TAMSULOSIN HCL 0.4 MG CAP PO SCH (21:39)
[2019-08-30] MEDS: DOXEPIN HCL 25 MG CAPSULE PO SCH (21:39)
[2019-08-31] MEDS ORDERED: DEXTROSE 5%-WATER - 50 ML IVPB ONE ×2 (01:07→09:55)
[2019-08-31] MEDS ORDERED: PIPERACILLIN/TAZOBACTAM 3.375 GM VIAL IVPB ONE ×2 (01:07→09:55)
[2019-08-31] MEDS: PIPERACILLIN/TAZOB 3.375 GM 3.375 GM in DEXTROSE 5%-WATER - 50 ML IVPB SCH ×2 (01:32→10:06)
[2019-08-31] MEDS: methylPREDNISolone NA SUCC 40 MG/1 ML VIAL IVPUSH SCH ×3 (01:32→17:25)
--- NOTE | 2019-08-31 07:31 | PN ---
Progress Note (short form) - Note Progress Note: Reports fine. Wants to leave. Says he is wiling to go to rehab "for a few days ". Some dry cough. No hemoptysis. No fever. Intake & Output 08/28/19 08/29/19 08/30/19 08/31/19 23:59 23:59 23:59 23:59 Intake Total 1550 1300 1600 50 Output Total 600 400 Balance 1550 1300 1000 -350 Weight 183 lb 6.4 oz 183 lb 181 lb 8 oz 182 lb 9.6 oz Last Vital Signs Temp Pulse Resp BP Pulse Ox 98.8 F 80 20 134/69 93 L 08/31/19 06:00 08/31/19 06:00 08/31/19 06:00 08/31/19 06:00 08/30/19 22:00 Active Medications Acetaminophen (Tylenol -) 650 mg PO Q6H PRN PRN Reason: Fever Or Pain Last Admin: 08/30/19 15:02 Dose: 650 mg Albuterol Sulfate (Ventolin 0.083% Nebulizer Soln -) 1 amp NEB Q4H PRN PRN Reason: SHORT OF BREATH/WHEEZING Last Admin: 08/30/19 15:00 Dose: 1 amp Albuterol Sulfate (Ventolin Hfa Inhaler -) 2 puff IH Q6H PRN PRN Reason: SHORT OF BREATH/WHEEZING Albuterol/Ipratropium (Duoneb -) 1 amp NEB RQID [facility] Last Admin: 08/30/19 20:40 Dose: 1 amp Amlodipine Besylate (Norvasc -) 10 mg PO DAILY [facility] Last Admin: 08/30/19 10:01 Dose: 10 mg Artificial Tears (Artificial Tears) 1 drop OU BID PRN PRN Reason: DRY EYES Last Admin: 08/30/19 19:24 Dose: 1 drop Budesonide/Formoterol Fumarate (Symbicort 80/4.5mcg -) 2 puff IH BID [facility] Last Admin: 08/30/19 21:41 Dose: 2 puff Clonidine (Catapres -) 0.3 mg PO BID [facility] Last Admin: 08/30/19 21:39 Dose: 0.3 mg Doxepin HCl (Sinequan -) 150 mg PO HS [facility] Last Admin: 08/30/19 21:39 Dose: 150 mg Enoxaparin Sodium (Lovenox -) 40 mg SQ DAILY [facility] Last Admin: 08/29/19 10:57 Dose: Not Given Guaifenesin (Diabetic Tussin Dm -) 10 ml PO Q4H PRN PRN Reason: COUGH Last Admin: 08/30/19 18:59 Dose: 10 ml Piperacillin Sod/Tazobactam (Sod 3.375 gm/ Dextrose) 50 mls @ 100 mls/hr IVPB Q8H-IV [facility]; Protocol Last Admin: 08/31/19 01:32 Dose: 100 mls/hr Vancomycin HCl (Vancomycin (Pre-Docked)) 1,000 mg in 250 mls @ 166.667 mls/hr IVPB BID [facility]; Protocol Last Admin: 08/30/19 21:39 Dose: 166.667 mls/hr Lorazepam (Ativan -) 2 mg PO TID PRN PRN Reason: ANXIETY Last Admin: 08/30/19 23:45 Dose: 2 mg Methylprednisolone Sodium Succinate (Solu-Medrol -) 40 mg IVPUSH Q8H-IV [facility] Last Admin: 08/31/19 01:32 Dose: 40 mg Non-Formulary Medication (Dextroamphetamine/Amphetamine [Adderall Xr 20 Mg Capsule]) 20 mg PO DAILY [facility] Sodium Chloride (Normal Saline For Inhalation -) 3 ml IH Q6H PRN PRN Reason: Dyspnea Last Admin: 08/28/19 02:55 Dose: 3 ml Tamsulosin HCl (Flomax -) 0.4 mg PO HS [facility] Last Admin: 08/30/19 21:39 Dose: 0.4 mg Gen: NAD at rest Heart: RRR Lung: few rhonchi, diminished throughout, no wheeze Abd: soft, nontender Ext: no edema Laboratory Results - last 24 hr 08/30/19 08/30/19 06:30 06:30 WBC 11.9 H RBC 4.16 Hgb 8.9 L Hct 29.3 L MCV 70.4 L MCH 21.4 L MCHC 30.3 L RDW 31.5 H Plt Count 247 MPV 8.7 Sodium 138 Potassium 4.1 Chloride 106 Carbon Dioxide 24 Anion Gap 8 BUN 19.5 H Creatinine 0.8 Est GFR (CKD-EPI)AfAm 105.64 Est GFR (CKD-EPI)NonAf 91.15 Random Glucose 169 H Calcium 8.2 L Phosphorus 3.3 Magnesium 2.5 H A/P Acute on Chronic Hypoxic Respiratory Failure Pneumonia Acute COPD/Bronchiectasis Exacerbation Atrial Fibrillation HTN BPH h/o TBI Bipolar Disorder Anemia - ABX Per ID - Can change to Prednisone taper in discharge when anticipated - inhaled bronchodilators standing and PRN - O2 to keep SpO2>90% - rate control - DVT prophylaxis - outpt f/u of chest imaging to ensure resolution of infiltrates - Due to high supplemental O2 requirement patient is a very high risk for readmission and would benefit from inpatient Pulmonary Rehab. Patient says he is in agreement. Spoke to his last night who is also in agreement. Dr Brown
[2019-08-31] MEDS: ALBUTEROL SO4 2.5/IPRATROPIUM 0.5 INH SOL 3 ML VIAL.NEB. NEB SCH ×4 (08:15→16:31)
[2019-08-31 09:26] LABS: HEMATOCRIT 28.6 % (35.4-49); HEMOGLOBIN 8.6 GM/dL (11.7-16.9); MCH 21.3 pg (25.7-33.7); MCHC 30.1 g/dl (32.0-35.9); MEAN PLT VOLUME 9.1 fl (7.5-11.1); PLATELET COUNT 233 K/MM3 (134-434); RBC 4.03 M/mm3 (4.00-5.60); RDW 31.5 % (11.9-15.9)
[2019-08-31] MEDS ORDERED: PT OWN MED DRAWER 7, Y5N ONE ×2 (09:55→21:26)
[2019-08-31 10:05] LABS: BILIRUBIN,TOTAL 0.6 mg/dL (0.2-1); BLOOD UREA NITROGEN 16.2 mg/dL (7-18); CREATININE 0.7 mg/dL (0.55-1.3); MAGNESIUM 2.4 mg/dL (1.8-2.4); TOT PROT 5.9 g/dl (6.4-8.2)
[2019-08-31] MEDS: cloNIDine HCL 0.1 MG TABLET PO SCH ×2 (10:06→22:22)
[2019-08-31] MEDS: ACETAMINOPHEN 325 MG TABLET (FP) PO PRN (10:07)
[2019-08-31] MEDS: amLODIPine BESYLATE 10 MG TABLET (FP) PO SCH (10:07)
[2019-08-31] MEDS: BUDESONIDE/FORMETEROL FUMARATE 80/4.5 mcg INHALER IH SCH ×2 (10:08→22:24)
[2019-08-31] MEDS: VANCOMYCIN 1 GRAM (PRE-DOCKED) 1,000 MG/250 ML BAG IVPB SCH (10:52)
--- NOTE | 2019-08-31 11:00 | PN ---
Progress Note, Physician History of Present Illness: AWAKE IN BED REPORTS BREATHING IMPROVED NO C/O CHEST PAIN/ COUGH NO FEVER/CHILLS - Current Medication List Current Medications: Active Medications Acetaminophen (Tylenol -) 650 mg PO Q6H PRN PRN Reason: Fever Or Pain Last Admin: 08/31/19 10:07 Dose: 650 mg Albuterol Sulfate (Ventolin 0.083% Nebulizer Soln -) 1 amp NEB Q4H PRN PRN Reason: SHORT OF BREATH/WHEEZING Last Admin: 08/30/19 15:00 Dose: 1 amp Albuterol Sulfate (Ventolin Hfa Inhaler -) 2 puff IH Q6H PRN PRN Reason: SHORT OF BREATH/WHEEZING Albuterol/Ipratropium (Duoneb -) 1 amp NEB RQID [facility] Last Admin: 08/31/19 08:15 Dose: 1 amp Amlodipine Besylate (Norvasc -) 10 mg PO DAILY [facility] Last Admin: 08/31/19 10:07 Dose: 10 mg Artificial Tears (Artificial Tears) 1 drop OU BID PRN PRN Reason: DRY EYES Last Admin: 08/30/19 19:24 Dose: 1 drop Budesonide/Formoterol Fumarate (Symbicort 80/4.5mcg -) 2 puff IH BID [facility] Last Admin: 08/31/19 10:08 Dose: 2 puff Clonidine (Catapres -) 0.3 mg PO BID [facility] Last Admin: 08/31/19 10:06 Dose: 0.3 mg Doxepin HCl (Sinequan -) 150 mg PO HS [facility] Last Admin: 08/30/19 21:39 Dose: 150 mg Enoxaparin Sodium (Lovenox -) 40 mg SQ DAILY [facility] Last Admin: 08/29/19 10:57 Dose: Not Given Guaifenesin (Diabetic Tussin Dm -) 10 ml PO Q4H PRN PRN Reason: COUGH Last Admin: 08/30/19 18:59 Dose: 10 ml Piperacillin Sod/Tazobactam (Sod 3.375 gm/ Dextrose) 50 mls @ 100 mls/hr IVPB Q8H-IV [facility]; Protocol Last Admin: 08/31/19 10:06 Dose: 100 mls/hr Vancomycin HCl (Vancomycin (Pre-Docked)) 1,000 mg in 250 mls @ 166.667 mls/hr IVPB BID [facility]; Protocol Last Admin: 08/31/19 10:52 Dose: 166.667 mls/hr Lorazepam (Ativan -) 2 mg PO TID PRN PRN Reason: ANXIETY Last Admin: 08/30/19 23:45 Dose: 2 mg Methylprednisolone Sodium Succinate (Solu-Medrol -) 40 mg IVPUSH Q8H-IV [facility] Last Admin: 08/31/19 10:07 Dose: 40 mg Non-Formulary Medication (Dextroamphetamine/Amphetamine [Adderall Xr 20 Mg Capsule]) 20 mg PO DAILY [facility] Sodium Chloride (Normal Saline For Inhalation -) 3 ml IH Q6H PRN PRN Reason: Dyspnea Last Admin: 08/28/19 02:55 Dose: 3 ml Tamsulosin HCl (Flomax -) 0.4 mg PO HS [facility] Last Admin: 08/30/19 21:39 Dose: 0.4 mg - Objective Vital Signs: Vital Signs Temperature 97.6 F 08/31/19 10:00 Pulse Rate 70 08/31/19 10:00 Respiratory Rate 22 H 08/31/19 10:00 Blood Pressure 128/75 08/31/19 10:00 O2 Sat by Pulse Oximetry (%) 93 L 08/30/19 22:00 Constitutional: Yes: No Distress Eyes: Yes: Conjunctiva Clear Cardiovascular: Yes: Regular Rate and Rhythm, S1, S2 Respiratory: Yes: Rhonchi Gastrointestinal: Yes: Normal Bowel Sounds, Soft. No: Tenderness Edema: No Labs: CBC, BMP 08/31/19 07:49 08/31/19 07:49 INR, PTT INR 1.28 (0.83-1.09) H 08/27/19 07:10 Assessment/Plan ACUTE EXACERBATION COPD PNEUMONIA S/P INFLUENZA SUBSTITUTE AUGMENTIN PO X 7D
[2019-08-31] MEDS ORDERED: ACETAMINOPHEN/CAFFEINE/BUTALBITAL 1 TAB PO ONE (12:05)
[2019-08-31] MEDS: LORazepam 1 MG TABLET PO PRN (12:08)
[2019-08-31] MEDS: AMOX TR/POT CLAV 875MG/125MG TABLETS (FP) PO SCH (17:25)
[2019-08-31] MEDS: FLUTICASONE PROP 0.05% 16 GM NASAL SPRAY NS PRN (17:26)
--- NOTE | 2019-08-31 18:45 | PN ---
Teaching Attending Note Name of Resident: Delfino Watters ATTENDING PHYSICIAN STATEMENT I saw and evaluated the patient. I reviewed the resident's note and discussed the case with the resident. I agree with the resident's findings and plan as documented. SUBJECTIVE: seen around 12 pm No fever or chills. SOB has improved . No N/V . no cough . OBJECTIVE: NAD. MMM. no JVD. CV; RRR, no MRG lungs: b/l anterior crackles, R base crackles posteriorly. scattered wheezes. acceptable air entry Ext : No edema or erythema . ASSESSMENT AND PLAN: 68 y/o man with h/o HTN, hyperlipidemia, COPD, CAD, atrial fibrillation, BPH, anxiety, h/o TBI, recent admission for PNA and flu who came back with worsening. 1- PNA 2- flu A 3- Acute COPD exacerbation 4- h/o HTN 5- H/o Bipolar Do Plan: - cont steroids . will change to po when dc - cotn Nebs - finished Tamiflu - CT of cehst reviewed. - f/u with pulm on R lung nodule - cont Augmentin - cont clonidine and Norvasc - not on AC - DVT PX : cont LOvenox - cont home lorazepam He is agreeable to pulm rehab placement . hopefully tomorrow
--- NOTE | 2019-08-31 19:21 | PN ---
Physical Exam: SUBJECTIVE: Patient seen and examined JOSE MANUELON Agitated and expressing his desire for only [facility] for Pulmonary Rehab OBJECTIVE: Vital Signs Period Temp Pulse Resp BP Sys/Walter Pulse Ox Last 24 Hr 97.6 F-98.8 F 69-81 20-22 108-134/59-75 93-97 GENERAL: The patient is alert. Mod agitated HEAD: Normal with no signs of trauma. EYES: sclera anicteric, conjunctiva clear. No ptosis. ENT: Ears normal, nares patent, oropharynx clear without exudates, moist mucous membranes. NECK: Trachea midline, full range of motion, supple. Neg cervical LAD LUNGS: b/l coarse BS, diffuse wheezes, no accessory muscle use. 4L NC HEART: Regular rate and rhythm, S1, S2 without murmur, rub or gallop. ABDOMEN: Soft, nontender, nondistended, normoactive bowel sounds, no guarding, no rebound EXTREMITIES: 2+ pulses, warm, well-perfused, no edema. NEUROLOGICAL: mildly agitated speech PSYCH: agitated, anxious SKIN: Warm, dry, normal turgor, no rashes or lesions noted Laboratory Results - last 24 hr 08/31/19 08/31/19 07:49 07:49 WBC 13.0 H RBC 4.03 Hgb 8.6 L Hct 28.6 L MCV 71.0 L MCH 21.3 L MCHC 30.1 L RDW 31.5 H Plt Count 233 MPV 9.1 Sodium 137 Potassium 4.0 Chloride 103 Carbon Dioxide 25 Anion Gap 8 BUN 16.2 Creatinine 0.7 Est GFR (CKD-EPI)AfAm 111.60 Est GFR (CKD-EPI)NonAf 96.29 Random Glucose 146 H Calcium 8.0 L Magnesium 2.4 Total Bilirubin 0.6 AST 36 ALT 148 H Alkaline Phosphatase 73 Total Protein 5.9 L Albumin 2.0 L Active Medications Generic Name Dose Route Start Last Admin Trade Name Freq PRN Reason Stop Dose Admin Acetaminophen 650 mg 08/26/19 16:40 08/31/19 10:07 Tylenol - PO 650 mg Q6H PRN Administration Fever Or Pain Albuterol Sulfate 2 puff 08/27/19 19:19 Ventolin Hfa Inhaler - IH Q6H PRN SHORT OF BREATH/WHEEZING Albuterol/Ipratropium 1 amp 08/26/19 20:00 08/31/19 16:31 Duoneb - NEB 1 amp RQID CHUCK Administration Amlodipine Besylate 10 mg 08/28/19 10:00 08/31/19 10:07 Norvasc - PO 10 mg DAILY CHUCK Administration Amoxicillin/Clavulanate Potassium 1 tab 08/31/19 17:30 08/31/19 17:25 Augmentin - 875mg Tablet PO 1 tab BID@0800,1730 CHUCK Administration Artificial Tears 1 drop 08/30/19 18:41 08/30/19 19:24 Artificial Tears OU 1 drop BID PRN Administration DRY EYES Budesonide/Formoterol Fumarate 2 puff 08/26/19 00:15 08/31/19 10:08 Symbicort 80/4.5mcg - IH 2 puff BID CHUCK Administration Clonidine 0.3 mg 08/27/19 13:03 08/31/19 10:06 Catapres - PO 0.3 mg BID CHUCK Administration Doxepin HCl 150 mg 08/27/19 22:00 08/30/19 21:39 Sinequan - PO 150 mg HS CHUCK Administration Enoxaparin Sodium 40 mg 08/26/19 12:00 08/29/19 10:57 Lovenox - SQ Not Given DAILY CHUCK Fluticasone Propionate 1 spray 08/31/19 16:41 08/31/19 17:26 Flonase - NS 1 spray BID PRN Administration NASAL CONGESTION Guaifenesin 10 ml 08/26/19 17:20 08/30/19 18:59 Diabetic Tussin Dm - PO 10 ml Q4H PRN Administration COUGH Lorazepam 2 mg 08/27/19 00:41 08/31/19 12:08 Ativan - PO 2 mg TID PRN Administration ANXIETY Methylprednisolone Sodium Succinate 40 mg 08/27/19 18:00 08/31/19 17:25 Solu-Medrol - IVPUSH 40 mg Q8H-IV CHUCK Administration Non-Formulary Medication 20 mg 08/28/19 10:00 Dextroamphetamine/Amphetamine [Adderall Xr 20 Mg Capsule] PO DAILY CHUCK Sodium Chloride 3 ml 08/26/19 12:03 08/28/19 02:55 Normal Saline For Inhalation - IH 3 ml Q6H PRN Administration Dyspnea Tamsulosin HCl 0.4 mg 08/27/19 22:00 08/30/19 21:39 Flomax - PO 0.4 mg HS CHUCK Administration ASSESSMENT/PLAN: 68M with PMH of COPD, AFib, HTN, traumatic brain injury (TBI), and Bipolar disorder presented to the ER with SOB, productive cough, home fever; symptoms < 24hs after discharge from recent sepsis 2/2 flu admission. Admitted for PNA. CT chest findings worse than previous admission. Pt to undergo inpatient pulmonary rehab. #Sepsis 2/2 bacteria PNA vs viral PNA vs Influenza A > WBC 14.7, tachypnea > Influenza A: positive > CT Chest: chronic interstitial lung disease, w/ honeycombing(worsened); increased consolidation/atelectasis of RLL. RML lobe w/ stable 6mm nodule. RUL consolidation, new interval change > BCX(08/26/19): NGTD > UCX(08/26/19): yeast-like > UA: neg nitrite, neg LE - Abx regimen: ID consulted (Dr. Simpson) --zosyn + vanco --> Augmentin(for 7d) - Tamiflu 75mg BID for positive Influenza A --day 3 ---stopped dt received 4d prior - supplemental O2, PRN - Droplet isolation precaution #Hx of COPD - Duoneb QID - solumedrol 40mg q8h - symbicort 80/4.5mcg - Guaifenesin - Pulm(Hattie) recs --can change to Prednisone upon d/c --oupt chest imaging to eval for infiltrate resolution --rec inpt Pulm Rehab - Pre/Post --pending repeat prior to PulmRehab --RA: 86% Rest, HR 102 --Walking w/ NC 6L: 87%, HR 117 #Hx of anemia - Last admission from Aug 13 to : H/H was 5.5/20, 3xPRBC, Venoferx1, FOBT -, GI recommended outpatient F/U for EGD/Colonoscopy > H/H: 10.4/33.4 --> 8.6/28.5 #Transaminitis --likely fatty liver - AST 56, ALT 112 #Hx of AFib - pt refused AC #Hx of HTN - norvasc 10mg, clonidine 0.3 BID #Hx of HLD - atorvastatin 10mg #Hx of BPH - tamsulosin #Hx of psychiatric illness (Bipolar disorder) - Doxepin and Lorazepam; Adderall #FEN - sodium-controlled diet #DVT - SCDs for now, will monitor H/H to make sure pt not bleeding Visit type - Emergency Visit Emergency Visit: No - New Patient This patient is new to me today: No - Critical Care Critical Care patient: No ATTENDING PHYSICIAN STATEMENT I saw and evaluated the patient. I reviewed the resident's note and discussed the case with the resident. I agree with the resident's findings and plan as documented. SUBJECTIVE: OBJECTIVE: ASSESSMENT AND PLAN:
[2019-08-31] MEDS: DOXEPIN HCL 25 MG CAPSULE PO SCH (22:23)
[2019-08-31] MEDS: TAMSULOSIN HCL 0.4 MG CAP PO SCH (22:23)
[2019-09-01] MEDS: methylPREDNISolone NA SUCC 40 MG/1 ML VIAL IVPUSH SCH (01:51)
[2019-09-01] MEDS: guaiFENesin/D-M SUGAR-FREE/ACLHOL-FREE 118 ML BOTTLE PO PRN ×2 (07:17→21:53)
[2019-09-01] MEDS ORDERED: PT OWN MED DRAWER 7, Y5N ONE ×3 (07:21→21:06)
--- NOTE | 2019-09-01 08:33 | PN ---
Progress Note (short form) - Note Progress Note: Reports he is doing fine. Some dry cough. No hemoptysis. No fever. Intake & Output 08/29/19 08/30/19 08/31/19 09/01/19 23:59 23:59 23:59 23:59 Intake Total 1300 1600 850 0 Output Total 600 1100 500 Balance 1300 1000 -250 -500 Weight 183 lb 181 lb 8 oz 182 lb 9.6 oz 178 lb 6.4 oz Last Vital Signs Temp Pulse Resp BP Pulse Ox 97.9 F 69 22 H 115/57 L 97 09/01/19 06:00 09/01/19 06:00 09/01/19 06:00 09/01/19 06:00 08/31/19 22:00 Active Medications Acetaminophen (Tylenol -) 650 mg PO Q6H PRN PRN Reason: Fever Or Pain Last Admin: 08/31/19 10:07 Dose: 650 mg Albuterol Sulfate (Ventolin Hfa Inhaler -) 2 puff IH Q6H PRN PRN Reason: SHORT OF BREATH/WHEEZING Amlodipine Besylate (Norvasc -) 10 mg PO DAILY [facility] Last Admin: 08/31/19 10:07 Dose: 10 mg Amoxicillin/Clavulanate Potassium (Augmentin - 875mg Tablet) 1 tab PO BID@0800, 1730 [facility] Last Admin: 08/31/19 17:25 Dose: 1 tab Artificial Tears (Artificial Tears) 1 drop OU BID PRN PRN Reason: DRY EYES Last Admin: 08/30/19 19:24 Dose: 1 drop Budesonide/Formoterol Fumarate (Symbicort 80/4.5mcg -) 2 puff IH BID [facility] Last Admin: 08/31/19 22:24 Dose: 2 puff Clonidine (Catapres -) 0.3 mg PO BID [facility] Last Admin: 08/31/19 22:22 Dose: 0.3 mg Doxepin HCl (Sinequan -) 150 mg PO [facility] Last Admin: 08/31/19 22:23 Dose: 150 mg Enoxaparin Sodium (Lovenox -) 40 mg SQ DAILY [facility] Last Admin: 08/29/19 10:57 Dose: Not Given Fluticasone Propionate (Flonase -) 1 spray NS BID PRN PRN Reason: NASAL CONGESTION Last Admin: 08/31/19 17:26 Dose: 1 spray Guaifenesin (Diabetic Tussin Dm -) 10 ml PO Q4H PRN PRN Reason: COUGH Last Admin: 09/01/19 07:17 Dose: 10 ml Lorazepam (Ativan -) 2 mg PO TID PRN PRN Reason: ANXIETY Last Admin: 08/31/19 12:08 Dose: 2 mg Non-Formulary Medication (Dextroamphetamine/Amphetamine [Adderall Xr 20 Mg Capsule]) 20 mg PO DAILY CHUCK Prednisone (Deltasone -) 40 mg PO DAILY CHUCK Sodium Chloride (Normal Saline For Inhalation -) 3 ml IH Q6H PRN PRN Reason: Dyspnea Last Admin: 08/28/19 02:55 Dose: 3 ml Tamsulosin HCl (Flomax -) 0.4 mg PO HS CHUCK Last Admin: 08/31/19 22:23 Dose: 0.4 mg Gen: NAD at rest Heart: RRR Lung: bilateral coarse breath sounds, no expiratory wheeze Abd: soft, nontender Ext: no edema Laboratory Results - last 24 hr 08/31/19 08/31/19 07:49 07:49 WBC 13.0 H RBC 4.03 Hgb 8.6 L Hct 28.6 L MCV 71.0 L MCH 21.3 L MCHC 30.1 L RDW 31.5 H Plt Count 233 MPV 9.1 Sodium 137 Potassium 4.0 Chloride 103 Carbon Dioxide 25 Anion Gap 8 BUN 16.2 Creatinine 0.7 Est GFR (CKD-EPI)AfAm 111.60 Est GFR (CKD-EPI)NonAf 96.29 Random Glucose 146 H Calcium 8.0 L Magnesium 2.4 Total Bilirubin 0.6 AST 36 ALT 148 H Alkaline Phosphatase 73 Total Protein 5.9 L Albumin 2.0 L A/P Acute on Chronic Hypoxic Respiratory Failure Pneumonia Acute COPD/Bronchiectasis Exacerbation Atrial Fibrillation HTN BPH h/o TBI Bipolar Disorder Anemia - ABX Per ID - Can change to Prednisone - inhaled bronchodilators standing and PRN - O2 to keep SpO2>90% - rate control - DVT prophylaxis - outpt f/u of chest imaging to ensure resolution of infiltrates - Due to high supplemental O2 requirement patient is a very high risk for readmission and would benefit from inpatient Pulmonary Rehab. Patient says he is in agreement. Spoke to his previously who is also in agreement. Dr Brown
[2019-09-01] MEDS ORDERED: ALBUTEROL SO4 0.083% IH SOL 2.5 MG/3 ML VIAL.NEB. NEB PRN (08:37)
[2019-09-01] MEDS: cloNIDine HCL 0.1 MG TABLET PO SCH ×2 (09:24→21:38)
[2019-09-01] MEDS: AMOX TR/POT CLAV 875MG/125MG TABLETS (FP) PO SCH ×2 (09:24→17:16)
[2019-09-01] MEDS: predniSONE 20 MG TABLET (UD) PO SCH (09:24)
[2019-09-01] MEDS: amLODIPine BESYLATE 10 MG TABLET (FP) PO SCH (09:24)
[2019-09-01] MEDS: BUDESONIDE/FORMETEROL FUMARATE 80/4.5 mcg INHALER IH SCH ×2 (09:25→21:39)
[2019-09-01] MEDS: ARTIFICIAL TEARS (POLYVINYL ALCOHOL) OPTH DROPS OU PRN (09:25)
[2019-09-01] MEDS: FLUTICASONE PROP 0.05% 16 GM NASAL SPRAY NS PRN (09:25)
[2019-09-01] MEDS: LORazepam 1 MG TABLET PO PRN ×2 (09:55→21:38)
--- NOTE | 2019-09-01 15:03 | PN ---
Physical Exam: SUBJECTIVE: Patient seen and examined KEVIN Endorsing that he feels good. Again, expressing that he is willing to go to Pulmonary Rehab, but only for a week or so OBJECTIVE: Vital Signs Period Temp Pulse Resp BP Sys/Walter Pulse Ox Last 24 Hr 97.7 F-98.5 F 60-88 20-22 105-127/57-73 90-97 GENERAL: The patient is alert. Mod irritable HEAD: Normal with no signs of trauma. EYES: sclera anicteric, conjunctiva clear. No ptosis. ENT: Ears normal, nares patent, oropharynx clear without exudates, moist mucous membranes. NECK: Trachea midline, full range of motion, supple. Neg cervical LAD LUNGS: b/l coarse BS, diffuse wheezes, no accessory muscle use. 4L NC, speaking short sentences HEART: Regular rate and rhythm, S1, S2 without murmur, rub or gallop. ABDOMEN: Soft, nontender, nondistended, normoactive bowel sounds, no guarding, no rebound EXTREMITIES: 2+ pulses, warm, well-perfused, no edema. NEUROLOGICAL: mildly agitated speech PSYCH: agitated, anxious SKIN: Warm, dry, normal turgor, no rashes or lesions noted Active Medications Generic Name Dose Route Start Last Admin Trade Name Freq PRN Reason Stop Dose Admin Acetaminophen 650 mg 08/26/19 16:40 08/31/19 10:07 Tylenol - PO 650 mg Q6H PRN Administration Fever Or Pain Albuterol Sulfate 2 puff 08/27/19 19:19 Ventolin Hfa Inhaler - IH Q6H PRN SHORT OF BREATH/WHEEZING Albuterol Sulfate 1 amp 09/01/19 08:37 Ventolin 0.083% Nebulizer Soln - NEB Q4H PRN SHORT OF BREATH/WHEEZING Amlodipine Besylate 10 mg 08/28/19 10:00 09/01/19 09:24 Norvasc - PO 10 mg DAILY CHUCK Administration Amoxicillin/Clavulanate Potassium 1 tab 08/31/19 17:30 09/01/19 09:24 Augmentin - 875mg Tablet PO 1 tab BID@0800,1730 CHUCK Administration Artificial Tears 1 drop 08/30/19 18:41 09/01/19 09:25 Artificial Tears OU 1 drop BID PRN Administration DRY EYES Budesonide/Formoterol Fumarate 2 puff 08/26/19 00:15 09/01/19 09:25 Symbicort 80/4.5mcg - IH 2 puff BID CHUCK Administration Clonidine 0.3 mg 08/27/19 13:03 09/01/19 09:24 Catapres - PO 0.3 mg BID CHUCK Administration Doxepin HCl 150 mg 08/27/19 22:00 08/31/19 22:23 Sinequan - PO 150 mg HS CHUCK Administration Enoxaparin Sodium 40 mg 08/26/19 12:00 08/29/19 10:57 Lovenox - SQ Not Given DAILY CHUCK Fluticasone Propionate 1 spray 08/31/19 16:41 09/01/19 09:25 Flonase - NS 1 spray BID PRN Administration NASAL CONGESTION Guaifenesin 10 ml 08/26/19 17:20 09/01/19 07:17 Diabetic Tussin Dm - PO 10 ml Q4H PRN Administration COUGH Lorazepam 2 mg 08/27/19 00:41 09/01/19 09:55 Ativan - PO 2 mg TID PRN Administration ANXIETY Non-Formulary Medication 20 mg 08/28/19 10:00 Dextroamphetamine/Amphetamine [Adderall Xr 20 Mg Capsule] PO DAILY CHUCK Prednisone 40 mg 09/01/19 10:00 09/01/19 09:24 Deltasone - PO 40 mg DAILY CHUCK Administration Sodium Chloride 3 ml 08/26/19 12:03 08/28/19 02:55 Normal Saline For Inhalation - IH 3 ml Q6H PRN Administration Dyspnea Tamsulosin HCl 0.4 mg 08/27/19 22:00 08/31/19 22:23 Flomax - PO 0.4 mg HS CHUCK Administration ASSESSMENT/PLAN: 68M with PMH of COPD, AFib, HTN, traumatic brain injury (TBI), and Bipolar disorder presented to the ER with SOB, productive cough, home fever; symptoms < 24hs after discharge from recent sepsis 2/2 flu admission. Admitted for PNA. CT chest findings worse than previous admission. Completed Tamiflu. Droplet precautions discontinued. Pt to undergo inpatient pulmonary rehab. #Sepsis 2/2 bacteria PNA vs viral PNA vs Influenza A > initially: WBC 14.7, tachypnea > Influenza A: positive > CT Chest: chronic interstitial lung disease, w/ honeycombing(worsened); increased consolidation/atelectasis of RLL. RML lobe w/ stable 6mm nodule. RUL consolidation, new interval change > BCX(08/26/19): NGTD > UCX(08/26/19): yeast-like > UA: neg nitrite, neg LE - Abx regimen: ID consulted (Dr. Simpson) --zosyn + vanco --> Augmentin(for 7d) - Tamiflu 75mg BID for positive Influenza A --completed by Hospital day 3 --- Droplet Precautions discontinued - supplemental O2, PRN #Hx of COPD - Duoneb QID - solumedrol 40mg q8h --> prednisone 40mg QD - symbicort 80/4.5mcg - Guaifenesin - Pulm(Hattie) recs --Prednisone 40mg QD --oupt chest imaging to eval for infiltrate resolution --rec inpt Pulm Rehab - Pre/Post(09/01/19) --Rest: 90%, HR 75 --Walking w/o O2: 87%, HR 88 --Walking w/ O2(4L): 90% #Hx of anemia - Last admission from Aug 13 to : H/H was 5.5/20, 3xPRBC, Venoferx1, FOBT -, GI recommended outpatient F/U for EGD/Colonoscopy > H/H: 10.4/33.4 --> 8.6/28.6 #Transaminitis --likely fatty liver - AST 36, ALT 146 #Hx of AFib - pt refused AC #Hx of HTN - norvasc 10mg, clonidine 0.3 BID #Hx of HLD - atorvastatin 10mg #Hx of BPH - tamsulosin #Hx of psychiatric illness (Bipolar disorder) - Doxepin, Lorazepam, Adderall #FEN - sodium-controlled diet #DVT - SCDs for now, will monitor H/H Visit type - Emergency Visit Emergency Visit: No - New Patient This patient is new to me today: No - Critical Care Critical Care patient: No ATTENDING PHYSICIAN STATEMENT I saw and evaluated the patient. I reviewed the resident's note and discussed the case with the resident. I agree with the resident's findings and plan as documented. SUBJECTIVE: OBJECTIVE: ASSESSMENT AND PLAN:
[2019-09-01] MEDS: ACETAMINOPHEN 325 MG TABLET (FP) PO PRN ×2 (15:05→20:20)
--- NOTE | 2019-09-01 17:06 | PN ---
Teaching Attending Note Name of Resident: Delfino Watters ATTENDING PHYSICIAN STATEMENT I saw and evaluated the patient. I reviewed the resident's note and discussed the case with the resident. I agree with the resident's findings and plan as documented. SUBJECTIVE: Seen earlier today. he did not have SOB , he did not have CP. he feels better . good appetite and tolerating his breakfast. OBJECTIVE: NAD. MMM. no JVD. CV; RRR, no MRG. lungs: b/l anterior crackles, bibasilar crackles posteriorly. improved wheezes. improved air entry today Ext: No edema or erythema . ASSESSMENT AND PLAN: 68 y/o man with h/o HTN, hyperlipidemia, COPD, CAD, atrial fibrillation, BPH, anxiety, h/o TBI, recent admission for PNA and flu who came back with worsening. 1- PNA 2- flu A 3- Acute COPD exacerbation 4- h/o HTN 5- H/o Bipolar Do 6- H/o A fib Plan: - cont steroids. po dosing today - cont Nebs. - Finished Tamiflu. - f/u with pulm on R lung nodule. - cont Augmentin day 2 / - cont clonidine and Norvasc - not on AC for A fib - DVT PX: cont Lovenox - cont home lorazepam He is agreeable to pulm rehab placement . He finally agreed to Pre-post. He needs 4 L of O2 with ambulation. Social work help is appreciated.
[2019-09-01] MEDS: TAMSULOSIN HCL 0.4 MG CAP PO SCH (21:39)
[2019-09-01] MEDS: DOXEPIN HCL 25 MG CAPSULE PO SCH (21:53)
[2019-09-02 08:10] LABS: HEMATOCRIT 32.1 % (35.4-49); HEMOGLOBIN 9.6 GM/dL (11.7-16.9); MCH 21.2 pg (25.7-33.7); MCHC 29.8 g/dl (32.0-35.9); MEAN CELL VOLUME 71.1 fl (80-96); MEAN PLT VOLUME 8.7 fl (7.5-11.1); PLATELET COUNT 261 K/MM3 (134-434); RBC 4.52 M/mm3 (4.00-5.60); RDW 30.9 % (11.9-15.9); WHITE BLOOD COUNT 16.8 K/mm3 (4.0-10.0)
[2019-09-02 08:36] LABS: BLOOD UREA NITROGEN 20.7 mg/dL (7-18); CALCIUM 8.1 mg/dL (8.5-10.1); CREATININE 0.7 mg/dL (0.55-1.3); MAGNESIUM 2.4 mg/dL (1.8-2.4); PHOSPHOROUS 2.8 mg/dL (2.5-4.9); POTASSIUM 3.8 mmol/L (3.5-5.1)
[2019-09-02] MEDS: LORazepam 1 MG TABLET PO PRN (08:39)
[2019-09-02] MEDS: AMOX TR/POT CLAV 875MG/125MG TABLETS (FP) PO SCH (08:39)
[2019-09-02] MEDS: ACETAMINOPHEN 325 MG TABLET (FP) PO PRN (08:39)
[2019-09-02] MEDS: cloNIDine HCL 0.1 MG TABLET PO SCH (10:12)
[2019-09-02] MEDS: amLODIPine BESYLATE 10 MG TABLET (FP) PO SCH (10:12)
[2019-09-02] MEDS: predniSONE 20 MG TABLET (UD) PO SCH (10:12)
[2019-09-02] MEDS: FLUTICASONE PROP 0.05% 16 GM NASAL SPRAY NS PRN (10:13)
[2019-09-02] MEDS: BUDESONIDE/FORMETEROL FUMARATE 80/4.5 mcg INHALER IH SCH (10:13)
[2019-09-02] MEDS: ARTIFICIAL TEARS (POLYVINYL ALCOHOL) OPTH DROPS OU PRN (10:13)
[2019-09-02 11:25] VITALS: BP 107/72; PULSE 78; TEMP 97.7
--- NOTE | 2019-09-02 13:13 | DS ---
Physical Exam: SUBJECTIVE: Patient seen and examined OBJECTIVE: Vital Signs Period Temp Pulse Resp BP Sys/Walter Pulse Ox Last 24 Hr 97.6 F-98.4 F 68-83 20-22 107-139/55-72 96-96 PHYSICAL EXAM GENERAL: The patient is alert. Mod irritable HEAD: Normal with no signs of trauma. EYES: sclera anicteric, conjunctiva clear. No ptosis. ENT: Ears normal, nares patent, oropharynx clear without exudates, moist mucous membranes. NECK: Trachea midline, full range of motion, supple. Neg cervical LAD LUNGS: b/l coarse BS, diffuse wheezes, no accessory muscle use. 2L NC, speaking short sentences HEART: Regular rate and rhythm, S1, S2 without murmur, rub or gallop. ABDOMEN: Soft, nontender, nondistended, normoactive bowel sounds, no guarding, no rebound EXTREMITIES: 2+ pulses, warm, well-perfused, no edema. NEUROLOGICAL: irritable PSYCH: agitated, anxious SKIN: Warm, dry, normal turgor, no rashes or lesions noted LABS Laboratory Results - last 24 hr 09/02/19 09/02/19 07:40 07:40 WBC 16.8 H RBC 4.52 Hgb 9.6 L Hct 32.1 L MCV 71.1 L MCH 21.2 L MCHC 29.8 L RDW 30.9 H Plt Count 261 MPV 8.7 Sodium 139 Potassium 3.8 Chloride 106 Carbon Dioxide 27 Anion Gap 6 L BUN 20.7 H Creatinine 0.7 Est GFR (CKD-EPI)AfAm 111.60 Est GFR (CKD-EPI)NonAf 96.29 Random Glucose 94 Calcium 8.1 L Phosphorus 2.8 Magnesium 2.4 HOSPITAL COURSE: Date of Admission:08/26/19 Date of Discharge: 09/02/19 68M with PMH of COPD, AFib, HTN, traumatic brain injury (TBI), and Bipolar disorder presented to the ER with SOB, productive cough, home fever; symptoms < 24hs after discharge from recent sepsis 2/2 flu admission. Admitted for PNA. CT chest findings worse than previous admission. Completed Tamiflu. Droplet precautions discontinued. To complete Augmentin(7d) as outpatient. Prednisone taper. Hospitalization prolonged dt multiple refusals to fully cooperate with RT for pre/post. Final pre/post showing Rest: 90%, HR 75; Walking w/o O2: 87%, HR 88; Walking w/ O2(4L): 90%. Pt d/c to inpatient pulmonary rehab. Minutes to complete discharge: 33 Discharge Summary Problems reviewed: Yes Reason For Visit: ACUTE RESP FAILURE W HYPOXEMIA,SEPSIS,PNA,COPD Current Active Problems Acute hypoxemic respiratory failure (Acute) COPD exacerbation (Acute) Pneumonia (Acute) Sepsis (Acute) Condition: Improved - Instructions Diet, Activity, Other Instructions: You were evaluated in the hospital for fever and shortness of breath. Imaging had findings suggestive of diffuse pneumonia and chronic lung disease. You were started on intravenous antibiotics. You were given Tamiflu to complete the full course. Your breathing improved with inhaled breathing treatments and steroids. It was determined that you require oxygenation, even while at rest. Your condition improved. It was recommended that you get further care at a facility that has Pulmonary Rehabilitation. MEDICATIONS: - New Medications: --Amoxicillin-Clavulanic Acid[Augmentin] 875mg, twice a day for 4 days --Prednisone[DELTASONE] with tapering dosages ---40mg twice a day x 1 days: 09/03/19 ---30mg twice a day x 2 days: 09/04/19 -- 09/05/19 ---20mg twice a day x 2 days: 09/06/19 -- 09/07/19 ---10mg twice a day x 2 days: 09/08/19 -- 09/09/19 ---5mg twice a day x 2 days: 09/10/19 -- 09/11/19 - continue your other previously prescribed medications Please follow-up with the physicians below: - Primary Care Physician: to discuss your recent hospitalization and chronic anemia - Daily Sales Audit Clerk(Ernesto): to discuss your COPD, and arrange outpatient CT Chest, continue monitoring your Right-sided pulmonary nodule - Senior Mobile Application Developer(Francisco): for outpatient upper and endoscopy, colonoscopy; to workup your chronic anemia Please seek immediate medical evaluation if you experience: - severe fever, chills - trouble breathing - confusion Referrals: Deacon Lujan MD [Primary Care Provider] - 1 Week Mary Singh DO [Staff Physician] - Biju Orozco MD, MD [Staff Physician] - Disposition: [facility] FACILITY - Home Medications Comprehensive Discharge Medication List: Ambulatory Orders Amlodipine Besylate [Norvasc -] 10 mg PO DAILY 12/24/11 Budesonide/Formeterol Fumarate [SYMBICORT 80/4.5mcg -] 1 inh PO BID 01/21/19 Tamsulosin HCl [Flomax -] 0.4 mg PO HS cap.er.24h 04/27/19 Simvastatin 40 mg PO DAILY 08/13/19 Dextroamphetamine/Amphetamine [Adderall Xr 20 mg Capsule] 20 mg PO DAILY Doxepin HCl [Sinequan -] 150 mg PO HS 08/14/19 LORazepam [Lorazepam] 2 mg PO TID 08/14/19 cloNIDine HCL [Catapres -] 0.3 mg PO BID 08/14/19 Albuterol 2.5/Ipratropium 0.5 [Duoneb -] 1 amp NEB RQID #30 amp 08/25/19 Nebulizer and Compressor [[place] [employer] Nebulizer] 1 each ASDIR #1 each 08/25 Amox-Tr/K Cl [Augmentin 875-125mg Tablet -] 1 tab PO BID@0800,1730 #8 tablet 02/12 predniSONE [Deltasone -] See Taper PO ASDIR #17 tab 09/02/19 This patient is new to me today: No Emergency Visit: No Critical Care patient: No - Discharge Referral Referred to [facility] Med [facility].C[facility] No ATTENDING PHYSICIAN STATEMENT I saw and evaluated the patient. I reviewed the resident's note and discussed the case with the resident. I agree with the resident's findings and plan as documented. SUBJECTIVE: OBJECTIVE: ASSESSMENT AND PLAN:
--- NOTE | 2019-09-02 17:57 | PN ---
Teaching Attending Note Name of Resident: Delfino Watters ATTENDING PHYSICIAN STATEMENT I saw and evaluated the patient. I reviewed the resident's note and discussed the case with the resident. I agree with the resident's findings and plan as documented. SUBJECTIVE: seen around 12 pm No fever or chills. denies SOB at time of evaluation OBJECTIVE: NAD. MMM. no JVD. CV; RRR, no MRG. lungs: no wheezes. good air entry Ext: No edema or erythema . ASSESSMENT AND PLAN: 68 y/o man with h/o HTN, hyperlipidemia, COPD, CAD, atrial fibrillation, BPH, anxiety, h/o TBI, recent admission for PNA and flu who came back with worsening. 1- PNA 2- flu A 3- Acute COPD exacerbation 4- H/o HTN 5- H/o Bipolar Do 6- H/o A fib Plan: - cont steroids taper. after dc - f/u with pulm on R lung nodule. - cont Augmentin day 3 /7 - cont clonidine and Norvasc - not on AC for A fib - cont home lorazepam dc to pulm rehab
== END 2019-09-02 13:15 | DRG 193 ==
LOC: JER 06:15 → JERBED 07:35 → J8W 16:17
PROVIDERS: ADMIT Internal Medicine; ATTEND Internal Medicine
DX: J18.9 Pneumonia, unspecified organism (principal); J96.21 Acute and chronic respiratory failure with hypoxia; J44.1 Chronic obstructive pulmonary disease with (acute) exacerbation; J98.11 Atelectasis; J44.0 Chronic obstructive pulmonary disease with (acute) lower respiratory infection; I48.91 Unspecified atrial fibrillation; I10 Essential (primary) hypertension; Z87.820 Personal history of traumatic brain injury; F31.9 Bipolar disorder, unspecified; D64.9 Anemia, unspecified; Z99.81 Dependence on supplemental oxygen; N40.0 Benign prostatic hyperplasia without lower urinary tract symptoms; F41.9 Anxiety disorder, unspecified; E78.5 Hyperlipidemia, unspecified; Y95 Nosocomial condition; Z87.891 Personal history of nicotine dependence; K76.0 Fatty (change of) liver, not elsewhere classified
CPT/HCPCS: 36415; 36600; 71250-TC; 80048; 80053; 81003; 82803; 83605; 83735; 84100; 84484; 85025; 85027; 85610; 85730; 87040; 87077; 87086; 87899; 94640; 94761; 97116-GP; 97161-GP; 99285-25; J0131; J0735; J7030

== ENCOUNTER 2020-02-14 03:07 | Inpatient (IN) | payer OTHER, MEDICARE ==
[2020-02-14 03:11] VITALS: BMI 28.8
--- NOTE | 2020-02-14 03:11 | PDOC ---
History of Present Illness - General Chief Complaint: Allergic Reaction Stated Complaint: RASH WITH PRURITIS Time Seen by Provider: 02/14/20 03:10 - History of Present Illness Initial Comments: 02/14/20 03:39 This 69-year-old man with a history of HTN/Afib (on Xarelto)/iron deficiency anemia/COPD/GERD/BPH/cataracts presents with low blood count and a pruritic rash. Patient had been called by Dr. Lujan's office late this afternoon because his hemoglobin, tested earlier in the day as preop for cataract surgery, was found to be very low. Patient states that he has had dyspnea on exertion throughout the day. He denies chest pain, shortness of breath, palpitations, lightheadedness. He denies melena/hematochezia. States he has a long history of iron deficiency anemia and has had transfusions in the past. Although he was not told to come to the ER per se, tonight he arrives here because he was unable to sleep secondary to pruritic rash. The patient states that he developed an erythematous rash of bilateral forearms about a week ago; the last few days, he is developed pruritus in the rash and throughout his body. H/H drawn 02/12: 6.7/22.2 Medications as noted below Allergies as noted below Past History - Medical History Allergies/Adverse Reactions: Allergies Allergy/AdvReac Type Severity Reaction Status Date / Time ketorolac [From Toradol] Allergy Verified 12/20/19 13:49 alprazolam [From Xanax] AdvReac Intermediate Verified 12/20/19 13:49 gatifloxacin [From Tequin] AdvReac Intermediate DIARRHEA Verified 12/20/19 13:49 lamotrigine [From Lamictal] AdvReac Intermediate Verified 12/20/19 13:49 quetiapine fumarate AdvReac Intermediate DIZZINESS, Verified 12/20/19 13:49 [From Seroquel] NIGHTMARES zolpidem tartrate AdvReac Mild DEPRESSION, Verified 12/20/19 13:49 [From Ambien] DISORIENTED nickel AdvReac Verified 12/20/19 13:49 trazodone AdvReac Verified 12/20/19 13:49 Home Medications: Ambulatory Orders Amlodipine Besylate [Norvasc -] 10 mg PO DAILY 05/30/12 Budesonide/Formeterol Fumarate [SYMBICORT 80/4.5mcg -] 1 inh PO BID 01/21/19 Tamsulosin HCl [Flomax -] 0.4 mg PO HS cap.er.24h 04/27/19 Simvastatin 40 mg PO DAILY 08/13/19 Doxepin HCl [Sinequan -] 150 mg PO HS 08/14/19 LORazepam [Lorazepam] 2 mg PO TID 08/14/19 cloNIDine HCL [Catapres -] 0.3 mg PO BID 08/14/19 Albuterol 2.5/Ipratropium 0.5 [Duoneb -] 1 amp NEB RQID #30 amp 08/25/19 Nebulizer and Compressor [Balm Choice Nebulizer] 1 each ASDIR #1 each 08/25/19 Rivaroxaban [Xarelto -] 20 mg PO DAILY 10/12/19 Acetaminophen [Tylenol .Regular Strength -] 650 mg PO Q6H PRN tablet 12/14/19 Albuterol Sulfate Inhaler - [Ventolin HFA Inhaler -] 2 puff IH Q4H PRN inhaler 12/14/19 Ascorbic Acid [Vitamin C -] 500 mg PO DAILY tablet 12/14/19 Azithromycin 500 mg PO DAILY #5 tablet 12/14/19 Dextroamphetamine/Amphetamine [Adderall 10 mg Tablet] 30 mg PO DAILY #30 tablet MDD 30mg 12/14/19 Pantoprazole Sodium [Protonix -] 40 mg PO DAILY tablet.ec 12/14/19 predniSONE [Deltasone -] 20 mg PO DAILY #7 tablet 12/14/19 Anemia: Yes Asthma: Yes Cancer: No Cardiac Disorders: Yes (AFIB) CVA: No COPD: Yes CHF: No Dementia: No Diabetes: No GI Disorders: Yes (GERD) Disorders: No HTN: Yes Hypercholesterolemia: Yes Liver Disease: Yes (BPH) Psychiatric Problems: Yes (ADD) Seizures: No Thyroid Disease: No - Surgical History Abdominal Surgery: No Appendectomy: No Cardiac Surgery: No Cholecystectomy: No Lung Surgery: No Neurologic Surgery: No Orthopedic Surgery: Yes (LT SHOULDER SX) - Immunization History Immunization Up to Date: Yes - Psycho-Social/Smoking History Smoking Status: No Smoking History: Unknown if ever smoked Have you smoked in the past 12 months: No Number of Cigarettes Smoked Daily: 0 If you are a former smoker, when did you quit?: [employer] Cigars Per Day: 0 'Breaking Loose' booklet given: 06/07/16 Review of Systems - Review of Systems Able to Perform ROS?: Yes Comments:: 12 point review of systems is negative except for what is noted in the history of present illness *Physical Exam - Physical Exam GENERAL: Adult male, oriented x3, slightly slurred speech; no acute distress HEAD: Normal with no signs of trauma. EYES: PERRLA, EOMI, sclera anicteric, conjunctiva pale. ENT: Ears normal, nares patent, oropharynx clear without exudates. Dry mucous membranes. NECK: Normal range of motion, supple without lymphadenopathy, JVD, or masses. LUNGS: Breath sounds equal, inspiratory crackles at the bases but otherwise clear HEART:Regular rate and rhythm, normal S1 and S2 without murmur, rub or gallop. ABDOMEN:.normal bowel sounds No guarding,tenderness or rebound.No masses No distention. EXTREMITIES: Normal range of motion, no edema. No clubbing or cyanosis. No erythema, or tenderness. NEUROLOGICAL: Cranial nerves II through XII grossly intact. Normal speech. No focal neurological deficits. MUSCULOSKELETAL: Back non-tender to palpation, no CVA tenderness SKIN: Warm, Dry, normal turgor; nonblanching, erythematous macular rash of bilateral dorsal surface of the forearm; no other significant rash seen Twelve-lead electrocardiogram is performed: Normal sinus rhythm 80 bpm; intervals and axis is normal. There is some flattening of the T waves in the lateral leads. This is unchanged from tracing dated 01/20/2020. No other acute ST or T wave abnormalities. No acute cardiac arrhythmia noted ED Treatment Course - LABORATORY CBC & Chemistry Diagram: 02/14/20 03:44 02/14/20 03:44 Medical Decision Making - Medical Decision Making 02/14/20 05:07 This 69-year-old man with a history of multiple medical problems including iron deficiency anemia presents with very low hemoglobin/hematocrit and pruritis. He he had blood drawn yesterday for preop work-up for cataract removal. Besides dyspnea on exertion, patient is also complaining of pruritus and a rash. Patient has very limited rash on exam but significant pruritus. Remainder of exam as noted. EKG is unchanged from previous tracing. Laboratory evaluation notable for hemoglobin of 5.6 and hematocrit 20.2 2 units PRBC ordered Patient complaining of generalized pruritus: Benadryl (25 mg p.o. followed by 25 mg IV) ineffective for relief. Hydroxyzine 25 mg p.o.likewise not helpful for itching. low dose(5mg) parenteral haloperidol was briefly effective Other notable laboratory values INR 1.21; potassium 3.4, BUN 18.7/creatinine 1.0, troponin 0.03 Case discussed with GIBSON Borjas. Patient will be admitted to [facility] service inpatient. 02/14/20 06:33 Patient now resting comfortably awaiting transfusion Discharge - Discharge Information Problems reviewed: Yes Clinical Impression/Diagnosis: Anemia Qualifiers: Anemia type: iron deficiency Iron deficiency anemia type: unspecified iron deficiency Qualified Code(s): D50.9 - Iron deficiency anemia, unspecified Condition: Stable - Admission Yes - Follow up/Referral - Patient Discharge Instructions - Post Discharge Activity
[2020-02-14] MEDS ORDERED: diphenhydrAMINE HCL 25 MG CAPSULE (FP) PO ONE ×2 (04:18)
[2020-02-14 04:29] LABS: EOS % 5.7 % (0-4.5); HEMATOCRIT 20.2 % (35.4-49); LYMPH % 19.6 % (8-40); MCH 20.9 pg (25.7-33.7); MEAN CELL VOLUME 74.6 fl (80-96); MEAN PLT VOLUME 9.4 fl (7.5-11.1); MONO % 7.5 % (3.8-10.2); NEUT % 66.2 % (42.8-82.8); PLATELET COUNT 314 K/MM3 (134-434); RDW 17.4 % (11.9-15.9); WHITE BLOOD COUNT 11.6 K/mm3 (4.0-10.0)
[2020-02-14 04:35] LABS: INR 1.21 (0.83-1.09); PROTHROMBIN TIME (PATIENT) 14.3 SEC (9.7-13.0)
[2020-02-14] MEDS ORDERED: hydrOXYzine PAMOATE 25 MG CAPSULE (FP) PO ONE (04:45)
[2020-02-14 04:46] LABS: HEMOGLOBIN 5.6 GM/dL (11.7-16.9)
[2020-02-14 04:51] LABS: ALBUMIN 2.8 g/dl (3.4-5.0); BILIRUBIN,TOTAL 0.2 mg/dL (0.2-1); BLOOD UREA NITROGEN 18.7 mg/dL (7-18); POTASSIUM 3.4 mmol/L (3.5-5.1); TOT PROT 5.7 g/dl (6.4-8.2)
[2020-02-14] MEDS ORDERED: HALOPERIDOL LACTATE 5 MG/ML ONE (05:03)
[2020-02-14] MEDS ORDERED: HALOPERIDOL LACTATE 5 MG/ML IV ONE (05:04)
[2020-02-14] MEDS ORDERED: ALBUTEROL SO4 HFA INHALER IH PRN (06:07)
[2020-02-14] MEDS ORDERED: POTASSIUM CHLORIDE TABS 20 MEQ TABLET.ER (FP) PO ONE (06:26)
--- NOTE | 2020-02-14 08:45 | HP ---
CHIEF COMPLAINT: Itching for several days PCP: Dr. Lujan Psych: Dr. Seay HISTORY OF PRESENT ILLNESS: This is a 69 year-old male with a PMH significant for HTN, HLD, paroxysmal atrial fibrillation on Xarelto, diastolic heart dysfunction, COPD, recurrent pneunonia, anemia requiring transfusion (09/2019), TBI, and bipolar disorder. Patient presented to the [facility] routine blood testing done in his PCP's office revealed a low Hgb. Patient states he has been fatigued and has been experiencing diffuse body itching for several days. He has a rash on his left arm. He has had headaches and for the past month has been taking two Excedrin twice a day, plus daily baby ASA, plus Tylenol. He denies any bleeding episodes, denies hematuria, hematochezia, hematemesis. He denies fever, sweats, chills. He denies chest pain, shortness of breath, palpitations, lightheadedness. He denies nausea, vomiting, diarrhea, and abdominal pain. ER course was notable for: (1) WBC 11.6k, afebrile (2) Hgb 5.6 (3) K 3.4 (4) occult stool negative Recent Travel: No PAST MEDICAL HISTORY: Hypertension Hyperlipidemia Atrial fibrillation Diastolic heart dysfunction COPD Recurrent pneumonia Anemia Traumatic brain injury Bipolar disorder Narcotic addiction ADD v. 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 Smoking: never Alcohol: denies Drugs: dependent on benzos, adderall Family history: adopted Allergies ketorolac [From Toradol] Allergy (Verified 12/20/19 13:49) GI reactions alprazolam [From Xanax] Adverse Reaction (Intermediate, Verified 12/20/19 13:49) nightmares gatifloxacin [From Tequin] Adverse Reaction (Intermediate, Verified 12/20/19 13:49) DIARRHEA lamotrigine [From Lamictal] Adverse Reaction (Intermediate, Verified 12/20/19 13:49) quetiapine fumarate [From Seroquel] Adverse Reaction (Intermediate, Verified 12/20/19 13:49) DIZZINESS, NIGHTMARES zolpidem tartrate [From Ambien] Adverse Reaction (Mild, Verified 12/20/19 13:49) DEPRESSION, DISORIENTED nickel Adverse Reaction (Verified 12/20/19 13:49) trazodone Adverse Reaction (Verified 12/20/19 13:49) HALLUCINATIONS HOME MEDICATIONS: Home Medications Medication Instructions Recorded Amlodipine Besylate [Norvasc -] 10 mg PO DAILY 12/24/11 Budesonide/Formeterol Fumarate 1 inh PO BID 01/21/19 [SYMBICORT 80/4.5mcg -] Tamsulosin HCl [Flomax -] 0.4 mg PO HS cap.er.24h 04/27/19 Simvastatin 40 mg PO DAILY 08/13/19 Doxepin HCl [Sinequan -] 150 mg PO HS 08/14/19 LORazepam [Lorazepam] 2 mg PO TID 08/14/19 cloNIDine HCL [Catapres -] 0.3 mg PO BID 08/14/19 Albuterol 2.5/Ipratropium 0.5 1 amp NEB RQID #30 amp 08/25/19 [Duoneb -] Nebulizer and Compressor [[place]clave 1 each ASDIR #1 each 08/25/19 Choice Nebulizer] Rivaroxaban [Xarelto -] 20 mg PO DAILY 10/12/19 Acetaminophen [Tylenol .Regular 650 mg PO Q6H PRN tablet 12/14/19 Strength -] Albuterol Sulfate Inhaler - 2 puff IH Q4H PRN inhaler 12/14/19 [Ventolin HFA Inhaler -] Ascorbic Acid [Vitamin C -] 500 mg PO DAILY tablet 12/14/19 Azithromycin 500 mg PO DAILY #5 tablet 12/14/19 Dextroamphetamine/Amphetamine 30 mg PO DAILY #30 tablet MDD 30mg 12/14/19 [Adderall 10 mg Tablet] Pantoprazole Sodium [Protonix -] 40 mg PO DAILY tablet.ec 12/14/19 predniSONE [Deltasone -] 20 mg PO DAILY #7 tablet 12/14/19 REVIEW OF SYSTEMS CONSTITUTIONAL: +fatigue Absent: fever, chills, diaphoresis, generalized weakness, malaise, loss of appetite, weight change HEENT: Absent: rhinorrhea, nasal congestion, throat pain, throat swelling, difficulty swallowing, mouth swelling, ear pain, eye pain, visual changes CARDIOVASCULAR: Absent: chest pain, syncope, palpitations, irregular heart rate, lightheadedness, peripheral edema RESPIRATORY: Absent: cough, shortness of breath, dyspnea with exertion, orthopnea, wheezing, stridor, hemoptysis GASTROINTESTINAL: Absent: abdominal pain, abdominal distension, nausea, vomiting, diarrhea, constipation, melena, hematochezia GENITOURINARY: Absent: dysuria, frequency, urgency, hesitancy, hematuria, flank pain, genital pain MUSCULOSKELETAL: Absent: myalgia, arthralgia, joint swelling, back pain, neck pain SKIN: +pruritis, left arm rash Absent: rash, itching, pallor HEMATOLOGIC/IMMUNOLOGIC: Absent: easy bleeding, easy bruising, lymphadenopathy, frequent infections ENDOCRINE: Absent: unexplained weight gain, unexplained weight loss, heat intolerance, cold intolerance NEUROLOGIC: +headache Absent: focal weakness or paresthesias, dizziness, unsteady gait, seizure, mental status changes, bladder or bowel incontinence PSYCHIATRIC: Absent: anxiety, depression, suicidal or homicidal ideation, hallucinations. PHYSICAL EXAMINATION Vital Signs - 24 hr 02/14/20 02/14/20 03:08 07:35 Temperature 98.1 F 97.6 F Pulse Rate 97 H Pulse Rate [ 67 Left] Respiratory 24 H 20 Rate Blood Pressure 139/71 Blood Pressure 103/65 [Left Arm] O2 Sat by Pulse 98 95 Oximetry (%) GENERAL: Awake, alert, and fully oriented. Appears mildly sedated, speech is deliberate, slow. HEAD: Normal with no signs of trauma. EYES: Pupils equal, round and reactive to light, extraocular movements intact; icteric sclera EARS, NOSE, THROAT: Ears normal, nares patent, oropharynx clear without exudates. Moist mucous membranes. NECK: Normal range of motion, supple without lymphadenopathy, JVD, or masses. LUNGS: Right basilar crackles HEART: Regular rate and rhythm, normal S1 and S2 +murmur ABDOMEN: Soft, nontender, not distended, normoactive bowel sounds, no guarding, no rebound MUSCULOSKELETAL: Normal range of motion at all joints. No bony deformities or tenderness. No CVA tenderness. UPPER EXTREMITIES: 2+ pulses, warm, well-perfused. No cyanosis. No clubbing. No peripheral edema. LOWER EXTREMITIES: 2+ pulses, warm, well-perfused. No calf tenderness. 1+b/l edema; left lower leg calf tenderness NEUROLOGICAL: Cranial nerves II-XII intact. Normal speech. Self-positions easily PSYCHIATRIC: Cooperative. SKIN: Mild jaundiced appearance, erythematous rash left forearm; patient scratching upper body Laboratory Results - last 24 hr 02/14/20 02/14/20 02/14/20 03:44 03:44 03:44 WBC 11.6 H RBC 2.70 L Hgb 5.6 L* Hct 20.2 L D MCV 74.6 L MCH 20.9 L D MCHC 28.0 L RDW 17.4 H Plt Count 314 MPV 9.4 Absolute Neuts (auto) 7.7 Neutrophils % 66.2 Lymphocytes % 19.6 D Monocytes % 7.5 Eosinophils % 5.7 H D Basophils % 1.0 D Nucleated RBC % 0 PT with INR 14.30 H INR 1.21 H Sodium 143 Potassium 3.4 L Chloride 112 H Carbon Dioxide 23 Anion Gap 8 BUN 18.7 H Creatinine 1.0 Est GFR (CKD-EPI)AfAm 87.99 Est GFR (CKD-EPI)NonAf 75.92 Random Glucose 126 H Calcium 8.0 L Total Bilirubin 0.2 AST 32 ALT 27 Alkaline Phosphatase 64 Creatine Kinase 136 Troponin I 0.03 Total Protein 5.7 L Albumin 2.8 L Stool Occult Blood Blood Type Antibody Screen Crossmatch 02/14/20 02/14/20 03:44 06:53 WBC RBC Hgb Hct MCV MCH MCHC RDW Plt Count MPV Absolute Neuts (auto) Neutrophils % Lymphocytes % Monocytes % Eosinophils % Basophils % Nucleated RBC % PT with INR INR Sodium Potassium Chloride Carbon Dioxide Anion Gap BUN Creatinine Est GFR (CKD-EPI)AfAm Est GFR (CKD-EPI)NonAf Random Glucose Calcium Total Bilirubin AST ALT Alkaline Phosphatase Creatine Kinase Troponin I Total Protein Albumin Stool Occult Blood Negative Blood Type B POSITIVE Antibody Screen Negative Crossmatch See Detail ASSESSMENT/PLAN: This is a 69 year-old male with a PMH significant for HTN, HLD, paroxysmal atrial fibrillation on Xarelto, diastolic heart dysfunction, COPD, recurrent pneunonia, microcytic anemia requiring transfusion (09/2019), TBI, bipolar disorder, and narcotic addiction. Admitted for acute blood loss anemia. Acute blood loss anemia in setting of anti-coagulant and NSAID medications --on Xarelto, high-doses of Excedrin, daily ASA; stop all --Hgb 5.6 on admission, transfusing 2U PRBC with Lasix in between --previous hospital admission July 2019 for Hgb 5.5, transfused 3U PRBC, and recommended for GI outpatient follow up which patient did not do --occult stool negative --Last EGD 2015, last colon November 2011 --GI consult placed --protonix PO ([place] high-risk med age 65+ but indicated here) Jaundice Pruritis --CTAP, lipase, lipid profile, acute hepatitis panel --hold benadryl for over sedation; topical hydrocortisone Paroxysmal atrial fibrillation --presently in sinus rhythm, rate is controlled, continue amlodipine --hold Xarelto due to bleeding --cardiology consult requested Diastolic heart dysfunction --08/16/19 Echo: LV normal, EF 55%, Grade I diastolic dysfunction; RV normal; trace MR --some pulmonary congestion seen on CXR, 1+ bilateral lower extremity edema, and weight up 9kg since September --CT chest --Lasix IV 40mg daily --daily weights LLE calf pain --US to r/o DVT Hypokalemia --repleted Hypertension --continue amlodipine, clonidine Hyperlipidemia --continue Lipitor COPD Recurrent pneumonia --afebrile, mild leukocytosis --continue Symbicort, albuterol MDI PRN, prednisone daily Traumatic brain injury Bipolar disorder --episode of acute danette during previous hospitalization 03/2019 --calm, cooperative at present --continue doxepin --continue Abilify, adderall, lorazepam (meds and dosages confirmed with pharmacy) ISTOP Patient Name: Fareed Cowart Date: 1950 Address: [address] [place] [address] Sex: Male Rx Written Rx Dispensed Drug Quantity Days Supply Prescriber Name Payment Method Dispenser 10/21/2019 11/02/2019 adderall xr 20 mg capsule 30 30 Dario, Michele Insurance [facility] 10/21/2019 11/02/2019 lorazepam 2 mg tablet 180 30 Yotpo [facility] 03/11/2019 03/22/2019 dextroamp-amphetamin 30 mg tab 90 30 Wilfredo Davidson MD Medicare [facility] FEN Fluids: PO intake adequate Electrolytes: replete as indicated Nutrition: low sodium DVT prophylaxis: SCDs Physical therapy Dispo: continues to require inpatient care. Full code. ; Visit type - Medication Review Med list reviewed for High Risk Meds patients 65 and older: Yes - Emergency Visit Emergency Visit: Yes ED Registration Date: 02/14/20 Care time: The patient presented to the Emergency Department on the above date and was hospitalized for further evaluation of their emergent condition. - New Patient This patient is new to me today: Yes Date on this admission: 02/14/20 - Critical Care Critical Care patient: No
[2020-02-14] MEDS ORDERED: predniSONE 20 MG TABLET (UD) PO SCH (10:00)
[2020-02-14] MEDS ORDERED: RIVAROXABAN 20 MG TABLET PO SCH (10:00)
[2020-02-14] MEDS ORDERED: PATIENT'S OWN MEDICATION (NON-FORMULARY) (Simvastatin [Simvastatin] 40 MG) PO SCH (10:00)
[2020-02-14] MEDS: cloNIDine HCL 0.1 MG TABLET PO SCH ×2 (10:05→21:34)
[2020-02-14] MEDS: BUDESONIDE/FORMETEROL FUMARATE 80/4.5 mcg INHALER IH SCH ×2 (10:05→21:35)
[2020-02-14] MEDS: amLODIPine BESYLATE 10 MG TABLET (FP) PO SCH (10:05)
--- NOTE | 2020-02-14 12:04 | EKG ---
Test Reason : Blood Pressure : / mmHG Vent. Rate : 080 BPM Atrial Rate : 080 BPM P-R Int : 116 ms QRS Dur : 084 ms QT Int : 396 ms P-R-T Axes : 018 -13 029 degrees QTc Int : 456 ms NORMAL SINUS RHYTHM NONSPECIFIC ST ABNORMALITY ABNORMAL ECG Confirmed by Mitesh Bradley MD ([id number]) on 02/14/2020 12:03:53 PM Referred By: SANTO MURRAY Confirmed By:Mitesh Bradley MD
[2020-02-14] MEDS ORDERED: FUROSEMIDE 40 MG/4 ML INJECTABLE VIAL IVPUSH ONE (13:45)
[2020-02-14] MEDS ORDERED: PT OWN MED DRAWER 7, Y5N ONE (14:18)
[2020-02-14] MEDS: HYDROCORTISONE 0.5% TOPICAL CREAM 30 GM TUBE TP SCH (14:31)
[2020-02-14] MEDS: LORazepam 1 MG TABLET PO SCH ×2 (16:22→21:33)
[2020-02-14] MEDS: ARIPiprazole 2 MG TABLET PO SCH (16:22)
[2020-02-14 20:04] LABS: HEMOGLOBIN 8.2 GM/dl (11.7-16.9); MCH 23.5 pg (25.7-33.7); MCHC 30.3 g/dl (32.0-35.9); MEAN CELL VOLUME 77.6 fl (80-96); MEAN PLT VOLUME 8.9 fl (7.5-11.1); PLATELET COUNT 319 K/MM3 (134-434); RBC 3.48 M/mm3 (4.00-5.60); RDW 17.6 % (11.9-15.9)
[2020-02-14 20:18] LABS: CHOLESTEROL 115 mg/dl (50-200); HDL CHOLESTEROL 49 mg/dl (40-60); LDL CHOLESTEROL (ONLY DFH) 49 mg/dl (5-100); TRIGLYCERIDES 87 mg/dl (0-150)
[2020-02-14] MEDS: ATORVASTATIN CA 20 MG TABLET (FP) PO SCH (21:34)
[2020-02-14] MEDS: TAMSULOSIN HCL 0.4 MG CAP PO SCH (21:34)
[2020-02-14] MEDS: DOXEPIN HCL 25 MG CAPSULE PO SCH (21:35)
[2020-02-14] MEDS ORDERED: AZITHROMYCIN IVPB 500 MG/250 ML BAG IVPB ONE (22:00)
[2020-02-14] MEDS ORDERED: guaiFENesin/D-METHORPHAN HB 10 ML UNIT-DOSE CUPS PO STA (22:23)
[2020-02-14] MEDS ORDERED: cefTRIAXone SODIUM 1 GM VIAL ONE (22:25)
[2020-02-14] MEDS ORDERED: DEXTROSE 5%-WATER - 50 ML IVPB ONE (22:25)
[2020-02-14] MEDS: CEFTRIAXONE 1 GM in DEXTROSE 5%-WATER - 50 ML IVPB SCH (22:27)
[2020-02-14] MEDS ORDERED: ACETAMINOPHEN 325 MG TABLET (FP) PO ONE (22:42)
[2020-02-14] MEDS ORDERED: guaiFENesin 200 MG/10 ML 10 ML UNIT-DOSE CUPS PO ONE (22:50)
[2020-02-14 22:54] LABS: WHITE BLOOD COUNT 12.1 K/mm3 (4.0-10.8)
[2020-02-15] MEDS: LORazepam 1 MG TABLET PO SCH ×3 (07:14→21:10)
[2020-02-15 08:32] LABS: BASO % 0.5 % (0-2.0); EOS % 1.9 % (0-4.5); HEMATOCRIT 25.1 % (35.4-49); HEMOGLOBIN 7.7 GM/dl (11.7-16.9); LYMPH % 19.4 % (8-40); MCH 23.2 pg (25.7-33.7); MCHC 30.6 g/dl (32.0-35.9); MEAN CELL VOLUME 75.7 fl (80-96); MEAN PLT VOLUME 9.3 fl (7.5-11.1); MONO % 6.5 % (3.8-10.2); NEUT % 71.7 % (42.8-82.8); PLATELET COUNT 324 K/MM3 (134-434); RBC 3.32 M/mm3 (4.00-5.60); RDW 17.4 % (11.9-15.9); WHITE BLOOD COUNT 12.7 K/mm3 (4.0-10.8)
[2020-02-15 08:36] LABS: ALBUMIN 2.7 g/dl (3.4-5.0); ALK PHOS 39 U/L (45-117); ANION GAP 8 MMOL/L (8-16); BILIRUBIN,TOTAL 0.4 mg/dl (0.2-1); CALCIUM 8.1 mg/dl (8.5-10); CHLORIDE 108 mmol/L (98-107); CO2 22 mmol/L (21-32); CREATININE 0.8 mg/dl (0.55-1.3); GLUCOSE,RANDOM 106 mg/dl (74-106); MAGNESIUM 2.1 mg/dL (1.8-2.4); POTASSIUM 3.6 mmol/L (3.5-5.1); SGOT/AST 27 U/L (15-37); SGPT/ALT 23 U/L (13-61); SODIUM 138 mmol/L (136-145)
[2020-02-15 08:46] LABS: BILIRUBIN,DIRECT < 0.2 mg/dL (0.0-0.2)
[2020-02-15] MEDS ORDERED: DEXTROSE 5%-WATER - 50 ML IVPB ONE (09:40)
[2020-02-15] MEDS ORDERED: cefTRIAXone SODIUM 1 GM VIAL ONE (09:40)
[2020-02-15] MEDS: CEFTRIAXONE 1 GM in DEXTROSE 5%-WATER - 50 ML IVPB SCH (09:47)
[2020-02-15] MEDS: cloNIDine HCL 0.1 MG TABLET PO SCH ×3 (09:48→21:24)
[2020-02-15] MEDS: amLODIPine BESYLATE 10 MG TABLET (FP) PO SCH (09:48)
[2020-02-15] MEDS: ARIPiprazole 2 MG TABLET PO SCH (09:48)
[2020-02-15] MEDS: BUDESONIDE/FORMETEROL FUMARATE 80/4.5 mcg INHALER IH SCH ×2 (09:49→21:11)
[2020-02-15] MEDS: HYDROCORTISONE 0.5% TOPICAL CREAM 30 GM TUBE TP SCH (09:49)
[2020-02-15] MEDS ORDERED: PATIENT'S OWN MEDICATION (NON-FORMULARY) (Dextroamphetamine/Amphetamine [Adderall 10 Mg Ta PO SCH (10:00)
[2020-02-15] MEDS ORDERED: FUROSEMIDE 40 MG/4 ML INJECTABLE VIAL IVPUSH SCH (10:00)
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
--- NOTE | 2020-02-15 13:08 | PN ---
Progress Note (short form) - Note Progress Note: Patient seen and consult dictated. 69 yo male with microcytic anemia ?iron deficiency - likely due to occult GI blood loss. Has been on ASA, NSAIDs and Xarelto. no abdominal c/o, melena or BRBPR. No recent GI endoscopy (although EGD/colon was recommended several months ago). Now s/p PRBC transfusions with Hct 25%. Patient agreeable to EGD but refusing colonoscopy. Will arrange for EGD in am
[2020-02-15] MEDS: AZITHROMYCIN IVPB 250 MG in DEXTROSE 5%-WATER - 250 ML IVPB SCH (15:30)
--- NOTE | 2020-02-15 16:55 | PN ---
Physical Exam: SUBJECTIVE: Patient seen and examined. Pruritis has resolved. OBJECTIVE: Vital Signs Period Temp Pulse Resp BP Sys/Walter Pulse Ox Last 24 Hr 97.6 F-99.0 F 65-85 16-18 101-126/48-62 96-99 GENERAL: The patient is awake, alert, and fully oriented, in no acute distress. HEAD: Normal with no signs of trauma. EYES: PERRL, extraocular movements intact, sclera anicteric, conjunctiva clear. No ptosis. ENT: Ears normal, nares patent, oropharynx clear without exudates, moist mucous membranes. NECK: Trachea midline, full range of motion, supple. LUNGS: Breath sounds equal, clear to auscultation bilaterally, no wheezes, no crackles, no accessory muscle use. HEART: Regular rate and rhythm, S1, S2 without murmur, rub or gallop. ABDOMEN: Soft, nontender, nondistended, normoactive bowel sounds, no guarding, no rebound, no hepatosplenomegaly, no masses. EXTREMITIES: 2+ pulses, warm, well-perfused, no edema. NEUROLOGICAL: Cranial nerves II through XII grossly intact. Normal speech, gait not observed. PSYCH: Normal mood, normal affect. SKIN: Warm, dry, normal turgor, no rashes or lesions noted Laboratory Results - last 24 hr 02/14/20 02/14/20 02/14/20 17:53 17:53 19:30 WBC RBC Hgb Hct MCV MCH MCHC RDW Plt Count MPV Absolute Neuts (auto) Neutrophils % Lymphocytes % Monocytes % Eosinophils % Basophils % Retic Count Sodium Potassium Chloride Carbon Dioxide Anion Gap BUN Creatinine Est GFR (CKD-EPI)AfAm Est GFR (CKD-EPI)NonAf POC Glucometer Random Glucose Calcium Magnesium Iron TIBC Iron Saturation Unsaturated IBC Ferritin Total Bilirubin Direct Bilirubin AST ALT Alkaline Phosphatase LD Total Total Protein Albumin Triglycerides 87 Cholesterol 115 Total LDL Cholesterol 49 HDL Cholesterol 49 Lipase 151 Vitamin B12 Hep A IgM Ab Confirm Negative Hep Bs Antigen Negative Hep B Core IgM Ab Negative Hepatitis C Ab (EIA) <0.1 02/14/20 02/14/20 02/14/20 19:30 19:30 19:30 WBC 12.1 H RBC 3.48 L Hgb 8.2 L Hct 27.0 L D MCV 77.6 L MCH 23.5 L MCHC 30.3 L RDW 17.6 H Plt Count 319 D MPV 8.9 Absolute Neuts (auto) Neutrophils % Lymphocytes % Monocytes % Eosinophils % Basophils % Retic Count 4.27 H D Sodium Potassium Chloride Carbon Dioxide Anion Gap BUN Creatinine Est GFR (CKD-EPI)AfAm Est GFR (CKD-EPI)NonAf POC Glucometer Random Glucose Calcium Magnesium Iron TIBC Iron Saturation Unsaturated IBC Ferritin Total Bilirubin Direct Bilirubin AST ALT Alkaline Phosphatase LD Total 174 Total Protein Albumin Triglycerides Cholesterol Total LDL Cholesterol HDL Cholesterol Lipase Vitamin B12 Hep A IgM Ab Confirm Hep Bs Antigen Hep B Core IgM Ab Hepatitis C Ab (EIA) 02/14/20 02/15/20 02/15/20 21:47 07:38 07:38 WBC 12.7 H RBC 3.32 L Hgb 7.7 L Hct 25.1 L MCV 75.7 L MCH 23.2 L MCHC 30.6 L RDW 17.4 H Plt Count 324 MPV 9.3 Absolute Neuts (auto) 9.1 Neutrophils % 71.7 Lymphocytes % 19.4 D Monocytes % 6.5 Eosinophils % 1.9 Basophils % 0.5 Retic Count Sodium 138 Potassium 3.6 Chloride 108 H Carbon Dioxide 22 Anion Gap 8 BUN 15.0 Creatinine 0.8 Est GFR (CKD-EPI)AfAm 104.90 Est GFR (CKD-EPI)NonAf 90.51 POC Glucometer 296 Random Glucose 106 Calcium 8.1 L Magnesium 2.1 Iron TIBC Iron Saturation Unsaturated IBC Ferritin Total Bilirubin 0.4 Direct Bilirubin < 0.2 AST 27 ALT 23 Alkaline Phosphatase 39 L LD Total Total Protein 5.0 L Albumin 2.7 L Triglycerides Cholesterol Total LDL Cholesterol HDL Cholesterol Lipase Vitamin B12 Hep A IgM Ab Confirm Hep Bs Antigen Hep B Core IgM Ab Hepatitis C Ab (EIA) 02/15/20 12:00 WBC RBC Hgb Hct MCV MCH MCHC RDW Plt Count MPV Absolute Neuts (auto) Neutrophils % Lymphocytes % Monocytes % Eosinophils % Basophils % Retic Count Sodium Potassium Chloride Carbon Dioxide Anion Gap BUN Creatinine Est GFR (CKD-EPI)AfAm Est GFR (CKD-EPI)NonAf POC Glucometer Random Glucose Calcium Magnesium Iron 9 L TIBC 306 Iron Saturation 2 L Unsaturated IBC 297 H Ferritin 21.9 Total Bilirubin Direct Bilirubin AST ALT Alkaline Phosphatase LD Total Total Protein Albumin Triglycerides Cholesterol Total LDL Cholesterol HDL Cholesterol Lipase Vitamin B12 793 Hep A IgM Ab Confirm Hep Bs Antigen Hep B Core IgM Ab Hepatitis C Ab (EIA) Active Medications Generic Name Dose Route Start Last Admin Trade Name Freq PRN Reason Stop Dose Admin Albuterol Sulfate 2 puff 02/14/20 06:07 Ventolin Hfa Inhaler - IH Q6H PRN SHORT OF BREATH/WHEEZING Amlodipine Besylate 10 mg 02/14/20 10:00 02/15/20 09:48 Norvasc - PO 10 mg DAILY CHUCK Administration Aripiprazole 2 mg 02/14/20 15:45 02/15/20 09:48 Abilify PO 2 mg DAILY CHUCK Administration Atorvastatin Calcium 20 mg 02/14/20 22:00 02/14/20 21:34 Lipitor - PO 20 mg HS CHUCK Administration Budesonide/Formoterol Fumarate 1 puff 02/14/20 10:00 02/15/20 09:49 Symbicort 80/4.5mcg - IH 1 puff BID CHUCK Administration Clonidine 0.3 mg 02/14/20 10:00 02/15/20 09:48 Catapres - PO 0.3 mg BID CHUCK Administration Doxepin HCl 150 mg 02/14/20 22:00 02/14/20 21:35 Sinequan - PO 150 mg HS CHUCK Administration Hydrocortisone 1 applic 02/14/20 13:45 02/15/20 09:49 Hytone 0.5% Cream - TP 1 applic DAILY CHUCK Administration Ceftriaxone Sodium 1 gm/ 50 mls @ 100 mls/hr 02/14/20 22:00 02/15/20 09:47 Dextrose IVPB 100 mls/hr DAILY CHUCK Administration Protocol Azithromycin 250 mg/ Dextrose 250 mls @ 250 mls/hr 02/15/20 15:00 IVPB 02/18/20 10:59 DAILY CHUCK Lorazepam 4 mg 02/14/20 15:45 02/15/20 07:14 Ativan - PO Not Given TID CHUCK Non-Formulary Medication 20 mg 02/15/20 10:00 Dextroamphetamine/Amphetamine [Adderall 10 Mg Tablet] PO DAILY CHUCK Tamsulosin HCl 0.4 mg 02/14/20 22:00 02/14/20 21:34 Flomax - PO 0.4 mg HS CHUCK Administration ASSESSMENT/PLAN: This is a 69 year-old male with a PMH significant for HTN, HLD, paroxysmal atria l fibrillation on Xarelto, diastolic heart dysfunction, COPD, recurrent pneunonia, microcytic anemia requiring transfusion (09/2019), TBI, bipolar disorder, and narcotic addiction. Admitted for acute blood loss anemia. Acute blood loss anemia in setting of anti-coagulant and NSAID medications --had been on Xarelto, high-doses of Excedrin, daily ASA; stop all --Hgb 5.6 on admission, transfused 2U -->Hgb 8.5, stable --seen and evaluated by GI, agrees to EGD, not to colonoscopy; EGD when COVID comes back --continue protonix Jaundice Pruritis --prurutis has resolved following transfusion, just some mild itching on left forearm, apply cortisone cream --no longer jaundice appearing; labs do not suggest hemolysis Paroxysmal atrial fibrillation --presently in sinus rhythm, rate is controlled, continue amlodipine --hold Xarelto due to bleeding --cardiology following Community acquired pneumonia Chronic COPD --likely aspiration event as patient takes high dose benzos, spends most of day lying in bed --ceftriaxone (day #2); azithro (day #2) --continue Symbicort, albuterol MDI PRN; correction from yesterday: does not take prednisone daily, checked with pharmacy Diastolic heart dysfunction --08/16/19 Echo: LV normal, EF 55%, Grade I diastolic dysfunction; RV normal; trace MR --some pulmonary congestion seen on CXR, 1+ bilateral lower extremity edema --Lasix PRN LLE calf pain --US negative for DVT Hypertension --continue amlodipine, clonidine Hyperlipidemia --continue Lipitor Traumatic brain injury Bipolar disorder --episode of acute danette during previous hospitalization 03/2019 --calm, cooperative at present --continue doxepin --continue Abilify, adderall, lorazepam (meds and dosages confirmed with pharmacy) FEN Fluids: PO intake adequate Electrolytes: replete as indicated Nutrition: low sodium DVT prophylaxis: SCDs Physical therapy Dispo: continues to require inpatient care. Full code. Visit type - Emergency Visit Emergency Visit: Yes ED Registration Date: 02/14/20 Care time: The patient presented to the Emergency Department on the above date and was hospitalized for further evaluation of their emergent condition. - New Patient This patient is new to me today: No - Critical Care Critical Care patient: No - Medication Review Med list reviewed for High Risk Meds patients 65 and older: Yes (aware of high- risk meds, medically indicated for this patient)
[2020-02-15 17:51] LABS: HEMATOCRIT 26.6 % (35.4-49); HEMOGLOBIN 8.3 GM/dl (11.7-16.9); MCH 23.8 pg (25.7-33.7); MEAN CELL VOLUME 76.5 fl (80-96); MEAN PLT VOLUME 9.1 fl (7.5-11.1); PLATELET COUNT 302 K/MM3 (134-434); RBC 3.48 M/mm3 (4.00-5.60); RDW 18.2 % (11.9-15.9); WHITE BLOOD COUNT 12.3 K/mm3 (4.0-10.8)
[2020-02-15] MEDS: TAMSULOSIN HCL 0.4 MG CAP PO SCH ×2 (21:11→21:23)
[2020-02-15] MEDS: DOXEPIN HCL 25 MG CAPSULE PO SCH (21:11)
[2020-02-15] MEDS: ATORVASTATIN CA 20 MG TABLET (FP) PO SCH (21:11)
[2020-02-16] MEDS ORDERED: FAMOTIDINE 20 MG/50 ML IVPB 20 MG/50 ML MG IVPB ONE (01:35)
[2020-02-16] MEDS: LORazepam 1 MG TABLET PO SCH ×4 (06:34→21:36)
[2020-02-16 08:06] LABS: BASO % 0.8 % (0-2.0); EOS % 6.5 % (0-4.5); HEMATOCRIT 26.8 % (35.4-49); HEMOGLOBIN 8.1 GM/dl (11.7-16.9); LYMPH % 21.7 % (8-40); MCHC 30.3 g/dl (32.0-35.9); MEAN CELL VOLUME 75.9 fl (80-96); MEAN PLT VOLUME 8.8 fl (7.5-11.1); MONO % 6.7 % (3.8-10.2); NEUT % 64.3 % (42.8-82.8); PLATELET COUNT 334 K/MM3 (134-434); RBC 3.53 M/mm3 (4.00-5.60); RDW 18.4 % (11.9-15.9); WHITE BLOOD COUNT 9.7 K/mm3 (4.0-10.8)
[2020-02-16 08:11] LABS: ALBUMIN 2.7 g/dl (3.4-5.0); ALK PHOS 43 U/L (45-117); ANION GAP 10 MMOL/L (8-16); BILIRUBIN,TOTAL 0.4 mg/dl (0.2-1); CHLORIDE 105 mmol/L (98-107); CO2 23 mmol/L (21-32); CREATININE 0.8 mg/dl (0.55-1.3); GLUCOSE,RANDOM 99 mg/dl (74-106); MAGNESIUM 2.1 mg/dL (1.8-2.4); POTASSIUM 3.8 mmol/L (3.5-5.1); SGOT/AST 27 U/L (15-37); SGPT/ALT 27 U/L (13-61); SODIUM 138 mmol/L (136-145); TOT PROT 5.2 g/dl (6.4-8.2)
[2020-02-16 08:15] LABS: BILIRUBIN,DIRECT < 0.2 mg/dL (0.0-0.2)
--- NOTE | 2020-02-16 08:38 | PN ---
Progress Note (short form) - Note Progress Note: Patient resting in bed. EGD cancelled for today - Covid test results pending (will reschedule for tomorrow). Patient still reluctant to allow colonoscopy. Labs show low iron studies ??occult GI blood loss. Abdomen soft +BS nontender For EGD tomorrow pm if Covid test negative. Would begin on iron supplements Monitor CBC If EGD negative, would again try to convince patient to allow colonoscopy.
[2020-02-16 09:00] LABS: ADD RBC MORPHOLOGY YES
[2020-02-16] MEDS ORDERED: cefTRIAXone SODIUM 1 GM VIAL ONE (09:06)
[2020-02-16] MEDS ORDERED: DEXTROSE 5%-WATER - 50 ML IVPB ONE (09:07)
[2020-02-16] MEDS ORDERED: PT OWN MED DRAWER 7, Y5N ONE (09:08)
[2020-02-16] MEDS ORDERED: REFRIGERATED ANITBIOTICS ONE (09:09)
[2020-02-16] MEDS: ARIPiprazole 2 MG TABLET PO SCH (09:31)
[2020-02-16] MEDS: FERROUS SO4 325 MG TABLET (FP) PO SCH ×2 (09:32→21:38)
[2020-02-16] MEDS: CEFTRIAXONE 1 GM in DEXTROSE 5%-WATER - 50 ML IVPB SCH (09:32)
[2020-02-16] MEDS: BUDESONIDE/FORMETEROL FUMARATE 80/4.5 mcg INHALER IH SCH ×2 (09:33→21:41)
[2020-02-16] MEDS: HYDROCORTISONE 0.5% TOPICAL CREAM 30 GM TUBE TP SCH (09:34)
[2020-02-16] MEDS: cloNIDine HCL 0.1 MG TABLET PO SCH ×2 (10:00→21:37)
[2020-02-16] MEDS: AZITHROMYCIN IVPB 250 MG in DEXTROSE 5%-WATER - 250 ML IVPB SCH (10:40)
[2020-02-16] MEDS: amLODIPine BESYLATE 10 MG TABLET (FP) PO SCH (10:52)
--- NOTE | 2020-02-16 12:00 | PN ---
Physical Exam: SUBJECTIVE: Patient seen and examined at bedside. Itchiness on left arm persists, no other pruritis. Has had two loose BMs over past 20 minutes de scribed as black. OBJECTIVE: Vital Signs Period Temp Pulse Resp BP Sys/Walter Pulse Ox Last 24 Hr 98.2 F-99.0 F 65-85 18-20 101-118/51-59 92-96 GENERAL: Awake, alert, and fully oriented. LUNGS: CTA HEART: Regular rate and rhythm, normal S1 and S2 +murmur ABDOMEN: Soft, nontender, not distended UPPER EXTREMITIES: 2+ pulses, warm, well-perfused. No cyanosis. No clubbing. No peripheral edema. Several small areas of excoriation LOWER EXTREMITIES: 2+ pulses, warm, well-perfused. No calf tenderness. Trace bilateral edema NEUROLOGICAL: Cranial nerves II-XII intact. Normal speech. Self-positions easily PSYCHIATRIC: Irritable Laboratory Results - last 24 hr 02/15/20 02/15/20 02/15/20 12:00 12:00 17:30 WBC 12.3 H RBC 3.48 L Hgb 8.3 L Hct 26.6 L MCV 76.5 L MCH 23.8 L MCHC 31.0 L RDW 18.2 H Plt Count 302 MPV 9.1 Absolute Neuts (auto) Neutrophils % Lymphocytes % Monocytes % Eosinophils % Basophils % Sodium Potassium Chloride Carbon Dioxide Anion Gap BUN Creatinine Est GFR (CKD-EPI)AfAm Est GFR (CKD-EPI)NonAf Random Glucose Calcium Magnesium Iron 9 L TIBC 306 Iron Saturation 2 L Unsaturated IBC 297 H Transferrin 298 Ferritin 21.9 Total Bilirubin Direct Bilirubin AST ALT Alkaline Phosphatase Total Protein Albumin Vitamin B12 793 02/16/20 02/16/20 07:20 07:20 WBC 9.7 RBC 3.53 L Hgb 8.1 L Hct 26.8 L MCV 75.9 L MCH 23.0 L MCHC 30.3 L RDW 18.4 H Plt Count 334 MPV 8.8 Absolute Neuts (auto) 6.3 Neutrophils % 64.3 Lymphocytes % 21.7 Monocytes % 6.7 Eosinophils % 6.5 H D Basophils % 0.8 Sodium 138 Potassium 3.8 Chloride 105 Carbon Dioxide 23 Anion Gap 10 BUN 14.0 Creatinine 0.8 Est GFR (CKD-EPI)AfAm 104.90 Est GFR (CKD-EPI)NonAf 90.51 Random Glucose 99 Calcium 8.0 L Magnesium 2.1 Iron TIBC Iron Saturation Unsaturated IBC Transferrin Ferritin Total Bilirubin 0.4 Direct Bilirubin < 0.2 AST 27 ALT 27 Alkaline Phosphatase 43 L Total Protein 5.2 L Albumin 2.7 L Vitamin B12 Active Medications Generic Name Dose Route Start Last Admin Trade Name Freq PRN Reason Stop Dose Admin Albuterol Sulfate 2 puff 02/14/20 06:07 Ventolin Hfa Inhaler - IH Q6H PRN SHORT OF BREATH/WHEEZING Amlodipine Besylate 10 mg 02/14/20 10:00 02/16/20 10:52 Norvasc - PO 10 mg DAILY CHUCK Administration Aripiprazole 2 mg 02/14/20 15:45 02/16/20 09:31 Abilify PO 2 mg DAILY CHUCK Administration Atorvastatin Calcium 20 mg 02/14/20 22:00 02/15/20 21:11 Lipitor - PO 20 mg HS CHUCK Administration Budesonide/Formoterol Fumarate 1 puff 02/14/20 10:00 02/16/20 09:33 Symbicort 80/4.5mcg - IH 1 puff BID CHUCK Administration Clonidine 0.3 mg 02/14/20 10:00 02/15/20 21:24 Catapres - PO Not Given BID CHUCK Doxepin HCl 150 mg 02/14/20 22:00 02/15/20 21:11 Sinequan - PO 150 mg HS CHUCK Administration Ferrous Sulfate 325 mg 02/16/20 10:00 02/16/20 09:32 Feosol - PO 325 mg BID CHUCK Administration Hydrocortisone 1 applic 02/14/20 13:45 02/16/20 09:34 Hytone 0.5% Cream - TP 1 applic DAILY CHUCK Administration Ceftriaxone Sodium 1 gm/ 50 mls @ 100 mls/hr 02/14/20 22:00 02/16/20 09:32 Dextrose IVPB 100 mls/hr DAILY CHUCK Administration Protocol Azithromycin 250 mg/ Dextrose 250 mls @ 250 mls/hr 02/15/20 15:00 02/16/20 10:40 IVPB 02/18/20 10:59 250 mls/hr DAILY CHUCK Administration Lorazepam 4 mg 02/14/20 15:45 02/16/20 09:33 Ativan - PO 4 mg TID CHUCK Administration Non-Formulary Medication 20 mg 02/15/20 10:00 Dextroamphetamine/Amphetamine [Adderall 10 Mg Tablet] PO DAILY CHUCK Senna/Docusate Sodium 2 tablet 02/16/20 22:00 Pericolace - PO HS PRN CONSTIPATION Tamsulosin HCl 0.4 mg 02/14/20 22:00 02/15/20 21:23 Flomax - PO Not Given HS [facility] ASSESSMENT/PLAN This is a 69 year-old male with a PMH significant for HTN, HLD, paroxysmal atrial fibrillation on Xarelto, diastolic heart dysfunction, COPD, recurrent pneunonia, microcytic anemia requiring transfusion (09/2019), TBI, bipolar disorder, and narcotic addiction. Admitted for acute blood loss anemia. Acute blood loss anemia in setting of anti-coagulant and NSAID medications --had been on Xarelto, high-doses of Excedrin, daily ASA; stop all --Hgb 5.6 on admission, transfused 2U -->Hgb 8.5, stable --seen and evaluated by GI, agrees to EGD, not to colonoscopy; EGD when COVID comes back --continue protonix --seen and evaluated by heme, venofer 200mg daily Jaundice Pruritis --prurutis has resolved following transfusion, just some mild itching on left forearm, apply cortisone cream --no longer jaundice appearing; labs do not suggest hemolysis Paroxysmal atrial fibrillation --presently in sinus rhythm, rate is controlled, continue amlodipine --hold Xarelto due to bleeding; cardio and heme agree Community acquired pneumonia Chronic COPD --likely aspiration event as patient takes high dose benzos, spends most of day lying in bed --ceftriaxone (day #2); azithro (day #2) --continue Symbicort, albuterol MDI PRN Diastolic heart dysfunction --08/16/19 Echo: LV normal, EF 55%, Grade I diastolic dysfunction; RV normal; trace MR --some pulmonary congestion seen on CXR, 1+ bilateral lower extremity edema --Lasix PRN LLE calf pain --US negative for DVT Hypertension --continue amlodipine, clonidine Hyperlipidemia --continue Lipitor Traumatic brain injury Bipolar disorder --episode of acute danette during previous hospitalization 03/2019 --calm, cooperative at present --continue doxepin --continue Abilify, adderall, lorazepam FEN Fluids: PO intake adequate Electrolytes: replete as indicated Nutrition: low sodium; NPO after midnight DVT prophylaxis: SCDs Physical therapy Dispo: continues to require inpatient care. Full code. Visit type - Emergency Visit Emergency Visit: Yes ED Registration Date: 02/14/20 Care time: The patient presented to the Emergency Department on the above date and was hospitalized for further evaluation of their emergent condition. - New Patient This patient is new to me today: No - Critical Care Critical Care patient: No - Medication Review Med list reviewed for High Risk Meds patients 65 and older: Yes
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
--- NOTE | 2020-02-16 16:54 | PN ---
Progress Note (short form) - Note Progress Note: S: no cp sob palps dizzy Current Medications Generic Name Dose Route Start Last Admin Trade Name Freq PRN Reason Stop Dose Admin Albuterol Sulfate 2 puff 02/14/20 06:07 Ventolin Hfa Inhaler - IH Q6H PRN SHORT OF BREATH/WHEEZING Amlodipine Besylate 10 mg 02/14/20 10:00 02/16/20 10:52 Norvasc - PO 10 mg DAILY CHUCK Administration Aripiprazole 2 mg 02/14/20 15:45 02/16/20 09:31 Abilify PO 2 mg DAILY CHUCK Administration Atorvastatin Calcium 20 mg 02/14/20 22:00 02/15/20 21:11 Lipitor - PO 20 mg HS CHUCK Administration Budesonide/Formoterol Fumarate 1 puff 02/14/20 10:00 02/16/20 09:33 Symbicort 80/4.5mcg - IH 1 puff BID CHUCK Administration Clonidine 0.3 mg 02/14/20 10:00 02/16/20 10:00 Catapres - PO Not Given BID CHUCK Doxepin HCl 150 mg 02/14/20 22:00 02/15/20 21:11 Sinequan - PO 150 mg HS CHUCK Administration Ferrous Sulfate 325 mg 02/16/20 10:00 02/16/20 09:32 Feosol - PO 02/16/20 22:00 325 mg BID CHUCK Administration Hydrocortisone 1 applic 02/14/20 13:45 02/16/20 09:34 Hytone 0.5% Cream - TP 1 applic DAILY CHUCK Administration Ceftriaxone Sodium 1 gm/ 50 mls @ 100 mls/hr 02/14/20 22:00 02/16/20 09:32 Dextrose IVPB 100 mls/hr DAILY CHUCK Administration Protocol Azithromycin 250 mg/ Dextrose 250 mls @ 250 mls/hr 02/15/20 15:00 02/16/20 10:40 IVPB 02/18/20 10:59 250 mls/hr DAILY CHUCK Administration Iron Sucrose 200 mg/ Sodium 100 mls @ 100 mls/hr 02/17/20 10:00 Chloride IVPB 02/17/20 10:59 ONCE ONE Lorazepam 4 mg 02/14/20 15:45 02/16/20 09:33 Ativan - PO 4 mg TID CHUCK Administration Non-Formulary Medication 20 mg 02/15/20 10:00 Dextroamphetamine/Amphetamine [Adderall 10 Mg Tablet] PO DAILY CHUCK Senna/Docusate Sodium 2 tablet 02/16/20 22:00 Pericolace - PO HS PRN CONSTIPATION Tamsulosin HCl 0.4 mg 02/14/20 22:00 02/15/20 21:23 Flomax - PO Not Given HS CHUCK Vital Signs Period Temp Pulse Resp BP Sys/Walter Pulse Ox Last 24 Hr 98.2 F-99.0 F 79-86 18-20 110-131/51-59 92-96 nstitutional: Yes: Well Nourished, No Distress, Calm Eyes: Yes: Conjunctiva Clear, EOM Intact HENT: Yes: Atraumatic, Normocephalic Neck: Yes: Supple, Trachea Midline Respiratory: Yes: Regular, CTA Bilaterally Gastrointestinal: Yes: Normal Bowel Sounds, Soft Cardiovascular: Yes: Regular Rate and Rhythm JVD: No Heart Sounds: Yes: S1, S2 Musculoskeletal: No: Back Pain Extremities: No: Cold Edema: No Neurological: Yes: Alert, Oriented CBC, BMP 02/16/20 07:20 02/16/20 07:20 Assessment/Plan 08/16/19 Echo: LV normal, EF 55%, Grade I diastolic dysfunction; RV normal; trace MR EKG: sinus, nl intervals, no ischemic changes CXR: mild congestion CT chest: RAOUL patchy infiltrate, chronic atelectasis/scarring of LLL posteriorly, loculatede pleural fluid in R lower chest, chronic vs recurrent mild bibasilar septal thickening may be 2/2 mild interstitial pulm vascular congestion vs representing mild chronic interstitial lung dz 69M h/o HTN, HLD, afib, chronic diastolic HF, COPD, anemia p/w anemia anemia - s/p transfusion PRBC - holding xarelto - was also on NSAIDS, aspirin - all dc'ed - occult stool blood negative - manage per primary, GI consulted, plans for egd. No cardiac contraindications to egd/colonoscopy. afib - holding xarelto as above - in sinus here chronic diastolic HF - received IV lasix, edema resolved - dc lasix, monitor volume status. can give PRN if additional transfusions are needed HTN - cont home meds COPD - manage per primary
--- NOTE | 2020-02-16 18:05 | CONS ---
DATE OF CONSULTATION: 02/15/2020 HISTORY OF PRESENT ILLNESS: I was asked to evaluate this 69-year-old gentleman with anemia and low iron studies. The patient is a 69-year-old gentleman with a history of paroxysmal atrial fibrillation on Xarelto, mild heart dysfunction, COPD, recurrent pneumonias, and hypertension. He also has a history of anemia requiring blood transfusions and has history of bipolar disorder. Review of old records suggests he had a colonoscopy 5+ years ago by , and years prior to that an upper endoscopy by Dr. Jolley at [place]. The patient believes both studies were unremarkable. He is unsure why they were done. The patient has not seen any black or tarry stool or bright red blood per rectum. He has been taking a baby aspirin daily, occasional Excedrin, as well as NSAIDs. He is also on Xarelto. His most recent stool Hemoccult test was negative. He was admitted with weakness, a hemoglobin of 5.6, and hematocrit of 20%. He has microcytic indices and prior and recent iron studies have been low. He was recommended to have both upper and lower GI endoscopies several months ago for iron-deficiency anemia, but did not follow through for these exams. During this current hospitalization, he has had an abdominal pelvic CAT scan which did not show any obvious masses in the abdomen. He may have a left upper lobe patchy infiltrate. Review of prior records also suggests that he may have an elevated PSA level and possibly an underlying rheumatologic disorder or elevated Ariana-Lanier viral titers. Currently on exam, the patient is resting in bed. He is aware that he received packed red blood cells and had been feeling somewhat fatigued. He denies any nausea, vomiting, abdominal pain, or cramps. PHYSICAL EXAMINATION: Cardiac/Lungs: On exam, he has grossly clear lungs and a regular rate and rhythm on cardiac exam. Abdomen: Soft, flat, nontender. His recent Hemoccult test with stool was negative. His INR is 1.21. His initial hemoglobin and hematocrit were 5.6 and 20.2 with an MCV of 74.6, post transfusion his hematocrit to 25.1%. His chemistries are notable for BUN of 15 and creatinine of 0.8. IMPRESSION: Patient with significant anemia of unclear etiology . There is no evidence of a gross blood in the stool, but he does have microcytic indices, low ferritin and iron studies. The patient is reluctant to consider a colonoscopy at the present time but is agreeable to an upper endoscopy in view of his use of nonsteroidal antiinflammatory drugs and aspirin and chronic use of Xarelto, he may have an underlying source of gastrointestinal bleeding, possibly gastritis or an ulcer. Will arrange for the endoscopy tomorrow morning with recommendations to follow. DENNY CONTRERAS M.D. TIFFANIE/[id number]
[2020-02-16 18:29] LABS: HEMATOCRIT 32.5 % (35.4-49); MCH 23.3 pg (25.7-33.7); MCHC 30.8 g/dl (32.0-35.9); MEAN CELL VOLUME 75.6 fl (80-96); MEAN PLT VOLUME 9.2 fl (7.5-11.1); PLATELET COUNT 448 K/MM3 (134-434); RBC 4.31 M/mm3 (4.00-5.60); RDW 18.6 % (11.9-15.9); WHITE BLOOD COUNT 14.6 K/mm3 (4.0-10.8)
[2020-02-16] MEDS: ATORVASTATIN CA 20 MG TABLET (FP) PO SCH (21:38)
[2020-02-16] MEDS: DOXEPIN HCL 25 MG CAPSULE PO SCH (21:38)
[2020-02-16] MEDS: TAMSULOSIN HCL 0.4 MG CAP PO SCH (21:39)
[2020-02-16] MEDS ORDERED: SENNOSIDES/DOCUSATE COMBO (SENNA PLUS) TABLET (UD) PO PRN (22:00)
[2020-02-17] MEDS ORDERED: ARTIFICIAL TEARS (POLYVINYL ALCOHOL) OPTH DROPS OU PRN (00:09)
[2020-02-17] MEDS ORDERED: ACETAMINOPHEN 325 MG TABLET (FP) PO ONE (00:10)
[2020-02-17] MEDS ORDERED: PT OWN MED DRAWER 7, Y5N ONE (00:30)
[2020-02-17] MEDS ORDERED: LORazepam 0.5 MG TABLET ONE (06:13)
[2020-02-17] MEDS: LORazepam 1 MG TABLET PO SCH ×2 (06:17→15:00)
[2020-02-17 07:48] LABS: ALBUMIN 3.2 g/dl (3.4-5.0); BILIRUBIN,TOTAL 0.5 mg/dl (0.2-1); CALCIUM 8.3 mg/dl (8.5-10); CREATININE 0.8 mg/dl (0.55-1.3); MAGNESIUM 2.2 mg/dL (1.8-2.4); POTASSIUM 3.7 mmol/L (3.5-5.1); TOT PROT 5.7 g/dl (6.4-8.2)
[2020-02-17 08:44] LABS: BASO % 0.4 % (0-2.0); EOS % 4.9 % (0-4.5); HEMATOCRIT 26.9 % (35.4-49); LYMPH % 15.8 % (8-40); MCH 23.6 pg (25.7-33.7); MCHC 31.1 g/dl (32.0-35.9); MEAN CELL VOLUME 75.8 fl (80-96); MEAN PLT VOLUME 8.8 fl (7.5-11.1); MONO % 7.1 % (3.8-10.2); NEUT % 71.8 % (42.8-82.8); PLATELET COUNT 331 K/MM3 (134-434); RBC 3.55 M/mm3 (4.00-5.60); RDW 18.9 % (11.9-15.9); WHITE BLOOD COUNT 10.4 K/mm3 (4.0-10.8)
[2020-02-17 08:51] LABS: ADD RBC MORPHOLOGY YES; HEMOGLOBIN 8.4 GM/dl (11.7-16.9)
[2020-02-17] MEDS ORDERED: DEXTROSE 5%-WATER - 50 ML IVPB ONE (09:26)
[2020-02-17] MEDS ORDERED: cefTRIAXone SODIUM 1 GM VIAL ONE (09:26)
[2020-02-17] MEDS ORDERED: IRON SUCROSE INJECTION 200 MG in SODIUM CHLORIDE 90 ML IVPB ONE (10:00)
[2020-02-17 10:03] LABS: ANISOCYTOSIS 2+
[2020-02-17 10:04] VITALS: PULSE 68
[2020-02-17 10:04] LABS: PLATELET ESTIMATE ADEQUATE
[2020-02-17] MEDS ORDERED: IRON SUCROSE INJECTION 200 MG in SODIUM CHLORIDE 100 ML IVPB ONE (10:06)
[2020-02-17] MEDS: CEFTRIAXONE 1 GM in DEXTROSE 5%-WATER - 50 ML IVPB SCH (10:08)
[2020-02-17] MEDS: BUDESONIDE/FORMETEROL FUMARATE 80/4.5 mcg INHALER IH SCH (10:08)
[2020-02-17] MEDS: AZITHROMYCIN IVPB 250 MG in DEXTROSE 5%-WATER - 250 ML IVPB SCH (10:11)
[2020-02-17] MEDS: cloNIDine HCL 0.1 MG TABLET PO SCH (10:49)
[2020-02-17] MEDS: HYDROCORTISONE 0.5% TOPICAL CREAM 30 GM TUBE TP SCH (10:50)
[2020-02-17] MEDS: amLODIPine BESYLATE 10 MG TABLET (FP) PO SCH (10:50)
[2020-02-17] MEDS: ARIPiprazole 2 MG TABLET PO SCH (10:51)
--- NOTE | 2020-02-17 14:07 | PN ---
Progress Note (short form) - Note Progress Note: Upper endoscopy performed with report in chart. Findings include small nonbleeding duodenal AVM -ablated, moderate duodenitis including an small ulcer in the duodenal bulb (and erosion), moderated gastritis with erosions, hiatal hernia and moderated distal esophagitis. Findings could certainly account for occult GI blood loss and iron deficiency but would also recommend colonoscopy if patient will allow. Rec: PPI daily avoid NSAIDS, ASA and if needed, use a/c with caution follow CBC iron supplements colonoscopy if patient will allow
[2020-02-17 14:12] VITALS: BP 107/52; TEMP 98.3
--- NOTE | 2020-02-17 14:15 | DS ---
Physical Exam: SUBJECTIVE: Patient seen and examined. tolerated EGD this morning well. Feels ready to go home. OBJECTIVE: Vital Signs Period Temp Pulse Resp BP Sys/Walter Pulse Ox Last 24 Hr 97.8 F-98.3 F 68-106 16-19 107-144/52-80 95-99 PHYSICAL EXAM GENERAL: Awake, alert, and fully oriented. LUNGS: CTA HEART: Regular rate and rhythm, normal S1 and S2 +murmur ABDOMEN: Soft, nontender, not distended UPPER EXTREMITIES: 2+ pulses, warm, well-perfused. No cyanosis. No clubbing. No peripheral edema. Several small areas of excoriation LOWER EXTREMITIES: 2+ pulses, warm, well-perfused. No calf tenderness. Trace bilateral edema NEUROLOGICAL: Cranial nerves II-XII intact. Normal speech. Self-positions easily PSYCHIATRIC: Irritable LABS Laboratory Results - last 24 hr 02/14/20 02/14/20 02/16/20 03:44 06:53 18:10 WBC 14.6 H RBC 4.31 Hgb 10.0 L Hct 32.5 L D MCV 75.6 L MCH 23.3 L MCHC 30.8 L RDW 18.6 H Plt Count 448 H D MPV 9.2 Absolute Neuts (auto) Neutrophils % Lymphocytes % Monocytes % Eosinophils % Basophils % Hypochromia Platelet Estimate Poikilocytosis Anisocytosis Sodium Potassium Chloride Carbon Dioxide Anion Gap BUN Creatinine Est GFR (CKD-EPI)AfAm Est GFR (CKD-EPI)NonAf Random Glucose Calcium Magnesium Total Bilirubin AST ALT Alkaline Phosphatase Total Protein Albumin COVID-19 (VIKKI) Not detected Blood Type B POSITIVE Antibody Screen Negative Crossmatch See Detail 02/17/20 02/17/20 07:16 07:16 WBC 10.4 RBC 3.55 L Hgb 8.4 L Hct 26.9 L D MCV 75.8 L MCH 23.6 L MCHC 31.1 L RDW 18.9 H Plt Count 331 D MPV 8.8 Absolute Neuts (auto) 7.6 Neutrophils % 71.8 Lymphocytes % 15.8 D Monocytes % 7.1 Eosinophils % 4.9 H Basophils % 0.4 Hypochromia 2+ Platelet Estimate Adequate Poikilocytosis 1+ Anisocytosis 2+ Sodium 138 Potassium 3.7 Chloride 107 Carbon Dioxide 23 Anion Gap 8 BUN 14.0 Creatinine 0.8 Est GFR (CKD-EPI)AfAm 104.90 Est GFR (CKD-EPI)NonAf 90.51 Random Glucose 108 H Calcium 8.3 L Magnesium 2.2 Total Bilirubin 0.5 AST 29 ALT 29 Alkaline Phosphatase 49 Total Protein 5.7 L Albumin 3.2 L COVID-19 (VIKKI) Blood Type Antibody Screen Crossmatch HOSPITAL COURSE: Date of Admission:02/14/20 Date of Discharge: 02/17/20 Pre hospital course This is a 69 year-old male with a PMH significant for HTN, HLD, paroxysmal atrial fibrillation on Xarelto, diastolic heart dysfunction, COPD, recurrent pneunonia, anemia requiring transfusion (09/2019), TBI, and bipolar disorder. Patient presented to the [facility] after routine blood testing done in his PCP's office revealed a low Hgb. Patient states he has been fatigued and has been experiencing diffuse body itching for several days. He has a rash on his left arm. He has had headaches and for the past month has been taking two Excedrin twice a day, plus daily baby ASA, plus Tylenol. He denies any bleeding episodes, denies hematuria, hematochezia, hematemesis. He denies fever, sweats, chills. He denies chest pain, shortness of breath, palpitations, lightheadedness. He denies nausea, vomiting, diarrhea, and abdominal pain. ER course was notable for: (1) WBC 11.6k, afebrile (2) Hgb 5.6 (3) K 3.4 (4) occult stool negative Subsequent hospital course This is a 69 year-old male with a PMH significant for HTN, HLD, paroxysmal atrial fibrillation on Xarelto, diastolic heart dysfunction, COPD, recurrent pneunonia, microcytic anemia requiring transfusion (09/2019), TBI, bipolar disorder, and narcotic addiction. Admitted for acute blood loss anemia. Acute blood loss anemia in setting of anti-coagulant and NSAID medications --had been on Xarelto, high-doses of Excedrin, daily ASA; stopped all --Hgb 5.6 on admission, transfused 2U -->Hgb 8.5, remained stable --EDG performed 02/16: duodenal inflammation, small non-bleeding ulcer in duodenal bulb, erosion in duodenal bulb; small AVM with no bleeding duodenum; gastritis, esophagitis, hiatal herna --continued protonix --avoid NSAIDS Pruritis --prurutis resolved following transfusion, just some mild itching on left forearm, apply cortisone cream Paroxysmal atrial fibrillation --in sinus rhythm, rate is controlled, continued amlodipine --Xarelto was held due to bleeding, OK to resume day after discharge Community acquired pneumonia --likely aspiration event as patient takes high dose benzos, spends most of day lying in bed --treated with ceftriaxone and azithro Chronic COPD --continued Symbicort, albuterol MDI PRN Diastolic heart dysfunction --08/16/19 Echo: LV normal, EF 55%, Grade I diastolic dysfunction; RV normal; trace MR --some pulmonary congestion seen on CXR, 1+ bilateral lower extremity edema --Lasix PRN LLE calf pain --US negative for DVT Hypertension --continued amlodipine, clonidine Hyperlipidemia --continued Lipitor Traumatic brain injury Bipolar disorder --episode of acute danette during previous hospitalization 03/2019 --continued doxepin, Abilify, adderall, lorazepam Minutes to complete discharge: 35 Discharge Summary Problems reviewed: Yes Reason For Visit: RASH WITH PRURITIS Current Active Problems Anemia (Acute) Condition: Improved - Instructions Diet, Activity, Other Instructions: Two prescriptions have been sent to your pharmacy: one is for ferrous sulfate (iron supplement), and the other is for protonix. Take these medications as directed. DO NOT TAKE aspirin, Excedrin, motrin, ibuprofen, naprosyn or any other NSAID or aspirin-containing product. You may resume taking your regular dose of Xarelto tomorrow, 02/18/20. It is recommended you have a colonoscopy. You may follow up with Dr. Orellana if you choose. His contact information is enclosed. Referrals: Orlando Orellana MD [Staff Physician] - Disposition: HOME - Home Medications Comprehensive Discharge Medication List: Ambulatory Orders Amlodipine Besylate [Norvasc -] 10 mg PO DAILY 12/24/11 Budesonide/Formeterol Fumarate [SYMBICORT 80/4.5mcg -] 1 inh PO BID 01/21/19 Tamsulosin HCl [Flomax -] 0.4 mg PO HS cap.er.24h 04/27/19 Simvastatin 40 mg PO DAILY 08/13/19 Doxepin HCl [Sinequan -] 150 mg PO HS 08/14/19 LORazepam [Lorazepam] 4 mg PO TID 08/14/19 cloNIDine HCL [Catapres -] 0.2 mg PO BID 08/14/19 Albuterol 2.5/Ipratropium 0.5 [Duoneb -] 1 amp NEB RQID #30 amp 08/25/19 Rivaroxaban [Xarelto -] 20 mg PO DAILY 10/12/19 Acetaminophen [Tylenol .Regular Strength -] 650 mg PO Q6H PRN tablet 12/14/19 Albuterol Sulfate Inhaler - [Ventolin HFA Inhaler -] 2 puff IH Q4H PRN inhaler 12/14/19 Ascorbic Acid [Vitamin C -] 500 mg PO DAILY tablet 12/14/19 Dextroamphetamine/Amphetamine [Adderall 10 mg Tablet] 30 mg PO DAILY #30 tablet MDD 30mg 12/14/19 Pantoprazole Sodium [Protonix -] 40 mg PO DAILY tablet.ec 12/14/19 Aripiprazole [Abilify -] 2 mg PO DAILY 02/14/20 This patient is new to me today: No Emergency Visit: Yes ED Registration Date: 02/14/20 Care time: The patient presented to the Emergency Department on the above date and was hospitalized for further evaluation of their emergent condition. Critical Care patient: No - Discharge Referral Referred to [facility] Med P.C.: No
--- NOTE | 2020-02-22 12:27 | PATH ---
Surgical Pathology Report Patient Name: CHARLES HENDERSON Med. Rec. #: [id number] /Age/Gender: 1950 (Age: 69) / M Account: [id number] Location: [facility] MED-SURG Taken: 02/17/2020 Received: 02/17/2020 Reported: 02/22/2020 Physicians: NATALIE Wilde M.D. Specimen(s) Received A: SECOND PORTION DUODENUM B: ANTRUM C: GE JUNCTION D: LOWER ESOPHAGUS Clinical History Anemia Postoperative diagnosis: Esophagitis, AVM, hiatal hernia, gastritis, duodenitis. Final Diagnosis A. SECOND PORTION DUODENUM, BIOPSY: SUPERFICIAL PORTION OF DUODENAL MUCOSA WITH NO SIGNIFICANT PATHOLOGIC CHANGE. NO HISTOLOGIC EVIDENCE OF INTRAEPITHELIAL LYMPHOCYTOSIS. B. ANTRUM, BIOPSY: GASTRIC MUCOSA WITH CHRONIC GASTRITIS. IMMUNOSTAIN FOR H. PYLORI IS NEGATIVE. The NEGATIVE FOR INTESTINAL METAPLASIA. C. GE JUNCTION, BIOPSY: SQUAMOUS MUCOSA WITH ACUTE AND CHRONIC INFLAMMATION, BASAL CELL HYPERPLASIA, COMPATIBLE WITH SEVERE REFLUX ESOPHAGITIS. NEGATIVE FOR INTESTINAL METAPLASIA. D. LOWER ESOPHAGUS, BIOPSY: SQUAMOUS MUCOSA WITH ULCERATION, MARKED ACUTE AND CHRONIC INFLAMMATION, BASAL CELL HYPERPLASIA, AND GRANULATION TISSUE FORMATION, COMPATIBLE WITH SEVERE REFLUX ESOPHAGITIS. PAS STAIN IS NEGATIVE FOR FUNGAL HYPHAE. CLINICAL CORRELATION IS RECOMMENDED. Electronically Signed Renetta Gallegos M.D. Gross Description A. Received in formalin, labeled "second portion duodenum biopsy" is a skinner, irregular portion of soft tissue measuring 0.3 cm. in greatest dimension. The specimens are submitted in toto in one cassette. B. Received in formalin, labeled "gastric antrum" is a skinner, irregular portion of soft tissue measuring 0.3 cm. in greatest dimension. The specimens are submitted in toto in one cassette. C. Received in formalin, labeled "GE junction" is a skinner, irregular portion of soft tissue measuring 0.3 cm. in greatest dimension. The specimens are submitted in toto in one cassette. D. Received in formalin, labeled "lower esophagus" is a skinner, irregular portion of soft tissue measuring 0.3 cm. in greatest dimension. The specimens are submitted in toto in one cassette. __ KWS/02/20/2020 sulki/02/20/2020
== END 2020-02-17 16:00 | disposition home or self-care (01) | DRG 377 ==
LOC: FER 03:07 → FM/S 07:38
PROVIDERS: ADMIT Internal Medicine; ATTEND Nurse Practitioner Acute Care
PROC: 0DB68ZX Excision of Stomach, Via Natural or Artificial Opening Endoscopic, Diagnostic (ICD-10-PCS; 2020-02-17)
PROC: 0DB38ZX Excision of Lower Esophagus, Via Natural or Artificial Opening Endoscopic, Diagnostic (ICD-10-PCS; 2020-02-17)
PROC: 0W3P8ZZ Control Bleeding in Gastrointestinal Tract, Via Natural or Artificial Opening Endoscopic (ICD-10-PCS; 2020-02-17)
PROC: 0DB98ZX Excision of Duodenum, Via Natural or Artificial Opening Endoscopic, Diagnostic (ICD-10-PCS; principal; 2020-02-17 13:27)
DX: K31.811 Angiodysplasia of stomach and duodenum with bleeding (principal); J69.0 Pneumonitis due to inhalation of food and vomit; D62 Acute posthemorrhagic anemia; I50.32 Chronic diastolic (congestive) heart failure; J98.11 Atelectasis; R17 Unspecified jaundice; D50.9 Iron deficiency anemia, unspecified; I10 Essential (primary) hypertension; J44.9 Chronic obstructive pulmonary disease, unspecified; K21.9 Gastro-esophageal reflux disease without esophagitis; N40.0 Benign prostatic hyperplasia without lower urinary tract symptoms; E78.00 Pure hypercholesterolemia, unspecified; E87.6 Hypokalemia; I48.0 Paroxysmal atrial fibrillation; I11.0 Hypertensive heart disease with heart failure; F31.9 Bipolar disorder, unspecified; F17.210 Nicotine dependence, cigarettes, uncomplicated; F98.8 Other specified behavioral and emotional disorders with onset usually occurring in childhood and adolescence; T39.395A Adverse effect of other nonsteroidal anti-inflammatory drugs [NSAID], initial encounter; T45.515A Adverse effect of anticoagulants, initial encounter; D72.829 Elevated white blood cell count, unspecified; F90.9 Attention-deficit hyperactivity disorder, unspecified type; Z87.820 Personal history of traumatic brain injury; L29.9 Pruritus, unspecified; M79.662 Pain in left lower leg; K44.9 Diaphragmatic hernia without obstruction or gangrene; K29.80 Duodenitis without bleeding; K26.0 Acute duodenal ulcer with hemorrhage; K29.70 Gastritis, unspecified, without bleeding; K20.8 Other esophagitis
CPT/HCPCS: 36415; 36430; 71045-TC-FY; 71250-TC; 74176-TC; 80048; 80053; 80061; 80074; 80076; 82272; 82306; 82550; 82607; 82728; 82962; 83010; 83036; 83540; 83550; 83615; 83690; 83735; 84443; 84466; 84484; 85025; 85027; 85044; 85610; 86140; 86850; 86900; 86901; 86922; 88305-TC; 93005; 93970-TC; 97116-GP; 97161-GP; 99285-25; J0735; J1756; P9058; U0003

== ENCOUNTER 2020-08-20 11:54 | Emergency (ER) | payer OTHER, MEDICARE ==
[2020-08-20 12:07] VITALS: BMI 30.4
[2020-08-20] MEDS ORDERED: ALBUTEROL SO4 HFA INHALER IH ONE ×2 (12:59→13:07)
[2020-08-20] MEDS ORDERED: methylPREDNISolone NA SUCC 125 MG/2 ML VIAL IVPUSH ONE (13:01)
[2020-08-20] MEDS ORDERED: methylPREDNISolone NA SUCC 125 MG/2 ML VIAL ONE (13:07)
[2020-08-20 14:20] VITALS: TEMP 98.2
[2020-08-20 14:33] LABS: HEMATOCRIT 46.7 % (35.4-49); HEMOGLOBIN 15.3 GM/dl (11.7-16.9); MCH 29.1 pg (25.7-33.7); MCHC 32.7 g/dl (32.0-35.9); MEAN PLT VOLUME 9.3 fl (7.5-11.1); PLATELET COUNT 219 K/MM3 (134-434); RBC 5.25 M/mm3 (4.00-5.60); RDW 16.2 % (11.9-15.9); WHITE BLOOD COUNT 11.6 K/mm3 (4.0-10.8)
[2020-08-20 14:44] LABS: ALBUMIN 4.1 g/dl (3.4-5.0); BILIRUBIN,TOTAL 0.9 mg/dl (0.2-1); CALCIUM 9.2 mg/dl (8.5-10); POTASSIUM 3.8 mmol/L (3.5-5.1)
[2020-08-20 15:22] VITALS: BP 128/69
[2020-08-20 15:23] VITALS: PULSE 75
[2020-08-20] MEDS ORDERED: ACETAMINOPHEN 325 MG TABLET (FP) PO ONE (15:55)
[2020-08-20] MEDS ORDERED: ACETAMINOPHEN 325 MG TABLET (FP) ONE (15:57)
[2020-08-20 19:14] LABS: PLATELET ESTIMATE ADEQUATE
== END 2020-08-20 16:32 | disposition home or self-care (01) ==
LOC: FER 11:54
PROC: 3E0F7GC Introduction of Other Therapeutic Substance into Respiratory Tract, Via Natural or Artificial Opening (ICD-10-PCS; principal; 2020-08-20)
PROC: 3E033NZ Introduction of Analgesics, Hypnotics, Sedatives into Peripheral Vein, Percutaneous Approach (ICD-10-PCS; 2020-08-20)
DX: J44.1 Chronic obstructive pulmonary disease with (acute) exacerbation (principal)
CPT/HCPCS: 36415; 71045-TC-FY; 80053; 85025; 87040; 93005; 99285-25; C9803; U0003

== ENCOUNTER 2020-08-31 03:08 | Emergency (ER) | payer OTHER, MEDICARE ==
[2020-08-31 03:20] VITALS: BP 127/65; PULSE 65; TEMP 97.3; BMI 29.5
[2020-08-31] MEDS ORDERED: methylPREDNISolone NA SUCC 125 MG/2 ML VIAL IVPB ONE (03:36)
[2020-08-31] MEDS ORDERED: ALBUTEROL SO4 2.5/IPRATROPIUM 0.5 INH SOL 3 ML VIAL.NEB. NEB ONE ×4 (03:38→04:52)
[2020-08-31] MEDS ORDERED: methylPREDNISolone NA SUCC 125 MG/2 ML VIAL ONE (03:38)
== END 2020-08-31 05:25 | disposition home or self-care (01) ==
LOC: FER 03:08
PROC: 3E033NZ Introduction of Analgesics, Hypnotics, Sedatives into Peripheral Vein, Percutaneous Approach (ICD-10-PCS; principal; 2020-08-31)
PROC: 3E0F7GC Introduction of Other Therapeutic Substance into Respiratory Tract, Via Natural or Artificial Opening (ICD-10-PCS; 2020-08-31)
DX: J44.1 Chronic obstructive pulmonary disease with (acute) exacerbation (principal)
CPT/HCPCS: 99284-25

== ENCOUNTER 2020-09-27 14:09 | Inpatient (IN) | payer OTHER, MEDICARE ==
[2020-09-27] MEDS ORDERED: ACETAMINOPHEN 500 MG TABLET (FP) PO ONE (14:26)
[2020-09-27] MEDS ORDERED: ACETAMINOPHEN 500 MG TABLET (FP) ONE (15:07)
[2020-09-27 15:23] LABS: WHITE BLOOD COUNT 21.2 K/mm3 (4.0-10.8)
[2020-09-27 15:25] LABS: HEMATOCRIT 45.6 % (35.4-49); HEMOGLOBIN 15.8 GM/dl (11.7-16.9); MCH 30.8 pg (25.7-33.7); MCHC 34.6 g/dl (32.0-35.9); MEAN CELL VOLUME 89.2 fl (80-96); MEAN PLT VOLUME 8.8 fl (7.5-11.1); PLATELET COUNT 232 K/MM3 (134-434); RBC 5.11 M/mm3 (4.00-5.60); RDW 13.9 % (11.9-15.9)
[2020-09-27 15:30] LABS: ALBUMIN 3.7 g/dl (3.4-5.0); BILIRUBIN,TOTAL 0.6 mg/dl (0.2-1); CALCIUM 8.9 mg/dl (8.5-10); TOT PROT 6.3 g/dl (6.4-8.2)
[2020-09-27] MEDS ORDERED: AZITHROMYCIN IVPB 500 MG in DEXTROSE 5%-WATER - 250 ML IVPB ONE (15:51)
[2020-09-27] MEDS ORDERED: PIPERACILLIN/TAZOB 3.375 GM 3.375 GM in DEXTROSE 5%-WATER - 50 ML IVPB ONE (15:51)
[2020-09-27] MEDS ORDERED: VANCOMYCIN 1 GM in D5W (PRE-DOCKED) 1,000 MG/250 ML IVPB ONE (15:51)
[2020-09-27 16:17] LABS: ACTIVATED PTT 29.2 SECONDS (25.2-36.5)
[2020-09-27] MEDS ORDERED: AZITHROMYCIN 500 MG VIAL IVPB ONE (16:19)
[2020-09-27] MEDS ORDERED: VANCOMYCIN 1,000 MG VIAL (RESTRICTED TO ID ONLY) ONE (16:19)
[2020-09-27] MEDS ORDERED: PIPERACILLIN/TAZOBACTAM 3.375 GM VIAL IVPB ONE (16:19)
[2020-09-27 16:21] LABS: INR 1.2 (0.82-1.09); PROTHROMBIN TIME (PATIENT) 13.3 SEC (10.2-13.0)
[2020-09-27 16:48] LABS: PLATELET ESTIMATE ADEQUATE
[2020-09-27 16:54] LABS: VENOUS BASE EXCESS 1.5 mmol/L (-2-2); VENOUS O2 SATURATION 84.7 % (70-80); VENOUS PCO2 37.4 mmHg (38-52); VENOUS PH 7.446 (7.310-7.410)
[2020-09-27] MEDS ORDERED: SODIUM CHLORIDE 500 ML IV STA (17:43)
[2020-09-27 21:05] VITALS: BMI 31.9
[2020-09-27] MEDS ORDERED: ACETAMINOPHEN 325 MG TABLET (FP) PO PRN (23:57)
[2020-09-28] MEDS ORDERED: DOXEPIN HCL 50 MG CAPSULE PO SCH (00:15)
[2020-09-28] MEDS ORDERED: DOXEPIN HCL 25 MG CAPSULE PO SCH ×2 (00:24→00:45)
[2020-09-28] MEDS: BUDESONIDE/FORMETEROL FUMARATE 80/4.5 mcg INHALER IH SCH ×3 (00:46→23:53)
[2020-09-28] MEDS ORDERED: DEXTROSE 5%-WATER 100 ML IVPB ONE ×2 (02:36→09:40)
[2020-09-28] MEDS ORDERED: PIPERACILLIN/TAZOBACTAM 4.5 GM VIAL IVPB ONE ×2 (02:36→09:41)
[2020-09-28] MEDS: PIPERACILLIN/TAZOB 4.5 GM 4.5 GM in DEXTROSE 5%-WATER 100 ML IVPB SCH ×3 (02:57→15:27)
[2020-09-28] MEDS ORDERED: PIPERACILLIN/TAZOB 4.5 GM 4.5 GM in DEXTROSE 5%-WATER 100 ML IVPB SCH (03:00)
[2020-09-28 08:18] LABS: BASO % 1.6 % (0-2.0); EOS % 1.4 % (0-4.5); HEMATOCRIT 45.5 % (35.4-49); HEMOGLOBIN 15.3 GM/dl (11.7-16.9); LYMPH % 14.7 % (8-40); MCHC 33.6 g/dl (32.0-35.9); MEAN CELL VOLUME 89.5 fl (80-96); MONO % 4.5 % (3.8-10.2); NEUT % 77.8 % (42.8-82.8); PLATELET COUNT 224 K/MM3 (134-434); RBC 5.08 M/mm3 (4.00-5.60); WHITE BLOOD COUNT 14.3 K/mm3 (4.0-10.8)
[2020-09-28 08:19] LABS: ALBUMIN 3.3 g/dl (3.4-5.0); BILIRUBIN,TOTAL 0.8 mg/dl (0.2-1); CALCIUM 8.7 mg/dl (8.5-10); CREATININE 0.9 mg/dl (0.55-1.3); MAGNESIUM 2.2 mg/dL (1.8-2.4); PHOSPHOROUS 3.6 mg/dl (2.5-4.9); POTASSIUM 3.8 mmol/L (3.5-5.1); TOT PROT 6.1 g/dl (6.4-8.2)
[2020-09-28] MEDS: ALBUTEROL SO4 2.5/IPRATROPIUM 0.5 INH SOL 3 ML VIAL.NEB. NEB SCH ×3 (08:29→16:11)
[2020-09-28] MEDS: cloNIDine HCL 0.1 MG TABLET PO SCH ×2 (09:49→23:49)
[2020-09-28] MEDS: amLODIPine BESYLATE 10 MG TABLET (FP) PO SCH (09:49)
[2020-09-28] MEDS: FERROUS SO4 325 MG TABLET (FP) PO SCH ×2 (09:49→23:49)
[2020-09-28] MEDS: ENOXAPARIN NA (PORCINE) 40 MG/0.4 ML DISP.SYRIN SQ SCH (09:59)
[2020-09-28] MEDS ORDERED: VANCOMYCIN HCL 1,500 MG in DEXTROSE 5%-WATER - 250 ML IVPB SCH (10:00)
[2020-09-28] MEDS ORDERED: CLONIDINE HCL 0.2 MG PO SCH (10:00)
[2020-09-28] MEDS ORDERED: predniSONE 20 MG TABLET (UD) PO SCH (10:30)
[2020-09-28] MEDS: PANTOPRAZOLE 40 MG TABLET PO SCH (10:47)
[2020-09-28] MEDS: ACETAMINOPHEN 1000 MG/100 ML VIAL (NON FORMULARY) IVPB PRN ×2 (11:37→22:21)
[2020-09-28] MEDS: VANCOMYCIN HCL 1,500 MG/500 ML BAG IVPB SCH ×2 (11:55→13:03)
[2020-09-28] MEDS: LORazepam 1 MG TABLET PO SCH ×2 (14:31→23:49)
[2020-09-28] MEDS ORDERED: PIPERACILLIN/TAZOBACTAM 3.375 GM VIAL IVPB ONE (17:24)
[2020-09-28] MEDS ORDERED: DEXTROSE 5%-WATER - 50 ML IVPB ONE (17:25)
[2020-09-28] MEDS: PIPERACILLIN/TAZOB 3.375 GM 3.375 GM in DEXTROSE 5%-WATER - 50 ML IVPB SCH (17:30)
[2020-09-28] MEDS ORDERED: PT OWN MED DRAWER 7, Y5N ONE ×4 (20:05→22:41)
[2020-09-28] MEDS: ALBUTEROL SO4 0.083% IH SOL 2.5 MG/3 ML VIAL.NEB. NEB PRN (21:52)
[2020-09-28] MEDS: TETRAHYDROZOLINE HCL EYE DROPS OU PRN (21:52)
[2020-09-28] MEDS: methylPREDNISolone NA SUCC 40 MG/1 ML VIAL IVPUSH SCH (21:53)
[2020-09-28] MEDS ORDERED: ATORVASTATIN CA 20 MG TABLET (FP) PO SCH (22:00)
[2020-09-28] MEDS: MUPIROCIN 2% TOPICAL OINTMENT 22 GM TUBE TP SCH (22:38)
[2020-09-28] MEDS: ATORVASTATIN CA 20 MG TABLET (FP) PO SCH (23:50)
[2020-09-28] MEDS: DOXEPIN HCL 25 MG CAPSULE PO SCH (23:50)
[2020-09-29] MEDS ORDERED: DEXTROSE 5%-WATER - 50 ML IVPB ONE ×3 (00:56→17:14)
[2020-09-29] MEDS ORDERED: PIPERACILLIN/TAZOBACTAM 3.375 GM VIAL IVPB ONE ×3 (00:56→17:14)
[2020-09-29] MEDS ORDERED: PT OWN MED DRAWER 7, Y5N ONE ×2 (01:01→09:12)
[2020-09-29] MEDS: PIPERACILLIN/TAZOB 3.375 GM 3.375 GM in DEXTROSE 5%-WATER - 50 ML IVPB SCH ×3 (01:43→17:16)
[2020-09-29] MEDS: LORazepam 1 MG TABLET PO SCH ×3 (06:33→23:23)
[2020-09-29] MEDS: amLODIPine BESYLATE 10 MG TABLET (FP) PO SCH (09:07)
[2020-09-29] MEDS: PANTOPRAZOLE 40 MG TABLET PO SCH (09:07)
[2020-09-29] MEDS: methylPREDNISolone NA SUCC 40 MG/1 ML VIAL IVPUSH SCH ×2 (09:07→22:19)
[2020-09-29] MEDS: FERROUS SO4 325 MG TABLET (FP) PO SCH ×2 (09:07→23:24)
[2020-09-29] MEDS: cloNIDine HCL 0.1 MG TABLET PO SCH ×2 (09:08→23:24)
[2020-09-29] MEDS: ENOXAPARIN NA (PORCINE) 40 MG/0.4 ML DISP.SYRIN SQ SCH ×2 (09:08→09:28)
[2020-09-29] MEDS: BUDESONIDE/FORMETEROL FUMARATE 80/4.5 mcg INHALER IH SCH ×2 (09:09→22:19)
[2020-09-29] MEDS: MUPIROCIN 2% TOPICAL OINTMENT 22 GM TUBE TP SCH ×2 (09:13→22:19)
[2020-09-29] MEDS ORDERED: SUCRALFATE 1 GM/10 ML UNIT DOSE CUPS PO PRN (09:58)
[2020-09-29] MEDS: ACETAMINOPHEN 1000 MG/100 ML VIAL (NON FORMULARY) IVPB PRN (10:32)
[2020-09-29] MEDS: ACETAMINOPHEN 325 MG TABLET (FP) PO PRN (19:53)
[2020-09-29] MEDS: TETRAHYDROZOLINE HCL EYE DROPS OU PRN (22:19)
[2020-09-29] MEDS: ATORVASTATIN CA 20 MG TABLET (FP) PO SCH (23:24)
[2020-09-29] MEDS: DOXEPIN HCL 25 MG CAPSULE PO SCH (23:25)
[2020-09-30] MEDS ORDERED: PIPERACILLIN/TAZOBACTAM 3.375 GM VIAL IVPB ONE ×2 (01:10→07:42)
[2020-09-30] MEDS ORDERED: DEXTROSE 5%-WATER - 50 ML IVPB ONE ×2 (01:10→07:42)
[2020-09-30] MEDS: PIPERACILLIN/TAZOB 3.375 GM 3.375 GM in DEXTROSE 5%-WATER - 50 ML IVPB SCH (01:26)
[2020-09-30] MEDS: ACETAMINOPHEN 325 MG TABLET (FP) PO PRN ×2 (04:42→18:36)
[2020-09-30] MEDS: ALBUTEROL SO4 0.083% IH SOL 2.5 MG/3 ML VIAL.NEB. NEB PRN (04:43)
[2020-09-30] MEDS ORDERED: BENZOCAINE/MENTH/CETYLPYRD CL 1 EACH LOZENGE MM PRN (04:56)
[2020-09-30] MEDS ORDERED: guaiFENesin 200 MG/10 ML 10 ML UNIT-DOSE CUPS ONE (05:23)
[2020-09-30] MEDS ORDERED: BENZOCAINE/MENTH/CETYLPYRD CL 1 EACH LOZENGE MM ONE (05:24)
[2020-09-30] MEDS: LORazepam 1 MG TABLET PO SCH ×3 (05:25→22:26)
[2020-09-30] MEDS: guaiFENesin 200 MG/10 ML 10 ML UNIT-DOSE CUPS PO PRN ×2 (05:25→22:33)
[2020-09-30] MEDS: MUPIROCIN 2% TOPICAL OINTMENT 22 GM TUBE TP SCH ×2 (09:10→21:03)
[2020-09-30] MEDS: cloNIDine HCL 0.1 MG TABLET PO SCH ×2 (09:11→22:26)
[2020-09-30] MEDS: FERROUS SO4 325 MG TABLET (FP) PO SCH ×2 (09:12→22:26)
[2020-09-30] MEDS: PANTOPRAZOLE 40 MG TABLET PO SCH (09:13)
[2020-09-30] MEDS: amLODIPine BESYLATE 10 MG TABLET (FP) PO SCH (09:13)
[2020-09-30] MEDS: AMOX TR/POT CLAV 875MG/125MG TABLETS (FP) PO SCH ×2 (09:29→18:10)
[2020-09-30] MEDS: ENOXAPARIN NA (PORCINE) 40 MG/0.4 ML DISP.SYRIN SQ SCH (10:08)
[2020-09-30] MEDS: BUDESONIDE/FORMETEROL FUMARATE 80/4.5 mcg INHALER IH SCH ×2 (10:08→21:03)
[2020-09-30] MEDS: methylPREDNISolone NA SUCC 40 MG/1 ML VIAL IVPUSH SCH (10:21)
[2020-09-30] MEDS ORDERED: PT OWN MED DRAWER 7, Y5N ONE (11:44)
[2020-09-30] MEDS: TETRAHYDROZOLINE HCL EYE DROPS OU PRN (21:02)
[2020-09-30] MEDS: ATORVASTATIN CA 20 MG TABLET (FP) PO SCH (22:26)
[2020-09-30] MEDS: DOXEPIN HCL 25 MG CAPSULE PO SCH (22:26)
[2020-10-01] MEDS ORDERED: LORazepam 0.5 MG TABLET ONE (06:03)
[2020-10-01] MEDS: LORazepam 1 MG TABLET PO SCH (06:39)
[2020-10-01 07:31] LABS: HEMATOCRIT 41.9 % (35.4-49); HEMOGLOBIN 13.8 GM/dl (11.7-16.9); MCH 29.7 pg (25.7-33.7); MEAN CELL VOLUME 90.1 fl (80-96); MEAN PLT VOLUME 8.4 fl (7.5-11.1); PLATELET COUNT 257 K/MM3 (134-434); RBC 4.65 M/mm3 (4.00-5.60); RDW 14.3 % (11.9-15.9); WHITE BLOOD COUNT 20.5 K/mm3 (4.0-10.8)
[2020-10-01 08:14] LABS: PLATELET ESTIMATE ADEQUATE
[2020-10-01] MEDS: AMOX TR/POT CLAV 875MG/125MG TABLETS (FP) PO SCH (08:43)
[2020-10-01] MEDS ORDERED: PT OWN MED DRAWER 7, Y5N ONE ×2 (09:04→14:00)
[2020-10-01] MEDS: amLODIPine BESYLATE 10 MG TABLET (FP) PO SCH (09:27)
[2020-10-01] MEDS: cloNIDine HCL 0.1 MG TABLET PO SCH (09:28)
[2020-10-01] MEDS: FERROUS SO4 325 MG TABLET (FP) PO SCH (09:28)
[2020-10-01] MEDS: MUPIROCIN 2% TOPICAL OINTMENT 22 GM TUBE TP SCH (09:29)
[2020-10-01] MEDS: BUDESONIDE/FORMETEROL FUMARATE 80/4.5 mcg INHALER IH SCH (09:29)
[2020-10-01] MEDS: PANTOPRAZOLE 40 MG TABLET PO SCH (09:30)
[2020-10-01] MEDS: ENOXAPARIN NA (PORCINE) 40 MG/0.4 ML DISP.SYRIN SQ SCH (09:35)
[2020-10-01] MEDS: ACETAMINOPHEN 325 MG TABLET (FP) PO PRN (09:52)
[2020-10-01] MEDS ORDERED: predniSONE 10 MG TABLET (UD) PO SCH (10:00)
[2020-10-01 14:13] VITALS: BP 113/63; PULSE 80; TEMP 97.1
== END 2020-10-01 14:15 | disposition home or self-care (01) | DRG 194 ==
LOC: FER 14:09 → FM/S 17:30
PROVIDERS: ADMIT Internal Medicine; ATTEND Nurse Practitioner Acute Care
DX: J18.9 Pneumonia, unspecified organism (principal); N39.0 Urinary tract infection, site not specified; I50.32 Chronic diastolic (congestive) heart failure; I48.0 Paroxysmal atrial fibrillation; J44.9 Chronic obstructive pulmonary disease, unspecified; E78.5 Hyperlipidemia, unspecified; J32.9 Chronic sinusitis, unspecified; K21.9 Gastro-esophageal reflux disease without esophagitis; F31.9 Bipolar disorder, unspecified; F41.9 Anxiety disorder, unspecified; N40.0 Benign prostatic hyperplasia without lower urinary tract symptoms; R09.02 Hypoxemia; I11.0 Hypertensive heart disease with heart failure; K29.70 Gastritis, unspecified, without bleeding; F90.9 Attention-deficit hyperactivity disorder, unspecified type; R79.89 Other specified abnormal findings of blood chemistry; J45.909 Unspecified asthma, uncomplicated; Z87.820 Personal history of traumatic brain injury
CPT/HCPCS: 36415; 71045-TC-FY; 71260-TC; 80053; 81003; 81015; 82550; 82728; 82803; 83605; 83615; 83735; 84100; 84484; 85025; 85610; 85730; 86140; 86850; 86900; 86901; 87040; 87077; 87081; 87086; 93005; 94640; 97116-GP; 97161-GP; 99285-25; C9803; J0131; J0735; U0003

== ENCOUNTER 2020-10-25 19:28 | Emergency (ER) | payer OTHER, MEDICARE ==
[2020-10-25 19:46] VITALS: BP 132/85; PULSE 80; TEMP 97.4; BMI 22.8
[2020-10-25] MEDS ORDERED: SODIUM CHLORIDE 1,000 ML ONE (20:17)
[2020-10-25] MEDS ORDERED: morphine CARPU-JECT 4 MG/1 ML DISP.SYRIN IVPUSH ONE (20:17)
[2020-10-25] MEDS ORDERED: morphine SULFATE 4 MG/ML VIAL ONE (20:41)
[2020-10-25 21:08] LABS: HEMATOCRIT 45.5 % (35.4-49); HEMOGLOBIN 15.4 GM/dl (11.7-16.9); MCH 30.5 pg (25.7-33.7); MEAN CELL VOLUME 89.8 fl (80-96); MEAN PLT VOLUME 9.6 fl (7.5-11.1); PLATELET COUNT 242 K/MM3 (134-434); RBC 5.06 M/mm3 (4.00-5.60); RDW 13.7 % (11.9-15.9); WHITE BLOOD COUNT 11.3 K/mm3 (4.0-10.8)
[2020-10-25 21:46] LABS: PLATELET ESTIMATE ADEQUATE
[2020-10-25] MEDS ORDERED: ACETAMINOPHEN 1000 MG/100 ML VIAL (NON FORMULARY) IVPB ONE (21:52)
[2020-10-25] MEDS ORDERED: ACETAMINOPHEN INJECTION 100 ML IVPB ONE (21:53)
[2020-10-25 22:00] LABS: BILIRUBIN,TOTAL 0.6 mg/dl (0.2-1); POTASSIUM 3.3 mmol/L (3.5-5.1)
[2020-10-25 22:01] LABS: ALBUMIN 3.6 g/dl (3.4-5.0); CALCIUM 9.2 mg/dl (8.5-10); CREATININE 1.2 mg/dl (0.55-1.3); TOT PROT 6.9 g/dl (6.4-8.2)
[2020-10-25] MEDS ORDERED: ALBUTEROL SO4 0.083% IH SOL 2.5 MG/3 ML VIAL.NEB. NEB ONE ×2 (22:40→22:52)
[2020-10-25] MEDS ORDERED: CEFTRIAXONE 1,000 MG in DEXTROSE 5%-WATER - 50 ML IVPB ONE (23:01)
[2020-10-25] MEDS ORDERED: cefTRIAXone SODIUM 1 GM VIAL ONE (23:04)
== END 2020-10-26 00:23 | disposition left against medical advice (07) ==
LOC: FER 19:28
PROC: 3E03329 Introduction of Other Anti-infective into Peripheral Vein, Percutaneous Approach (ICD-10-PCS; principal; 2020-10-25)
PROC: 3E0F7GC Introduction of Other Therapeutic Substance into Respiratory Tract, Via Natural or Artificial Opening (ICD-10-PCS; 2020-10-25)
PROC: 3E033NZ Introduction of Analgesics, Hypnotics, Sedatives into Peripheral Vein, Percutaneous Approach (ICD-10-PCS; 2020-10-25)
PROC: 3E0337Z Introduction of Electrolytic and Water Balance Substance into Peripheral Vein, Percutaneous Approach (ICD-10-PCS; 2020-10-25)
DX: N20.0 Calculus of kidney (principal); N39.0 Urinary tract infection, site not specified
CPT/HCPCS: 36415; 71045-TC-FY; 74177-TC; 80053; 81003; 81015; 82550; 82553; 83605; 84484; 85025; 93005; 99285-25; J0131; Q9967

== ENCOUNTER 2021-02-25 09:20 | Emergency (ER) | payer OTHER, MEDICARE ==
[2021-02-25 09:33] VITALS: BMI 27.8
[2021-02-25] MEDS ORDERED: LIDOCAINE 5% TOPICAL PATCH TP ONE (09:55)
[2021-02-25] MEDS ORDERED: ACETAMINOPHEN 500 MG TABLET (FP) PO ONE (09:59)
[2021-02-25] MEDS ORDERED: ACETAMINOPHEN 325 MG TABLET (FP) ONE (10:11)
[2021-02-25] MEDS ORDERED: LIDOCAINE 5% TOPICAL PATCH ONE (10:26)
[2021-02-25 12:25] LABS: HEMOGLOBIN 14.9 GM/dl (11.7-16.9); MCHC 33.5 g/dl (32.0-35.9)
[2021-02-25 12:38] LABS: BASO % 0.8 % (0-2.0); EOS % 2.7 % (0-4.5); HEMATOCRIT 44.5 % (35.4-49); MEAN CELL VOLUME 89.6 fl (80-96); MEAN PLT VOLUME 8.8 fl (7.5-11.1); NEUT % 78.5 % (42.8-82.8); PLATELET COUNT 245 10^3/uL (134-434); RBC 4.96 M/mm3 (4.00-5.60); RDW 13.2 % (11.9-15.9); WHITE BLOOD COUNT 13.3 K/mm3 (4.0-10.8)
[2021-02-25 12:44] LABS: ALBUMIN 3.6 g/dl (3.4-5.0); ALK PHOS 64 U/L (45-117); ANION GAP 10 MMOL/L (8-16); BILIRUBIN,TOTAL 0.6 mg/dl (0.2-1); CALCIUM 8.7 mg/dl (8.5-10); CHLORIDE 106 mmol/L (98-107); CO2 22 mmol/L (21-32); CREATININE 1.1 mg/dl (0.55-1.3); GLUCOSE,RANDOM 101 mg/dl (74-106); SGOT/AST 32 U/L (15-37); SGPT/ALT 28 U/L (13-61); SODIUM 138 mmol/L (136-145)
[2021-02-25 14:08] LABS: COCAINE, UR NEGATIVE (NEGATIVE); METHADONE, UR NEGATIVE (NEGATIVE); OPIATES, URI NEGATIVE (NEGATIVE); URINE BENZODIAZEPINES NEGATIVE (NEGATIVE)
[2021-02-25 14:09] VITALS: BP 125/64; PULSE 89; TEMP 97.8
[2021-02-25 14:09] LABS: PHENCYCLIDINE,URINE NEGATIVE (NEGATIVE); URINE AMPHETAMINES POSITIVE (NEGATIVE); URINE BARBITURATES NEGATIVE (NEGATIVE)
[2021-02-25] MEDS ORDERED: LIDOCAINE PATCH REMOVAL MC SCH (22:00)
== END 2021-02-25 14:00 | disposition home or self-care (01) ==
LOC: FER 09:20
DX: R51.9 Headache, unspecified (principal); M54.6 Pain in thoracic spine; M25.512 Pain in left shoulder; V03.10XA Pedestrian on foot injured in collision with car, pick-up truck or van in traffic accident, initial encounter; Y93.01 Activity, walking, marching and hiking
CPT/HCPCS: 36415; 70450-TC; 72125-TC; 73110-TC-LT-FY; 73130-TC-LT-FY; 80053; 80307; 85025; 99285-25

== ENCOUNTER 2021-03-01 12:58 | Emergency (ER) | payer OTHER, MEDICARE ==
[2021-03-01 13:13] VITALS: BP 125/76; PULSE 81; TEMP 98.2; BMI 27.8
[2021-03-01 13:51] LABS: EPITHELIAL CELLS FEW /hpf
== END 2021-03-01 15:27 | disposition home or self-care (01) ==
LOC: FER 12:58
DX: R31.9 Hematuria, unspecified (principal)
CPT/HCPCS: 74176-TC; 81003; 81015; 87077; 87086; 99284-25

== ENCOUNTER 2021-03-04 14:36 | Emergency (ER) | payer OTHER, MEDICARE ==
[2021-03-04 15:13] VITALS: BMI 27.8
[2021-03-04] MEDS ORDERED: SODIUM CHLORIDE 1,000 ML IV STA (16:50)
[2021-03-04 17:10] LABS: BASO % 0.5 % (0-2.0); EOS % 3.7 % (0-4.5); HEMATOCRIT 43.9 % (35.4-49); HEMOGLOBIN 14.7 GM/dl (11.7-16.9); LYMPH % 9.9 % (8-40); MCHC 33.5 g/dl (32.0-35.9); MEAN CELL VOLUME 89.5 fl (80-96); MEAN PLT VOLUME 8.6 fl (7.5-11.1); MONO % 4.2 % (3.8-10.2); NEUT % 81.7 % (42.8-82.8); PLATELET COUNT 313 10^3/uL (134-434); RDW 12.8 % (11.9-15.9); WHITE BLOOD COUNT 11.9 K/mm3 (4.0-10.8)
[2021-03-04 17:25] LABS: ALBUMIN 3.4 g/dl (3.4-5.0); BILIRUBIN,TOTAL 0.4 mg/dl (0.2-1); CALCIUM 8.8 mg/dl (8.5-10); CREATININE 0.9 mg/dl (0.55-1.3); TOT PROT 6.9 g/dl (6.4-8.2)
[2021-03-04 18:45] VITALS: BP 155/86; PULSE 84; TEMP 98
== END 2021-03-04 19:28 | disposition left against medical advice (07) ==
LOC: FER 14:36
PROC: 3E0337Z Introduction of Electrolytic and Water Balance Substance into Peripheral Vein, Percutaneous Approach (ICD-10-PCS; principal; 2021-03-04)
DX: R31.9 Hematuria, unspecified (principal)
CPT/HCPCS: 36415; 71046-TC-FY; 74177-TC; 80053; 81003; 81015; 85025; 87077; 87086; 99285-25; C9803; Q9967; U0003; U0005

== ENCOUNTER 2021-03-16 16:35 | Inpatient (IN) | payer MEDICARE, OTHER ==
[2021-03-16 19:08] VITALS: BMI 26.6
[2021-03-16] MEDS ORDERED: NALOXONE (NARCAN) HCL 4 MG/0.1 ML SPRAY NS PRN (20:47)
[2021-03-16] MEDS ORDERED: ACETAMINOPHEN 325 MG TABLET (FP) PO PRN (20:47)
[2021-03-16] MEDS ORDERED: MENTHOL/PHENOL 1 EACH UD MM PRN (20:47)
[2021-03-16] MEDS ORDERED: NICOTINE 10 MG CARTRIDGE (INHALER) IH PRN (20:47)
[2021-03-16] MEDS ORDERED: MAG HYDROX/AL HYDROX/SIMETH 30 ML UNIT-DOSE CUP PO PRN (20:47)
[2021-03-16] MEDS ORDERED: P-EPHED 60MG/TRIPROLIDI 2.5MG TABLET PO PRN (20:47)
[2021-03-16] MEDS ORDERED: NALOXONE HCL 0.4 MG/ML VIAL IM PRN (20:47)
[2021-03-16] MEDS ORDERED: MAGNESIUM CITRATE 300 ML BOTTLE PO PRN (20:47)
[2021-03-16] MEDS ORDERED: ONDANSETRON *ODT* 4 MG TABLET SL PRN (20:47)
[2021-03-16] MEDS ORDERED: guaiFENesin 200 MG/10 ML 10 ML UNIT-DOSE CUPS PO PRN (20:47)
[2021-03-16] MEDS ORDERED: MELATONIN 5 MG TABLETS PO SCH (22:00)
[2021-03-17] MEDS ORDERED: diazePAM 5 MG TABLET ONE ×3 (00:21→11:04)
[2021-03-17] MEDS: diazePAM 5 MG TABLET PO SCH ×5 (00:30→22:42)
[2021-03-17] MEDS: THIAMINE HCL 100 MG TABLET (FP) PO SCH ×2 (00:30→22:42)
[2021-03-17] MEDS ORDERED: IBUPROFEN 400 MG TABLET (FP) PO ONE (01:33)
[2021-03-17] MEDS ORDERED: ACETAMINOPHEN 325 MG TABLET (FP) ONE (01:38)
[2021-03-17] MEDS ORDERED: ONDANSETRON *ODT* 4 MG TABLET ONE (01:38)
[2021-03-17] MEDS: ACETAMINOPHEN 325 MG TABLET (FP) PO PRN ×2 (01:40→22:45)
[2021-03-17] MEDS: hydrOXYzine PAMOATE 25 MG CAPSULE (FP) PO PRN ×2 (11:09→14:04)
[2021-03-17] MEDS ORDERED: hydrOXYzine PAMOATE 25 MG CAPSULE (FP) PO ONE (11:09)
[2021-03-17] MEDS ORDERED: ALBUTEROL SO4 HFA INHALER IH PRN (13:40)
[2021-03-17] MEDS: PRENATAL VITAMINS W/ FOLIC ACID TABLET (FP) PO SCH (14:04)
[2021-03-17] MEDS: METHOCARBAMOL 500 MG TABLET PO PRN (14:04)
[2021-03-17] MEDS: BUDESONIDE/FORMETEROL FUMARATE 160/4.5 mcg INHALER IH SCH ×2 (14:10→22:42)
[2021-03-17] MEDS: FLUCONAZOLE 100 MG TABLET (UD) PO SCH (19:30)
[2021-03-17] MEDS: FLUTICASONE PROP 0.05% 16 GM NASAL SPRAY NS SCH (22:40)
[2021-03-17] MEDS: DOXEPIN HCL 50 MG CAPSULE PO SCH (22:41)
[2021-03-17] MEDS: DICYCLOMINE HCL 10 MG CAPSULE PO PRN (22:44)
[2021-03-17] MEDS: ARTIFICIAL TEARS (POLYVINYL ALCOHOL) OPTH DROPS OU PRN (23:31)
[2021-03-18] MEDS: diazePAM 5 MG TABLET PO SCH ×3 (05:43→22:53)
[2021-03-18] MEDS: ACETAMINOPHEN 325 MG TABLET (FP) PO PRN ×3 (05:43→22:55)
[2021-03-18] MEDS: METHOCARBAMOL 500 MG TABLET PO PRN (07:57)
[2021-03-18] MEDS: PRENATAL VITAMINS W/ FOLIC ACID TABLET (FP) PO SCH (09:57)
[2021-03-18] MEDS: BUDESONIDE/FORMETEROL FUMARATE 160/4.5 mcg INHALER IH SCH ×2 (09:57→22:51)
[2021-03-18] MEDS: amLODIPine BESYLATE 10 MG TABLET (FP) PO SCH (09:57)
[2021-03-18] MEDS: diazePAM 5 MG TABLET PO PRN (09:58)
[2021-03-18] MEDS: PYRIDOXINE HCL (B-6) 100 MG TABLET PO SCH (09:59)
[2021-03-18] MEDS: FLUCONAZOLE 100 MG TABLET (UD) PO SCH (09:59)
[2021-03-18] MEDS: ASCORBIC ACID 500 MG TABLET (FP) PO SCH (10:00)
[2021-03-18] MEDS: FLUTICASONE PROP 0.05% 16 GM NASAL SPRAY NS SCH ×2 (10:01→22:51)
[2021-03-18] MEDS: hydrOXYzine PAMOATE 25 MG CAPSULE (FP) PO PRN (13:15)
[2021-03-18] MEDS: DICYCLOMINE HCL 10 MG CAPSULE PO PRN (13:15)
[2021-03-18] MEDS: MAGNESIUM HYDROX 2400MG/30ML ORAL SUSPENSION 30 ML CUP PO PRN (14:15)
[2021-03-18 17:11] LABS: HEMATOCRIT 45.5 % (35.4-49); MCH 29.4 pg (25.7-33.7); MCHC 33.1 g/dl (32.0-35.9); MEAN CELL VOLUME 88.9 fl (80-96); MEAN PLT VOLUME 8.9 fl (7.5-11.1); PLATELET COUNT 291 10^3/uL (134-434); RBC 5.11 M/mm3 (4.00-5.60); RDW 14.8 % (11.9-15.9)
[2021-03-18 17:20] LABS: CALCIUM 9.3 mg/dL (8.5-10.1)
[2021-03-18 17:21] LABS: ALBUMIN 3.8 g/dl (3.4-5.0); BLOOD UREA NITROGEN 13.1 mg/dL (7-18)
[2021-03-18 17:24] LABS: CREATININE 1.1 mg/dL (0.55-1.3)
[2021-03-18 17:25] LABS: BILIRUBIN,TOTAL 0.9 mg/dL (0.2-1)
[2021-03-18 17:26] LABS: TOT PROT 7.5 g/dl (6.4-8.2)
[2021-03-18] MEDS: DOXEPIN HCL 50 MG CAPSULE PO SCH (22:52)
[2021-03-18] MEDS: THIAMINE HCL 100 MG TABLET (FP) PO SCH (22:53)
[2021-03-19] MEDS: diazePAM 5 MG TABLET PO SCH ×2 (05:50→17:48)
[2021-03-19] MEDS: PYRIDOXINE HCL (B-6) 100 MG TABLET PO SCH (10:14)
[2021-03-19] MEDS: MAGNESIUM HYDROX 2400MG/30ML ORAL SUSPENSION 30 ML CUP PO PRN (10:14)
[2021-03-19] MEDS: diazePAM 5 MG TABLET PO PRN (10:14)
[2021-03-19] MEDS: ASCORBIC ACID 500 MG TABLET (FP) PO SCH (10:15)
[2021-03-19] MEDS: PRENATAL VITAMINS W/ FOLIC ACID TABLET (FP) PO SCH (10:15)
[2021-03-19] MEDS: BUDESONIDE/FORMETEROL FUMARATE 160/4.5 mcg INHALER IH SCH ×2 (10:15→22:52)
[2021-03-19] MEDS: amLODIPine BESYLATE 10 MG TABLET (FP) PO SCH (10:15)
[2021-03-19] MEDS: FLUCONAZOLE 100 MG TABLET (UD) PO SCH (10:15)
[2021-03-19] MEDS: FLUTICASONE PROP 0.05% 16 GM NASAL SPRAY NS SCH ×2 (10:16→22:52)
[2021-03-19] MEDS: ACETAMINOPHEN 325 MG TABLET (FP) PO PRN ×2 (10:17→23:02)
[2021-03-19] MEDS: ARTIFICIAL TEARS (POLYVINYL ALCOHOL) OPTH DROPS OU PRN (15:47)
[2021-03-19] MEDS: DOXEPIN HCL 50 MG CAPSULE PO SCH (22:48)
[2021-03-19] MEDS: THIAMINE HCL 100 MG TABLET (FP) PO SCH (22:49)
[2021-03-19] MEDS: hydrOXYzine PAMOATE 25 MG CAPSULE (FP) PO PRN (22:51)
[2021-03-20] MEDS ORDERED: diazePAM 5 MG TABLET PO ONE ×2 (06:00→08:00)
[2021-03-20 09:57] VITALS: BP 114/56; PULSE 74; TEMP 97
[2021-03-20] MEDS: FLUTICASONE PROP 0.05% 16 GM NASAL SPRAY NS SCH (10:19)
[2021-03-20] MEDS: PYRIDOXINE HCL (B-6) 100 MG TABLET PO SCH (10:19)
[2021-03-20] MEDS: FLUCONAZOLE 100 MG TABLET (UD) PO SCH (10:19)
[2021-03-20] MEDS: ASCORBIC ACID 500 MG TABLET (FP) PO SCH (10:19)
[2021-03-20] MEDS: BUDESONIDE/FORMETEROL FUMARATE 160/4.5 mcg INHALER IH SCH (10:19)
[2021-03-20] MEDS: amLODIPine BESYLATE 10 MG TABLET (FP) PO SCH (10:20)
[2021-03-20] MEDS: PRENATAL VITAMINS W/ FOLIC ACID TABLET (FP) PO SCH (10:20)
== END 2021-03-20 10:52 | disposition home or self-care (01) | DRG 897 ==
LOC: YASAS 16:35 → Y6N 03-17 11:57
PROVIDERS: ADMIT Allergy & Immunology; ATTEND Allergy & Immunology
PROC: HZ2ZZZZ Detoxification Services for Substance Abuse Treatment (ICD-10-PCS; principal; 2021-03-17)
DX: F13.230 Sedative, hypnotic or anxiolytic dependence with withdrawal, uncomplicated (principal); F33.1 Major depressive disorder, recurrent, moderate; F19.282 Other psychoactive substance dependence with psychoactive substance-induced sleep disorder; F19.280 Other psychoactive substance dependence with psychoactive substance-induced anxiety disorder; F19.24 Other psychoactive substance dependence with psychoactive substance-induced mood disorder; F90.0 Attention-deficit hyperactivity disorder, predominantly inattentive type; D64.9 Anemia, unspecified; I10 Essential (primary) hypertension; J43.9 Emphysema, unspecified; J32.8 Other chronic sinusitis; E78.00 Pure hypercholesterolemia, unspecified; K21.9 Gastro-esophageal reflux disease without esophagitis; N40.0 Benign prostatic hyperplasia without lower urinary tract symptoms; Z87.820 Personal history of traumatic brain injury; Z88.8 Allergy status to other drugs, medicaments and biological substances
CPT/HCPCS: 36415; 71275-TC; 80053; 82550; 82553; 84484; 85025; 85027; 85610; 86780; 87040; 93005; 93010; C9803; J0131; Q0162; U0003; U0005

== ENCOUNTER 2021-03-31 02:51 | Emergency (ER) | payer OTHER, MEDICARE ==
[2021-03-31 03:19] VITALS: BP 139/86; PULSE 81; TEMP 98.2; BMI 26.4
[2021-03-31] MEDS ORDERED: ACETAMINOPHEN 500 MG TABLET (FP) PO ONE (03:20)
[2021-03-31] MEDS ORDERED: AMOX TR/POT CLAV 875MG/125MG TABLETS (FP) PO ONE (03:21)
[2021-03-31] MEDS ORDERED: ACETAMINOPHEN 500 MG TABLET (FP) ONE (03:21)
[2021-03-31] MEDS ORDERED: DIPHTH,PERTUSS(ACELL),TET 0.5 ML DISP.SYRIN IM ONE ×2 (03:21→03:36)
[2021-03-31] MEDS ORDERED: AMOX TR/POT CLAV 875MG/125MG TABLETS (FP) ONE (03:35)
== END 2021-03-31 03:51 | disposition home or self-care (01) ==
LOC: FER 02:51
PROC: 3E0234Z Introduction of Serum, Toxoid and Vaccine into Muscle, Percutaneous Approach (ICD-10-PCS; principal; 2021-03-31)
DX: S61.451A Open bite of right hand, initial encounter (principal); W55.01XA Bitten by cat, initial encounter
CPT/HCPCS: 90471; 90715; 99283-25

== ENCOUNTER 2021-04-02 22:52 | Emergency (ER) | payer OTHER, MEDICARE ==
[2021-04-02 23:13] VITALS: BP 136/86; PULSE 83; TEMP 98; BMI 27.0
== END 2021-04-02 23:26 | disposition home or self-care (01) ==
LOC: FER 22:52
DX: Z48.00 Encounter for change or removal of nonsurgical wound dressing (principal)
CPT/HCPCS: 99281-25

== ENCOUNTER 2021-05-23 14:07 | Emergency (ER) | payer OTHER, MEDICARE ==
[2021-05-23 14:33] VITALS: BP 100/49; PULSE 69; TEMP 97.4; BMI 27.0
== END 2021-05-23 15:20 | disposition home or self-care (01) ==
LOC: FER 14:07
DX: T42.4X3A Poisoning by benzodiazepines, assault, initial encounter (principal); T40.2X1A Poisoning by other opioids, accidental (unintentional), initial encounter
CPT/HCPCS: 99281-25

== ENCOUNTER 2021-06-10 06:05 | Emergency (ER) | payer OTHER, MEDICARE ==
[2021-06-10 06:23] VITALS: BP 111/58; PULSE 75; TEMP 98.8; BMI 28.8
[2021-06-10] MEDS ORDERED: FLUCONAZOLE 150 MG TABLET PO ONE ×2 (06:27→06:31)
== END 2021-06-10 08:06 | disposition home or self-care (01) ==
LOC: FER 06:05
DX: J42 Unspecified chronic bronchitis (principal)
CPT/HCPCS: 71045-TC-FY; 93005; 99284-25

== ENCOUNTER 2021-06-12 15:31 | Inpatient (IN) | payer OTHER, MEDICARE ==
[2021-06-12 16:32] LABS: MCH 30.9 pg (25.7-33.7)
[2021-06-12 16:35] LABS: HEMATOCRIT 44.6 % (35.4-49); HEMOGLOBIN 15.4 GM/dl (11.7-16.9); MCHC 34.7 g/dl (32.0-35.9); MEAN CELL VOLUME 89.2 fl (80-96); MEAN PLT VOLUME 8.8 fl (7.5-11.1); PLATELET COUNT 260 10^3/uL (134-434); WHITE BLOOD COUNT 18.5 K/mm3 (4.0-10.8)
[2021-06-12 16:45] LABS: ALBUMIN 3.5 g/dl (3.4-5.0); ALK PHOS 55 U/L (45-117); ANION GAP 12 MMOL/L (8-16); BILIRUBIN,TOTAL 0.4 mg/dl (0.2-1); CALCIUM 8.8 mg/dl (8.5-10); CHLORIDE 103 mmol/L (98-107); CO2 23 mmol/L (21-32); CREATININE 0.9 mg/dl (0.55-1.3); GLUCOSE,RANDOM 131 mg/dl (74-106); MAGNESIUM 2.1 mg/dL (1.8-2.4); SGOT/AST 30 U/L (15-37); SGPT/ALT 39 U/L (13-61); SODIUM 138 mmol/L (136-145); TOT PROT 6.6 g/dl (6.4-8.2)
[2021-06-12] MEDS ORDERED: ALBUTEROL SO4 2.5/IPRATROPIUM 0.5 INH SOL 3 ML VIAL.NEB. NEB ONE ×2 (17:20→17:31)
[2021-06-12 17:24] LABS: PLATELET ESTIMATE ADEQUATE
[2021-06-12] MEDS ORDERED: CEFTRIAXONE 1,000 MG in DEXTROSE 5%-WATER - 50 ML IVPB ONE (17:36)
[2021-06-12] MEDS ORDERED: ALBUTEROL SO4 0.083% IH SOL 2.5 MG/3 ML VIAL.NEB. NEB PRN (17:39)
[2021-06-12] MEDS ORDERED: cefTRIAXone SODIUM 1 GM VIAL ONE (17:42)
[2021-06-12 18:10] LABS: VENOUS BASE EXCESS -1.5 mmol/L (-2-2); VENOUS O2 SATURATION 87.4 % (70-80); VENOUS PH 7.391 (7.310-7.410)
[2021-06-12] MEDS ORDERED: ACETAMINOPHEN 325 MG TABLET (FP) PO ONE (19:23)
[2021-06-12] MEDS ORDERED: ACETAMINOPHEN 325 MG TABLET (FP) ONE (19:28)
[2021-06-12] MEDS: methylPREDNISolone NA SUCC 40 MG/1 ML VIAL IVPUSH SCH (22:38)
[2021-06-12] MEDS: ALBUTEROL SO4 2.5/IPRATROPIUM 0.5 INH SOL 3 ML VIAL.NEB. NEB SCH (22:38)
[2021-06-12 23:12] VITALS: BMI 30.4
[2021-06-12] MEDS ORDERED: PATIENT'S OWN MEDICATION (NON-FORMULARY) (Benzonatate 100 MG Capsule) PO PRN (23:12)
[2021-06-12] MEDS ORDERED: PANTOPRAZOLE 40 MG TABLET PO PRN (23:12)
[2021-06-12] MEDS ORDERED: DOXEPIN HCL 50 MG CAPSULE PO SCH (23:30)
[2021-06-12] MEDS: diazePAM 5 MG TABLET PO SCH (23:33)
[2021-06-12] MEDS: cloNIDine HCL 0.1 MG TABLET PO SCH (23:33)
[2021-06-13] MEDS: BUDESONIDE/FORMETEROL FUMARATE 160/4.5 mcg INHALER IH SCH ×3 (01:09→21:13)
[2021-06-13] MEDS ORDERED: guaiFENesin/D-METHORPHAN HB 10 ML UNIT-DOSE CUPS PO PRN (01:28)
[2021-06-13] MEDS: methylPREDNISolone NA SUCC 40 MG/1 ML VIAL IVPUSH SCH ×3 (04:00→21:12)
[2021-06-13] MEDS: diazePAM 5 MG TABLET PO SCH ×4 (06:20→22:28)
[2021-06-13] MEDS: ACETAMINOPHEN 325 MG TABLET (FP) PO PRN ×3 (08:25→21:11)
[2021-06-13] MEDS: ALBUTEROL SO4 2.5/IPRATROPIUM 0.5 INH SOL 3 ML VIAL.NEB. NEB SCH ×5 (08:29→21:12)
[2021-06-13] MEDS ORDERED: DEXTROSE 5%-WATER - 50 ML IVPB ONE (09:29)
[2021-06-13] MEDS ORDERED: cefTRIAXone SODIUM 1 GM VIAL ONE (09:29)
[2021-06-13] MEDS: CHOLECALCIFEROL (VIT D3) 1,000 UNIT (25 MCG) TABLET PO SCH (09:32)
[2021-06-13] MEDS: PYRIDOXINE HCL (B-6) 50 MG TABLET (FP) PO SCH (09:32)
[2021-06-13] MEDS: amLODIPine BESYLATE 10 MG TABLET (FP) PO SCH (09:34)
[2021-06-13] MEDS: LACTOBACILLUS ACIDOPHILUS 1 TABLET PO SCH (09:34)
[2021-06-13] MEDS: ASCORBIC ACID 500 MG TABLET (FP) PO SCH (09:35)
[2021-06-13] MEDS: cloNIDine HCL 0.1 MG TABLET PO SCH ×2 (09:35→21:11)
[2021-06-13] MEDS: MULTIVITAMINS (DAILY MVI) TABLET (FP) PO SCH (09:36)
[2021-06-13] MEDS: AZITHROMYCIN 250 MG TABLET PO SCH (09:37)
[2021-06-13] MEDS: CYANOCOBALAMIN 1,000 MCG TABLET (FP) PO SCH (09:37)
[2021-06-13] MEDS: FERROUS SO4 325 MG TABLET (FP) PO SCH (09:37)
[2021-06-13] MEDS: CEFTRIAXONE 1 GM in DEXTROSE 5%-WATER - 50 ML IVPB SCH (09:43)
[2021-06-13] MEDS: FLUTICASONE PROP 0.05% 16 GM NASAL SPRAY NS SCH ×2 (09:47→21:13)
[2021-06-13] MEDS ORDERED: methylPREDNISolone NA SUCC 40 MG/1 ML VIAL IVPUSH SCH (10:00)
[2021-06-13] MEDS ORDERED: PATIENT'S OWN MEDICATION (NON-FORMULARY) (Dextroamphetamine/Amphetamine [Adderall Xr 30 Mg PO SCH (10:00)
[2021-06-13] MEDS ORDERED: PYRIDOXINE HCL (B-6) 100 MG TABLET PO SCH (10:00)
[2021-06-13] MEDS: ENOXAPARIN NA (PORCINE) 40 MG/0.4 ML DISP.SYRIN SQ SCH ×2 (16:22→18:11)
[2021-06-13] MEDS ORDERED: ARTIFICIAL TEARS (POLYVINYL ALCOHOL) OPTH DROPS OU PRN (17:31)
[2021-06-13] MEDS ORDERED: DOXEPIN HCL 25 MG CAPSULE PO SCH (22:00)
[2021-06-13] MEDS ORDERED: ATORVASTATIN CA 20 MG TABLET (FP) PO SCH (22:00)
[2021-06-14] MEDS: methylPREDNISolone NA SUCC 40 MG/1 ML VIAL IVPUSH SCH (04:00)
[2021-06-14 08:18] LABS: BASO % 1.4 % (0-2.0); HEMOGLOBIN 14.9 GM/dl (11.7-16.9); LYMPH % 5.4 % (8-40); MCH 30.4 pg (25.7-33.7); MCHC 33.8 g/dl (32.0-35.9); MEAN CELL VOLUME 89.9 fl (80-96); MEAN PLT VOLUME 8.5 fl (7.5-11.1); MONO % 3.5 % (3.8-10.2); NEUT % 89.7 % (42.8-82.8); PLATELET COUNT 278 10^3/uL (134-434); WHITE BLOOD COUNT 16.1 K/mm3 (4.0-10.8)
[2021-06-14 08:23] LABS: ALBUMIN 3.2 g/dl (3.4-5.0); BILIRUBIN,TOTAL 0.5 mg/dl (0.2-1); CALCIUM 8.9 mg/dl (8.5-10); CREATININE 0.9 mg/dl (0.55-1.3); MAGNESIUM 2.2 mg/dL (1.8-2.4); TOT PROT 6.2 g/dl (6.4-8.2)
[2021-06-14 09:01] VITALS: BP 135/73; PULSE 90; TEMP 98.1
[2021-06-14] MEDS ORDERED: cefTRIAXone SODIUM 1 GM VIAL ONE (10:16)
[2021-06-14] MEDS ORDERED: DEXTROSE 5%-WATER - 50 ML IVPB ONE (10:16)
[2021-06-14] MEDS: amLODIPine BESYLATE 10 MG TABLET (FP) PO SCH (10:21)
[2021-06-14] MEDS: ALBUTEROL SO4 2.5/IPRATROPIUM 0.5 INH SOL 3 ML VIAL.NEB. NEB SCH ×2 (10:21→11:11)
[2021-06-14] MEDS: CEFTRIAXONE 1 GM in DEXTROSE 5%-WATER - 50 ML IVPB SCH (10:21)
[2021-06-14] MEDS: CYANOCOBALAMIN 1,000 MCG TABLET (FP) PO SCH (10:21)
[2021-06-14] MEDS: AZITHROMYCIN 250 MG TABLET PO SCH (10:22)
[2021-06-14] MEDS: LACTOBACILLUS ACIDOPHILUS 1 TABLET PO SCH (10:22)
[2021-06-14] MEDS: FERROUS SO4 325 MG TABLET (FP) PO SCH (10:22)
[2021-06-14] MEDS: ASCORBIC ACID 500 MG TABLET (FP) PO SCH (10:22)
[2021-06-14] MEDS: CHOLECALCIFEROL (VIT D3) 1,000 UNIT (25 MCG) TABLET PO SCH (10:22)
[2021-06-14] MEDS: PYRIDOXINE HCL (B-6) 50 MG TABLET (FP) PO SCH (10:22)
[2021-06-14] MEDS: cloNIDine HCL 0.1 MG TABLET PO SCH (10:22)
[2021-06-14] MEDS: MULTIVITAMINS (DAILY MVI) TABLET (FP) PO SCH (10:22)
[2021-06-14] MEDS: ENOXAPARIN NA (PORCINE) 40 MG/0.4 ML DISP.SYRIN SQ SCH (10:23)
[2021-06-14] MEDS: FLUTICASONE PROP 0.05% 16 GM NASAL SPRAY NS SCH (10:23)
[2021-06-14] MEDS: BUDESONIDE/FORMETEROL FUMARATE 160/4.5 mcg INHALER IH SCH (10:23)
[2021-06-14] MEDS ORDERED: methylPREDNISolone NA SUCC 40 MG/1 ML VIAL IVPUSH SCH (16:00)
== END 2021-06-14 12:51 | disposition home or self-care (01) | DRG 191 ==
LOC: FER 15:31 → INTOOBSV 17:40 → FM/S 17:40 → OBSVTOIN 06-13 09:34
PROVIDERS: ADMIT Internal Medicine; ATTEND Nurse Practitioner Acute Care
DX: J44.1 Chronic obstructive pulmonary disease with (acute) exacerbation (principal); J45.901 Unspecified asthma with (acute) exacerbation; I50.32 Chronic diastolic (congestive) heart failure; I48.0 Paroxysmal atrial fibrillation; F98.8 Other specified behavioral and emotional disorders with onset usually occurring in childhood and adolescence; R06.02 Shortness of breath; E78.5 Hyperlipidemia, unspecified; F90.9 Attention-deficit hyperactivity disorder, unspecified type; F31.9 Bipolar disorder, unspecified; K29.70 Gastritis, unspecified, without bleeding
CPT/HCPCS: 36415; 71045-TC-FY; 80053; 82550; 82553; 82565; 82803; 83735; 84484; 84520; 85025; 93005; 93010; 94640; 94761; 99281-25; 99284-25; 99285-25; C9803; G0378; J0735; U0003; U0005

== ENCOUNTER 2021-06-15 13:57 | Emergency (ER) | payer OTHER, MEDICARE ==
[2021-06-15 14:15] VITALS: BP 110/62; PULSE 66; TEMP 97.9; BMI 30.4
== END 2021-06-15 15:47 | disposition home or self-care (01) ==
LOC: FER 13:57
DX: J44.0 Chronic obstructive pulmonary disease with (acute) lower respiratory infection (principal)
CPT/HCPCS: 99281-25

== ENCOUNTER 2021-06-18 12:53 | Emergency (ER) | payer OTHER, MEDICARE ==
[2021-06-18 13:06] VITALS: BP 151/91; PULSE 100; TEMP 98.7; BMI 28.5
[2021-06-18] MEDS ORDERED: ACETAMINOPHEN 325 MG TABLET (FP) PO ONE (13:21)
[2021-06-18] MEDS ORDERED: ACETAMINOPHEN 325 MG TABLET (FP) ONE (13:37)
[2021-06-18 13:57] LABS: HEMATOCRIT 48.2 % (35.4-49); HEMOGLOBIN 16.2 GM/dl (11.7-16.9); MCH 30.4 pg (25.7-33.7); MCHC 33.5 g/dl (32.0-35.9); MEAN CELL VOLUME 90.8 fl (80-96); MEAN PLT VOLUME 8.2 fl (7.5-11.1); PLATELET COUNT 261 10^3/uL (134-434); RBC 5.31 M/mm3 (4.00-5.60); RDW 13.5 % (11.9-15.9); WHITE BLOOD COUNT 13.9 K/mm3 (4.0-10.8)
[2021-06-18 14:25] LABS: ALBUMIN 3.4 g/dl (3.4-5.0); BILIRUBIN,TOTAL 0.7 mg/dl (0.2-1); CALCIUM 8.6 mg/dl (8.5-10); TOT PROT 6.7 g/dl (6.4-8.2)
[2021-06-18 14:48] LABS: PLATELET ESTIMATE ADEQUATE
== END 2021-06-18 14:45 | disposition home or self-care (01) ==
LOC: FER 12:53
DX: R42 Dizziness and giddiness (principal); F41.9 Anxiety disorder, unspecified; I10 Essential (primary) hypertension
CPT/HCPCS: 36415; 80053; 84484; 85025; 93005; 99283-25

== ENCOUNTER → 2021-06-26 | Emergency (ER) | payer OTHER, MEDICARE ==
[~2021-06-26] MED LIST: ALBUTEROL SO4 2.5/IPRATROPIUM 0.5 INH SOL 3 ML VIAL.NEB. NEB ONE; AZITHROMYCIN 500 MG VIAL IVPB ONE; guaiFENesin/D-METHORPHAN HB 10 ML UNIT-DOSE CUPS ONE; methylPREDNISolone NA SUCC 125 MG/2 ML VIAL ONE
[2021-06-26 23:04] VITALS: BP 144/81; PULSE 78; TEMP 97.9; BMI 28.7
== END | disposition left against medical advice (07) ==
LOC: FER 22:58
DX: F41.9 Anxiety disorder, unspecified (principal)
CPT/HCPCS: 99283-25

== ENCOUNTER 2021-06-28 03:07 | Observation (INO) | payer OTHER, MEDICARE ==
[2021-06-28 03:17] VITALS: BMI 28.7
[2021-06-28] MEDS ORDERED: ALBUTEROL SO4 2.5/IPRATROPIUM 0.5 INH SOL 3 ML VIAL.NEB. NEB ONE ×2 (03:20→05:42)
[2021-06-28] MEDS ORDERED: methylPREDNISolone NA SUCC 125 MG/2 ML VIAL IVPUSH ONE (03:47)
[2021-06-28 04:54] LABS: HEMATOCRIT 44.8 % (35.4-49); HEMOGLOBIN 14.9 GM/dL (11.7-16.9); MCH 29.7 pg (25.7-33.7); MCHC 33.3 g/dl (32.0-35.9); MEAN CELL VOLUME 89.1 fl (80-96); MEAN PLT VOLUME 8.5 fl (7.5-11.1); PLATELET COUNT 213 10^3/uL (134-434); RBC 5.03 M/mm3 (4.00-5.60); RDW 14.6 % (11.9-15.9); WHITE BLOOD COUNT 8.6 K/mm3 (4.0-10.0)
[2021-06-28 05:02] LABS: VENOUS O2 SATURATION 87.8 % (70-80); VENOUS PCO2 42.8 mmHg (38-52); VENOUS PH 7.388 (7.310-7.410)
[2021-06-28 05:26] LABS: CALCIUM 8.5 mg/dL (8.5-10.1); CHLORIDE 108 mmol/L (98-107); SODIUM 140 mmol/L (136-145)
[2021-06-28 05:27] LABS: ANION GAP 8 MMOL/L (8-16); BLOOD UREA NITROGEN 26.2 mg/dL (7-18); CO2 24 mmol/L (21-32); GLUCOSE,RANDOM 102 mg/dL (74-106)
[2021-06-28 05:30] LABS: CREATININE 0.9 mg/dL (0.55-1.3); SGOT/AST 27 U/L (15-37); SGPT/ALT 39 U/L (13-61)
[2021-06-28 05:32] LABS: BILIRUBIN,TOTAL 0.3 mg/dL (0.2-1); TOT PROT 6.2 g/dl (6.4-8.2)
[2021-06-28 05:33] LABS: ALK PHOS 64 U/L (45-117)
[2021-06-28] MEDS ORDERED: AZITHROMYCIN IVPB 500 MG in DEXTROSE 5%-WATER - 250 ML IVPB ONE (05:40)
[2021-06-28] MEDS ORDERED: guaiFENesin 200 MG/10 ML 10 ML UNIT-DOSE CUPS PO ONE (07:02)
[2021-06-28] MEDS ORDERED: HEPARIN NA (PORCINE) 5,000 UNITS/ML 1ML VIAL SQ SCH (10:00)
[2021-06-28] MEDS ORDERED: diazePAM 5 MG TABLET PO PRN (11:21)
[2021-06-28] MEDS ORDERED: PANTOPRAZOLE 40 MG TABLET PO PRN (11:21)
[2021-06-28] MEDS ORDERED: ALBUTEROL SO4 HFA INHALER IH PRN (11:21)
[2021-06-28] MEDS ORDERED: FERROUS SO4 325 MG TABLET (FP) PO SCH (11:30)
[2021-06-28] MEDS ORDERED: BUDESONIDE/FORMETEROL FUMARATE 160/4.5 mcg INHALER IH SCH (11:30)
[2021-06-28] MEDS ORDERED: amLODIPine BESYLATE 10 MG TABLET (FP) PO SCH (11:30)
[2021-06-28] MEDS ORDERED: ATORVASTATIN CA 20 MG TABLET (FP) PO SCH (11:30)
[2021-06-28] MEDS ORDERED: FLUTICASONE PROP 0.05% 16 GM NASAL SPRAY NS SCH (11:30)
[2021-06-28] MEDS ORDERED: cloNIDine HCL 0.1 MG TABLET PO SCH (11:30)
[2021-06-28] MEDS ORDERED: ALBUTEROL SO4 2.5/IPRATROPIUM 0.5 INH SOL 3 ML VIAL.NEB. NEB SCH (14:00)
[2021-06-28 14:08] VITALS: BP 154/74; PULSE 95; TEMP 98.3
== END 2021-06-28 16:42 | disposition home or self-care (01) ==
LOC: FER 03:07 → INTOOBSV 08:43 → FM/S 08:43
PROVIDERS: ADMIT Internal Medicine; ATTEND Nurse Practitioner Acute Care
PROC: 3E0F7GC Introduction of Other Therapeutic Substance into Respiratory Tract, Via Natural or Artificial Opening (ICD-10-PCS; principal; 2021-06-28)
PROC: 3E03329 Introduction of Other Anti-infective into Peripheral Vein, Percutaneous Approach (ICD-10-PCS; 2021-06-28)
PROC: 3E023GC Introduction of Other Therapeutic Substance into Muscle, Percutaneous Approach (ICD-10-PCS; 2021-06-28)
PROC: 3E033GC Introduction of Other Therapeutic Substance into Peripheral Vein, Percutaneous Approach (ICD-10-PCS; 2021-06-28)
DX: J44.9 Chronic obstructive pulmonary disease, unspecified (principal); I11.0 Hypertensive heart disease with heart failure; I48.0 Paroxysmal atrial fibrillation; E78.00 Pure hypercholesterolemia, unspecified; R06.02 Shortness of breath; F31.9 Bipolar disorder, unspecified; F41.9 Anxiety disorder, unspecified; R05.9 Cough, unspecified; K25.9 Gastric ulcer, unspecified as acute or chronic, without hemorrhage or perforation; F90.9 Attention-deficit hyperactivity disorder, unspecified type; Z88.8 Allergy status to other drugs, medicaments and biological substances; Z87.891 Personal history of nicotine dependence
CPT/HCPCS: 36415; 71045-TC-FY; 80053; 82550; 82553; 82803; 84484; 85027; 93005; 94640; 96365; 96372; 96375; 99285-25; C9803; G0378; J0735; J1644; U0003; U0005

== ENCOUNTER 2021-07-26 21:49 | Inpatient (IN) | payer OTHER, MEDICARE ==
[2021-07-26 22:01] VITALS: BMI 28.3
[2021-07-26 22:56] LABS: BASO % 0.4 % (0-2.0); EOS % 1.5 % (0-4.5); HEMOGLOBIN 17.2 GM/dL (11.7-16.9); LYMPH % 5.1 % (8-40); MCH 29.8 pg (25.7-33.7); MEAN CELL VOLUME 90.4 fl (80-96); MEAN PLT VOLUME 8.8 fl (7.5-11.1); MONO % 5.5 % (3.8-10.2); NEUT % 87.5 % (42.8-82.8); PLATELET COUNT 250 10^3/uL (134-434); RBC 5.75 M/mm3 (4.00-5.60); RDW 14.6 % (11.9-15.9); WHITE BLOOD COUNT 19.2 K/mm3 (4.0-10.0)
[2021-07-26] MEDS ORDERED: LIDOCAINE 5% TOPICAL PATCH TP ONE (23:01)
[2021-07-26] MEDS ORDERED: METHOCARBAMOL 500 MG TABLET PO ONE (23:01)
[2021-07-26] MEDS ORDERED: SODIUM CHLORIDE 0.9% 500 ML INFUS.BAG IV ONE (23:02)
[2021-07-26] MEDS ORDERED: METHOCARBAMOL 500 MG TABLET ONE (23:20)
[2021-07-26] MEDS ORDERED: LIDOCAINE 5% TOPICAL PATCH ONE (23:20)
[2021-07-26 23:21] LABS: CALCIUM 9.6 mg/dL (8.5-10.1)
[2021-07-26 23:22] LABS: ALBUMIN 3.5 g/dl (3.4-5.0); BLOOD UREA NITROGEN 21.4 mg/dL (7-18)
[2021-07-26 23:25] LABS: CREATININE 1.2 mg/dL (0.55-1.3)
[2021-07-26 23:26] LABS: BILIRUBIN,TOTAL 0.4 mg/dL (0.2-1); TOT PROT 7.5 g/dl (6.4-8.2)
[2021-07-27 00:46] LABS: EPI CELLS 2 /uL (0-25.1); HYALINE CASTS 1 /uL (0-3.1); URINE APPEARANCE CLOUDY; URINE BACTERIA >9,000 /uL (0-1359); URINE BILIRUBIN NEGATIVE (NEGATIVE); URINE COLOR YELLOW; URINE GLUCOSE (UA) NEGATIVE (NEGATIVE); URINE KETONE TRACE (NEGATIVE); URINE LEUK ESTERASE 3+ (NEGATIVE); URINE NITRITE POSITIVE (NEGATIVE); URINE PROTEIN 2+ (NEGATIVE); URINE RBC 30 /uL (0-23.9); URINE UROBILINOGEN 0.2 mg/dL (0.2-1.0); URINE WBC 2950 /uL (0-25.8)
[2021-07-27] MEDS ORDERED: CEFTRIAXONE 1,000 MG in DEXTROSE 5%-WATER - 50 ML IVPB ONE (00:56)
[2021-07-27] MEDS ORDERED: ACETAMINOPHEN 1000 MG/100 ML BAG IVPB ONE (01:36)
[2021-07-27] MEDS ORDERED: ACETAMINOPHEN INJECTION 100 ML IVPB ONE (01:38)
[2021-07-27] MEDS ORDERED: ALBUTEROL SO4 HFA INHALER IH PRN (06:10)
[2021-07-27] MEDS ORDERED: TAMSULOSIN HCL 0.4 MG CAP ONE (08:39)
[2021-07-27] MEDS: TAMSULOSIN HCL 0.4 MG CAP PO SCH (09:00)
[2021-07-27] MEDS ORDERED: ENOXAPARIN NA (PORCINE) 40 MG/0.4 ML DISP.SYRIN SQ ONE (10:45)
[2021-07-27] MEDS ORDERED: ACETAMINOPHEN 325 MG TABLET (FP) ONE (10:45)
[2021-07-27] MEDS: MULTIVITAMINS (DAILY MVI) TABLET (FP) PO SCH (10:49)
[2021-07-27] MEDS: ENOXAPARIN NA (PORCINE) 40 MG/0.4 ML DISP.SYRIN SQ SCH (10:49)
[2021-07-27] MEDS: ACETAMINOPHEN 325 MG TABLET (FP) PO PRN (10:50)
[2021-07-27] MEDS: PYRIDOXINE HCL (B-6) 100 MG TABLET PO SCH (10:50)
[2021-07-27] MEDS: CYANOCOBALAMIN 1,000 MCG TABLET (FP) PO SCH (10:50)
[2021-07-27] MEDS: CHOLECALCIFEROL (VIT D3) 5000 UNITS (125 MCG) CAP PO SCH (10:50)
[2021-07-27] MEDS: BUDESONIDE/FORMETEROL FUMARATE 160/4.5 mcg INHALER IH SCH ×2 (11:43→23:37)
[2021-07-27] MEDS ORDERED: PT OWN MED DRAWER 7, Y5N ONE (20:59)
[2021-07-27] MEDS ORDERED: diazePAM 5 MG TABLET PO PRN ×3 (21:15→23:00)
[2021-07-27] MEDS ORDERED: DOXEPIN HCL 50 MG CAPSULE PO SCH (22:00)
[2021-07-27] MEDS: cloNIDine HCL 0.1 MG TABLET PO SCH (23:36)
[2021-07-27] MEDS: ATORVASTATIN CA 20 MG TABLET (FP) PO SCH (23:36)
[2021-07-27] MEDS: GABAPENTIN 300 MG CAPSULE PO SCH (23:36)
[2021-07-27] MEDS: DOXEPIN HCL 25 MG CAPSULE PO SCH (23:37)
[2021-07-28] MEDS: VRAYLAR 1.5 MG PO SCH ×2 (00:12→23:18)
[2021-07-28] MEDS ORDERED: cefTRIAXone SODIUM 1 GM VIAL ONE (08:58)
[2021-07-28] MEDS ORDERED: DEXTROSE 5%-WATER - 50 ML IVPB ONE (08:58)
[2021-07-28] MEDS: amLODIPine BESYLATE 10 MG TABLET (FP) PO SCH (09:27)
[2021-07-28] MEDS: CYANOCOBALAMIN 1,000 MCG TABLET (FP) PO SCH (09:28)
[2021-07-28] MEDS: TAMSULOSIN HCL 0.4 MG CAP PO SCH (09:28)
[2021-07-28] MEDS: cloNIDine HCL 0.1 MG TABLET PO SCH ×2 (09:29→22:37)
[2021-07-28] MEDS: ENOXAPARIN NA (PORCINE) 40 MG/0.4 ML DISP.SYRIN SQ SCH (09:29)
[2021-07-28] MEDS: ACETAMINOPHEN 325 MG TABLET (FP) PO PRN ×2 (09:30→23:16)
[2021-07-28] MEDS: CEFTRIAXONE 1 GM in DEXTROSE 5%-WATER - 50 ML IVPB SCH (09:37)
[2021-07-28] MEDS ORDERED: PT OWN MED DRAWER 7, Y5N ONE ×3 (09:41→23:33)
[2021-07-28] MEDS: CHOLECALCIFEROL (VIT D3) 5000 UNITS (125 MCG) CAP PO SCH (09:48)
[2021-07-28] MEDS: PYRIDOXINE HCL (B-6) 100 MG TABLET PO SCH (09:48)
[2021-07-28] MEDS: MULTIVITAMINS (DAILY MVI) TABLET (FP) PO SCH (09:56)
[2021-07-28] MEDS: BUDESONIDE/FORMETEROL FUMARATE 160/4.5 mcg INHALER IH SCH ×3 (11:44→22:41)
[2021-07-28] MEDS: FLUTICASONE/UMECLIDIN/VILANTER(200-62.5-25 TRELEGY ELLIPTA) INAHLER IH SCH (14:57)
[2021-07-28] MEDS: ATORVASTATIN CA 20 MG TABLET (FP) PO SCH (22:36)
[2021-07-28] MEDS: GABAPENTIN 300 MG CAPSULE PO SCH (22:36)
[2021-07-28] MEDS: DOXEPIN HCL 25 MG CAPSULE PO SCH (22:38)
[2021-07-28] MEDS ORDERED: diazePAM 5 MG TABLET PO ONE (22:54)
[2021-07-29] MEDS ORDERED: PT OWN MED DRAWER 7, Y5N ONE ×3 (05:40→18:07)
[2021-07-29] MEDS ORDERED: [UNRECOGNIZED DRUG - OTHER] PO SCH (07:00)
[2021-07-29] MEDS ORDERED: DEXTROSE 5%-WATER - 50 ML IVPB ONE (08:11)
[2021-07-29] MEDS ORDERED: cefTRIAXone SODIUM 1 GM VIAL ONE (08:11)
[2021-07-29] MEDS: amLODIPine BESYLATE 10 MG TABLET (FP) PO SCH (09:39)
[2021-07-29] MEDS: MULTIVITAMINS (DAILY MVI) TABLET (FP) PO SCH (09:39)
[2021-07-29] MEDS: cloNIDine HCL 0.1 MG TABLET PO SCH (09:39)
[2021-07-29] MEDS: CYANOCOBALAMIN 1,000 MCG TABLET (FP) PO SCH (09:39)
[2021-07-29] MEDS: TAMSULOSIN HCL 0.4 MG CAP PO SCH (09:39)
[2021-07-29] MEDS: ENOXAPARIN NA (PORCINE) 40 MG/0.4 ML DISP.SYRIN SQ SCH (09:39)
[2021-07-29] MEDS: CEFTRIAXONE 1 GM in DEXTROSE 5%-WATER - 50 ML IVPB SCH (09:40)
[2021-07-29] MEDS: FLUTICASONE/UMECLIDIN/VILANTER(200-62.5-25 TRELEGY ELLIPTA) INAHLER IH SCH (09:41)
[2021-07-29] MEDS: CHOLECALCIFEROL (VIT D3) 5000 UNITS (125 MCG) CAP PO SCH (09:50)
[2021-07-29] MEDS: PYRIDOXINE HCL (B-6) 100 MG TABLET PO SCH (10:10)
[2021-07-29 13:24] LABS: BLOOD UREA NITROGEN 16.2 mg/dL (7-18)
[2021-07-29 13:26] LABS: BASO % 0.6 % (0-2.0); EOS % 3.6 % (0-4.5); HEMATOCRIT 49.1 % (35.4-49); HEMOGLOBIN 16.4 GM/dL (11.7-16.9); LYMPH % 13.1 % (8-40); MCH 30.1 pg (25.7-33.7); MCHC 33.3 g/dl (32.0-35.9); MEAN CELL VOLUME 90.3 fl (80-96); NEUT % 74.7 % (42.8-82.8); PLATELET COUNT 260 10^3/uL (134-434); RBC 5.44 M/mm3 (4.00-5.60); RDW 14.2 % (11.9-15.9); WHITE BLOOD COUNT 9.7 K/mm3 (4.0-10.0)
[2021-07-29 13:28] LABS: CREATININE 0.9 mg/dL (0.55-1.3)
[2021-07-29 15:28] VITALS: BP 114/65; PULSE 72; TEMP 97.8
[2021-07-29] MEDS ORDERED: diazePAM 5 MG TABLET PO SCH (22:00)
== END 2021-07-29 19:02 | disposition home or self-care (01) | DRG 690 ==
LOC: JER 21:49 → JERBED 07-27 02:49 → J8W 07-27 13:40
PROVIDERS: ADMIT Internal Medicine; ATTEND Internal Medicine
DX: N39.0 Urinary tract infection, site not specified (principal); I50.32 Chronic diastolic (congestive) heart failure; Q64.33 Congenital stricture of urinary meatus; J44.9 Chronic obstructive pulmonary disease, unspecified; I48.91 Unspecified atrial fibrillation; F31.9 Bipolar disorder, unspecified; F90.9 Attention-deficit hyperactivity disorder, unspecified type; F41.8 Other specified anxiety disorders; N40.0 Benign prostatic hyperplasia without lower urinary tract symptoms; I48.0 Paroxysmal atrial fibrillation; I11.0 Hypertensive heart disease with heart failure; M51.26 Other intervertebral disc displacement, lumbar region; D75.1 Secondary polycythemia; R33.9 Retention of urine, unspecified; B96.20 Unspecified Escherichia coli [E. coli] as the cause of diseases classified elsewhere; B95.2 Enterococcus as the cause of diseases classified elsewhere; Z87.11 Personal history of peptic ulcer disease; Z87.820 Personal history of traumatic brain injury; Z85.46 Personal history of malignant neoplasm of prostate; Q54.1 Hypospadias, penile
CPT/HCPCS: 36415; 76775-TC; 80048; 80053; 81003; 82962; 85025; 87086; 87186; 93005; 93010; 99285-25; C9803; J0131; J0735; U0003; U0005

== ENCOUNTER 2021-08-18 15:39 | Emergency (ER) | payer OTHER, MEDICARE ==
[2021-08-18 15:59] VITALS: BP 138/80; PULSE 78; TEMP 98.3; BMI 26.9
[2021-08-18 16:51] LABS: ALBUMIN 4.4 g/dl (3.4-5.0); BILIRUBIN,TOTAL 0.8 mg/dl (0.2-1); CALCIUM 9.9 mg/dl (8.5-10); CREATININE 1.1 mg/dl (0.55-1.3); TOT PROT 7.4 g/dl (6.4-8.2)
[2021-08-18 17:00] LABS: BASO % 0.4 % (0-2.0); EOS % 2.2 % (0-4.5); HEMOGLOBIN 18.6 GM/dL (11.7-16.9); LYMPH % 17.1 % (8-40); MCH 29.8 pg (25.7-33.7); MCHC 33.2 g/dl (32.0-35.9); MEAN CELL VOLUME 89.7 fl (80-96); MEAN PLT VOLUME 8.8 fl (7.5-11.1); MONO % 6.8 % (3.8-10.2); NEUT % 73.5 % (42.8-82.8); PLATELET COUNT 242 10^3/uL (134-434); RBC 6.25 M/mm3 (4.00-5.60); RDW 14.2 % (11.9-15.9); WHITE BLOOD COUNT 9.1 K/mm3 (4.0-10.0)
[2021-08-18] MEDS ORDERED: SODIUM CHLORIDE 1,000 ML IV ONE (17:00)
[2021-08-18 17:05] LABS: ACTIVATED PTT 28.7 SECONDS (25.2-36.5)
[2021-08-18 17:10] LABS: INR 1.04 (0.83-1.09); PROTHROMBIN TIME (PATIENT) 11.5 SEC (9.7-13.0)
[2021-08-18] MEDS ORDERED: ACETAMINOPHEN 325 MG TABLET (FP) ONE (18:53)
[2021-08-18 19:31] LABS: EPITHELIAL CELLS FEW /hpf
== END 2021-08-18 19:02 | disposition home or self-care (01) ==
LOC: FER 15:39
PROC: 3E0337Z Introduction of Electrolytic and Water Balance Substance into Peripheral Vein, Percutaneous Approach (ICD-10-PCS; principal; 2021-08-18)
DX: R42 Dizziness and giddiness (principal); E86.0 Dehydration
CPT/HCPCS: 36415; 70450-TC; 71045-TC-FY; 80053; 81003; 81015; 82550; 84484; 85025; 85610; 85730; 87086; 87186; 93005; 96360; 99285-25; C9803; U0003; U0005

== ENCOUNTER 2021-08-22 11:32 | Emergency (ER) | payer OTHER, MEDICARE ==
[2021-08-22] MEDS ORDERED: ONDANSETRON 4 MG/2 ML VIAL IVPUSH ONE (12:15)
[2021-08-22] MEDS ORDERED: SODIUM CHLORIDE 1,000 ML IV STA (12:15)
[2021-08-22] MEDS ORDERED: ONDANSETRON 4 MG/2 ML VIAL ONE (12:37)
[2021-08-22 12:56] LABS: BILIRUBIN,TOTAL 1.5 mg/dl (0.2-1); CALCIUM 9.4 mg/dl (8.5-10); MAGNESIUM 2.4 mg/dL (1.8-2.4); PHOSPHOROUS 3.9 mg/dl (2.5-4.9); TOT PROT 6.8 g/dl (6.4-8.2)
[2021-08-22 13:33] VITALS: BMI 27.0
[2021-08-22 13:52] LABS: CALCIUM 9.1 mg/dl (8.5-10); CREATININE 0.9 mg/dl (0.55-1.3)
[2021-08-22 13:56] LABS: BASO % 0.4 % (0-2.0); EOS % 2.3 % (0-4.5); HEMOGLOBIN 17.4 GM/dL (11.7-16.9); LYMPH % 17.4 % (8-40); MCH 29.6 pg (25.7-33.7); MCHC 31.7 g/dl (32.0-35.9); MEAN CELL VOLUME 93.2 fl (80-96); MEAN PLT VOLUME 8.5 fl (7.5-11.1); MONO % 9.5 % (3.8-10.2); NEUT % 70.4 % (42.8-82.8); PLATELET COUNT 200 10^3/uL (134-434); RDW 14.7 % (11.9-15.9); WHITE BLOOD COUNT 9.3 K/mm3 (4.0-10.0)
[2021-08-22 14:42] VITALS: BP 143/78; PULSE 76; TEMP 97.5
[2021-08-22 14:52] LABS: EPITHELIAL CELLS RARE /hpf
== END 2021-08-22 14:48 | disposition home or self-care (01) ==
LOC: FER 11:32
PROC: 3E033GC Introduction of Other Therapeutic Substance into Peripheral Vein, Percutaneous Approach (ICD-10-PCS; principal; 2021-08-22)
DX: R53.1 Weakness (principal); G47.00 Insomnia, unspecified
CPT/HCPCS: 36415; 71045-TC-FY; 80048; 80053; 81003; 81015; 83735; 84100; 85025; 93005; 99285-25

== ENCOUNTER 2021-11-07 18:26 | Emergency (ER) | payer OTHER, MEDICARE ==
[2021-11-07] MEDS ORDERED: ACETAMINOPHEN 500 MG TABLET (FP) PO ONE (18:46)
[2021-11-07] MEDS ORDERED: ACETAMINOPHEN 325 MG TABLET (FP) ONE (19:11)
== END 2021-11-07 21:45 | disposition home or self-care (01) ==
LOC: FER 18:26
DX: M79.631 Pain in right forearm (principal)
CPT/HCPCS: 93971; 99281-25